=== PATIENT | male | born 1985 | race Caucasian/White ===

== ENCOUNTER 2024-05-11 19:03 | Emergency (ER) | payer SELFPAY ==
[2024-05-11] VITALS (9 sets, daily range): BP systolic 115–150; BP diastolic 63–84; PULSE 86; RESP 16; TEMP 36.9; O2SAT 95–100
--- NOTE | ~2024-05-11 | XR_ITS ---
XR hand LT min 3V Ordering provider: Tyree Kelly MD History: . 2nd finger laceration . Comparison: None. FINDINGS: BONES: No acute fracture. Possible dislocation the proximal interphalangeal joint of the second finge r is not excluded. Clinical correlation advised. JOINT SPACES: Possible narrowing of the proximal interphalangeal joint of the second finger.. SOFT TISSUES: Soft tissue swelling is seen in the area of the distal second finger. IMPRESSION: possible subluxation of the proximal interphalangeal joint of the second finger. Clinical evaluation advised. Reviewed, dictated and finalized at location A. REPAIRER STAMPING IMPRESSION: possible subluxation of the proximal interphalangeal joint of the second finger . Clinical evaluation advised.
--- NOTE | ~2024-05-11 | XR_ITS ---
XR chest 1V portable Ordering provider: Tyree Kelly MD History: 38 years Male with . Altered mental status . Comparison: None. FINDINGS: MEDIASTINUM: The cardiac silhouette is not enlarged. LUNGS: No infiltrates, effusions or pneumothorax. OTHER: No free air under the diaphragm. IMPRESSION: No acute cardiopulmonary pathology. Reviewed, dictated and finalized at location A. RINTENDENT STEVEDORING
--- NOTE | ~2024-05-11 | CT_ITS ---
CT brain wo con Ordering provider: Tyree Kelly MD History: 38 years Male with . Altered mental status . Comparison: None. Technique: CT of the head without contrast. Radiation reduction technique utilized.The dose-length pr oduct was 681 mGy-cm FINDINGS: BRAIN PARENCHYMA AND CSF SPACES: Postoperative changes in the right frontal lobe with metallic object s. Encephalomalacia is also seen in the area. No midline shift, mass effect or hemorrhage. The brain parenchyma and CSF spaces are otherwise normal. VISUALIZED PARANASAL SINUSES: Bilateral ethmoid sinus disease. Right maxillary sinus disease. MASTOIDS: Well aerated. BONES: The bones appear intact. SOFT TISSUES: Visualized nasopharynx is normal. Superficial soft tissues are normal. IMPRESSION: No acute intracranial findings. Metallic objects seen in the right frontal area with surrounding encephalomalacia most likely postope rative. Reviewed, dictated and finalized at location A. ANICAL ESTIMATOR IMPRESSION: No acute intracranial findings. Metallic objects seen in the right frontal area with surrounding encephalomalac ia most likely postoperative.
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
[2024-05-11 20:32] LABS: Basophils Absolute Auto 0.1 K/mm3 (0.0-0.1); Basophils Percent Auto 0.6 % (0.2-1.2); Eosinophils Absolute Auto 0.2 K/mm3 (0-0.3); Eosinophils Percent Auto 1.1 % (0-4.4); Hematocrit 34.7 % (42.0-52.0); Immature Granulocyte Absolute 0.04 K/mm3 (0.00-0.031); Immature Granulocyte Percent A 0.3 % (0-0.5); Lymphocytes Absolute Auto 2.98 K/mm3 (0.9-3.2); Lymphocytes Percent Auto 22.1 % (18.3-44.2); Mean Corpuscular HGB Conc 34.6 g/dl (32-36); Mean Corpuscular Hemoglobin 30.1 pg (26-34); Monocytes Absolute Auto 1.2 K/mm3 (0.1-0.6); Neutrophils Percent Auto 66.9 % (45.5-73.1); Platelet Count Result 337 k/mm3 (150-375); Red Blood Count 3.99 M/mm3 (4.6-6.20); Red Cell Distribution Width 11.8 % (11.5-14.5); White Blood Count 13.5 K/mm3 (4.5-10.0)
[2024-05-11 20:49] LABS: Acetaminophen < 10 ug/mL (10-30); Ethanol < 10 mg/dL (<10); Salicylate < 1.0 mg/dL (2-20)
[2024-05-11 21:01] LABS: Erythrocyte Sedimentation Rate 27 mm/hr (0-20)
[2024-05-11 21:15] LABS: Alanine Aminotransferase 41 U/L (6-50); Albumin Level 4.3 g/dL (3.5-5.1); Alkaline Phosphatase 70 U/L (38-126); Anion Gap 6 mmol/L (4-12); Aspartate Amino Transferase 49 U/L (17-59); Bilirubin,Total 0.7 mg/dL (0.2-1.3); Blood Urea Nitrogen 20 mg/dL (9-20); Calcium 9.6 mg/dL (8.4-10.2); Carbon Dioxide 24 mmol/L (22-30); Chloride 104 mmol/L (98-107); Estimated CRCL calculation 153 ml/min; Estimated Glomerular Filt Rate > 60; Glucose 99 mg/dL (65-110); Potassium 3.8 mmol/L (3.4-5.0); Sodium 134 mmol/L (137-145)
[2024-05-11] MEDS: cefTRIAXone 2 GM/NS 100 ML 2 GM/100 ML BAG IVPB (23:05)
== END 2024-05-12 00:50 | disposition short-term general hospital (02) ==
PROVIDERS: Emergency Provider Preventive Medicine Aerospace Medicine
DX: S61.211A Laceration without foreign body of left index finger without damage to nail, initial encounter (principal); W26.8XXA Contact with other sharp object(s), not elsewhere classified, initial encounter; M00.9 Pyogenic arthritis, unspecified
CPT/HCPCS: 36415; 70450; 71045; 73130; 80053; 80143; 80179; 82077; 85025; 85652; 86140; 87070; 87075; 87205; 96365; 99285; J0696

== ENCOUNTER 2024-05-24 13:10 | Emergency (ER) | payer MEDICAID, SELFPAY ==
--- NOTE | ~2024-05-24 | XR_ITS ---
EXAMINATION: XR hand LT min 3V DATE: 05/24/2024 14:46 INDICATION: Left hand infection. TECHNIQUE: 3 views of left hand were obtained. COMPARISON: Left hand radiographs 05/11/2024 FINDINGS: Clinodactyly is noted. There is amputation at second metacarpophalangeal joint. No fracture . Joint spaces are normal. IMPRESSION: 1. No evidence of osteomyelitis. Reviewed, dictated and finalized at location A. SSING CLERK
[2024-05-24 13:15] VITALS: BP 139/99; PULSE 80; RESP 20; TEMP 36.4; O2SAT 100
[2024-05-24 14:31] LABS: Basophils Absolute Auto 0.1 K/mm3 (0.0-0.1); Basophils Percent Auto 0.6 % (0.2-1.2); Eosinophils Absolute Auto 0.1 K/mm3 (0-0.3); Eosinophils Percent Auto 1.6 % (0-4.4); Immature Granulocyte Absolute 0.02 K/mm3 (0.00-0.031); Immature Granulocyte Percent A 0.3 % (0-0.5); Lymphocytes Absolute Auto 2.74 K/mm3 (0.9-3.2); Lymphocytes Percent Auto 35.5 % (18.3-44.2); Mean Corpuscular HGB Conc 34.3 g/dl (32-36); Mean Corpuscular Hemoglobin 30.5 pg (26-34); Mean Corpuscular Volume 88.8 fl (80-100); Mean Platelet Volume 9.5 fl (7.4-10.4); Monocytes Absolute Auto 0.8 K/mm3 (0.1-0.6); Monocytes Percent Auto 10.6 % (2.6-8.5); Neutrophils Percent Auto 51.4 % (45.5-73.1); Platelet Count Result 351 k/mm3 (150-375); Red Blood Count 3.94 M/mm3 (4.6-6.20); Red Cell Distribution Width 11.9 % (11.5-14.5); White Blood Count 7.7 K/mm3 (4.5-10.0)
[2024-05-24 14:42] LABS: Alanine Aminotransferase 82 U/L (6-50); Albumin Level 4.6 g/dL (3.5-5.1); Alkaline Phosphatase 67 U/L (38-126); Anion Gap 4 mmol/L (4-12); Aspartate Amino Transferase 101 U/L (17-59); Bilirubin,Total 0.6 mg/dL (0.2-1.3); Blood Urea Nitrogen 15 mg/dL (9-20); Calcium 9.6 mg/dL (8.4-10.2); Carbon Dioxide 26 mmol/L (22-30); Chloride 105 mmol/L (98-107); Estimated CRCL calculation 126 ml/min; Estimated Glomerular Filt Rate > 60; Glucose 95 mg/dL (65-110); Potassium 3.8 mmol/L (3.4-5.0); Sodium 135 mmol/L (137-145)
--- NOTE | 2024-05-24 15:06 | ED_ITS ---
HPI - Extremity Injury (Upper) General Chief Complaint: Extremity Injury, Upper Stated Complaint: follow up for my finger missing L. 2nd finger Time Seen by Provider: 05/24/24 14:02 History of Present Illness HPI narrative: 38-year-old male presents to the emergency department with concerns for left 2nd digit amputation complications. Patient was seen in our ED on 05/11/2024 and was found to have and infection of the left 2nd PIP. The patient was transferred to [facility] and had his left 2nd digit amputated on admission. he presents today for pain to the region . He is also reporting some purulent drainage from the incision site. he reports subjective fevers and nausea. He is a poor historian and states he has been in the hospital since the BC barnett was performed. States he was hospitalized at 1 point since the amputation for an infection where he had received IV antibiotics at [facility] [place]. He has also been seen at [facility] and [facility] in [place] but unfortunately patient has not filled any of his antibiotics. Related Data Allergies Allergy/AdvReac Type Severity Reaction Status Date / Time penicillin V Allergy Hives Verified 05/24/24 13:12 Review of Systems 2 Review of Systems: All systems reviewed & are unremarkable except as noted in HPI and below PMFSH Past Medical History Medical History No significant past medical history Surgical History Surgical History No significant past surgical history Exam 2 Narrative: GENERAL: Well-appearing, well-nourished, and in no acute distress. HEAD: Normocephalic, atraumatic. EYES: EOMI. ENT: Nares clear, no rhinorrhea or epistaxis. Mucous membranes moist. NECK: Supple. CHEST: Clear to auscultation. No respiratory distress. HEART: Regular rate and rhythm. No murmur heard. Normal peripheral pulses. ABDOMEN: Soft, nontender, nondistended, normal active bowel sounds. EXTREMITIES: Left second digit stump at the MCP with scab overlying the incision site, no wound dehiscence, no erythema, no fluctuation or induration, no purulent drainage, no warmth SKIN: Warm, dry, no rash. NEURO: No focal deficits. Alert and oriented x3 Course Vital Signs Vital signs: Vital Signs Temperature 97.6 F 05/24/24 13:15 Pulse Rate 80 05/24/24 13:15 Respiratory Rate 20 05/24/24 13:15 Blood Pressure 139/99 H 05/24/24 13:15 Pulse Oximetry 100 05/24/24 13:15 Oxygen Delivery Room Air 05/24/24 13:15 Temperature 97.6 F 05/24/24 13:15 Pulse Rate 80 05/24/24 13:15 Respiratory Rate 20 05/24/24 13:15 Blood Pressure 139/99 H 05/24/24 13:15 Pulse Oximetry 100 05/24/24 13:15 Oxygen Delivery Room Air 05/24/24 13:15 MDM - Extremity Injury (Upper) MDM Narrative Medical decision making narrative: 38-year-old male presents emergency department with concerns for complications to his left 2nd digit after an amputation was performed on 05/12/2024 at [facility]. See HPI for further history. Triage vitals without blood pressure 139/99, otherwise unremarkable. He is afebrile and nontoxic appearing. Exam is significant for left second digit stump at the MCP with scab overlying the incision site, no wound dehiscence, no erythema, no fluctuation or induration, no purulent drainage, no warmth. Overall no evidence of infection on exam. His lab work shows no leukocytosis. ESR is normal at 15. X-ray shows no evidence of osteomyelitis. Patient was updated on workup. Will provide ibuprofen for pain and start a course of keflex for possible early infection given reported increased pain, although exam again is reassuring. Advised close f/u with surgeon at [facility] discussed strict ED return precautions. He is agreeable with the plan verbalized understanding. Discharged in stable condition. Lab Data 05/24/24 14:23 05/24/24 14:23 Labs: Lab Results 05/24/24 Range/Units 14:23 WBC 7.7 (4.5-10.0) K/mm3 RBC 3.94 L (4.6-6.20) M/mm3 Hgb 12.0 L (14.0-18.0) g/dL Hct 35.0 L (42.0-52.0) % MCV 88.8 (80-100) fl MCH 30.5 (26-34) pg MCHC 34.3 (32-36) g/dl RDW 11.9 (11.5-14.5) % Plt Count 351 (150-375) k/mm3 MPV 9.5 (7.4-10.4) fl Immature Gran % (Auto) 0.3 (0-0.5) % Neut % (Auto) 51.4 (45.5-73.1) % Lymph % (Auto) 35.5 (18.3-44.2) % [place] % (Auto) 10.6 H (2.6-8.5) % Eos % (Auto) 1.6 (0-4.4) % Baso % (Auto) 0.6 (0.2-1.2) % Lymph # (Auto) 2.74 (0.9-3.2) K/mm3 [place] # (Auto) 0.8 H (0.1-0.6) K/mm3 Eos # (Auto) 0.1 (0-0.3) K/mm3 Baso # (Auto) 0.1 (0.0-0.1) K/mm3 Abs Immat Gran (auto) 0.02 (0.00-0.031) K/mm3 Absolute Neuts (auto) 4.0 (1.3-6.7) K/mm3 Absolute Nucleated RBC 0.000 (0.0-0.012) K/mm3 Nucleated RBC % 0.0 (0.0-0.2) % ESR 15 (0-20) mm/hr Sodium 135 L (137-145) mmol/L Potassium 3.8 (3.4-5.0) mmol/L Chloride 105 (98-107) mmol/L Carbon Dioxide 26 (22-30) mmol/L Anion Gap 4 (4-12) mmol/L BUN 15 D (9-20) mg/dL Creatinine 0.70 (0.7-1.3) mg/dL Estim Creat Clear Calc 126 ml/min Estimated GFR > 60 (59 - ) Glucose 95 (65-110) mg/dL Calcium 9.6 (8.4-10.2) mg/dL Total Bilirubin 0.6 (0.2-1.3) mg/dL AST 101 H (17-59) U/L ALT 82 H (6-50) U/L Alkaline Phosphatase 67 (38-126) U/L C-Reactive Protein Pending Total Protein 7.0 (6.3-8.2) g/dL Albumin 4.6 (3.5-5.1) g/dL Discharge Plan Discharge Clinical Impression: Amputation finger-complicated Qualifiers: Encounter type: initial encounter Qualified Code(s): S68.119A - Complete traumatic metacarpophalangeal amputation of unspecified finger, initial encounter Patient Disposition: Home, Self-Care Condition: Stable Instructions: Antibiotic Form, Finger Amputation (ED) Additional Instructions: Take the antibiotics as prescribed. Take ibuprofen as needed for pain. Follow up with your surgeon at [facility]. Return to the emergency department if you develop a fever, surrounding redness, drainage or other concerning symptoms Call Dr. Jimenez for follow up at [phone] Patient Language: [place] Prescriptions: New ibuprofen 800 mg tablet 800 mg PO TID PRN (Reason: pain) Qty: 20 0RF cephalexin 500 mg capsule 500 mg PO Q6H Qty: 28 0RF Follow-up/Referrals: UNKNOWN,DOCTOR [Primary Care Provider] -
[2024-05-24 15:10] LABS: Erythrocyte Sedimentation Rate 15 mm/hr (0-20)
[2024-05-24 15:40] VITALS: PULSE 83; RESP 20; TEMP 36.8; O2SAT 100
[2024-05-24 16:13] LABS: CRP < 0.5 mg/dL (<1.0)
== END 2024-05-24 15:41 | disposition home or self-care (01) ==
PROVIDERS: Emergency Provider Physician Assistant
DX: T87.89 Other complications of amputation stump (principal); G89.18 Other acute postprocedural pain; Y83.5 Amputation of limb(s) as the cause of abnormal reaction of the patient, or of later complication, without mention of misadventure at the time of the procedure
CPT/HCPCS: 36415; 73130; 80053; 85025; 85652; 86140; 99283

== ENCOUNTER 2024-07-04 16:45 | Emergency (ER) | payer OTHER, SELFPAY ==
--- NOTE | ~2024-07-04 | XR_ITS ---
EXAMINATION: XR hand LT min 3V DATE: 07/04/2024 21:55 INDICATION: Left hand pain and swelling. TECHNIQUE: 3 views of left hand were obtained. COMPARISON: Left hand radiographs 05/24/2024, 05/11/2024 FINDINGS: There is amputation at second metacarpophalangeal joint. No fracture. Joint spaces are norm al. IMPRESSION: 1. No evidence of osteomyelitis. Reviewed, dictated and finalized at location A. THESIA DIRECTOR
--- NOTE | ~2024-07-04 | CT_ITS ---
EXAMINATION: CT brain wo con DATE: 07/04/2024 21:48 INDICATION: Altered mental status. TECHNIQUE: Computed tomography (CT) of the head was performed without intravenous contrast. The mA wa s adjusted according to patient size. Iterative reconstruction technique was employed. The dose-lengt h product was 681.00 mGy-cm. COMPARISON: Head CT 05/11/2024 FINDINGS: There is hyperdense embolization material in right frontal lobe. There is chronic encephalo malacia in right frontal lobe. There is no acute ischemic infarct or intracranial hemorrhage. The frankie tricles are normal in size. There is mucosal thickening in the paranasal sinuses. The mastoid air kat ls are normal. There are skin gonzalo at the scalp on the left. IMPRESSION: 1. Hyperdense embolization material in right frontal lobe. 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 Reviewed, dictated and finalized at location A. E TRIMMER IMPRESSION: 1. Hyperdense embolization material in right frontal lobe. Chronic encephalomal acia in right frontal lobe.
--- OUTSIDE RECORDS SUMMARY | 2024-07-04 16:49 | XMS_ITS | Referral Summary ---
Author Organization [facility] becca Address [address] [place] [address] Care Team Providers Care Personal Property Appraiser Name Role Phone No, Physician Primary Care Provider [phone] Ashley Woodward MD Unavailable [phone] Ashley Woodward MD Unavailable [phone] Encounters Date Type Department Care Team Description 06/29/2024 3:03 AM DIRECTOR OF EMPLOYER SERVICES - 06/29/2024 4:24 AM [facility] Emergency [facility] Emergency Department [address] [place] [address] Baudilio Arellano MD Phantom pain (Primary Dx) Discharge Disposition: Discharge to home or self care 06/21/2024 3:33 AM DIRECTOR OF EMPLOYER SERVICES - 06/21/2024 11:59 PM DIRECTOR OF EMPLOYER SERVICES Hospital Encounter [facility] Emergency, Room R Discharge Disposition: Discharge to home or self care 06/20/2024 9:06 AM DIRECTOR OF EMPLOYER SERVICES - 06/21/2024 1:02 AM [facility] Emergency [facility] Emergency Department [address] [place] [address] Jyotsna Moralez MD Watson, Brendan Matthew, MD PhD Substance use (Primary Dx) Discharge Disposition: Discharge to home or self care 06/18/2024 6:32 PM DIRECTOR OF EMPLOYER SERVICES - 06/18/2024 11:59 PM DIRECTOR OF EMPLOYER SERVICES Hospital Encounter [facility] Emergency, Room R Discharge Disposition: Discharge to home or self care 06/10/2024 6:03 AM DIRECTOR OF EMPLOYER SERVICES - 06/10/2024 11:59 PM DIRECTOR OF EMPLOYER SERVICES Hospital Encounter [facility] Emergency, Room R Discharge Disposition: Discharge to home or self care 06/10/2024 10:23 PM DIRECTOR OF EMPLOYER SERVICES - 06/10/2024 11:28 PM DIRECTOR OF EMPLOYER SERVICES Emergency [facility] Emergency Department [address] [place] [address] Tamika Machado MD Amputated finger, subsequent encounter (Primary Dx); Finger pain, left Discharge Disposition: Discharge to home or self care 06/06/2024 1:29 AM DIRECTOR OF EMPLOYER SERVICES - 06/06/2024 11:59 PM DIRECTOR OF EMPLOYER SERVICES Hospital Encounter [facility] BILL[facility] Emergency, Room R Discharge Disposition: Discharge to home or self care 05/29/2024 2:53 AM DIRECTOR OF EMPLOYER SERVICES - 05/29/2024 5:16 AM [facility] Emergency [facility] Emergency Department [address] [place] [phone] Montrell Mir MD Neuropathic pain of finger, left (Primary Dx); Cold exposure, initial encounter Discharge Disposition: Discharge to home or self care 05/25/2024 4:48 PM DIRECTOR OF EMPLOYER SERVICES - 05/28/2024 2:45 PM DIRECTOR OF EMPLOYER SERVICES Hospital Encounter [address] [phone] Ethan Wolf MD Osborn, MD Esdras Castañeda, Ethan Yee MD Bizarre behavior (Primary Dx); Nonadherence to medication; Use of cannabis; Psychomotor restlessness; 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]; Seizure disorder (CMS/[facility]) ([facility]) [G40.909] Discharge Disposition: Discharge to home or self care 05/20/2024 2:30 AM DIRECTOR OF EMPLOYER SERVICES - 05/20/2024 4:00 AM [facility] Emergency [address] [address] Westley Melgar MD Cold exposure, initial encounter (Primary Dx); Left hand pain Discharge Disposition: Discharge to home or self care 05/12/2024 5:43 AM DIRECTOR OF EMPLOYER SERVICES - 05/19/2024 4:14 PM DIRECTOR OF EMPLOYER SERVICES Hospital Encounter [address] [phone] Monroe Martínez MD House, Cheryl Sorensen MD PhD Parveen, MD Mark Leroy Natalia, MD Farrag, Candi Ye MD Finger infection (Primary Dx) Discharge Disposition: Discharge to home or self care 05/04/2024 4:13 AM DIRECTOR OF EMPLOYER SERVICES - 05/04/2024 11:59 PM DIRECTOR OF EMPLOYER SERVICES Hospital Encounter [facility] Emergency, Room R Discharge Disposition: Discharge to home or self care 04/30/2024 2:31 PM DIRECTOR OF EMPLOYER SERVICES - 04/30/2024 3:15 PM DIRECTOR OF EMPLOYER SERVICES Emergency [facility] Emergency Department [address] [place] [address] Cellulitis, unspecified cellulitis site (Primary Dx) Discharge Disposition: Discharge to home or self care 04/18/2024 11:11 AM DIRECTOR OF EMPLOYER SERVICES - 04/18/2024 11:59 PM DIRECTOR OF EMPLOYER SERVICES Hospital Encounter [facility] AMBULANCE BILLING Emergency, Room R Discharge Disposition: Discharge to home or self care from Last 3 Months Allergies Active Allergy Reactions Criticality Noted Date Comments Penicillins Unknown 01/14/[address] (DEPAKOTE) 500 mg EC tabletIndicatio ns:epilepsy Take 2 tablets (1,000 mg total) by mouth 2 (two) times a day 120 tablet 4 Active OLANZapine (ZyPREXA) 10 mg tabletIndicatio ns:Bipolar Disorder Take 1 tablet (10 mg total) by mouth nightly 30 tablet 4 Active ibuprofen (ADVIL,MOTRIN) 400 mg tabletIndicatio ns:Pain Take 1 tablet (400 mg total) by mouth every 6 (six) hours as needed for pain for up to 12 doses 12 tablet 5 Active gabapentin (NEURONTIN) 300 mg capsuleIndicati ons:Neuropathic Pain Take 1 capsule (300 mg total) by mouth 3 (three) times a day for 5 days 15 capsule 5 Active gabapentin (NEURONTIN) 300 mg capsuleIndicati ons:Neuropathic Pain Take 1 capsule (300 mg total) by mouth 3 (three) times a day 90 capsule 4 06/29/19 25 Discontinu ed(Reorder ) Active Problems Problem Noted Date Diagnosed Date Substance induced mood disorder (CMS/HCC) 2023 Bizarre behavior 05/26/2024 Use of cannabis 05/26/2024 Unspecified mood (affective) disorder 05/26/2024 Assessment & Plan (05/28/2024 8:43 AM DIRECTOR OF EMPLOYER SERVICES): Patient with known history of adriana, during this admission has presented with bizarre behavior, disorganization of thought, impulsivity, irritability, FOI, pressurized speech, agitation. UDS positive for cannabis but negative for amphetamine and cocaine, although has been positive in the past. Current differential diagnosis includes substance induced affective disorder (secondary to PCP) versus bipolar disorder versus schizoaffective disorder bipolar type, more support for substance given rapid resolution. Will continue medications as is given concern that patient has not been taking outpatient medications. - Continue olanzapine 5 mg BID - AGITATION: Olanzapine 10mg PO/IM Finger infection 05/23/2024 Left index finger cellulitis concerning for septic arthritis 05/12/2024 Assessment & Plan (05/22/2024 6:42 PM DIRECTOR OF EMPLOYER SERVICES): Pt sustained stretch box tender laceration over LEFT IF PIPJ on 04/30 and was treated at OSH ED with PO abx. Recovery complicated by development of dorsal IF abscess requiring I/D on 05/04 and admission for IV Abx at OSH, however patient left AMA shortly thereafter and did not fill his prescribed PO abx. Presents here 05/12. XR showed soft tissue swelling about left index finger and new joint space loss and irregularity involving the subjacent proximal interphalangeal joint, suspicious for septic arthritis. 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 Repeat Bcx 05/14 NGTD - Surgical path cx pending. - Cefepime (05/11- 05/13) - Vanc (05/11-05/16) -Bactrim 05/16-05/19 due to hyperkalemia Plan -Pathology resulted on 05/19 neg margin for OM -ID antibiotics stewardship recommended to hold on Abx if clinically improving wound as s/p completing 7 days postop Abx with negative margins of the amputated L index - Plastics following and they will set up f/u appt at 2 weeks postop. - Dressing: Daily hand washing (no soaks) with bandaid under splint Schizophrenia 05/12/2024 Assessment & Plan (05/19/2024 4:18 PM DIRECTOR OF EMPLOYER SERVICES): Resumed Haldol, seroquel, doxepin Resume outpatient follow up Homeless 05/12/2024 Assessment & Plan (05/19/2024 4:16 PM DIRECTOR OF EMPLOYER SERVICES): SW provided a list of shelters for patient to call on discharge Counseled against drug use Abscess of index finger 05/05/2024 Partial symptomatic epilepsy with complex partial seizures, intractable, without status epilepticus 01/15/2019 Intracranial hemorrhage 04/25/2016 AVM (arteriovenous malformation) brain 6 Bipolar 1 disorder 11/05/2015 Assessment & Plan (05/19/2024 4:18 PM DIRECTOR OF EMPLOYER SERVICES): Resumed home Haldol, seroquel, doxepin Resume Outpatient follow up Seizure disorder ([facility]) 11/05/2015 Assessment & Plan (05/28/2024 8:44 AM DIRECTOR OF EMPLOYER SERVICES): Has not been taking outpatient seizure medications, which include Depakote 1000 mg BID, carbamazepine 400 mg BID, clonazepam 1 mg BID. Do not believe that patient was medication compliant, which led to prescription of additional medications despite lack of need. Allegedly, patient has not had a seizure for a while despite not taking medications as evidenced by subtherapeutic lab draw. Continue medications given that patient hasn't been having seizures. Has PRN klonopin. - Continue Depakote 1000mg BID. - Continue PRN Klonopin. Assessment & Plan (05/19/2024 4:19 PM DIRECTOR OF EMPLOYER SERVICES): Pt does not recall when his last seizure was but thinks it was not that long ago (at least less than a year). Has not been taking home Carbamazepine, depakote, keppra because the people [he] was with locked up [his] medications . - Klonopin hasn't been dispensed since 03/2024 so will hold. - Restarted carbamazepine, depakote and keppra Resume outpatient follow up Immunizations Name Administration Dates Next Due Tdap 04/30/2024 Social History Tobacco Use Types Packs/Day Years Used Date Smoking Tobacco: Unknown Tobacco Cessation:Counseling Given: Not Answered Comments:Pt said I don't know if I still smoke at all Passive Exposure Comments:pt said I don't know if I still smoke at all Humiliation, Afraid, Rape, a nd Kick questionnaire Answer Date Recorded Within the last year, have y ou been afraid of your partner or ex-partner? Patient unable to answer 05/26/2024 Within the last year, have y ou been humiliated or emotionally abused in other ways by your partner or ex-partner? Patient unable to answer 05/26/2024 Within the last year, have y ou been kicked, hit, slapped, or otherwise physically hurt by your partner or ex-partner? Patient unable to answer 05/26/2024 Within the last year, have y ou been raped or forced to have any kind of sexual activity by your partner or ex-partner? Patient unable to answer 05/26/2024 Social Connection and Isolation Panel [NHANES] A nswer Date Recorded In a typical week, how many times do you talk on the phone with family, friends, or neighbors? Patient unable to answer 05/26/2024 How often do you get togethe r with friends or relatives? Patient unable to answer 05/26/2024 How often do you attend chur or synagogue services? Patient unable to answer 05/26/2024 Do you belong to any clubs o r organizations such as nondenominational groups, unions, fraternal or athletic groups, or school groups? Patient unable to answer 05/26/2024 How often do you attend meet ings of the clubs or organizations you belong to? Patient unable to answer 05/26/2024 Are you , , di vorced, , never , or living with a partner? Patient unable to answer 05/26/2024 Overall Financial Resource Strain (CARDIA) Answe r Date Recorded How hard is it for you to pa y for the very basics like food, housing, medical care, and heating? Very hard 05/26/2024 [facility] - Occupational Stress Questionnaire Answer Date Recorded Do you feel stress - tense, restless, nervous, or anxious, or unable to sleep at night because your mind is troubled all the time - these days? Patient unable to answer 05/26/2024 Hunger Vital Sign Answer Date Recorded Within the past 12 months, y ou worried that your food would run out before you got the money to buy more. Patient unable to answer 05/26/2024 Within the past 12 months, t he food you bought just didn't last and you didn't have money to get more. Patient unable to answer 05/26/2024 PRAPARE - Transportation Answer Date Re corded In the past 12 months, has l ack of transportation kept you from medical appointments or from getting medications? Yes 05/08 In the past 12 months, has l ack of transportation kept you from meetings, work, or from getting things needed for daily living? Yes 05/26/2024 Housing Stability Vital Sign Answer Cristopher e Recorded In the last 12 months, was t here a time when you were not able to pay the mortgage or rent on time? Yes 05/26/2024 In the past 12 months, how m any times have you moved where you were living? 1 05/26/2024 At any time in the past 12 m onths, were you homeless or living in a halfway (including now)? Yes 05/26/2024 Personal Safety Answer Date Recorded Have you ever been in or are you currently in a harmful physical or emotional relationship or is someone making you feel afraid or unsafe? Denies 06/29/2024 Sex and Gender Information Value Date Recorded Sex Assigned at Not on file Legal Sex Male 2:11 PM DIRECTOR OF EMPLOYER SERVICES Gender Identity Not on file Sexual Orientation Not on file Last Filed Vital Signs Vital Sign Reading Time Taken Comments Blood Pressure 126/72 06/29/2024 3:00 AM DIRECTOR OF EMPLOYER SERVICES Pulse 89 06/29/2024 3:00 AM DIRECTOR OF EMPLOYER SERVICES Temperature 36.8 ??C (98.3 ??F) 06/29/2024 3:00 AM CS T Respiratory Rate 16 06/29/2024 3:00 AM DIRECTOR OF EMPLOYER SERVICES Oxygen Saturation 100% 06/29/2024 3:00 AM DIRECTOR OF EMPLOYER SERVICES Inhaled Oxygen Concentration - - Weight 77.1 kg (170 lb) 06/29/2024 3:00 AM DIRECTOR OF EMPLOYER SERVICES Height 177.8 cm (5' 10 ) 06/10/2024 9:40 PM DIRECTOR OF EMPLOYER SERVICES Body Mass Index 24.39 06/10/2024 9:40 PM DIRECTOR OF EMPLOYER SERVICES Functional Status * Are you deaf or do you have serious difficulty hearing? Answer Date of Assessment Author No 05/26/2024 12:43 PM DIRECTOR OF EMPLOYER SERVICES Francesca Rojo, COMMERCIAL COLLECTIONS DRIVER * Are you blind or do you have serious difficulty seeing, even when wearing glasses? Answer Date of Assessment Author No 05/26/2024 12:43 PM DIRECTOR OF EMPLOYER SERVICES Francesca Rojo, COMMERCIAL COLLECTIONS DRIVER * Do you have serious difficulty walking or climbing stairs? Answer Date of Assessment Author No 05/26/2024 12:43 PM DIRECTOR OF EMPLOYER SERVICES Francesca Rojo, COMMERCIAL COLLECTIONS DRIVER * Do you have serious difficulty dressing or bathing? Answer Date of Assessment Author No 05/26/2024 12:43 PM DIRECTOR OF EMPLOYER SERVICES Francesca Rojo, COMMERCIAL COLLECTIONS DRIVER * Because of a physical, mental, or emotional condition, do you have serious difficulty doing errandsalone such as visiting the doctor? Answer Date of Assessment Author No 05/26/2024 12:43 PM Francesca Olvera, COMMERCIAL COLLECTIONS DRIVER Mental Status * Because of a physical, mental, or emotional condition, do you have serious difficulty concentrating, remembering, or making decisions? (5 years old or older) Answer Entry Date Author No 05/26/2024 12:43 PM Francesca Olvera, COMMERCIAL COLLECTIONS DRIVER Plan of Treatment Not on file Procedures Procedure Name Priority Date/Time Associated Diagnosis Comments URINALYSIS AND REFLEX TO MICROSCOPIC STAT 06/20/2024 11:42 AM DIRECTOR OF EMPLOYER SERVICES DRUGS OF ABUSE SCREEN, URINE WITHOUT CONFIRMATION STAT 06/20/2024 11:42 AM DIRECTOR OF EMPLOYER SERVICES EGFR STAT 06/20/2024 9:16 AM DIRECTOR OF EMPLOYER SERVICES VALPROIC ACID LEVEL, TOTAL STAT 06/20/2024 9:16 AM DIRECTOR OF EMPLOYER SERVICES DIFFERENTIAL AUTO STAT 06/20/2024 9:1 6 AM DIRECTOR OF EMPLOYER SERVICES ETHANOL STAT 06/20/2024 9:16 AM DIRECTOR OF EMPLOYER SERVICES THYROID FUNCTION CASCADE STAT 06/20/2024 9:16 AM DIRECTOR OF EMPLOYER SERVICES COMPREHENSIVE METABOLIC PANEL STAT 06/20/2024 9:16 AM DIRECTOR OF EMPLOYER SERVICES CBC WITH AUTO DIFFERENTIAL STAT 06/20/2024 9:16 AM DIRECTOR OF EMPLOYER SERVICES POCT RAPID HIV ANTIBODY COMMUNITY SCREENING-CONOR ELIGIBLE Routine 05/29/2024 4:17 AM DIRECTOR OF EMPLOYER SERVICES XR HAND LEFT 3 OR MORE VIEWS ED 05/29/2024 3:38 AM DIRECTOR OF EMPLOYER SERVICES ED CRITICAL CARE Routine 05/26/2024 5:15 PM DIRECTOR OF EMPLOYER SERVICES URINALYSIS, MICROSCOPIC ONLY STAT 05/25/2024 10:06 PM DIRECTOR OF EMPLOYER SERVICES DRUGS OF ABUSE SCREEN, URINE WITHOUT CONFIRMATION STAT 05/25/2024 10:06 PM DIRECTOR OF EMPLOYER SERVICES URINALYSIS AND REFLEX TO MICROSCOPIC AND CULTURE STAT 05/25/2024 10:06 PM DIRECTOR OF EMPLOYER SERVICES EGFR STAT 05/25/2024 5:37 PM DIRECTOR OF EMPLOYER SERVICES DIFFERENTIAL AUTO STAT 05/25/2024 5:3 7 PM DIRECTOR OF EMPLOYER SERVICES ETHANOL STAT 05/25/2024 5:37 PM DIRECTOR OF EMPLOYER SERVICES THYROID FUNCTION CASCADE STAT 05/25/2024 5:37 PM DIRECTOR OF EMPLOYER SERVICES BASIC METABOLIC PANEL STAT 05/25/2024 5:37 PM DIRECTOR OF EMPLOYER SERVICES CBC WITH AUTO DIFFERENTIAL STAT 05/25/2024 5:37 PM DIRECTOR OF EMPLOYER SERVICES VALPROIC ACID LEVEL, TOTAL STAT 05/25/2024 5:37 PM DIRECTOR OF EMPLOYER SERVICES CARBAMAZEPINE LEVEL, TOTAL STAT 05/25/2024 5:37 PM DIRECTOR OF EMPLOYER SERVICES DRUGS OF ABUSE SCREEN, URINE WITH REFLEX CONFIRMATION Routine 05/19/2024 9:28 AM DIRECTOR OF EMPLOYER SERVICES EGFR Routine 05/19/2024 4:58 AM DIRECTOR OF EMPLOYER SERVICES DIFFERENTIAL AUTO Routine 05/19/2024 4:5 8 AM DIRECTOR OF EMPLOYER SERVICES COMPREHENSIVE METABOLIC PANEL Routine 05/19/2024 4:58 AM DIRECTOR OF EMPLOYER SERVICES CBC WITH AUTO DIFFERENTIAL Routine 05/19/2024 4:58 AM DIRECTOR OF EMPLOYER SERVICES EGFR Routine 05/18/2024 4:54 AM DIRECTOR OF EMPLOYER SERVICES DIFFERENTIAL AUTO Routine 05/18/2024 4:5 4 AM DIRECTOR OF EMPLOYER SERVICES COMPREHENSIVE METABOLIC PANEL Routine 05/18/2024 4:54 AM DIRECTOR OF EMPLOYER SERVICES CBC WITH AUTO DIFFERENTIAL Routine 05/18/2024 4:54 AM DIRECTOR OF EMPLOYER SERVICES EGFR Routine 05/17/2024 4:30 AM DIRECTOR OF EMPLOYER SERVICES DIFFERENTIAL AUTO Routine 05/17/2024 4:3 0 AM DIRECTOR OF EMPLOYER SERVICES COMPREHENSIVE METABOLIC PANEL Routine 05/17/2024 4:30 AM DIRECTOR OF EMPLOYER SERVICES CBC WITH AUTO DIFFERENTIAL Routine 05/17/2024 4:30 AM DIRECTOR OF EMPLOYER SERVICES EGFR Routine 05/16/2024 5:18 AM DIRECTOR OF EMPLOYER SERVICES DIFFERENTIAL AUTO Routine 05/16/2024 5:1 8 AM DIRECTOR OF EMPLOYER SERVICES VANCOMYCIN LEVEL TROUGH Timed 05/16/2024 5:18 AM DIRECTOR OF EMPLOYER SERVICES COMPREHENSIVE METABOLIC PANEL Routine 05/16/2024 5:18 AM DIRECTOR OF EMPLOYER SERVICES CBC WITH AUTO DIFFERENTIAL Routine 05/16/2024 5:18 AM DIRECTOR OF EMPLOYER SERVICES EGFR Routine 05/15/2024 4:41 AM DIRECTOR OF EMPLOYER SERVICES DIFFERENTIAL AUTO Routine 05/15/2024 4:4 1 AM DIRECTOR OF EMPLOYER SERVICES VANCOMYCIN LEVEL TROUGH Timed 05/15/2024 4:41 AM DIRECTOR OF EMPLOYER SERVICES COMPREHENSIVE METABOLIC PANEL Routine 05/15/2024 4:41 AM DIRECTOR OF EMPLOYER SERVICES CBC WITH AUTO DIFFERENTIAL Routine 05/15/2024 4:41 AM DIRECTOR OF EMPLOYER SERVICES BLOOD CULTURE Routine 05/14/2024 11:29 PM DIRECTOR OF EMPLOYER SERVICES BLOOD CULTURE Routine 05/14/2024 11:29 PM DIRECTOR OF EMPLOYER SERVICES EGFR Routine 05/14/2024 5:08 AM DIRECTOR OF EMPLOYER SERVICES DIFFERENTIAL AUTO Routine 05/14/2024 5:0 8 AM DIRECTOR OF EMPLOYER SERVICES COMPREHENSIVE METABOLIC PANEL Routine 05/14/2024 5:08 AM DIRECTOR OF EMPLOYER SERVICES CBC WITH AUTO DIFFERENTIAL Routine 05/14/2024 5:08 AM DIRECTOR OF EMPLOYER SERVICES VANCOMYCIN LEVEL TROUGH STAT 05/13/2024 4:15 PM DIRECTOR OF EMPLOYER SERVICES EGFR Routine 05/13/2024 6:14 AM DIRECTOR OF EMPLOYER SERVICES DIFFERENTIAL AUTO Routine 05/13/2024 6:1 4 AM DIRECTOR OF EMPLOYER SERVICES COMPREHENSIVE METABOLIC PANEL Routine 05/13/2024 6:14 AM DIRECTOR OF EMPLOYER SERVICES CBC WITH AUTO DIFFERENTIAL Routine 05/13/2024 6:14 AM DIRECTOR OF EMPLOYER SERVICES VALPROIC ACID LEVEL, TOTAL Routine 05/13/2024 6:14 AM DIRECTOR OF EMPLOYER SERVICES CARBAMAZEPINE LEVEL, TOTAL Routine 05/13/2024 6:14 AM DIRECTOR OF EMPLOYER SERVICES B CHECK SAMPLE STAT 05/12/2024 12:27 PM DIRECTOR OF EMPLOYER SERVICES AEROBIC AND ANAEROBIC CULTURE AND GRAM STAIN Routine 05/12/2024 12:27 PM DIRECTOR OF EMPLOYER SERVICES SURGICAL PATHOLOGY Routine 05/12/2024 12 :00 PM DIRECTOR OF EMPLOYER SERVICES TYPE AND SCREEN STAT 05/12/2024 9:30 AM DIRECTOR OF EMPLOYER SERVICES XR HAND LEFT 3 OR MORE VIEWS ED 05/12/2024 6:27 AM DIRECTOR OF EMPLOYER SERVICES EGFR STAT 05/12/2024 6:05 AM DIRECTOR OF EMPLOYER SERVICES DIFFERENTIAL AUTO STAT 05/12/2024 6:0 5 AM DIRECTOR OF EMPLOYER SERVICES CRP (ACUTE PHASE) STAT 05/12/2024 6:0 5 AM DIRECTOR OF EMPLOYER SERVICES ERYTHROCYTE SEDIMENTATION RATE STAT 05/12/2024 6:05 AM DIRECTOR OF EMPLOYER SERVICES COMPREHENSIVE METABOLIC PANEL STAT 05/12/2024 6:05 AM DIRECTOR OF EMPLOYER SERVICES CBC WITH AUTO DIFFERENTIAL STAT 05/12/2024 6:05 AM DIRECTOR OF EMPLOYER SERVICES BLOOD CULTURE STAT 05/12/2024 6:05 AM DIRECTOR OF EMPLOYER SERVICES BLOOD CULTURE STAT 05/12/2024 6:05 AM DIRECTOR OF EMPLOYER SERVICES XR FINGER 2ND INDEX LEFT ED 04/30/2024 2:29 PM DIRECTOR OF EMPLOYER SERVICES HEPATITIS PANEL, ACUTE Routine 0 1:01 PM CDT from Last 3 Months or Most Recently Relevant to Health Maintenance Results * Urinalysis reflex to microscopic (06/20/2024 11:42 AM DIRECTOR OF EMPLOYER SERVICES) Color, ur Straw Yellow Clarity, ur Clear Clear [facility] Specific gravity, ur 1.009 1.003 - 1.030 [facility] pH, urine 7.0 [facility] Comment: Interpretive Data ? Urine pH is affected by diet, medications, systemic acid-base disturbances, and renal tubular function. ??pH may affect urinary stone formation. ??For example, urine pH below 6.0 may help reduce the tendency for calcium phosphate stones and pH greater than 6.0 may reduce the tendency for uric acid stone formation. Source: [facility] Current Interpretive Data was last revised on 2017 Protein, ur ql Negative Negative [facility] Glucose, ur ql Negative Negative [facility] Ketones, ur Negative Negative [facility] Bilirubin, ur Negative Negative [facility] Blood, ur Negative Negative [facility] Urobilinogen, ur <2.0 <2.0 mg/dL [facility] Nitrite, ur Negative Negative [facility] Leukocyte esterase, ur Negative Negative [facility] UA reflex comment Reflex conditions for microscopic UA not met. [facility] Urine 06/20/2024 11:4 2 AM DIRECTOR OF EMPLOYER SERVICES 06/20/2024 12:46 PM DIRECTOR OF EMPLOYER SERVICES Jyotsna Moralez MD LAB URINE ORDERABLES Final Result [facility] Department [place] [address] * (ABNORMAL) Drugs of Abuse Screen, Urine without Confirmation (06/20/2024 11:42 AM DIRECTOR OF EMPLOYER SERVICES) Amphetamine, ur Not Detected [facility] 500ng/mL Comment: Interpretive Data - Amphetamines: ??Samples containing greater than 500 ng/mL d-methamphetamine ??or other cross-reacting amphetamine compounds are reported as positive. ??Amphetamine immunoassays are subject to significant false positive rates due to cross-reactivity of non-amphetamine drugs. Confirmatory testing required for definitive results. Current Interpretive Data was last reviewed 2023. Barbiturates, ur Not Detected CutOff 200ng/mL [facility] Comment: Interpretive Data - Barbiturates: ??Samples containing greater than 200 ng/mL secobarbital or other cross-reacting barbiturate compounds are reported as positive. ??False positive and false negative results are possible. Confirmatory testing required for definitive results. Current Interpretive Data was last reviewed 2023. Benzodiazepines, ur Not Detected CutOff 100ng/mL [facility] Comment: Interpretive Data - Benzodiazepines: ??Samples containing greater than 100 ng/mL nordiazepam or other cross-reacting compounds are reported as positive. False positive and false negative results are possible. Confirmatory testing required for definitive results. Current Interpretive Data was last reviewed 2023. Cannabinoids, ur Screen Positive, presumptive (A) CutOff 50 ng/mL [facility] Comment: Interpretive Data - Cannabinoids: ??Samples containing greater than 50 ng/mL delta-9 THC -COOH or other cross-reacting compounds are reported as positive. ??False positive and false negative results are possible. ??Confirmatory testing required for definitive results. Current Interpretive Data was last reviewed 2023. Cocaine, ur Not Detected CutOff 150ng/mL [facility] Comment: Interpretive Data - Cocaine: ??Samples containing greater than 150 ng/mL benzoylecgonine or other cross-reacting compounds are reported as positive. False positive and false negative results are possible. Confirmatory testing required for definitive results. Current Interpretive Data was last reviewed 2023. Fentanyl, Ur Not Detected CutOff 5 ng/mL [facility] Comment: Interpretive Data - Fentanyl: ?? Samples containing greater than 5 ng/mL norfentanyl, fentanyl, or other cross-reacting fentanyl compounds are reported as positive. False positive and false negative results are possible. Confirmatory testing required for definitive results. Current Interpretive Data was last reviewed 2023. Methadone, ur Not Detected CutOff 300ng/mL [facility] Comment: Interpretive Data - Methadone: ??Samples containing greater than 300 ng/mL d,l-methadone or other cross-reacting compounds are reported as positive. ??False positive and false negative results are possible. Confirmatory testing required for definitive results. Current Interpretive Data was last reviewed 2023. Opiates, ur Not Detected CutOff 300ng/mL [facility] Comment: Interpretive Data - Opiates: ??Samples containing greater than 300 ng/mL morphine or other cross-reacting compounds are reported as positive. ??False positive and false negative results are possible. Confirmatory testing required for definitive results. Current Interpretive Data was last reviewed 2023. Oxycodone, ur Not Detected CutOff 100ng/mL [facility] Comment: Interpretive Data - Oxycodone: ??Samples containing greater than 100 ng/mL oxycodone or other cross-reacting compounds are reported as ??positive. ??False positive and false negative results are possible. Confirmatory testing required for definitive results. Current Interpretive Data was last reviewed 2023. Phencyclidine, ur Not Detected CutOff 25 ng/mL [facility] Comment: Interpretive Data - Phencyclidine: ??Samples containing greater than 25 ng/mL phencyclidine or other cross-reacting compounds are reported as positive. ??False positive and false negative results are possible. Confirmatory testing required for definitive results. Current Interpretive Data was last reviewed 2023. Urine Creatinine 37 mg/dL [facility] Comment: Interpretive Data Urine Creatinine: < 10 mg/dL is extremely dilute = or > 10 but < 20 mg/dL is dilute = or > 20 mg/dL is normal Current Interpretive Data was last revised on 2017. Urine 06/20/2024 11:4 2 AM DIRECTOR OF EMPLOYER SERVICES 06/20/2024 12:46 PM DIRECTOR OF EMPLOYER SERVICES Narrative [facility] - 06/20/2024 1:25 PM DIRECTOR OF EMPLOYER SERVICES Drug of Abuse screening is performed by immunoassay for medical purposes only. ??This is not to be used for Pain Management purposes. us Jyotsna Moralez MD LAB URINE ORDERABLES Final Result [facility] Department [place] [address] * eGFR (06/20/2024 9:16 AM DIRECTOR OF EMPLOYER SERVICES) Pathologist [facility] eGFR >90 >=60 mL/min/1. 73 m2 Comment: Interpretive Data Reference Interval Normal ?>/= 90 mL/min/1.73m2 Mildly decreased* ? 60 - 89 mL/min/1.73m2 Mildly to moderately decreased ?45 - 59 mL/min/1.73m2 Moderately to severely decreased ??30 - 44 mL/min/1.73m2 Severely decreased ?15 - 29 mL/min/1.73m2 Kidney Failure ?< 15 ??mL/min/1.73m2 *Relative to young adult level Estimated glomerular filtration rate is determined by the 2020 CKD-EPI equation recommended by the National Kidney Foundation (A Unifying Approach to GFR Estimation: Recommendations of the NKF-ASK Task Force on Reassessing the Inclusion of Race in Diagnosing Kidney Disease, JASN 2020). The CKD-EPI equation should not be used for patients with unstable renal function and has not been validated in children and those over 70. Current interpretive data was last reviewed 2021. Blood 06/20/2024 9:16 AM DIRECTOR OF EMPLOYER SERVICES 06/20/2024 9:54 AM DIRECTOR OF EMPLOYER SERVICES us Jyotsna Moralez MD LAB BLOOD ORDERABLES Final Result [facility] Department [place] [address] * Differential, auto (06/20/2024 9:16 AM DIRECTOR OF EMPLOYER SERVICES) Pathologist [facility] Neutrophil abs 5.3 1.5 - 6.5 K/cumm Imm gran abs 0.0 0.0 - 0.1 K/cumm [facility] Lymphocyte abs 2.8 0.8 - 3.3 K/cumm [facility] Monocyte abs 0.6 0.2 - 0.8 K/cumm [facility] Eosinophil abs 0.2 0.0 - 0.5 K/cumm [facility] Basophil abs 0.1 0.0 - 0.1 K/cumm [facility] Neutrophil pct 58.8 % [facility] Comment: Interpretive Data Percent cell count reference ranges are not reported, since discordance with absolute values may lead to misinterpretation of CBC data. Current Interpretive Data was last revised on 2017. Imm gran pct 0.4 % [facility] Comment: Interpretive Data Percent cell count reference ranges are not reported, since discordance with absolute values may lead to misinterpretation of CBC data. Current Interpretive Data was last revised on 2017. Lymphocyte pct 31.7 % [facility] Comment: Interpretive Data Percent cell count reference ranges are not reported, since discordance with absolute values may lead to misinterpretation of CBC data. Current Interpretive Data was last revised on 2017. Monocyte pct 6.1 % [facility] Comment: Interpretive Data Percent cell count reference ranges are not reported, since discordance with absolute values may lead to misinterpretation of CBC data. Current Interpretive Data was last revised on 2017. Eosinophil pct 2.3 % [facility] Comment: Interpretive Data Percent cell count reference ranges are not reported, since discordance with absolute values may lead to misinterpretation of CBC data. Current Interpretive Data was last revised on 2017. Basophil pct 0.7 % [facility] Comment: Interpretive Data Percent cell count reference ranges are not reported, since discordance with absolute values may lead to misinterpretation of CBC data. Current Interpretive Data was last revised on 2017. Blood 06/20/2024 9:16 AM DIRECTOR OF EMPLOYER SERVICES 06/20/2024 9:46 AM DIRECTOR OF EMPLOYER SERVICES Jyotsna Moralez MD LAB BLOOD ORDERABLES Final Result Performing Organization Address [facility] Co de Phone Number [facility] Department [place] [address] * Thyroid Function Pratt (06/20/2024 9:16 AM DIRECTOR OF EMPLOYER SERVICES) TSH 0.91 0.30 - 4.20 mcIUnit/mL Blood 06/20/2024 9:16 AM DIRECTOR OF EMPLOYER SERVICES 06/20/2024 9:46 AM DIRECTOR OF EMPLOYER SERVICES Jyotsna Moralez MD LAB BLOOD ORDERABLES Final Result Performing Organization Address [facility]/ZIP Co de Phone Number [facility] Department [place] [address] * CBC with auto differential (06/20/2024 9:16 AM DIRECTOR OF EMPLOYER SERVICES) Pathologist [facility] WBC 9.0 3.8 - 9.9 K/cumm Hgb 13.3 13.0 - 17.5 g/dL [facility] Hct 39.6 38.9 - 50.3 % [facility] Plt 380 150 - 400 K/cumm [facility] MPV 9.6 9.1 - 12.3 fL [facility] RBC 4.39 4.30 - 5.80 M/cumm [facility] MCV 90.2 81.3 - 96.4 fL [facility] MCH 30.3 27.1 - 33.3 pg [facility] MCHC 33.6 32.3 - 35.7 g/dL [facility] RDW CV 12.1 11.1 - 14.9 % [facility] RDW SD 40.0 35.7 - 48.1 fL [facility] NRBC abs 0.00 0.00 - 0.01 K/cumm [facility] Blood (Blood, Venous) 06/20/2024 9:16 AM DIRECTOR OF EMPLOYER SERVICES 06/20/2024 9:46 AM DIRECTOR OF EMPLOYER SERVICES us Jyotsna Moralez MD LAB BLOOD ORDERABLES Final Result [facility] Department [place] [address] * Ethanol (06/20/2024 9:16 AM DIRECTOR OF EMPLOYER SERVICES) Pathologist [facility] Ethanol <10 <=10 mg/dL Comment: Interpretive Data Legal limit of intoxication > or = 80 mg/dL Levels > or = 400 mg/dL are potentially TOXIC. Current interpretive data was last revised on 2018. Blood 06/20/2024 9:16 AM DIRECTOR OF EMPLOYER SERVICES 06/20/2024 9:46 AM DIRECTOR OF EMPLOYER SERVICES us Jyotsna Moralez MD LAB BLOOD ORDERABLES Final Result [facility] Department [place] [address] * (ABNORMAL) Valproic acid level, total (06/20/2024 9:16 AM DIRECTOR OF EMPLOYER SERVICES) Valproic Acid <15.0(L) 50.0 - 100.0 mcg/mL Comment: Interpretive Data Therapeutic or toxic effects of anticonvulsant drugs may occur at different concentrations in different patients and the correlation between dose and clinical effect must be evaluated individually. Current interpretative data was last revised on 13. Blood 06/20/2024 9:16 AM DIRECTOR OF EMPLOYER SERVICES 06/20/2024 9:54 AM DIRECTOR OF EMPLOYER SERVICES us Jyotsna Moralez MD LAB BLOOD ORDERABLES Final Result [facility] Department [place] [address] * (ABNORMAL) Comprehensive metabolic panel (06/20/2024 9:16 AM DIRECTOR OF EMPLOYER SERVICES) Pathologist [facility] Sodium 139 135 - 145 mmol/L Potassium, pl 4.4 3.3 - 4.9 mmol/L [facility] Chloride 101 97 - 110 mmol/L [facility] CO2 29 22 - 32 mmol/L [facility] Anion gap 9 2 - 15 mmol/L [facility] BUN 10 6 - 25 mg/dL [facility] Creatinine 0.67(L) 0.80 - 1.30 mg/dL [facility] Glucose 88 70 - 199 mg/dL [facility] Comment: Interpretive Data Fasting glucose >/= 126 mg/dl is diagnostic for diabetes. ?? Fasting is defined as no caloric intake for at least 8 hours. Fasting glucose between 100 mg/dl to 125 mg/dl is diagnostic of prediabetes. In a patient with classic symptoms of hyperglycemia or hyperglycemic crisis, a random glucose >/= 200 mg/dl is diagnostic for diabetes. In the absence of unequivocal hyperglycemia, results should be confirmed by repeat testing. The classification and Diagnosis of Diabetes Diabetes Care 202; 46: S19-S40. Current interpretive data was last revised 2022. Calcium 10.2 8.5 - 10.3 mg/dL [facility] Bilirubin, total 0.5 0.1 - 1.2 mg/dL [facility] Protein, pl 7.6 6.5 - 8.5 g/dL [facility] Albumin 4.7 3.5 - 5.0 g/dL [facility] Alk phos 84 40 - 130 Units/L [facility] ALT 28 7 - 55 Units/L [facility] AST 38 10 - 50 Units/L [facility] Blood 06/20/2024 9:16 AM DIRECTOR OF EMPLOYER SERVICES 06/20/2024 9:46 AM DIRECTOR OF EMPLOYER SERVICES us Jyotsna Moralez MD LAB BLOOD ORDERABLES Final Result [facility] Department [place] [address] * POCT Rapid HIV Antibody Community Screening-[facility] Eligible (05/29/2024 4:17 AM DIRECTOR OF EMPLOYER SERVICES) [facility] Rapid HIV, POC Negative Negative QC Control Line Acceptable Blood 05/29/2024 4:17 AM DIRECTOR OF EMPLOYER SERVICES us Montrell Mir MD POINT OF CARE TEST ORDERAB LES Final Result * XR Hand Left 3+ views (05/29/2024 3:38 AM DIRECTOR OF EMPLOYER SERVICES) Anatomical Region Laterality Modality Upper Extremities, Hand Left Computed Radiography 05/29/2024 3:41 AM DIRECTOR OF EMPLOYER SERVICES Impressions 05/29/2024 7:26 AM DIRECTOR OF EMPLOYER SERVICES The current study is compared with the prior radiograph dated 05/12/2024. 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 ??There is mild soft tissue swelling of the stump site. ??No osseous erosions of the left hand. ??No acute fracture of the right hand. ??No retained radiodense foreign bodies. Joint spaces are preserved. ??Alignment is normal. Dictated by: Gibson Comer MD The radiology attending physician has personally reviewed this study, and had reviewed and/or edited this written report and agrees with it. Electronically signed by: Junior Caldwlel M.D. Narrative 05/29/2024 7:26 AM DIRECTOR OF EMPLOYER SERVICES EXAMINATION: XR HAND LEFT 3 OR MORE VIEWS HISTORY: ??Pain at amputation site Procedure Note Junior Caldwell MD - 05/29/2024 EXAMINATION: XR HAND LEFT 3 OR MORE VIEWS HISTORY: Pain at amputation site IMPRESSION: The current study is compared with the prior radiograph dated 05/12/2024. 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 There is mild soft tissue swelling of the stump site. No osseous erosions of the left hand. No acute fracture of the right hand. No retained radiodense foreign bodies. Joint spaces are preserved. Alignment is normal. Dictated by: Gibson Comer MD The radiology attending physician has personally reviewed this study, and had reviewed and/or edited this written report and agrees with it. Electronically signed by: Junior Caldwell M.D. us Henry Hooks MD IMG XR PROCEDURES Fin al Result * Critical Care (05/26/2024 5:15 PM DIRECTOR OF EMPLOYER SERVICES) Narrative Ethan Dewitt MD - 05/26/2024 5:15 PM DIRECTOR OF EMPLOYER SERVICES Ethan Dewitt MD ? 05/26/2024 ??5:17 PM Critical Care Performed by: Ethan Dewitt MD Authorized by: Ethan Dewitt MD ?? Critical care provider statement: As reflected in the history, physical exam, orders, notes, and/or MDM, I was personally present while the patient was critically ill and provided critical care services for 20 minutes, excluding time involved in separately billable procedures. ??Critical care was necessary to treat or prevent imminent or life-threatening deterioration of the following condition(s): ?? acute ingestion ?? acute psychotic episode ??Critical care was time spent by me providing the following: ? serial bedside patient exams ?? sedatives and psychotropic medications and psychological evaluation with medical clearance ?? I provided emergent necessary critical care medicine services to this patient. I ordered and reviewed test results and/or imaging studies. I spent time discussing the management of this critically ill patient with consultants and the medical staff. I spent time documenting in the medical record. I spent time discussing the management and therapeutic options for this critically ill patient with the patient themselves or with the appropriate designated surrogate decision-maker. us Ethan Dewitt MD IN CLINIC/BEDSIDE ORDERABL ES Final Result * (ABNORMAL) Urinalysis reflex to microscopic and culture Urine (05/25/2024 10:06 PM DIRECTOR OF EMPLOYER SERVICES) Color, ur Yellow Yellow Clarity, ur Clear Clear [facility] Specific gravity, ur 1.036(H) 1.003 - 1.030 [facility] pH, urine 6.5 [facility] Comment: Interpretive Data ? Urine pH is affected by diet, medications, systemic acid-base disturbances, and renal tubular function. ??pH may affect urinary stone formation. ??For example, urine pH below 6.0 may help reduce the tendency for calcium phosphate stones and pH greater than 6.0 may reduce the tendency for uric acid stone formation. Source: [facility] [employer] Current Interpretive Data was last revised on 2017 Protein, ur ql 1+(A) Negative [facility] Glucose, ur ql Negative Negative [facility] Ketones, ur Trace Negative [facility] Bilirubin, ur Negative Negative [facility] Blood, ur Negative Negative [facility] Urobilinogen, ur <2.0 <2.0 mg/dL [facility] Nitrite, ur Negative Negative [facility] Leukocyte esterase, ur Negative Negative [facility] UA reflex comment Reflex to microscopic UA will be performed. [facility] Urine 05/25/2024 10:0 6 PM DIRECTOR OF EMPLOYER SERVICES 05/25/2024 10:08 PM DIRECTOR OF EMPLOYER SERVICES us Maria Guadalupe Hein NP LAB MICROBIOLOGY - GENERAL ORDERABLES Final Result [facility] Department [place] [address] * (ABNORMAL) Drugs of Abuse Screen, Urine without Confirmation (05/25/2024 10:06 PM DIRECTOR OF EMPLOYER SERVICES) [facility] Amphetamine, ur Not Detected CutOff 500ng/mL Comment: Interpretive Data - Amphetamines: ??Samples containing greater than 500 ng/mL d-methamphetamine ??or other cross-reacting amphetamine compounds are reported as positive. ??Amphetamine immunoassays are subject to significant false positive rates due to cross-reactivity of non-amphetamine drugs. Confirmatory testing required for definitive results. Current Interpretive Data was last reviewed 2023. Barbiturates, ur Not Detected CutOff 200ng/mL [facility] Comment: Interpretive Data - Barbiturates: ??Samples containing greater than 200 ng/mL secobarbital or other cross-reacting barbiturate compounds are reported as positive. ??False positive and false negative results are possible. Confirmatory testing required for definitive results. Current Interpretive Data was last reviewed 2023. Benzodiazepines, ur Not Detected CutOff 100ng/mL [facility] Comment: Interpretive Data - Benzodiazepines: ??Samples containing greater than 100 ng/mL nordiazepam or other cross-reacting compounds are reported as positive. False positive and false negative results are possible. Confirmatory testing required for definitive results. Current Interpretive Data was last reviewed 2023. Cannabinoids, ur Screen Positive, presumptive (A) CutOff 50 ng/mL [facility] Comment: Interpretive Data - Cannabinoids: ??Samples containing greater than 50 ng/mL delta-9 THC -COOH or other cross-reacting compounds are reported as positive. ??False positive and false negative results are possible. ??Confirmatory testing required for definitive results. Current Interpretive Data was last reviewed 2023. Cocaine, ur Not Detected CutOff 150ng/mL [facility] Comment: Interpretive Data - Cocaine: ??Samples containing greater than 150 ng/mL benzoylecgonine or other cross-reacting compounds are reported as positive. False positive and false negative results are possible. Confirmatory testing required for definitive results. Current Interpretive Data was last reviewed 2023. Fentanyl, Ur Not Detected CutOff 5 ng/mL [facility] Comment: Interpretive Data - Fentanyl: ?? Samples containing greater than 5 ng/mL norfentanyl, fentanyl, or other cross-reacting fentanyl compounds are reported as positive. False positive and false negative results are possible. Confirmatory testing required for definitive results. Current Interpretive Data was last reviewed 2023. Methadone, ur Not Detected CutOff 300ng/mL [facility] Comment: Interpretive Data - Methadone: ??Samples containing greater than 300 ng/mL d,l-methadone or other cross-reacting compounds are reported as positive. ??False positive and false negative results are possible. Confirmatory testing required for definitive results. Current Interpretive Data was last reviewed 2023. Opiates, ur Not Detected CutOff 300ng/mL [facility] Comment: Interpretive Data - Opiates: ??Samples containing greater than 300 ng/mL morphine or other cross-reacting compounds are reported as positive. ??False positive and false negative results are possible. Confirmatory testing required for definitive results. Current Interpretive Data was last reviewed 2023. Oxycodone, ur Not Detected CutOff 100ng/mL [facility] Comment: Interpretive Data - Oxycodone: ??Samples containing greater than 100 ng/mL oxycodone or other cross-reacting compounds are reported as ??positive. ??False positive and false negative results are possible. Confirmatory testing required for definitive results. Current Interpretive Data was last reviewed 2023. Phencyclidine, ur Not Detected CutOff 25 ng/mL [facility] Comment: Interpretive Data - Phencyclidine: ??Samples containing greater than 25 ng/mL phencyclidine or other cross-reacting compounds are reported as positive. ??False positive and false negative results are possible. Confirmatory testing required for definitive results. Current Interpretive Data was last reviewed 2023. Urine Creatinine 296 mg/dL [facility] Comment: Interpretive Data Urine Creatinine: < 10 mg/dL is extremely dilute = or > 10 but < 20 mg/dL is dilute = or > 20 mg/dL is normal Current Interpretive Data was last revised on 2017. Urine 05/25/2024 10:0 6 PM DIRECTOR OF EMPLOYER SERVICES 05/25/2024 10:16 PM DIRECTOR OF EMPLOYER SERVICES Narrative [facility] - 05/25/2024 10:49 PM DIRECTOR OF EMPLOYER SERVICES Drug of Abuse screening is performed by immunoassay for medical purposes only. ??This is not to be used for Pain Management purposes. Maria Guadalupe Josefa Melvina REGULATORY SPECIALIST LAB URINE ORDERABLES Final Result Performing Organization Address [facility] de Phone Number [facility] [place] [address] * (ABNORMAL) Urinalysis, microscopic only (05/25/2024 10:06 PM DIRECTOR OF EMPLOYER SERVICES) WBC, ur 0-5 0 - 5 /HPF RBC, ur 0-2 0 - 2 /HPF [facility] Bacteria, ur Trace(A) [facility] Mucous, ur Present(A) [facility] Culture Reflex Comment Reflex conditions for urine culture (WBC >10) not met. [facility] Urine 05/25/2024 10:0 6 PM DIRECTOR OF EMPLOYER SERVICES 05/25/2024 10:08 PM DIRECTOR OF EMPLOYER SERVICES Maria Guadalupe Hein REGULATORY SPECIALIST LAB URINE ORDERABLES Final Result Performing Organization Address [facility] de Phone Number [facility] Department [place] [address] * eGFR (05/25/2024 5:37 PM DIRECTOR OF EMPLOYER SERVICES) eGFR >90 >=60 mL/min/1. 73 m2 Comment: Interpretive Data Reference Interval Normal ?>/= 90 mL/min/1.73m2 Mildly decreased* ? 60 - 89 mL/min/1.73m2 Mildly to moderately decreased ?45 - 59 mL/min/1.73m2 Moderately to severely decreased ??30 - 44 mL/min/1.73m2 Severely decreased ?15 - 29 mL/min/1.73m2 Kidney Failure ?< 15 ??mL/min/1.73m2 *Relative to young adult level Estimated glomerular filtration rate is determined by the 2020 CKD-EPI equation recommended by the National Kidney Foundation (A Unifying Approach to GFR Estimation: Recommendations of the NKF-ASK Task Force on Reassessing the Inclusion of Race in Diagnosing Kidney Disease, JASN 202). The CKD-EPI equation should not be used for patients with unstable renal function and has not been validated in children and those over 70. Current interpretive data was last reviewed 2021. Blood 05/25/2024 5:37 PM DIRECTOR OF EMPLOYER SERVICES 05/25/2024 6:06 PM DIRECTOR OF EMPLOYER SERVICES Maria Guadalupe Hein NP LAB BLOOD ORDERABLES Final Result [facility] Department [place] [address] * (ABNORMAL) Differential, auto (05/25/2024 5:37 PM DIRECTOR OF EMPLOYER SERVICES) Neutrophil abs 7.9(H) 1.5 - 6.5 K/cumm Imm gran abs 0.0 0.0 - 0.1 K/cumm [facility] Lymphocyte abs 3.6(H) 0.8 - 3.3 K/cumm [facility] Monocyte abs 1.4(H) 0.2 - 0.8 K/cumm [facility] Eosinophil abs 0.1 0.0 - 0.5 K/cumm [facility] Basophil abs 0.1 0.0 - 0.1 K/cumm [facility] Neutrophil pct 60.3 % [facility] Comment: Interpretive Data Percent cell count reference ranges are not reported, since discordance with absolute values may lead to misinterpretation of CBC data. Current Interpretive Data was last revised on 2017. Imm gran pct 0.3 % [facility] Comment: Interpretive Data Percent cell count reference ranges are not reported, since discordance with absolute values may lead to misinterpretation of CBC data. Current Interpretive Data was last revised on 2017. Lymphocyte pct 27.6 % [facility] Comment: Interpretive Data Percent cell count reference ranges are not reported, since discordance with absolute values may lead to misinterpretation of CBC data. Current Interpretive Data was last revised on 2017. Monocyte pct 10.6 % [facility] Comment: Interpretive Data Percent cell count reference ranges are not reported, since discordance with absolute values may lead to misinterpretation of CBC data. Current Interpretive Data was last revised on 2017. Eosinophil pct 0.5 % [facility] Comment: Interpretive Data Percent cell count reference ranges are not reported, since discordance with absolute values may lead to misinterpretation of CBC data. Current Interpretive Data was last revised on 2017. Basophil pct 0.7 % [facility] Comment: Interpretive Data Percent cell count reference ranges are not reported, since discordance with absolute values may lead to misinterpretation of CBC data. Current Interpretive Data was last revised on 2017. Blood 05/25/2024 5:37 PM DIRECTOR OF EMPLOYER SERVICES 05/25/2024 6:06 PM DIRECTOR OF EMPLOYER SERVICES Maria Guadalupe Hein REGULATORY SPECIALIST LAB BLOOD ORDERABLES Final Result Performing Organization Address [facility] de Phone Number [facility] Department [place] [address] * Thyroid Function Pratt (05/25/2024 5:37 PM DIRECTOR OF EMPLOYER SERVICES) [facility] TSH 0.67 0.30 - 4.20 mcIUnit/mL Blood 05/25/2024 5:37 PM DIRECTOR OF EMPLOYER SERVICES 05/25/2024 6:06 PM DIRECTOR OF EMPLOYER SERVICES Maria Guadalupe Hein REGULATORY SPECIALIST LAB BLOOD ORDERABLES Final Result Performing Organization Address [facility] de Phone Number [facility] Department [place] [address] * (ABNORMAL) CBC with auto differential (05/25/2024 5:37 PM DIRECTOR OF EMPLOYER SERVICES) Pathologist [facility] WBC 13.1(H) 3.8 - 9.9 K/cumm Hgb 12.2(L) 13.0 - 17.5 g/dL [facility] Hct 35.2(L) 38.9 - 50.3 % [facility] Plt 413(H) 150 - 400 K/cumm [facility] MPV 10.1 9.1 - 12.3 fL [facility] RBC 4.07(L) 4.30 - 5.80 M/cumm [facility] MCV 86.5 81.3 - 96.4 fL [facility] MCH 30.0 27.1 - 33.3 pg [facility] MCHC 34.7 32.3 - 35.7 g/dL [facility] RDW CV 12.2 11.1 - 14.9 % [facility] RDW SD 38.2 35.7 - 48.1 fL [facility] NRBC abs 0.00 0.00 - 0.01 K/cumm [facility] Blood 05/25/2024 5:37 PM DIRECTOR OF EMPLOYER SERVICES 05/25/2024 6:06 PM DIRECTOR OF EMPLOYER SERVICES Maria Guadalupe Hein REGULATORY SPECIALIST LAB BLOOD ORDERABLES Final Result Performing Organization Address [facility] de Phone Number [facility] Department [place] [address] * Ethanol (05/25/2024 5:37 PM DIRECTOR OF EMPLOYER SERVICES) Ethanol <10 <=10 mg/dL Comment: Interpretive Data Legal limit of intoxication > or = 80 mg/dL Levels > or = 400 mg/dL are potentially TOXIC. Current interpretive data was last revised on 2018. Blood 05/25/2024 5:37 PM DIRECTOR OF EMPLOYER SERVICES 05/25/2024 6:06 PM DIRECTOR OF EMPLOYER SERVICES Maria Guadalupe Hein REGULATORY SPECIALIST LAB BLOOD ORDERABLES Final Result Performing Organization Address [facility]/[employer] de Phone Number [facility] [place] [address] * (ABNORMAL) Valproic acid level, total (05/25/2024 5:37 PM DIRECTOR OF EMPLOYER SERVICES) Valproic Acid <15.0(L) 50.0 - 100.0 mcg/mL Comment: Interpretive Data Therapeutic or toxic effects of anticonvulsant drugs may occur at different concentrations in different patients and the correlation between dose and clinical effect must be evaluated individually. Current interpretative data was last revised on 13. Blood 05/25/2024 5:37 PM DIRECTOR OF EMPLOYER SERVICES 05/25/2024 6:06 PM DIRECTOR OF EMPLOYER SERVICES Maria Guadalupe Hein REGULATORY SPECIALIST LAB BLOOD ORDERABLES Final Result Performing Organization Address [facility] de Phone Number [facility] Department [place] [address] * (ABNORMAL) Carbamazepine level, total (05/25/2024 5:37 PM DIRECTOR OF EMPLOYER SERVICES) Pathologist [facility] Carbamazepine <3.0(L) 4.0 - 12.0 mcg/mL Comment: Interpretive Data Therapeutic or Toxic effect of anticonvulsant drugs may occur at different concentrations in different patients and the correlation between dose and clinical effect must be evaluated individually. Current interpretive data was last revised on 13. Blood 05/25/2024 5:37 PM DIRECTOR OF EMPLOYER SERVICES 05/25/2024 6:06 PM DIRECTOR OF EMPLOYER SERVICES Maria Guadalupe Hein REGULATORY SPECIALIST LAB BLOOD ORDERABLES Final Result Performing Organization Address [facility] Phone Number [facility] [place] [address] * Basic metabolic panel (05/25/2024 5:37 PM DIRECTOR OF EMPLOYER SERVICES) Sodium 136 135 - 145 mmol/L Potassium, pl 3.8 3.3 - 4.9 mmol/L [facility] Chloride 100 97 - 110 mmol/L [facility] CO2 25 22 - 32 mmol/L [facility] Anion gap 11 2 - 15 mmol/L [facility] BUN 20 6 - 25 mg/dL [facility] Creatinine 0.82 0.80 - 1.30 mg/dL [facility] Glucose 119 70 - 199 mg/dL [facility] Comment: Interpretive Data Fasting glucose >/= 126 mg/dl is diagnostic for diabetes. ?? Fasting is defined as no caloric intake for at least 8 hours. Fasting glucose between 100 mg/dl to 125 mg/dl is diagnostic of prediabetes. In a patient with classic symptoms of hyperglycemia or hyperglycemic crisis, a random glucose >/= 200 mg/dl is diagnostic for diabetes. In the absence of unequivocal hyperglycemia, results should be confirmed by repeat testing. The classification and Diagnosis of Diabetes Diabetes Care 2021; 46: S19-S40. Current interpretive data was last revised 2022. Calcium 9.8 8.5 - 10.3 mg/dL [facility] Blood 05/25/2024 5:37 PM DIRECTOR OF EMPLOYER SERVICES 05/25/2024 6:06 PM DIRECTOR OF EMPLOYER SERVICES us Maria Guadalupe Hein NP LAB BLOOD ORDERABLES Final Result [facility] Department [place] [address] * (ABNORMAL) Drugs of Abuse Screen, Urine with Reflex Confirmation (05/19/2024 9:28 AM DIRECTOR OF EMPLOYER SERVICES) Pathologist [facility] Amphetamine, ur Not Detected CutOff 500ng/mL Comment: Interpretive Data - Amphetamines: ??Samples containing greater than 500 ng/mL d-methamphetamine ??or other cross-reacting amphetamine compounds are reported as positive. ??Amphetamine immunoassays are subject to significant false positive rates due to cross-reactivity of non-amphetamine drugs. Confirmatory testing required for definitive results. Current Interpretive Data was last reviewed 2023. Barbiturates, ur Not Detected CutOff 200ng/mL [facility] Comment: Interpretive Data - Barbiturates: ??Samples containing greater than 200 ng/mL secobarbital or other cross-reacting barbiturate compounds are reported as positive. ??False positive and false negative results are possible. Confirmatory testing required for definitive results. Current Interpretive Data was last reviewed 2023. Benzodiazepines, ur Not Detected CutOff 100ng/mL [facility] Comment: Interpretive Data - Benzodiazepines: ??Samples containing greater than 100 ng/mL nordiazepam or other cross-reacting compounds are reported as positive. False positive and false negative results are possible. Confirmatory testing required for definitive results. Current Interpretive Data was last reviewed 2023. Cannabinoids, ur Screen Positive, presumptive (A) CutOff 50 ng/mL [facility] Comment: Interpretive Data - Cannabinoids: ??Samples containing greater than 50 ng/mL delta-9 THC -COOH or other cross-reacting compounds are reported as positive. ??False positive and false negative results are possible. ??Confirmatory testing required for definitive results. Current Interpretive Data was last reviewed 2023. Cocaine, ur Not Detected CutOff 150ng/mL [facility] Comment: Interpretive Data - Cocaine: ??Samples containing greater than 150 ng/mL benzoylecgonine or other cross-reacting compounds are reported as positive. False positive and false negative results are possible. Confirmatory testing required for definitive results. Current Interpretive Data was last reviewed 2023. Fentanyl, Ur Not Detected CutOff 5 ng/mL [facility] Comment: Interpretive Data - Fentanyl: ?? Samples containing greater than 5 ng/mL norfentanyl, fentanyl, or other cross-reacting fentanyl compounds are reported as positive. False positive and false negative results are possible. Confirmatory testing required for definitive results. Current Interpretive Data was last reviewed 2023. Methadone, ur Not Detected CutOff 300ng/mL [facility] Comment: Interpretive Data - Methadone: ??Samples containing greater than 300 ng/mL d,l-methadone or other cross-reacting compounds are reported as positive. ??False positive and false negative results are possible. Confirmatory testing required for definitive results. Current Interpretive Data was last reviewed 2023. Opiates, ur Not Detected CutOff 300ng/mL [facility] Comment: Interpretive Data - Opiates: ??Samples containing greater than 300 ng/mL morphine or other cross-reacting compounds are reported as positive. ??False positive and false negative results are possible. Confirmatory testing required for definitive results. Current Interpretive Data was last reviewed 2023. Oxycodone, ur Not Detected CutOff 100ng/mL [facility] Comment: Interpretive Data - Oxycodone: ??Samples containing greater than 100 ng/mL oxycodone or other cross-reacting compounds are reported as ??positive. ??False positive and false negative results are possible. Confirmatory testing required for definitive results. Current Interpretive Data was last reviewed 2023. Phencyclidine, ur Not Detected CutOff 25 ng/mL [facility] Comment: Interpretive Data - Phencyclidine: ??Samples containing greater than 25 ng/mL phencyclidine or other cross-reacting compounds are reported as positive. ??False positive and false negative results are possible. Confirmatory testing required for definitive results. Current Interpretive Data was last reviewed 2023. Urine Creatinine 75 mg/dL [facility] Comment: Interpretive Data Urine Creatinine: < 10 mg/dL is extremely dilute = or > 10 but < 20 mg/dL is dilute = or > 20 mg/dL is normal Current Interpretive Data was last revised on 2017. Urine 05/19/2024 9:28 AM DIRECTOR OF EMPLOYER SERVICES 05/19/2024 10:13 AM DIRECTOR OF EMPLOYER SERVICES Narrative [facility] - 05/19/2024 10:44 AM DIRECTOR OF EMPLOYER SERVICES Drug of Abuse screening is performed by immunoassay for medical purposes only. ??This is not to be used for Pain Management purposes. ??If Detected, confirmation testing will be performed for Amphetamines, Cocaine, Fentanyl, Methadone, Opiates, Oxycodone or Phencyclidine. us Radha Saleh MD LAB URINE ORDERABLES Final Resu lt [facility] Department [place] [address] * eGFR (05/19/2024 4:58 AM DIRECTOR OF EMPLOYER SERVICES) eGFR >90 >=60 mL/min/1. 73 m2 Comment: Interpretive Data Reference Interval Normal ?>/= 90 mL/min/1.73m2 Mildly decreased* ? 60 - 89 mL/min/1.73m2 Mildly to moderately decreased ?45 - 59 mL/min/1.73m2 Moderately to severely decreased ??30 - 44 mL/min/1.73m2 Severely decreased ?15 - 29 mL/min/1.73m2 Kidney Failure ?< 15 ??mL/min/1.73m2 *Relative to young adult level Estimated glomerular filtration rate is determined by the 2020 CKD-EPI equation recommended by the National Kidney Foundation (A Unifying Approach to GFR Estimation: Recommendations of the NKF-ASK Task Force on Reassessing the Inclusion of Race in Diagnosing Kidney Disease, JASN 2020). The CKD-EPI equation should not be used for patients with unstable renal function and has not been validated in children and those over 70. Current interpretive data was last reviewed 2021. Blood 05/19/2024 4:58 AM DIRECTOR OF EMPLOYER SERVICES 05/19/2024 6:25 AM DIRECTOR OF EMPLOYER SERVICES us Denise Gonzalez MD PhD LAB BLOOD ORDERABLES Final Result [facility] Department [place] [address] * Differential, auto (05/19/2024 4:58 AM DIRECTOR OF EMPLOYER SERVICES) Neutrophil abs 4.7 1.5 - 6.5 K/cumm Imm gran abs 0.0 0.0 - 0.1 K/cumm [facility] Lymphocyte abs 3.0 0.8 - 3.3 K/cumm [facility] Monocyte abs 0.7 0.2 - 0.8 K/cumm [facility] Eosinophil abs 0.3 0.0 - 0.5 K/cumm [facility] Basophil abs 0.1 0.0 - 0.1 K/cumm [facility] Neutrophil pct 53.4 % [facility] Comment: Interpretive Data Percent cell count reference ranges are not reported, since discordance with absolute values may lead to misinterpretation of CBC data. Current Interpretive Data was last revised on 2017. Imm gran pct 0.3 % [facility] Comment: Interpretive Data Percent cell count reference ranges are not reported, since discordance with absolute values may lead to misinterpretation of CBC data. Current Interpretive Data was last revised on 2017. Lymphocyte pct 33.7 % [facility] Comment: Interpretive Data Percent cell count reference ranges are not reported, since discordance with absolute values may lead to misinterpretation of CBC data. Current Interpretive Data was last revised on 2017. Monocyte pct 8.0 % [facility] Comment: Interpretive Data Percent cell count reference ranges are not reported, since discordance with absolute values may lead to misinterpretation of CBC data. Current Interpretive Data was last revised on 2017. Eosinophil pct 3.4 % [facility] Comment: Interpretive Data Percent cell count reference ranges are not reported, since discordance with absolute values may lead to misinterpretation of CBC data. Current Interpretive Data was last revised on 2017. Basophil pct 1.2 % [facility] Comment: Interpretive Data Percent cell count reference ranges are not reported, since discordance with absolute values may lead to misinterpretation of CBC data. Current Interpretive Data was last revised on 2017. Blood 05/19/2024 4:58 AM DIRECTOR OF EMPLOYER SERVICES 05/19/2024 6:25 AM DIRECTOR OF EMPLOYER SERVICES us Denise Gonzalez MD PhD LAB BLOOD ORDERABLES Final Result [facility] Department [place] [address] * (ABNORMAL) CBC with auto differential (05/19/2024 4:58 AM DIRECTOR OF EMPLOYER SERVICES) WBC 8.9 3.8 - 9.9 K/cumm Hgb 11.8(L) 13.0 - 17.5 g/dL [facility] Hct 35.3(L) 38.9 - 50.3 % [facility] Plt 348 150 - 400 K/cumm [facility] MPV 10.2 9.1 - 12.3 fL [facility] RBC 3.86(L) 4.30 - 5.80 M/cumm [facility] MCV 91.5 81.3 - 96.4 fL [facility] MCH 30.6 27.1 - 33.3 pg [facility] MCHC 33.4 32.3 - 35.7 g/dL [facility] RDW CV 12.2 11.1 - 14.9 % [facility] RDW SD 40.7 35.7 - 48.1 fL [facility] NRBC abs 0.00 0.00 - 0.01 K/cumm [facility] Blood 05/19/2024 4:58 AM DIRECTOR OF EMPLOYER SERVICES 05/19/2024 6:25 AM DIRECTOR OF EMPLOYER SERVICES us Denise Gonzalez MD PhD LAB BLOOD ORDERABLES Final Result [facility] Department [place] [address] * (ABNORMAL) Comprehensive metabolic panel (05/19/2024 4:58 AM DIRECTOR OF EMPLOYER SERVICES) Sodium 140 135 - 145 mmol/L Potassium, pl 5.6(H) 3.3 - 4.9 mmol/L [facility] Chloride 102 97 - 110 mmol/L [facility] CO2 27 22 - 32 mmol/L [facility] Anion gap 11 2 - 15 mmol/L [facility] BUN 25 6 - 25 mg/dL [facility] Creatinine 0.93 0.80 - 1.30 mg/dL [facility] Glucose 107 70 - 199 mg/dL [facility] Comment: Interpretive Data Fasting glucose >/= 126 mg/dl is diagnostic for diabetes. ?? Fasting is defined as no caloric intake for at least 8 hours. Fasting glucose between 100 mg/dl to 125 mg/dl is diagnostic of prediabetes. In a patient with classic symptoms of hyperglycemia or hyperglycemic crisis, a random glucose >/= 200 mg/dl is diagnostic for diabetes. In the absence of unequivocal hyperglycemia, results should be confirmed by repeat testing. The classification and Diagnosis of Diabetes Diabetes Care 202; 46: S19-S40. Current interpretive data was last revised 2022. Calcium 10.0 8.5 - 10.3 mg/dL [facility] Bilirubin, total <0.2 0.1 - 1.2 mg/dL [facility] Protein, pl 7.3 6.5 - 8.5 g/dL [facility] Albumin 4.4 3.5 - 5.0 g/dL [facility] Alk phos 63 40 - 130 Units/L [facility] ALT 71(H) 7 - 55 Units/L [facility] AST 54(H) 10 - 50 Units/L [facility] Blood 05/19/2024 4:58 AM DIRECTOR OF EMPLOYER SERVICES 05/19/2024 6:25 AM DIRECTOR OF EMPLOYER SERVICES us Denise Gonzalez MD PhD LAB BLOOD ORDERABLES Final Result [facility] Department [place] [address] * eGFR (05/18/2024 4:54 AM DIRECTOR OF EMPLOYER SERVICES) eGFR >90 >=60 mL/min/1. 73 m2 Comment: Interpretive Data Reference Interval Normal ?>/= 90 mL/min/1.73m2 Mildly decreased* ? 60 - 89 mL/min/1.73m2 Mildly to moderately decreased ?45 - 59 mL/min/1.73m2 Moderately to severely decreased ??30 - 44 mL/min/1.73m2 Severely decreased ?15 - 29 mL/min/1.73m2 Kidney Failure ?< 15 ??mL/min/1.73m2 *Relative to young adult level Estimated glomerular filtration rate is determined by the 2020 CKD-EPI equation recommended by the National Kidney Foundation (A Unifying Approach to GFR Estimation: Recommendations of the NKF-ASK Task Force on Reassessing the Inclusion of Race in Diagnosing Kidney Disease, JASN 2020). The CKD-EPI equation should not be used for patients with unstable renal function and has not been validated in children and those over 70. Current interpretive data was last reviewed 2021. Blood 05/18/2024 4:54 AM DIRECTOR OF EMPLOYER SERVICES 05/18/2024 5:45 AM DIRECTOR OF EMPLOYER SERVICES us Denise Gonzalez MD PhD LAB BLOOD ORDERABLES Final Result [facility] Department [place] [address] * (ABNORMAL) Differential, auto (05/18/2024 4:54 AM DIRECTOR OF EMPLOYER SERVICES) Neutrophil abs 2.5 1.5 - 6.5 K/cumm Imm gran abs 0.0 0.0 - 0.1 K/cumm [facility] Lymphocyte abs 3.6(H) 0.8 - 3.3 K/cumm [facility] Monocyte abs 0.5 0.2 - 0.8 K/cumm [facility] Eosinophil abs 0.3 0.0 - 0.5 K/cumm [facility] Basophil abs 0.1 0.0 - 0.1 K/cumm [facility] Neutrophil pct 36.3 % [facility] Comment: Interpretive Data Percent cell count reference ranges are not reported, since discordance with absolute values may lead to misinterpretation of CBC data. Current Interpretive Data was last revised on 2017. Imm gran pct 0.1 % [facility] Comment: Interpretive Data Percent cell count reference ranges are not reported, since discordance with absolute values may lead to misinterpretation of CBC data. Current Interpretive Data was last revised on 2017. Lymphocyte pct 51.6 % [facility] Comment: Interpretive Data Percent cell count reference ranges are not reported, since discordance with absolute values may lead to misinterpretation of CBC data. Current Interpretive Data was last revised on 2017. Monocyte pct 7.3 % [facility] Comment: Interpretive Data Percent cell count reference ranges are not reported, since discordance with absolute values may lead to misinterpretation of CBC data. Current Interpretive Data was last revised on 2017. Eosinophil pct 3.6 % [facility] Comment: Interpretive Data Percent cell count reference ranges are not reported, since discordance with absolute values may lead to misinterpretation of CBC data. Current Interpretive Data was last revised on 2017. Basophil pct 1.1 % [facility] Comment: Interpretive Data Percent cell count reference ranges are not reported, since discordance with absolute values may lead to misinterpretation of CBC data. Current Interpretive Data was last revised on 2017. Blood 05/18/2024 4:54 AM DIRECTOR OF EMPLOYER SERVICES 05/18/2024 5:49 AM DIRECTOR OF EMPLOYER SERVICES Denise Gonzalez MD PhD LAB BLOOD ORDERABLES Final Result Performing Organization Address City/[facility]/ZIP Co de Phone Number [facility] Department [place] [address] * CBC with auto differential (05/18/2024 4:54 AM DIRECTOR OF EMPLOYER SERVICES) Pathologist [facility] WBC 7.0 3.8 - 9.9 K/cumm Hgb 13.5 13.0 - 17.5 g/dL [facility] Hct 40.9 38.9 - 50.3 % [facility] Plt 341 150 - 400 K/cumm [facility] MPV 9.9 9.1 - 12.3 fL [facility] RBC 4.48 4.30 - 5.80 M/cumm [facility] MCV 91.3 81.3 - 96.4 fL [facility] MCH 30.1 27.1 - 33.3 pg [facility] MCHC 33.0 32.3 - 35.7 g/dL [facility] RDW CV 12.0 11.1 - 14.9 % [facility] RDW SD 40.5 35.7 - 48.1 fL [facility] NRBC abs 0.00 0.00 - 0.01 K/cumm [facility] Blood 05/18/2024 4:54 AM DIRECTOR OF EMPLOYER SERVICES 05/18/2024 5:49 AM DIRECTOR OF EMPLOYER SERVICES Denise Gonzalez MD PhD LAB BLOOD ORDERABLES Final Result Performing Organization Address City/[facility]/ZIP Co de Phone Number [facility] Department [place] [address] * (ABNORMAL) Comprehensive metabolic panel (05/18/2024 4:54 AM DIRECTOR OF EMPLOYER SERVICES) Sodium 144 135 - 145 mmol/L Potassium, pl 4.9 3.3 - 4.9 mmol/L [facility] Chloride 104 97 - 110 mmol/L [facility] CO2 29 22 - 32 mmol/L [facility] Anion gap 11 2 - 15 mmol/L [facility] BUN 12 6 - 25 mg/dL [facility] Creatinine 0.84 0.80 - 1.30 mg/dL [facility] Glucose 95 70 - 199 mg/dL [facility] Comment: Interpretive Data Fasting glucose >/= 126 mg/dl is diagnostic for diabetes. ?? Fasting is defined as no caloric intake for at least 8 hours. Fasting glucose between 100 mg/dl to 125 mg/dl is diagnostic of prediabetes. In a patient with classic symptoms of hyperglycemia or hyperglycemic crisis, a random glucose >/= 200 mg/dl is diagnostic for diabetes. In the absence of unequivocal hyperglycemia, results should be confirmed by repeat testing. The classification and Diagnosis of Diabetes Diabetes Care 2021; 46: S19-S40. Current interpretive data was last revised 2022. Calcium 9.9 8.5 - 10.3 mg/dL [facility] Bilirubin, total <0.2 0.1 - 1.2 mg/dL [facility] Protein, pl 7.2 6.5 - 8.5 g/dL [facility] Albumin 4.3 3.5 - 5.0 g/dL [facility] Alk phos 57 40 - 130 Units/L [facility] ALT 61(H) 7 - 55 Units/L [facility] AST 59(H) 10 - 50 Units/L [facility] Blood 05/18/2024 4:54 AM DIRECTOR OF EMPLOYER SERVICES 05/18/2024 5:45 AM DIRECTOR OF EMPLOYER SERVICES us Denise Gonzalez MD PhD LAB BLOOD ORDERABLES Final Result [facility] Department [place] [address] * eGFR (05/17/2024 4:30 AM DIRECTOR OF EMPLOYER SERVICES) eGFR >90 >=60 mL/min/1. 73 m2 Comment: Interpretive Data Reference Interval Normal ?>/= 90 mL/min/1.73m2 Mildly decreased* ? 60 - 89 mL/min/1.73m2 Mildly to moderately decreased ?45 - 59 mL/min/1.73m2 Moderately to severely decreased ??30 - 44 mL/min/1.73m2 Severely decreased ?15 - 29 mL/min/1.73m2 Kidney Failure ?< 15 ??mL/min/1.73m2 *Relative to young adult level Estimated glomerular filtration rate is determined by the 2020 CKD-EPI equation recommended by the National Kidney Foundation (A Unifying Approach to GFR Estimation: Recommendations of the NKF-ASK Task Force on Reassessing the Inclusion of Race in Diagnosing Kidney Disease, JASN 2020). The CKD-EPI equation should not be used for patients with unstable renal function and has not been validated in children and those over 70. Current interpretive data was last reviewed 2021. Blood 05/17/2024 4:30 AM DIRECTOR OF EMPLOYER SERVICES 05/17/2024 5:30 AM DIRECTOR OF EMPLOYER SERVICES us Denise Gonzalez MD PhD LAB BLOOD ORDERABLES Final Result [facility] Department of Laboratories [place], [place] [id number] * Differential, auto (05/17/2024 4:30 AM DIRECTOR OF EMPLOYER SERVICES) Pathologist [facility] Neutrophil abs 2.8 1.5 - 6.5 K/cumm Imm gran abs 0.0 0.0 - 0.1 K/cumm [facility] Lymphocyte abs 2.2 0.8 - 3.3 K/cumm [facility] Monocyte abs 0.4 0.2 - 0.8 K/cumm [facility] Eosinophil abs 0.3 0.0 - 0.5 K/cumm [facility] Basophil abs 0.1 0.0 - 0.1 K/cumm [facility] Neutrophil pct 49.1 % [facility] Comment: Interpretive Data Percent cell count reference ranges are not reported, since discordance with absolute values may lead to misinterpretation of CBC data. Current Interpretive Data was last revised on 2017. Imm gran pct 0.2 % [facility] Comment: Interpretive Data Percent cell count reference ranges are not reported, since discordance with absolute values may lead to misinterpretation of CBC data. Current Interpretive Data was last revised on 2017. Lymphocyte pct 38.9 % [facility] Comment: Interpretive Data Percent cell count reference ranges are not reported, since discordance with absolute values may lead to misinterpretation of CBC data. Current Interpretive Data was last revised on 2017. Monocyte pct 6.2 % [facility] Comment: Interpretive Data Percent cell count reference ranges are not reported, since discordance with absolute values may lead to misinterpretation of CBC data. Current Interpretive Data was last revised on 2017. Eosinophil pct 4.5 % [facility] Comment: Interpretive Data Percent cell count reference ranges are not reported, since discordance with absolute values may lead to misinterpretation of CBC data. Current Interpretive Data was last revised on 2017. Basophil pct 1.1 % [facility] Comment: Interpretive Data Percent cell count reference ranges are not reported, since discordance with absolute values may lead to misinterpretation of CBC data. Current Interpretive Data was last revised on 2017. Blood 05/17/2024 4:30 AM DIRECTOR OF EMPLOYER SERVICES 05/17/2024 5:33 AM DIRECTOR OF EMPLOYER SERVICES us Denise Gonzalez MD PhD LAB BLOOD ORDERABLES Final Result [facility] Department [place] [address] * (ABNORMAL) CBC with auto differential (05/17/2024 4:30 AM DIRECTOR OF EMPLOYER SERVICES) [facility] WBC 5.6 3.8 - 9.9 K/cumm Hgb 11.7(L) 13.0 - 17.5 g/dL [facility] Hct 34.4(L) 38.9 - 50.3 % [facility] Plt 309 150 - 400 K/cumm [facility] MPV 10.0 9.1 - 12.3 fL [facility] RBC 3.90(L) 4.30 - 5.80 M/cumm [facility] MCV 88.2 81.3 - 96.4 fL [facility] MCH 30.0 27.1 - 33.3 pg [facility] MCHC 34.0 32.3 - 35.7 g/dL [facility] RDW CV 12.0 11.1 - 14.9 % [facility] RDW SD 38.7 35.7 - 48.1 fL [facility] NRBC abs 0.00 0.00 - 0.01 K/cumm [facility] Blood 05/17/2024 4:30 AM DIRECTOR OF EMPLOYER SERVICES 05/17/2024 5:33 AM DIRECTOR OF EMPLOYER SERVICES us Denise Gonzalez MD PhD LAB BLOOD ORDERABLES Final Result [facility] Department [place] [address] * (ABNORMAL) Comprehensive metabolic panel (05/17/2024 4:30 AM DIRECTOR OF EMPLOYER SERVICES) [facility] Sodium 142 135 - 145 mmol/L Potassium, pl 4.6 3.3 - 4.9 mmol/L [facility] Chloride 105 97 - 110 mmol/L [facility] CO2 30 22 - 32 mmol/L [facility] Anion gap 7 2 - 15 mmol/L [facility] BUN 15 6 - 25 mg/dL [facility] Creatinine 0.72(L) 0.80 - 1.30 mg/dL [facility] Glucose 117 70 - 199 mg/dL [facility] Comment: Interpretive Data Fasting glucose >/= 126 mg/dl is diagnostic for diabetes. ?? Fasting is defined as no caloric intake for at least 8 hours. Fasting glucose between 100 mg/dl to 125 mg/dl is diagnostic of prediabetes. In a patient with classic symptoms of hyperglycemia or hyperglycemic crisis, a random glucose >/= 200 mg/dl is diagnostic for diabetes. In the absence of unequivocal hyperglycemia, results should be confirmed by repeat testing. The classification and Diagnosis of Diabetes Diabetes Care 202; 46: S19-S40. Current interpretive data was last revised 2022. Calcium 9.5 8.5 - 10.3 mg/dL [facility] Bilirubin, total <0.2 0.1 - 1.2 mg/dL [facility] Protein, pl 6.7 6.5 - 8.5 g/dL [facility] Albumin 3.9 3.5 - 5.0 g/dL [facility] Alk phos 55 40 - 130 Units/L [facility] ALT 33 7 - 55 Units/L [facility] AST 28 10 - 50 Units/L [facility] Blood 05/17/2024 4:30 AM DIRECTOR OF EMPLOYER SERVICES 05/17/2024 5:30 AM DIRECTOR OF EMPLOYER SERVICES us Denise Gonzalez MD PhD LAB BLOOD ORDERABLES Final Result [facility] Department [place] [address] * eGFR (05/16/2024 5:18 AM DIRECTOR OF EMPLOYER SERVICES) eGFR >90 >=60 mL/min/1. 73 m2 Comment: Interpretive Data Reference Interval Normal ?>/= 90 mL/min/1.73m2 Mildly decreased* ? 60 - 89 mL/min/1.73m2 Mildly to moderately decreased ?45 - 59 mL/min/1.73m2 Moderately to severely decreased ??30 - 44 mL/min/1.73m2 Severely decreased ?15 - 29 mL/min/1.73m2 Kidney Failure ?< 15 ??mL/min/1.73m2 *Relative to young adult level Estimated glomerular filtration rate is determined by the 2020 CKD-EPI equation recommended by the National Kidney Foundation (A Unifying Approach to GFR Estimation: Recommendations of the NKF-ASK Task Force on Reassessing the Inclusion of Race in Diagnosing Kidney Disease, JASN 202). The CKD-EPI equation should not be used for patients with unstable renal function and has not been validated in children and those over 70. Current interpretive data was last reviewed 2021. Blood 05/16/2024 5:18 AM DIRECTOR OF EMPLOYER SERVICES 05/16/2024 6:40 AM DIRECTOR OF EMPLOYER SERVICES us Denise Gonzalez MD PhD LAB BLOOD ORDERABLES Final Result [facility] Department [place] [address] * Differential, auto (05/16/2024 5:18 AM DIRECTOR OF EMPLOYER SERVICES) Neutrophil abs 2.7 1.5 - 6.5 K/cumm Imm gran abs 0.0 0.0 - 0.1 K/cumm [facility] Lymphocyte abs 2.6 0.8 - 3.3 K/cumm [facility] Monocyte abs 0.4 0.2 - 0.8 K/cumm [facility] Eosinophil abs 0.3 0.0 - 0.5 K/cumm [facility] Basophil abs 0.1 0.0 - 0.1 K/cumm [facility] Neutrophil pct 44.1 % [facility] Comment: Interpretive Data Percent cell count reference ranges are not reported, since discordance with absolute values may lead to misinterpretation of CBC data. Current Interpretive Data was last revised on 2017. Imm gran pct 0.3 % [facility] Comment: Interpretive Data Percent cell count reference ranges are not reported, since discordance with absolute values may lead to misinterpretation of CBC data. Current Interpretive Data was last revised on 2017. Lymphocyte pct 42.0 % [facility] Comment: Interpretive Data Percent cell count reference ranges are not reported, since discordance with absolute values may lead to misinterpretation of CBC data. Current Interpretive Data was last revised on 2017. Monocyte pct 7.2 % [facility] Comment: Interpretive Data Percent cell count reference ranges are not reported, since discordance with absolute values may lead to misinterpretation of CBC data. Current Interpretive Data was last revised on 2017. Eosinophil pct 5.4 % [facility] Comment: Interpretive Data Percent cell count reference ranges are not reported, since discordance with absolute values may lead to misinterpretation of CBC data. Current Interpretive Data was last revised on 2017. Basophil pct 1.0 % [facility] Comment: Interpretive Data Percent cell count reference ranges are not reported, since discordance with absolute values may lead to misinterpretation of CBC data. Current Interpretive Data was last revised on 2017. Blood 05/16/2024 5:18 AM DIRECTOR OF EMPLOYER SERVICES 05/16/2024 6:40 AM DIRECTOR OF EMPLOYER SERVICES us Denise Gonzalez MD PhD LAB BLOOD ORDERABLES Final Result [facility] Department [place] [address] * (ABNORMAL) CBC with auto differential (05/16/2024 5:18 AM DIRECTOR OF EMPLOYER SERVICES) WBC 6.2 3.8 - 9.9 K/cumm Hgb 11.1(L) 13.0 - 17.5 g/dL [facility] Hct 32.6(L) 38.9 - 50.3 % [facility] Plt 291 150 - 400 K/cumm [facility] MPV 10.0 9.1 - 12.3 fL [facility] RBC 3.66(L) 4.30 - 5.80 M/cumm [facility] MCV 89.1 81.3 - 96.4 fL [facility] MCH 30.3 27.1 - 33.3 pg [facility] MCHC 34.0 32.3 - 35.7 g/dL [facility] RDW CV 11.9 11.1 - 14.9 % [facility] RDW SD 38.4 35.7 - 48.1 fL [facility] NRBC abs 0.00 0.00 - 0.01 K/cumm [facility] Blood 05/16/2024 5:18 AM DIRECTOR OF EMPLOYER SERVICES 05/16/2024 6:40 AM DIRECTOR OF EMPLOYER SERVICES us Denise Gonzalez MD PhD LAB BLOOD ORDERABLES Final Result Performing Organization Address [facility] de Phone Number [facility] Department [place] [address] * Vancomycin level trough prior to 4th dose (05/16/2024 5:18 AM DIRECTOR OF EMPLOYER SERVICES) [facility] Vancomycin trough 15.0 10.0 - 20.0 mcg/mL Comment:Repeated and Verifie d Blood 05/16/2024 5:18 AM DIRECTOR OF EMPLOYER SERVICES 05/16/2024 6:40 AM DIRECTOR OF EMPLOYER SERVICES Narrative [facility] - 05/16/2024 7:32 AM DIRECTOR OF EMPLOYER SERVICES prior to 4th dose us Malcolm Deras MD LAB BLOOD ORDERABLES Fin al Result Performing Organization Address [facility] de Phone Number [facility] Department [place] [address] * (ABNORMAL) Comprehensive metabolic panel (05/16/2024 5:18 AM DIRECTOR OF EMPLOYER SERVICES) [facility] Sodium 140 135 - 145 mmol/L Potassium, pl 4.3 3.3 - 4.9 mmol/L [facility] Chloride 106 97 - 110 mmol/L [facility] CO2 28 22 - 32 mmol/L [facility] Anion gap 6 2 - 15 mmol/L [facility] BUN 12 6 - 25 mg/dL [facility] Creatinine 0.70(L) 0.80 - 1.30 mg/dL [facility] Glucose 91 70 - 199 mg/dL [facility] Comment: Interpretive Data Fasting glucose >/= 126 mg/dl is diagnostic for diabetes. ?? Fasting is defined as no caloric intake for at least 8 hours. Fasting glucose between 100 mg/dl to 125 mg/dl is diagnostic of prediabetes. In a patient with classic symptoms of hyperglycemia or hyperglycemic crisis, a random glucose >/= 200 mg/dl is diagnostic for diabetes. In the absence of unequivocal hyperglycemia, results should be confirmed by repeat testing. The classification and Diagnosis of Diabetes Diabetes Care 2021; 46: S19-S40. Current interpretive data was last revised 2022. Calcium 9.2 8.5 - 10.3 mg/dL [facility] Bilirubin, total <0.2 0.1 - 1.2 mg/dL [facility] Protein, pl 6.4(L) 6.5 - 8.5 g/dL [facility] Albumin 3.7 3.5 - 5.0 g/dL [facility] Alk phos 53 40 - 130 Units/L [facility] ALT 26 7 - 55 Units/L [facility] AST 21 10 - 50 Units/L [facility] Blood 05/16/2024 5:18 AM DIRECTOR OF EMPLOYER SERVICES 05/16/2024 6:40 AM DIRECTOR OF EMPLOYER SERVICES us Denise Gonzalez MD PhD LAB BLOOD ORDERABLES Final Result [facility] Department [place] [address] * eGFR (05/15/2024 4:41 AM DIRECTOR OF EMPLOYER SERVICES) Pathologist [facility] eGFR >90 >=60 mL/min/1. 73 m2 Comment: Interpretive Data Reference Interval Normal ?>/= 90 mL/min/1.73m2 Mildly decreased* ? 60 - 89 mL/min/1.73m2 Mildly to moderately decreased ?45 - 59 mL/min/1.73m2 Moderately to severely decreased ??30 - 44 mL/min/1.73m2 Severely decreased ?15 - 29 mL/min/1.73m2 Kidney Failure ?< 15 ??mL/min/1.73m2 *Relative to young adult level Estimated glomerular filtration rate is determined by the 2020 CKD-EPI equation recommended by the National Kidney Foundation (A Unifying Approach to GFR Estimation: Recommendations of the NKF-ASK Task Force on Reassessing the Inclusion of Race in Diagnosing Kidney Disease, JASN 2020). The CKD-EPI equation should not be used for patients with unstable renal function and has not been validated in children and those over 70. Current interpretive data was last reviewed 2021. Blood 05/15/2024 4:41 AM DIRECTOR OF EMPLOYER SERVICES 05/15/2024 5:48 AM DIRECTOR OF EMPLOYER SERVICES us Denise Gonzalez MD PhD LAB BLOOD ORDERABLES Final Result [facility] Department [place] [address] * Differential, auto (05/15/2024 4:41 AM DIRECTOR OF EMPLOYER SERVICES) Pathologist [facility] Neutrophil abs 2.7 1.5 - 6.5 K/cumm Imm gran abs 0.0 0.0 - 0.1 K/cumm [facility] Lymphocyte abs 2.7 0.8 - 3.3 K/cumm [facility] Monocyte abs 0.6 0.2 - 0.8 K/cumm [facility] Eosinophil abs 0.5 0.0 - 0.5 K/cumm [facility] Basophil abs 0.1 0.0 - 0.1 K/cumm [facility] Neutrophil pct 41.3 % [facility] Comment: Interpretive Data Percent cell count reference ranges are not reported, since discordance with absolute values may lead to misinterpretation of CBC data. Current Interpretive Data was last revised on 2017. Imm gran pct 0.3 % [facility] Comment: Interpretive Data Percent cell count reference ranges are not reported, since discordance with absolute values may lead to misinterpretation of CBC data. Current Interpretive Data was last revised on 2017. Lymphocyte pct 41.3 % [facility] Comment: Interpretive Data Percent cell count reference ranges are not reported, since discordance with absolute values may lead to misinterpretation of CBC data. Current Interpretive Data was last revised on 2017. Monocyte pct 9.0 % [facility] Comment: Interpretive Data Percent cell count reference ranges are not reported, since discordance with absolute values may lead to misinterpretation of CBC data. Current Interpretive Data was last revised on 2017. Eosinophil pct 7.0 % [facility] Comment: Interpretive Data Percent cell count reference ranges are not reported, since discordance with absolute values may lead to misinterpretation of CBC data. Current Interpretive Data was last revised on 2017. Basophil pct 1.1 % [facility] Comment: Interpretive Data Percent cell count reference ranges are not reported, since discordance with absolute values may lead to misinterpretation of CBC data. Current Interpretive Data was last revised on 2017. Blood 05/15/2024 4:41 AM DIRECTOR OF EMPLOYER SERVICES 05/15/2024 5:49 AM DIRECTOR OF EMPLOYER SERVICES us Denise Gonzalez MD PhD LAB BLOOD ORDERABLES Final Result [facility] Department [place] [address] * (ABNORMAL) CBC with auto differential (05/15/2024 4:41 AM DIRECTOR OF EMPLOYER SERVICES) WBC 6.5 3.8 - 9.9 K/cumm Hgb 10.9(L) 13.0 - 17.5 g/dL [facility] Hct 31.7(L) 38.9 - 50.3 % [facility] Plt 310 150 - 400 K/cumm [facility] MPV 10.0 9.1 - 12.3 fL [facility] RBC 3.60(L) 4.30 - 5.80 M/cumm [facility] MCV 88.1 81.3 - 96.4 fL [facility] MCH 30.3 27.1 - 33.3 pg [facility] MCHC 34.4 32.3 - 35.7 g/dL [facility] RDW CV 11.6 11.1 - 14.9 % [facility] RDW SD 37.6 35.7 - 48.1 fL [facility] NRBC abs 0.00 0.00 - 0.01 K/cumm [facility] Blood 05/15/2024 4:41 AM DIRECTOR OF EMPLOYER SERVICES 05/15/2024 5:49 AM DIRECTOR OF EMPLOYER SERVICES us Denise Gonzalez MD PhD LAB BLOOD ORDERABLES Final Result Performing Organization Address [facility]/[employer] de Phone Number [facility] Department [place] [address] * (ABNORMAL) Vancomycin level trough (05/15/2024 4:41 AM DIRECTOR OF EMPLOYER SERVICES) Pathologist [facility] Vancomycin trough 9.7(L) 10.0 - 20.0 mcg/mL Comment:Reviewed Blood 05/15/2024 4:41 AM DIRECTOR OF EMPLOYER SERVICES 05/15/2024 5:49 AM DIRECTOR OF EMPLOYER SERVICES Karine Ulloa MD LAB BLOOD ORDERABLES Fin al Result Performing Organization Address [facility] de Phone Number [facility] [place] [address] * (ABNORMAL) Comprehensive metabolic panel (05/15/2024 4:41 AM DIRECTOR OF EMPLOYER SERVICES) Pathologist [facility] Sodium 142 135 - 145 mmol/L Potassium, pl 4.3 3.3 - 4.9 mmol/L [facility] Chloride 107 97 - 110 mmol/L [facility] CO2 29 22 - 32 mmol/L [facility] Anion gap 6 2 - 15 mmol/L [facility] BUN 9 6 - 25 mg/dL [facility] Creatinine 0.68(L) 0.80 - 1.30 mg/dL [facility] Glucose 105 70 - 199 mg/dL [facility] Comment: Interpretive Data Fasting glucose >/= 126 mg/dl is diagnostic for diabetes. ?? Fasting is defined as no caloric intake for at least 8 hours. Fasting glucose between 100 mg/dl to 125 mg/dl is diagnostic of prediabetes. In a patient with classic symptoms of hyperglycemia or hyperglycemic crisis, a random glucose >/= 200 mg/dl is diagnostic for diabetes. In the absence of unequivocal hyperglycemia, results should be confirmed by repeat testing. The classification and Diagnosis of Diabetes Diabetes Care 2021; 46: S19-S40. Current interpretive data was last revised 2022. Calcium 9.0 8.5 - 10.3 mg/dL [facility] Bilirubin, total <0.2 0.1 - 1.2 mg/dL [facility] Protein, pl 6.0(L) 6.5 - 8.5 g/dL [facility] Albumin 3.4(L) 3.5 - 5.0 g/dL [facility] Alk phos 55 40 - 130 Units/L [facility] ALT 27 7 - 55 Units/L [facility] AST 23 10 - 50 Units/L [facility] Blood 05/15/2024 4:41 AM DIRECTOR OF EMPLOYER SERVICES 05/15/2024 5:48 AM DIRECTOR OF EMPLOYER SERVICES us Denise Gonzalez MD PhD LAB BLOOD ORDERABLES Final Result [facility] Department [place] [address] * Blood culture Blood (05/14/2024 11:29 PM DIRECTOR OF EMPLOYER SERVICES) Report Final Report: No growth Blood 05/14/2024 11:2 9 PM DIRECTOR OF EMPLOYER SERVICES 05/15/2024 12:50 AM DIRECTOR OF EMPLOYER SERVICES Narrative [facility] - 05/19/2024 7:00 AM DIRECTOR OF EMPLOYER SERVICES Collection->Peripheral 1. ?Blood cultures are incubated for 4 days on a continuously monitored blood culture system. The first report of a negative culture is issued within 24 hours of receipt of the specimen in the laboratory. 2. ?Positive culture results are reported as soon as they are detected. 3. ?The most important factor for detection of microbes in the setting of bloodstream infection is the volume of blood submitted for culture. Failure to collect an optimal blood volume can result in false negative blood cultures. 4. ? For pediatric patients, the recommended blood volume to collect follows a weight based strategy. See the electronic test catalog for collection instructions. 5. ?For positive blood cultures, a rapid molecular test may be performed for organism identification using the [employer] ePlex blood culture identification panel for gram positive (BCID-GP) and gram negative (BCID-GN) organisms. This nucleic acid amplification test detects microbial DNA in positive blood culture broth. This assay has been cleared by the [place] Food and Drug Administration and its performance characteristics have been verified by the [facility]biology Laboratory. For questions about this culture, contact the Microbiology Laboratory at [phone]. Interpretive data was last revised on 24. us Karine Ulloa MD LAB MICROBIOLOGY - GENER AL ORDERABLES Final Result [facility] Department [place] [address] * Blood culture Blood (05/14/2024 11:29 PM DIRECTOR OF EMPLOYER SERVICES) Report Final Report: No growth Blood 05/14/2024 11:2 9 PM DIRECTOR OF EMPLOYER SERVICES 05/15/2024 12:50 AM DIRECTOR OF EMPLOYER SERVICES Narrative [facility] - 05/19/2024 7:00 AM DIRECTOR OF EMPLOYER SERVICES Collection->Peripheral 1. ?Blood cultures are incubated for 4 days on a continuously monitored blood culture system. The first report of a negative culture is issued within 24 hours of receipt of the specimen in the laboratory. 2. ?Positive culture results are reported as soon as they are detected. 3. ?The most important factor for detection of microbes in the setting of bloodstream infection is the volume of blood submitted for culture. Failure to collect an optimal blood volume can result in false negative blood cultures. 4. ? For pediatric patients, the recommended blood volume to collect follows a weight based strategy. See the electronic test catalog for collection instructions. 5. ?For positive blood cultures, a rapid molecular test may be performed for organism identification using the [employer] ePlex blood culture identification panel for gram positive (BCID-GP) and gram negative (BCID-GN) organisms. This nucleic acid amplification test detects microbial DNA in positive blood culture broth. This assay has been cleared by the [place] Food and Drug Administration and its performance characteristics have been verified by the [facility]. For questions about this culture, contact the Microbiology Laboratory at [phone]. Interpretive data was last revised on 24. us Karine Ulloa MD LAB MICROBIOLOGY - GENER AL ORDERABLES Final Result [facility] Department [place] [address] * eGFR (05/14/2024 5:08 AM DIRECTOR OF EMPLOYER SERVICES) eGFR >90 >=60 mL/min/1. 73 m2 Comment: Interpretive Data Reference Interval Normal ?>/= 90 mL/min/1.73m2 Mildly decreased* ? 60 - 89 mL/min/1.73m2 Mildly to moderately decreased ?45 - 59 mL/min/1.73m2 Moderately to severely decreased ??30 - 44 mL/min/1.73m2 Severely decreased ?15 - 29 mL/min/1.73m2 Kidney Failure ?< 15 ??mL/min/1.73m2 *Relative to young adult level Estimated glomerular filtration rate is determined by the 2020 CKD-EPI equation recommended by the National Kidney Foundation (A Unifying Approach to GFR Estimation: Recommendations of the NKF-ASK Task Force on Reassessing the Inclusion of Race in Diagnosing Kidney Disease, JASN 2020). The CKD-EPI equation should not be used for patients with unstable renal function and has not been validated in children and those over 70. Current interpretive data was last reviewed 2021. Blood 05/14/2024 5:08 AM DIRECTOR OF EMPLOYER SERVICES 05/14/2024 6:48 AM DIRECTOR OF EMPLOYER SERVICES us Denise Gonzalez MD PhD LAB BLOOD ORDERABLES Final Result [facility] Department [place] [address] * Differential, auto (05/14/2024 5:08 AM DIRECTOR OF EMPLOYER SERVICES) Neutrophil abs 3.1 1.5 - 6.5 K/cumm Imm gran abs 0.0 0.0 - 0.1 K/cumm [facility] Lymphocyte abs 2.3 0.8 - 3.3 K/cumm [facility] Monocyte abs 0.7 0.2 - 0.8 K/cumm [facility] Eosinophil abs 0.4 0.0 - 0.5 K/cumm [facility] Basophil abs 0.1 0.0 - 0.1 K/cumm [facility] Neutrophil pct 47.2 % [facility] [facility] Comment: Interpretive Data Percent cell count reference ranges are not reported, since discordance with absolute values may lead to misinterpretation of CBC data. Current Interpretive Data was last revised on 2017. Imm gran pct 0.3 % [facility] Comment: Interpretive Data Percent cell count reference ranges are not reported, since discordance with absolute values may lead to misinterpretation of CBC data. Current Interpretive Data was last revised on 2017. Lymphocyte pct 34.6 % [facility] Comment: Interpretive Data Percent cell count reference ranges are not reported, since discordance with absolute values may lead to misinterpretation of CBC data. Current Interpretive Data was last revised on 2017. Monocyte pct 10.3 % [facility] Comment: Interpretive Data Percent cell count reference ranges are not reported, since discordance with absolute values may lead to misinterpretation of CBC data. Current Interpretive Data was last revised on 2017. Eosinophil pct 6.5 % [facility] Comment: Interpretive Data Percent cell count reference ranges are not reported, since discordance with absolute values may lead to misinterpretation of CBC data. Current Interpretive Data was last revised on 2017. Basophil pct 1.1 % [facility] Comment: Interpretive Data Percent cell count reference ranges are not reported, since discordance with absolute values may lead to misinterpretation of CBC data. Current Interpretive Data was last revised on 2017. Blood 05/14/2024 5:08 AM DIRECTOR OF EMPLOYER SERVICES 05/14/2024 6:47 AM DIRECTOR OF EMPLOYER SERVICES Denise Gonzalez MD PhD LAB BLOOD ORDERABLES Final Result Performing Organization Address City/[facility]/ZIP Co de Phone Number [facility] Department [place] [address] * (ABNORMAL) CBC with auto differential (05/14/2024 5:08 AM DIRECTOR OF EMPLOYER SERVICES) WBC 6.6 3.8 - 9.9 K/cumm Hgb 12.5(L) 13.0 - 17.5 g/dL [facility] Hct 36.3(L) 38.9 - 50.3 % [facility] Plt 340 150 - 400 K/cumm [facility] MPV 9.9 9.1 - 12.3 fL [facility] RBC 4.09(L) 4.30 - 5.80 M/cumm [facility] MCV 88.8 81.3 - 96.4 fL [facility] MCH 30.6 27.1 - 33.3 pg [facility] MCHC 34.4 32.3 - 35.7 g/dL [facility] RDW CV 11.9 11.1 - 14.9 % [facility] RDW SD 37.9 35.7 - 48.1 fL [facility] NRBC abs 0.00 0.00 - 0.01 K/cumm [facility] Blood 05/14/2024 5:08 AM DIRECTOR OF EMPLOYER SERVICES 05/14/2024 6:47 AM DIRECTOR OF EMPLOYER SERVICES Denise Gonzalez MD PhD LAB BLOOD ORDERABLES Final Result Performing Organization Address City/[facility]/ZIP Co de Phone Number [facility] Department [place] [address] * Comprehensive metabolic panel (05/14/2024 5:08 AM DIRECTOR OF EMPLOYER SERVICES) Sodium 142 135 - 145 mmol/L Potassium, pl 4.1 3.3 - 4.9 mmol/L [facility] Chloride 108 97 - 110 mmol/L [facility] CO2 27 22 - 32 mmol/L [facility] Anion gap 7 2 - 15 mmol/L [facility] BUN 12 6 - 25 mg/dL [facility] Creatinine 0.80 0.80 - 1.30 mg/dL [facility] Glucose 93 70 - 199 mg/dL [facility] Comment: Interpretive Data Fasting glucose >/= 126 mg/dl is diagnostic for diabetes. ?? Fasting is defined as no caloric intake for at least 8 hours. Fasting glucose between 100 mg/dl to 125 mg/dl is diagnostic of prediabetes. In a patient with classic symptoms of hyperglycemia or hyperglycemic crisis, a random glucose >/= 200 mg/dl is diagnostic for diabetes. In the absence of unequivocal hyperglycemia, results should be confirmed by repeat testing. The classification and Diagnosis of Diabetes Diabetes Care 2021; 46: S19-S40. Current interpretive data was last revised 2022. Calcium 9.5 8.5 - 10.3 mg/dL [facility] Bilirubin, total <0.2 0.1 - 1.2 mg/dL [facility] Comment:Reviewed Protein, pl 6.8 6.5 - 8.5 g/dL [facility] Albumin 4.0 3.5 - 5.0 g/dL [facility] Alk phos 64 40 - 130 Units/L [facility] ALT 34 7 - 55 Units/L [facility] AST 24 10 - 50 Units/L [facility] Blood 05/14/2024 5:08 AM DIRECTOR OF EMPLOYER SERVICES 05/14/2024 6:47 AM DIRECTOR OF EMPLOYER SERVICES us Denise Gonzalez MD PhD LAB BLOOD ORDERABLES Final Result [facility] Department [place] [address] * (ABNORMAL) Vancomycin level trough (05/13/2024 4:15 PM DIRECTOR OF EMPLOYER SERVICES) Vancomycin trough 8.3(L) 10.0 - 20.0 mcg/mL Blood 05/13/2024 4:15 PM DIRECTOR OF EMPLOYER SERVICES 05/13/2024 5:12 PM DIRECTOR OF EMPLOYER SERVICES Karine Ulloa MD LAB BLOOD ORDERABLES Fin al Result Performing Organization Address City/State/[place] Co ak Phone Number [facility] Department [place] [address] * eGFR (05/13/2024 6:14 AM DIRECTOR OF EMPLOYER SERVICES) eGFR >90 >=60 mL/min/1. 73 m2 Comment: Interpretive Data Reference Interval Normal ?>/= 90 mL/min/1.73m2 Mildly decreased* ? 60 - 89 mL/min/1.73m2 Mildly to moderately decreased ?45 - 59 mL/min/1.73m2 Moderately to severely decreased ??30 - 44 mL/min/1.73m2 Severely decreased ?15 - 29 mL/min/1.73m2 Kidney Failure ?< 15 ??mL/min/1.73m2 *Relative to young adult level Estimated glomerular filtration rate is determined by the 2020 CKD-EPI equation recommended by the National Kidney Foundation (A Unifying Approach to GFR Estimation: Recommendations of the NKF-ASK Task Force on Reassessing the Inclusion of Race in Diagnosing Kidney Disease, JASN 2020). The CKD-EPI equation should not be used for patients with unstable renal function and has not been validated in children and those over 70. Current interpretive data was last reviewed 2021. Blood 05/13/2024 6:14 AM DIRECTOR OF EMPLOYER SERVICES 05/13/2024 7:50 AM DIRECTOR OF EMPLOYER SERVICES us Denise Gonzalez MD PhD LAB BLOOD ORDERABLES Final Result [facility] Department [place] [address] * Differential, auto (05/13/2024 6:14 AM DIRECTOR OF EMPLOYER SERVICES) Neutrophil abs 5.3 1.5 - 6.5 K/cumm Imm gran abs 0.0 0.0 - 0.1 K/cumm [facility] Lymphocyte abs 1.5 0.8 - 3.3 K/cumm [facility] Monocyte abs 0.7 0.2 - 0.8 K/cumm [facility] Eosinophil abs 0.3 0.0 - 0.5 K/cumm [facility] Basophil abs 0.1 0.0 - 0.1 K/cumm [facility] Neutrophil pct 67.1 % [facility] Comment: Interpretive Data Percent cell count reference ranges are not reported, since discordance with absolute values may lead to misinterpretation of CBC data. Current Interpretive Data was last revised on 2017. Imm gran pct 0.4 % [facility] Comment: Interpretive Data Percent cell count reference ranges are not reported, since discordance with absolute values may lead to misinterpretation of CBC data. Current Interpretive Data was last revised on 2017. Lymphocyte pct 18.9 % [facility] Comment: Interpretive Data Percent cell count reference ranges are not reported, since discordance with absolute values may lead to misinterpretation of CBC data. Current Interpretive Data was last revised on 2017. Monocyte pct 8.5 % [facility] Comment: Interpretive Data Percent cell count reference ranges are not reported, since discordance with absolute values may lead to misinterpretation of CBC data. Current Interpretive Data was last revised on 2017. Eosinophil pct 4.2 % [facility] Comment: Interpretive Data Percent cell count reference ranges are not reported, since discordance with absolute values may lead to misinterpretation of CBC data. Current Interpretive Data was last revised on 2017. Basophil pct 0.9 % [facility] Comment: Interpretive Data Percent cell count reference ranges are not reported, since discordance with absolute values may lead to misinterpretation of CBC data. Current Interpretive Data was last revised on 2017. Blood 05/13/2024 6:14 AM DIRECTOR OF EMPLOYER SERVICES 05/13/2024 6:45 AM DIRECTOR OF EMPLOYER SERVICES Denise Gonzalez MD PhD LAB BLOOD ORDERABLES Final Result [facility] Department [place] [address] * (ABNORMAL) CBC with auto differential (05/13/2024 6:14 AM DIRECTOR OF EMPLOYER SERVICES) WBC 7.9 3.8 - 9.9 K/cumm Hgb 11.7(L) 13.0 - 17.5 g/dL [facility] Hct 34.4(L) 38.9 - 50.3 % [facility] Plt 292 150 - 400 K/cumm [facility] MPV 9.5 9.1 - 12.3 fL [facility] RBC 3.92(L) 4.30 - 5.80 M/cumm [facility] MCV 87.8 81.3 - 96.4 fL [facility] MCH 29.8 27.1 - 33.3 pg [facility] MCHC 34.0 32.3 - 35.7 g/dL [facility] RDW CV 11.7 11.1 - 14.9 % [facility] RDW SD 37.2 35.7 - 48.1 fL [facility] NRBC abs 0.00 0.00 - 0.01 K/cumm [facility] Blood 05/13/2024 6:14 AM DIRECTOR OF EMPLOYER SERVICES 05/13/2024 6:45 AM DIRECTOR OF EMPLOYER SERVICES Denise Gonzalez MD PhD LAB BLOOD ORDERABLES Final Result Performing Organization Address City/[facility]/ZIP Co de Phone Number [facility] Department [place] [address] * Valproic acid level, total (05/13/2024 6:14 AM DIRECTOR OF EMPLOYER SERVICES) [facility] Valproic Acid 55.0 50.0 - 100.0 mcg/mL Comment: Interpretive Data Therapeutic or toxic effects of anticonvulsant drugs may occur at different concentrations in different patients and the correlation between dose and clinical effect must be evaluated individually. Current interpretative data was last revised on 13. Blood 05/13/2024 6:14 AM DIRECTOR OF EMPLOYER SERVICES 05/13/2024 6:45 AM DIRECTOR OF EMPLOYER SERVICES [facility]LO[facility] ORDERABLES Final Result Performing Organization Address [facility] de Phone Number [facility] [place] [address] * (ABNORMAL) Carbamazepine level, total (05/13/2024 6:14 AM DIRECTOR OF EMPLOYER SERVICES) [facility] Carbamazepine <3.0(L) 4.0 - 12.0 mcg/mL Comment: Interpretive Data Therapeutic or Toxic effect of anticonvulsant drugs may occur at different concentrations in different patients and the correlation between dose and clinical effect must be evaluated individually. Current interpretive data was last revised on 13. Blood 05/13/2024 6:14 AM DIRECTOR OF EMPLOYER SERVICES 05/13/2024 6:45 AM DIRECTOR OF EMPLOYER SERVICES Yaritza Lopez [facility] LAB BLOOD ORDERABLES Final Result Performing Organization Address [facility] de Phone Number [facility] [place] [address] * (ABNORMAL) Comprehensive metabolic panel (05/13/2024 6:14 AM DIRECTOR OF EMPLOYER SERVICES) [facility] Sodium 141 135 - 145 mmol/L Potassium, pl 3.8 3.3 - 4.9 mmol/L [facility] Chloride 107 97 - 110 mmol/L [facility] CO2 26 22 - 32 mmol/L [facility] Anion gap 8 2 - 15 mmol/L [facility] BUN 12 6 - 25 mg/dL [facility] Creatinine 0.70(L) 0.80 - 1.30 mg/dL [facility] Glucose 103 70 - 199 mg/dL [facility] Comment: Interpretive Data Fasting glucose >/= 126 mg/dl is diagnostic for diabetes. ?? Fasting is defined as no caloric intake for at least 8 hours. Fasting glucose between 100 mg/dl to 125 mg/dl is diagnostic of prediabetes. In a patient with classic symptoms of hyperglycemia or hyperglycemic crisis, a random glucose >/= 200 mg/dl is diagnostic for diabetes. In the absence of unequivocal hyperglycemia, results should be confirmed by repeat testing. The classification and Diagnosis of Diabetes Diabetes Care 2021; 46: S19-S40. Current interpretive data was last revised 2022. Calcium 8.9 8.5 - 10.3 mg/dL [facility] Bilirubin, total 0.2 0.1 - 1.2 mg/dL [facility] Protein, pl 6.2(L) 6.5 - 8.5 g/dL [facility] Albumin 3.5 3.5 - 5.0 g/dL [facility] Alk phos 58 40 - 130 Units/L [facility] ALT 34 7 - 55 Units/L [facility] AST 28 10 - 50 Units/L [facility] Blood 05/13/2024 6:14 AM DIRECTOR OF EMPLOYER SERVICES 05/13/2024 6:51 AM DIRECTOR OF EMPLOYER SERVICES us Denise Gonzalez MD PhD LAB BLOOD ORDERABLES Final Result [facility] Department [place] [address] * Check Sample (05/12/2024 12:27 PM DIRECTOR OF EMPLOYER SERVICES) ABO Rh B Negative [facility] HCLL OTHER 05/12/2024 12:2 7 PM DIRECTOR OF EMPLOYER SERVICES 05/12/2024 12:50 PM DIRECTOR OF EMPLOYER SERVICES us Cheryl Saldana MD PhD LAB BLOOD ORDERABLES Fi nal Result [facility] Department [place] [address] [facility] * (ABNORMAL) Aerobic and anaerobic culture and gram stain Abscess Finger, index, left (05/12/2024 12:27 PM DIRECTOR OF EMPLOYER SERVICES) Direct Specimen Exam Stain: Rare polymorphonuclear leukocytes seen. Rare Gram Positive Cocci Report Final Report: Few Staphylococcus aureus Methicillin resistant (MRSA) by penicillin binding protein 2a (PBP2a) testing. Few Streptococcus pyogenes (Group A Streptococci) Streptococcus pyogenes is uniformly susceptible to beta-lactam antibiotics and vancomycin. ??Routine susceptibility testing is not performed. (.) [facility] Organism STAPHYLOCOCCUS AUREUS [facility] Organism STREPTOCOCCUS PYOGENES (GROUP A STREPTOCOCCI) [facility] Abscess (Finger, index, left) 05/12/2024 12:27 PM DIRECTOR OF EMPLOYER SERVICES 05/12/2024 12:44 PM DIRECTOR OF EMPLOYER SERVICES Narrative [facility] - 05/15/2024 1:25 PM DIRECTOR OF EMPLOYER SERVICES Specimen received on an ESwab. Testing performed by [facility] Microbiology Laboratory ([phone]) Specimens submitted from normally sterile body sites will have all bacterial morphotypes identified. Specimens that contain grossly mixed anand and/or are from body sites that are not normally sterile will be examined for Staphylococcus aureus, Pseudomonas aeruginosa, beta-hemolytic strep, vancomycin-resistant Enterococcus, Bacteroides, Parabacteroides, Clostridium perfringens and fungus. If any of these are isolated, the organism will be reported. Current interpretive data was last revised on 2019. Organism Antibiotic Method Susceptibility Staphylococcus aureus Vancomycin INTERPRETATION Susceptible Staphylococcus aureus Ceftaroline INTERPRETATION Susceptible Staphylococcus aureus Trimethoprim with Sulfamethoxazole INTERPRETATION Susceptible Staphylococcus aureus Linezolid INTERPRETATION Susceptible Staphylococcus aureus Doxycycline INTERPRETATION Susceptible Staphylococcus aureus Clindamycin INTERPRETATION Resistant Staphylococcus aureus Erythromycin INTERPRETATION Resistant Staphylococcus aureus Oxacillin INTERPRETATION Resistant Staphylococcus aureus Cefazolin INTERPRETATION Resistant Staphylococcus aureus Ceftriaxone INTERPRETATION Resistant us Cheryl Saldana MD PhD LAB MICROBIOLOGY - [facility] ORDERABLES Final Result [facility] Department [place] [address] * Surgical pathology (05/12/2024 12:00 PM DIRECTOR OF EMPLOYER SERVICES) Tissue (Amputation non-tramatic) 05/12/2024 12:00 PM DIRECTOR OF EMPLOYER SERVICES 05/12/2024 4:45 PM DIRECTOR OF EMPLOYER SERVICES Narrative PATHOLOGY [facility] - 05/19/2024 12:00 PM DIRECTOR OF EMPLOYER SERVICES EPIC results best viewed via link to PDF [facility] [place] [address] Note to Patients: This report may contain a detailed description of human tissue sent by a health care provider to the laboratory for pathologic evaluation. The content of this report is essential for diagnosis and may provide important critical findings. This information may be unfamiliar to patients to review without a medical professional present. It is advised that the patient review this report in the presence of a health care provider who can answer questions and explain the details. SURGICAL PATHOLOGY REPORT FINAL Patient Name: ?? MONROE RAY Gender: ??M : ??1985 (Age: 38) Address: ??[place], [place] ??[address] Hospital #: ??[id number] Taken:05/12/2024 Received:05/12/2024 Reported: 05/19/2024 Patient Type: [facility] Inpatient ?? Service: Medical Location: [facility] Physician(s): ??Chen Gar M.D. MD Cheryl Sue M.D. Ashley Woodward MD Diagnosis: Finger, left index, amputation ? - Cutaneous ulcer with underlying chronic inflammation and fibrosis ? - No evidence of acute osteomyelitis albe/05/19/2024 11:25 By this signature, I attest that the above diagnosis is based upon my personal examination of the slides(and/or other material indicated in the diagnosis). Ge Gardner M.D. Report Electronically Reviewed and Signed Out By ??Ge Gardner M.D. 05/19/2024 12:00:39 Darrel Hernandez M.D. History: The patient is a 38-year-old man presenting with left index finger laceration to dorsal proximal interphalangeal joint with associated pain, erythema, swelling and purulent drainage. Operative procedure: Left index finger amputation at level of metacarpophalangeal joint. Specimen(s) Received: A: Left index finger Gross Description: Received in formalin labeled with the patient's identifiers and left index finger per requisition is a 9.3 cm in length by 1.3-2.5 cm in diameter disarticulated finger with an attached unremarkable fingernail. ??A 2.8 cm in length by 1.4 cm in diameter segment of proximal phalanx with a smooth articular surface extends from the grossly viable skin and soft tissue margin (inked black). ??The turcios-white skin is remarkable for 1.6 x 0.6 cm open wound with exposed necrotic soft tissue along the dorsal surface of the proximal interphalangeal joint coming within 1.5 cm to the skin and soft tissue margin. ??Two lacerations/linear defects emanate proximally and distally from the open wound with the closest laceration coming within 0.4 cm to the skin and soft tissue margin. ??Sectioning reveals dusky soft tissue and unremarkable trabecular bone. ??See attached photographs. ??Labeled A1 - patient services representative open wound to black- inked skin and soft tissue margin; A2 - patient services representative bone underlying open wound, submitted following acid decalcification. ??Jar 3. ? dxb/05/15/2024 15:52 PA(s): SEAN Renae, YUSEF([facility])CM By this signature, I attest that the above diagnosis is based upon my personal examination of the slides(and/or other material). Addenda/Procedures The performance characteristics of some immunohistochemical stains, fluorescence in-situ hybridization tests and immunophenotyping by flow cytometry cited in this report (if any) were determined by the Surgical Pathology and Flow Cytometry Departments at [facility] as part of an ongoing personnel quality assurance auditor program and in compliance with federally mandated regulations drawn from the Clinical Laboratory Improvement Act of 1988 (CLIA '88). ??Some of these tests rely on the use of analyte specific reagents and are subject to specific labeling requirements by the US Food and Drug Administration. ??Such diagnostic tests may only be performed in a facility that is certified by the Department of Health and Human Services as a high complexity laboratory under CLIA '88. ??The FDA has determined that such clearance or approval is not necessary. ??This test is used for clinical purposes. ??It should not be regarded as investigational or for research. ??Nevertheless, federal rules concerning the medical use of analyte specific reagents require that the following disclaimer be attached to the report: This test was developed and its performance characteristics determined by the Surgical Pathology and Flow Cytometry Departments of [facility]. ??It has not been cleared or approved by the U. S. Food and Drug Administration. IMAGES AND SCANNED DOCUMENTS, IF INCLUDED, ONLY VIEWABLE IN PDF VERSION OF REPORT Cheryl Saldana MD PhD LAB PATHOLOGY ORDERABLE S Final Result PATHOLOGY [facility] 3rd Floor [place], [place] [phone] * Type and screen (05/12/2024 9:30 AM DIRECTOR OF EMPLOYER SERVICES) Song, indirect Negative ABO Rh B Negative [facility] Blood 05/12/2024 9:30 AM DIRECTOR OF EMPLOYER SERVICES 05/12/2024 10:07 AM DIRECTOR OF EMPLOYER SERVICES Narrative [facility] - 05/12/2024 11:00 AM DIRECTOR OF EMPLOYER SERVICES Has the patient had Daratumumab or Isatuximab in the past 6 months?->Unknown Miguel Krishnamurthy MD LAB BLOOD BANK TEST ORDERABLES Final Result Performing Organization Address [facility]/[place] Co de Phone Number [facility] Department [place] [address] * XR Hand Left 3 or More Views (05/12/2024 6:27 AM DIRECTOR OF EMPLOYER SERVICES) Anatomical Region Laterality Modality Upper Extremities, Hand Left Computed Radiography 05/12/2024 7:27 AM DIRECTOR OF EMPLOYER SERVICES Impressions 05/12/2024 7:54 AM DIRECTOR OF EMPLOYER SERVICES There is diffuse soft tissue swelling about the left index finger. There is a soft tissue defect at the dorsal aspect of the proximal interphalangeal point. There is new joint space loss and irregularity involving the subjacent proximal interphalangeal joint, suspicious for septic arthritis. No radiopaque foreign bodies identified. No acute fractures identified. Alignment of the remainder of the hand is normal. Dictated by: Eric Veras MD The radiology attending physician has personally reviewed this study, and had reviewed and/or edited this written report and agrees with it. Electronically signed by: Shar Olvera M.D., Ph.D Narrative 05/12/2024 7:54 AM DIRECTOR OF EMPLOYER SERVICES EXAMINATION: XR HAND LEFT 3 OR MORE VIEWS HISTORY: ??Left index finger swelling and redness COMPARISON: Left index finger radiographs 04/30/2024 Procedure Note Shar Olvera MD PhD - 05/12/2024 EXAMINATION: XR HAND LEFT 3 OR MORE VIEWS HISTORY: Left index finger swelling and redness COMPARISON: Left index finger radiographs 04/30/2024 IMPRESSION: There is diffuse soft tissue swelling about the left index finger. There is a soft tissue defect at the dorsal aspect of the proximal interphalangeal point. There is new joint space loss and irregularity involving the subjacent proximal interphalangeal joint, suspicious for septic arthritis. No radiopaque foreign bodies identified. No acute fractures identified. Alignment of the remainder of the hand is normal. Dictated by: Eric Veras MD The radiology attending physician has personally reviewed this study, and had reviewed and/or edited this written report and agrees with it. Electronically signed by: Shar Olvera M.D., Ph.D Monroe Martínez MD IM XR PROCEDURES Flaca l Result * eGFR (05/12/2024 6:05 AM DIRECTOR OF EMPLOYER SERVICES) Pathologist [facility] eGFR >90 >=60 mL/min/1. 73 m2 Comment: Interpretive Data Reference Interval Normal ?>/= 90 mL/min/1.73m2 Mildly decreased* ? 60 - 89 mL/min/1.73m2 Mildly to moderately decreased ?45 - 59 mL/min/1.73m2 Moderately to severely decreased ??30 - 44 mL/min/1.73m2 Severely decreased ?15 - 29 mL/min/1.73m2 Kidney Failure ?< 15 ??mL/min/1.73m2 *Relative to young adult level Estimated glomerular filtration rate is determined by the 2020 CKD-EPI equation recommended by the National Kidney Foundation (A Unifying Approach to GFR Estimation: Recommendations of the NKF-ASK Task Force on Reassessing the Inclusion of Race in Diagnosing Kidney Disease, JASN 2020). The CKD-EPI equation should not be used for patients with unstable renal function and has not been validated in children and those over 70. Current interpretive data was last reviewed 2021. Blood 05/12/2024 6:05 AM DIRECTOR OF EMPLOYER SERVICES 05/12/2024 6:16 AM DIRECTOR OF EMPLOYER SERVICES us Cole Epperson MD LAB BLOOD ORDERABLES F inal Result [facility] Department [place] [address] * (ABNORMAL) Differential, auto (05/12/2024 6:05 AM DIRECTOR OF EMPLOYER SERVICES) Neutrophil abs 6.5 1.5 - 6.5 K/cumm Imm gran abs 0.0 0.0 - 0.1 K/cumm [facility] Lymphocyte abs 1.5 0.8 - 3.3 K/cumm [facility] Monocyte abs 0.9(H) 0.2 - 0.8 K/cumm [facility] Eosinophil abs 0.2 0.0 - 0.5 K/cumm [facility] Basophil abs 0.1 0.0 - 0.1 K/cumm [facility] Neutrophil pct 71.5 % [facility] Comment: Interpretive Data Percent cell count reference ranges are not reported, since discordance with absolute values may lead to misinterpretation of CBC data. Current Interpretive Data was last revised on 2017. Imm gran pct 0.2 % [facility] Comment: Interpretive Data Percent cell count reference ranges are not reported, since discordance with absolute values may lead to misinterpretation of CBC data. Current Interpretive Data was last revised on 2017. Lymphocyte pct 16.0 % [facility] Comment: Interpretive Data Percent cell count reference ranges are not reported, since discordance with absolute values may lead to misinterpretation of CBC data. Current Interpretive Data was last revised on 2017. Monocyte pct 9.8 % [facility] Comment: Interpretive Data Percent cell count reference ranges are not reported, since discordance with absolute values may lead to misinterpretation of CBC data. Current Interpretive Data was last revised on 2017. Eosinophil pct 1.9 % [facility] Comment: Interpretive Data Percent cell count reference ranges are not reported, since discordance with absolute values may lead to misinterpretation of CBC data. Current Interpretive Data was last revised on 2017. Basophil pct 0.6 % [facility] Comment: Interpretive Data Percent cell count reference ranges are not reported, since discordance with absolute values may lead to misinterpretation of CBC data. Current Interpretive Data was last revised on 2017. Blood 05/12/2024 6:05 AM DIRECTOR OF EMPLOYER SERVICES 05/12/2024 6:16 AM DIRECTOR OF EMPLOYER SERVICES us Cole Epperson MD LAB BLOOD ORDERABLES F inal Result [facility] Department [place] [address] * (ABNORMAL) CBC with auto differential (05/12/2024 6:05 AM DIRECTOR OF EMPLOYER SERVICES) WBC 9.1 3.8 - 9.9 K/cumm Hgb 12.7(L) 13.0 - 17.5 g/dL [facility] Hct 36.9(L) 38.9 - 50.3 % [facility] Plt 310 150 - 400 K/cumm [facility] MPV 9.0(L) 9.1 - 12.3 fL [facility] RBC 4.26(L) 4.30 - 5.80 M/cumm [facility] MCV 86.6 81.3 - 96.4 fL [facility] MCH 29.8 27.1 - 33.3 pg [facility] MCHC 34.4 32.3 - 35.7 g/dL [facility] RDW CV 11.9 11.1 - 14.9 % [facility] RDW SD 38.2 35.7 - 48.1 fL [facility] NRBC abs 0.00 0.00 - 0.01 K/cumm [facility] Blood 05/12/2024 6:05 AM DIRECTOR OF EMPLOYER SERVICES 05/12/2024 6:16 AM DIRECTOR OF EMPLOYER SERVICES us Cole Epperson MD LAB BLOOD ORDERABLES F inal Result [facility] Department [place] [address] * (ABNORMAL) Blood culture Blood Peripheral (05/12/2024 6:05 AM DIRECTOR OF EMPLOYER SERVICES) Direct Specimen Exam Molecular Analysis: Staphylococcus species detected by the [facility] [employer] BCID-GP panel. Single positive culture may represent contamination. This is most suggestive of a coagulase-negative Staphylococcus species. Please refer to final culture-based result for confirmation. This test does not exclude the possibility of a mixed bacterial infection. Notification of: Staphylococcus species called to and read back by: Radha Saleh MD ([phone]) on 05/14/2024 01:38:13 by: Mikey Hernandez MLS Direct Specimen Exam Stain: Gram Positive Cocci in clusters Time to culture positivity (aerobic media): 40.7 hours Notification of: Gram Positive Cocci in clusters called to and read back by: Pablito Peralta MD PhD ([phone]) on 05/13/2024 23:55:17 by: Mikey Hernandez MLS [facility] Report Final Report: Staphylococcus pettenkoferi Single blood culture positive for this microorganism. ??Isolate is a possible contaminant. If a similar isolate is recovered from a second blood culture collected within 3 days of this culture, both will be evaluated and, if determined to be the same species, antimicrobial susceptibility testing will be performed. (.) [facility] Organism STAPHYLOCOCCUS [facility] Blood (Peripheral) 05/12/2024 6:05 AM DIRECTOR OF EMPLOYER SERVICES 05/12/2024 6:26 AM DIRECTOR OF EMPLOYER SERVICES Zach ACOSTA - 05/17/2024 7:30 AM DIRECTOR OF EMPLOYER SERVICES From a different site than #1. Draw Blood cultures before administration of Antibiotics Collection->Peripheral 1. ?Blood cultures are incubated for 4 days on a continuously monitored blood culture system. The first report of a negative culture is issued within 24 hours of receipt of the specimen in the laboratory. 2. ?Positive culture results are reported as soon as they are detected. 3. ?The most important factor for detection of microbes in the setting of bloodstream infection is the volume of blood submitted for culture. Failure to collect an optimal blood volume can result in false negative blood cultures. 4. ? For pediatric patients, the recommended blood volume to collect follows a weight based strategy. See the electronic test catalog for collection instructions. 5. ?For positive blood cultures, a rapid molecular test may be performed for organism identification using the [facility] e[employer]lex blood culture identification panel for gram positive (BCID-GP) and gram negative (BCID-GN) organisms. This nucleic acid amplification test detects microbial DNA in positive blood culture broth. This assay has been cleared by the [place] Food and Drug Administration and its performance characteristics have been verified by the [facility]biology Laboratory. For questions about this culture, contact the Microbiology Laboratory at [phone]. Interpretive data was last revised on 24. Cole Epperson MD LAB MICROBIOLOGY - GEN ERAL ORDERABLES Final Result [facility] Department [place] [address] * Blood culture Blood Peripheral (05/12/2024 6:05 AM DIRECTOR OF EMPLOYER SERVICES) Report Final Report: No growth Blood (Peripheral) 05/12/2024 6:05 AM DIRECTOR OF EMPLOYER SERVICES 05/12/2024 6:26 AM DIRECTOR OF EMPLOYER SERVICES Narrative KAMINI ACOSTA - 05/16/2024 7:00 AM DIRECTOR OF EMPLOYER SERVICES Draw Blood cultures before administration of Antibiotics Collection->Peripheral 1. ?Blood cultures are incubated for 4 days on a continuously monitored blood culture system. The first report of a negative culture is issued within 24 hours of receipt of the specimen in the laboratory. 2. ?Positive culture results are reported as soon as they are detected. 3. ?The most important factor for detection of microbes in the setting of bloodstream infection is the volume of blood submitted for culture. Failure to collect an optimal blood volume can result in false negative blood cultures. 4. ? For pediatric patients, the recommended blood volume to collect follows a weight based strategy. See the electronic test catalog for collection instructions. 5. ?For positive blood cultures, a rapid molecular test may be performed for organism identification using the [facility] ePlex blood culture identification panel for gram positive (BCID-GP) and gram negative (BCID-GN) organisms. This nucleic acid amplification test detects microbial DNA in positive blood culture broth. This assay has been cleared by the [place] Food and Drug Administration and its performance characteristics have been verified by the [facility]biology Laboratory. For questions about this culture, contact the Microbiology Laboratory at [phone]. Interpretive data was last revised on 24. Cole Epperson MD LAB MICROBIOLOGY - GEN ERAL ORDERABLES Final Result Performing Organization Address City/[facility]/ZIP Co de Phone Number [facility] Department [place] [address] * (ABNORMAL) Erythrocyte sedimentation rate (05/12/2024 6:05 AM DIRECTOR OF EMPLOYER SERVICES) Erythrocyte sedimentation rate 16(H) 1 - 15 mm/hr Blood 05/12/2024 6:05 AM DIRECTOR OF EMPLOYER SERVICES 05/12/2024 6:16 AM DIRECTOR OF EMPLOYER SERVICES Cole Epperson MD LAB BLOOD ORDERABLES F inal Result Performing Organization Address [facility]/[place] Co de Phone Number [facility] Department [place] [address] * CRP (acute phase) (05/12/2024 6:05 AM DIRECTOR OF EMPLOYER SERVICES) Pathologist [facility] CRP 9.9 <=10.0 mg/L Blood 05/12/2024 6:05 AM DIRECTOR OF EMPLOYER SERVICES 05/12/2024 6:16 AM DIRECTOR OF EMPLOYER SERVICES Cole Epperson MD LAB BLOOD ORDERABLES F inal Result [facility] Department [place] [address] * Comprehensive metabolic panel (05/12/2024 6:05 AM DIRECTOR OF EMPLOYER SERVICES) Pathologist [facility] Sodium 138 135 - 145 mmol/L Potassium, pl 3.8 3.3 - 4.9 mmol/L [facility] Chloride 101 97 - 110 mmol/L [facility] CO2 27 22 - 32 mmol/L [facility] Anion gap 10 2 - 15 mmol/L [facility] BUN 16 6 - 25 mg/dL [facility] Creatinine 0.90 0.80 - 1.30 mg/dL [facility] Glucose 93 70 - 199 mg/dL [facility] Comment: Interpretive Data Fasting glucose >/= 126 mg/dl is diagnostic for diabetes. ?? Fasting is defined as no caloric intake for at least 8 hours. Fasting glucose between 100 mg/dl to 125 mg/dl is diagnostic of prediabetes. In a patient with classic symptoms of hyperglycemia or hyperglycemic crisis, a random glucose >/= 200 mg/dl is diagnostic for diabetes. In the absence of unequivocal hyperglycemia, results should be confirmed by repeat testing. The classification and Diagnosis of Diabetes Diabetes Care 2021; 46: S19-S40. Current interpretive data was last revised 2022. Calcium 9.7 8.5 - 10.3 mg/dL [facility] Bilirubin, total 0.3 0.1 - 1.2 mg/dL [facility] Protein, pl 7.2 6.5 - 8.5 g/dL [facility] Albumin 4.3 3.5 - 5.0 g/dL [facility] Alk phos 67 40 - 130 Units/L [facility] ALT 40 7 - 55 Units/L [facility] AST 40 10 - 50 Units/L [facility] Blood 05/12/2024 6:05 AM DIRECTOR OF EMPLOYER SERVICES 05/12/2024 6:16 AM DIRECTOR OF EMPLOYER SERVICES Cole Epperson MD LAB BLOOD ORDERABLES F inal Result [facility] Department [place] [address] * XR Finger 2nd Index Left (04/30/2024 2:29 PM DIRECTOR OF EMPLOYER SERVICES) Anatomical Region Laterality Modality Upper Extremities, Hand, Fingers Left Computed Radiography 04/30/2024 3:04 PM DIRECTOR OF EMPLOYER SERVICES Narrative 04/30/2024 3:05 PM DIRECTOR OF EMPLOYER SERVICES EXAM DESCRIPTION: XR FINGER 2ND INDEX LEFT REASON FOR STUDY: wound ?? Patient ambulatory to triage with complaint of laceration to L index finger that is now swollen. States he accidentally cut is with a utility knife 1-2 days ago. States that he is not up to date on tetanus shot. ? TECHNIQUE: 3 ??radiographic view(s) of the ??left 2nd digit . COMPARISON: None FINDINGS: No fracture or dislocation is seen. ??There is soft tissue swelling about the 2nd digit. ??There is dorsal skin defect over the proximal interphalangeal joint. ??There is no radiopaque foreign body. IMPRESSION: No acute osseous abnormality. Soft tissue swelling with skin defect. No radiopaque foreign body. THIS IS AN ELECTRONICALLY VERIFIED FINAL REPORT 04/30/2024 3:05 PM - Electronically signed by ??Wilver Morales M.D. JR: D: ??04/30/2024 3:05 PM T: ??04/30/2024 3:05 PM Report ID: [id number] Reading Location: ??[id number] Procedure Note Wilver Morales MD - 04/30/2024 EXAM DESCRIPTION: XR FINGER 2ND INDEX LEFT REASON FOR STUDY: wound Patient ambulatory to triage with complaint of laceration to L indexfinger that is now swollen. States he accidentally cut is with a utility knife1-2 days ago. States that he is not up to date on tetanus shot. TECHNIQUE: 3 radiographic view(s) of the left 2nd digit . COMPARISON: None FINDINGS: No fracture or dislocation is seen. There is soft tissue swelling aboutthe 2nd digit. There is dorsal skin defect over the proximal interphalangeal joint. There is no radiopaque foreign body. IMPRESSION: No acute osseous abnormality. Soft tissue swelling with skin defect. No radiopaque foreign body. THIS IS AN ELECTRONICALLY VERIFIED FINAL REPORT 04/30/2024 3:05 PM - Electronically signed by Wilver Morales M.D. JR: Report ID: [id number] Reading Location: [place] [address] Peter Marshall MD IMG XR PROCEDURES Final Resu lt * Hepatitis panel, acute (09/27/2019 1:01 PM CDT) Hep A IgM Nonreactive Nonreactive [facility] Comment: Interpretive Data: If Hep A IgM Ab is reported as Equivocal, a new sample should be drawn in two weeks for testing. Current interpretive data was last revised on 19. Testing performed by: [facility], [address] [place] [address], [place] [address] Hep B core IgM Nonreactive Nonreactive [facility] ([place]) Comment: Interpretive Data If HepB Core IgM Ab is reported as Equivocal, a new sample should be drawn in two weeks for testing. Current interpretive data was last revised on 19. Testing performed by: [facility], [address] [place] [address], [place] [address] Hep C Ab Nonreactive Nonreactive [facility] ([place]) Comment: Interpretive Data Nonreactive: Antibodies to HCV not detected. Does NOT exclude the possibility of recent exposure to HCV. Equivocal: Equivocal for HCV antibodies. Supplemental molecular testing will be automatically performed to determine infection status in accordance with current CDC screening recommendations. ?? Reactive: Positive for HCV antibodies. ??This may represent current or past HCV infection. Supplemental molecular testing will be automatically performed to determine ??current infection status in accordance with current CDC screening recommendations. Interpretive data was last revised on 2019. Testing performed by: [facility], [address] [place] [address]., [id number] HepBsAg Nonreactive Nonreactive [facility]) Comment:Testing performed by : [facility], [address] [place] [address]., [id number] Blood specimen (specimen) 09/27/2019 1:01 PM CDT 09/27/2019 7:26 PM CDT Quinn Cota MD LAB MICROBIOLOGY - GENERAL TISHA WOODALL Final Result [facility] Department [place] [address] from Last 3 Months or Most Recently Relevant to Health Maintenance Additional Health Concerns Infection Onset Date Last Indicated MRSA Comment:Added from external infection. Source: [facility]. Last positive 05/05/24 Madeleine Kirby RN 05/04/2024 05/12/[address] [place] [address] Advance Directives For more information, please contact: [phone] * Full Code (Latest Code Status on File) Date Activated Date Inactivated Comments 05/26/2024 11:46 AM 05/28/2024 7:35 PM * Full Code Date Activated Date Inactivated Comments 05/12/2024 8:40 PM 05/19/2024 8:19 PM Care Teams Personal Property Appraiser Relationship Specialty Start Date End Date No, Physician PCP - General 06/07/24 Ashley Woodward MD Internal Medicine 06/07/24 Ashley Woodward MD 08/06/23
--- OUTSIDE RECORDS SUMMARY | 2024-07-04 16:49 | XMS_ITS | Clinical Summary ---
Author Organization [facility] Address [address] [place] [address]. [place] [address] [place] [address] Care Team Providers Care Customer Service Cashier Name Role Phone Unavailable Primary Care Provider Unavailabl e Allergies No known active allergies Encounters Date Type Department Care Team Description 06/23/2024 3:34 AM MEDICAL STAFFING COORDINATOR - 06/23/2024 3:35 AM MEDICAL STAFFING COORDINATOR Emergency [facility] [place] [address] Olamide Disla MD Medical Screening Discharge Disposition: Correctional Facility or Police Custody from Last 3 Months Social History Tobacco Use Types Packs/Day Years Used Date Smoking Tobacco: Every Day Cigarettes Smokeless Tobacco: Never Tobacco Cessation:Ready to Q uit: Not Asked; Counseling Given: Not Answered Alcohol Use Standard Drinks/Week Comments Yes 0 (1 standard drink = 0.6 oz pur e alcohol) everyday Sex and Gender Information Value Date Recorded Sex Assigned at Not on file Legal Sex Male 2:43 AM MEDICAL STAFFING COORDINATOR Gender Identity Not on file Sexual Orientation Not on file Last Filed Vital Signs Vital Sign Reading Time Taken Comments Blood Pressure 116/69 06/23/2024 3:06 AM MEDICAL STAFFING COORDINATOR Pulse 70 06/23/2024 3:06 AM MEDICAL STAFFING COORDINATOR Temperature 36.7 ??C (98.1 ??F) 06/23/2024 3:06 AM CS T Respiratory Rate 18 06/23/2024 3:06 AM MEDICAL STAFFING COORDINATOR Oxygen Saturation 99% 06/23/2024 3:06 AM MEDICAL STAFFING COORDINATOR Inhaled Oxygen Concentration - - Weight 77.1 kg (170 lb) 06/23/2024 3:06 AM MEDICAL STAFFING COORDINATOR Height 177.8 cm (5' 10 ) 06/23/2024 3:06 AM MEDICAL STAFFING COORDINATOR Body Mass Index 24.39 06/23/2024 3:06 AM MEDICAL STAFFING COORDINATOR Plan of Treatment Health Maintenance Due Date Last Done Comments Annual Physical 12/18/1987 Hepatitis C 2002 DTaP, Tdap and Td Vaccines ( 1 - Tdap) 12/18/2003 Hepatitis B Vaccines (1 of 3 - 19+ 3-dose series) 12/18/2003 COVID-19 Vaccine (2023-2 5 season) 2024 Influenza Adult (#1) 2024 HPV Vaccines Aged Out No longer eligi ble based on patient's age to complete this topic Meningococcal B Vaccine Aged Out No l onger eligible based on patient's age to complete this topic Meningococcal Vaccine Aged Out No antonio adry eligible based on patient's age to complete this topic Pneumococcal Vaccine: Pediat rics (0 to 5 Years) and At-Risk Patients (6 to 64 Years) Aged Out No longer eligible b ased on patient's age to complete this topic RSV Immunizations Under 20 Months Aged Out No longer eligible based on patient's age to complete this topic Insurance [place]
--- OUTSIDE RECORDS SUMMARY | 2024-07-04 16:49 | XMS_ITS | Clinical Summary ---
Author Organization [facility] Address [address] [place] [address] Phone Care Team Providers Care Survey Associate Name Role Phone Unavailable Primary Care Provider Unavailabl e Allergies Active Allergy Reactions Criticality Noted Date Comments Penicillins Unknown 05/23/2024 Medications divalproex (DEPAKOTE) 500 mg delayed release tablet Take 1,000 mg by mouth 2 times daily. 05/05/2024 Active levETIRAcetam (KEPPRA) 1,000 mg tablet Take 1,000 mg by mouth 2 times daily. 05/05/2024 Active sulfamethoxazol e-trimethoprim (BACTRIM DS) 800-160 mg tablet Take 1 Tablet by mouth 2 times daily. 06/15/2024 Encounters Date Type Department Care Team Description 06/22/2024 5:10 PM [facility] - 06/22/2024 5:50 PM [facility] Emergency Department [address] [place] [address] Eleazar Davila DO Hungry, initial encounter (Primary Dx) Discharge Disposition: Home or Self Care 06/22/2024 Travel 06/17/2024 7:38 AM [facility] - 06/17/2024 8:22 AM [facility] Emergency Department [address] [place] [address] Wilver Joel DO Homelessness (Primary Dx); Refused assessment of physical health Discharge Disposition: Home or Self Care 06/17/2024 Travel 06/17/2024 - 06/17/2024 5:51 AM [facility] Emergency Department [address] [place] [phone] Discharge Disposition: Left without being seen 06/16/2024 6:26 PM CUSTOMER CARE MANAGER - 06/16/2024 8:14 PM CUSTOMER CARE MANAGER Emergency [facility] Emergency Department [address] [place] [address] Vinny Munoz MD Housing insecurity (Primary Dx) Discharge Disposition: Home or Self Care 05/23/2024 2:19 PM CUSTOMER CARE MANAGER - 05/23/2024 6:42 PM CUSTOMER CARE MANAGER Emergency [facility] Emergency Department [address] [place] [phone] Lucas Rosa MD Homeless (Primary Dx); Other schizoaffective disorders (CMS/HCC) Discharge Disposition: Home or Self Care 05/23/2024 Travel from Last 3 Months Social History Tobacco Use Types Packs/Day Years Used Date Smoking Tobacco: Every Day Cigarettes Smokeless Tobacco: Never Tobacco Cessation:Ready to Q uit: Not Asked; Counseling Given: Not Answered Alcohol Use Standard Drinks/Week Comments Yes 0 (1 standard drink = 0.6 oz pur e alcohol) Feeling Safe Answer Date Recorded Are you in a relationship wi th someone who hurts you emotionally and/or physically? No 06/22/2024 Sex and Gender Information Value Date Recorded Sex Assigned at Not on file Legal Sex Male 9:40 PM CUSTOMER CARE MANAGER Gender Identity Not on file Sexual Orientation Not on file Last Filed Vital Signs Vital Sign Reading Time Taken Comments Blood Pressure 126/72 06/22/2024 5:12 PM CUSTOMER CARE MANAGER Pulse 83 06/22/2024 5:12 PM CUSTOMER CARE MANAGER Temperature 36.6 ??C (97.9 ??F) 06/22/2024 5:12 PM CS T Respiratory Rate 16 06/22/2024 5:12 PM CUSTOMER CARE MANAGER Oxygen Saturation 99% 06/22/2024 5:12 PM CUSTOMER CARE MANAGER Inhaled Oxygen Concentration - - Weight 77.1 kg (170 lb) 06/22/2024 5:12 PM CUSTOMER CARE MANAGER Height 177.8 cm (5' 10 ) 06/22/2024 5:12 PM CUSTOMER CARE MANAGER Body Mass Index 24.39 06/22/2024 5:12 PM CUSTOMER CARE MANAGER Plan of Treatment Health Maintenance Due Date Last Done Comments HEPATITIS B VACCINES (1 of 3 - 19+ 3-dose series) 12/18/2003 Preventative Visit-Managed Medicaid 12/18/2003 INFLUENZA VACCINE (#1) 2024 9, 04/21/2016 DTAP/TDAP/TD VACCINES (2 - T d or Tdap) 04/30/2034 04/30/2024 HPV VACCINES Aged Out No longer eligi ble based on patient's age to complete this topic Procedures Procedure Name Priority Date/Time Associated Diagnosis Comments ETHANOL LEVEL Stat 05/23/2024 2:57 PM CUSTOMER CARE MANAGER COMPREHENSIVE METABOLIC PANEL Stat 05/23/2024 2:57 PM CUSTOMER CARE MANAGER CBC WITH DIFFERENTIAL Stat 05/23/2024 2:57 PM CUSTOMER CARE MANAGER from Last 3 Months Results * (ABNORMAL) CBC WITH DIFFERENTIAL (05/23/2024 2:57 PM CUSTOMER CARE MANAGER) WBC 9.0 4.0 - 9.8 K/uL 05/23/2024 3:29 PM CUSTOMER CARE MANAGER [facility] RBC 4.14(L) 4.50 - 5.40 M/uL 05/23/2024 3:29 PM CUSTOMER CARE MANAGER [employer] [facility] HEMOGLOBIN 12.6(L) 13.6 - 16.5 g/dL 05/23/2024 3:29 PM CUSTOMER CARE MANAGER [facility] HEMATOCRIT 37.1(L) 40.0 - 48.0 % 05/23/2024 3:29 PM CUSTOMER CARE MANAGER [facility] MCV 89.6 82.0 - 99.0 fL 05/23/2024 3:29 PM CUSTOMER CARE MANAGER [facility] MCH 30.4 27.2 - 32.6 pg 05/23/2024 3:29 PM CUSTOMER CARE MANAGER [employer] [facility] MCHC 34.0 31.5 - 35.5 g/dL 05/23/2024 3:29 PM CUSTOMER CARE MANAGER [employer] [facility] RDW 12.0 11.5 - 14.5 % 05/23/2024 3:29 PM CUSTOMER CARE MANAGER [employer] [facility] RDW-STDEV 39.1 37.1 - 48.7 fL 05/23/2024 3:29 PM CUSTOMER CARE MANAGER [employer] [facility] PLATELETS 369(H) 140 - 350 K/uL 05/23/2024 3:29 PM [facility] [employer] [facility] MPV 9.7 9.3 - 12.4 fL 05/23/2024 3:29 PM [facility] [employer] [facility] NEUTROPHILS 64 % 05/23/2024 3:29 PM [facility] [facility] LYMPHOCYTES 24 % 05/23/2024 3:29 PM CUSTOMER CARE MANAGER [employer] [facility] MONOCYTES 9 % 05/23/2024 3:29 PM CUSTOMER CARE MANAGER [facility] EOSINOPHILS 3 % 05/23/2024 3:29 PM CUSTOMER CARE MANAGER [facility] BASOPHILS 1 % 05/23/2024 3:29 PM [facility] [employer] [facility] IMMATURE GRANULOCYTES 0 % 05/23/2024 3:29 PM [facility] NEUTROPHIL ABSOLUTE 5.71 1.90 - 7.00 K/uL 05/23/2024 3:29 PM [facility] [employer] [facility] LYMPHOCYTE ABSOLUTE 2.11 0.70 - 4.50 K/uL 05/23/2024 3:29 PM CUSTOMER CARE MANAGER [employer] [facility] MONOCYTE ABSOLUTE 0.77 0.10 - 1.30 K/uL 05/23/2024 3:29 PM [facility] [employer] [facility] EOSINOPHIL ABSOLUTE 0.27 0.00 - 0.70 K/uL 05/23/2024 3:29 PM [facility] [employer] [facility] BASOPHILS ABSOLUTE 0.06 0.00 - 0.20 K/uL 05/23/2024 3:29 PM CUSTOMER CARE MANAGER [employer] [facility] IMMATURE GRANULOCYTES ABSOLUTE 0.04(H) 0.00 - 0.03 K/uL 05/23/2024 3:29 PM [facility] [employer] [facility] Blood Venipuncture / Unknown 05/23/2024 2:57 PM CUSTOMER CARE MANAGER 05/23/2024 3:29 PM CUSTOMER CARE MANAGER Lucas Rosa MD HEMATOLOGY ORDERABLES Final Re sult [employer] [facility] [facility] [id number] [address] [place] [address] * ETHANOL LEVEL (05/23/2024 2:57 PM CUSTOMER CARE MANAGER) Pathologist [facility] Emergency Department ETHANOL <10.10 <10.10 mg/dL 05/23/2024 3:55 PM CUSTOMER CARE MANAGER [employer] ETHANOL % <0.01 %w/v 05/23/2024 3:55 PM [facility] [employer] [facility] Blood Venipuncture / Unknown 05/23/2024 2:57 PM CUSTOMER CARE MANAGER 05/23/2024 3:07 PM CUSTOMER CARE MANAGER Lucas Rosa MD CHEMISTRY ORDERABLES Final Res ult [facility] [id number] [address] [place] [address] * (ABNORMAL) COMPREHENSIVE METABOLIC PANEL (05/23/2024 2:57 PM CUSTOMER CARE MANAGER) Pathologist [facility] Emergency Department SODIUM 135(L) 136 - 145 mmol/L 05/23/2024 3:55 PM CUSTOMER CARE MANAGER [employer] [facility] POTASSIUM 3.9 3.5 - 5.0 mmol/L 05/23/2024 3:55 PM CUSTOMER CARE MANAGER [employer] [facility] CHLORIDE 100 98 - 107 mmol/L 05/23/2024 3:55 PM CUSTOMER CARE MANAGER [employer] [facility] - . [facility] CO2 26 22 - 29 mmol/L 05/23/2024 3:55 PM CUSTOMER CARE MANAGER [employer] [facility] - . [facility] CALCIUM 9.7 8.6 - 10.2 mg/dL 05/23/2024 3:55 PM CUSTOMER CARE MANAGER [employer] [facility] BUN 23(H) 6 - 20 mg/dL 05/23/2024 3:55 PM CUSTOMER CARE MANAGER [employer] [facility] - . [facility] CREATININE 0.76 0.67 - 1.17 mg/dL 05/23/2024 3:55 PM CUSTOMER CARE MANAGER [employer] [facility] GLUCOSE 84 74 - 99 mg/dL 05/23/2024 3:55 PM [facility] TOTAL PROTEIN 7.6 6.7 - 8.6 g/dL 05/23/2024 3:55 PM [facility] ALBUMIN 4.5 3.5 - 5.2 g/dL 05/23/2024 3:55 PM [facility] BILIRUBIN TOTAL 0.3 0.3 - 1.2 mg/dL 05/23/2024 3:55 PM [facility] ALKALINE PHOSPHATASE 68 40 - 129 U/L 05/23/2024 3:55 PM [facility] AST 84(H) <41 U/L 05/23/2024 3:55 PM [facility] - . [facility] ALT 63(H) <42 U/L 05/23/2024 3:55 PM [facility] GFR >60 >=60 mL/min/1.7 3 sq meter 05/23/2024 3:55 PM [facility] Comment:eGFR calculated with 2020 CKD-EPI equation. Vegetarian diet, extremely high or low muscle mass, and may affect results. Cystatin C with Glomerular Filtration Rate is a suitable alternative for these patients. ANION GAP 9 8 - 16 mmol/L 05/23/2024 3:55 PM [facility] Blood Venipuncture / Unknown 05/23/2024 2:57 PM CUSTOMER CARE MANAGER 05/23/2024 3:07 PM CUSTOMER CARE MANAGER Narrative [facility] - 05/23/2024 3:55 PM CUSTOMER CARE MANAGER Samples containing indocyanine green cause interferences on Total and/or Direct Bilirubin and must not be measured. us Lucas Rosa MD CHEMISTRY ORDERABLES Final Res ult [facility] [id number] [address] [address] from Last 3 Months Insurance [place]ICA[place]
--- OUTSIDE RECORDS SUMMARY | 2024-07-04 16:49 | XMS_ITS | Encounter Summary ---
Author Organization [facility] Address [address] [place] [address] Care Team Providers Care Notary Public Name Role Phone Ashley Woodward MD Primary Care Provider None, Physician Primary Care Provider Unavailabl e Encounter Details Date Type Department Care Team (Late Contact Info) Description 11/29/2021 Telephone [facility] [address] [place] [address] Anupam Genao MD [address] [place] [phone] Social History Tobacco Use Types Packs/Day Years Used Date Smoking Tobacco: Every Day Cigarettes Smokeless Tobacco: Former Snuff Alcohol Use Standard Drinks/Week Comments Yes 0 (1 standard drink = 0.6 oz pur e alcohol) Sex and Gender Information Value Date Recorded Sex Assigned at Not on file Gender Identity Not on file Sexual Orientation Not on file documented as of this encounter Patient Instructions * Patient Instructions* Krishna Ponce - 11/29/2021 9:36 AM CDT Pt had some seizures and needs his Klonipin refilled documented in this encounter Plan of Treatment Upcoming Encounters Date Type Department Care Team (Late Contact Info) Description 11/15/2024 3:00 PM CDT Office Visit [facility] - Neurology [address] [place] [address] [place] [phone] Anupam Genao MD [address] [place] [phone] documented as of this encounter Visit Diagnoses Not on filedocumented in this encounter Care Teams Notary Public Relationship Specialty Start Date End Date Ashley Woodward MD [address] [place] [phone] PCP - General 12/22/17 06/26/24 None, Physician PCP - General 06/27/24 documented as of this encounter
--- OUTSIDE RECORDS SUMMARY | 2024-07-04 16:49 | XMS_ITS | CONTINUITY OF CARE DOCUMENT ---
Author Name eduardo clark Address Unknown Organization [facility] [address] Address [address] [place] [address] Phone [phone] Care Team Providers Care Ross Carrier Driver Name Role Phone Jasper MORALES, Ivonne Unavailable [phone] LINDSAY CANTRELL MD Unavailable [phone] INSURANCE PROVIDERS Payer name Policy type / Coverage type [employer] [employer] [employer] Medicaid 1 [id number]
--- OUTSIDE RECORDS SUMMARY | 2024-07-04 16:49 | XMS_ITS | Clinical Summary ---
Author Organization [facility] Address [address] [place] [address] Care Team Providers Care Reliability Technologist Name Role Phone None, Physician Primary Care Provider Unavailabl e Source Comments [facility],non-owned Affiliates and Associated Physician Practices is amultiple site organization consisting of ambulatory clinics and hospital sitesin [place], [place], [place] and [place]. This disclosure is being madepursuant to the Care Everywhere program and may not contain all information available regarding this patient. Last updated 18.[facility] Allergies Active Allergy Reactions Criticality Noted Date Comments Penicillin G Unknown 07/21/2015 Medications * Be aware that medications may not be up to date on this document. Alwaysverify current medications with the patient. Medication Sig Dispensed Refills Start Date End Date Status busPIRone (BUSPAR) 5 MG tablet 03/14/2021 Active gabapentin (Neurontin) 300 MG capsule Take 1 (one) capsule by mouth 3 times daily 05/29/2024 Active ibuprofen (Motrin) 400 MG tablet Take 1 (one) tablet by mouth every 6 hours as needed 06/10/2024 Active levETIRAcetam (Keppra) 500 MG tablet Take 2 (two) tablets by mouth 2 times daily 30 tablet 06/27/[address] (Depakote) 500 MG tablet Take 1 (one) tablet by mouth 2 times daily 60 tablet 06/27/2024 Active carBAMazepine ER 12hr (Carbatrol) 200 MG capsule Take 1 (one) capsule by mouth every 12 hours 60 capsule 06/27/2024 Active doxepin (SINEQUAN) 100 MG capsule Take 2 (two) capsules by mouth 01/29/2016 06/13/2024 Discontinued (List Clean-Up) haloperidol (HALDOL) 5 MG tablet Take 1 (one) tablet by mouth 2 times daily 01/29/2016 06/13/2024 Discontinued (List Clean-Up) QUEtiapine (SEROQUEL) 400 MG tablet Take 2 (two) tablets by mouth 01/29/2016 06/13/2024 Discontinued (List Clean-Up) divalproex ER 24hr (Depakote ER) 500 MG tabletIndications :Partial symptomatic epilepsy with complex partial seizures, intractable, without status epilepticus (HCC) Take 1 tablet in the morning, and 2 tablets at night 180 tablet 3 03/25/2022 06/13/2024 Discontinued (List Clean-Up) carBAMazepine XR 12hr (TEGretol XR) 400 MG tabletIndications :Partial symptomatic epilepsy with complex partial seizures, intractable, without status epilepticus (HCC) Take 1 (one) tablet by mouth 2 times daily 180 tablet 3 06/30/2023 06/13/2024 Discontinued (List Clean-Up) levETIRAcetam (Keppra) 1000 MG tabletIndications :Partial symptomatic epilepsy with complex partial seizures, intractable, without status epilepticus (HCC) Take 2 (two) tablets by mouth 2 times daily 360 tablet 3 06/30/2023 06/13/2024 Discontinued (List Clean-Up) pyridoxine (Vitamin B-6) 100 MG tabletIndications :Partial symptomatic epilepsy with complex partial seizures, intractable, without status epilepticus (HCC),Pyridoxine deficiency Take 1 (one) tablet by mouth once daily 90 tablet 3 06/30/2023 06/13/2024 Discontinued (List Clean-Up) clonazePAM (KlonoPIN) 1 MG tabletIndications :Partial symptomatic epilepsy with complex partial seizures, intractable, without status epilepticus (HCC) Take 1 tablet by mouth twice daily 60 tablet 5 01/05/2024 06/13/2024 Discontinued (List Clean-Up) mupirocin (Bactroban) 2 % ointment Apply to affected area 3 times daily 22 g 05/22/2024 06/13/2024 Discontinued (List Clean-Up) OLANZapine (ZyPREXA) 10 MG tablet Take 1 (one) tablet by mouth at bedtime 05/28/2024 06/13/2024 Discontinued (List Clean-Up) sulfamethoxazole- trimethoprim (Bactrim DS; Septra DS) 800-160 MG tablet Take 1 (one) tablet by mouth 2 times daily for 7 days 14 tablet 06/15/2024 06/22/2024 Active Problems Problem Noted Date Diagnosed Date Homeless 06/11/2024 Partial symptomatic epilepsy with complex partial seizures, intractable, without status epilepticus 01/15/2019 Elevated blood pressure 04/25/2016 06/30/19 24 Intracranial hemorrhage 04/25/2016 06/30/19 24 AVM (arteriovenous malformation) brain 6 06/30/2023 AVM (arteriovenous malformation) 12/20/2015 06/30/2023 Bipolar 1 disorder 11/05/2015 06/30/2023 Seizure 11/05/2015 06/30/2023 Encounters Date Type Department Care Team Description 06/27/2024 3:23 AM [facility] - 06/27/2024 12:20 PM [facility] Emergency [facility] EMERGENCY DEPARTMENT [address] [place] [phone] Shama Hutchins MD Traumatic injury of head, initial encounter (Primary Dx); Laceration of scalp, initial encounter; Seizure disorder (HCC); S/P coil embolization of cerebral aneurysm Discharge Disposition: Home or Self Care 06/27/2024 Travel 06/21/2024 10:46 PM HOUSE COORDINATOR - 06/21/2024 11:30 PM [facility] Emergency ER at [address] [address] Discharge Disposition: Left Against Medical Advice/Discontinued Care 06/20/2024 2:16 AM HOUSE COORDINATOR - 06/20/2024 5:44 AM [facility] Emergency [facility] EMERGENCY DEPARTMENT [address] [place] [phone] Main Santos MD Left hand pain (Primary Dx) Discharge Disposition: Home or Self Care 06/20/2024 Travel 06/18/2024 12:50 AM [facility] - 06/18/2024 1:23 AM [facility] Emergency ER at [address] [address] Sarabjit León MD Discharge Disposition: ED Dismiss - Never Arrived 06/17/2024 9:35 AM HOUSE COORDINATOR - 06/17/2024 12:46 PM HOUSE COORDINATOR Emergency ER at [address] [address] James Ogden MD Acute alcoholic intoxication without complication (HCC) (Primary Dx) Discharge Disposition: Left Against Medical Advice/Discontinued Care 06/17/2024 - 06/18/2024 12:41 AM HOUSE COORDINATOR Emergency ER at [address] [address] 06/16/2024 12:34 PM HOUSE COORDINATOR - 06/16/2024 3:34 PM HOUSE COORDINATOR Emergency ER at [address] [address] Nelson Bruce DO Housing instability; Schizoaffective disorder, unspecified type (HCC) Discharge Disposition: Home or Self Care 06/16/2024 Travel 06/15/2024 8:17 AM HOUSE COORDINATOR - 06/15/2024 9:49 AM HOUSE COORDINATOR Emergency ER at [address] [address] Shravan Campoverde MD Housing instability Discharge Disposition: Home or Self Care 06/15/2024 12:11 AM HOUSE COORDINATOR - 06/15/2024 2:10 AM HOUSE COORDINATOR Emergency ER at [address] [address] Amber Macdonald MD Hodges, Harlan D, MD Left hand pain Discharge Disposition: Home or Self Care 06/14/2024 4:06 PM HOUSE COORDINATOR - 06/14/2024 5:12 PM HOUSE COORDINATOR Emergency ER at [address] [address] Nelson Bruce DO Malingering Discharge Disposition: Home or Self Care 06/14/2024 Travel 06/13/2024 12:12 PM HOUSE COORDINATOR - 06/13/2024 1:29 PM [facility] Emergency [facility] EMERGENCY DEPARTMENT [address] [place] [phone] Toribio Ayers MD Homelessness (Primary Dx); Open wound of left hand without foreign body, unspecified wound type, initial encounter Discharge Disposition: Home or Self Care 06/13/2024 3:30 AM HOUSE COORDINATOR - 06/13/2024 4:33 AM [facility] Emergency [facility] EMERGENCY DEPARTMENT [address] [place] [phone] Shahid Patterson MD Homelessness Discharge Disposition: Home or Self Care 06/13/2024 Travel 06/12/2024 10:33 AM HOUSE COORDINATOR - 06/12/2024 1:07 PM [facility] Emergency [facility] EMERGENCY DEPARTMENT [address] [place] [phone] Toribio Ayers MD Cold exposure, initial encounter; Hungry, initial encounter; Homeless Discharge Disposition: Home or Self Care 06/11/2024 10:34 AM HOUSE COORDINATOR - 06/11/2024 12:27 PM [facility] Emergency [facility] EMERGENCY DEPARTMENT [address] [place] [phone] Shivani Mccall MD Tired (Primary Dx); Homeless; Normocytic anemia Discharge Disposition: Home or Self Care 06/11/2024 Travel 05/22/2024 8:04 PM HOUSE COORDINATOR - 05/23/2024 9:29 AM [facility] Emergency ER at [address] [address] Talia Becker MD Majino, Angela R, MD Bipolar affective disorder, remission status unspecified (HCC) (Primary Dx); Agitation requiring sedation protocol; Polysubstance abuse (HCC); Noncompliance with treatment Discharge Disposition: Home or Self Care 05/22/2024 12:41 AM HOUSE COORDINATOR - 05/22/2024 3:07 AM [facility] Emergency ER at [address] [id number] Shravan Campoverde MD Encounter for medication refill; 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 (F LUZONE; FLULAVAL; FLUARIX; AFLURIA QUADRIVALENT; 6MO+), 0.5 ML (IIV4) 05/11/2019 Social History Tobacco Use Types Packs/Day Years Used Date Smoking Tobacco: Every Day Cigarettes Smokeless Tobacco: Former Snuff Alcohol Use Standard Drinks/Week Comments Yes 0 (1 standard drink = 0.6 oz pur e alcohol) AUDIT-C Answer Date Recorded Q1: How often do you have a drink containing alc ohol? Never 05/23/2024 Q2: How many drinks containi ng alcohol do you have on a typical day when you are drinking? Patient declined 05/23/2024 Q3: How often do you have si x or more drinks on one occasion? Patient declined 05/23/2024 PHQ-2 Answer Date Recorded Patient Health Questionnaire-2 Score 3 06/15/2024 Sex and Gender Information Value Date Recorded Sex Assigned at Not on file Gender Identity Not on file Sexual Orientation Not on file Last Filed Vital Signs Vital Sign Reading Time Taken Comments Blood Pressure 120/84 06/27/2024 12:19 PM HOUSE COORDINATOR Pulse 89 06/27/2024 12:19 PM HOUSE COORDINATOR Temperature 36.8 ??C (98.2 ??F) 06/27/2024 3:26 AM CS T Respiratory Rate 16 06/27/2024 12:19 PM HOUSE COORDINATOR Oxygen Saturation 97% 06/27/2024 12:19 PM HOUSE COORDINATOR Inhaled Oxygen Concentration - - Weight 81.6 kg (180 lb) 06/20/2024 1:22 AM HOUSE COORDINATOR Height 177.8 cm (5' 10 ) 06/20/2024 1:22 AM HOUSE COORDINATOR Body Mass Index 25.83 06/20/2024 1:22 AM HOUSE COORDINATOR Plan of Treatment Upcoming Encounters Date Type Department Care Team (Late st Contact Info) Description 11/15/2024 3:00 PM CDT Office Visit [facility] - Neurology [address] [place] [address], [place] [phone] Anupam Genao MD [address] [place] [address] [place] [phone] Health Maintenance Due Date Last Done Comments HIV SCREENING 12/18/1999 HEPATITIS C SCREENING 12/13/2002 DTAP/TDAP/TD VACCINES (1 - Tdap) 12/18/2003 HEPATITIS B VACCINE (1 of 3 - 19+ 3-dose series) 12/18/2003 PNEUMOCOCCAL VACCINE (1 of 2 - PCV) 12/18/2003 COVID-19 VACCINE (1 - 2023-2 5 season) 2024 INFLUENZA VACCINE (#1) 2024 9, 05/11/2019, 04/21/2016 ZOSTER VACCINE (1 of 2) 2034 HIB VACCINE Aged Out No longer eligi ble based on patient's age to complete this topic HPV VACCINE Aged Out No longer eligi ble based on patient's age to complete this topic MENINGOCOCCAL (Group B) VACCINE Aged Out No longer eligible b ased on patient's age to complete this topic MENINGOCOCCAL VACCINE Aged Out No antonio adry eligible based on patient's age to complete this topic Procedures Procedure Name Priority Date/Time Associated Diagnosis Comments LEVETIRACETAM LEVEL STAT 06/27/2024 4 :55 AM HOUSE COORDINATOR CARBAMAZEPINE LEVEL TOTAL STAT 06/27/2024 4:55 AM HOUSE COORDINATOR VALPROIC ACID LEVEL STAT 06/27/2024 4 :55 AM HOUSE COORDINATOR TEG 6S PLATELET MAPPING STAT 06/27/19 4:55 AM HOUSE COORDINATOR TEG 6 GLOBAL HEMOSTASIS W/ LYSIS STAT 06/27/2024 4:55 AM HOUSE COORDINATOR ALCOHOL ETHYL BLOOD STAT 06/27/2024 4 :55 AM HOUSE COORDINATOR PT-INR [facility] STAT 06/27/2024 4:55 AM HOUSE COORDINATOR MAGNESIUM BLOOD STAT 06/27/2024 4:55 AM HOUSE COORDINATOR COMPREHENSIVE METABOLIC PANEL STAT 06/27/2024 4:55 AM HOUSE COORDINATOR CBC W AUTO DIFFERENTIAL STAT 06/27/19 4:[address] HEAD WO CONTRAST STAT 06/27/2024 3 :53 AM HOUSE COORDINATOR Traumatic injury of head, initial encounter Laceration of scalp, initial encounter LACTIC ACID BLOOD REFLEX TO REPEAT STAT 06/17/2024 9:45 AM HOUSE COORDINATOR HYDROXYBUTYRATE BETA STAT 06/17/2024 9:45 AM HOUSE COORDINATOR ALCOHOL ETHYL BLOOD STAT 06/17/2024 9 :45 AM HOUSE COORDINATOR COMPREHENSIVE METABOLIC PANEL STAT 06/17/2024 9:45 AM HOUSE COORDINATOR CBC W AUTO DIFFERENTIAL STAT 06/17/19 9:45 AM HOUSE COORDINATOR ED INCISION AND DRAINAGE Routine 06/15/2024 1:50 AM HOUSE COORDINATOR XR HAND LEFT 3VW OR MORE STAT 06/13/2024 10:44 AM HOUSE COORDINATOR Open wound of left hand without foreign body, unspecified wound type, initial encounter CULTURE WOUND+GRAM STAIN STAT 06/13/2024 10:29 AM HOUSE COORDINATOR URINE DRUG SCREEN IMMUNOASSAY STAT 06/11/2024 11:34 AM HOUSE COORDINATOR VALPROIC ACID LEVEL STAT 06/11/2024 1 0:52 AM HOUSE COORDINATOR ALCOHOL ETHYL BLOOD STAT 06/11/2024 1 0:52 AM HOUSE COORDINATOR BASIC METABOLIC PANEL (CALCIUM TOTAL) STAT 06/11/2024 10:52 AM HOUSE COORDINATOR CBC W AUTO DIFFERENTIAL STAT 06/11/19 10:52 AM HOUSE COORDINATOR from Last 3 Months Results * TEG 6 GLOBAL HEMOSTASIS W/ LYSIS (06/27/2024 4:55 AM HOUSE COORDINATOR) Citrated Kaolin R (Reaction Time) 4.7 4.6 - 9.1 min 06/27/2024 6:09 AM [facility] Citrated Kaolin LY30 (Lysis) 0.5 0.0 - 2.6 % 06/27/2024 6:09 AM [facility] Citrated Functional Fibrinogen MA (Max Amplitude) 18.0 15.0 - 32.0 mm 06/27/2024 6:09 AM [facility] Citrated RapidTEG MA (Max Amplitude) 60.6 52.0 - 70.0 mm 06/27/2024 6:09 AM [facility] Blood BLOOD SPECIMEN / Unknown Venipuncture / Unknown 06/27/2024 4:55 AM [facility] 06/27/2024 5:10 AM [facility] Shama Hutchins MD LAB - HEMATOLOGY ORD ERABLES [address] [address] [phone] * (ABNORMAL) TEG 6S PLATELET MAPPING (06/27/2024 4:55 AM [facility]) TEGPLM (Max Amplitude) Koalin 60.0 53.0 - 68.0 mm 06/27/2024 6:09 AM [facility] TEGPLM (Max Amplitude) ACTF 7.3 2.0 - 19.0 mm 06/27/2024 6:09 AM [facility] TEGPLM (Max Amplitude) ADP 34.1(L) 45.0 - 69.0 mm 06/27/2024 6:09 AM [facility] Comment:ADP MA below normal range. Inhibition present. TEGPLM (Max Amplitude) AA 44.3(L) 51.0 - 71.0 mm 06/27/2024 6:09 AM [facility] Comment:AA MA below normal r cleo. Inhibition present. TEGPLM %Inhibition ADP 49.1(H) 0.0 - 17.0 % 06/27/2024 6:09 AM [facility] TEGPLM %Inhibition AA 29.8(H) 0.0 - 11.0 % 06/27/2024 6:09 AM [facility] TEGPLM %Aggregation ADP 50.9(L) 83.0 - 100.0 % 06/27/2024 6:09 AM [facility] TEGPLM % Aggregation AA 70.2(L) 89.0 - 100.0 % 06/27/2024 6:09 AM [facility] Blood BLOOD SPECIMEN / Unknown Venipuncture / Unknown 06/27/2024 4:55 AM HOUSE COORDINATOR 06/27/2024 5:10 AM [facility] Shama Hutchins MD LAB - HEMATOLOGY ORD ERABLES Performing Organization Address [facility]/ZIP Co de Phone Number [address] [address], [place] [phone] * PT-INR [facility] (06/27/2024 4:55 AM HOUSE COORDINATOR) PT 12.2 12.1 - 14.8 Seconds 06/27/2024 6:22 AM [facility] INR 0.9 See Comment 06/27/2024 6:22 AM [facility] Comment:The suggested therap eutic range for standard coumadin (warfarin) therapy is an INR of 2.0-3.0. For high-risk patients (Mechanical Mitral Valve Prosthesis, etc.), the suggested prophylactic therapeutic range is an INR of 2.5-3.5. Blood BLOOD SPECIMEN / Unknown Venipuncture / Unknown 06/27/2024 4:55 AM HOUSE COORDINATOR 06/27/2024 5:56 AM [facility] Shama Hutchins MD LAB - COAGULATION OR DERABLES Performing Organization Address [facility]/ZIP Co de Phone Number [address] [address], [place] [phone] * LEVETIRACETAM LEVEL (06/27/2024 4:55 AM HOUSE COORDINATOR) Levetiracetam 30 10 - 40 ug/mL 06/29/2024 6:20 AM [facility] ([facility]) Comment: INTERPRETIVE INFORMATION: Keppra (Levetiracetam) Therapeutic Range: ??10-40 ug/mL ?Toxic: ??Not well Established Pharmacokinetics of levetiracetam are affected by renal function. Adverse effects may include somnolence, weakness, headache and vomiting. This levetiracetam (Keppra) immunoassay uses the [employer] reagents, which has known cross-reactivity with the drug brivaracetam (Briviact) and may report inaccurate results. Patients transitioning from levetiracetam to brivaracetam or those who are using both medications should not monitor drug concentrations with the [employer] assay. These patients should be monitored using a validated chromatographic methodology that distinguishes between drugs to determine drug concentrations. Performed By: [facility] [address] [place] [address] Lot Porter: Miguel Pizano MD, PhD CLIA Number: [id number] Blood BLOOD SPECIMEN / Unknown Venipuncture / Unknown 06/27/2024 4:55 AM HOUSE COORDINATOR 06/27/2024 5:05 AM HOUSE COORDINATOR Shama Hutchins MD LAB - THERAPEUTIC DR MASTERSON MONITORING ORDERABLES [facility] ([facility]) [address] [place] [address], [place] * (ABNORMAL) CBC W AUTO DIFFERENTIAL (06/27/2024 4:55 AM HOUSE COORDINATOR) Only the most recent of3 resultswithin the time period is included. WBC 13.6(H) 4.0 - 10.7 x10E9/L 06/27/2024 5:20 AM [facility] RBC Count 4.25(L) 4.30 - 5.80 x10E12/L 06/27/2024 5:20 AM [facility] Hemoglobin 12.6(L) 13.3 - 17.5 g/dL 06/27/2024 5:20 AM [facility] Hematocrit 37.4(L) 38.7 - 51.1 % 06/27/2024 5:20 AM [facility] MCV 88.0 80.0 - 98.0 fL 06/27/2024 5:20 AM [facility] MCH 29.6 26.7 - 33.6 pg 06/27/2024 5:20 AM [facility] MCHC 33.7 31.7 - 36.3 g/dL 06/27/2024 5:20 AM [facility] RDW-CV 11.9 11.3 - 14.8 % 06/27/2024 5:20 AM [facility] Platelet Count 293 150 - 420 x10E9/L 06/27/2024 5:20 AM [facility] MPV 9.5 7.8 - 11.4 fL 06/27/2024 5:20 AM [facility] Neutrophil % 72.9 41.0 - 74.0 % 06/27/2024 5:20 AM [facility] Lymphocyte % 18.0 17.0 - 47.0 % 06/27/2024 5:20 AM [facility] Monocyte % 6.8 3.0 - 11.0 % 06/27/2024 5:20 AM [facility] Eosinophil % 1.6 0.0 - 7.0 % 06/27/2024 5:20 AM [facility] Basophil % 0.3 0.0 - 1.6 % 06/27/2024 5:20 AM [facility] Immature Granulocytes % 0.4 0.0 - 1.0 % 06/27/2024 5:20 AM [facility] Neutrophil Absolute 9.90(H) 1.60 - 7.50 x10E9/L 06/27/2024 5:20 AM [facility] Lymphocyte Absolute 2.45 1.00 - 4.40 x10E9/L 06/27/2024 5:20 AM [facility] Monocyte Absolute 0.93 0.15 - 1.00 x10E9/L 06/27/2024 5:20 AM [facility] Eosinophil Absolute 0.22 0.00 - 0.60 x10E9/L 06/27/2024 5:20 AM [facility] Basophil Absolute 0.04 0.00 - 0.13 x10E9/L 06/27/2024 5:20 AM [facility] Blood BLOOD SPECIMEN / Unknown Venipuncture / Unknown 06/27/2024 4:55 AM HOUSE COORDINATOR 06/27/2024 5:11 AM HOUSE COORDINATOR Shama Hutchins MD LAB - HEMATOLOGY ORD ERABLES [facility] [address] [place] [address], [place] [phone] * (ABNORMAL) COMPREHENSIVE METABOLIC PANEL (06/27/2024 4:55 AM HOUSE COORDINATOR) Only the most recent of2 resultswithin the time period is included. BUN 7 7 - 26 mg/dL 06/27/2024 5:40 AM [facility] Creatinine 0.62(L) 0.71 - 1.16 mg/dL 06/27/2024 5:40 AM [facility] Sodium 142 136 - 145 mmol/L 06/27/2024 5:40 AM [facility] Potassium 4.5 3.5 - 4.5 mmol/L 06/27/2024 5:40 AM [facility] Chloride 110(H) 98 - 107 mmol/L 06/27/2024 5:40 AM [facility] CO2 27 22 - 29 mmol/L 06/27/2024 5:40 AM [facility] Glucose 100(H) 70 - 99 mg/dL 06/27/2024 5:40 AM [facility] Calcium 9.1 8.4 - 10.2 mg/dL 06/27/2024 5:40 AM [facility] Protein Total 6.6 6.0 - 8.3 g/dL 06/27/2024 5:40 AM [facility] Albumin 4.0 3.4 - 5.0 g/dL 06/27/2024 5:40 AM [facility] Bilirubin Total 0.3 0.2 - 1.2 mg/dL 06/27/2024 5:40 AM [facility] Alkaline Phosphatase 66 40 - 150 U/L 06/27/2024 5:40 AM [facility] ALT 19 5 - 55 U/L 06/27/2024 5:40 AM [facility] AST 31 5 - 34 U/L 06/27/2024 5:40 AM [facility] Anion Gap 5(L) 6 - 16 06/27/2024 5:40 AM [facility] BUN/Creatinine Ratio 11 7 - 23 06/27/2024 5:40 AM [facility] Osmolality Calculated 292 275 - 295 mOsm/kg 06/27/2024 5:40 AM [facility] Albumin/Globulin Ratio 1.5 1.1 - 2.3 06/27/2024 5:40 AM [facility] eGFR by CKD-EPI >90 >=90 mL/min/1.7 3 m2 06/27/2024 5:40 AM [facility] Blood BLOOD SPECIMEN / Unknown Venipuncture / Unknown 06/27/2024 4:55 AM HOUSE COORDINATOR 06/27/2024 5:11 AM HOUSE COORDINATOR Shama Hutchins MD LAB - CHEMISTRY TISHA WOODALL Performing Organization Address City/[facility]/ZIP Co de Phone Number [address] [address], [place] [phone] * MAGNESIUM BLOOD (06/27/2024 4:55 AM HOUSE COORDINATOR) Magnesium 2.0 1.6 - 2.6 mg/dL 06/27/2024 5:40 AM [facility] Blood BLOOD SPECIMEN / Unknown Venipuncture / Unknown 06/27/2024 4:55 AM HOUSE COORDINATOR 06/27/2024 5:11 AM HOUSE COORDINATOR Shama Hutchins MD LAB - CHEMISTRY TISHA WOODALL [address] [address], [place] [phone] * ALCOHOL ETHYL BLOOD (06/27/2024 4:55 AM HOUSE COORDINATOR) Only the most recent of3 resultswithin the time period is included. Ethanol (mg/dL) <10 <10 mg/dL 5:40 AM [facility] Ethanol Calculated (g/dL) <0.010 <=0.010 g/dL 06/27/2024 5:40 AM HOUSE COORDINATOR [facility] Blood BLOOD SPECIMEN / Unknown Venipuncture / Unknown 06/27/2024 4:55 AM HOUSE COORDINATOR 06/27/2024 5:11 AM HOUSE COORDINATOR Narrative [facility] - 06/27/2024 5:40 AM HOUSE COORDINATOR Ethanol Interp <10: None Detected. Depression of APPLICATIONS INTERN: >100 mg/dl Potentially Critical: >250 mg/dl Potentially Fatal >400 mg/dl Ethanol in the patient's blood will contribute to the osmolar gap. Ethanol's contribution to the osmolar gap can be estimated by dividing the concentration of ethanol in mg/dL by 4.6. This test is for clinical use only and does not equal a ANÍBAL for legal purposes. Shama Hutchins MD LAB - CHEMISTRY TISHA WOODALL Performing Organization Address City/[facility]/ZIP Co de Phone Number [address] [address], [place] [phone] * (ABNORMAL) VALPROIC ACID LEVEL (06/27/2024 4:55 AM HOUSE COORDINATOR) Only the most recent of2 resultswithin the time period is included. Valproic Acid Total <13(L) 50 - 100 ug/mL 06/27/2024 5:44 AM HOUSE COORDINATOR [facility] Blood BLOOD SPECIMEN / Unknown Venipuncture / Unknown 06/27/2024 4:55 AM HOUSE COORDINATOR 06/27/2024 5:16 AM HOUSE COORDINATOR Shama Hutchins MD LAB - CHEMISTRY [facility]ISHA WOODALL [address] [address], [place] [phone] * (ABNORMAL) CARBAMAZEPINE LEVEL TOTAL (06/27/2024 4:55 AM HOUSE COORDINATOR) Carbamazepine, trough <1.9(L) 4.0 - 12.0 ug/mL 06/27/2024 5:44 AM HOUSE COORDINATOR [facility] Blood BLOOD SPECIMEN / Unknown Venipuncture / Unknown 06/27/2024 4:55 AM HOUSE COORDINATOR 06/27/2024 5:16 AM HOUSE COORDINATOR Shama Hutchins MD LAB - CHEMISTRY TISHA [place] Organization Address City/State/ZIP Co de Phone Number [facility] [facility] [place] [address], [place] [phone] * CT Head Wo Contrast (06/27/2024 3:53 AM HOUSE COORDINATOR) Anatomical Region Laterality Modality Head Computed Tomogra phy 06/27/2024 4:36 AM HOUSE COORDINATOR Impressions 06/27/2024 12:55 PM HOUSE COORDINATOR IMPRESSION: 1.Streak artifact from the embolization material in the right frontal lobe limits evaluation. Within the limitations of this exam, no large acute intracranial hemorrhage or mass effect is identified. 2.A left parietal scalp contusion/hematoma with overlying skin gonzalo. No acute calvarial fractures. > Dictated by Mark Orozco DO ([employer]), 06/27/2024 4:55 AM. I, Popeye Hughes MD have personally reviewed and interpreted this examination/study. > Interpreting Provider: Popeye Hughes MD on 06/27/2024 12:55 PM Narrative 06/27/2024 12:55 PM HOUSE COORDINATOR PROCEDURE: ??CT HEAD WO CONTRAST, DATE/TIME OF EXAM: ??06/27/2024 3:54 AM, LOCATION ??[facility] INDICATION: S09.90XA: Traumatic injury of head, initial encounter S01.01XA: Laceration of scalp, initial encounter EXAMINATION: Computed tomography (CT) of the head without contrast ADDITIONAL CLINICAL INFORMATION: Ordering Provider Reason For Exam: ??bleed vs mass effect ?? TECHNIQUE: CT of the head was performed without contrast according to standard protocol. CT dose reduction technique was used, including Automated Exposure Control. COMPARISON: CT head 04/29/2016 FINDINGS: Embolization material is noted in the right frontal lobe with streak artifact obscuring evaluation of the adjacent areas. Within the limitations of this exam, no large acute intracranial hemorrhage is identified. The ventricles are of normal size, shape, and morphology. The basilar cisterns are patent. Hari cisterna magna. No mass effect or midline shift is seen. Hypodense area surrounding the embolization material in the right frontal lobe (series 2 image 24) likely posttreatment changes. The barba-white matter differentiation is normal. No acute calvarial fracture is identified. The orbits appear normal. There is mild paranasal sinus disease. The mastoid air cells are clear. Left parietal scalp contusion/hematoma with overlying skin gonzalo. Procedure Note Popeye Hughes MD - 06/27/2024 PROCEDURE: CT HEAD WO CONTRAST, DATE/TIME OF EXAM: 06/27/2024 3:54 AM, LOCATION [facility] INDICATION: S09.90XA: Traumatic injury of head, initial encounter S01.01XA: Laceration of scalp, initial encounter EXAMINATION: Computed tomography (CT) of the head without contrast ADDITIONAL CLINICAL INFORMATION: Ordering Provider Reason For Exam: bleed vs mass effect TECHNIQUE: CT of the head was performed without contrast according to standard protocol. CT dose reduction technique was used, including Automated Exposure Control. COMPARISON: CT head 04/29/2016 FINDINGS: Embolization material is noted in the right frontal lobe with streak artifact obscuring evaluation of the adjacent areas. Within the limitations of this exam, no large acute intracranialhemorrhage is identified. The ventricles are of normal size, shape, and morphology. The basilar cisterns are patent. Hari cisterna magna. No mass effect or midline shift is seen. Hypodense area surrounding the embolizationmaterial in the right frontal lobe (series 2 image 24) likely posttreatmentchanges. The barba-white matter differentiation is normal. No acute calvarial fracture is identified. The orbits appear normal. There is mildparanasal sinus disease. The mastoid air cells are clear. Left parietal scalp contusion/hematoma with overlying skin gonzalo. IMPRESSION: 1.Streak artifact from the embolization material in the right frontallobe limits evaluation. Within the limitations of this exam, no large acute intracranial hemorrhage or mass effect is identified. 2.A left parietal scalp contusion/hematoma with overlying skin gonzalo.No acute calvarial fractures. > Dictated by Mark Orozco DO ([employer]), 06/27/2024 4:55AM. Popeye Pastrana MD have personally reviewed and interpreted this examination/study. > Interpreting Provider: Popeye Hughes MD on 06/27/2024 12:55 PM Shama A Liset MD CT ORDERABLES * (ABNORMAL) LACTIC ACID BLOOD REFLEX TO REPEAT (06/17/2024 9:45 AM HOUSE COORDINATOR) Lactic Acid 3.3(HH) <=2.0 mmol/L 06/17/2024 10:23 AM HOUSE COORDINATOR [facility] Blood BLOOD SPECIMEN / Unknown Venipuncture / Unknown 06/17/2024 9:45 AM HOUSE COORDINATOR 06/17/2024 9:51 AM HOUSE COORDINATOR James Ogden MD LAB - CHEMISTRY TISHA WOODALL Performing Organization Address [facility] Co de Phone Number [facility] [address] [place] [phone] * HYDROXYBUTYRATE BETA (06/17/2024 9:45 AM HOUSE COORDINATOR) Beta-Hydroxybu tyrate <0.50 <0.50 mmol/L 06/17/2024 10:23 AM HOUSE COORDINATOR [facility] Blood BLOOD SPECIMEN / Unknown Venipuncture / Unknown 06/17/2024 9:45 AM HOUSE COORDINATOR 06/17/2024 9:51 AM HOUSE COORDINATOR Narrative [facility] - 06/17/2024 10:23 AM HOUSE COORDINATOR Results >1.5 mmol/L may be indicative of diabetic ketoacidosis. Use in conjunction with Serum Glucose levels. James Ogden MD LAB - CHEMISTRY TISHA WOODALL Performing Organization Address [facility] Co de Phone Number [facility] [phone] [place] [phone] * Incision/Drainage (06/15/2024 1:50 AM HOUSE COORDINATOR) Narrative Zane Huynh MD - 06/15/2024 1:50 AM HOUSE COORDINATOR Zane Huynh MD ? 06/15/2024 ??2:07 AM Incision/Drainage Date/Time: 06/15/2024 1:50 AM Performed by: Vinay Sweet DPM Authorized by: Zane Huynh MD ?? Consent: ??Consent obtained: ??Verbal ??Consent given by: ??Patient ??Risks discussed: ??Bleeding and incomplete drainage Location: ??Type: ??Abscess ??Location: ??Upper extremity ??Upper extremity location: ??Hand ??Hand location: ??L hand Pre-procedure details: ??Skin preparation: ??Povidone-iodine Sedation: ??Sedation type: ??None Anesthesia: ??Anesthesia method: ??Local infiltration ??Local anesthetic: ??Lidocaine 1% w/o epi Procedure type: ??Complexity: ??Simple Procedure details: ??Ultrasound guidance: no ?Needle aspiration: no ?Incision types: ??Stab incision ??Incision depth: ??Dermal ??Drainage: ??Bloody (scant) ??Drainage amount: ??Scant Post-procedure details: ??Procedure completion: ??Tolerated well, no immediate complications Zane Huynh MD PROCEDURE/MINOR SURG ICAL ORDERABLES * XR Hand Left 3Vw or More (06/13/2024 10:44 AM HOUSE COORDINATOR) Anatomical Region Laterality Modality Wrist / Hand Digital Radiogra phy 06/13/2024 10:4 5 AM HOUSE COORDINATOR Impressions 06/13/2024 11:03 AM HOUSE COORDINATOR IMPRESSION: 1. Second digit amputation. 2. No acute osseous abnormality. Report was dictated by Levar Hutchinson MD, ([facility]ated [facility] resident). I, Cristiana Hernández MD have personally reviewed and interpreted this examination/study. > Interpreting Provider: Cristiana Hernández MD on 06/13/2024 11:03 AM Narrative 06/13/2024 11:03 AM HOUSE COORDINATOR PROCEDURE: ??XR HAND LEFT 3VW OR MORE, DATE/TIME OF EXAM: ??06/13/2024 10:45 AM, LOCATION ??[facility] INDICATION: S61.402A: Open wound of left hand without foreign body, unspecified wound type, initial encounter ADDITIONAL CLINICAL INFORMATION: Ordering Provider Reason For Exam: ??LEFT HAND WOUND COMPARISON: None. FINDINGS: There is amputation of the second digit. Soft tissue over the amputation site appears swollen and there is question of a superficial wound/ulcer. The remainder of the osseous structures are intact and well aligned without acute fracture or dislocation. The joint spaces are preserved. Bone density and texture are normal. There is no osseous erosion to suggest osteomyelitis. Procedure Note Cristiana Hernández MD - 06/13/2024 PROCEDURE: XR HAND LEFT 3VW OR MORE, DATE/TIME OF EXAM: 06/13/2024 10:45 AM, LOCATION [facility] INDICATION: S61.402A: Open wound of left hand without foreign body, unspecifiedwound type, initial encounter ADDITIONAL CLINICAL INFORMATION: Ordering Provider Reason For Exam: LEFT HAND WOUND COMPARISON: None. FINDINGS: There is amputation of the second digit. Soft tissue over the amputation site appears swollen and there is question of a superficial wound/ulcer. The remainder of the osseous structures are intact and well alignedwithout acute fracture or dislocation. The joint spaces are preserved. Bonedensity and texture are normal. There is no osseous erosion to suggest osteomyelitis. IMPRESSION: 1. Second digit amputation. 2. No acute osseous abnormality. Report was dictated by Levar Hutchinson MD, ([facility] resident). I, Cristiana Hernández MD have personally reviewed and interpreted this examination/study. > Interpreting Provider: Cristiana Hernández MD on 06/13/2024 11:03 AM Ara Saleem MD DIAGNOSTIC IMAGING O RDERAGREER * CULTURE WOUND+GRAM STAIN (06/13/2024 10:29 AM HOUSE COORDINATOR) [facility] Culture Rare normal skin anand BRIANA 06/16/2024 4:00 PM HOUSE COORDINATOR [facility] Gram Stain Rare Polymorphonuclear cells 06/16/2024 4:00 PM HOUSE COORDINATOR [facility] Gram Stain No organisms seen 025 4:00 PM HOUSE COORDINATOR [facility] Microbiology SPECIMEN FROM WOUND / Unknown Collection / Unknown 06/13/2024 10:29 AM HOUSE COORDINATOR 06/13/2024 10:34 AM HOUSE COORDINATOR Ara Saleem MD LAB - MICROBIOLOGY O RDERABLES [facility] [address] [place], [place] [address], [place] [phone] * (ABNORMAL) URINE DRUG SCREEN IMMUNOASSAY (06/11/2024 11:34 AM HOUSE COORDINATOR) Pathologist [facility] Amphetamines Screen Urine Positive(A) Negative : < 1000 ng/mL 06/11/2024 12:15 PM [facility] Comment: Positive urine amphetamine screening results should be confirmed by another generally accepted non-immunological method such as gas chromatography or mass spectrometry. ? Barbiturates Screen Urine Negative Negative : < 200 ng/mL 06/11/2024 12:15 PM [facility] Benzodiazepine Screen Urine Negative Negative : < 200 ng/mL 06/11/2024 12:15 PM [facility] Opiates Urine Negative Negative : < 300 ng/mL 06/11/2024 12:15 PM [facility] Cocaine Metabolites Urine Negative Negative : < 300 ng/mL 06/11/2024 12:15 PM [facility] Phencyclidine Screen Urine Negative Negative : < 25 ng/ml 06/11/2024 12:15 PM [facility] Cannabinoids Screen Urine Positive(A) Negative : <50 ng/mL 06/11/2024 12:15 PM [facility] Comment:Positive urine canna binoids (THC) screening results should be confirmed by another generally accepted non-immunological method such as gas chromatography or mass spectrometry. Methadone Screen Urine Negative Negative : < 300 ng/mL 06/11/2024 12:15 PM [facility] Fentanyl Screen Urine Negative Negative : <1.5 ng/mL 06/11/2024 12:15 PM [facility] Urine URINE / Unknown Collection / Unknown 06/11/2024 11:34 AM [facility] 06/11/2024 11:45 AM [facility] - 06/11/2024 12:15 PM [facility] The Urine Toxicology Screening Panel does not screen for Propoxyphene, Meprobamate, Carisoprodol, Trazodone, [id number] medications and/or volatiles (Acetone, Isopropanol, Methanol or Ethylene Glycol). Ethanol, Salicylate, Acetaminophen, Tricyclic Antidepressants and several therapeutic drugs may be individually assayed in serum or plasma specimen. Toxicology testing by the [facility] is an aid to medical diagnosis and treatment of patients. No documented chain of custody was maintained. Results are intended to be used for clinical purposes only. ? Shivani Mccall MD LAB - URINE CHEMISTR Y ORDERABLES [facility] [address] [place] [address], [place] [phone] * (ABNORMAL) BASIC METABOLIC PANEL (CALCIUM TOTAL) (06/11/2024 10:52 AM [facility]) BUN 17 7 - 26 mg/dL 06/11/2024 11:30 AM [facility] Creatinine 0.64(L) 0.71 - 1.16 mg/dL 06/11/2024 11:30 AM [facility] Sodium 138 136 - 145 mmol/L 06/11/2024 11:30 AM [facility] Potassium 3.9 3.5 - 4.5 mmol/L 06/11/2024 11:30 AM [facility] Chloride 106 98 - 107 mmol/L 06/11/2024 11:30 AM [facility] CO2 24 22 - 29 mmol/L 06/11/2024 11:30 AM [facility] Glucose 133(H) 70 - 99 mg/dL 06/11/2024 11:30 AM [facility] Calcium 8.9 8.4 - 10.2 mg/dL 06/11/2024 11:30 AM [facility] Anion Gap 8 6 - 16 06/11/2024 11:30 AM [facility] BUN/Creatinine Ratio 27(H) 7 - 23 06/11/2024 11:30 AM [facility] Osmolality Calculated 289 275 - 295 mOsm/kg 06/11/2024 11:30 AM [facility] eGFR by CKD-EPI >90 >=90 mL/min/1.7 3 m2 06/11/2024 11:30 AM [facility] Blood BLOOD SPECIMEN / Unknown Venipuncture / Unknown 06/11/2024 10:52 AM HOUSE COORDINATOR 06/11/2024 11:04 AM HOUSE COORDINATOR Shivani Mccall MD LAB - CHEMISTRY TISHA WOODALL [facility] [address] [place] [address], [place] [phone] from Last 3 Months Care Teams Reliability Technologist Relationship Specialty Start Date End Date None, Physician PCP - General 06/27/24
--- OUTSIDE RECORDS SUMMARY | 2024-07-04 16:50 | XMS_ITS | Clinical Summary ---
Author Organization [facility] Address [address] [place] [address] Phone Care Team Providers Care Collar Turner Operator Name Role Phone Ashley Woodward MD Primary Care Provider Allergies Active Allergy Reactions Criticality Noted Date Comments Penicillin G Unknown 07/21/2015 Medications haloperidol (HALDOL) 5 MG Tablet Take 5 mg by mouth 2 times daily as needed for Agitation. 6 Active doxepin (SINEQUAN) 100 MG Capsule Take 100 mg by mouth daily. 6 Active QUEtiapine Fumarate 400 MG Tablet Take 400 mg by mouth nightly. 6 Active clonazePAM (KlonoPIN) 1 MG Tablet Take 1 mg by mouth 2 times daily. Active carBAMazepine (CARBATROL) 200 MG CAPSULE SR 12 HR Take 1 Capsule by mouth 2 times daily. 180 Capsule 4 Active LevETIRAcetam (Keppra) 1000 MG Tablet Take 1 Tablet by mouth in the morning and at bedtime. 60 Tablet 4 Active divalproex (Depakote) 500 MG Tablet Delayed Response Take 2 Tablets by mouth in the morning and at bedtime for 60 days. 240 Tablet 4 07/04/19 25 Active metroNIDAZOLE (FLAGYL) 500 MG TabletIndicatio ns:Skin and Soft Tissue Infection Take 1 Tablet by mouth every 8 hours. Indications: Infection of the Skin and/or Soft Tissue 30 Tablet 4 Active Additional Information Patient not taking.Reported on 06/06/2024 diclofenac (VOLTAREN) 50 MG Tablet Delayed Response Take 1 Tablet by mouth 2 times daily. 20 Tablet 5 Active Active Problems Problem Noted Date Diagnosed Date Cellulitis of left hand 06/06/2024 Abscess of index finger 05/05/2024 Laceration of index finger 05/04/2024 AVM (arteriovenous malformation) 12/20/2015 Seizure 11/05/2015 Bipolar 1 disorder 11/05/2015 Encounters Date Type Department Care Team Description 06/29/2024 1:17 AM TURBINE ENGINE ASSEMBLER - 06/29/2024 2:15 AM [facility] [address] [place] [address] Scott Wynn MD Phantom limb pain (HCC) Discharge Disposition: Discharged to home or Selfcare 06/29/2024 Travel 06/18/2024 7:10 PM TURBINE ENGINE ASSEMBLER - 06/18/2024 8:40 PM [facility] [address] [place] [address] Kely Coburn, RUBY Cold exposure Discharge Disposition: Discharged to home or Selfcare 06/18/2024 Travel 06/10/2024 6:18 AM TURBINE ENGINE ASSEMBLER - 06/10/2024 8:33 AM [facility] [address] [place] [address] Shelly Barker MD Encounter for other general examination Discharge Disposition: Discharged to home or Selfcare 06/10/2024 Travel 06/06/2024 1:45 AM TURBINE ENGINE ASSEMBLER - 06/07/2024 5:40 AM [facility] [address] [place] [phone] Gigi Tesfaye MD Halliday, Sarah M, VP PATIENT, ASSISTANT STORE LEADER Hector Bellamy MD Cellulitis of left hand Discharge Disposition: Left Against Medical Advice 06/06/2024 Travel 05/04/2024 4:25 AM TURBINE ENGINE ASSEMBLER - 05/05/2024 11:40 AM [facility] [address] [place] [phone] Lonnie Mittal MD Krishna, Naveen Kumar, MD Dianati, Behfar, MD Abscess of index finger Discharge Disposition: Discharged to home or Selfcare 05/04/2024 Travel from Last 3 Months Family History Medical History Relation Name Comments No Known Problems Brother 1 No Known Problems Brother 2 No Known Problems Father No Known Problems Maternal Grandfather No Known Problems Maternal Grandmother No Known Problems Mother No Known Problems Paternal Grandfather Diabetes Paternal Grandmother Relation Name Status Comments Brother 1 Alive Brother 2 Alive Father Alive Maternal Grandfather Maternal Grandmother Alive Mother Alive Paternal Grandfather Alive Paternal Grandmother Social History Tobacco Use Types Packs/Day Years Used Date Smoking Tobacco: Every Day Cigarettes Smokeless Tobacco: Never Tobacco Cessation:Ready to Q uit: Yes; Counseling Given: No Alcohol Use Standard Drinks/Week Comments Yes 0 (1 standard drink = 0.6 oz pur e alcohol) social C Utilities Answer Date Recorded In the past 12 months has th e electric, gas, oil, or water company threatened to shut off services in your home? Patient declined 06/06/2024 Social Connection and Isolation Panel [NHANES] A nswer Date Recorded In a typical week, how many times do you talk on the phone with family, friends, or neighbors? Patient declined 06/06/2024 How often do you get togethe r with friends or relatives? Patient declined 06/06/2024 How often do you attend restoration or jewish serv ices? Patient declined 06/06/2024 Do you belong to any clubs o r organizations such as restoration groups, unions, fraternal or athletic groups, or school groups? Patient declined 06/06/2024 How often do you attend meet ings of the clubs or organizations you belong to? Patient declined 06/06/2024 Are you , , di vorced, , never , or living with a partner? Patient declined 06/06/2024 AUDIT-C Answer Date Recorded Q1: How often do you have a drink containing alc ohol? Patient declined 06/06/2024 Q2: How many drinks containi ng alcohol do you have on a typical day when you are drinking? Patient declined 06/06/2024 Q3: How often do you have si x or more drinks on one occasion? Patient declined 06/06/2024 Overall Financial Resource Strain (CARDIA) Answe r Date Recorded How hard is it for you to pa y for the very basics like food, housing, medical care, and heating? Patient declined 06/06/2024 [facility] [place] of Occupat ional [facility] - Occupational Stress Questionnaire Answer Date Recorded Do you feel stress - tense, restless, nervous, or anxious, or unable to sleep at night because your mind is troubled all the time - these days? Patient declined 06/06/2024 Exercise Vital Sign Answer Date Recorde d On average, how many days pe r week do you engage in moderate to strenuous exercise (like a brisk walk)? Patient declined On average, how many minutes do you engage in exercise at this level? Patient declined 06/06/2024 Hunger Vital Sign Answer Date Recorded Within the past 12 months, y ou worried that your food would run out before you got the money to buy more. Patient declined Within the past 12 months, t he food you bought just didn't last and you didn't have money to get more. Patient declined PRAPARE - Transportation Answer Date Re corded In the past 12 months, has l ack of transportation kept you from medical appointments or from getting medications? Patient declined 06/06/2024 In the past 12 months, has l ack of transportation kept you from meetings, work, or from getting things needed for daily living? Patient declined 06/06/2024 Housing Stability Vital Sign Answer Cristopher e Recorded In the last 12 months, was t here a time when you were not able to pay the mortgage or rent on time? Patient declined 06/06/20 24 In the past 12 months, how m any times have you moved where you were living? 1 06/06/2024 At any time in the past 12 m [facility], were you homeless or living in a longterm (including now)? Patient declined 06/06/2024 Sexually Active Control Partners Comments Yes Female Sex and Gender Information Value Date Recorded Sex Assigned at Male 05/04/2024 4:31 AM TURBINE ENGINE ASSEMBLER Legal Sex Male 9:58 PM CDT Gender Identity Male 05/04/2024 4:31 AM TURBINE ENGINE ASSEMBLER Sexual Orientation Not on file Last Filed Vital Signs Vital Sign Reading Time Taken Comments Blood Pressure 137/66 06/29/2024 2:13 AM TURBINE ENGINE ASSEMBLER Pulse 80 06/29/2024 2:13 AM TURBINE ENGINE ASSEMBLER Temperature 36.2 ??C (97.1 ??F) 06/29/2024 2:13 AM CS T Respiratory Rate 16 06/29/2024 2:13 AM TURBINE ENGINE ASSEMBLER Oxygen Saturation 99% 06/29/2024 2:13 AM TURBINE ENGINE ASSEMBLER Inhaled Oxygen Concentration - - Weight 77.1 kg (170 lb) 06/29/2024 1:17 AM TURBINE ENGINE ASSEMBLER Height 177.8 cm (5' 10 ) 06/29/2024 1:17 AM TURBINE ENGINE ASSEMBLER Body Mass Index 24.39 06/29/2024 1:17 AM TURBINE ENGINE ASSEMBLER Plan of Treatment Health Maintenance Due Date Last Done Comments Hepatitis C Virus (HCV) Screening 1984 Hepatitis B Immunization (1 of 3 - 19+ 3-dose series) 12/18/2003 Pneumococcal Immunization Combined (1 of 2 - PCV) 12/18/2003 Influenza Immunization (#1) 2024 12/0 10/2018, 04/21/2016 SARS-COV-2 Immunization ( - 2023- season) 2024 Respiratory Syncytial Virus (RSV) Immunization (Adult) (1 - 1-dose 75+ series) 12/18/2059 DTaP/Tdap/Td Immunization Discontinued 04/30/2024 TdaP Immunization Completed 04/30/2024 Meningococcal Immunization (ACWY) Aged Out No longer eligible based on patient's age to complete this topic Rotavirus Immunization Aged Out No lo nger eligible based on patient's age to complete this topic Procedures Procedure Name Priority Date/Time Associated Diagnosis Comments URINE DRUG SCREEN Routine 06/06/2024 7:4 9 PM TURBINE ENGINE ASSEMBLER CULTURE, AEROBIC Routine 06/06/2024 3:04 PM TURBINE ENGINE ASSEMBLER CULTURE, ANAEROBIC Routine 06/06/2024 3: 04 PM TURBINE ENGINE ASSEMBLER CULTURE, ANAEROBIC WITH CULTURE, AEROBIC Routine 06/06/2024 3:04 [address] CT LEFT HAND W CONTRAST Stat with Interpretation 06/06/2024 3:58 AM TURBINE ENGINE ASSEMBLER CULTURE, BLOOD STAT 06/06/2024 3:00 AM TURBINE ENGINE ASSEMBLER CBC WITH AUTO DIFFERENTIAL STAT 06/06/2024 2:35 AM TURBINE ENGINE ASSEMBLER LACTIC ACID (LACTATE) STAT 06/06/2024 2:35 AM TURBINE ENGINE ASSEMBLER C-REACTIVE PROTEIN (CRP) QUANT STAT 06/06/2024 2:35 AM TURBINE ENGINE ASSEMBLER ERYTHROCYTE SEDIMENTATION RATE (ESR) STAT 06/06/2024 2:35 AM TURBINE ENGINE ASSEMBLER CMP (COMPREHENSIVE METABOLIC PANEL) STAT 06/06/2024 2:35 AM TURBINE ENGINE ASSEMBLER COMPLETE BLOOD COUNT (CBC) WITH DIFF STAT 06/06/2024 2:35 AM TURBINE ENGINE ASSEMBLER CULTURE, BLOOD STAT 06/06/2024 2:35 AM TURBINE ENGINE ASSEMBLER CRITICAL CARE Routine 06/06/2024 2:17 AM TURBINE ENGINE ASSEMBLER CULTURE, AEROBIC Routine 05/05/2024 10:14 AM TURBINE ENGINE ASSEMBLER SMEAR, GRAM STAIN Routine 05/05/2024 10:13 AM TURBINE ENGINE ASSEMBLER CBC WITH AUTO DIFFERENTIAL Routine 05/05/2024 4:42 AM TURBINE ENGINE ASSEMBLER VANCOMYCIN Timed 05/05/2024 4:42 AM TURBINE ENGINE ASSEMBLER COMPLETE BLOOD COUNT (CBC) WITH DIFF Routine 05/05/2024 4:42 AM TURBINE ENGINE ASSEMBLER BASIC METABOLIC PANEL W/ CALCIUM TOTAL Routine 05/05/2024 4:42 AM TURBINE ENGINE ASSEMBLER MRSA NASAL PCR Routine 05/04/2024 6:01 PM TURBINE ENGINE ASSEMBLER MRSA NASAL BY PCR Routine 05/04/2024 6:0 1 PM TURBINE ENGINE ASSEMBLER LACTIC ACID (LACTATE) STAT 05/04/2024 6:24 AM TURBINE ENGINE ASSEMBLER XR FINGER(S) MIN 2 VIEWS LT STAT 05/04/2024 5:37 AM TURBINE ENGINE ASSEMBLER CBC WITH AUTO DIFFERENTIAL STAT 05/04/2024 5:30 AM TURBINE ENGINE ASSEMBLER HEMOGLOBIN A1C W/ ESTIMATED GLUCOSE Routine 05/04/2024 5:30 AM TURBINE ENGINE ASSEMBLER CMP (COMPREHENSIVE METABOLIC PANEL) STAT 05/04/2024 5:30 AM TURBINE ENGINE ASSEMBLER COMPLETE BLOOD COUNT (CBC) WITH DIFF STAT 05/04/2024 5:30 AM TURBINE ENGINE ASSEMBLER INCISION AND DRAINAGE Routine 05/04/2024 5:07 AM TURBINE ENGINE ASSEMBLER from Last 3 Months Results * (ABNORMAL) Urine Drug Screen (06/06/2024 7:49 PM TURBINE ENGINE ASSEMBLER) [facility] UR AMPHETAMINE DETECTED(A) NON DETECTED 06/06/2024 8:10 PM TURBINE ENGINE ASSEMBLER [facility] Comment: FOR MEDICAL USE ONLY. CUTOFF CONCENTRATION FOR DETECTED RESULT: AMPHETAMINE: ??500 NG/ML UR BENZODIAZEPINES NON DETECTED NON DETECTED 06/06/2024 8:10 PM TURBINE ENGINE ASSEMBLER [facility] Comment: FOR MEDICAL USE ONLY. CUTOFF CONCENTRATION FOR DETECTED RESULT: BENZODIAZAPINE: ??200 NG/ML UR COCAINE METABOLITE NON DETECTED NON DETECTED 06/06/2024 8:10 PM TURBINE ENGINE ASSEMBLER [facility] Comment: FOR MEDICAL USE ONLY. CUTOFF CONCENTRATION FOR DETECTED RESULT: COCAINE: ??150 NG/ML UR OPIATES NON DETECTED NON DETECTED 06/06/2024 8:10 PM TURBINE ENGINE ASSEMBLER [facility] Comment: FOR MEDICAL USE ONLY. CUTOFF CONCENTRATION FOR DETECTED RESULT: OPIATES: ? 300 NG/ML UR PHENCYCLIDINE NON DETECTED NON DETECTED 06/06/2024 8:10 PM TURBINE ENGINE ASSEMBLER [facility] Comment: FOR MEDICAL USE ONLY. CUTOFF CONCENTRATION FOR DETECTED RESULT: PCP: ? 25 NG/ML UR CANNABINOID DETECTED(A) NON DETECTED 06/06/2024 8:10 PM TURBINE ENGINE ASSEMBLER [facility] Comment: FOR MEDICAL USE ONLY. CUTOFF CONCENTRATION FOR DETECTED RESULT: THC (MARIJUANA): 50 NG/ML UR BARBITURATE NON DETECTED NON DETECTED 06/06/2024 8:10 PM TURBINE ENGINE ASSEMBLER [facility] Comment: FOR MEDICAL USE ONLY. CUTOFF CONCENTRATION FOR DETECTED RESULT: BARBITUATES: ? 200 NG/ML UR FENTANYL NON DETECTED NON DETECTED 06/06/2024 8:10 PM TURBINE ENGINE ASSEMBLER [facility] Comment: FOR MEDICAL USE ONLY. CUTOFF CONCENTRATION FOR DETECTED RESULT: FENTANYL: ??1.0 NG/ML Urine Non-Phlebotomy Collection / Unknown 06/06/2024 7:49 PM TURBINE ENGINE ASSEMBLER 06/06/2024 7:56 PM TURBINE ENGINE ASSEMBLER us Hector Bellamy MD URINE ORDERABLES Final R esult [facility] [address] [place] [address] * CULTURE, ANAEROBIC (06/06/2024 3:04 PM TURBINE ENGINE ASSEMBLER) CULTURE RESULTS NO ANAEROBES ISOLATED 06/09/2024 12:31 PM TURBINE ENGINE ASSEMBLER [facility] Culture SPECIMEN COLLECTION BY DRAINAGE / Unknown Non-Phlebotomy Collection / Unknown 06/06/2024 3:04 PM TURBINE ENGINE ASSEMBLER 06/06/2024 3:13 PM TURBINE ENGINE ASSEMBLER us Hector Bellamy MD MICROBIOLOGY - GENERAL O RDERABLES Final Result [facility] [address] [place] [address], * CULTURE, AEROBIC (06/06/2024 3:04 PM TURBINE ENGINE ASSEMBLER) Only the most recent of2 resultswithin the time period is included. CULTURE RESULTS STREPTOCOCCUS PYOGENES 06/07/2024 9:51 PM TURBINE ENGINE ASSEMBLER [facility] Comment:DRUG OF CHOICE IS AM PICILLIN OR PENICILLIN CULTURE RESULTS Moderate Mixed anand 06/07/2024 9:51 PM TURBINE ENGINE ASSEMBLER [facility] Culture SPECIMEN COLLECTION BY DRAINAGE / Unknown Non-Phlebotomy Collection / Unknown 06/06/2024 3:04 PM TURBINE ENGINE ASSEMBLER 06/06/2024 3:13 PM TURBINE ENGINE ASSEMBLER us Hector Bellamy MD MICROBIOLOGY - GENERAL O RDERABLES Final Result [facility] [address] [place] [address], [place] * CT LEFT HAND W CONTRAST (06/06/2024 3:58 AM TURBINE ENGINE ASSEMBLER) Anatomical Region Laterality Modality UPPER EXTREMITY Left Computed Tomogra phy 06/06/2024 4:25 AM TURBINE ENGINE ASSEMBLER Impressions 06/06/2024 4:28 AM TURBINE ENGINE ASSEMBLER IMPRESSION: Findings concerning for cellulitis near the distal head of the 2nd metacarpal. No clear evidence of a formed abscess is seen. ??MRI performed with and without intravenous contrast would likely provide better evaluation. Narrative 06/06/2024 4:28 AM TURBINE ENGINE ASSEMBLER EXAM DESCRIPTION: ?? CT LEFT HAND W CONTRAST REASON FOR STUDY: ?? redness, swelling and drainage from index finger today. Pt had an infected cut to index finger with cellulitis in April Index finger was amputated ??on 05/12. ?? TECHNIQUE: Multidetector CT scan of the ?? left hand ??was performed after intravenous contrast. ??Coronal and sagittal images were reconstructed. Dose modulation adjustment of the mA and/or kV has been performed per [facility] protocols according to patient size and indication CONTRAST TYPE/DOSE: ?? 100mL of IOPAMIDOL 76 % IV SOLN ??injected via ?? Intravenous COMPARISON: ?? Plain film study 05/04/2024 FINDINGS: The index finger has apparently been amputated. ??No fracture or dislocation is identified. ??No definite erosion of the bone is seen. ??There is strandy density seen near the distal head of the 2nd metacarpal concerning for cellulitis. ??No clear evidence of the a formed abscess is seen. ??Other portions of the hand appear to be better preserved. ?? THIS IS AN ELECTRONICALLY VERIFIED FINAL REPORT 06/06/2024 4:25 AM - Electronically signed by ??Richard LEE: ROSA D: ??06/06/2024 4:25 AM T: ??06/06/2024 4:25 AM Report ID: [id number] Reading Location: ??[id number] Procedure Note Richard Bowman MD - 06/06/2024 EXAM DESCRIPTION: CT LEFT HAND W CONTRAST REASON FOR STUDY: redness, swelling and drainage from index finger today. Pt had an infected cut to index finger with cellulitis in April Index finger was amputated on 05/12. TECHNIQUE: Multidetector CT scan of the left hand was performed after intravenous contrast. Coronal and sagittal images were reconstructed. Dose modulation adjustment of the mA and/or kV has been performed per [facility] protocols according to patient size and indication CONTRAST TYPE/DOSE: 100mL of IOPAMIDOL 76 % IV SOLN injected via Intravenous COMPARISON: Plain film study 05/04/2024 FINDINGS: The index finger has apparently been amputated. No fracture or dislocation is identified. No definite erosion of the bone is seen. There is strandy density seen near the distal head of the 2nd metacarpal concerning for cellulitis. No clear evidence of the a formed abscess is seen. Other portions of the hand appear to be better preserved. THIS IS AN ELECTRONICALLY VERIFIED FINAL REPORT 06/06/2024 4:25 AM - Electronically signed by Richard Bowman M.D. KH: ROSA Report ID: [id number] Reading Location: [id number] IMPRESSION: Findings concerning for cellulitis near the distal head of the 2nd metacarpal. No clear evidence of a formed abscess is seen. MRI performed with and without intravenous contrast would likely provide better evaluation. us Gigi Tesfaye MD IMG CT ORDERABLES Final R esult * Culture, Blood (06/06/2024 3:00 AM TURBINE ENGINE ASSEMBLER) Only the most recent of2 resultswithin the time period is included. CULTURE RESULTS NO GROWTH WITHIN 5 DAYS, FINAL RESULT 06/11/2024 4:01 AM TURBINE ENGINE ASSEMBLER [facility] Culture BLOOD SPECIMEN / Unknown Venipuncture / Unknown 06/06/2024 3:00 AM TURBINE ENGINE ASSEMBLER 06/06/2024 3:06 AM TURBINE ENGINE ASSEMBLER us Gigi Tesfaye MD MICROBIOLOGY - GENERAL OR DERABLES Final Result [facility] [address] [place] [address], * (ABNORMAL) CBC with Auto Differential (06/06/2024 2:35 AM TURBINE ENGINE ASSEMBLER) Only the most recent of3 resultswithin the time period is included. WBC 10.91 4.00 - 12.00 10(3)/mcL 06/06/2024 2:44 AM [facility] RBC 3.65(L) 4.40 - 5.80 10(6)/mcL 06/06/2024 2:44 AM [facility] HEMOGLOBIN (HGB) 11.2(L) 13.0 - 16.5 g/dL 06/06/2024 2:44 AM [facility] HEMATOCRIT (HCT) 33.3(L) 38.0 - 50.0 % 06/06/2024 2:44 AM [facility] MCV 91.2 82.0 - 96.0 fL 06/06/2024 2:44 AM [facility] MCH 30.7 26.0 - 32.0 pg 06/06/2024 2:44 AM [facility] MCHC 33.6 31.0 - 36.0 g/dL 06/06/2024 2:44 AM TURBINE ENGINE ASSEMBLER [facility] PLATELET COUNT 268 140 - 440 10(3)/mcL 06/06/2024 2:44 AM [facility] RDW 12.1 11.8 - 15.5 % 06/06/2024 2:44 AM [facility] MPV 9.7 8.0 - 12.6 fL 06/06/2024 2:44 AM [facility] NEUTROPHILS 62.5 40.0 - 68.0 % 06/06/2024 2:44 AM TURBINE ENGINE ASSEMBLER [facility] LYMPHOCYTES 23.0 19.0 - 49.0 % 06/06/2024 2:44 AM TURBINE ENGINE ASSEMBLER [facility] MONOCYTES 9.3 3.0 - 13.0 % 06/06/2024 2:44 AM TURBINE ENGINE ASSEMBLER [facility] EOSINOPHILS 4.4 0.0 - 8.0 % 06/06/2024 2:44 AM TURBINE ENGINE ASSEMBLER [facility] BASOPHILS 0.8 0.0 - 1.0 % 06/06/2024 2:44 AM TURBINE ENGINE ASSEMBLER [facility] ABSOLUTE NEUTROPHILS 6.81(H) 1.40 - 5.30 10(3)/[facility] 06/06/2024 2:44 AM [facility] ABSOLUTE LYMPHOCYTES 2.51 0.90 - 3.30 10(3)/[facility] 06/06/2024 2:44 AM [facility] ABSOLUTE MONOCYTES 1.02(H) 0.10 - 0.90 10(3)/[facility] 06/06/2024 2:44 AM TURBINE ENGINE ASSEMBLER [facility] ABSOLUTE EOSINOPHIL 0.48 0.00 - 0.50 10(3)/[facility] 06/06/2024 2:44 AM [facility] ABSOLUTE BASOPHILS 0.09 0.00 - 0.10 10(3)/[facility] 06/06/2024 2:44 AM [facility] NRBC PER 100 WBC 0 06/06/20 24 2:44 AM [facility] Blood Venipuncture / Unknown 06/06/2024 2:35 AM [facility] 06/06/2024 2:41 AM TURBINE ENGINE ASSEMBLER us Gigi Tesfaye MD HEMATOLOGY ORDERABLES Fin al Result [facility] [address] [place] [address] * Sed Rate (Esr) [id number] (06/06/2024 2:35 AM TURBINE ENGINE ASSEMBLER) ESR (SED RATE, ERYTHROCYTE SEDIMENTATION RATE) 5 <15 mm/h 06/06/2024 2:46 AM TURBINE ENGINE ASSEMBLER [facility] Comment: Patients presenting with increased level of fibrinogen, gamma globulins, or abnormally shaped RBCs could affect the results for the erythrocyte sedimentation rate (ESR). Results should be clinically correlated. Blood Venipuncture / Unknown 06/06/2024 2:35 AM TURBINE ENGINE ASSEMBLER 06/06/2024 2:41 AM TURBINE ENGINE ASSEMBLER Gigi Tesfaye MD HEMATOLOGY ORDERABLES Fin al Result Performing Organization Address [facility] Co de Phone Number [facility] [address] [place] [address] * Lactic Acid (Lactate) (06/06/2024 2:35 AM TURBINE ENGINE ASSEMBLER) Only the most recent of2 resultswithin the time period is included. LACTIC ACID 0.9 0.7 - 2.0 mmol/L 06/06/2024 3:05 AM TURBINE ENGINE ASSEMBLER [facility] Comment: Specimen is hemolyzed. In vitro hemolysis could affect results. Clinical correlation advised. Blood Venipuncture / Unknown 06/06/2024 2:35 AM TURBINE ENGINE ASSEMBLER 06/06/2024 2:41 AM TURBINE ENGINE ASSEMBLER Gigi Tesfaye MD CHEMISTRY ORDERABLES Flaca l Result Performing Organization Address [facility] Co de Phone Number [facility] [address] [place] [address] * (ABNORMAL) CMP (Comprehensive Metabolic Panel) (06/06/2024 2:35 AM TURBINE ENGINE ASSEMBLER) Only the most recent of2 resultswithin the time period is included. SODIUM 140 136 - 145 mmol/L 06/06/2024 3:10 AM TURBINE ENGINE ASSEMBLER [facility] POTASSIUM 3.8 3.5 - 5.1 mmol/L 06/06/2024 3:10 AM TURBINE ENGINE ASSEMBLER [facility] CHLORIDE 108(H) 98 - 107 mmol/L 06/06/2024 3:10 AM [facility] CO2, VENOUS 24 22 - 30 mmol/L 06/06/2024 3:10 AM [facility] ANION GAP 11.8 <18.0 mmol/L 06/06/2024 3:10 AM [facility] GLUCOSE 125(H) 70 - 99 mg/dL 06/06/2024 3:10 AM [facility] BUN 12 9 - 21 mg/dL 06/06/2024 3:10 AM [facility] CREATININE, BLOOD 0.73 0.70 - 1.30 mg/dL 06/06/2024 3:10 AM [facility] BUN/CREATININE RATIO 16 12 - 20 ratio 06/06/2024 3:10 AM [facility] TOTAL PROTEIN 6.2(L) 6.3 - 8.2 g/dL 06/06/2024 3:10 AM [facility] ALBUMIN 3.7 3.5 - 5.0 g/dL 06/06/2024 3:10 AM [facility] A/G RATIO 1.5 1.0 - 2.2 06/06/2024 3:10 AM [facility] CALCIUM 8.9 8.7 - 10.5 mg/dL 06/06/2024 3:10 AM [facility] T BILI 0.2 0.2 - 1.2 mg/dL 06/06/2024 3:10 AM [facility] SGOT (AST) 36(H) 5 - 34 U/L 06/06/2024 3:10 AM [facility] SGPT (ALT) 34 0 - 55 U/L 06/06/2024 3:10 AM [facility] ALKALINE PHOSPHATASE 65 40 - 150 U/L 06/06/2024 3:10 AM [facility] GFR, ESTIMATED >60 >=60 06/06/2024 3:10 AM [facility] Comment: Creatinine Clearance is the preferred criteria for selecting drug dose adjustments in renally impaired patients. ??The GFR is provided as additional pertinent clinical information. GFR is reported in mL/min/1.73 sq m. Calculation based on the Chronic Kidney Disease Epidemiology Collaboration (CKD- EPI) equation refit without adjustment for race. GFR, EST. >60 >=60 3:10 AM [employer] ENGINE [employer]SEMBLER [facility] GFR, EST. NONAFRICAN >60 >=60 06/06/2024 3:10 AM [employer] ENGINE [employer]SEM[employer] [facility] Blood Venipuncture / Unknown 06/06/2024 2:35 AM TURBINE ENGINE ASSEMBLER 06/06/2024 2:41 AM TURBINE ENGINE ASSEMBLER Result [facility] Gigi Tesfaye MD CHEMISTRY ORDERABLES Flaca l Result Performing Organization Address [facility] Co de Phone Number [facility] [address] [place] [address] * (ABNORMAL) C-Reactive Protein Qnt (Crp) (06/06/2024 2:35 AM TURBINE ENGINE ASSEMBLER) C-REACTIVE PROTEIN 6.72(H) <0.50 mg/dL 06/06/2024 3:10 AM [employer] ENGINE [employer]SEM[employer] Blood Venipuncture / Unknown 06/06/2024 2:35 AM T[employer]BINE ENGINE ASSEMBLER 06/06/2024 2:41 AM [employer] ENGINE ASSEMBLER Gigi Tesfaye MD CHEMISTRY ORDERABLES Flaca l Result Performing Organization Address City/[facility]/ZIP Co de Phone Number [facility] [address] [place] [address] * Critical Care (06/06/2024 2:17 AM TURBINE ENGINE ASSEMBLER) Narrative Gigi Tesfaye MD - 06/06/2024 2:17 AM TURBINE ENGINE ASSEMBLER Gigi Tesfaye MD ? 06/06/2024 ??5:22 AM Critical Care Performed by: Gigi Tesfaye MD Authorized by: Gigi Tesfaye MD ?? Critical care provider statement: ??Critical care time (minutes): ??35 ??Critical care time was exclusive of: ??Separately billable procedures and treating other patients ??Critical care was necessary to treat or prevent imminent or life-threatening deterioration of the following conditions: Cellulitis left hand. ??Critical care was time spent personally by me on the following activities: ??Development of treatment plan with patient or surrogate, evaluation of patient's response to treatment, examination of patient, obtaining history from patient or surrogate, ordering and review of laboratory studies, ordering and review of radiographic studies, pulse oximetry, re-evaluation of patient's condition, ordering and performing treatments and interventions and review of old charts ??I assumed direction of critical care for this patient from another provider in my specialty: no ?Care discussed with: admitting provider ?? Gigi Tesfaye MD PROCEDURE/MINOR SURGICAL ORDERABLES Final Result * SMEAR, GRAM STAIN (05/05/2024 10:13 AM TURBINE ENGINE ASSEMBLER) GRAM STAIN No epithelial cells 05/05/2024 5:39 PM TURBINE ENGINE ASSEMBLER [facility] GRAM STAIN No Segmented Neutrophils seen 05/05/2024 5:39 PM TURBINE ENGINE ASSEMBLER [facility] GRAM STAIN No Organisms seen 05/05/2024 5:39 PM [facility] [employer]INE [facility] Other SPECIMEN FROM WOUND / Unknown Non-Phlebotomy Collection / Unknown 05/05/2024 10:13 AM TURBINE ENGINE ASSEMBLER 05/05/2024 10:13 AM TURBINE ENGINE ASSEMBLER Evan Meyer MD MICROBIOLOGY - GENERAL ORDERAB LES Final Result Performing Organization Address City/State/[facility] Co de Phone Number [facility] [address] [place] [address], * (ABNORMAL) Vancomycin Level (05/05/2024 4:42 AM TURBINE ENGINE ASSEMBLER) VANCOMYCIN RESULT 13(L) 20 - 40 mcg/mL 05/05/2024 6:07 AM [employer] ENGINE ASSEM[employer] [facility] Blood Venipuncture / Unknown 05/05/2024 4:42 AM T[employer]BINE ENGINE ASSEMBLER 05/05/2024 5:40 AM TURBINE ENGINE ASSEMBLER Narrative [facility] - 05/05/2024 6:07 AM TURBINE ENGINE ASSEMBLER CALL PHARMACY FOR THERAPEUTIC RANGE. us Hector Bellamy MD CHEMISTRY ORDERABLES Fin al Result [facility] [address] [place] [address] * (ABNORMAL) BMP with Ca, Total (05/05/2024 4:42 AM TURBINE ENGINE ASSEMBLER) SODIUM 138 136 - 145 mmol/L 05/05/2024 6:07 AM [facility] POTASSIUM 3.9 3.5 - 5.1 mmol/L 05/05/2024 6:07 AM [facility] CHLORIDE 107 98 - 107 mmol/L 05/05/2024 6:07 AM [facility] CO2, VENOUS 22 22 - 30 mmol/L 05/05/2024 6:07 AM [facility] ANION GAP 12.9 <18.0 mmol/L 05/05/2024 6:07 AM [facility] GLUCOSE 100(H) 70 - 99 mg/dL 05/05/2024 6:07 AM [facility] BUN 11 9 - 21 mg/dL 05/05/2024 6:07 AM [facility] CREATININE, BLOOD 0.67(L) 0.70 - 1.30 mg/dL 05/05/2024 6:07 AM [facility] BUN/CREATININE RATIO 16 12 - 20 ratio 05/05/2024 6:07 AM [facility] CALCIUM 9.0 8.7 - 10.5 mg/dL 05/05/2024 6:07 AM [facility] GFR, ESTIMATED >60 >=60 05/05/2024 6:07 AM [facility] Comment: Creatinine Clearance is the preferred criteria for selecting drug dose adjustments in renally impaired patients. ??The GFR is provided as additional pertinent clinical information. GFR is reported in mL/min/1.73 sq m. Calculation based on the Chronic Kidney Disease Epidemiology Collaboration (CKD- EPI) equation refit without adjustment for race. GFR, EST. >60 >=60 024 6:07 AM [employer]INE [employer] [facility] GFR, EST. NONAFRICAN >60 >=60 05/05/2024 6:07 AM [employer] ENGINE AS[employer] [facility] Blood Venipuncture / Unknown 05/05/2024 4:42 AM T[employer]BINE ENGINE ASSEMBLER 05/05/2024 5:39 AM [employer] ENGINE ASSEMBLER Hector Bellamy MD CHEMISTRY ORDERABLES Fin al Result Performing Organization Address City/[facility]/ZIP Co de Phone Number [facility] [address] [place] [address] * (ABNORMAL) MRSA NASAL PCR (05/04/2024 6:01 PM TURBINE ENGINE ASSEMBLER) MRSA PCR RESULT Positive(A ) Negative, Invalid 05/04/2024 7:26 PM [employer] ENGINE ASSEM[employer] [facility] Other NASOPHARYNGEAL SWAB / Unknown Non-Phlebotomy Collection / Unknown 05/04/2024 6:01 PM TURBINE ENGINE ASSEMBLER 05/04/2024 6:23 PM TURBINE ENGINE ASSEMBLER Hector Bellamy MD MICROBIOLOGY - GENERAL O RDERABLES Final Result Performing Organization Address City/[facility]/ZIP Co de Phone Number [facility] [address] [place] [address] * XR FINGER(S) MIN 2 VIEWS LT (05/04/2024 5:37 AM TURBINE ENGINE ASSEMBLER) Anatomical Region Laterality Modality UPPER EXTREMITY, Fingers N/A Digital Radiography 05/04/2024 6:58 AM TURBINE ENGINE ASSEMBLER Impressions 05/04/2024 7:00 AM TURBINE ENGINE ASSEMBLER IMPRESSION: Diffuse soft tissue swelling of the 2nd digit with soft tissue laceration. ??The presence of bandaging material limits assessment for foreign body. ??No acute fracture Narrative 05/04/2024 7:00 AM TURBINE ENGINE ASSEMBLER EXAM DESCRIPTION: XR FINGER(S) MIN 2 VIEWS LT REASON FOR STUDY: Laceration to left index finger multiple days ago, with swelling and pain. Infection left index finger with drainage. Digit now bandaged after draining and cleaning ?? TECHNIQUE: PA view of the left hand and oblique and lateral views centered at the 2nd digit. COMPARISON: None FINDINGS: There is significant bandaging material overlying the 2nd digit, limiting fine osseous detail. ??There is no acute fracture or dislocation. ??No destructive osseous lesion. ??There is a soft tissue lucency along the dorsal aspect at the mid aspect of the digit which may represent the site of laceration. ??Correlate clinically. ??There is diffuse soft tissue swelling about the 2nd digit. ??Bandaging material limits assessment for foreign body. THIS IS AN ELECTRONICALLY VERIFIED FINAL REPORT 05/04/2024 6:58 AM - Electronically signed by ??Sarahy Gibbs M.D. TW: D: ??05/04/2024 6:58 AM T: ??05/04/2024 6:58 AM Report ID: [id number] Reading Location: ??[id number] Procedure Note Sarahy Gibbs MD - 05/04/2024 EXAM DESCRIPTION: XR FINGER(S) MIN 2 VIEWS LT REASON FOR STUDY: Laceration to left index finger multiple days ago, with swelling and pain. Infection left index finger with drainage. Digit now bandaged after draining and cleaning TECHNIQUE: PA view of the left hand and oblique and lateral views centered at the 2nd digit. COMPARISON: None FINDINGS: There is significant bandaging material overlying the 2nd digit, limiting fine osseous detail. There is no acute fracture or dislocation. No destructive osseous lesion. There is a soft tissue lucency along the dorsal aspect at the mid aspect of the digit which may represent the site of laceration. Correlate clinically. There is diffuse soft tissue swelling about the 2nd digit. Bandaging material limits assessment for foreign body. THIS IS AN ELECTRONICALLY VERIFIED FINAL REPORT 05/04/2024 6:58 AM - Electronically signed by Sarahy Gibbs M.D. TW: Report ID: [id number] Reading Location: [id number] IMPRESSION: Diffuse soft tissue swelling of the 2nd digit with soft tissue laceration. The presence of bandaging material limits assessment for foreign body. No acute fracture us Lonnie Mittal MD IMG DIAGNOSTIC ORDERABLES Final Result * Hemoglobin A1C w/ Estimated Glucose (05/04/2024 5:30 AM TURBINE ENGINE ASSEMBLER) HGB-A1C 5.3 4.0 - 6.0 % 05/04/2024 10:24 AM TURBINE ENGINE ASSEMBLER [facility] Est Average Glucose 105.4 mg/dL 05/04/2024 10:24 AM TURBINE ENGINE ASSEMBLER [facility] Blood Venipuncture / Unknown 05/04/2024 5:30 AM TURBINE ENGINE ASSEMBLER 05/04/2024 6:06 AM TURBINE ENGINE ASSEMBLER Narrative [facility] - 05/04/2024 10:24 AM TURBINE ENGINE ASSEMBLER HEMOGLOBIN A1C: DIABETIC PATIENTS: WELL-CONTROLLED: ?? 6.2 - 7.0 INTERMEDIATE WELL-CONTROLLED: ??7.0 - 9.0 POORLY-CONTROLLED: ??>9.0 us Hector Bellamy MD CHEMISTRY ORDERABLES Fin al Result [facility] [address] [place] [address] * Incision and Drainage (05/04/2024 5:07 AM TURBINE ENGINE ASSEMBLER) Narrative Sergio Busby MD - 05/04/2024 5:07 AM TURBINE ENGINE ASSEMBLER Sergio Busby MD ? 05/04/2024 ??6:44 AM Incision and Drainage Performed by: Lonnie Mittal MD Authorized by: Lonnie Mittal MD ?? Consent: ??Consent obtained: ??Verbal ??Consent given by: ??Patient ??Risks discussed: ??Bleeding, incomplete drainage, infection and pain ??Alternatives discussed: ??No treatment [place] protocol: ??Patient identity confirmed: ??Verbally with patient Location: ??Type: ??Abscess ??Size: ??1.5cm ??Location: ??Upper extremity ??Upper extremity location: ??Finger ??Finger location: ??L index finger Pre-procedure details: ??Skin preparation: ??Povidone-iodine Sedation: ??Sedation type: ??None Anesthesia: ??Anesthesia method: ??None Procedure type: ??Complexity: ??Simple Procedure details: ??Needle aspiration: no ?Wound management: ??Irrigated with saline and extensive cleaning ??Drainage: ??Purulent ??Drainage amount: ??Moderate ??Wound treatment: ??Wound left open ??Packing materials: ??None Post-procedure details: ??Procedure completion: ??Tolerated well, no immediate complications Comments: ?? Digital block was done using 4ml of 1% lidocaine without epinephrine using a 27 gauge needle. ??A ring block was done around the left index finger after which patient had good anesthesia of the finger. ??The pus was then expressed with circumferential pressure draining a moderate amount of yellow pus. ??The wound was then explored thoroughly and it appears that his extensor tendon has been completely lacerated. ??The infection appears to extend to fully into the joint space of the PIP of the left index finger. ??The wound was then extensively irrigated with 100 cc of sterile saline. ??Patient tolerated the procedure well without any complications. 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 PRE-ARREST: Use entire range of life support measures to stabilize the patient. * Full Code Date Activated Date Inactivated Comments 05/04/2024 9:14 AM 06/06/2024 10:59 AM CPR-Full Treatment: FULL ARREST: Attempt Resuscitation/CPR wit intubation and mechanical ventilation. PRE-ARREST: Use entire range of life support measures to stabilize the patient. Care Teams Collar Turner Operator Relationship Specialty Start Date End Date Ashley Woodward MD [address] [place] [address] [facility] [address] [place] [address] PCP - General Internal Medicine 05/04/24
--- OUTSIDE RECORDS SUMMARY | 2024-07-04 16:50 | XMS_ITS | Patient Health Summary ---
Author Organization [facility] [employer] Address [address] [place] [address] Care Team Providers Care Capsule Filler Name Role Phone None, Physician Primary Care Provider Unavailabl e Note from [facility],non-owned Affiliates and Associated Physician Practices is amultiple site organization consisting of ambulatory clinics and hospital sitesin [place], [place], [place] and [place]. This disclosure is being madepursuant to the Care Everywhere program and may not contain all information available regarding this patient. Last updated 18.[facility] [employer] Allergies * Penicillin G(Unknown) Medications * Be aware that medications may not be up to date on this document. Alwaysverify current medications with the patient. * busPIRone (BUSPAR) 5 MG tablet(Started 03/14/2021) * gabapentin (Neurontin) 300 MG capsule(Started 05/29/2024) Take 1 (one) capsule by mouth 3 times daily * ibuprofen (Motrin) 400 MG tablet(Started 06/10/2024) Take 1 (one) tablet by mouth every 6 hours as needed * levETIRAcetam (Keppra) 500 MG tablet(Started 06/27/2024) Take 2 (two) tablets by mouth 2 times daily * divalproex DR (Depakote) 500 MG tablet(Started 06/27/2024) Take 1 (one) tablet by mouth 2 times daily * carBAMazepine ER 12hr (Carbatrol) 200 MG capsule(Started 06/27/2024) Take 1 (one) capsule by mouth every 12 hours Ended Medications* doxepin (SINEQUAN) 100 MG capsule(Started 01/29/2016) (Discontinued) Take 2 (two) capsules by mouth * haloperidol (HALDOL) 5 MG tablet(Started 01/29/2016)(Discontinued) Take 1 (one) tablet by mouth 2 times daily * QUEtiapine (SEROQUEL) 400 MG tablet(Started 01/29/2016)(Discontinued) Take 2 (two) tablets by mouth * divalproex ER 24hr (Depakote ER) 500 MG tablet(Started 03/25/2022) (Discontinued) Take 1 tablet in the morning, and 2 tablets at night 3 refills by 03/25/2023 * carBAMazepine XR 12hr (TEGretol XR) 400 MG tablet(Started 06/30/2023) (Discontinued) Take 1 (one) tablet by mouth 2 times daily 3 refills by 06/29/2024 * levETIRAcetam (Keppra) 1000 MG tablet(Started 06/30/2023)(Discontinued) Take 2 (two) tablets by mouth 2 times daily 3 refills by 06/29/2024 * pyridoxine (Vitamin B-6) 100 MG tablet(Started 06/30/2023)(Discontinued) Take 1 (one) tablet by mouth once daily 3 refills by 06/29/2024 * clonazePAM (KlonoPIN) 1 MG tablet(Started 01/05/2024)(Discontinued) Take 1 tablet by mouth twice daily 5 refills by 07/03/2024 * mupirocin (Bactroban) 2 % ointment(Started 05/22/2024)(Discontinued) Apply to affected area 3 times daily * OLANZapine (ZyPREXA) 10 MG tablet(Started 05/28/2024)(Discontinued) Take 1 (one) tablet by mouth at bedtime * sulfamethoxazole-trimethoprim (Bactrim DS; Septra DS) 800-160 MG tablet (Started 06/15/2024)() Take 1 (one) tablet by mouth 2 times daily for 7 days Active Problems Problem Noted Date Diagnosed Date Homeless 06/11/2024 Partial symptomatic epilepsy with complex partial seizures, intractable, without status epilepticus 01/15/2019 Elevated blood pressure 04/25/2016 06/30/19 24 Intracranial hemorrhage 04/25/2016 06/30/19 24 AVM (arteriovenous malformation) brain 6 06/30/2023 AVM (arteriovenous malformation) 12/20/2015 06/30/2023 Bipolar 1 disorder 11/05/2015 06/30/2023 Seizure 11/05/2015 06/30/2023 Immunizations * FLU VACCINE TRI IIV3 SPLIT PF IM (FLUVIRIN)(Given 04/21/2016) * INFLUENZA VACCINE(Given 05/11/2019) * INFLUENZA VACCINE, QUADR. (FLUZONE; FLULAVAL; FLUARIX; AFLURIA QUADRIVALENT; 6MO+), 0.5 ML (IIV4)(Given 05/11/2019) Social History Tobacco Use Types Packs/Day Years [...] Comments Blood Pressure 120/84 06/27/2024 12:19 PM [employer] Pulse 89 06/27/2024 12:19 PM [employer] Temperature 36.8 ??C (98.2 ??F) 06/27/2024 3:26 AM CS T Respiratory Rate 16 06/27/2024 12:19 PM [employer] Oxygen Saturation 97% 06/27/2024 12:19 PM [employer] Inhaled Oxygen Concentration - - Weight 81.6 kg (180 lb) 06/20/2024 1:22 AM [employer] Height 177.8 cm (5' 10 ) 06/20/2024 1:22 AM [employer] Body Mass Index 25.83 06/20/2024 1:22 AM [employer] Procedures * LEVETIRACETAM LEVEL(Performed 06/27/2024) * CARBAMAZEPINE LEVEL TOTAL(Performed 06/27/2024) * VALPROIC ACID LEVEL(Performed 06/27/2024) * TEG 6S PLATELET MAPPING(Performed 06/27/2024) * TEG 6 GLOBAL HEMOSTASIS W/ LYSIS(Performed 06/27/2024) * ALCOHOL ETHYL BLOOD(Performed 06/27/2024) * PT-INR [facility](Performed 06/27/2024) * MAGNESIUM BLOOD(Performed 06/27/2024) * COMPREHENSIVE METABOLIC PANEL(Performed 06/27/2024) * CBC W AUTO DIFFERENTIAL(Performed 06/27/2024) * CT HEAD WO CONTRAST(Performed 06/27/2024) Performed for Traumatic injury of head, initial encounter, Laceration of scalp, initial encounter * LACTIC ACID BLOOD REFLEX TO REPEAT(Performed 06/17/2024) * HYDROXYBUTYRATE BETA(Performed 06/17/2024) * ALCOHOL ETHYL BLOOD(Performed 06/17/2024) * COMPREHENSIVE METABOLIC PANEL(Performed 06/17/2024) * CBC W AUTO DIFFERENTIAL(Performed 06/17/2024) * ED INCISION AND DRAINAGE(Performed 06/15/2024) * XR HAND LEFT 3VW OR MORE(Performed 06/13/2024) Performed for Open wound of left hand without foreign body, unspecified wound type, initial encounter * CULTURE WOUND+GRAM STAIN(Performed 06/13/2024) * URINE DRUG SCREEN IMMUNOASSAY(Performed 06/11/2024) * VALPROIC ACID LEVEL(Performed 06/11/2024) * ALCOHOL ETHYL BLOOD(Performed 06/11/2024) * BASIC METABOLIC PANEL (CALCIUM TOTAL)(Performed 06/11/2024) * CBC W AUTO DIFFERENTIAL(Performed 06/11/2024) * VALPROIC ACID LEVEL(Performed 06/24/2022) Performed for Partial symptomatic epilepsy with complex partial seizures, intractable, without status epilepticus (HCC) * LEVETIRACETAM LEVEL(Performed 06/24/2022) Performed for Partial symptomatic epilepsy with complex partial seizures, intractable, without status epilepticus (HCC) * CARBAMAZEPINE LEVEL TOTAL(Performed 06/24/2022) Performed for Partial symptomatic epilepsy with complex partial seizures, intractable, without status epilepticus (HCC) * COMPREHENSIVE METABOLIC PANEL(Performed 06/24/2022) Performed for Partial symptomatic epilepsy with complex partial seizures, intractable, without status epilepticus (HCC) * CBC W AUTO DIFFERENTIAL(Performed 06/24/2022) Performed for Partial symptomatic epilepsy with complex partial seizures, intractable, without status epilepticus (HCC) * VITAMIN D 25-HYDROXY(Performed 03/25/2022) Performed for Partial symptomatic epilepsy with complex partial seizures, intractable, without status epilepticus (HCC), Vitamin D deficiency * VALPROIC ACID LEVEL(Performed 03/25/2022) Performed for Partial symptomatic epilepsy with complex partial seizures, intractable, without status epilepticus (HCC) * CARBAMAZEPINE LEVEL TOTAL(Performed 03/25/2022) Performed for Partial symptomatic epilepsy with complex partial seizures, intractable, without status epilepticus (HCC) * LEVETIRACETAM LEVEL(Performed 03/25/2022) Performed for Partial symptomatic epilepsy with complex partial seizures, intractable, without status epilepticus (HCC) * COMPREHENSIVE METABOLIC PANEL(Performed 03/25/2022) Performed for Partial symptomatic epilepsy with complex partial seizures, intractable, without status epilepticus (HCC) * CBC W AUTO DIFFERENTIAL(Performed 03/25/2022) Performed for Partial symptomatic epilepsy with complex partial seizures, intractable, without status epilepticus (HCC) * LAB MISC TEST(Performed 01/11/2019) Performed for Partial symptomatic epilepsy with complex partial seizures, intractable, without status epilepticus (HCC) * CARBAMAZEPINE LEVEL TOTAL(Performed 01/11/2019) Performed for Partial symptomatic epilepsy with complex partial seizures, intractable, without status epilepticus (HCC) * LEVETIRACETAM LEVEL(Performed 01/11/2019) Performed for Partial symptomatic epilepsy with complex partial seizures, intractable, without status epilepticus (HCC) * COMPREHENSIVE METABOLIC PANEL(Performed 01/11/2019) Performed for Partial symptomatic epilepsy with complex partial seizures, intractable, without status epilepticus (HCC) * CBC W AUTO DIFFERENTIAL(Performed 01/11/2019) Performed for Partial symptomatic epilepsy with complex partial seizures, intractable, without status epilepticus (HCC) * LEVETIRACETAM LEVEL(Performed 02/01/2018) Performed for Partial symptomatic epilepsy with complex partial seizures, intractable, without status epilepticus (HCC) * VALPROIC ACID LEVEL(Performed 02/01/2018) Performed for Partial symptomatic epilepsy with complex partial seizures, intractable, without status epilepticus (HCC) * CARBAMAZEPINE LEVEL TOTAL(Performed 02/01/2018) Performed for Partial symptomatic epilepsy with complex partial seizures, intractable, without status epilepticus (HCC) * COMPREHENSIVE METABOLIC PANEL(Performed 02/01/2018) Performed for Partial symptomatic epilepsy with complex partial seizures, intractable, without status epilepticus (HCC) * CBC W AUTO DIFFERENTIAL(Performed 02/01/2018) Performed for Partial symptomatic epilepsy with complex partial seizures, intractable, without status epilepticus (HCC) * CK ISOENZYMES PANEL(Performed 05/04/2017) * VALPROIC ACID LEVEL(Performed 05/04/2017) * CARBAMAZEPINE LEVEL TOTAL(Performed 05/04/2017) * COMPREHENSIVE METABOLIC PANEL(Performed 05/04/2017) * CBC W AUTO DIFFERENTIAL(Performed 05/04/2017) * CBC W AUTO DIFFERENTIAL(Performed 05/04/2017) * IR CAROTID CEREBRAL ANGIOGRAM(Performed 08/31/2016) * IR CAROTID CEREBRAL ANGIOGRAM(Performed 08/31/2016) * IR US GUIDE VASCULAR ACCESS(Performed 08/31/2016) * IR CAROTID CEREBRAL ANGIOGRAM(Performed 08/31/2016) * IR CAROTID CEREBRAL ANGIOGRAM(Performed 08/31/2016) * CBC W AUTO DIFFERENTIAL(Performed 08/31/2016) * COMPREHENSIVE METABOLIC PANEL(Performed 08/31/2016) * PT-INR [facility](Performed 08/31/2016) * CBC W AUTO DIFFERENTIAL(Performed 08/31/2016) * MRI BRAIN WWO CONTRAST(Performed 06/22/2016) * CREATININE BLOOD - POCT (IP) [facility](Performed 06/22/2016) * PHOSPHORUS BLOOD(Performed 05/01/2016) * MAGNESIUM BLOOD(Performed 05/01/2016) * BASIC METABOLIC PANEL (CALCIUM TOTAL)(Performed 05/01/2016) * DIFFERENTIAL MANUAL(Performed 05/01/2016) * CBC W AUTO DIFFERENTIAL(Performed 05/01/2016) * CBC W AUTO DIFFERENTIAL(Performed 05/01/2016) * PHOSPHORUS BLOOD(Performed 04/30/2016) * MAGNESIUM BLOOD(Performed 04/30/2016) * BASIC METABOLIC PANEL (CALCIUM TOTAL)(Performed 04/30/2016) * CBC W AUTO DIFFERENTIAL(Performed 04/30/2016) * CBC W AUTO DIFFERENTIAL(Performed 04/30/2016) * CT HEAD WO CONTRAST(Performed 04/29/2016) * BASIC METABOLIC PANEL (CALCIUM TOTAL)(Performed 04/29/2016) * PHOSPHORUS BLOOD(Performed 04/29/2016) * MAGNESIUM BLOOD(Performed 04/29/2016) * CBC W AUTO DIFFERENTIAL(Performed 04/29/2016) * CBC W AUTO DIFFERENTIAL(Performed 04/29/2016) * CT HEAD WO CONTRAST(Performed 04/28/2016) * BASIC METABOLIC PANEL (CALCIUM TOTAL)(Performed 04/28/2016) * PHOSPHORUS BLOOD(Performed 04/28/2016) * MAGNESIUM BLOOD(Performed 04/28/2016) * CBC W AUTO DIFFERENTIAL(Performed 04/28/2016) * CBC W AUTO DIFFERENTIAL(Performed 04/28/2016) * IR EMBOLIZATION TRANSCATH THPY(Performed 04/27/2016) * IR CAROTID CEREBRAL ANGIOGRAM(Performed 04/27/2016) * IR EMBOLIZATION TRANSCATH THPY(Performed 04/27/2016) * IR 3D RENDERING(Performed 04/27/2016) * IR VASCULAR CLOSURE DEVICE(Performed 04/27/2016) * CT ANGIO BRAIN STEREOTACTIC(Performed 04/27/2016) * TYPE + SCREEN PANEL(Performed 04/27/2016) * BASIC METABOLIC PANEL (CALCIUM TOTAL)(Performed 04/27/2016) * PHOSPHORUS BLOOD(Performed 04/27/2016) * MAGNESIUM BLOOD(Performed 04/27/2016) * CBC W AUTO DIFFERENTIAL(Performed 04/27/2016) * CBC W AUTO DIFFERENTIAL(Performed 04/27/2016) * CBC W AUTO DIFFERENTIAL(Performed 04/26/2016) * BASIC METABOLIC PANEL (CALCIUM TOTAL)(Performed 04/26/2016) * PHOSPHORUS BLOOD(Performed 04/26/2016) * MAGNESIUM BLOOD(Performed 04/26/2016) * CBC W AUTO DIFFERENTIAL(Performed 04/26/2016) * BASIC METABOLIC PANEL (CALCIUM TOTAL)(Performed 04/25/2016) * PHOSPHORUS BLOOD(Performed 04/25/2016) * MAGNESIUM BLOOD(Performed 04/25/2016) * CBC W AUTO DIFFERENTIAL(Performed 04/25/2016) * CBC W AUTO DIFFERENTIAL(Performed 04/25/2016) * CT HEAD WO CONTRAST(Performed 04/24/2016) * PHOSPHORUS BLOOD(Performed 04/24/2016) * MAGNESIUM BLOOD(Performed 04/24/2016) * BASIC METABOLIC PANEL (CALCIUM TOTAL)(Performed 04/24/2016) * CBC W AUTO DIFFERENTIAL(Performed 04/24/2016) * CBC W AUTO DIFFERENTIAL(Performed 04/24/2016) * PTT [facility](Performed 04/23/2016) * PT-INR [facility](Performed 04/23/2016) * TYPE + SCREEN PANEL(Performed 04/23/2016) * PATHOLOGY REVIEW TEG(Performed 04/23/2016) * TEG PLATELET MAPPING(Performed 04/23/2016) * CT HEAD WO CONTRAST(Performed 04/23/2016) * BASIC METABOLIC PANEL (CALCIUM TOTAL)(Performed 04/23/2016) * CBC W AUTO DIFFERENTIAL(Performed 04/23/2016) * CBC W AUTO DIFFERENTIAL(Performed 04/23/2016) * BASIC METABOLIC PANEL (CALCIUM TOTAL)(Performed 04/22/2016) * CBC W AUTO DIFFERENTIAL(Performed 04/22/2016) * CBC W AUTO DIFFERENTIAL(Performed 04/22/2016) * VALPROIC ACID LEVEL(Performed 04/21/2016) * CARBAMAZEPINE LEVEL TOTAL(Performed 04/21/2016) * EKG 12-LEAD(Performed 04/21/2016) * CBC W AUTO DIFFERENTIAL(Performed 04/20/2016) * BASIC METABOLIC PANEL (CALCIUM TOTAL)(Performed 04/20/2016) * CBC W AUTO DIFFERENTIAL(Performed 04/20/2016) * CT HEAD WO CONTRAST(Performed 04/20/2016) * BASIC METABOLIC PANEL (CALCIUM TOTAL)(Performed 04/20/2016) * CBC W AUTO DIFFERENTIAL(Performed 04/20/2016) * CBC W AUTO DIFFERENTIAL(Performed 04/20/2016) * IR CAROTID CEREBRAL ANGIOGRAM(Performed 04/20/2016) * IR CAROTID CEREBRAL ANGIOGRAM(Performed 04/20/2016) * IR EMBOLIZATION TRANSCATH THPY(Performed 04/20/2016) * IR EMBOLIZATION TRANSCATH THPY(Performed 04/20/2016) * BLOOD GASES ART COMPLETE [facility] OR(Performed 04/20/2016) * BLOOD GASES ARTERIAL(Performed 04/20/2016) * TYPE + SCREEN PANEL(Performed 04/20/2016) * PT-INR [facility](Performed 04/20/2016) * BASIC METABOLIC PANEL (CALCIUM TOTAL)(Performed 04/20/2016) * DIFFERENTIAL MANUAL(Performed 04/20/2016) * CBC W AUTO DIFFERENTIAL(Performed 04/20/2016) * CBC W AUTO DIFFERENTIAL(Performed 04/20/2016) * IR CAROTID CEREBRAL ANGIOGRAM(Performed 03/27/2016) * IR 3D RENDERING(Performed 03/27/2016) * IR CAROTID CEREBRAL ANGIOGRAM(Performed 03/27/2016) * IR CAROTID CEREBRAL ANGIOGRAM(Performed 03/27/2016) * LAB HISTORICAL RESULTS-ONBASE(Performed 03/26/2016) * LAB HISTORICAL RESULTS-ONBASE(Performed 03/26/2016) * LAB HISTORICAL RESULTS-ONBASE(Performed 03/26/2016) Results * TEG 6 GLOBAL HEMOSTASIS W/ LYSIS (06/27/2024 4:55 AM [employer]) Pathologist [facility] Citrated Kaolin R (Reaction Time) 4.7 4.6 - 9.1 min 06/27/2024 6:09 AM [facility] Citrated Kaolin LY30 (Lysis) 0.5 0.0 - 2.6 % 06/27/2024 6:09 AM [facility] Citrated Functional Fibrinogen MA (Max Amplitude) 18.0 15.0 - 32.0 mm 06/27/2024 6:09 AM [facility] Citrated RapidTEG MA (Max Amplitude) 60.6 52.0 - 70.0 mm 06/27/2024 6:09 AM [facility] Blood BLOOD SPECIMEN / Unknown Venipuncture / Unknown 06/27/2024 4:55 AM [employer] 06/27/2024 5:10 AM [facility] Shama Hutchins MD LAB - HEMATOLOGY ORD ERABLES Performing Organization Address City/State/[facility] Co de Phone Number [address] [address] [phone] * (ABNORMAL) TEG 6S PLATELET MAPPING (06/27/2024 4:55 AM [employer]) [facility] TEGPLM (Max Amplitude) Koalin 60.0 53.0 - 68.0 mm 06/27/2024 6:09 AM [facility] TEGPLM (Max Amplitude) ACTF 7.3 2.0 - 19.0 mm 06/27/2024 6:09 AM [facility] TEGPLM (Max Amplitude) ADP 34.1(L) 45.0 - 69.0 mm 06/27/2024 6:09 AM [facility] Comment:ADP MA below normal range. Inhibition present. TEGPLM (Max Amplitude) AA 44.3(L) 51.0 - 71.0 mm 06/27/2024 6:09 AM [facility] Comment:AA MA below normal r cleo. Inhibition present. TEGPLM %Inhibition ADP 49.1(H) 0.0 - 17.0 % 06/27/2024 6:09 AM [employer] [facility] TEGPLM %Inhibition AA 29.8(H) 0.0 - 11.0 % 06/27/2024 6:09 AM [facility] TEGPLM %Aggregation ADP 50.9(L) 83.0 - 100.0 % 06/27/2024 6:09 AM [facility] TEGPLM % Aggregation AA 70.2(L) 89.0 - 100.0 % 06/27/2024 6:09 AM [facility] Blood BLOOD SPECIMEN / Unknown Venipuncture / Unknown 06/27/2024 4:55 AM [employer] 06/27/2024 5:10 AM [employer] Shama Hutchins MD LAB - HEMATOLOGY ORD ERABLES [facility] [address] [place] [address], [place] [phone] * PT-INR [facility] (06/27/2024 4:55 AM [employer]) Only the most recent of4 resultswithin the time period is included. PT 12.2 12.1 - 14.8 Seconds 06/27/2024 6:22 AM [facility] INR 0.9 See Comment 06/27/2024 6:22 AM [facility] Comment:The suggested therap eutic range for standard coumadin (warfarin) therapy is an INR of 2.0-3.0. For high-risk patients (Mechanical Mitral Valve Prosthesis, etc.), the suggested prophylactic therapeutic range is an INR of 2.5-3.5. Blood BLOOD SPECIMEN / Unknown Venipuncture / Unknown 06/27/2024 4:55 AM [employer] 06/27/2024 5:56 AM [employer] Shama Hutchins MD LAB - COAGULATION OR DERABLES [facility] [address] [place] [address], [place] [phone] * LEVETIRACETAM LEVEL (06/27/2024 4:55 AM [employer]) Only the most recent of5 resultswithin the time period is included. Pathologist [facility] Levetiracetam 30 10 - 40 ug/mL 06/29/2024 6:20 AM [employer] [facility] Comment: INTERPRETIVE INFORMATION: Keppra (Levetiracetam) Therapeutic Range: ??10-40 ug/mL ?Toxic: ??Not well Established Pharmacokinetics of levetiracetam are affected by renal function. Adverse effects may include somnolence, weakness, headache and vomiting. This levetiracetam (Keppra) immunoassay uses the [employer] reagents, which has known cross-reactivity with the drug brivaracetam (Briviact) and may report inaccurate results. Patients transitioning from levetiracetam to brivaracetam or those who are using both medications should not monitor drug concentrations with the [employer] assay. These patients should be monitored using a validated chromatographic methodology that distinguishes between drugs to determine drug concentrations. Performed By: [employer] [address] [place] [address] T[employer] And Tube Repairer: Miguel Pizano MD, PhD CLIA Number: [id number] Blood BLOOD SPECIMEN / Unknown Venipuncture / Unknown 06/27/2024 4:55 AM [employer] 06/27/2024 5:05 AM [employer] Shama Hutchins MD LAB - THERAPEUTIC DR MASTERSON MONITORING ORDERABLES [facility] [email or web address] [facility]) [address] [place] [address], [facility] * (ABNORMAL) CBC W AUTO DIFFERENTIAL (06/27/2024 4:55 AM [employer]) Only the most recent of37 resultswithin the time period is included. [facility] WBC 13.6(H) 4.0 - 10.7 x10E9/L 06/27/2024 5:20 AM [facility] RBC Count 4.25(L) 4.30 - 5.80 x10E12/L 06/27/2024 5:20 AM [facility] Hemoglobin 12.6(L) 13.3 - 17.5 g/dL 06/27/2024 5:20 AM [facility] Hematocrit 37.4(L) 38.7 - 51.1 % 06/27/2024 5:20 AM [facility] MCV 88.0 80.0 - 98.0 fL 06/27/2024 5:20 AM [facility] MCH 29.6 26.7 - 33.6 pg 06/27/2024 5:20 AM [facility] MCHC 33.7 31.7 - 36.3 g/dL 06/27/2024 5:20 AM [facility] RDW-CV 11.9 11.3 - 14.8 % 06/27/2024 5:20 AM [facility] Platelet Count 293 150 - 420 x10E9/L 06/27/2024 5:20 AM [facility] MPV 9.5 7.8 - 11.4 fL 06/27/2024 5:20 AM [facility] Neutrophil % 72.9 41.0 - 74.0 % 06/27/2024 5:20 AM [facility] Lymphocyte % 18.0 17.0 - 47.0 % 06/27/2024 5:20 AM [facility] Monocyte % 6.8 3.0 - 11.0 % 06/27/2024 5:20 AM [facility] Eosinophil % 1.6 0.0 - 7.0 % 06/27/2024 5:20 AM [facility] Basophil % 0.3 0.0 - 1.6 % 06/27/2024 5:20 AM [facility] Immature Granulocytes % 0.4 0.0 - 1.0 % 06/27/2024 5:20 AM [facility] Neutrophil Absolute 9.90(H) 1.60 - 7.50 x10E9/L 06/27/2024 5:20 AM [facility] Lymphocyte Absolute 2.45 1.00 - 4.40 x10E9/L 06/27/2024 5:20 AM [facility] Monocyte Absolute 0.93 0.15 - 1.00 x10E9/L 06/27/2024 5:20 AM [facility] Eosinophil Absolute 0.22 0.00 - 0.60 x10E9/L 06/27/2024 5:20 AM [facility] Basophil Absolute 0.04 0.00 - 0.13 x10E9/L 06/27/2024 5:20 AM [facility] Blood BLOOD SPECIMEN / Unknown Venipuncture / Unknown 06/27/2024 4:55 AM [employer] 06/27/2024 5:11 AM [employer] Shama Hutchins MD LAB - HEMATOLOGY ORD ERABLES [facility] [address] [place] [address], [facility] [phone] * (ABNORMAL) COMPREHENSIVE METABOLIC PANEL (06/27/2024 4:55 AM [facility]) Only the most recent of8 resultswithin the time period is included. BUN 7 7 - 26 mg/dL 06/27/2024 5:40 AM [facility] Creatinine 0.62(L) 0.71 - 1.16 mg/dL 06/27/2024 5:40 AM [facility] Sodium 142 136 - 145 mmol/L 06/27/2024 5:40 AM [facility] Potassium 4.5 3.5 - 4.5 mmol/L 06/27/2024 5:40 AM [facility] Chloride 110(H) 98 - 107 mmol/L 06/27/2024 5:40 AM [facility] CO2 27 22 - 29 mmol/L 06/27/2024 5:40 AM [facility] Glucose 100(H) 70 - 99 mg/dL 06/27/2024 5:40 AM [facility] Calcium 9.1 8.4 - 10.2 mg/dL 06/27/2024 5:40 AM [facility] Protein Total 6.6 6.0 - 8.3 g/dL 06/27/2024 5:40 AM [facility] Albumin 4.0 3.4 - 5.0 g/dL 06/27/2024 5:40 AM [facility] Bilirubin Total 0.3 0.2 - 1.2 mg/dL 06/27/2024 5:40 AM [facility] Alkaline Phosphatase 66 40 - 150 U/L 06/27/2024 5:40 AM [facility] ALT 19 5 - 55 U/L 06/27/2024 5:40 AM [facility] AST 31 5 - 34 U/L 06/27/2024 5:40 AM [facility] Anion Gap 5(L) 6 - 16 06/27/2024 5:40 AM [facility] BUN/Creatinine Ratio 11 7 - 23 06/27/2024 5:40 AM [facility] Osmolality Calculated 292 275 - 295 mOsm/kg 06/27/2024 5:40 AM [facility] Albumin/Globulin Ratio 1.5 1.1 - 2.3 06/27/2024 5:40 AM [facility] eGFR by CKD-EPI >90 >=90 mL/min/1.7 3 m2 06/27/2024 5:40 AM [facility] Blood BLOOD SPECIMEN / Unknown Venipuncture / Unknown 06/27/2024 4:55 AM [employer] 06/27/2024 5:11 AM [employer] Shama Hutchins MD LAB - CHEMISTRY [facility] [address] [address], [facility] [phone] * MAGNESIUM BLOOD (06/27/2024 4:55 AM [employer]) Only the most recent of9 resultswithin the time period is included. Magnesium 2.0 1.6 - 2.6 mg/dL 06/27/2024 5:40 AM [facility] Blood BLOOD SPECIMEN / Unknown Venipuncture / Unknown 06/27/2024 4:55 AM [employer] 06/27/2024 5:11 AM [employer] Shama Hutchins MD LAB - CHEMISTRY TISHA WOODALL [address] [address], [place] [phone] * ALCOHOL ETHYL BLOOD (06/27/2024 4:55 AM [employer]) Only the most recent of3 resultswithin the time period is included. Ethanol (mg/dL) <10 <10 mg/dL 5:40 AM [facility] Ethanol Calculated (g/dL) <0.010 <=0.010 g/dL 06/27/2024 5:40 AM [facility] Blood BLOOD SPECIMEN / Unknown Venipuncture / Unknown 06/27/2024 4:55 AM [employer] 06/27/2024 5:11 AM [employer] Narrative [facility] - 06/27/2024 5:40 AM [employer] Ethanol Interp <10: None Detected. Depression of ELECTRICAL SERVICE TECHNICIAN: >100 mg/dl Potentially Critical: >250 mg/dl Potentially [...] - CHEMISTRY TISHA WOODALL Performing Organization Address City/[facility]/ZIP Co de Phone Number [address] [address], [facility] [phone] * (ABNORMAL) VALPROIC ACID LEVEL (06/27/2024 4:55 AM MANAGER FINANCIAL PLANNING) Only the most recent of7 resultswithin the time period is included. Valproic Acid Total <13(L) 50 - 100 ug/mL 06/27/2024 5:44 AM [facility] Blood BLOOD SPECIMEN / Unknown Venipuncture / Unknown 06/27/2024 4:55 AM MANAGER [employer]CIAL [employer]ANNING 06/27/2024 5:16 AM MANAGER FINANCIAL PLANNING Shama Hutchins MD LAB - CHEMISTRY TISHA WOODALL [address] [address], [facility] [phone] * (ABNORMAL) CARBAMAZEPINE LEVEL TOTAL (06/27/2024 4:55 AM MANAGER [employer]CIAL [employer]ANNING) Only the most recent of7 resultswithin the time period is included. Carbamazepine, trough <1.9(L) 4.0 - 12.0 ug/mL 06/27/2024 5:44 AM MANAGER FINANCIAL PLANNING [facility] Blood BLOOD SPECIMEN / Unknown Venipuncture / Unknown 06/27/2024 4:55 AM MANAGER FINANCIAL PLANNING 06/27/2024 5:16 AM MANAGER FINANCIAL PLANNING Shama Hutchins MD LAB - CHEMISTRY TISHA WOODALL [facility] [address] [place] [id number], [facility] [phone] * CT Head Wo Contrast (06/27/2024 3:53 AM MANAGER [employer]CIAL [employer]ANNING) Only the most recent of6 resultswithin the time period is included. Anatomical Region Laterality Modality Head Computed Tomogra phy 06/27/2024 4:36 AM MANAGER [employer]CIAL PLANNING Impressions 06/27/2024 12:55 PM MANAGER [employer]CIAL PLANNING IMPRESSION: 1.Streak artifact from the embolization material in the right frontal lobe limits evaluation. Within the limitations of this exam, no large acute intracranial hemorrhage or mass effect is identified. 2.A left parietal scalp contusion/hematoma with overlying skin gonzalo. No acute calvarial fractures. > Dictated by Mark Orozco DO (Nut Tapper), 06/27/2024 4:55 AM. IPopeye MD have personally reviewed and interpreted this examination/study. > Interpreting Provider: Popeye Hughes MD on 06/27/2024 12:55 PM Narrative 06/27/2024 12:55 PM MANAGER FINANCIAL PLANNING PROCEDURE: ??CT HEAD WO CONTRAST, DATE/TIME OF EXAM: ??06/27/2024 3:54 AM, LOCATION ??[facility] INDICATION: S09.90XA: Traumatic injury of head, initial [...] DATE/TIME OF EXAM: 06/27/2024 3:54 AM, LOCATION [facility] INDICATION: S09.90XA: Traumatic injury of head, initial [...] fractures. > Dictated by Mark Orozco DO (Nut Tapper), 06/27/2024 4:55AM. I, Popeye Hughes MD have personally reviewed and interpreted this examination/study. > Interpreting Provider: Popeye Hughes MD on 06/27/2024 12:55 PM [address]ama Hutchins MD CT ORDERABLES * (ABNORMAL) LACTIC ACID BLOOD REFLEX TO REPEAT (06/17/2024 9:45 AM MANAGER FIN[employer]CIAL PLANNING) Lactic Acid 3.3(HH) <=2.0 mmol/L 06/17/2024 10:23 AM MANAGER FINANCIAL PLANNING [facility] Blood BLOOD SPECIMEN / Unknown Venipuncture / Unknown 06/17/2024 9:45 AM MANAGER FINANCIAL PLANNING 06/17/2024 9:51 AM MANAGER FINANCIAL PLANNING James Ogden MD LAB - CHEMISTRY TISHA WOODALL Performing Organization Address [facility] Co de Phone Number [facility] [address] [place] [address] * HYDROXYBUTYRATE BETA (06/17/2024 9:45 AM MANAGER FINANCIAL PLANNING) Beta-Hydroxybu tyrate <0.50 <0.50 mmol/L 06/17/2024 10:23 AM MANAGER FINANCIAL PLANNING [facility] Blood BLOOD SPECIMEN / Unknown Venipuncture / Unknown 06/17/2024 9:45 AM MANAGER FINANCIAL PLANNING 06/17/2024 9:51 AM MANAGER FINANCIAL PLANNING Narrative [facility] - 06/17/2024 10:23 AM MANAGER [employer]CIAL [employer]ANNING Results >1.5 mmol/L may be indicative of diabetic ketoacidosis. Use in conjunction with Serum Glucose levels. James Ogden MD LAB - CHEMISTRY TISHA WOODALL Performing Organization Address [facility] Co de Phone Number [facility] [address] [place] [address] * Incision/Drainage (06/15/2024 1:50 AM MANAGER FIN[employer]CIAL [employer]ANNING) Narrative Zane Huynh MD - 06/15/2024 1:50 AM MANAGER FINANCIAL PLANNING Zane Huynh MD ? 06/15/2024 ??2:07 AM [...] Left 3Vw or More (06/13/2024 10:44 AM MANAGER [employer]ANNING) Anatomical Region Laterality Modality Wrist / Hand Digital Radiogra phy 06/13/2024 10:4 5 AM MANAGER FINANCIAL PLANNING Impressions 06/13/2024 11:03 AM MANAGER FINANCIAL PLANNING IMPRESSION: 1. Second digit amputation. 2. No acute osseous abnormality. Report was dictated by Levar Hutchinson MD, ([facility] resident). I, Cristiana Hernández MD have personally reviewed and interpreted this examination/study. > Interpreting Provider: Cristiana Hernández MD on 06/13/2024 11:03 AM Narrative 06/13/2024 11:03 AM MANAGER [employer]CIAL PLANNING PROCEDURE: ??XR HAND LEFT 3VW OR MORE, DATE/TIME OF EXAM: ??06/13/2024 10:45 AM, LOCATION ??[facility] INDICATION: S61.402A: Open wound of left hand [...] DATE/TIME OF EXAM: 06/13/2024 10:45 AM, LOCATION [facility] INDICATION: S61.402A: Open wound of left hand [...] Report was dictated by Levar Hutchinson MD, ([facility] resident). I, Cristiana Hernández MD have personally reviewed and interpreted this examination/study. > Interpreting Provider: Cristiana Hernández MD on 06/13/2024 11:03 AM Ara Saleem MD DIAGNOSTIC IMAGING O RDERABLES * CULTURE WOUND+GRAM STAIN (06/13/2024 10:29 AM MANAGER FIN[employer]CIAL PLANNING) Culture Rare normal skin anand BRIANA 06/16/2024 4:00 PM [facility] MICROBIOLOGY Gram Stain Rare Polymorphonuclear cells 06/16/2024 4:00 PM [facility] MICROBIOLOGY Gram Stain No organisms seen 025 4:00 PM [facility] MICROBIOLOGY Microbiology SPECIMEN FROM WOUND / Unknown Collection / Unknown 06/13/2024 10:29 AM MANAGER [employer]CIAL PLANNING 06/13/2024 10:34 AM MANAGER FINANCIAL PLANNING Ara Saleem MD LAB - MICROBIOLOGY O RDERABLES [facility] [address] [place] [address], [facility] [phone] * (ABNORMAL) URINE DRUG SCREEN IMMUNOASSAY (06/11/2024 11:34 AM MANAGER FINANCIAL PLANNING) Amphetamines Screen Urine Positive(A) Negative : < 1000 ng/mL 06/11/2024 12:15 PM [facility] Comment: Positive urine amphetamine screening results should be confirmed by another generally accepted non-immunological method such as gas chromatography or mass spectrometry. ? Barbiturates Screen Urine Negative Negative : < 200 ng/mL 06/11/2024 12:15 PM [facility] Benzodiazepine Screen Urine Negative Negative : < 200 ng/mL 06/11/2024 12:15 PM [facility] Opiates Urine Negative Negative : < 300 ng/mL 06/11/2024 12:15 PM [facility] Cocaine Metabolites Urine Negative Negative : < 300 ng/mL 06/11/2024 12:15 PM [facility] Phencyclidine Screen Urine Negative Negative : < 25 ng/ml 06/11/2024 12:15 PM [facility] Cannabinoids Screen Urine Positive(A) Negative : <50 ng/mL 06/11/2024 12:15 PM [facility] Comment:Positive urine canna binoids (THC) screening results should be confirmed by another generally accepted non-immunological method such as gas chromatography or mass spectrometry. Methadone Screen Urine Negative Negative : < 300 ng/mL 06/11/2024 12:15 PM [facility] Fentanyl Screen Urine Negative Negative : <1.5 ng/mL 06/11/2024 12:15 PM [facility] Urine URINE / Unknown Collection / Unknown 06/11/2024 11:34 AM MANAGER FIN[employer]CIAL PLANNING 06/11/2024 11:45 AM [facility] Narrative [facility] - 06/11/2024 12:15 PM MANAGER FINANCIAL PLANNING The Urine Toxicology Screening Panel does not screen for Propoxyphene, Meprobamate, Carisoprodol, Trazodone, xfdo-sga-wpxettc medications and/or volatiles (Acetone, Isopropanol, Methanol or Ethylene Glycol). Ethanol, Salicylate, Acetaminophen, Tricyclic Antidepressants and several therapeutic drugs may be individually assayed in serum or plasma specimen. Toxicology testing by the [facility] is an aid to medical diagnosis and treatment of patients. No documented chain of custody was maintained. Results are intended to be used for clinical purposes only. ? Shivani Mccall MD LAB - URINE CHEMISTR Y ORDERABLES Performing Organization Address [facility]/State/[facility] Co de Phone Number [address] [address], [place] [phone] * (ABNORMAL) BASIC METABOLIC PANEL (CALCIUM TOTAL) (06/11/2024 10:52 AM [facility]) Only the most recent of14 resultswithin the time period is included. BUN 17 7 - 26 mg/dL 06/11/2024 11:30 AM [facility] Creatinine 0.64(L) 0.71 - 1.16 mg/dL 06/11/2024 11:30 AM [facility] Sodium 138 136 - 145 mmol/L 06/11/2024 11:30 AM [facility] Potassium 3.9 3.5 - 4.5 mmol/L 06/11/2024 11:30 AM [facility] Chloride 106 98 - 107 mmol/L 06/11/2024 11:30 AM [facility] CO2 24 22 - 29 mmol/L 06/11/2024 11:30 AM [facility] Glucose 133(H) 70 - 99 mg/dL 06/11/2024 11:30 AM [facility] Calcium 8.9 8.4 - 10.2 mg/dL 06/11/2024 11:30 AM [facility] Anion Gap 8 6 - 16 06/11/2024 11:30 AM [facility] BUN/Creatinine Ratio 27(H) 7 - 23 06/11/2024 11:30 AM [facility] Osmolality Calculated 289 275 - 295 mOsm/kg 06/11/2024 11:30 AM [facility] eGFR by CKD-EPI >90 >=90 mL/min/1.7 3 m2 06/11/2024 11:30 AM [facility] Blood BLOOD SPECIMEN / Unknown Venipuncture / Unknown 06/11/2024 10:52 AM [facility] 06/11/2024 11:04 AM [facility] Shivani Mccall MD LAB - CHEMISTRY TISHA WOODALL Performing Organization Address [facility]/State/ZIP Co de Phone Number [facility] [address] [place] [address], [facility] [phone] * VITAMIN D 25-HYDROXY (03/25/2022 9:39 AM CDT) Pathologist [facility] Vitamin D, 25 Hydroxy 59.0 30.0 - 80.0 ng/mL 03/25/2022 11:06 AM CDT [facility] Comment: The recommendations for 25-Hydroxy Vitamin D clinical decision points are as follows: ? Deficient: ? <20.0 ng/mL ? Insufficient: ? 20.0 - 29.9 ng/mL ? Sufficient: ? 30.0 - 100.0 ng/mL ? Potential Toxicity: ??>100 ng/mL Reference: The Endocrine Society Clinical Practice Guidelines. 2011 If the 25-Hydroxy Vitamin D results are inconsitent with clinical evidence, it is recommended that follow-up testing using a method such as LC/MS/MS be performed to confirm the result. ? Blood BLOOD SPECIMEN / Unknown Lab Venipuncture / Unknown 03/25/2022 9:39 AM CDT 03/25/2022 10:15 AM CDT Anupam Gneao MD LAB - CHEMISTRY ORDERABLES Performing Organization Address City/[facility]/ZIP Co de Phone Number [address] [address], [facility] [phone] * LAB MISC TEST (01/11/2019 4:20 PM CDT) Pathologist [facility] Test Name SEE SCANNED REPORT 01/14/2019 9:05 AM CDT [facility] Blood BLOOD SPECIMEN / Unknown Lab Venipuncture / Unknown 01/11/2019 4:20 PM CDT 01/11/2019 4:23 PM CDT Montrell Hook DO LAB SEND OUT Performing Organization Address City/[facility]/ZIP Co de Phone Number [facility] [address] [place] [address] * (ABNORMAL) CK ISOENZYMES PANEL (05/04/2017 4:22 PM MANAGER FINANCIAL PLANNING) CK Total 222(H) 24 - 204 U/L [facility] Macro Type 2 0 Not Observed % [facility] CK-MM 100 97 - 100 % [facility] Macro Type 1 0 Not Observed % [facility] ([facility]) CK-MB 0 0 - 3 % [facility] CK-BB 0 0 % [facility] Blood specimen (specimen) BLOOD SPECIMEN / Unknown 05/04/2017 4:22 PM MANAGER FINANCIAL PLANNING 05/04/2017 4:29 PM MANAGER FINANCIAL PLANNING Narrative [facility] ([facility]) - 05/07/2017 4:20 PM MANAGER FINANCIAL PLANNING Performed at: ??01 - [facility] [address] [place], [place] ??[id number] Mold Sheet Cleaner: Alexander Flores PhD, Phone: ??[phone] Anupam Genao MD LAB - CHEMISTRY ORDERABLES [facility] ([facility]) [address] [place] [address] * IR CAROTID CEREBRAL ANGIOGRAM (08/31/2016 12:19 PM CDT) Only the most recent of10 resultswithin the time period is included. 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 on 08/31/2016 12:29 PM . I, Dr. JESSENIA BROWN M.D. have personally reviewed and interpreted this examination/study. This report was electronically signed by JESSENIA BROWN M.D. ??on 09/06/2016 3:32 PM . Narrative 09/06/2016 3:32 PM CDT Procedure: Cerebral angiogram 08-31-16 Comparison study: Apr 2016 History: The patient a 30 years -year-old Male. Who presents with avm ??He is here for catheter angiography to look for recurrent AVM. Client Onboarding Analyst: Varghese Almeida Vessels: Right internal carotid artery angiogram: Cerebral Right external carotis artery angiogram: Cerebral Left internal carotid artery angiogram: Cerebral Left vertebral artery angiogram: Cerebral Right femoral artery angiogram Anesthesia: Local anesthesia with conscious sedation Procedural detail: The risks, benefits, and alternatives to procedure were discussed in detail with the patient and his family. These included but were not limited to the risk of blood loss, vessel injury, stroke, renal injury, and contrast allergy. The patient was brought to the biplane angiography suite where he underwent prep and drape procedures. Ultrasound was used to localize and cannulate right femoral artery. ??A 6 Palauan 30 cm Brite tip sheath was placed in the right femoral artery and a 5 Palauan angled glide wire was navigated into the aortic arch. The catheter was used to select the left subclavian artery followed by the left vertebral artery and a cerebral angiogram was obtained. The catheter was returned to the arch and used to select the left common carotid artery followed by the left internal carotid artery and a cerebral angiogram was obtained. The catheter was returned to the arch and used to select the brachiocephalic artery followed by the right common carotid artery and finally the right internal as well as external carotid artery and a cerebral angiogram was obtained. The right femoral artery angiogram was obtained through the sheath. All catheters and sheaths were removed from the arterial system. Hemostasis was achieved using a 6 Palauan Angio-Seal closure device. Hemostasis was immediate at the end of the closure procedure. The right dorsalis pedis pulse was palpable at the end of the closure procedure. The patient tolerated the procedure without immediate complications. He was returned to the recovery area and hemodynamically stable condition neurologically unchanged. The estimated blood loss was less than 10 mL. A total of ??5.7 ??minutes of fluoroscopic time and 75 ml of Omnipaque-300 contrast reutilized the study. Findings: There was good arterial, capillary, and venous opacification of all angiographic runs. The left vertebral artery angiogram reveals a V3, V4, and vertebrobasilar junction that are normal in course and caliber. The major vessels to the cerebellum are normal in course and caliber. The basilar artery and posterior cerebral arteries are also normal in course and caliber. The venous drainage is also normal. The left internal carotid artery angiogram reveals a normal course and caliber the intracranial internal carotid artery. The middle cerebral artery and anterior cerebral artery are also normal in course and caliber as is the venous drainage. The right internal carotid artery angiogram reveals a normal course and caliber the intracranial internal carotid artery. The middle cerebral artery and anterior cerebral artery are also normal in course and caliber as is the venous drainage. ??The right external carotid artery reveals a normal course and caliber. The right femoral artery angiogram reveals a puncture site above the femoral bifurcation. Procedure Note Jessenia Brown MD - 09/03/2017 Procedure: Cerebral angiogram 08-31-16 Comparison study: Apr 2016 History: The patient a 30 years -year-old Male. Who presents with avm Heis here for catheter angiography to look for recurrent AVM. Client Onboarding Analyst: Varghese Carroll Copisela Vessels: Right internal carotid artery angiogram: Cerebral Right external carotis artery angiogram: Cerebral Left internal carotid artery angiogram: Cerebral Left vertebral artery angiogram: Cerebral Right femoral artery angiogram Anesthesia: Local anesthesia with conscious sedation Procedural detail: The risks, benefits, and alternatives to procedure werediscussed in detail with the patient and his family. These included butwere not limited to the risk of blood loss, vessel injury, stroke, renalinjury, and contrast allergy. The patient was brought to the biplane angiography suite where he underwentprep and drape procedures. Ultrasound was used to localize and cannulateright femoral artery. A 6 Palauan 30 cm Brite tip sheath was placed in theright femoral artery and a 5 Palauan angled glide wire was navigated into the aortic arch. The catheterwas used to select the left subclavian artery followed by the leftvertebral artery and a cerebral angiogram was obtained. The catheter wasreturned to the arch and used to select the left common carotid artery followed by the left internal carotidartery and a cerebral angiogram was obtained. The catheter was returned tothe arch and used to select the brachiocephalic artery followed by theright common carotid artery and finally the right internal as well as external carotid artery and a cerebralangiogram was obtained. The right femoral artery angiogram was obtainedthrough the sheath. All catheters and sheaths were removed from the arterial system.Hemostasis was achieved using a 6 Palauan Angio-Seal closure device.Hemostasis was immediate at the end of the closure procedure. The rightdorsalis pedis pulse was palpable at the end of the closure procedure. The patient tolerated the procedure without immediate complications. Hewas returned to the recovery area and hemodynamically stable conditionneurologically unchanged. The estimated blood loss was less than 10 mL. A total of 5.7 minutes of fluoroscopic time and 75 ml of Omnipaque-300contrast reutilized the study. Findings: There was good arterial, capillary, and venous opacification of allangiographic runs. The left vertebral artery angiogram reveals a V3, V4, and vertebrobasilarjunction that are normal in course and caliber. The major vessels to thecerebellum are normal in course and caliber. The basilar artery andposterior cerebral arteries are also normal in course and caliber. The venous drainage is also normal. The left internal carotid artery angiogram reveals a normal course andcaliber the intracranial internal carotid artery. The middle cerebralartery and anterior cerebral artery are also normal in course and caliberas is the venous drainage. The right internal carotid artery angiogram reveals a normal course andcaliber the intracranial internal carotid artery. The middle cerebralartery and anterior cerebral artery are also normal in course and caliberas is the venous drainage. The right external carotid artery reveals a normal course and caliber. The right femoral artery angiogram reveals a puncture site above thefemoral bifurcation. 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 JESSENIA Pastrana M.D. have personally reviewed and interpreted thisexamination/study. This report was electronically signed by JESSENIA BROWN M.D. on 09/06/20163:32 PM . 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 on 08/31/2016 12:[address] JESSENIA Pastrana M.D. have personally reviewed and interpreted this examination/study. This report was electronically signed by JESSENIA BROWN M.D. ??on 09/06/2016 3:32 PM . Narrative 09/06/2016 3:32 PM CDT Procedure: Cerebral angiogram 08-31-16 Comparison study: Apr 2016 History: The patient a 30 years -year-old Male. Who presents with avm ??He is here for catheter angiography to look for recurrent AVM. Client Onboarding Analyst: Varghese Almeida Vessels: Right internal carotid artery angiogram: Cerebral Right external carotis artery angiogram: Cerebral Left internal carotid artery angiogram: Cerebral Left vertebral artery angiogram: Cerebral Right femoral artery angiogram Anesthesia: Local anesthesia with conscious sedation Procedural detail: The risks, benefits, and alternatives to procedure were discussed in detail with the patient and his family. These included but were not limited to the risk of blood loss, vessel injury, stroke, renal injury, and contrast allergy. The patient was brought to the biplane angiography suite where he underwent prep and drape procedures. Ultrasound was used to localize and cannulate right femoral artery. ??A 6 Palauan 30 cm Brite tip sheath was placed in the right femoral artery and a 5 Palauan angled glide wire was navigated into the aortic arch. The catheter was used to select the left subclavian artery followed by the left vertebral artery and a cerebral angiogram was obtained. The catheter was returned to the arch and used to select the left common carotid artery followed by the left internal carotid artery and a cerebral angiogram was obtained. The catheter was returned to the arch and used to select the brachiocephalic artery followed by the right common carotid artery and finally the right internal as well as external carotid artery and a cerebral angiogram was obtained. The right femoral artery angiogram was obtained through the sheath. All catheters and sheaths were removed from the arterial system. Hemostasis was achieved using a 6 Palauan Angio-Seal closure device. Hemostasis was immediate at the end of the closure procedure. The right dorsalis pedis pulse was palpable at the end of the closure procedure. The patient tolerated the procedure without immediate complications. He was returned to the recovery area and hemodynamically stable condition neurologically unchanged. The estimated blood loss was less than 10 mL. A total of ??5.7 ??minutes of fluoroscopic time and 75 ml of Omnipaque-300 contrast reutilized the study. Findings: There was good arterial, capillary, and venous opacification of all angiographic runs. The left vertebral artery angiogram reveals a V3, V4, and vertebrobasilar junction that are normal in course and caliber. The major vessels to the cerebellum are normal in course and caliber. The basilar artery and posterior cerebral arteries are also normal in course and caliber. The venous drainage is also normal. The left internal carotid artery angiogram reveals a normal course and caliber the intracranial internal carotid artery. The middle cerebral artery and anterior cerebral artery are also normal in course and caliber as is the venous drainage. The right internal carotid artery angiogram reveals a normal course and caliber the intracranial internal carotid artery. The middle cerebral artery and anterior cerebral artery are also normal in course and caliber as is the venous drainage. ??The right external carotid artery reveals a normal course and caliber. The right femoral artery angiogram reveals a puncture site above the femoral bifurcation. Procedure Note Jessenia Brown MD - 09/03/2017 Procedure: Cerebral angiogram 08-31-16 Comparison study: Apr 2016 History: The patient a 30 years -year-old Male. Who presents with avm Heis here for catheter angiography to look for recurrent AVM. Client Onboarding Analyst: Varghese Carroll Coppens Vessels: Right internal carotid artery angiogram: Cerebral Right external carotis artery angiogram: Cerebral Left internal carotid artery angiogram: Cerebral Left vertebral artery angiogram: Cerebral Right femoral artery angiogram Anesthesia: Local anesthesia with conscious sedation Procedural detail: The risks, benefits, and alternatives to procedure werediscussed in detail with the patient and his family. These included butwere not limited to the risk of blood loss, vessel injury, stroke, renalinjury, and contrast allergy. The patient was brought to the biplane angiography suite where he underwentprep and drape procedures. Ultrasound was used to localize and cannulateright femoral artery. A 6 Pal[place] 30 cm Brite tip sheath was placed in theright femoral artery and a 5 [place] angled glide wire was navigated into the aortic arch. The catheterwas used to select the left subclavian artery followed by the leftvertebral artery and a cerebral angiogram was obtained. The catheter wasreturned to the arch and used to select the left common carotid artery followed by the left internal carotidartery and a cerebral angiogram was obtained. The catheter was returned tothe arch and used to select the brachiocephalic artery followed by theright common carotid artery and finally the right internal as well as external carotid artery and a cerebralangiogram was obtained. The right femoral artery angiogram was obtainedthrough the sheath. All catheters and sheaths were removed from the arterial system.Hemostasis was achieved using a 6 [place] Angio-Seal closure device.Hemostasis was immediate at the end of the closure procedure. The rightdorsalis pedis pulse was palpable at the end of the closure procedure. The patient tolerated the procedure without immediate complications. Hewas returned to the recovery area and hemodynamically stable conditionneurologically unchanged. The estimated blood loss was less than 10 mL. A total of 5.7 minutes of fluoroscopic time and 75 ml of Omnipaque-300contrast reutilized the study. Findings: There was good arterial, capillary, and venous opacification of allangiographic runs. The left vertebral artery angiogram reveals a V3, V4, and vertebrobasilarjunction that are normal in course and caliber. The major vessels to thecerebellum are normal in course and caliber. The basilar artery andposterior cerebral arteries are also normal in course and caliber. The venous drainage is also normal. The left internal carotid artery angiogram reveals a normal course andcaliber the intracranial internal carotid artery. The middle cerebralartery and anterior cerebral artery are also normal in course and caliberas is the venous drainage. The right internal carotid artery angiogram reveals a normal course andcaliber the intracranial internal carotid artery. The middle cerebralartery and anterior cerebral artery are also normal in course and caliberas is the venous drainage. The right external carotid artery reveals a normal course and caliber. The right femoral artery angiogram reveals a puncture site above thefemoral bifurcation. 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 JESSENIA Pastrana M.D. have personally reviewed and interpreted thisexamination/study. This report was electronically signed by JESSENIA BROWN M.D. on 09/06/20163:32 PM . Jessenia Brown MD IR ORDERABLES * MRI BRAIN WWO CONTRAST (06/22/2016 4:48 PM MANAGER FINANCIAL PLANNING) Anatomical Region Laterality Modality Head Other Impressions 06/23/2016 8:30 AM MANAGER FINANCIAL PLANNING IMPRESSION: 1. 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 This report was approved ??by Ethan Pearson M.D. ?? on 06/23/2016 8:[address] LUKE Pastrana M.D. have personally reviewed and interpreted this examination/study. This report was electronically signed by LUKE SHARP M.D. ??on 06/23/2016 8:30 AM . Narrative 06/23/2016 8:30 AM MANAGER [employer]ANCIAL PLANNING EXAMINATION: Magnetic resonance imaging (MRI) of the brain without and with contrast HISTORY: Arteriovenous malformation status post embolization on 04/27/2016 TECHNIQUE: MRI of the brain was performed prior to and following the uneventful administration of 10 mL Gadavist intravenous gadolinium contrast according to a tumor protocol. FINDINGS: Comparison is made to CT performed 04/29/2016. Along the medial aspect of the right frontal coil embolization material is an evolving intraparenchymal hematoma measuring 6.5 cm AP x 4.7 cm TV x 4.7 cm CC (image 108, series 14 and image 15, series 5) with predominantly T1 and T2 hyperintense blood products. Accounting for differences in modality, the hematoma is decreased in size. There is mild residual surrounding vasogenic edema which is also decreased. This exerts regional mass effect without significant midline shift. No evidence of acute cerebral infarction is seen. The ventricles are nondilated. No other enhancing lesions are identified. The corpus callosum and sella appear normal. Other than hari cisterna magna, the posterior fossa, brainstem, and craniocervical junction appear normal. The visualized portions of the orbits, paranasal sinuses, and mastoids appear normal. Normal flow voids are demonstrated in the carotid arteries and basilar artery. The calvarium and visualized cervical spine appear normal. Procedure Note Luke Sharp MD - 09/03/2017 EXAMINATION: Magnetic resonance imaging (MRI) of the brain without andwith contrast HISTORY: Arteriovenous malformation status post embolization on04/27/2016 TECHNIQUE: MRI of the brain was performed prior to and following theuneventful administration of 10 mL Gadavist intravenous gadoliniumcontrast according to a tumor protocol. FINDINGS: Comparison is made to CT performed 04/29/2016. Along the medial aspect of the right frontal coil embolization material isan evolving intraparenchymal hematoma measuring 6.5 cm AP x 4.7 cm TV x4.7 cm CC (image 108, series 14 and image 15, series 5) with predominantlyT1 and T2 hyperintense blood products. Accounting for differences in modality, the hematoma isdecreased in size. There is mild residual surrounding vasogenic edemawhich is also decreased. This exerts regional mass effect withoutsignificant midline shift. No evidence of acute cerebral infarction is seen. The ventricles arenondilated. No other enhancing lesions are identified. The corpus callosumand sella appear normal. Other than hari cisterna magna, the posteriorfossa, brainstem, and craniocervical junction appear normal. The visualized portions of the orbits, paranasal sinuses, and mastoidsappear normal. Normal flow voids are demonstrated in the carotid arteriesand basilar artery. The calvarium and visualized cervical spine appearnormal. IMPRESSION IMPRESSION: 1. Evolving intraparenchymal hematoma along the medial margin of thetreated right frontal arteriovenous malformation with decreasedsurrounding edema/mass effect and near resolution of midline shift. This report was approved by Ethan Pearson M.D. on 06/23/2016 8:02 AM. I, Dr. LUKE SHARP M.D. have personally reviewed and interpreted thisexamination/study. This report was electronically signed by LUKE SHARP M.D. on 06/23/20168:30 AM . Charly Echevarria MD MR ORDERABLES * CREATININE BLOOD - POCT (IP) [facility] (06/22/2016) Creatinine POCT 1.03 0.3 - 1.3 mg/dL [facility] eGFR POCT 60 60 ml/min [facility] 06/22/2016 Mateo Overton MD LAB - POINT OF CARE ORDERABLES [facility] * PHOSPHORUS BLOOD (05/01/2016 4:40 AM MANAGER FINANCIAL PLANNING) Only the most recent of8 resultswithin the time period is included. Phosphorus 4.2 2.3 - 4.7 mg/dL [facility] Blood specimen (specimen) BLOOD SPECIMEN / Unknown 05/01/2016 4:40 AM MANAGER [employer]CIAL [employer]ANNING 05/01/2016 4:55 AM MANAGER FINANCIAL PLANNING Abdi Tracey MD LAB - CHEMISTRY [facility] [address] [phone] * (ABNORMAL) DIFFERENTIAL MANUAL (05/01/2016 4:40 AM MANAGER FINANCIAL PLANNING) Only the most recent of2 resultswithin the time period is included. WBC (corrected for NRBC) 10.5 10? 3 /uL [facility] Total Cell Count 100 [facility] Neutrophils Absolute Manual 4.41 1.60 - 7.00 10? 3 /uL [facility] Comment:(BANDS+SEGS) x WBC = NEUT # (ANC) Lymphocyte Absolute Manual 4.52(H) 0.80 - 2.90 10? 3 /uL [facility] Monocytes Absolute Manual 0.95(H) 0.14 - 0.66 10? 3 /uL [facility] Eosinophils Absolute Manual 0.42(H) 0.00 - 0.22 10? 3 /uL [facility] Basophil Absolute Manual 0.11(H) 0.00 - 0.06 10? 3 /uL [facility] Band % Manual 3 0 - 10 % [facility] Neutrophil % Manual 39 30 - 60 % [facility] Lymphocyte % Manual 43 20 - 45 % [facility] Monocytes % Manual 9 2 - 10 % [facility] Eosinophils % Manual 4 1 - 6 % [facility] Basophils % Manual 1 0 - 3 % [facility] Atypical Lymphocyte % Manual 1(H) 0 % [facility] Platelet Estimate Adequate Adequate [facility] RBC Morphology Normal [facility] Blood specimen (specimen) BLOOD SPECIMEN / Unknown 05/01/2016 4:40 AM MANAGER [employer]ANCIAL PLANNING 05/01/2016 4:55 AM MANAGER FINANCIAL PLANNING Abdi Tracey MD LAB - HEMATOLOGY ORD ERABLES [facility] [address] [place] [address], [facility] [phone] * IR VASCULAR CLOSURE DEVICE (04/27/2016 11:37 AM MANAGER FINANCIAL PLANNING) Anatomical Region Laterality Modality Other Impressions 05/01/2016 12:26 PM MANAGER FIN[employer]CIAL PLANNING Impression: 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 This report was electronically signed by JESSENIA BROWN M.D. ??on 05/01/2016 12:26 PM . Narrative 05/01/2016 12:26 PM MANAGER [employer]CIAL PLANNING Procedure: AVM Embolizatin 04/27/16 Comparison study: 04/20/16 History: The patient a 30 years -year-old Male. Who presents with R frontal AVM ??He is here for embolization using [place] 18 liquid embolic of residual AVM nidus. Client Onboarding Analyst: Varghese Brown Vessels: Right internal carotid artery angiogram: Cerebral Microcatheterization of intracranial right internal carotid and middle cerebral artery Microcatheter angiography right middle cerebral artery Embolization with [place] 18 liquid embolic x 1 MCA pedicle Right femoral artery angiogram Anesthesia: General anesthesia Procedural detail: The risks, benefits, and alternatives to procedure were discussed in detail with the patient and his family. These included but were not limited to the risk of , intracranial hemorrhage, blood loss, vessel injury, stroke, renal injury, and contrast allergy. The patient was brought to the biplane angiography suite where he underwent prep and drape procedures. A 6 [place] 30 cm Brite tip sheath was placed in the right femoral artery and a 6 [place] [employer] Envoy Guide Catheter was navigated into the aortic arch. The catheter was used to select the ??brachiocephalic artery followed by the right common carotid artery and finally the right internal carotid artery and a cerebral angiogram was obtained. An Jackson detachable tip microcatheter and Synchro 10 microwire were navigated intracranially and used to select a MCA nidal pedicle. A microcatheter angiogram was then performed through the Jackson. [place] 18 liquid embolic was used to completely occlude the nidus. Angiograms through the existing catheter were performed. The right femoral artery angiogram was obtained through the sheath. All catheters and sheaths were removed from the arterial system. Hemostasis was achieved using a 6 [place] Angio-Seal closure device. Hemostasis was immediate at the end of the closure procedure. The right dorsalis pedis pulse was palpable at the end of the closure procedure. The patient tolerated the procedure without immediate complications. He was returned to the recovery area and hemodynamically stable condition neurologically unchanged. The estimated blood loss was less than 10 mL. Findings: There was good arterial, capillary, and venous opacification of all angiographic runs. The right internal carotid artery angiogram reveals a normal course and caliber the intracranial internal carotid artery. There is a right frontal arteriovenous malformation sp partial embolization and residual nidus supplied by a frontal branch of the middle cerebral artery. Angiography through the existing catheter shows complete occlusion of the nidus. No evidence of branch artery occlusion. The right femoral artery angiogram reveals a puncture site above the femoral bifurcation. Procedure Note Jessenia Brown MD - 09/04/2017 Procedure: AVM Embolizatin 04/27/16 Comparison study: 04/20/16 History: The patient a 30 years -year-old Male. Who presents with Rfrontal AVM He is here for embolization using [place] 18 liquid embolic ofresidual AVM nidus. Client Onboarding Analyst: Varghese Brown Vessels: Right internal carotid artery angiogram: Cerebral Microcatheterization of intracranial right internal carotid and middlecerebral artery Microcatheter angiography right middle cerebral artery Embolization with [place] 18 liquid embolic x 1 MCA pedicle Right femoral artery angiogram Anesthesia: General anesthesia Procedural detail: The risks, benefits, and alternatives to procedure werediscussed in detail with the patient and his family. These included butwere not limited to the risk of , intracranial hemorrhage, bloodloss, vessel injury, stroke, renal injury, and contrast allergy. The patient was brought to the biplaneangiography suite where he underwent prep and drape procedures. A 6 [id number] cm Brite tip sheath was placed in the right femoral artery and a 6French [employer] Envoy Guide Catheter was navigated into the aortic arch. The catheter was used to select thebrachiocephalic artery followed by the right common carotid artery andfinally the right internal carotid artery and a cerebral angiogram wasobtained. An Jackson detachable tip microcatheter and Synchro 10 microwire were navigated intracranially andused to select a MCA nidal pedicle. A microcatheter angiogram was thenperformed through the Jackson. Bishop 18 liquid embolic was used tocompletely occlude the nidus. Angiograms through the existing catheter were performed. The right femoral arteryangiogram was obtained through the sheath. All catheters and sheaths were removed from the arterial system.Hemostasis was achieved using a 6 [place] Angio-Seal closure device.Hemostasis was immediate at the end of the closure procedure. The rightdorsalis pedis pulse was palpable at the end of the closure procedure. The patient tolerated the procedure without immediate complications. Hewas returned to the recovery area and hemodynamically stable conditionneurologically unchanged. The estimated blood loss was less than 10 mL. Findings: There was good arterial, capillary, and venous opacification of allangiographic runs. The right internal carotid artery angiogram reveals a normal course andcaliber the intracranial internal carotid artery. There is a right frontalarteriovenous malformation sp partial embolization and residual nidussupplied by a frontal branch of the middle cerebral artery. Angiography through the existing catheter shows complete occlusion of thenidus. No evidence of branch artery occlusion. The right femoral artery angiogram reveals a puncture site above thefemoral bifurcation. 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 This report was electronically signed by JESSENIA BROWN M.D. on05/01/2016 12:26 PM . Jessenia Brown MD IR ORDERABLES * IR 3D RENDERING (04/27/2016 11:37 AM MANAGER FINANCIAL PLANNING) Only the most recent of2 resultswithin the time period is included. 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 This report was electronically signed by JESSENIA BROWN M.D. ??on 05/01/2016 12:26 PM . Narrative 05/01/2016 12:26 PM MANAGER FINANCIAL PLANNING Procedure: AVM Embolizatin 04/27/16 Comparison study: 04/20/16 History: The patient a 30 years -year-old Male. Who presents with R frontal AVM ??He is here for embolization using [place] 18 liquid embolic of residual AVM nidus. Client Onboarding Analyst: Varghese Brown Vessels: Right internal carotid artery angiogram: Cerebral Microcatheterization of intracranial right internal carotid and middle cerebral artery Microcatheter angiography right middle cerebral artery Embolization with [place] 18 liquid embolic x 1 MCA pedicle Right femoral artery angiogram Anesthesia: General anesthesia Procedural detail: The risks, benefits, and alternatives to procedure were discussed in detail with the patient and his family. These included but were not limited to the risk of , intracranial hemorrhage, blood loss, vessel injury, stroke, renal injury, and contrast allergy. The patient was brought to the biplane angiography suite where he underwent prep and drape procedures. A 6 [place] 30 cm Brite tip sheath was placed in the right femoral artery and a 6 [place]au[place] [employer] Envoy Guide Catheter was navigated into the aortic arch. The catheter was used to select the ??brachiocephalic artery followed by the right common carotid artery and finally the right internal carotid artery and a cerebral angiogram was obtained. An Jackson detachable tip microcatheter and Synchro 10 microwire were navigated intracranially and used to select a MCA nidal pedicle. A microcatheter angiogram was then performed through the Jackson. [place] 18 liquid embolic was used to completely occlude the nidus. Angiograms through the existing catheter were performed. The right femoral artery angiogram was obtained through the sheath. All catheters and sheaths were removed from the arterial system. Hemostasis was achieved using a 6 [place] Angio-Seal closure device. Hemostasis was immediate at the end of the closure procedure. The right dorsalis pedis pulse was palpable at the end of the closure procedure. The patient tolerated the procedure without immediate complications. He was returned to the recovery area and hemodynamically stable condition neurologically unchanged. The estimated blood loss was less than 10 mL. Findings: There was good arterial, capillary, and venous opacification of all angiographic runs. The right internal carotid artery angiogram reveals a normal course and caliber the intracranial internal carotid artery. There is a right frontal arteriovenous malformation sp partial embolization and residual nidus supplied by a frontal branch of the middle cerebral artery. Angiography through the existing catheter shows complete occlusion of the nidus. No evidence of branch artery occlusion. The right femoral artery angiogram reveals a puncture site above the femoral bifurcation. Procedure Note Jessenia Brown MD - 09/04/2017 Procedure: AVM Embolizatin 04/27/16 Comparison study: 04/20/16 History: The patient a 30 years -year-old Male. Who presents with Rfrontal AVM He is here for embolization using [place] 18 liquid embolic ofresidual AVM nidus. Client Onboarding Analyst: Varghese Brown Vessels: Right internal carotid artery angiogram: Cerebral Microcatheterization of intracranial right internal carotid and middlecerebral artery Microcatheter angiography right middle cerebral artery Embolization with [place] 18 liquid embolic x 1 MCA pedicle Right femoral artery angiogram Anesthesia: General anesthesia Procedural detail: The risks, benefits, and alternatives to procedure werediscussed in detail with the patient and his family. These included butwere not limited to the risk of , intracranial hemorrhage, bloodloss, vessel injury, stroke, renal injury, and contrast allergy. The patient was brought to the biplaneangiography suite where he underwent prep and drape procedures. A 6 [id number] cm Brite tip sheath was placed in the right femoral artery and a 6French [employer] Envoy Guide Catheter was navigated into the aortic arch. The catheter was used to select thebrachiocephalic artery followed by the right common carotid artery andfinally the right internal carotid artery and a cerebral angiogram wasobtained. An Jackson detachable tip microcatheter and Synchro 10 microwire were navigated intracranially andused to select a MCA nidal pedicle. A microcatheter angiogram was thenperformed through the Jackson. [place] 18 liquid embolic was used tocompletely occlude the nidus. Angiograms through the existing catheter were performed. The right femoral arteryangiogram was obtained through the sheath. All catheters and sheaths were removed from the arterial system.Hemostasis was achieved using a 6 [place] Angio-Seal closure device.Hemostasis was immediate at the end of the closure procedure. The rightdorsalis pedis pulse was palpable at the end of the closure procedure. The patient tolerated the procedure without immediate complications. Hewas returned to the recovery area and hemodynamically stable conditionneurologically unchanged. The estimated blood loss was less than 10 mL. Findings: There was good arterial, capillary, and venous opacification of allangiographic runs. The right internal carotid artery angiogram reveals a normal course andcaliber the intracranial internal carotid artery. There is a right frontalarteriovenous malformation sp partial embolization and residual nidussupplied by a frontal branch of the middle cerebral artery. Angiography through the existing catheter shows complete occlusion of thenidus. No evidence of branch artery occlusion. The right femoral artery angiogram reveals a puncture site above thefemoral bifurcation. 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 This report was electronically signed by JESSENIA BROWN M.D. on05/01/2016 12:26 PM . Jessenia Brown MD IR ORDERABLES * IR EMBOLIZATION TRANSCATH THPY (04/27/2016 11:37 AM MANAGER FINANCIAL PLANNING) Only the most recent of4 resultswithin the time period is included. 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 This report was electronically signed by JESSENIA BROWN M.D. ??on 05/01/2016 12:26 PM . Narrative 05/01/2016 12:26 PM MANAGER FINANCIAL PLANNING Procedure: AVM Embolizatin 04/27/16 Comparison study: 04/20/16 History: The patient a 30 years -year-old Male. Who presents with R frontal AVM ??He is here for embolization using [place] 18 liquid embolic of residual AVM nidus. Client Onboarding Analyst: Varghese Brown Vessels: Right internal carotid artery angiogram: Cerebral Microcatheterization of intracranial right internal carotid and middle cerebral artery Microcatheter angiography right middle cerebral artery Embolization with [place] 18 liquid embolic x 1 MCA pedicle Right femoral artery angiogram Anesthesia: General anesthesia Procedural detail: The risks, benefits, and alternatives to procedure were discussed in detail with the patient and his family. These included but were not limited to the risk of , intracranial hemorrhage, blood loss, vessel injury, stroke, renal injury, and contrast allergy. The patient was brought to the biplane angiography suite where he underwent prep and drape procedures. A 6 [place] 30 cm Brite tip sheath was placed in the right femoral artery and a 6 [place] [employer] Guide Catheter was navigated into the aortic arch. The catheter was used to select the ??brachiocephalic artery followed by the right common carotid artery and finally the right internal carotid artery and a cerebral angiogram was obtained. An Jackson detachable tip microcatheter and Synchro 10 microwire were navigated intracranially and used to select a MCA nidal pedicle. A microcatheter angiogram was then performed through the Jackson. Bishop 18 liquid embolic was used to completely occlude the nidus. Angiograms through the existing catheter were performed. The right femoral artery angiogram was obtained through the sheath. All catheters and sheaths were removed from the arterial system. Hemostasis was achieved using a 6 Palau[place] Angio-Seal closure device. Hemostasis was immediate at the end of the closure procedure. The right dorsalis pedis pulse was palpable at the end of the closure procedure. The patient tolerated the procedure without immediate complications. He was returned to the recovery area and hemodynamically stable condition neurologically unchanged. The estimated blood loss was less than 10 mL. Findings: There was good arterial, capillary, and venous opacification of all angiographic runs. The right internal carotid artery angiogram reveals a normal course and caliber the intracranial internal carotid artery. There is a right frontal arteriovenous malformation sp partial embolization and residual nidus supplied by a frontal branch of the middle cerebral artery. Angiography through the existing catheter shows complete occlusion of the nidus. No evidence of branch artery occlusion. The right femoral artery angiogram reveals a puncture site above the femoral bifurcation. Procedure Note Jessenia Brown MD - 09/04/2017 Procedure: AVM Embolizatin 04/27/16 Comparison study: 04/20/16 History: The patient a 30 years -year-old Male. Who presents with Rfrontal AVM He is here for embolization using Bishop 18 liquid embolic ofresidual AVM nidus. Client Onboarding Analyst: Varghese Brown Vessels: Right internal carotid artery angiogram: Cerebral Microcatheterization of intracranial right internal carotid and middlecerebral artery Microcatheter angiography right middle cerebral artery Embolization with [place] 18 liquid embolic x 1 MCA pedicle Right femoral artery angiogram Anesthesia: General anesthesia Procedural detail: The risks, benefits, and alternatives to procedure werediscussed in detail with the patient and his family. These included butwere not limited to the risk of , intracranial hemorrhage, bloodloss, vessel injury, stroke, renal injury, and contrast allergy. The patient was brought to the biplaneangiography suite where he underwent prep and drape procedures. A 6 [id number] cm Brite tip sheath was placed in the right femoral artery and a 6[employer] Envoy Guide Catheter was navigated into the aortic arch. The catheter was used to select thebrachiocephalic artery followed by the right common carotid artery andfinally the right internal carotid artery and a cerebral angiogram wasobtained. An Jackson detachable tip microcatheter and Synchro 10 microwire were navigated intracranially andused to select a MCA nidal pedicle. A microcatheter angiogram was thenperformed through the Jackson. [place] 18 liquid embolic was used tocompletely occlude the nidus. Angiograms through the existing catheter were performed. The right femoral arteryangiogram was obtained through the sheath. All catheters and sheaths were removed from the arterial system.Hemostasis was achieved using a 6 Palauan Angio-Seal closure device.Hemostasis was immediate at the end of the closure procedure. The rightdorsalis pedis pulse was palpable at the end of the closure procedure. The patient tolerated the procedure without immediate complications. Hewas returned to the recovery area and hemodynamically stable conditionneurologically unchanged. The estimated blood loss was less than 10 mL. Findings: There was good arterial, capillary, and venous opacification of allangiographic runs. The right internal carotid artery angiogram reveals a normal course andcaliber the intracranial internal carotid artery. There is a right frontalarteriovenous malformation sp partial embolization and residual nidussupplied by a frontal branch of the middle cerebral artery. Angiography through the existing catheter shows complete occlusion of thenidus. No evidence of branch artery occlusion. The right femoral artery angiogram reveals a puncture site above thefemoral bifurcation. 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 This report was electronically signed by JESSENIA BROWN M.D. on05/01/2016 12:26 PM . Abdi Tracey MD IR ORDERABLES * CT ANGIO BRAIN STEREOTACTIC (04/27/2016 4:42 AM MANAGER FINANCIAL PLANNING) Anatomical Region Laterality Modality Head Other Impressions 04/27/2016 6:27 AM MANAGER FINANCIAL PLANNING IMPRESSION: 1. CT localization of the cerebral vasculature and a right frontal intraparenchymal hematoma for treatment planning. This report was electronically signed by MATEO OVERTON M.D. ??on 04/27/2016 6:27 AM . Narrative 04/27/2016 6:27 AM MANAGER FINANCIAL PLANNING EXAMINATION: Computed tomography (CT) of the head without and with contrast HISTORY: Intracranial hemorrhage, arteriovenous malformation TECHNIQUE: CT of the head was performed without contrast according to stereotactic protocol. Then CT angiography of the head was obtained after the uneventful administration of 75 mL Omnipaque 350 intravenous contrast. Three dimensional postprocessing was performed by the technologist and sent to the workstation for review. FINDINGS: Comparison is made with a study from 24 April 2016. Non-angiographic findings: A small portion of both cerebral hemispheres is obscured by streak artifact from embolization material in a right frontal arteriovenous malformation. An intraparenchymal hematoma surrounding the treated arteriovenous malformation is grossly unchanged in size with a thin rind of vasogenic edema. The ventricles are nondilated. The basilar cisterns are patent. There is local mass effect with 4 mm of leftward midline shift at the foramen of Monro. The barba-white matter differentiation in the visible brain otherwise appears normal. A mildly widened cisterna magna is again noted. Other than mild paranasal sinus disease, the visualized portions of the orbits, paranasal sinuses, and mastoids appear normal. No acute fracture is identified. Angiographic findings: The distal internal carotid arteries appear normal. The anterior and middle cerebral arteries appear normal. The distal vertebral arteries appear normal. The basilar artery and posterior cerebral arteries appear normal. The orbital frontal branch of the right anterior cerebral artery is enlarged and appears to be heading towards the treated right frontal arteriovenous malformation. There is mildly dilated peel vasculature in the sulci immediately superior to the right frontal and parenchymal hematoma. These findings are of uncertain significance. Procedure Note Mateo Overton MD - 09/04/2017 EXAMINATION: Computed tomography (CT) of the head without and withcontrast HISTORY: Intracranial hemorrhage, arteriovenous malformation TECHNIQUE: CT of the head was performed without contrast according tostereotactic protocol. Then CT angiography of the head was obtained afterthe uneventful administration of 75 mL Omnipaque 350 intravenous contrast.Three dimensional postprocessing was performed by the technologist and sent to the workstation forreview. FINDINGS: Comparison is made with a study from 24 April 2016. Non-angiographic findings: A small portion of both cerebral hemispheres is obscured by streakartifact from embolization material in a right frontal arteriovenousmalformation. An intraparenchymal hematoma surrounding the treatedarteriovenous malformation is grossly unchanged in size with a thin rind of vasogenic edema. The ventricles are nondilated.The basilar cisterns are patent. There is local mass effect with 4 mm ofleftward midline shift at the foramen of Monro. The barba-white matterdifferentiation in the visible brain otherwise appears normal. A mildly widened cisterna magna is again noted.Other than mild paranasal sinus disease, the visualized portions of theorbits, paranasal sinuses, and mastoids appear normal. No acute fractureis identified. Angiographic findings: The distal internal carotid arteries appear normal. The anterior andmiddle cerebral arteries appear normal. The distal vertebral arteriesappear normal. The basilar artery and posterior cerebral arteries appearnormal. The orbital frontal branch of the right anterior cerebral artery is enlarged and appears to be headingtowards the treated right frontal arteriovenous malformation. There ismildly dilated peel vasculature in the sulci immediately superior to theright frontal and parenchymal hematoma. These findings are of uncertain significance. IMPRESSION IMPRESSION: 1. CT localization of the cerebral vasculature and a right frontalintraparenchymal hematoma for treatment planning. This report was electronically signed by MATEO OVERTON M.D. on04/27/2016 6:27 AM . Abdi Tracey MD CT ORDERABLES * TYPE + SCREEN PANEL (04/27/2016 12:51 AM MANAGER FINANCIAL PLANNING) Only the most recent of3 resultswithin the time period is included. Typem B NEG [facility] Antibody Screen NEG [facility] Blood specimen (specimen) 04/27/2016 12:51 AM MANAGER FINANCIAL PLANNING 04/27/2016 1:19 AM MANAGER FINANCIAL PLANNING Abdi Tracey MD LAB - BLOOD BANK ORD ERABLES Performing Organization Address [facility] Co de Phone Number [facility] [address] [place] [address] * PTT SLU (04/23/2016 2:10 PM MANAGER FINANCIAL PLANNING) APTT 27.0 23.0 - 38.4 Seconds [facility] Comment:Suggested therapeuti c range for full dose I.V. heparin therapy for venous thromboembolism is 66.0-91.0 seconds. Blood specimen (specimen) BLOOD SPECIMEN / Unknown 04/23/2016 2:10 PM MANAGER FINANCIAL PLANNING 04/23/2016 2:20 PM MANAGER FINANCIAL PLANNING Narrative [facility] - 04/23/2016 2:37 PM MANAGER FINANCIAL PLANNING Is patient on Heparin, Argatroban or Dabigatran?->N Yaw Anderson MD LAB - COAGULATION OR DERABLES Performing Organization Address City/[facility]/ZIP Co de Phone Number [address] [phone] * PATHOLOGY REVIEW TEG (04/23/2016 2:10 PM MANAGER FINANCIAL PLANNING) Pathology Review TEG [facility] Comment: PATHOLOGIST INTERPRETATION: DATE: April 24, 2016 Summary Statement: PLATELET FUNCTION WITH ADP IN BORDERLINE RANGE* POSSIBLY ASSOCIATED WITH TRAUMA CANNOT EXCLUDE MILD CLOPIDOGREL-LIKE DRUG EFFECT CLINICAL CORRELATION ADVISED NO HYPERFIBRINOLYSIS *Please note that there is significant overlap of receptor inhibition results by ADP in healthy individuals and patients (Reference: Louann et al: Thrombosis Journal 2007; 5:3). Clinical correlation is advised. PLATELET AGONISTINTERPRETATION Kaolin (thrombin): Normal ADP: Borderline Arachidonic acid: Normal Hyperfibinolysis: Absent Platelet Count on Day of Study: ?? > 100,000/ul The thromboelastograms for platelet activation by the agonists are reviewed, and all results are evaluated in conjunction with the platelet count by CBC. Berta Hitchcock MD Transfusion Service Blood specimen (specimen) BLOOD SPECIMEN / Unknown 04/23/2016 2:10 PM MANAGER FINANCIAL PLANNING 04/23/2016 2:20 PM MANAGER FINANCIAL PLANNING Yaw Anderson MD LAB - PATHOLOGY/CYTO LOGY ORDERABLES [address] [phone] * TEG PLATELET MAPPING (04/23/2016 2:10 PM MANAGER FINANCIAL PLANNING) Pathologist [facility] G-Clot Strength 9.1 4.5 - 11.0 d/sc [facility] Pathology Review TEG Other [facility] Interpretation TEG See Comment [facility] React-Time 5.1 5.0 - 10.0 MIN [facility] K-Time 1.3 1.0 - 3.0 MIN [facility] Angle A-BB 70.8 53.0 - 72.0 Degrees [facility] MA (CK) BB 64.4 50.0 - 70.0 mm [facility] LY30 2.3 0.0 - 8.0 % [facility] CI-Coagulation Index 1.6 -3.0 - 3.0 [facility] MA-ADP 43.5 Reference Range: None mm [facility] MA AA-BB 55.1 Reference Range: None mm [facility] % ADP Inhibition 38.4 Reference Range:None % [facility] % AA Inhibition 17.1 Reference Range: None % [facility] Blood specimen (specimen) BLOOD SPECIMEN / Unknown 04/23/2016 2:10 PM MANAGER FINANCIAL PLANNING 04/23/2016 2:20 PM MANAGER FINANCIAL PLANNING Narrative [facility] - 04/23/2016 3:54 PM MANAGER FINANCIAL PLANNING SEE BELOW ?TEG Kaolin Sample Type Interpretation TEG Value ?Hemostasis State R < than 4 min: ?Enzymatic Hypercoagulability R 11-14 min: ? Low Clotting Factors R > than 14 min: ?? Very low clotting factors MA 46-54 mm: ? Low Platelet function MA 41-45 mm: ? Very low platelet function MA 40 mm or less: ??Extremely low platelet function MA > 73 mm: ?Platelet hypercoagulability R < 4 min and ?Enzymatic and platelet hypercoagulability MA > 73 mm: Angle < 45 deg: ?Low fibrinogen level LY30 at 7.5% or >, Primary Fibrinolysis CI < than 1.0: ?? LY30 at 7.5% or >, Secondary fibrinolysis CI > than 3.0: LY30 < 7.5%, ? Prothrombotic state CI > 3.0: Yaw Anderson MD LAB - BLOOD BANK ORD ERABLES Performing Organization Address [facility] Co de Phone Number [facility] [address] * EKG 12-LEAD (04/21/2016 12:00 AM MANAGER FINANCIAL PLANNING) EKG [facility] Comment: Exam Date/Time: ?? Apr 21 2016 23:33:16 Test Reason : qtc Blood Pressure : / mmHG Vent. Rate : 088 BPM ? Atrial Rate : 088 BPM ?? P-R Int : 164 ms ?QRS Dur : 084 ms ?QT Int : 342 ms ? P-R-T Axes : 065 039 035 degrees ?? QTc Int : 413 ms Normal sinus rhythm Normal ECG No previous ECGs available Confirmed by Barbi BLAIR, KASSANDRA ([id number]), assistant film editor Gene Sun ([id number]) on 04/25/2016 1:01:24 PM Referred By: REFERRING NO ? Confirmed By:KASSANDRA BLAIR M.D. 04/21/2016 Jessenia Brown MD ECG ORDERABLES Performing Organization Address [facility] Co de Phone Number [facility] * (ABNORMAL) BLOOD GASES ART COMPLETE [facility] OR (04/20/2016 10:10 AM MANAGER FINANCIAL PLANNING) pH Arterial 7.35 7.35 - 7.45 [facility] pCO2 Arterial 42 35 - 45 mmHg [facility] pO2 Arterial 98 82 - 106 mmHg [facility] HCO3 Arterial 22.5 22.0 - 26.0 mmol/L [facility] TCO2 Arterial 23.8(L) 25.0 - 29.0 mmol/L [facility] Base Excess Arterial -3.0(L) -2.0 - 2.0 mmol/L [facility] Hemoglobin Arterial 11.9(L) 13.5 - 17.5 g/dL [facility] Oxyhemoglobin Arterial 93.1(L) 95.0 - 100.0 % [facility] Carboxyhemoglobin 3.5(H) 0.0 - 3.0 % [facility] Methemoglobin 0.2 0.0 - 2.0 % [facility] FI O2 Arterial 70.0 % [facility] Ionized Calcium Whole Blood 1.13 mmol/L [facility] Adjusted Ionized Calcium 1.10(L) 1.19 - 1.34 mmol/L [facility] Sodium Whole Blood 138 135 - 145 mmol/L [facility] Potassium Whole Blood 4.3 3.5 - 5.5 mmol/L [facility] Chloride Whole Blood 107 101 - 111 mmol/L [facility] Glucose Whole Blood 88 70 - 110 mg/dL [facility] Lactic Acid Whole Blood 1.8 0.5 - 3.4 mmol/L [facility] Blood specimen (specimen) 04/20/2016 10:10 AM MANAGER FINANCIAL PLANNING 04/20/2016 10:17 AM MANAGER FINANCIAL PLANNING Jason Melara MD LAB - BLOOD GASES O RDERABLES Performing Organization Address City/State/[facility] Co de Phone Number [place] [id number] [address] [phone] * (ABNORMAL) BLOOD GASES ART (04/20/2016 9:25 AM MANAGER FINANCIAL PLANNING) pH Arterial 7.35 7.35 - 7.45 [facility] pCO2 Arterial 42 35 - 45 mmHg [facility] pO2 Arterial 98 82 - 106 mmHg [facility] HCO3 Arterial 22.5 22.0 - 26.0 mmol/L [facility] TCO2 Arterial 23.8(L) 25.0 - 29.0 mmol/L [facility] Base Excess Arterial -3.0(L) -2.0 - 2.0 mmol/L [facility] Hemoglobin Arterial 11.9(L) 13.5 - 17.5 g/dL [facility] Oxyhemoglobin Arterial 93.1(L) 95.0 - 100.0 % [facility] Carboxyhemoglobin 3.5(H) 0.0 - 3.0 % [facility] Methemoglobin 0.2 0.0 - 2.0 % [facility] FI O2 Arterial 70.0 % [facility] Blood specimen (specimen) BLOOD SPECIMEN / Unknown 04/20/2016 9:25 AM MANAGER FINANCIAL PLANNING 04/20/2016 9:35 AM MANAGER FINANCIAL PLANNING Jason Melara MD LAB - BLOOD GASES O SANDY Performing Organization Address City/[facility] Co de Phone Number [facility] [address] [phone] * LAB HISTORICAL RESULTS-ONBASE (03/26/2016) Only the most recent of3 resultswithin the time period is included. 03/26/2016 Historical Provider LAB - CHEMISTRY O SANDY [facility] [address] Care Teams Capsule Filler Relationship Specialty Start Date End Date None, Physician PCP - General 06/27/24
--- OUTSIDE RECORDS SUMMARY | 2024-07-04 16:50 | XMS_ITS | Referral Summary ---
Author Organization [facility] Address [address] [place] [address] Care Team Providers Care Metal[employer] Operation Name Role Phone None, Physician Primary Care Provider Unavailabl e Source Comments [facility],non-owned Affiliates and Associated Physician Practices is amultiple site organization consisting of ambulatory clinics and hospital sitesin [place], [place], [place] and [place]. This disclosure is being madepursuant to the Care Everywhere program and may not contain all information available regarding this patient. Last updated 18.[facility] Encounters Date Type Department Care Team Description 06/27/2024 Travel 06/27/2024 3:23 AM TOUR GUIDE - 06/27/2024 12:20 PM [facility] Emergency [facility] EMERGENCY DEPARTMENT [address] [place] [phone] Shama Hutchins MD Traumatic injury of head, initial encounter (Primary Dx); Laceration of scalp, initial encounter; Seizure disorder (HCC); S/P coil embolization of cerebral aneurysm Discharge Disposition: Home or Self Care 06/21/2024 10:46 PM TOUR GUIDE - 06/21/2024 11:30 PM [facility] Emergency ER at [address] [address] Discharge Disposition: Left Against Medical Advice/Discontinued Care 06/20/2024 Travel 06/20/2024 2:16 AM TOUR GUIDE - 06/20/2024 5:44 AM [facility] Emergency [facility] EMERGENCY DE[facility] [address] [place] [phone] Main Santos MD Left hand pain (Primary Dx) Discharge Disposition: Home or Self Care 06/18/2024 12:50 AM TOUR GUIDE - 06/18/2024 1:23 AM TOUR GUIDE Emergency ER at [address] [address] Sarabjit León MD Discharge Disposition: ED Dismiss - Never Arrived 06/17/2024 - 06/18/2024 12:41 AM TOUR GUIDE Emergency ER at [address] [address] 06/17/2024 9:35 AM TOUR GUIDE - 06/17/2024 12:46 PM TOUR GUIDE Emergency ER at [address] [address] James Ogden MD Acute alcoholic intoxication without complication (HCC) (Primary Dx) Discharge Disposition: Left Against Medical Advice/Discontinued Care 06/16/2024 Travel 06/16/2024 12:34 PM TOUR GUIDE - 06/16/2024 3:34 PM TOUR GUIDE Emergency ER at [address] [address] Nelson Bruce DO Housing instability; Schizoaffective disorder, unspecified type (HCC) Discharge Disposition: Home or Self Care 06/15/2024 8:17 AM TOUR GUIDE - 06/15/2024 9:49 AM TOUR GUIDE Emergency ER at [address] [address] Shravan Campoverde MD Housing instability Discharge Disposition: Home or Self Care 06/15/2024 12:11 AM TOUR GUIDE - 06/15/2024 2:10 AM TOUR GUIDE Emergency ER at [address] [address] Amber Macdonald MD Hodges, Harlan D, MD Left hand pain Discharge Disposition: Home or Self Care 06/14/2024 Travel 06/14/2024 4:06 PM TOUR GUIDE - 06/14/2024 5:12 PM TOUR GUIDE Emergency ER at [address] [address] Nelson Bruce DO Malingering Discharge Disposition: Home or Self Care 06/13/2024 Travel 06/13/2024 12:12 PM TOUR GUIDE - 06/13/2024 1:29 PM [facility] Emergency [facility] EMERGENCY DEPARTMENT [address] [place] [phone] Toribio Ayers MD Homelessness (Primary Dx); Open wound of left hand without foreign body, unspecified wound type, initial encounter Discharge Disposition: Home or Self Care 06/13/2024 3:30 AM TOUR GUIDE - 06/13/2024 4:33 AM [facility] Emergency [facility] EMERGENC[facility] DEPART[facility] [address] [place] [phone] Shahid Patterson MD Homelessness Discharge Disposition: Home or Self Care 06/12/2024 10:33 AM TOUR GUIDE - 06/12/2024 1:07 PM [facility] Emergency [facility] EMERGENCY DEPARTMENT [address] [place] [phone] Toribio Ayers MD Cold exposure, initial encounter; Hungry, initial encounter; Homeless Discharge Disposition: Home or Self Care 06/11/2024 Travel 06/11/2024 10:34 AM TOUR GUIDE - 06/11/2024 12:27 PM [facility] Emergency [facility] EMERGENC[facility] DEPARTMENT [address] [place] [phone] Shivani Mccall MD Tired (Primary Dx); Homeless; Normocytic anemia Discharge Disposition: Home or Self Care 05/22/2024 8:04 PM TOUR GUIDE - 05/23/2024 9:29 AM TOUR GUIDE Emergency ER at [address] [address] Talia Becker MD Majino, Angela R, MD Bipolar affective disorder, remission status unspecified (HCC) (Primary Dx); Agitation requiring sedation protocol; Polysubstance abuse (HCC); Noncompliance with treatment Discharge Disposition: Home or Self Care 05/22/2024 Travel 05/22/2024 12:41 AM TOUR GUIDE - 05/22/2024 3:07 AM [facility] Emergency ER at [address] [address] Shravan Campoverde MD Encounter for medication refill; 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, subsequent encounter Discharge Disposition: Home or Self Care 05/04/2024 Telephone [facility] [address] [place] [phone] German Higgins MD Question from Last 3 Months Allergies Active Allergy [...] disorder 11/05/2015 06/30/2023 Seizure 11/05/2015 06/30/2023 Immunizations Name Administration Dates Next Due FLU [...] Comments Blood Pressure 120/84 06/27/2024 12:19 PM TOUR GUIDE Pulse 89 06/27/2024 12:19 PM TOUR GUIDE Temperature 36.8 ??C (98.2 ??F) 06/27/2024 3:26 AM CS T Respiratory Rate 16 06/27/2024 12:19 PM TOUR GUIDE Oxygen Saturation 97% 06/27/2024 12:19 PM TOUR GUIDE Inhaled Oxygen Concentration - - Weight 81.6 kg (180 lb) 06/20/2024 1:22 AM TOUR GUIDE Height 177.8 cm (5' 10 ) 06/20/2024 1:22 AM TOUR GUIDE Body Mass Index 25.83 06/20/2024 1:22 AM TOUR GUIDE Plan of Treatment Upcoming Encounters Date Type Department Care Team (Late st Contact Info) Description 11/15/2024 3:00 PM CDT Office Visit [facility] - Neurology [address] [place] [address], [place] [phone] Anupam Genao MD [address] [place] [address] [place] [phone] (work) Procedures Procedure Name Priority Date/Time Associated Diagnosis Comments LEVETIRACETAM LEVEL STAT 06/27/2024 4 :55 AM TOUR GUIDE CARBAMAZEPINE LEVEL TOTAL STAT 06/27/2024 4:55 AM TOUR GUIDE VALPROIC ACID LEVEL STAT 06/27/2024 4 :55 AM TOUR GUIDE TEG 6S PLATELET MAPPING STAT 06/27/19 4:55 AM TOUR GUIDE TEG 6 GLOBAL HEMOSTASIS W/ LYSIS STAT 06/27/2024 4:55 AM TOUR GUIDE ALCOHOL ETHYL BLOOD STAT 06/27/2024 4 :55 AM TOUR GUIDE PT-INR [facility] STAT 06/27/2024 4:55 AM TOUR GUIDE MAGNESIUM BLOOD STAT 06/27/2024 4:55 AM TOUR GUIDE COMPREHENSIVE METABOLIC PANEL STAT 06/27/2024 4:55 AM TOUR GUIDE CBC W AUTO DIFFERENTIAL STAT 06/27/19 4:[address] HEAD WO CONTRAST STAT 06/27/2024 3 :53 AM TOUR GUIDE Traumatic injury of head, initial encounter Laceration of scalp, initial encounter LACTIC ACID BLOOD REFLEX TO REPEAT STAT 06/17/2024 9:45 AM TOUR GUIDE HYDROXYBUTYRATE BETA STAT 06/17/2024 9:45 AM TOUR GUIDE ALCOHOL ETHYL BLOOD STAT 06/17/2024 9 :45 AM TOUR GUIDE COMPREHENSIVE METABOLIC PANEL STAT 06/17/2024 9:45 AM TOUR GUIDE CBC W AUTO DIFFERENTIAL STAT 06/17/19 9:45 AM TOUR GUIDE ED INCISION AND DRAINAGE Routine 06/15/2024 1:50 AM TOUR GUIDE XR HAND LEFT 3VW OR MORE STAT 06/13/2024 10:44 AM TOUR GUIDE Open wound of left hand without foreign body, unspecified wound type, initial encounter CULTURE WOUND+GRAM STAIN STAT 06/13/2024 10:29 AM TOUR GUIDE URINE DRUG SCREEN IMMUNOASSAY STAT 06/11/2024 11:34 AM TOUR GUIDE VALPROIC ACID LEVEL STAT 06/11/2024 1 0:52 AM TOUR GUIDE ALCOHOL ETHYL BLOOD STAT 06/11/2024 1 0:52 AM TOUR GUIDE BASIC METABOLIC PANEL (CALCIUM TOTAL) STAT 06/11/2024 10:52 AM TOUR GUIDE CBC W AUTO DIFFERENTIAL STAT 06/11/19 10:52 AM TOUR GUIDE from Last 3 Months Results * TEG 6 GLOBAL HEMOSTASIS W/ LYSIS (06/27/2024 4:55 AM TOUR GUIDE) Citrated Kaolin R (Reaction Time) 4.7 4.6 - 9.1 min 06/27/2024 6:09 AM TOUR GUIDE [facility] Citrated Kaolin LY30 (Lysis) 0.5 0.0 - 2.6 % 06/27/2024 6:09 AM TOUR GUIDE [facility] Citrated Functional Fibrinogen MA (Max Amplitude) 18.0 15.0 - 32.0 mm 06/27/2024 6:09 AM TOUR GUIDE [facility] Citrated RapidTEG MA (Max Amplitude) 60.6 52.0 - 70.0 mm 06/27/2024 6:09 AM [facility] Blood BLOOD SPECIMEN / Unknown Venipuncture / Unknown 06/27/2024 4:55 AM TOUR GUIDE 06/27/2024 5:10 AM TOUR GUIDE Shama Hutchins MD LAB - HEMATOLOGY ORD ERABLES [facility] [address] [phone], [facility] [phone] * (ABNORMAL) TEG 6S PLATELET MAPPING (06/27/2024 4:55 AM TOUR GUIDE) Pathologist [facility] TEGPLM (Max Amplitude) Koalin 60.0 53.0 - 68.0 mm 06/27/2024 6:09 AM [facility] TEGPLM (Max Amplitude) ACTF 7.3 2.0 - 19.0 mm 06/27/2024 6:09 AM [facility] TEGPLM (Max Amplitude) ADP 34.1(L) 45.0 - 69.0 mm 06/27/2024 6:09 AM [facility] Comment:ADP MA below normal range. Inhibition present. TEGPLM (Max Amplitude) AA 44.3(L) 51.0 - 71.0 mm 06/27/2024 6:09 AM [facility] Comment:AA MA below normal r cleo. Inhibition present. TEGPLM %Inhibition ADP 49.1(H) 0.0 - 17.0 % 06/27/2024 6:09 AM [facility] TEGPLM %Inhibition AA 29.8(H) 0.0 - 11.0 % 06/27/2024 6:09 AM [facility] TEGPLM %Aggregation ADP 50.9(L) 83.0 - 100.0 % 06/27/2024 6:09 AM [facility] TEGPLM % Aggregation AA 70.2(L) 89.0 - 100.0 % 06/27/2024 6:09 AM [facility] Blood BLOOD SPECIMEN / Unknown Venipuncture / Unknown 06/27/2024 4:55 AM TOUR GUIDE 06/27/2024 5:10 AM [facility] Shama Hutchins MD LAB - HEMATOLOGY ORD ERABLES [facility] [address] [place] [address], [facility] [phone] * PT-INR [facility] (06/27/2024 4:55 AM [facility]) Pathologist [facility] PT 12.2 12.1 - 14.8 Seconds 06/27/2024 6:22 AM [facility] INR 0.9 See Comment 06/27/2024 6:22 AM [facility] Comment:The suggested therap eutic range for standard coumadin (warfarin) therapy is an INR of 2.0-3.0. For high-risk patients (Mechanical Mitral Valve Prosthesis, etc.), the suggested prophylactic therapeutic range is an INR of 2.5-3.5. Blood BLOOD SPECIMEN / Unknown Venipuncture / Unknown 06/27/2024 4:55 AM TOUR GUIDE 06/27/2024 5:56 AM TOUR GUIDE Shama Hutchins MD LAB - COAGULATION OR DERABLES Performing Organization Address City/State/[facility] Co de Phone Number [address] [phone], [facility] [phone] * LEVETIRACETAM LEVEL (06/27/2024 4:55 AM TOUR GUIDE) Levetiracetam 30 10 - 40 ug/mL 06/29/2024 6:20 AM TOUR GUIDE [employer] ([facility]) Comment: INTERPRETIVE INFORMATION: Keppra (Levetiracetam) Therapeutic Range: ??10-40 ug/mL ?Toxic: ??Not well Established Pharmacokinetics of levetiracetam are affected by renal function. Adverse effects may include somnolence, weakness, headache and vomiting. This levetiracetam (Keppra) immunoassay uses the [employer] reagents, which has known cross-reactivity with the drug brivaracetam (Briviact) and may report inaccurate results. Patients transitioning from levetiracetam to brivaracetam or those who are using both medications should not monitor drug concentrations with the [employer] assay. These patients should be monitored using a validated chromatographic methodology that distinguishes between drugs to determine drug concentrations. Performed By: [employer] [address] [place] [address] Hydrogeologist: Miguel Pizano MD, PhD CLIA Number: [id number] Blood BLOOD SPECIMEN / Unknown Venipuncture / Unknown 06/27/2024 4:55 AM TOUR GUIDE 06/27/2024 5:05 AM TOUR GUIDE Shama Hutchins MD LAB - THERAPEUTIC DR MASTERSON MONITORING ORDERABLES [facility] ([facility]) [address] [place] [address], [facility] * (ABNORMAL) CBC W AUTO DIFFERENTIAL (06/27/2024 4:55 AM [facility]) Only the most recent of3 resultswithin the time period is included. WBC 13.6(H) 4.0 - 10.7 x10E9/L 06/27/2024 5:20 AM [facility] RBC Count 4.25(L) 4.30 - 5.80 x10E12/L 06/27/2024 5:20 AM [facility] Hemoglobin 12.6(L) 13.3 - 17.5 g/dL 06/27/2024 5:20 AM [facility] Hematocrit 37.4(L) 38.7 - 51.1 % 06/27/2024 5:20 AM [facility] MCV 88.0 80.0 - 98.0 fL 06/27/2024 5:20 AM [facility] MCH 29.6 26.7 - 33.6 pg 06/27/2024 5:20 AM [facility] MCHC 33.7 31.7 - 36.3 g/dL 06/27/2024 5:20 AM [facility] RDW-CV 11.9 11.3 - 14.8 % 06/27/2024 5:20 AM [facility] Platelet Count 293 150 - 420 x10E9/L 06/27/2024 5:20 AM [facility] MPV 9.5 7.8 - 11.4 fL 06/27/2024 5:20 AM [facility] Neutrophil % 72.9 41.0 - 74.0 % 06/27/2024 5:20 AM [facility] Lymphocyte % 18.0 17.0 - 47.0 % 06/27/2024 5:20 AM [facility] Monocyte % 6.8 3.0 - 11.0 % 06/27/2024 5:20 AM [facility] Eosinophil % 1.6 0.0 - 7.0 % 06/27/2024 5:20 AM [facility] Basophil % 0.3 0.0 - 1.6 % 06/27/2024 5:20 AM [facility] Immature Granulocytes % 0.4 0.0 - 1.0 % 06/27/2024 5:20 AM [facility] Neutrophil Absolute 9.90(H) 1.60 - 7.50 x10E9/L 06/27/2024 5:20 AM [facility] Lymphocyte Absolute 2.45 1.00 - 4.40 x10E9/L 06/27/2024 5:20 AM [facility] Monocyte Absolute 0.93 0.15 - 1.00 x10E9/L 06/27/2024 5:20 AM [facility] Eosinophil Absolute 0.22 0.00 - 0.60 x10E9/L 06/27/2024 5:20 AM [facility] Basophil Absolute 0.04 0.00 - 0.13 x10E9/L 06/27/2024 5:20 AM [facility] Blood BLOOD SPECIMEN / Unknown Venipuncture / Unknown 06/27/2024 4:55 AM [facility] 06/27/2024 5:11 AM [facility] Shama Hutchins MD LAB - HEMATOLOGY ORD ERABLES [facility] [address] [place] [address], [facility] [phone] * (ABNORMAL) COMPREHENSIVE METABOLIC PANEL (06/27/2024 4:55 AM [facility]) Only the most recent of2 resultswithin the time period is included. BUN 7 7 - 26 mg/dL 06/27/2024 5:40 AM [facility] Creatinine 0.62(L) 0.71 - 1.16 mg/dL 06/27/2024 5:40 AM [facility] Sodium 142 136 - 145 mmol/L 06/27/2024 5:40 AM [facility] Potassium 4.5 3.5 - 4.5 mmol/L 06/27/2024 5:40 AM [facility] Chloride 110(H) 98 - 107 mmol/L 06/27/2024 5:40 AM [facility] CO2 27 22 - 29 mmol/L 06/27/2024 5:40 AM [facility] Glucose 100(H) 70 - 99 mg/dL 06/27/2024 5:40 AM [facility] Calcium 9.1 8.4 - 10.2 mg/dL 06/27/2024 5:40 AM [facility] Protein Total 6.6 6.0 - 8.3 g/dL 06/27/2024 5:40 AM [facility] Albumin 4.0 3.4 - 5.0 g/dL 06/27/2024 5:40 AM [facility] Bilirubin Total 0.3 0.2 - 1.2 mg/dL 06/27/2024 5:40 AM [facility] Alkaline Phosphatase 66 40 - 150 U/L 06/27/2024 5:40 AM [facility] ALT 19 5 - 55 U/L 06/27/2024 5:40 AM [facility] AST 31 5 - 34 U/L 06/27/2024 5:40 AM [facility] Anion Gap 5(L) 6 - 16 06/27/2024 5:40 AM [facility] BUN/Creatinine Ratio 11 7 - 23 06/27/2024 5:40 AM [facility] Osmolality Calculated 292 275 - 295 mOsm/kg 06/27/2024 5:40 AM [facility] Albumin/Globulin Ratio 1.5 1.1 - 2.3 06/27/2024 5:40 AM [facility] eGFR by CKD-EPI >90 >=90 mL/min/1.7 3 m2 06/27/2024 5:40 AM [facility] Blood BLOOD SPECIMEN / Unknown Venipuncture / Unknown 06/27/2024 4:55 AM TOUR GUIDE 06/27/2024 5:11 AM [facility] Shama Hutchins MD LAB - CHEMISTRY ORDE [facility] Organization Address City/State/ZIP Co de Phone Number [address] [address], [facility] [phone] * MAGNESIUM BLOOD (06/27/2024 4:55 AM TOUR GUIDE) Magnesium 2.0 1.6 - 2.6 mg/dL 06/27/2024 5:40 AM [facility] Blood BLOOD SPECIMEN / Unknown Venipuncture / Unknown 06/27/2024 4:55 AM TOUR GUIDE 06/27/2024 5:11 AM TOUR GUIDE Shama Hutchins MD LAB - CHEMISTRY [facility] Performing Organization Address [facility] Co de Phone Number [address] [address], [facility] [phone] * ALCOHOL ETHYL BLOOD (06/27/2024 4:55 AM TOUR GUIDE) Only the most recent of3 resultswithin the time period is included. Ethanol (mg/dL) <10 <10 mg/dL 5:40 AM [facility] Ethanol Calculated (g/dL) <0.010 <=0.010 g/dL 06/27/2024 5:40 AM [facility] Blood BLOOD SPECIMEN / Unknown Venipuncture / Unknown 06/27/2024 4:55 AM TOUR GUIDE 06/27/2024 5:11 AM TOUR GUIDE Narrative [facility] - 06/27/2024 5:40 AM TOUR GUIDE Ethanol Interp <10: None Detected. Depression of ENVELOPE STUFFER: >100 mg/dl Potentially Critical: >250 mg/dl Potentially [...] - CHEMISTRY [facility] Performing Organization Address City/[facility]/ZIP Co de Phone Number [address] [address], [facility] [phone] * (ABNORMAL) VALPROIC ACID LEVEL (06/27/2024 4:55 AM TOUR GUIDE) Only the most recent of2 resultswithin the time period is included. Valproic Acid Total <13(L) 50 - 100 ug/mL 06/27/2024 5:44 AM TOUR GUIDE [facility] Blood BLOOD SPECIMEN / Unknown Venipuncture / Unknown 06/27/2024 4:55 AM TOUR GUIDE 06/27/2024 5:16 AM TOUR GUIDE Shama Hutchins MD LAB - CHEMISTRY [facility] Performing Organization Address [facility]/ZIP Co de Phone Number [address] [address], [facility] [phone] * (ABNORMAL) CARBAMAZEPINE LEVEL TOTAL (06/27/2024 4:55 AM TOUR GUIDE) Carbamazepine, trough <1.9(L) 4.0 - 12.0 ug/mL 06/27/2024 5:44 AM TOUR GUIDE [facility] Blood BLOOD SPECIMEN / Unknown Venipuncture / Unknown 06/27/2024 4:55 AM TOUR GUIDE 06/27/2024 5:16 AM TOUR GUIDE Shama Hutchins MD LAB - CHEMISTRY [facility] Performing Organization Address [facility]/ZIP Co de Phone Number [address] [address], [facility] [phone] * CT Head Wo Contrast (06/27/2024 3:53 AM TOUR GUIDE) Anatomical Region Laterality Modality Head Computed Tomogra phy 06/27/2024 4:36 AM TOUR GUIDE Impressions 06/27/2024 12:55 PM TOUR GUIDE IMPRESSION: 1.Streak artifact from the embolization material in the right frontal lobe limits evaluation. Within the limitations of this exam, no large acute intracranial hemorrhage or mass effect is identified. 2.A left parietal scalp contusion/hematoma with overlying skin gonzalo. No acute calvarial fractures. > Dictated by Mark Orozco DO (Director Of Development), 06/27/2024 4:55 AM. IPopeye MD have personally reviewed and interpreted this examination/study. > Interpreting Provider: Popeye Hughes MD on 06/27/2024 12:55 PM Narrative 06/27/2024 12:55 PM TOUR GUIDE PROCEDURE: ??CT HEAD WO CONTRAST, DATE/TIME OF EXAM: ??06/27/2024 3:54 AM, LOCATION ??[facility] INDICATION: S09.90XA: Traumatic injury of head, initial [...] DATE/TIME OF EXAM: 06/27/2024 3:54 AM, LOCATION [facility] INDICATION: S09.90XA: Traumatic injury of head, initial [...] fractures. > Dictated by Mark Orozco DO (Director Of Development), 06/27/2024 4:55AM. I, Popeye Hughes MD have personally reviewed and interpreted this examination/study. > Interpreting Provider: Popeye Hughes MD on 06/27/2024 12:55 PM Shama Hutchins MD CT ORDERABLES * (ABNORMAL) LACTIC ACID BLOOD REFLEX TO REPEAT (06/17/2024 9:45 AM TOUR GUIDE) Pathologist [facility] Lactic Acid 3.3(HH) <=2.0 mmol/L 06/17/2024 10:23 AM TOUR GUIDE [facility] Blood BLOOD SPECIMEN / Unknown Venipuncture / Unknown 06/17/2024 9:45 AM TOUR GUIDE 06/17/2024 9:51 AM TOUR GUIDE James Ogden MD LAB - CHEMISTRY [facility] [address] [place] [address] * HYDROXYBUTYRATE BETA (06/17/2024 9:45 AM TOUR GUIDE) Beta-Hydroxybu tyrate <0.50 <0.50 mmol/L 06/17/2024 10:23 AM TOUR GUIDE [facility] Blood BLOOD SPECIMEN / Unknown Venipuncture / Unknown 06/17/2024 9:45 AM TOUR GUIDE 06/17/2024 9:51 AM TOUR GUIDE Narrative [facility] - 06/17/2024 10:23 AM TOUR GUIDE Results >1.5 mmol/L may be indicative of diabetic ketoacidosis. Use in conjunction with Serum Glucose levels. James Ogden MD LAB - CHEMISTRY [facility] [address] [place] [address] * Incision/Drainage (06/15/2024 1:50 AM TOUR GUIDE) Narrative Zane Huynh MD - 06/15/2024 1:50 AM TOUR GUIDE Zane Huynh MD ? 06/15/2024 ??2:07 AM [...] Left 3Vw or More (06/13/2024 10:44 AM TOUR GUIDE) Anatomical Region Laterality Modality Wrist / Hand Digital Radiogra phy 06/13/2024 10:4 5 AM TOUR GUIDE Impressions 06/13/2024 11:03 AM TOUR GUIDE IMPRESSION: 1. Second digit amputation. 2. No acute osseous abnormality. Report was dictated by Levar Hutchinson MD, ([facility] resident). Cristiana Pastrana MD have personally reviewed and interpreted this examination/study. > Interpreting Provider: Cristiana Hernández MD on 06/13/2024 11:03 AM Narrative 06/13/2024 11:03 AM TOUR GUIDE PROCEDURE: ??XR HAND LEFT 3VW OR MORE, DATE/TIME OF EXAM: ??06/13/2024 10:45 AM, LOCATION ??[facility] INDICATION: S61.402A: Open wound of left hand [...] DATE/TIME OF EXAM: 06/13/2024 10:45 AM, LOCATION [facility] INDICATION: S61.402A: Open wound of left hand [...] Report was dictated by Levar Hutchinson MD, ([facility] resident). I, Cristiana Hernández MD have personally reviewed and interpreted this examination/study. > Interpreting Provider: Cristiana Hernández MD on 06/13/2024 11:03 AM Ara Saleem MD DIAGNOSTIC IMAGING O [facility] * CULTURE WOUND+GRAM STAIN (06/13/2024 10:29 AM TOUR GUIDE) Culture Rare normal skin anand BRIANA 06/16/2024 4:[address] [facility] MICROBIOLOGY Gram Stain Rare Polymorphonuclear cells 06/16/2024 4:[address] [facility]CRO[facility] Gram Stain No organisms seen 025 4:00 PM [facility] MICROBIOLOGY Microbiology SPECIMEN FROM WOUND / Unknown Collection / Unknown 06/13/2024 10:29 AM TOUR GUIDE 06/13/2024 10:34 AM TOUR GUIDE Ara Saleem MD LAB - MICROBIOLOGY O [facility] MICROBIOLOGY [address] [place] [address] [phone] * (ABNORMAL) URINE DRUG SCREEN IMMUNOASSAY (06/11/2024 11:34 AM TOUR GUIDE) Amphetamines Screen Urine Positive(A) Negative : < 1000 ng/mL 06/11/2024 12:15 PM [facility] Comment: Positive urine amphetamine screening results should be confirmed by another generally accepted non-immunological method such as gas chromatography or mass spectrometry. ? Barbiturates Screen Urine Negative Negative : < 200 ng/mL 06/11/2024 12:15 PM [facility] Benzodiazepine Screen Urine Negative Negative : < 200 ng/mL 06/11/2024 12:15 PM [facility] Opiates Urine Negative Negative : < 300 ng/mL 06/11/2024 12:15 PM [facility] Cocaine Metabolites Urine Negative Negative : < 300 ng/mL 06/11/2024 12:15 PM [facility] Phencyclidine Screen Urine Negative Negative : < 25 ng/ml 06/11/2024 12:15 PM [facility] Cannabinoids Screen Urine Positive(A) Negative : <50 ng/mL 06/11/2024 12:15 PM [facility] Comment:Positive urine canna binoids (THC) screening results should be confirmed by another generally accepted non-immunological method such as gas chromatography or mass spectrometry. Methadone Screen Urine Negative Negative : < 300 ng/mL 06/11/2024 12:15 PM [facility] Fentanyl Screen Urine Negative Negative : <1.5 ng/mL 06/11/2024 12:15 PM [facility] Urine URINE / Unknown Collection / Unknown 06/11/2024 11:34 AM [facility] 06/11/2024 11:45 AM [facility] - 06/11/2024 12:15 PM [facility] The Urine Toxicology Screening Panel does not screen for Propoxyphene, Meprobamate, Carisoprodol, Trazodone, lxin-yok-mjraaek medications and/or volatiles (Acetone, Isopropanol, Methanol or Ethylene Glycol). Ethanol, Salicylate, Acetaminophen, Tricyclic Antidepressants and several therapeutic drugs may be individually assayed in serum or plasma specimen. Toxicology testing by the [facility] is an aid to medical diagnosis and treatment of patients. No documented chain of custody was maintained. Results are intended to be used for clinical purposes only. ? Shivani Mccall MD LAB - URINE CHEMISTR Y ORDERABLES Performing Organization Address City/State/[facility] Co de Phone Number [facility] [address] [place] [address], [place] [phone] * (ABNORMAL) BASIC METABOLIC PANEL (CALCIUM TOTAL) (06/11/2024 10:52 AM [facility]) BUN 17 7 - 26 mg/dL 06/11/2024 11:30 AM [facility] Creatinine 0.64(L) 0.71 - 1.16 mg/dL 06/11/2024 11:30 AM [facility] Sodium 138 136 - 145 mmol/L 06/11/2024 11:30 AM [facility] Potassium 3.9 3.5 - 4.5 mmol/L 06/11/2024 11:30 AM [facility] Chloride 106 98 - 107 mmol/L 06/11/2024 11:30 AM [facility] CO2 24 22 - 29 mmol/L 06/11/2024 11:30 AM [facility] Glucose 133(H) 70 - 99 mg/dL 06/11/2024 11:30 AM [facility] Calcium 8.9 8.4 - 10.2 mg/dL 06/11/2024 11:30 AM [facility] Anion Gap 8 6 - 16 06/11/2024 11:30 AM [facility] BUN/Creatinine Ratio 27(H) 7 - 23 06/11/2024 11:30 AM [facility] Osmolality Calculated 289 275 - 295 mOsm/kg 06/11/2024 11:30 AM [facility] eGFR by CKD-EPI >90 >=90 mL/min/1.7 3 m2 06/11/2024 11:30 AM [facility] Blood BLOOD SPECIMEN / Unknown Venipuncture / Unknown 06/11/2024 10:52 AM [facility] 06/11/2024 11:04 AM [facility] Shivani Mccall MD LAB - CHEMISTRY TISHA WOODALL [facility] [address] [place] [address], [facility] [phone] from Last 3 Months Care Teams [employer] Relationship Specialty Start Date End Date None, Physician PCP - General 06/27/24
--- OUTSIDE RECORDS SUMMARY | 2024-07-04 16:50 | XMS_ITS | Clinical Summary ---
Author Organization [facility] Address [address] [place] [address] Care Team Providers Care Forestry Hunter Name Role Phone No, Physician Primary Care Provider [phone] Ashley Woodward MD Unavailable [phone] Ashley Woodward MD Unavailable [phone] Allergies Active Allergy Reactions Criticality Noted Date [...] 05/26/2024 Assessment & Plan (05/28/2024 8:43 AM BIOLOGICAL TECHNICIAN): Patient with known history of adriana, during [...] 05/12/2024 Assessment & Plan (05/22/2024 6:42 PM BIOLOGICAL TECHNICIAN): Pt sustained air box tester laceration over LEFT IF PIPJ on 04/30 [...] 05/12/2024 Assessment & Plan (05/19/2024 4:18 PM BIOLOGICAL TECHNICIAN): Resumed Haldol, seroquel, doxepin Resume outpatient follow up Homeless 05/12/2024 Assessment & Plan (05/19/2024 4:16 PM BIOLOGICAL TECHNICIAN): SW provided a list of shelters for patient to call on discharge Counseled against drug use Abscess of index finger 05/05/2024 Partial symptomatic epilepsy with complex partial seizures, intractable, without status epilepticus 01/15/2019 Intracranial hemorrhage 04/25/2016 AVM (arteriovenous malformation) brain 6 Bipolar 1 disorder 11/05/2015 Assessment & Plan (05/19/2024 4:18 PM BIOLOGICAL TECHNICIAN): Resumed home Haldol, seroquel, doxepin Resume Outpatient follow up Seizure disorder ([facility]) 11/05/2015 Assessment & Plan (05/28/2024 8:44 AM BIOLOGICAL TECHNICIAN): Has not been taking outpatient seizure medications, [...] Klonopin. Assessment & Plan (05/19/2024 4:19 PM BIOLOGICAL TECHNICIAN): Pt does not recall when his last seizure was but thinks it was not that long ago (at least less than a year). Has not been taking home Carbamazepine, depakote, keppra because the people [he] was with locked up [his] medications . - Klonopin hasn't been dispensed since 03/2024 so will hold. - Restarted carbamazepine, depakote and keppra Resume outpatient follow up Encounters Date Type Department Care Team Description 06/29/2024 3:03 AM BIOLOGICAL TECHNICIAN - 06/29/2024 4:24 AM [facility] Emergency [facility] Emergency Department [address] [place] [address] Baudilio Arellano MD Phantom pain (Primary Dx) Discharge Disposition: Discharge to home or self care 06/21/2024 3:33 AM BIOLOGICAL TECHNICIAN - 06/21/2024 11:59 PM BIOLOGICAL TECHNICIAN Hospital Encounter [facility] Emergency, Room R Discharge Disposition: Discharge to home or self care 06/20/2024 9:06 AM BIOLOGICAL TECHNICIAN - 06/21/2024 1:02 AM [facility] Emergency [facility] Emergency Department [address] [place] [address] Jyotsna Moralez MD Watson, Vishal Wood MD PhD Substance use (Primary Dx) Discharge Disposition: Discharge to home or self care 06/18/2024 6:32 PM BIOLOGICAL TECHNICIAN - 06/18/2024 11:59 PM BIOLOGICAL TECHNICIAN Hospital Encounter [facility] AMBULANCE BILLING Emergency, Room R Discharge Disposition: Discharge to home or self care 06/10/2024 10:23 PM BIOLOGICAL TECHNICIAN - 06/10/2024 11:28 PM [facility] Emergency [facility] Emergency Department [address] [place] [address] Tamika Machado MD Amputated finger, subsequent encounter (Primary Dx); Finger pain, left Discharge Disposition: Discharge to home or self care 06/10/2024 6:03 AM BIOLOGICAL TECHNICIAN - 06/10/2024 11:59 PM BIOLOGICAL TECHNICIAN Hospital Encounter [facility] Emergency, Room R Discharge Disposition: Discharge to home or self care 06/06/2024 1:29 AM BIOLOGICAL TECHNICIAN - 06/06/2024 11:59 PM BIOLOGICAL TECHNICIAN Hospital Encounter [facility] Emergency, Room R Discharge Disposition: Discharge to home or self care 05/29/2024 2:53 AM BIOLOGICAL TECHNICIAN - 05/29/2024 5:16 AM BIOLOGICAL TECHNICIAN Emergency [facility] Emergency Department [address] [place] [id number] Montrell Mir MD Neuropathic pain of finger, left (Primary Dx); Cold exposure, initial encounter Discharge Disposition: Discharge to home or self care 05/25/2024 4:48 PM BIOLOGICAL TECHNICIAN - 05/28/2024 2:45 PM BIOLOGICAL TECHNICIAN Hospital Encounter [address] [address] Ethan Wolf MD Osborn, Tiffany M., MD Mullins, Michael E., MD Bizarre behavior (Primary Dx); Nonadherence to medication; Use of cannabis; Psychomotor restlessness; 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]; Seizure disorder (CMS/[facility]) ([facility]) [G40.909] Discharge Disposition: Discharge to home or self care 05/20/2024 2:30 AM BIOLOGICAL TECHNICIAN - 05/20/2024 4:[address] [address] Westley Melgar MD Cold exposure, initial encounter (Primary Dx); Left hand pain Discharge Disposition: Discharge to home or self care 05/12/2024 5:43 AM BIOLOGICAL TECHNICIAN - 05/19/2024 4:14 PM BIOLOGICAL TECHNICIAN Hospital Encounter [address] [phone] Monroe Martínez MD House, Stacey Lynn, MD PhD Zion Saini MD Brito Rivera, Natalia, MD Farrag, Safa Elsebai, MD Finger infection (Primary Dx) Discharge Disposition: Discharge to home or self care 05/04/2024 4:13 AM BIOLOGICAL TECHNICIAN - 05/04/2024 11:59 PM BIOLOGICAL TECHNICIAN Hospital Encounter [facility] AM[facility]ANCE BILLING Emergency, Room R Discharge Disposition: Discharge to home or self care 04/30/2024 2:31 PM BIOLOGICAL TECHNICIAN - 04/30/2024 3:15 PM [facility] Emergency [facility] Emergency Department [address] [place] [id number] Cellulitis, unspecified cellulitis site (Primary Dx) Discharge Disposition: Discharge to home or self care 04/18/2024 11:11 AM BIOLOGICAL TECHNICIAN - 04/18/2024 11:59 PM BIOLOGICAL TECHNICIAN Hospital Encounter [facility] Emergency, Room R Discharge Disposition: Discharge to home or self care from Last 3 Months Immunizations Name Administration Dates Next Due Tdap [...] How often do you attend chur or alevism services? Patient unable to answer 05/26/2024 Do you belong to any clubs o r organizations such as jain groups, unions, fraternal or athletic groups, or [...] medical care, and heating? Very hard 05/26/2024 [facility] of Occupat ional Health - Occupational Stress [...] or living in a longterm (including now)? Yes 05/26/2024 Personal Safety Answer Date Recorded Have you ever been in or are you currently in a harmful physical or emotional relationship or is someone making you feel afraid or unsafe? Denies 06/29/2024 Sex and Gender Information Value Date Recorded Sex Assigned at Not on file Legal Sex Male 2:11 PM BIOLOGICAL TECHNICIAN Gender Identity Not on file Sexual Orientation Not on file Obstetrics History Last Filed Vital Signs Vital Sign Reading Time Taken Comments Blood Pressure 126/72 06/29/2024 3:00 AM BIOLOGICAL TECHNICIAN Pulse 89 06/29/2024 3:00 AM BIOLOGICAL TECHNICIAN Temperature 36.8 ??C (98.3 ??F) 06/29/2024 3:00 AM CS T Respiratory Rate 16 06/29/2024 3:00 AM BIOLOGICAL TECHNICIAN Oxygen Saturation 100% 06/29/2024 3:00 AM BIOLOGICAL TECHNICIAN Inhaled Oxygen Concentration - - Weight 77.1 kg (170 lb) 06/29/2024 3:00 AM BIOLOGICAL TECHNICIAN Height 177.8 cm (5' 10 ) 06/10/2024 9:40 PM BIOLOGICAL TECHNICIAN Body Mass Index 24.39 06/10/2024 9:40 PM BIOLOGICAL TECHNICIAN Plan of Treatment Health Maintenance Due Date Last Done Comments Depression Screening 1984 Varicella Vaccines (1 of 2 - 13+ 2-dose series) 1997 Regular Well Visit/Exam 18-64 2002 Influenza Vaccine (#1) 2024 9, 02/23/2017, 04/21/2016, Additional history exists DTaP/Tdap/Td Vaccine (2 - Td or Tdap) 04/30/2034 04/30/2024 Hepatitis C Screening Completed 09/27/2019 HPV Vaccines Aged Out No longer eligi ble based on patient's age to complete this topic Pneumococcal vaccine <65 Aged Out No longer eligible based on patient's age to complete this topic Procedures Procedure Name Priority Date/Time Associated Diagnosis Comments URINALYSIS AND REFLEX TO MICROSCOPIC STAT 06/20/2024 11:42 AM BIOLOGICAL TECHNICIAN DRUGS OF ABUSE SCREEN, URINE WITHOUT CONFIRMATION STAT 06/20/2024 11:42 AM BIOLOGICAL TECHNICIAN EGFR STAT 06/20/2024 9:16 AM BIOLOGICAL TECHNICIAN VALPROIC ACID LEVEL, TOTAL STAT 06/20/2024 9:16 AM BIOLOGICAL TECHNICIAN DIFFERENTIAL AUTO STAT 06/20/2024 9:1 6 AM BIOLOGICAL TECHNICIAN ETHANOL STAT 06/20/2024 9:16 AM BIOLOGICAL TECHNICIAN THYROID FUNCTION CASCADE STAT 06/20/2024 9:16 AM BIOLOGICAL TECHNICIAN COMPREHENSIVE METABOLIC PANEL STAT 06/20/2024 9:16 AM BIOLOGICAL TECHNICIAN CBC WITH AUTO DIFFERENTIAL STAT 06/20/2024 9:16 AM BIOLOGICAL TECHNICIAN POCT RAPID HIV ANTIBODY COMMUNITY SCREENING-CONOR ELIGIBLE Routine 05/29/2024 4:17 AM BIOLOGICAL TECHNICIAN XR HAND LEFT 3 OR MORE VIEWS ED 05/29/2024 3:38 AM BIOLOGICAL TECHNICIAN ED CRITICAL CARE Routine 05/26/2024 5:15 PM BIOLOGICAL TECHNICIAN URINALYSIS, MICROSCOPIC ONLY STAT 05/25/2024 10:06 PM BIOLOGICAL TECHNICIAN DRUGS OF ABUSE SCREEN, URINE WITHOUT CONFIRMATION STAT 05/25/2024 10:06 PM BIOLOGICAL TECHNICIAN URINALYSIS AND REFLEX TO MICROSCOPIC AND CULTURE STAT 05/25/2024 10:06 PM BIOLOGICAL TECHNICIAN EGFR STAT 05/25/2024 5:37 PM BIOLOGICAL TECHNICIAN DIFFERENTIAL AUTO STAT 05/25/2024 5:3 7 PM BIOLOGICAL TECHNICIAN ETHANOL STAT 05/25/2024 5:37 PM BIOLOGICAL TECHNICIAN THYROID FUNCTION CASCADE STAT 05/25/2024 5:37 PM BIOLOGICAL TECHNICIAN BASIC METABOLIC PANEL STAT 05/25/2024 5:37 PM BIOLOGICAL TECHNICIAN CBC WITH AUTO DIFFERENTIAL STAT 05/25/2024 5:37 PM BIOLOGICAL TECHNICIAN VALPROIC ACID LEVEL, TOTAL STAT 05/25/2024 5:37 PM BIOLOGICAL TECHNICIAN CARBAMAZEPINE LEVEL, TOTAL STAT 05/25/2024 5:37 PM BIOLOGICAL TECHNICIAN DRUGS OF ABUSE SCREEN, URINE WITH REFLEX CONFIRMATION Routine 05/19/2024 9:28 AM BIOLOGICAL TECHNICIAN EGFR Routine 05/19/2024 4:58 AM BIOLOGICAL TECHNICIAN DIFFERENTIAL AUTO Routine 05/19/2024 4:5 8 AM BIOLOGICAL TECHNICIAN COMPREHENSIVE METABOLIC PANEL Routine 05/19/2024 4:58 AM BIOLOGICAL TECHNICIAN CBC WITH AUTO DIFFERENTIAL Routine 05/19/2024 4:58 AM BIOLOGICAL TECHNICIAN EGFR Routine 05/18/2024 4:54 AM BIOLOGICAL TECHNICIAN DIFFERENTIAL AUTO Routine 05/18/2024 4:5 4 AM BIOLOGICAL TECHNICIAN COMPREHENSIVE METABOLIC PANEL Routine 05/18/2024 4:54 AM BIOLOGICAL TECHNICIAN CBC WITH AUTO DIFFERENTIAL Routine 05/18/2024 4:54 AM BIOLOGICAL TECHNICIAN EGFR Routine 05/17/2024 4:30 AM BIOLOGICAL TECHNICIAN DIFFERENTIAL AUTO Routine 05/17/2024 4: 30 AM BIOLOGICAL TECHNICIAN COMPREHENSIVE METABOLIC PANEL Routine 05/17/2024 4:30 AM BIOLOGICAL TECHNICIAN CBC WITH AUTO DIFFERENTIAL Routine 05/17/2024 4:30 AM BIOLOGICAL TECHNICIAN EGFR Routine 05/16/2024 5:18 AM BIOLOGICAL TECHNICIAN DIFFERENTIAL AUTO Routine 05/16/2024 5:1 8 AM BIOLOGICAL TECHNICIAN VANCOMYCIN LEVEL TROUGH Timed 05/16/2024 5:18 AM BIOLOGICAL TECHNICIAN COMPREHENSIVE METABOLIC PANEL Routine 05/16/2024 5:18 AM BIOLOGICAL TECHNICIAN CBC WITH AUTO DIFFERENTIAL Routine 05/16/2024 5:18 AM BIOLOGICAL TECHNICIAN EGFR Routine 05/15/2024 4:41 AM BIOLOGICAL TECHNICIAN DIFFERENTIAL AUTO Routine 05/15/2024 4:4 1 AM BIOLOGICAL TECHNICIAN VANCOMYCIN LEVEL TROUGH Timed 05/15/2024 4:41 AM BIOLOGICAL TECHNICIAN COMPREHENSIVE METABOLIC PANEL Routine 05/15/2024 4:41 AM BIOLOGICAL TECHNICIAN CBC WITH AUTO DIFFERENTIAL Routine 05/15/2024 4:41 AM BIOLOGICAL TECHNICIAN BLOOD CULTURE Routine 05/14/2024 11:29 PM BIOLOGICAL TECHNICIAN BLOOD CULTURE Routine 05/14/2024 11:29 PM BIOLOGICAL TECHNICIAN EGFR Routine 05/14/2024 5:08 AM BIOLOGICAL TECHNICIAN DIFFERENTIAL AUTO Routine 05/14/2024 5:0 8 AM BIOLOGICAL TECHNICIAN COMPREHENSIVE METABOLIC PANEL Routine 05/14/2024 5:08 AM BIOLOGICAL TECHNICIAN CBC WITH AUTO DIFFERENTIAL Routine 05/14/2024 5:08 AM BIOLOGICAL TECHNICIAN VANCOMYCIN LEVEL TROUGH STAT 05/13/2024 4:15 PM BIOLOGICAL TECHNICIAN EGFR Routine 05/13/2024 6:14 AM BIOLOGICAL TECHNICIAN DIFFERENTIAL AUTO Routine 05/13/2024 6:1 4 AM BIOLOGICAL TECHNICIAN COMPREHENSIVE METABOLIC PANEL Routine 05/13/2024 6:14 AM BIOLOGICAL TECHNICIAN CBC WITH AUTO DIFFERENTIAL Routine 05/13/2024 6:14 AM BIOLOGICAL TECHNICIAN VALPROIC ACID LEVEL, TOTAL Routine 05/13/2024 6:14 AM BIOLOGICAL TECHNICIAN CARBAMAZEPINE LEVEL, TOTAL Routine 05/13/2024 6:14 AM BIOLOGICAL TECHNICIAN B CHECK SAMPLE STAT 05/12/2024 12:27 PM BIOLOGICAL TECHNICIAN AEROBIC AND ANAEROBIC CULTURE AND GRAM STAIN Routine 05/12/2024 12:27 PM BIOLOGICAL TECHNICIAN SURGICAL PATHOLOGY Routine 05/12/2024 12 :00 PM BIOLOGICAL TECHNICIAN TYPE AND SCREEN STAT 05/12/2024 9:30 AM BIOLOGICAL TECHNICIAN XR HAND LEFT 3 OR MORE VIEWS ED 05/12/2024 6:27 AM BIOLOGICAL TECHNICIAN EGFR STAT 05/12/2024 6:05 AM BIOLOGICAL TECHNICIAN DIFFERENTIAL AUTO STAT 05/12/2024 6:0 5 AM BIOLOGICAL TECHNICIAN CRP (ACUTE PHASE) STAT 05/12/2024 6:0 5 AM BIOLOGICAL TECHNICIAN ERYTHROCYTE SEDIMENTATION RATE STAT 05/12/2024 6:05 AM BIOLOGICAL TECHNICIAN COMPREHENSIVE METABOLIC PANEL STAT 05/12/2024 6:05 AM BIOLOGICAL TECHNICIAN CBC WITH AUTO DIFFERENTIAL STAT 05/12/2024 6:05 AM BIOLOGICAL TECHNICIAN BLOOD CULTURE STAT 05/12/2024 6:05 AM BIOLOGICAL TECHNICIAN BLOOD CULTURE STAT 05/12/2024 6:05 AM BIOLOGICAL TECHNICIAN XR FINGER 2ND INDEX LEFT ED 04/30/2024 2:29 PM BIOLOGICAL TECHNICIAN HEPATITIS PANEL, ACUTE Routine 0 1:01 PM CDT from Last 3 Months or Most Recently Relevant to Health Maintenance Results * Urinalysis reflex to microscopic (06/20/2024 11:42 AM BIOLOGICAL TECHNICIAN) Color, ur Straw Yellow Clarity, ur Clear Clear [facility] Specific gravity, ur 1.009 1.003 - 1.030 [facility] pH, urine 7.0 [facility] Comment: Interpretive Data ? Urine pH is affected by diet, medications, systemic acid-base disturbances, and renal tubular function. ??pH may affect urinary stone formation. ??For example, urine pH below 6.0 may help reduce the tendency for calcium phosphate stones and pH greater than 6.0 may reduce the tendency for uric acid stone formation. Source: [employer] Current Interpretive Data was last revised on 2017 Protein, ur ql Negative Negative [facility] Glucose, ur ql Negative Negative [facility] Ketones, ur Negative Negative [facility] Bilirubin, ur Negative Negative [facility] Blood, ur Negative Negative [facility] Urobilinogen, ur <2.0 <2.0 mg/dL [facility] Nitrite, ur Negative Negative [facility] Leukocyte esterase, ur Negative Negative [facility] UA reflex comment Reflex conditions for microscopic UA not met. [facility] Urine 06/20/2024 11:4 2 AM BIOLOGICAL TECHNICIAN 06/20/2024 12:46 PM BIOLOGICAL TECHNICIAN us Jyotsna Moralez MD LAB URINE ORDERABLES Final Result [facility] Department [place] [address] * (ABNORMAL) Drugs of Abuse Screen, Urine without Confirmation (06/20/2024 11:42 AM BIOLOGICAL TECHNICIAN) Amphetamine, ur Not Detected CutOff 500ng/mL Comment: Interpretive Data - Amphetamines: ??Samples containing greater than 500 ng/mL d-methamphetamine ??or other cross-reacting amphetamine compounds are reported as positive. ??Amphetamine immunoassays are subject to significant false positive rates due to cross-reactivity of non-amphetamine drugs. Confirmatory testing required for definitive results. Current Interpretive Data was last reviewed 2023. Barbiturates, ur Not Detected CutOff 200ng/mL [facility] Comment: Interpretive Data - Barbiturates: ??Samples containing greater than 200 ng/mL secobarbital or other cross-reacting barbiturate compounds are reported as positive. ??False positive and false negative results are possible. Confirmatory testing required for definitive results. Current Interpretive Data was last reviewed 2023. Benzodiazepines, ur Not Detected CutOff 100ng/mL [facility] Comment: Interpretive Data - Benzodiazepines: ??Samples containing greater than 100 ng/mL nordiazepam or other cross-reacting compounds are reported as positive. False positive and false negative results are possible. Confirmatory testing required for definitive results. Current Interpretive Data was last reviewed 2023. Cannabinoids, ur Screen Positive, presumptive (A) CutOff 50 ng/mL [facility] Comment: Interpretive Data - Cannabinoids: ??Samples containing greater than 50 ng/mL delta-9 THC -COOH or other cross-reacting compounds are reported as positive. ??False positive and false negative results are possible. ??Confirmatory testing required for definitive results. Current Interpretive Data was last reviewed 2023. Cocaine, ur Not Detected CutOff 150ng/mL [facility] Comment: Interpretive Data - Cocaine: ??Samples containing greater than 150 ng/mL benzoylecgonine or other cross-reacting compounds are reported as positive. False positive and false negative results are possible. Confirmatory testing required for definitive results. Current Interpretive Data was last reviewed 2023. Fentanyl, Ur Not Detected CutOff 5 ng/mL [facility] Comment: Interpretive Data - Fentanyl: ?? Samples containing greater than 5 ng/mL norfentanyl, fentanyl, or other cross-reacting fentanyl compounds are reported as positive. False positive and false negative results are possible. Confirmatory testing required for definitive results. Current Interpretive Data was last reviewed 2023. Methadone, ur Not Detected CutOff 300ng/mL [facility] Comment: Interpretive Data - Methadone: ??Samples containing greater than 300 ng/mL d,l-methadone or other cross-reacting compounds are reported as positive. ??False positive and false negative results are possible. Confirmatory testing required for definitive results. Current Interpretive Data was last reviewed 2023. Opiates, ur Not Detected CutOff 300ng/mL [facility] Comment: Interpretive Data - Opiates: ??Samples containing greater than 300 ng/mL morphine or other cross-reacting compounds are reported as positive. ??False positive and false negative results are possible. Confirmatory testing required for definitive results. Current Interpretive Data was last reviewed 2023. Oxycodone, ur Not Detected CutOff 100ng/mL [facility] Comment: Interpretive Data - Oxycodone: ??Samples containing greater than 100 ng/mL oxycodone or other cross-reacting compounds are reported as ??positive. ??False positive and false negative results are possible. Confirmatory testing required for definitive results. Current Interpretive Data was last reviewed 2023. Phencyclidine, ur Not Detected CutOff 25 ng/mL [facility] Comment: Interpretive Data - Phencyclidine: ??Samples containing greater than 25 ng/mL phencyclidine or other cross-reacting compounds are reported as positive. ??False positive and false negative results are possible. Confirmatory testing required for definitive results. Current Interpretive Data was last reviewed 2023. Urine Creatinine 37 mg/dL [facility] Comment: Interpretive Data Urine Creatinine: < 10 mg/dL is extremely dilute = or > 10 but < 20 mg/dL is dilute = or > 20 mg/dL is normal Current Interpretive Data was last revised on 2017. Urine 06/20/2024 11:4 2 AM BIOLOGICAL TECHNICIAN 06/20/2024 12:46 PM BIOLOGICAL TECHNICIAN Narrative [facility] - 06/20/2024 1:25 PM BIOLOGICAL TECHNICIAN Drug of Abuse screening is performed by immunoassay for medical purposes only. ??This is not to be used for Pain Management purposes. us Jyotsna Moralez MD LAB URINE ORDERABLES Final Result [facility] Department [place] [address] * eGFR (06/20/2024 9:16 AM BIOLOGICAL TECHNICIAN) eGFR >90 >=60 mL/min/1. 73 m2 Comment: [...] last reviewed 2021. Blood 06/20/2024 9:16 AM BIOLOGICAL TECHNICIAN 06/20/2024 9:54 AM BIOLOGICAL TECHNICIAN us Jyotsna Moralez MD LAB BLOOD ORDERABLES Final Result [facility] Department [place] [address] * Differential, auto (06/20/2024 9:16 AM BIOLOGICAL TECHNICIAN) Neutrophil abs 5.3 1.5 - 6.5 K/cumm Imm gran abs 0.0 0.0 - 0.1 K/cumm [facility] Lymphocyte abs 2.8 0.8 - 3.3 K/cumm [facility] Monocyte abs 0.6 0.2 - 0.8 K/cumm [facility] Eosinophil abs 0.2 0.0 - 0.5 K/cumm [facility] Basophil abs 0.1 0.0 - 0.1 K/cumm [facility] Neutrophil pct 58.8 % [facility] Comment: Interpretive Data Percent cell count reference ranges are not reported, since discordance with absolute values may lead to misinterpretation of CBC data. Current Interpretive Data was last revised on 2017. Imm gran pct 0.4 % [facility] Comment: Interpretive Data Percent cell count reference ranges are not reported, since discordance with absolute values may lead to misinterpretation of CBC data. Current Interpretive Data was last revised on 2017. Lymphocyte pct 31.7 % [facility] Comment: Interpretive Data Percent cell count reference ranges are not reported, since discordance with absolute values may lead to misinterpretation of CBC data. Current Interpretive Data was last revised on 2017. Monocyte pct 6.1 % [facility] Comment: Interpretive Data Percent cell count reference ranges are not reported, since discordance with absolute values may lead to misinterpretation of CBC data. Current Interpretive Data was last revised on 2017. Eosinophil pct 2.3 % [facility] Comment: Interpretive Data Percent cell count reference ranges are not reported, since discordance with absolute values may lead to misinterpretation of CBC data. Current Interpretive Data was last revised on 2017. Basophil pct 0.7 % [facility] Comment: Interpretive Data Percent cell count reference ranges are not reported, since discordance with absolute values may lead to misinterpretation of CBC data. Current Interpretive Data was last revised on 2017. Blood 06/20/2024 9:16 AM BIOLOGICAL TECHNICIAN 06/20/2024 9:46 AM BIOLOGICAL TECHNICIAN Jyotsna Moralez MD LAB BLOOD ORDERABLES Final Result Performing Organization Address [facility] Co de Phone Number [facility] Department [place] [address] * Thyroid Function [place] (06/20/2024 9:16 AM BIOLOGICAL TECHNICIAN) Pathologist [facility] TSH 0.91 0.30 - 4.20 mcIUnit/mL Blood 06/20/2024 9:16 AM BIOLOGICAL TECHNICIAN 06/20/2024 9:46 AM BIOLOGICAL TECHNICIAN us Jyotsna Moralez MD LAB BLOOD ORDERABLES Final Result Performing Organization Address [facility] Co de Phone Number [facility] [place] [address] * CBC with auto differential (06/20/2024 9:16 AM BIOLOGICAL TECHNICIAN) WBC 9.0 3.8 - 9.9 K/cumm Hgb 13.3 13.0 - 17.5 g/dL [facility] Hct 39.6 38.9 - 50.3 % [facility] Plt 380 150 - 400 K/cumm [facility] MPV 9.6 9.1 - 12.[address] [facility] RBC 4.39 4.30 - 5.80 M/cumm [facility] MCV 90.2 81.3 - 96.[address] [facility] MCH 30.3 27.1 - 33.[address] [facility] MCHC 33.6 32.3 - 35.7 g/dL [facility] RDW CV 12.1 11.1 - 14.9 % [facility] RDW SD 40.0 35.7 - 48.[address] [facility] NRBC abs 0.00 0.00 - 0.01 K/cumm [facility] Blood (Blood, Venous) 06/20/2024 9:16 AM BIOLOGICAL TECHNICIAN 06/20/2024 9:46 AM BIOLOGICAL TECHNICIAN Jyotsna Moralez MD LAB BLOOD ORDERABLES Final Result Performing Organization Address [facility] Co de Phone Number [facility] [place] [address] * Ethanol (06/20/2024 9:16 AM BIOLOGICAL TECHNICIAN) Ethanol <10 <=10 mg/dL Comment: Interpretive Data Legal limit of intoxication > or = 80 mg/dL Levels > or = 400 mg/dL are potentially TOXIC. Current interpretive data was last revised on 2018. Blood 06/20/2024 9:16 AM BIOLOGICAL TECHNICIAN 06/20/2024 9:46 AM BIOLOGICAL TECHNICIAN Jyotsna Moralez MD LAB BLOOD ORDERABLES Final Result Performing Organization Address [facility] Co de Phone Number [facility] [place] [address] * (ABNORMAL) Valproic acid level, total (06/20/2024 9:16 AM BIOLOGICAL TECHNICIAN) Valproic Acid <15.0(L) 50.0 - 100.0 mcg/mL Comment: Interpretive Data Therapeutic or toxic effects of anticonvulsant drugs may occur at different concentrations in different patients and the correlation between dose and clinical effect must be evaluated individually. Current interpretative data was last revised on 13. Blood 06/20/2024 9:16 AM BIOLOGICAL TECHNICIAN 06/20/2024 9:54 AM BIOLOGICAL TECHNICIAN us Jyotsna Moralez MD LAB BLOOD ORDERABLES Final Result [facility] Department [place] [address] * (ABNORMAL) Comprehensive metabolic panel (06/20/2024 9:16 AM BIOLOGICAL TECHNICIAN) Sodium 139 135 - 145 mmol/L Potassium, pl 4.4 3.3 - 4.9 mmol/L [facility] Chloride 101 97 - 110 mmol/L [facility] CO2 29 22 - 32 mmol/L [facility] Anion gap 9 2 - 15 mmol/L [facility] BUN 10 6 - 25 mg/dL [facility] Creatinine 0.67(L) 0.80 - 1.30 mg/dL [facility] Glucose 88 70 - 199 mg/dL [facility] Comment: Interpretive Data Fasting glucose >/= 126 [...] 2022. Calcium 10.2 8.5 - 10.3 mg/dL [facility] Bilirubin, total 0.5 0.1 - 1.2 mg/dL [facility] Protein, pl 7.6 6.5 - 8.5 g/dL [facility] Albumin 4.7 3.5 - 5.0 g/dL [facility] Alk phos 84 40 - 130 Units/L [facility] ALT 28 7 - 55 Units/L [facility] AST 38 10 - 50 Units/L [facility] Blood 06/20/2024 9:16 AM BIOLOGICAL TECHNICIAN 06/20/2024 9:46 AM BIOLOGICAL TECHNICIAN us Jyotsna Moralez MD LAB BLOOD ORDERABLES Final Result [facility] Department [place] [address] * POCT Rapid HIV Antibody Community Screening-Conor Eligible (05/29/2024 4:17 AM BIOLOGICAL TECHNICIAN) Rapid HIV, POC Negative Negative QC Control Line Acceptable Blood 05/29/2024 4:17 AM BIOLOGICAL TECHNICIAN us Montrell Mir MD POINT OF CARE TEST ORDERAB LES Final Result * XR Hand Left 3+ views (05/29/2024 3:38 AM BIOLOGICAL TECHNICIAN) Anatomical Region Laterality Modality Upper Extremities, Hand Left Computed Radiography 05/29/2024 3:41 AM BIOLOGICAL TECHNICIAN Impressions 05/29/2024 7:26 AM BIOLOGICAL TECHNICIAN The current study is compared with the [...] it. Electronically signed by: Junior Caldwell M.D. Narrative 05/29/2024 7:26 AM BIOLOGICAL TECHNICIAN EXAMINATION: XR HAND LEFT 3 OR MORE [...] Result * Critical Care (05/26/2024 5:15 PM BIOLOGICAL TECHNICIAN) Narrative Ethan Dewitt MD - 05/26/2024 5:15 PM BIOLOGICAL TECHNICIAN Ethan Dewitt MD ? 05/26/2024 ??5:17 PM [...] microscopic and culture Urine (05/25/2024 10:06 PM BIOLOGICAL TECHNICIAN) Color, ur Yellow Yellow Clarity, ur Clear Clear [facility] Specific gravity, ur 1.036(H) 1.003 - 1.[address] [facility] pH, urine 6.[address] [facility] Comment: Interpretive Data ? Urine pH is affected by diet, medications, systemic acid-base disturbances, and renal tubular function. ??pH may affect urinary stone formation. ??For example, urine pH below 6.0 may help reduce the tendency for calcium phosphate stones and pH greater than 6.0 may reduce the tendency for uric acid stone formation. Source: [facility] Current Interpretive Data was last revised on 2017 Protein, ur ql 1+(A) Negative [facility] Glucose, ur ql Negative Negative [facility] Ketones, ur Trace Negative [facility] Bilirubin, ur Negative Negative [facility] Blood, ur Negative Negative [facility] Urobilinogen, ur <2.0 <2.0 mg/dL [facility] Nitrite, ur Negative Negative [facility] Leukocyte esterase, ur Negative Negative [facility] UA reflex comment Reflex to microscopic UA will be performed. [facility] Urine 05/25/2024 10:0 6 PM BIOLOGICAL TECHNICIAN 05/25/2024 10:08 PM BIOLOGICAL TECHNICIAN Maria Guadalupe Hein NP LAB MICROBIOLOGY - GENERAL ORDERABLES Final Result Performing Organization Address City/State/[facility] Co de Phone Number [facility] Department [place] [address] * (ABNORMAL) Drugs of Abuse Screen, Urine without Confirmation (05/25/2024 10:06 PM BIOLOGICAL TECHNICIAN) Amphetamine, ur Not Detected CutOff 500ng/mL Comment: Interpretive Data - Amphetamines: ??Samples containing greater than 500 ng/mL d-methamphetamine ??or other cross-reacting amphetamine compounds are reported as positive. ??Amphetamine immunoassays are subject to significant false positive rates due to cross-reactivity of non-amphetamine drugs. Confirmatory testing required for definitive results. Current Interpretive Data was last reviewed 2023. Barbiturates, ur Not Detected CutOff 200ng/mL [facility] Comment: Interpretive Data - Barbiturates: ??Samples containing greater than 200 ng/mL secobarbital or other cross-reacting barbiturate compounds are reported as positive. ??False positive and false negative results are possible. Confirmatory testing required for definitive results. Current Interpretive Data was last reviewed 2023. Benzodiazepines, ur Not Detected CutOff 100ng/mL [facility] Comment: Interpretive Data - Benzodiazepines: ??Samples containing greater than 100 ng/mL nordiazepam or other cross-reacting compounds are reported as positive. False positive and false negative results are possible. Confirmatory testing required for definitive results. Current Interpretive Data was last reviewed 2023. Cannabinoids, ur Screen Positive, presumptive (A) CutOff 50 ng/mL [facility] Comment: Interpretive Data - Cannabinoids: ??Samples containing greater than 50 ng/mL delta-9 THC -COOH or other cross-reacting compounds are reported as positive. ??False positive and false negative results are possible. ??Confirmatory testing required for definitive results. Current Interpretive Data was last reviewed 2023. Cocaine, ur Not Detected CutOff 150ng/mL [facility] Comment: Interpretive Data - Cocaine: ??Samples containing greater than 150 ng/mL benzoylecgonine or other cross-reacting compounds are reported as positive. False positive and false negative results are possible. Confirmatory testing required for definitive results. Current Interpretive Data was last reviewed 2023. Fentanyl, Ur Not Detected CutOff 5 ng/mL [facility] Comment: Interpretive Data - Fentanyl: ?? Samples containing greater than 5 ng/mL norfentanyl, fentanyl, or other cross-reacting fentanyl compounds are reported as positive. False positive and false negative results are possible. Confirmatory testing required for definitive results. Current Interpretive Data was last reviewed 2023. Methadone, ur Not Detected CutOff 300ng/mL [facility] Comment: Interpretive Data - Methadone: ??Samples containing greater than 300 ng/mL d,l-methadone or other cross-reacting compounds are reported as positive. ??False positive and false negative results are possible. Confirmatory testing required for definitive results. Current Interpretive Data was last reviewed 2023. Opiates, ur Not Detected CutOff 300ng/mL [facility] Comment: Interpretive Data - Opiates: ??Samples containing greater than 300 ng/mL morphine or other cross-reacting compounds are reported as positive. ??False positive and false negative results are possible. Confirmatory testing required for definitive results. Current Interpretive Data was last reviewed 2023. Oxycodone, ur Not Detected CutOff 100ng/mL [facility] Comment: Interpretive Data - Oxycodone: ??Samples containing greater than 100 ng/mL oxycodone or other cross-reacting compounds are reported as ??positive. ??False positive and false negative results are possible. Confirmatory testing required for definitive results. Current Interpretive Data was last reviewed 2023. Phencyclidine, ur Not Detected CutOff 25 ng/mL [facility] Comment: Interpretive Data - Phencyclidine: ??Samples containing greater than 25 ng/mL phencyclidine or other cross-reacting compounds are reported as positive. ??False positive and false negative results are possible. Confirmatory testing required for definitive results. Current Interpretive Data was last reviewed 2023. Urine Creatinine 296 mg/dL [facility] Comment: Interpretive Data Urine Creatinine: < 10 mg/dL is extremely dilute = or > 10 but < 20 mg/dL is dilute = or > 20 mg/dL is normal Current Interpretive Data was last revised on 2017. Urine 05/25/2024 10:0 6 PM BIOLOGICAL TECHNICIAN 05/25/2024 10:16 PM BIOLOGICAL TECHNICIAN Narrative [facility] - 05/25/2024 10:49 PM BIOLOGICAL TECHNICIAN Drug of Abuse screening is performed by immunoassay for medical purposes only. ??This is not to be used for Pain Management purposes. Maria Guadalupe Hein NP LAB URINE ORDERABLES Final Result [facility] Department [place] [address] * (ABNORMAL) Urinalysis, microscopic only (05/25/2024 10:06 PM BIOLOGICAL TECHNICIAN) WBC, ur 0-5 0 - 5 /HPF RBC, ur 0-2 0 - 2 /HPF [facility] Bacteria, ur Trace(A) [facility] Mucous, ur Present(A) [facility] Culture Reflex Comment Reflex conditions for urine culture (WBC >10) not met. [facility] Urine 05/25/2024 10:0 6 PM BIOLOGICAL TECHNICIAN 05/25/2024 10:08 PM BIOLOGICAL TECHNICIAN Maria Guadalupe Hein SCREEN DOOR MAKER LAB URINE ORDERABLES Final Result [facility] Department [place] [address] * eGFR (05/25/2024 5:37 PM BIOLOGICAL TECHNICIAN) eGFR >90 >=60 mL/min/1. 73 m2 Comment: [...] last reviewed 2021. Blood 05/25/2024 5:37 PM BIOLOGICAL TECHNICIAN 05/25/2024 6:06 PM BIOLOGICAL TECHNICIAN us Maria Guadaulpe Hein SCREEN DOOR MAKER LAB BLOOD ORDERABLES Final Result [facility] Department [place] [address] * (ABNORMAL) Differential, auto (05/25/2024 5:37 PM BIOLOGICAL TECHNICIAN) Neutrophil abs 7.9(H) 1.5 - 6.5 K/cumm Imm gran abs 0.0 0.0 - 0.1 K/cumm [facility] Lymphocyte abs 3.6(H) 0.8 - 3.3 K/cumm [facility] Monocyte abs 1.4(H) 0.2 - 0.8 K/cumm [facility] Eosinophil abs 0.1 0.0 - 0.5 K/cumm [facility] Basophil abs 0.1 0.0 - 0.1 K/cumm [facility] Neutrophil pct 60.3 % [facility] Comment: Interpretive Data Percent cell count reference ranges are not reported, since discordance with absolute values may lead to misinterpretation of CBC data. Current Interpretive Data was last revised on 2017. Imm gran pct 0.3 % [facility] Comment: Interpretive Data Percent cell count reference ranges are not reported, since discordance with absolute values may lead to misinterpretation of CBC data. Current Interpretive Data was last revised on 2017. Lymphocyte pct 27.6 % [facility] Comment: Interpretive Data Percent cell count reference ranges are not reported, since discordance with absolute values may lead to misinterpretation of CBC data. Current Interpretive Data was last revised on 2017. Monocyte pct 10.6 % [facility] Comment: Interpretive Data Percent cell count reference ranges are not reported, since discordance with absolute values may lead to misinterpretation of CBC data. Current Interpretive Data was last revised on 2017. Eosinophil pct 0.5 % [facility] Comment: Interpretive Data Percent cell count reference ranges are not reported, since discordance with absolute values may lead to misinterpretation of CBC data. Current Interpretive Data was last revised on 2017. Basophil pct 0.7 % [facility] Comment: Interpretive Data Percent cell count reference ranges are not reported, since discordance with absolute values may lead to misinterpretation of CBC data. Current Interpretive Data was last revised on 2017. Blood 05/25/2024 5:37 PM BIOLOGICAL TECHNICIAN 05/25/2024 6:06 PM BIOLOGICAL TECHNICIAN Maria Guadalupe Hein SCREEN DOOR MAKER LAB BLOOD ORDERABLES Final Result Performing Organization Address City/[facility] Co de Phone Number [facility] [place] [address] * Thyroid Function [place] (05/25/2024 5:37 PM BIOLOGICAL TECHNICIAN) [facility] TSH 0.67 0.30 - 4.20 mcIUnit/mL Blood 05/25/2024 5:37 PM BIOLOGICAL TECHNICIAN 05/25/2024 6:06 PM BIOLOGICAL TECHNICIAN Maria Guadalupe Hein SCREEN DOOR MAKER LAB BLOOD ORDERABLES Final Result Performing Organization Address [facility] de Phone Number [facility] [place] [address] * (ABNORMAL) CBC with auto differential (05/25/2024 5:37 PM BIOLOGICAL TECHNICIAN) [facility] WBC 13.1(H) 3.8 - 9.9 K/cumm Hgb 12.2(L) 13.0 - 17.5 g/dL [facility] Hct 35.2(L) 38.9 - 50.3 % [facility] Plt 413(H) 150 - 400 K/cumm [facility] MPV 10.1 9.1 - 12.[address] [facility] RBC 4.07(L) 4.30 - 5.80 M/cumm [facility] MCV 86.5 81.3 - 96.[address] [facility] MCH 30.0 27.1 - 33.[address] [facility] MCHC 34.7 32.3 - 35.7 g/dL [facility] RDW CV 12.2 11.1 - 14.9 % [facility] RDW SD 38.2 35.7 - 48.[address] [facility] NRBC abs 0.00 0.00 - 0.01 K/cumm [facility] Blood 05/25/2024 5:37 PM BIOLOGICAL TECHNICIAN 05/25/2024 6:06 PM BIOLOGICAL TECHNICIAN Maria Guadalupe Hein SCREEN DOOR MAKER LAB BLOOD ORDERABLES Final Result Performing Organization Address [facility] de Phone Number [facility] [place] [address] * Ethanol (05/25/2024 5:37 PM BIOLOGICAL TECHNICIAN) Ethanol <10 <=10 mg/dL Comment: Interpretive Data Legal limit of intoxication > or = 80 mg/dL Levels > or = 400 mg/dL are potentially TOXIC. Current interpretive data was last revised on 2018. Blood 05/25/2024 5:37 PM BIOLOGICAL TECHNICIAN 05/25/2024 6:06 PM BIOLOGICAL TECHNICIAN Maria Guadalupe Hein SCREEN DOOR MAKER LAB BLOOD ORDERABLES Final Result Performing Organization Address [facility] de Phone Number [facility] Department [place] [address] * (ABNORMAL) Valproic acid level, total (05/25/2024 5:37 PM BIOLOGICAL TECHNICIAN) Valproic Acid <15.0(L) 50.0 - 100.0 mcg/mL Comment: Interpretive Data Therapeutic or toxic effects of anticonvulsant drugs may occur at different concentrations in different patients and the correlation between dose and clinical effect must be evaluated individually. Current interpretative data was last revised on 13. Blood 05/25/2024 5:37 PM BIOLOGICAL TECHNICIAN 05/25/2024 6:06 PM BIOLOGICAL TECHNICIAN Maria Guadalupe Hein SCREEN DOOR MAKER LAB BLOOD ORDERABLES Final Result Performing Organization Address [facility] de Phone Number [facility] Department [place] [address] * (ABNORMAL) Carbamazepine level, total (05/25/2024 5:37 PM BIOLOGICAL TECHNICIAN) Pathologist [facility] Carbamazepine <3.0(L) 4.0 - 12.0 mcg/mL Comment: Interpretive Data Therapeutic or Toxic effect of anticonvulsant drugs may occur at different concentrations in different patients and the correlation between dose and clinical effect must be evaluated individually. Current interpretive data was last revised on 13. Blood 05/25/2024 5:37 PM BIOLOGICAL TECHNICIAN 05/25/2024 6:06 PM BIOLOGICAL TECHNICIAN Maria Guadalupe Hein NP LAB BLOOD ORDERABLES Final Result [facility] [place] [address] * Basic metabolic panel (05/25/2024 5:37 PM BIOLOGICAL TECHNICIAN) [facility] Sodium 136 135 - 145 mmol/L Potassium, pl 3.8 3.3 - 4.9 mmol/L [facility] Chloride 100 97 - 110 mmol/L [facility] CO2 25 22 - 32 mmol/L [facility] Anion gap 11 2 - 15 mmol/L [facility] BUN 20 6 - 25 mg/dL [facility] Creatinine 0.82 0.80 - 1.30 mg/dL [facility] Glucose 119 70 - 199 mg/dL [facility] Comment: Interpretive Data Fasting glucose >/= 126 [...] 2022. Calcium 9.8 8.5 - 10.3 mg/dL [facility] Blood 05/25/2024 5:37 PM BIOLOGICAL TECHNICIAN 05/25/2024 6:06 PM BIOLOGICAL TECHNICIAN us Maria Guadalupe eHin SCREEN DOOR MAKER LAB BLOOD ORDERABLES Final Result [facility] Department [place] [address] * (ABNORMAL) Drugs of Abuse Screen, Urine with Reflex Confirmation (05/19/2024 9:28 AM BIOLOGICAL TECHNICIAN) Amphetamine, ur Not Detected CutOff 500ng/mL Comment: Interpretive Data - Amphetamines: ??Samples containing greater than 500 ng/mL d-methamphetamine ??or other cross-reacting amphetamine compounds are reported as positive. ??Amphetamine immunoassays are subject to significant false positive rates due to cross-reactivity of non-amphetamine drugs. Confirmatory testing required for definitive results. Current Interpretive Data was last reviewed 2023. Barbiturates, ur Not Detected CutOff 200ng/mL [facility] Comment: Interpretive Data - Barbiturates: ??Samples containing greater than 200 ng/mL secobarbital or other cross-reacting barbiturate compounds are reported as positive. ??False positive and false negative results are possible. Confirmatory testing required for definitive results. Current Interpretive Data was last reviewed 2023. Benzodiazepines, ur Not Detected CutOff 100ng/mL [facility] Comment: Interpretive Data - Benzodiazepines: ??Samples containing greater than 100 ng/mL nordiazepam or other cross-reacting compounds are reported as positive. False positive and false negative results are possible. Confirmatory testing required for definitive results. Current Interpretive Data was last reviewed 2023. Cannabinoids, ur Screen Positive, presumptive (A) CutOff 50 ng/mL [facility] Comment: Interpretive Data - Cannabinoids: ??Samples containing greater than 50 ng/mL delta-9 THC -COOH or other cross-reacting compounds are reported as positive. ??False positive and false negative results are possible. ??Confirmatory testing required for definitive results. Current Interpretive Data was last reviewed 2023. Cocaine, ur Not Detected CutOff 150ng/mL [facility] Comment: Interpretive Data - Cocaine: ??Samples containing greater than 150 ng/mL benzoylecgonine or other cross-reacting compounds are reported as positive. False positive and false negative results are possible. Confirmatory testing required for definitive results. Current Interpretive Data was last reviewed 2023. Fentanyl, Ur Not Detected CutOff 5 ng/mL [facility] Comment: Interpretive Data - Fentanyl: ?? Samples containing greater than 5 ng/mL norfentanyl, fentanyl, or other cross-reacting fentanyl compounds are reported as positive. False positive and false negative results are possible. Confirmatory testing required for definitive results. Current Interpretive Data was last reviewed 2023. Methadone, ur Not Detected CutOff 300ng/mL [facility] Comment: Interpretive Data - Methadone: ??Samples containing greater than 300 ng/mL d,l-methadone or other cross-reacting compounds are reported as positive. ??False positive and false negative results are possible. Confirmatory testing required for definitive results. Current Interpretive Data was last reviewed 2023. Opiates, ur Not Detected CutOff 300ng/mL [facility] Comment: Interpretive Data - Opiates: ??Samples containing greater than 300 ng/mL morphine or other cross-reacting compounds are reported as positive. ??False positive and false negative results are possible. Confirmatory testing required for definitive results. Current Interpretive Data was last reviewed 2023. Oxycodone, ur Not Detected CutOff 100ng/mL [facility] Comment: Interpretive Data - Oxycodone: ??Samples containing greater than 100 ng/mL oxycodone or other cross-reacting compounds are reported as ??positive. ??False positive and false negative results are possible. Confirmatory testing required for definitive results. Current Interpretive Data was last reviewed 2023. Phencyclidine, ur Not Detected CutOff 25 ng/mL [facility] Comment: Interpretive Data - Phencyclidine: ??Samples containing greater than 25 ng/mL phencyclidine or other cross-reacting compounds are reported as positive. ??False positive and false negative results are possible. Confirmatory testing required for definitive results. Current Interpretive Data was last reviewed 2023. Urine Creatinine 75 mg/dL [facility] Comment: Interpretive Data Urine Creatinine: < 10 mg/dL is extremely dilute = or > 10 but < 20 mg/dL is dilute = or > 20 mg/dL is normal Current Interpretive Data was last revised on 2017. Urine 05/19/2024 9:28 AM BIOLOGICAL TECHNICIAN 05/19/2024 10:13 AM BIOLOGICAL TECHNICIAN Narrative [facility] - 05/19/2024 10:44 AM BIOLOGICAL TECHNICIAN Drug of Abuse screening is performed by immunoassay for medical purposes only. ??This is not to be used for Pain Management purposes. ??If Detected, confirmation testing will be performed for Amphetamines, Cocaine, Fentanyl, Methadone, Opiates, Oxycodone or Phencyclidine. us Radha Saleh MD LAB URINE ORDERABLES Final Resu lt [facility] Department [place] [address] * eGFR (05/19/2024 4:58 AM BIOLOGICAL TECHNICIAN) eGFR >90 >=60 mL/min/1. 73 m2 Comment: [...] last reviewed 2021. Blood 05/19/2024 4:58 AM BIOLOGICAL TECHNICIAN 05/19/2024 6:25 AM BIOLOGICAL TECHNICIAN us Denise Gonzalez MD PhD LAB BLOOD ORDERABLES Final Result [facility] Department [place] [address] * Differential, auto (05/19/2024 4:58 AM BIOLOGICAL TECHNICIAN) Neutrophil abs 4.7 1.5 - 6.5 K/cumm Imm gran abs 0.0 0.0 - 0.1 K/cumm [facility] Lymphocyte abs 3.0 0.8 - 3.3 K/cumm [facility] Monocyte abs 0.7 0.2 - 0.8 K/cumm [facility] Eosinophil abs 0.3 0.0 - 0.5 K/cumm [facility] Basophil abs 0.1 0.0 - 0.1 K/cumm [facility] Neutrophil pct 53.4 % [facility] Comment: Interpretive Data Percent cell count reference ranges are not reported, since discordance with absolute values may lead to misinterpretation of CBC data. Current Interpretive Data was last revised on 2017. Imm gran pct 0.3 % [facility] Comment: Interpretive Data Percent cell count reference ranges are not reported, since discordance with absolute values may lead to misinterpretation of CBC data. Current Interpretive Data was last revised on 2017. Lymphocyte pct 33.7 % [facility] Comment: Interpretive Data Percent cell count reference ranges are not reported, since discordance with absolute values may lead to misinterpretation of CBC data. Current Interpretive Data was last revised on 2017. Monocyte pct 8.0 % [facility] Comment: Interpretive Data Percent cell count reference ranges are not reported, since discordance with absolute values may lead to misinterpretation of CBC data. Current Interpretive Data was last revised on 2017. Eosinophil pct 3.4 % [facility] Comment: Interpretive Data Percent cell count reference ranges are not reported, since discordance with absolute values may lead to misinterpretation of CBC data. Current Interpretive Data was last revised on 2017. Basophil pct 1.2 % [facility] Comment: Interpretive Data Percent cell count reference ranges are not reported, since discordance with absolute values may lead to misinterpretation of CBC data. Current Interpretive Data was last revised on 2017. Blood 05/19/2024 4:58 AM BIOLOGICAL TECHNICIAN 05/19/2024 6:25 AM BIOLOGICAL TECHNICIAN us Denise Gonzalez MD PhD LAB BLOOD ORDERABLES Final Result [facility] Department [place] [address] * (ABNORMAL) CBC with auto differential (05/19/2024 4:58 AM BIOLOGICAL TECHNICIAN) WBC 8.9 3.8 - 9.9 K/cumm Hgb 11.8(L) 13.0 - 17.5 g/dL [facility] Hct 35.3(L) 38.9 - 50.3 % [facility] Plt 348 150 - 400 K/cumm [facility] MPV 10.2 9.1 - 12.[address] [facility] RBC 3.86(L) 4.30 - 5.80 M/cumm [facility] MCV 91.5 81.3 - 96.[address] [facility] MCH 30.6 27.1 - 33.[address] [facility] MCHC 33.4 32.3 - 35.7 g/dL [facility] RDW CV 12.2 11.1 - 14.9 % [facility] RDW SD 40.7 35.7 - 48.[address] [facility] NRBC abs 0.00 0.00 - 0.01 K/cumm [facility] Blood 05/19/2024 4:58 AM BIOLOGICAL TECHNICIAN 05/19/2024 6:25 AM BIOLOGICAL TECHNICIAN Denise Gonzalez MD PhD LAB BLOOD ORDERABLES Final Result [facility] Department [place] [address] * (ABNORMAL) Comprehensive metabolic panel (05/19/2024 4:58 AM BIOLOGICAL TECHNICIAN) Sodium 140 135 - 145 mmol/L Potassium, pl 5.6(H) 3.3 - 4.9 mmol/L [facility] Chloride 102 97 - 110 mmol/L [facility] CO2 27 22 - 32 mmol/L [facility] Anion gap 11 2 - 15 mmol/L [facility] BUN 25 6 - 25 mg/dL [facility] Creatinine 0.93 0.80 - 1.30 mg/dL [facility] Glucose 107 70 - 199 mg/dL [facility] Comment: Interpretive Data Fasting glucose >/= 126 [...] 2022. Calcium 10.0 8.5 - 10.3 mg/dL [facility] Bilirubin, total <0.2 0.1 - 1.2 mg/dL [facility] Protein, pl 7.3 6.5 - 8.5 g/dL [facility] Albumin 4.4 3.5 - 5.0 g/dL [facility] Alk phos 63 40 - 130 Units/L [facility] ALT 71(H) 7 - 55 Units/L [facility] AST 54(H) 10 - 50 Units/L [facility] Blood 05/19/2024 4:58 AM BIOLOGICAL TECHNICIAN 05/19/2024 6:25 AM BIOLOGICAL TECHNICIAN Denise Gonzalez MD PhD LAB BLOOD ORDERABLES Final Result Performing Organization Address City/[facility]/ZIP Co de Phone Number KAMINI ACOSTA [facility] Department [place] [address] * eGFR (05/18/2024 4:54 AM BIOLOGICAL TECHNICIAN) [facility] eGFR >90 >=60 mL/min/1. 73 m2 Comment: [...] last reviewed 2021. Blood 05/18/2024 4:54 AM BIOLOGICAL TECHNICIAN 05/18/2024 5:45 AM BIOLOGICAL TECHNICIAN us Denise Gonzalez MD PhD LAB BLOOD ORDERABLES Final Result Performing Organization Address [facility]/ZIP Co de Phone Number KAMINI ACOSTA [facility] Department [place] [address] * (ABNORMAL) Differential, auto (05/18/2024 4:54 AM BIOLOGICAL TECHNICIAN) Neutrophil abs 2.5 1.5 - 6.5 K/cumm Imm gran abs 0.0 0.0 - 0.1 K/cumm [facility] Lymphocyte abs 3.6(H) 0.8 - 3.3 K/cumm [facility] Monocyte abs 0.5 0.2 - 0.8 K/cumm [facility] Eosinophil abs 0.3 0.0 - 0.5 K/cumm [facility] Basophil abs 0.1 0.0 - 0.1 K/cumm [facility] Neutrophil pct 36.3 % [facility] Comment: Interpretive Data Percent cell count reference ranges are not reported, since discordance with absolute values may lead to misinterpretation of CBC data. Current Interpretive Data was last revised on 2017. Imm gran pct 0.1 % [facility] Comment: Interpretive Data Percent cell count reference ranges are not reported, since discordance with absolute values may lead to misinterpretation of CBC data. Current Interpretive Data was last revised on 2017. Lymphocyte pct 51.6 % [facility] Comment: Interpretive Data Percent cell count reference ranges are not reported, since discordance with absolute values may lead to misinterpretation of CBC data. Current Interpretive Data was last revised on 2017. Monocyte pct 7.3 % [facility] Comment: Interpretive Data Percent cell count reference ranges are not reported, since discordance with absolute values may lead to misinterpretation of CBC data. Current Interpretive Data was last revised on 2017. Eosinophil pct 3.6 % [facility] Comment: Interpretive Data Percent cell count reference ranges are not reported, since discordance with absolute values may lead to misinterpretation of CBC data. Current Interpretive Data was last revised on 2017. Basophil pct 1.1 % [facility] Comment: Interpretive Data Percent cell count reference ranges are not reported, since discordance with absolute values may lead to misinterpretation of CBC data. Current Interpretive Data was last revised on 2017. Blood 05/18/2024 4:54 AM BIOLOGICAL TECHNICIAN 05/18/2024 5:49 AM BIOLOGICAL TECHNICIAN us Denise Gonzalez MD PhD LAB BLOOD ORDERABLES Final Result [facility] Department [place] [address] * CBC with auto differential (05/18/2024 4:54 AM BIOLOGICAL TECHNICIAN) [facility] WBC 7.0 3.8 - 9.9 K/cumm Hgb 13.5 13.0 - 17.5 g/dL [facility] Hct 40.9 38.9 - 50.3 % [facility] Plt 341 150 - 400 K/cumm [facility] MPV 9.9 9.1 - 12.[address] [facility] RBC 4.48 4.30 - 5.80 M/cumm [facility] MCV 91.3 81.3 - 96.[address] [facility] MCH 30.1 27.1 - 33.[address] [facility] MCHC 33.0 32.3 - 35.7 g/dL [facility] RDW CV 12.0 11.1 - 14.9 % [facility] RDW SD 40.5 35.7 - 48.[address] [facility] NRBC abs 0.00 0.00 - 0.01 K/cumm [facility] Blood 05/18/2024 4:54 AM BIOLOGICAL TECHNICIAN 05/18/2024 5:49 AM BIOLOGICAL TECHNICIAN Denise Gonzalez MD PhD LAB BLOOD ORDERABLES Final Result Performing Organization Address City/[facility]/ZIP Co de Phone Number [facility] Department [place] [address] * (ABNORMAL) Comprehensive metabolic panel (05/18/2024 4:54 AM BIOLOGICAL TECHNICIAN) [facility] Sodium 144 135 - 145 mmol/L Potassium, pl 4.9 3.3 - 4.9 mmol/L [facility] Chloride 104 97 - 110 mmol/L [facility] CO2 29 22 - 32 mmol/L [facility] Anion gap 11 2 - 15 mmol/L [facility] BUN 12 6 - 25 mg/dL [facility] Creatinine 0.84 0.80 - 1.30 mg/dL [facility] Glucose 95 70 - 199 mg/dL [facility] Comment: Interpretive Data Fasting glucose >/= 126 [...] 2022. Calcium 9.9 8.5 - 10.3 mg/dL [facility] Bilirubin, total <0.2 0.1 - 1.2 mg/dL [facility] Protein, pl 7.2 6.5 - 8.5 g/dL [facility] Albumin 4.3 3.5 - 5.0 g/dL [facility] Alk phos 57 40 - 130 Units/L [facility] ALT 61(H) 7 - 55 Units/L [facility] AST 59(H) 10 - 50 Units/L [facility] Blood 05/18/2024 4:54 AM BIOLOGICAL TECHNICIAN 05/18/2024 5:45 AM BIOLOGICAL TECHNICIAN us Denise Gonzalez MD PhD LAB BLOOD ORDERABLES Final Result [facility] Department [place] [address] * eGFR (05/17/2024 4:30 AM BIOLOGICAL TECHNICIAN) eGFR >90 >=60 mL/min/1. 73 m2 Comment: [...] last reviewed 2021. Blood 05/17/2024 4:30 AM BIOLOGICAL TECHNICIAN 05/17/2024 5:30 AM BIOLOGICAL TECHNICIAN us Denise Gonzalez MD PhD LAB BLOOD ORDERABLES Final Result [facility] Department [place] [address] * Differential, auto (05/17/2024 4:30 AM BIOLOGICAL TECHNICIAN) Pathologist [facility] Neutrophil abs 2.8 1.5 - 6.5 K/cumm Imm gran abs 0.0 0.0 - 0.1 K/cumm [facility] Lymphocyte abs 2.2 0.8 - 3.3 K/cumm [facility] Monocyte abs 0.4 0.2 - 0.8 K/cumm [facility] Eosinophil abs 0.3 0.0 - 0.5 K/cumm [facility] Basophil abs 0.1 0.0 - 0.1 K/cumm [facility] Neutrophil pct 49.1 % [facility] Comment: Interpretive Data Percent cell count reference ranges are not reported, since discordance with absolute values may lead to misinterpretation of CBC data. Current Interpretive Data was last revised on 2017. Imm gran pct 0.2 % [facility] Comment: Interpretive Data Percent cell count reference ranges are not reported, since discordance with absolute values may lead to misinterpretation of CBC data. Current Interpretive Data was last revised on 2017. Lymphocyte pct 38.9 % [facility] Comment: Interpretive Data Percent cell count reference ranges are not reported, since discordance with absolute values may lead to misinterpretation of CBC data. Current Interpretive Data was last revised on 2017. Monocyte pct 6.2 % [facility] Comment: Interpretive Data Percent cell count reference ranges are not reported, since discordance with absolute values may lead to misinterpretation of CBC data. Current Interpretive Data was last revised on 2017. Eosinophil pct 4.5 % [facility] Comment: Interpretive Data Percent cell count reference ranges are not reported, since discordance with absolute values may lead to misinterpretation of CBC data. Current Interpretive Data was last revised on 2017. Basophil pct 1.1 % [facility] Comment: Interpretive Data Percent cell count reference ranges are not reported, since discordance with absolute values may lead to misinterpretation of CBC data. Current Interpretive Data was last revised on 2017. Blood 05/17/2024 4:30 AM BIOLOGICAL TECHNICIAN 05/17/2024 5:33 AM BIOLOGICAL TECHNICIAN us Denise Gonzalez MD PhD LAB BLOOD ORDERABLES Final Result [facility] Department [place] [address] * (ABNORMAL) CBC with auto differential (05/17/2024 4:30 AM BIOLOGICAL TECHNICIAN) WBC 5.6 3.8 - 9.9 K/cumm Hgb 11.7(L) 13.0 - 17.5 g/dL [facility] Hct 34.4(L) 38.9 - 50.3 % [facility] Plt 309 150 - 400 K/cumm [facility] MPV 10.0 9.1 - 12.[address] [facility] RBC 3.90(L) 4.30 - 5.80 M/cumm [facility] MCV 88.2 81.3 - 96.[address] [facility] MCH 30.0 27.1 - 33.[address] [facility] MCHC 34.0 32.3 - 35.7 g/dL [facility] RDW CV 12.0 11.1 - 14.9 % [facility] RDW SD 38.7 35.7 - 48.[address] [facility] NRBC abs 0.00 0.00 - 0.01 K/cumm [facility] Blood 05/17/2024 4:30 AM BIOLOGICAL TECHNICIAN 05/17/2024 5:33 AM BIOLOGICAL TECHNICIAN us Denise Gonzalez MD PhD LAB BLOOD ORDERABLES Final Result [facility] Department [place] [address] * (ABNORMAL) Comprehensive metabolic panel (05/17/2024 4:30 AM BIOLOGICAL TECHNICIAN) Pathologist [facility] Sodium 142 135 - 145 mmol/L Potassium, pl 4.6 3.3 - 4.9 mmol/L [facility] Chloride 105 97 - 110 mmol/L [facility] CO2 30 22 - 32 mmol/L [facility] Anion gap 7 2 - 15 mmol/L [facility] BUN 15 6 - 25 mg/dL [facility] Creatinine 0.72(L) 0.80 - 1.30 mg/dL [facility] Glucose 117 70 - 199 mg/dL [facility] Comment: Interpretive Data Fasting glucose >/= 126 [...] 2022. Calcium 9.5 8.5 - 10.3 mg/dL [facility] Bilirubin, total <0.2 0.1 - 1.2 mg/dL [facility] Protein, pl 6.7 6.5 - 8.5 g/dL [facility] Albumin 3.9 3.5 - 5.0 g/dL [facility] Alk phos 55 40 - 130 Units/L [facility] ALT 33 7 - 55 Units/L [facility] AST 28 10 - 50 Units/L [facility] Blood 05/17/2024 4:30 AM BIOLOGICAL TECHNICIAN 05/17/2024 5:30 AM BIOLOGICAL TECHNICIAN us Denise Gonzalez MD PhD LAB BLOOD ORDERABLES Final Result [facility] Department [place] [address] * eGFR (05/16/2024 5:18 AM BIOLOGICAL TECHNICIAN) eGFR >90 >=60 mL/min/1. 73 m2 Comment: [...] last reviewed 2021. Blood 05/16/2024 5:18 AM BIOLOGICAL TECHNICIAN 05/16/2024 6:40 AM BIOLOGICAL TECHNICIAN us Denise Gonzalez MD PhD LAB BLOOD ORDERABLES Final Result [facility] Department [place] [address] * Differential, auto (05/16/2024 5:18 AM BIOLOGICAL TECHNICIAN) Neutrophil abs 2.7 1.5 - 6.5 K/cumm Imm gran abs 0.0 0.0 - 0.1 K/cumm [facility] Lymphocyte abs 2.6 0.8 - 3.3 K/cumm [facility] Monocyte abs 0.4 0.2 - 0.8 K/cumm [facility] Eosinophil abs 0.3 0.0 - 0.5 K/cumm [facility] Basophil abs 0.1 0.0 - 0.1 K/cumm [facility] Neutrophil pct 44.1 % [facility] Comment: Interpretive Data Percent cell count reference ranges are not reported, since discordance with absolute values may lead to misinterpretation of CBC data. Current Interpretive Data was last revised on 2017. Imm gran pct 0.3 % [facility] Comment: Interpretive Data Percent cell count reference ranges are not reported, since discordance with absolute values may lead to misinterpretation of CBC data. Current Interpretive Data was last revised on 2017. Lymphocyte pct 42.0 % [facility] Comment: Interpretive Data Percent cell count reference ranges are not reported, since discordance with absolute values may lead to misinterpretation of CBC data. Current Interpretive Data was last revised on 2017. Monocyte pct 7.2 % [facility] Comment: Interpretive Data Percent cell count reference ranges are not reported, since discordance with absolute values may lead to misinterpretation of CBC data. Current Interpretive Data was last revised on 2017. Eosinophil pct 5.4 % [facility] Comment: Interpretive Data Percent cell count reference ranges are not reported, since discordance with absolute values may lead to misinterpretation of CBC data. Current Interpretive Data was last revised on 2017. Basophil pct 1.0 % [facility] Comment: Interpretive Data Percent cell count reference ranges are not reported, since discordance with absolute values may lead to misinterpretation of CBC data. Current Interpretive Data was last revised on 2017. Blood 05/16/2024 5:18 AM BIOLOGICAL TECHNICIAN 05/16/2024 6:40 AM BIOLOGICAL TECHNICIAN us Denise Gonzalez MD PhD LAB BLOOD ORDERABLES Final Result [facility] Department [place] [address] * (ABNORMAL) CBC with auto differential (05/16/2024 5:18 AM BIOLOGICAL TECHNICIAN) WBC 6.2 3.8 - 9.9 K/cumm Hgb 11.1(L) 13.0 - 17.5 g/dL [facility] Hct 32.6(L) 38.9 - 50.3 % [facility] Plt 291 150 - 400 K/cumm [facility] MPV 10.0 9.1 - 12.[address] [facility] RBC 3.66(L) 4.30 - 5.80 M/cumm [facility] MCV 89.1 81.3 - 96.[address] [facility] MCH 30.3 27.1 - 33.[address] [facility] MCHC 34.0 32.3 - 35.7 g/dL [facility] RDW CV 11.9 11.1 - 14.9 % [facility] RDW SD 38.4 35.7 - 48.[address] [facility] NRBC abs 0.00 0.00 - 0.01 K/cumm [facility] Blood 05/16/2024 5:18 AM BIOLOGICAL TECHNICIAN 05/16/2024 6:40 AM BIOLOGICAL TECHNICIAN us Denise Gonzalez MD PhD LAB BLOOD ORDERABLES Final Result Performing Organization Address [facility] Co de Phone Number [facility] Department [place] [address] * Vancomycin level trough prior to 4th dose (05/16/2024 5:18 AM BIOLOGICAL TECHNICIAN) [facility] Vancomycin trough 15.0 10.0 - 20.0 mcg/mL Comment:Repeated and Verifie d Blood 05/16/2024 5:18 AM BIOLOGICAL TECHNICIAN 05/16/2024 6:40 AM BIOLOGICAL TECHNICIAN Narrative [facility] - 05/16/2024 7:32 AM BIOLOGICAL TECHNICIAN prior to 4th dose Malcolm Deras MD LAB BLOOD ORDERABLES Fin al Result Performing Organization Address [facility] de Phone Number [facility] Department [place] [address] * (ABNORMAL) Comprehensive metabolic panel (05/16/2024 5:18 AM BIOLOGICAL TECHNICIAN) [facility] Sodium 140 135 - 145 mmol/L Potassium, pl 4.3 3.3 - 4.9 mmol/L [facility] Chloride 106 97 - 110 mmol/L [facility] CO2 28 22 - 32 mmol/L [facility] Anion gap 6 2 - 15 mmol/L [facility] BUN 12 6 - 25 mg/dL [facility] Creatinine 0.70(L) 0.80 - 1.30 mg/dL [facility] Glucose 91 70 - 199 mg/dL [facility] Comment: Interpretive Data Fasting glucose >/= 126 [...] 2022. Calcium 9.2 8.5 - 10.3 mg/dL [facility] Bilirubin, total <0.2 0.1 - 1.2 mg/dL [facility] Protein, pl 6.4(L) 6.5 - 8.5 g/dL [facility] Albumin 3.7 3.5 - 5.0 g/dL [facility] Alk phos 53 40 - 130 Units/L [facility] ALT 26 7 - 55 Units/L [facility] AST 21 10 - 50 Units/L [facility] Blood 05/16/2024 5:18 AM BIOLOGICAL TECHNICIAN 05/16/2024 6:40 AM BIOLOGICAL TECHNICIAN us Denise Gonzalez MD PhD LAB BLOOD ORDERABLES Final Result [facility] Department [place] [address] * eGFR (05/15/2024 4:41 AM BIOLOGICAL TECHNICIAN) eGFR >90 >=60 mL/min/1. 73 m2 Comment: [...] last reviewed 2021. Blood 05/15/2024 4:41 AM BIOLOGICAL TECHNICIAN 05/15/2024 5:48 AM BIOLOGICAL TECHNICIAN Denise Gonzalez MD PhD LAB BLOOD ORDERABLES Final Result [facility] Department [place] [address] * Differential, auto (05/15/2024 4:41 AM BIOLOGICAL TECHNICIAN) Neutrophil abs 2.7 1.5 - 6.5 K/cumm Imm gran abs 0.0 0.0 - 0.1 K/cumm [facility] Lymphocyte abs 2.7 0.8 - 3.3 K/cumm [facility] Monocyte abs 0.6 0.2 - 0.8 K/cumm [facility] Eosinophil abs 0.5 0.0 - 0.5 K/cumm [facility] Basophil abs 0.1 0.0 - 0.1 K/cumm [facility] Neutrophil pct 41.3 % [facility] Comment: Interpretive Data Percent cell count reference ranges are not reported, since discordance with absolute values may lead to misinterpretation of CBC data. Current Interpretive Data was last revised on 2017. Imm gran pct 0.3 % [facility] Comment: Interpretive Data Percent cell count reference ranges are not reported, since discordance with absolute values may lead to misinterpretation of CBC data. Current Interpretive Data was last revised on 2017. Lymphocyte pct 41.3 % [facility] Comment: Interpretive Data Percent cell count reference ranges are not reported, since discordance with absolute values may lead to misinterpretation of CBC data. Current Interpretive Data was last revised on 2017. Monocyte pct 9.0 % [facility] Comment: Interpretive Data Percent cell count reference ranges are not reported, since discordance with absolute values may lead to misinterpretation of CBC data. Current Interpretive Data was last revised on 2017. Eosinophil pct 7.0 % [facility] Comment: Interpretive Data Percent cell count reference ranges are not reported, since discordance with absolute values may lead to misinterpretation of CBC data. Current Interpretive Data was last revised on 2017. Basophil pct 1.1 % [facility] Comment: Interpretive Data Percent cell count reference ranges are not reported, since discordance with absolute values may lead to misinterpretation of CBC data. Current Interpretive Data was last revised on 2017. Blood 05/15/2024 4:41 AM BIOLOGICAL TECHNICIAN 05/15/2024 5:49 AM BIOLOGICAL TECHNICIAN us Denise Gonzalez MD PhD LAB BLOOD ORDERABLES Final Result [facility] Department [place] [address] * (ABNORMAL) CBC with auto differential (05/15/2024 4:41 AM BIOLOGICAL TECHNICIAN) WBC 6.5 3.8 - 9.9 K/cumm Hgb 10.9(L) 13.0 - 17.5 g/dL [facility] Hct 31.7(L) 38.9 - 50.3 % [facility] Plt 310 150 - 400 K/cumm [facility] MPV 10.0 9.1 - 12.[address] [facility] RBC 3.60(L) 4.30 - 5.80 M/cumm [facility] MCV 88.1 81.3 - 96.[address] [facility] MCH 30.3 27.1 - 33.[address] [facility] [facility] MCHC 34.4 32.3 - 35.7 g/dL [facility] RDW CV 11.6 11.1 - 14.9 % [facility] RDW SD 37.6 35.7 - 48.[address] [facility] NRBC abs 0.00 0.00 - 0.01 K/cumm [facility] Blood 05/15/2024 4:41 AM BIOLOGICAL TECHNICIAN 05/15/2024 5:49 AM BIOLOGICAL TECHNICIAN us Denise Gonzalez MD PhD LAB BLOOD ORDERABLES Final Result [facility] Department [place] [address] * (ABNORMAL) Vancomycin level trough (05/15/2024 4:41 AM BIOLOGICAL TECHNICIAN) [facility] Vancomycin trough 9.7(L) 10.0 - 20.0 mcg/mL Comment:Reviewed Blood 05/15/2024 4:41 AM BIOLOGICAL TECHNICIAN 05/15/2024 5:49 AM BIOLOGICAL TECHNICIAN Karine Ulloa MD LAB BLOOD ORDERABLES Fin al Result Performing Organization Address [facility] Co de Phone Number [facility] Department [place] [address] * (ABNORMAL) Comprehensive metabolic panel (05/15/2024 4:41 AM BIOLOGICAL TECHNICIAN) [facility] Sodium 142 135 - 145 mmol/L Potassium, pl 4.3 3.3 - 4.9 mmol/L [facility] Chloride 107 97 - 110 mmol/L [facility] CO2 29 22 - 32 mmol/L [facility] Anion gap 6 2 - 15 mmol/L [facility] BUN 9 6 - 25 mg/dL [facility] Creatinine 0.68(L) 0.80 - 1.30 mg/dL [facility] Glucose 105 70 - 199 mg/dL [facility] Comment: Interpretive Data Fasting glucose >/= 126 [...] 2022. Calcium 9.0 8.5 - 10.3 mg/dL [facility] Bilirubin, total <0.2 0.1 - 1.2 mg/dL [facility] Protein, pl 6.0(L) 6.5 - 8.5 g/dL [facility] Albumin 3.4(L) 3.5 - 5.0 g/dL [facility] Alk phos 55 40 - 130 Units/L [facility] ALT 27 7 - 55 Units/L [facility] AST 23 10 - 50 Units/L [facility] Blood 05/15/2024 4:41 AM BIOLOGICAL TECHNICIAN 05/15/2024 5:48 AM BIOLOGICAL TECHNICIAN us Denise Gonzalez MD PhD LAB BLOOD ORDERABLES Final Result [facility] Department [place] [address] * Blood culture Blood (05/14/2024 11:29 PM BIOLOGICAL TECHNICIAN) Report Final Report: No growth Blood 05/14/2024 11:2 9 PM BIOLOGICAL TECHNICIAN 05/15/2024 12:50 AM BIOLOGICAL TECHNICIAN Narrative [facility] - 05/19/2024 7:00 AM BIOLOGICAL TECHNICIAN Collection->Peripheral 1. ?Blood cultures are incubated for [...] performance characteristics have been verified by the [facility] Microbiology Laboratory. For questions about this culture, contact the Microbiology Laboratory at [phone]. Interpretive data was last revised on 24. Karine Ulloa MD LAB MICROBIOLOGY - GENER AL ORDERABLES Final Result [facility] Department [place] [address] * Blood culture Blood (05/14/2024 11:29 PM BIOLOGICAL TECHNICIAN) Report Final Report: No growth Blood 05/14/2024 11:2 9 PM BIOLOGICAL TECHNICIAN 05/15/2024 12:50 AM BIOLOGICAL TECHNICIAN Narrative [facility] - 05/19/2024 7:00 AM BIOLOGICAL TECHNICIAN Collection->Peripheral 1. ?Blood cultures are incubated for [...] performance characteristics have been verified by the [facility]biology Laboratory. For questions about this culture, contact the Microbiology Laboratory at [phone]. Interpretive data was last revised on 24. Karine Ulloa MD LAB MICROBIOLOGY - GENER AL ORDERABLES Final Result Performing Organization Address [facility] Co de Phone Number [facility] Department [place] [address] * eGFR (05/14/2024 5:08 AM BIOLOGICAL TECHNICIAN) Pathologist [facility] eGFR >90 >=60 mL/min/1. 73 m2 Comment: [...] last reviewed 2021. Blood 05/14/2024 5:08 AM BIOLOGICAL TECHNICIAN 05/14/2024 6:48 AM BIOLOGICAL TECHNICIAN us Denise Gonzalez MD PhD LAB BLOOD ORDERABLES Final Result Performing Organization Address [facility] Co de Phone Number [facility] Department [place] [address] * Differential, auto (05/14/2024 5:08 AM BIOLOGICAL TECHNICIAN) Neutrophil abs 3.1 1.5 - 6.5 K/cumm Imm gran abs 0.0 0.0 - 0.1 K/cumm [facility] Lymphocyte abs 2.3 0.8 - 3.3 K/cumm [facility] Monocyte abs 0.7 0.2 - 0.8 K/cumm [facility] Eosinophil abs 0.4 0.0 - 0.5 K/cumm [facility] Basophil abs 0.1 0.0 - 0.1 K/cumm [facility] Neutrophil pct 47.2 % [facility] Comment: Interpretive Data Percent cell count reference ranges are not reported, since discordance with absolute values may lead to misinterpretation of CBC data. Current Interpretive Data was last revised on 2017. Imm gran pct 0.3 % [facility] Comment: Interpretive Data Percent cell count reference ranges are not reported, since discordance with absolute values may lead to misinterpretation of CBC data. Current Interpretive Data was last revised on 2017. Lymphocyte pct 34.6 % [facility] Comment: Interpretive Data Percent cell count reference ranges are not reported, since discordance with absolute values may lead to misinterpretation of CBC data. Current Interpretive Data was last revised on 2017. Monocyte pct 10.3 % [facility] Comment: Interpretive Data Percent cell count reference ranges are not reported, since discordance with absolute values may lead to misinterpretation of CBC data. Current Interpretive Data was last revised on 2017. Eosinophil pct 6.5 % [facility] Comment: Interpretive Data Percent cell count reference ranges are not reported, since discordance with absolute values may lead to misinterpretation of CBC data. Current Interpretive Data was last revised on 2017. Basophil pct 1.1 % [facility] Comment: Interpretive Data Percent cell count reference ranges are not reported, since discordance with absolute values may lead to misinterpretation of CBC data. Current Interpretive Data was last revised on 2017. Blood 05/14/2024 5:08 AM BIOLOGICAL TECHNICIAN 05/14/2024 6:47 AM BIOLOGICAL TECHNICIAN us Denise Gonzalez MD PhD LAB BLOOD ORDERABLES Final Result Performing Organization Address City/State/[facility] Co de Phone Number [facility] Department [place] [address] * (ABNORMAL) CBC with auto differential (05/14/2024 5:08 AM BIOLOGICAL TECHNICIAN) [facility] WBC 6.6 3.8 - 9.9 K/cumm Hgb 12.5(L) 13.0 - 17.5 g/dL [facility] Hct 36.3(L) 38.9 - 50.3 % [facility] Plt 340 150 - 400 K/cumm [facility] MPV 9.9 9.1 - 12.[address] [facility] RBC 4.09(L) 4.30 - 5.80 M/cumm [facility] MCV 88.8 81.3 - 96.[address] [facility] MCH 30.6 27.1 - 33.[address] [facility] MCHC 34.4 32.3 - 35.7 g/dL [facility] RDW CV 11.9 11.1 - 14.9 % [facility] RDW SD 37.9 35.7 - 48.[address] [facility] NRBC abs 0.00 0.00 - 0.01 K/cumm [facility] Blood 05/14/2024 5:08 AM BIOLOGICAL TECHNICIAN 05/14/2024 6:47 AM BIOLOGICAL TECHNICIAN us Denise Gonzalez MD PhD LAB BLOOD ORDERABLES Final Result Performing Organization Address [facility] Co de Phone Number [facility] Department [place] [address] * Comprehensive metabolic panel (05/14/2024 5:08 AM BIOLOGICAL TECHNICIAN) [facility] Sodium 142 135 - 145 mmol/L Potassium, pl 4.1 3.3 - 4.9 mmol/L [facility] Chloride 108 97 - 110 mmol/L [facility] CO2 27 22 - 32 mmol/L [facility] Anion gap 7 2 - 15 mmol/L [facility] BUN 12 6 - 25 mg/dL [facility] Creatinine 0.80 0.80 - 1.30 mg/dL [facility] Glucose 93 70 - 199 mg/dL [facility] Comment: Interpretive Data Fasting glucose >/= 126 [...] 2022. Calcium 9.5 8.5 - 10.3 mg/dL [facility] Bilirubin, total <0.2 0.1 - 1.2 mg/dL [facility] Comment:Reviewed Protein, pl 6.8 6.5 - 8.5 g/dL [facility] Albumin 4.0 3.5 - 5.0 g/dL [facility] Alk phos 64 40 - 130 Units/L [facility] ALT 34 7 - 55 Units/L [facility] AST 24 10 - 50 Units/L [facility] Blood 05/14/2024 5:08 AM BIOLOGICAL TECHNICIAN 05/14/2024 6:47 AM BIOLOGICAL TECHNICIAN us Denise Gonzalez MD PhD LAB BLOOD ORDERABLES Final Result [facility] Department [place] [address] * (ABNORMAL) Vancomycin level trough (05/13/2024 4:15 PM BIOLOGICAL TECHNICIAN) Pathologist [facility] Vancomycin trough 8.3(L) 10.0 - 20.0 mcg/mL Blood 05/13/2024 4:15 PM BIOLOGICAL TECHNICIAN 05/13/2024 5:12 PM BIOLOGICAL TECHNICIAN us Karine Ulloa MD LAB BLOOD ORDERABLES Fin al Result [facility] Department [place] [address] * eGFR (05/13/2024 6:14 AM BIOLOGICAL TECHNICIAN) [facility] eGFR >90 >=60 mL/min/1. 73 m2 Comment: [...] last reviewed 2021. Blood 05/13/2024 6:14 AM BIOLOGICAL TECHNICIAN 05/13/2024 7:50 AM BIOLOGICAL TECHNICIAN us Denise Gonzalez MD PhD LAB BLOOD ORDERABLES Final Result [facility] Department [place] [address] * Differential, auto (05/13/2024 6:14 AM BIOLOGICAL TECHNICIAN) [facility] Neutrophil abs 5.3 1.5 - 6.5 K/cumm Imm gran abs 0.0 0.0 - 0.1 K/cumm [facility] Lymphocyte abs 1.5 0.8 - 3.3 K/cumm [facility] Monocyte abs 0.7 0.2 - 0.8 K/cumm [facility] Eosinophil abs 0.3 0.0 - 0.5 K/cumm [facility] Basophil abs 0.1 0.0 - 0.1 K/cumm [facility] Neutrophil pct 67.1 % [facility] Comment: Interpretive Data Percent cell count reference ranges are not reported, since discordance with absolute values may lead to misinterpretation of CBC data. Current Interpretive Data was last revised on 2017. Imm gran pct 0.4 % [facility] Comment: Interpretive Data Percent cell count reference ranges are not reported, since discordance with absolute values may lead to misinterpretation of CBC data. Current Interpretive Data was last revised on 2017. Lymphocyte pct 18.9 % [facility] Comment: Interpretive Data Percent cell count reference ranges are not reported, since discordance with absolute values may lead to misinterpretation of CBC data. Current Interpretive Data was last revised on 2017. Monocyte pct 8.5 % [facility] Comment: Interpretive Data Percent cell count reference ranges are not reported, since discordance with absolute values may lead to misinterpretation of CBC data. Current Interpretive Data was last revised on 2017. Eosinophil pct 4.2 % [facility] Comment: Interpretive Data Percent cell count reference ranges are not reported, since discordance with absolute values may lead to misinterpretation of CBC data. Current Interpretive Data was last revised on 2017. Basophil pct 0.9 % [facility] Comment: Interpretive Data Percent cell count reference ranges are not reported, since discordance with absolute values may lead to misinterpretation of CBC data. Current Interpretive Data was last revised on 2017. Blood 05/13/2024 6:14 AM BIOLOGICAL TECHNICIAN 05/13/2024 6:45 AM BIOLOGICAL TECHNICIAN us Denise Gonzalez MD PhD LAB BLOOD ORDERABLES Final Result [facility] Department [place] [address] * (ABNORMAL) CBC with auto differential (05/13/2024 6:14 AM BIOLOGICAL TECHNICIAN) [facility] WBC 7.9 3.8 - 9.9 K/cumm Hgb 11.7(L) 13.0 - 17.5 g/dL [facility] Hct 34.4(L) 38.9 - 50.3 % [facility] Plt 292 150 - 400 K/cumm [facility] MPV 9.5 9.1 - 12.[address] [facility] RBC 3.92(L) 4.30 - 5.80 M/cumm [facility] MCV 87.8 81.3 - 96.[address] [facility] MCH 29.8 27.1 - 33.[address] [facility] MCHC 34.0 32.3 - 35.7 g/dL [facility] RDW CV 11.7 11.1 - 14.9 % [facility] RDW SD 37.2 35.7 - 48.[address] [facility] NRBC abs 0.00 0.00 - 0.01 K/cumm [facility] Blood 05/13/2024 6:14 AM BIOLOGICAL TECHNICIAN 05/13/2024 6:45 AM BIOLOGICAL TECHNICIAN us Denise Gonzalez MD PhD LAB BLOOD ORDERABLES Final Result [facility] Department [place] [address] * Valproic acid level, total (05/13/2024 6:14 AM BIOLOGICAL TECHNICIAN) [facility] Valproic Acid 55.0 50.0 - 100.0 mcg/mL Comment: Interpretive Data Therapeutic or toxic effects of anticonvulsant drugs may occur at different concentrations in different patients and the correlation between dose and clinical effect must be evaluated individually. Current interpretative data was last revised on 13. Blood 05/13/2024 6:14 AM BIOLOGICAL TECHNICIAN 05/13/2024 6:45 AM BIOLOGICAL TECHNICIAN Yaritza Hall LAB BLOOD ORDERABLES Final Result Performing Organization Address City/[facility] Co de Phone Number [facility] [place] [address] * (ABNORMAL) Carbamazepine level, total (05/13/2024 6:14 AM BIOLOGICAL TECHNICIAN) Carbamazepine <3.0(L) 4.0 - 12.0 mcg/mL Comment: Interpretive Data Therapeutic or Toxic effect of anticonvulsant drugs may occur at different concentrations in different patients and the correlation between dose and clinical effect must be evaluated individually. Current interpretive data was last revised on 13. Blood 05/13/2024 6:14 AM BIOLOGICAL TECHNICIAN 05/13/2024 6:45 AM BIOLOGICAL TECHNICIAN Yaritza Hlal LAB BLOOD ORDERABLES Final Result Performing Organization Address [facility] Co de Phone Number [facility] Department [place] [address] * (ABNORMAL) Comprehensive metabolic panel (05/13/2024 6:14 AM BIOLOGICAL TECHNICIAN) Pathologist [facility] Sodium 141 135 - 145 mmol/L Potassium, pl 3.8 3.3 - 4.9 mmol/L [facility] Chloride 107 97 - 110 mmol/L [facility] CO2 26 22 - 32 mmol/L [facility] Anion gap 8 2 - 15 mmol/L [facility] BUN 12 6 - 25 mg/dL [facility] Creatinine 0.70(L) 0.80 - 1.30 mg/dL [facility] Glucose 103 70 - 199 mg/dL [facility] Comment: Interpretive Data Fasting glucose >/= 126 [...] 2022. Calcium 8.9 8.5 - 10.3 mg/dL [facility] Bilirubin, total 0.2 0.1 - 1.2 mg/dL [facility] Protein, pl 6.2(L) 6.5 - 8.5 g/dL [facility] Albumin 3.5 3.5 - 5.0 g/dL [facility] Alk phos 58 40 - 130 Units/L [facility] ALT 34 7 - 55 Units/L [facility] AST 28 10 - 50 Units/L [facility] Blood 05/13/2024 6:14 AM BIOLOGICAL TECHNICIAN 05/13/2024 6:51 AM BIOLOGICAL TECHNICIAN Denise Gonzalez MD PhD LAB BLOOD ORDERABLES Final Result Performing Organization Address City/[facility]/ZIP Co de Phone Number [facility] Department [place] [address] * Check Sample (05/12/2024 12:27 PM BIOLOGICAL TECHNICIAN) ABO Rh B Negative [facility] OTHER 05/12/2024 12:2 7 PM BIOLOGICAL TECHNICIAN 05/12/2024 12:50 PM BIOLOGICAL TECHNICIAN Cheryl Saldana MD PhD LAB BLOOD ORDERABLES Fi nal Result Performing Organization Address [facility] Co de Phone Number [facility] Department [place] [address] [facility] * (ABNORMAL) Aerobic and anaerobic culture and gram stain Abscess Finger, index, left (05/12/2024 12:27 PM BIOLOGICAL TECHNICIAN) Direct Specimen Exam Stain: Rare polymorphonuclear leukocytes seen. Rare Gram Positive Cocci Report Final Report: Few Staphylococcus aureus Methicillin resistant (MRSA) by penicillin binding protein 2a (PBP2a) testing. Few Streptococcus pyogenes (Group A Streptococci) Streptococcus pyogenes is uniformly susceptible to beta-lactam antibiotics and vancomycin. ??Routine susceptibility testing is not performed. (.) [facility] Organism STAPHYLOCOCCUS AUREUS [facility] Organism STREPTOCOCCUS PYOGENES (GROUP A STREPTOCOCCI) [facility] Abscess (Finger, index, left) 05/12/2024 12:27 PM BIOLOGICAL TECHNICIAN 05/12/2024 12:44 PM BIOLOGICAL TECHNICIAN Narrative [facility] - 05/15/2024 1:25 PM BIOLOGICAL TECHNICIAN Specimen received on an ESwab. Testing performed by [facility] Microbiology Laboratory ([phone]) Specimens submitted from normally sterile body sites [...] INTERPRETATION Resistant Staphylococcus aureus Ceftriaxone INTERPRETATION Resistant Cheryl Saldana MD PhD LAB MICROBIOLOGY - [facility] ORDERABLES Final Result [facility] [place] [address] * Surgical pathology (05/12/2024 12:00 PM BIOLOGICAL TECHNICIAN) Tissue (Amputation non-tramatic) 05/12/2024 12:00 PM BIOLOGICAL TECHNICIAN 05/12/2024 4:45 PM BIOLOGICAL TECHNICIAN Narrative PATHOLOGY [facility] - 05/19/2024 12:00 PM BIOLOGICAL TECHNICIAN EPIC results best viewed via link to PDF [facility] Merlene [facility] Laboratory [place] [address] Note to Patients: This report may contain [...] Gender: ??M : ??1985 (Age: 38) Address: ??[facility], [place], [place] ??[address] Hospital #: ??[id number] Taken:05/12/2024 Received:05/12/2024 Reported: 05/19/2024 Patient Type: [facility] Inpatient ?? Service: Medical Location: [place] [address] Physician(s): ??Chen Gar M.D. MD Cheryl Sue [...] bone. ??See attached photographs. ??Labeled A1 - inbound customer service representative open wound to black- inked skin and soft tissue margin; A2 - inbound customer service representative bone underlying open wound, submitted following acid decalcification. ??Jar 3. ? dxb/05/15/2024 15:52 PA(s): Montrell Sanchez Aruna, YUSEF([facility])CM By this signature, I attest that the above diagnosis is based upon my personal examination of the slides(and/or other material). Addenda/Procedures The performance characteristics of some immunohistochemical stains, fluorescence in-situ hybridization tests and immunophenotyping by flow cytometry cited in this report (if any) were determined by the Surgical Pathology and Flow Cytometry Departments at [facility] as part of an ongoing construction quality control manager program and in compliance with federally mandated [...] Surgical Pathology and Flow Cytometry Departments of [facility]. ??It has not been cleared or approved by the U. S. Food and Drug Administration. IMAGES AND SCANNED DOCUMENTS, IF INCLUDED, ONLY VIEWABLE IN PDF VERSION OF REPORT us Cheryl Saldana MD PhD LAB PATHOLOGY ORDERABLE S Final Result Performing Organization Address [facility]/ZIP Co de Phone Number PATHOLOGY [facility] 3rd Floor [place], [place] [phone] * Type and screen (05/12/2024 9:30 AM BIOLOGICAL TECHNICIAN) Song, indirect Negative ABO Rh B Negative [facility] Blood 05/12/2024 9:30 AM BIOLOGICAL TECHNICIAN 05/12/2024 10:07 AM BIOLOGICAL TECHNICIAN Narrative [facility] - 05/12/2024 11:00 AM BIOLOGICAL TECHNICIAN Has the patient had Daratumumab or Isatuximab in the past 6 months?->Unknown Miguel Krishnamurthy MD LAB BLOOD BANK TEST ORDERABLES Final Result Performing Organization Address [facility] de Phone Number [facility] Department [place] [address] * XR Hand Left 3 or More Views (05/12/2024 6:27 AM BIOLOGICAL TECHNICIAN) Anatomical Region Laterality Modality Upper Extremities, Hand Left Computed Radiography 05/12/2024 7:27 AM BIOLOGICAL TECHNICIAN Impressions 05/12/2024 7:54 AM BIOLOGICAL TECHNICIAN There is diffuse soft tissue swelling about [...] Olvera M.D., Ph.D Narrative 05/12/2024 7:54 AM BIOLOGICAL TECHNICIAN EXAMINATION: XR HAND LEFT 3 OR MORE [...] Shar Olvera M.D., Ph.D Monroe Martínez MD IMG XR PROCEDURES Flaca l Result * eGFR (05/12/2024 6:05 AM BIOLOGICAL TECHNICIAN) eGFR >90 >=60 mL/min/1. 73 m2 Comment: [...] data was last reviewed 2021. Blood 05/12/2024 6:0 5 AM BIOLOGICAL TECHNICIAN 05/12/2024 6:16 AM BIOLOGICAL TECHNICIAN us Cole Epperson MD LAB BLOOD ORDERABLES F inal Result [facility] Department [place] [address] * (ABNORMAL) Differential, auto (05/12/2024 6:05 AM BIOLOGICAL TECHNICIAN) Neutrophil abs 6.5 1.5 - 6.5 K/cumm Imm gran abs 0.0 0.0 - 0.1 K/cumm [facility] Lymphocyte abs 1.5 0.8 - 3.3 K/cumm [facility] Monocyte abs 0.9(H) 0.2 - 0.8 K/cumm [facility] Eosinophil abs 0.2 0.0 - 0.5 K/cumm [facility] Basophil abs 0.1 0.0 - 0.1 K/cumm [facility] Neutrophil pct 71.5 % [facility] Comment: Interpretive Data Percent cell count reference ranges are not reported, since discordance with absolute values may lead to misinterpretation of CBC data. Current Interpretive Data was last revised on 2017. Imm gran pct 0.2 % [facility] Comment: Interpretive Data Percent cell count reference ranges are not reported, since discordance with absolute values may lead to misinterpretation of CBC data. Current Interpretive Data was last revised on 2017. Lymphocyte pct 16.0 % [facility] Comment: Interpretive Data Percent cell count reference ranges are not reported, since discordance with absolute values may lead to misinterpretation of CBC data. Current Interpretive Data was last revised on 2017. Monocyte pct 9.8 % [facility] Comment: Interpretive Data Percent cell count reference ranges are not reported, since discordance with absolute values may lead to misinterpretation of CBC data. Current Interpretive Data was last revised on 2017. Eosinophil pct 1.9 % [facility] Comment: Interpretive Data Percent cell count reference ranges are not reported, since discordance with absolute values may lead to misinterpretation of CBC data. Current Interpretive Data was last revised on 2017. Basophil pct 0.6 % [facility] Comment: Interpretive Data Percent cell count reference ranges are not reported, since discordance with absolute values may lead to misinterpretation of CBC data. Current Interpretive Data was last revised on 2017. Blood 05/12/2024 6:05 AM BIOLOGICAL TECHNICIAN 05/12/2024 6:16 AM BIOLOGICAL TECHNICIAN us Cole Epperson MD LAB BLOOD ORDERABLES F inal Result [facility] Department [place] [address] * (ABNORMAL) CBC with auto differential (05/12/2024 6:05 AM BIOLOGICAL TECHNICIAN) WBC 9.1 3.8 - 9.9 K/cumm Hgb 12.7(L) 13.0 - 17.5 g/dL [facility] Hct 36.9(L) 38.9 - 50.3 % [facility] Plt 310 150 - 400 K/cumm [facility] MPV 9.0(L) 9.1 - 12.[address] [facility] RBC 4.26(L) 4.30 - 5.80 M/cumm [facility] MCV 86.6 81.3 - 96.[address] [facility] MCH 29.8 27.1 - 33.[address] [facility] MCHC 34.4 32.3 - 35.7 g/dL [facility] RDW CV 11.9 11.1 - 14.9 % [facility] RDW SD 38.2 35.7 - 48.[address] [facility] NRBC abs 0.00 0.00 - 0.01 K/cumm [facility] Blood 05/12/2024 6:05 AM BIOLOGICAL TECHNICIAN 05/12/2024 6:16 AM BIOLOGICAL TECHNICIAN us Cole Epperson MD LAB BLOOD ORDERABLES F inal Result [facility] Department [place] [address] * (ABNORMAL) Blood culture Blood Peripheral (05/12/2024 6:05 AM BIOLOGICAL TECHNICIAN) Pathologist [facility] Direct Specimen Exam Molecular Analysis: Staphylococcus species detected by the [facility] BCID-GP panel. Single positive culture may represent contamination. This is most suggestive of a coagulase-negative Staphylococcus species. Please refer to final culture-based result for confirmation. This test does not exclude the possibility of a mixed bacterial infection. Notification of: Staphylococcus species called to and read back by: Radha Saleh MD ([phone]) on 05/14/2024 01:38:13 by: Mikey Hernandez MLS Direct Specimen Exam Stain: Gram Positive Cocci in clusters Time to culture positivity (aerobic media): 40.7 hours Notification of: Gram Positive Cocci in clusters called to and read back by: Pablito Peralta MD PhD ([phone]) on 05/13/2024 23:55:17 by: Mikey Hernandez MLS [facility] Report Final Report: Staphylococcus pettenkoferi Single blood culture positive for this microorganism. ??Isolate is a possible contaminant. If a similar isolate is recovered from a second blood culture collected within 3 days of this culture, both will be evaluated and, if determined to be the same species, antimicrobial susceptibility testing will be performed. (.) [facility] Organism STAPHYLOCOCCUS PETTENKOFERI [facility] Blood (Peripheral) 05/12/2024 6:05 AM BIOLOGICAL TECHNICIAN 05/12/2024 6:26 AM BIOLOGICAL TECHNICIAN Narrative [facility] - 05/17/2024 7:30 AM BIOLOGICAL TECHNICIAN From a different site than #1. Draw [...] performance characteristics have been verified by the [facility] Microbiology Laboratory. For questions about this culture, contact the Microbiology Laboratory at [phone]. Interpretive data was last revised on 24. us Cole Epperson MD LAB MICROBIOLOGY - GEN ERAL ORDERABLES Final Result [facility] Department [place] [address] * Blood culture Blood Peripheral (05/12/2024 6:05 AM BIOLOGICAL TECHNICIAN) Report Final Report: No growth Blood (Peripheral) 05/12/2024 6:05 AM BIOLOGICAL TECHNICIAN 05/12/2024 6:26 AM BIOLOGICAL TECHNICIAN Narrative [facility] - 05/16/2024 7:00 AM BIOLOGICAL TECHNICIAN Draw Blood cultures before administration of Antibiotics [...] performance characteristics have been verified by the [facility]biology [facility]. For questions about this culture, contact the Microbiology Laboratory at [phone]. Interpretive data was last revised on 24. Cole Epperson MD LAB MICROBIOLOGY - GEN ERAL ORDERABLES Final Result Performing Organization Address City/[facility]/ZIP Co de Phone Number [facility] Department [place] [address] * (ABNORMAL) Erythrocyte sedimentation rate (05/12/2024 6:05 AM BIOLOGICAL TECHNICIAN) Erythrocyte sedimentation rate 16(H) 1 - 15 mm/hr Blood 05/12/2024 6:05 AM BIOLOGICAL TECHNICIAN 05/12/2024 6:16 AM BIOLOGICAL TECHNICIAN Result [facility] Cole Epperson MD LAB BLOOD ORDERABLES F inal Result [facility] Department [place] [address] * CRP (acute phase) (05/12/2024 6:05 AM BIOLOGICAL TECHNICIAN) CRP 9.9 <=10.0 mg/L Blood 05/12/2024 6:05 AM BIOLOGICAL TECHNICIAN 05/12/2024 6:16 AM BIOLOGICAL TECHNICIAN Cole Epperson MD LAB BLOOD ORDERABLES F inal Result Performing Organization Address City/[facility]/ZIP Co de Phone Number [facility] Department [place] [address] * Comprehensive metabolic panel (05/12/2024 6:05 AM BIOLOGICAL TECHNICIAN) Sodium 138 135 - 145 mmol/L Potassium, pl 3.8 3.3 - 4.9 mmol/L [facility] Chloride 101 97 - 110 mmol/L [facility] CO2 27 22 - 32 mmol/L [facility] Anion gap 10 2 - 15 mmol/L [facility] BUN 16 6 - 25 mg/dL [facility] Creatinine 0.90 0.80 - 1.30 mg/dL [facility] Glucose 93 70 - 199 mg/dL [facility] Comment: Interpretive Data Fasting glucose >/= 126 [...] 2022. Calcium 9.7 8.5 - 10.3 mg/dL [facility] Bilirubin, total 0.3 0.1 - 1.2 mg/dL [facility] Protein, pl 7.2 6.5 - 8.5 g/dL [facility] Albumin 4.3 3.5 - 5.0 g/dL [facility] Alk phos 67 40 - 130 Units/L [facility] ALT 40 7 - 55 Units/L [facility] AST 40 10 - 50 Units/L [facility] Blood 05/12/2024 6:05 AM BIOLOGICAL TECHNICIAN 05/12/2024 6:16 AM BIOLOGICAL TECHNICIAN us Cole Epperson MD LAB BLOOD ORDERABLES F inal Result Performing Organization Address [facility]/ZIP Co de Phone Number [facility] Department [place] [address] * XR Finger 2nd Index Left (04/30/2024 2:29 PM BIOLOGICAL TECHNICIAN) Anatomical Region Laterality Modality Upper Extremities, Hand, Fingers Left Computed Radiography 04/30/2024 3:04 PM BIOLOGICAL TECHNICIAN Narrative 04/30/2024 3:05 PM BIOLOGICAL TECHNICIAN EXAM DESCRIPTION: XR FINGER 2ND INDEX LEFT [...] PM T: ??04/30/2024 3:05 PM Report ID: [id number] Reading Location: ??[id number] Procedure Note Wilver Morales MD - 04/30/2024 [...] by Wilver Morales M.D. JR: Report ID: [id number] Reading Location: [place] [address] Peter Marshall MD IMG XR PROCEDURES Final Resu lt * Hepatitis panel, acute (09/27/2019 1:01 PM CDT) Hep A IgM Nonreactive Nonreactive [facility] Comment: Interpretive Data: If Hep A IgM Ab is reported as Equivocal, a new sample should be drawn in two weeks for testing. Current interpretive data was last revised on 19. Testing performed by: [address] [address] Hep B core IgM Nonreactive Nonreactive [facility] Comment: Interpretive Data If HepB Core IgM Ab is reported as Equivocal, a new sample should be drawn in two weeks for testing. Current interpretive data was last revised on 19. Testing performed by: [facility], [address] [place] [address]., [address] Hep C Ab Nonreactive Nonreactive [facility] ([place] Comment: Interpretive Data Nonreactive: Antibodies to [...] last revised on 2019. 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 Source: [facility]. Last positive 05/05/24 Madeleine Kirby RN 05/04/2024 05/12/2024 Insurance [facility] Advance Directives For more information, please contact: [phone] * Full Code (Latest Code Status on File) Date Activated Date Inactivated Comments 05/26/2024 11:46 AM 05/28/2024 7:35 PM * Full Code Date Activated Date Inactivated Comments 05/12/2024 8:40 PM 05/19/2024 8:19 PM Care Teams [employer] Relationship Specialty Start Date End Date No, Physician PCP - General 06/07/24 Ashley Woodward MD Internal Medicine 06/07/24 Ashley Woodward MD 08/06/23
[2024-07-04 17:09] VITALS: BP 124/70; PULSE 74; RESP 20; TEMP 36.4; O2SAT 99
--- NOTE | 2024-07-04 20:40 | PC.NURSE ---
pt refusing to get up and go to room. security called.
[2024-07-04 21:12] VITALS: BP 116/72; PULSE 60; RESP 15; O2SAT 99
--- NOTE | 2024-07-04 21:23 | ECG_ITS ---
Test Date: 2024-07-04 23:41:25 Measurements Intervals Maynard Rate: 57 P: 75 MO: 153 QRS: 79 QRSD: 92 T: 70 QT: 410 QTc: 402 Interpretive Statements SINUS BRADYCARDIA ST ELEVATION, PROBABLY EARLY REPOLARIZATION [ST ELEVATION WITH NORMALLY INFLECTED T WAVE] No previous ECG available for comparison Electronically Signed On 07-05-2024 15:55:42 [facility] by Khushbu Tyler M.D.
--- OUTSIDE RECORDS SUMMARY | 2024-07-04 21:23 | XMS_ITS | Clinical Summary ---
Author Organization [facility] Address [address] [place] [address] Care Team Providers Care Claims Processor Name Role Phone None, Physician Primary Care Provider Unavailabl e Source Comments [facility],non-owned Affiliates and Associated Physician Practices is amultiple site organization consisting of ambulatory clinics and hospital sitesin [place], [place], [place] and [place]. This disclosure is being madepursuant to the Care Everywhere program and may not contain all information available regarding this patient. Last updated 18.[facility] Allergies Active Allergy Reactions Criticality Noted Date [...] Department Care Team Description 06/27/2024 3:23 AM [facility] - 06/27/2024 12:20 PM [facility] Emergency [facility] [address] [place] [phone] Shama Hutchins MD Traumatic injury of head, initial encounter (Primary Dx); Laceration of scalp, initial encounter; Seizure disorder (HCC); S/P coil embolization of cerebral aneurysm Discharge Disposition: Home or Self Care 06/27/2024 Travel 06/21/2024 10:46 PM COMPUTER TESTER - 06/21/2024 11:30 PM [facility] Emergency ER at [address] [address] Discharge Disposition: Left Against Medical Advice/Discontinued Care 06/20/2024 2:16 AM COMPUTER TESTER - 06/20/2024 5:44 AM [facility] Emergency [facility] [address] [place] [phone] Main Santos MD Left hand pain (Primary Dx) Discharge Disposition: Home or Self Care 06/20/2024 Travel 06/18/2024 12:50 AM [facility] - 06/18/2024 1:23 AM [facility] Emergency ER at [address] [address] Sarabjit León MD Discharge Disposition: ED Dismiss - Never Arrived 06/17/2024 9:35 AM COMPUTER TESTER - 06/17/2024 12:46 PM COMPUTER TESTER Emergency ER at [address] [address] James Ogden MD Acute alcoholic intoxication without complication (HCC) (Primary Dx) Discharge Disposition: Left Against Medical Advice/Discontinued Care 06/17/2024 - 06/18/2024 12:41 AM COMPUTER TESTER Emergency ER at [address] [address] 06/16/2024 12:34 PM COMPUTER TESTER - 06/16/2024 3:34 PM COMPUTER TESTER Emergency ER at [address] [address] Nelson Bruce DO Housing instability; Schizoaffective disorder, unspecified type (HCC) Discharge Disposition: Home or Self Care 06/16/2024 Travel 06/15/2024 8:17 AM COMPUTER TESTER - 06/15/2024 9:49 AM COMPUTER TESTER Emergency ER at [address] [address] Shravan Campoverde MD Housing instability Discharge Disposition: Home or Self Care 06/15/2024 12:11 AM COMPUTER TESTER - 06/15/2024 2:10 AM COMPUTER TESTER Emergency ER at [address] [address] Amber Macdonald MD Hodges, Harlan D, MD Left hand pain Discharge Disposition: Home or Self Care 06/14/2024 4:06 PM COMPUTER TESTER - 06/14/2024 5:12 PM COMPUTER TESTER Emergency ER at [address] [address] Nelson Bruce DO [place] Discharge Disposition: Home or Self Care 06/14/2024 Travel 06/13/2024 12:12 PM COMPUTER TESTER - 06/13/2024 1:29 PM [facility] Emergency [facility] [address] [place] [phone] Toribio Ayers MD Homelessness (Primary Dx); Open wound of left hand without foreign body, unspecified wound type, initial encounter Discharge Disposition: Home or Self Care 06/13/2024 3:30 AM COMPUTER TESTER - 06/13/2024 4:33 AM [facility] Emergency [facility] [address] [place] [phone] Shahid Patterson MD Homelessness Discharge Disposition: Home or Self Care 06/13/2024 Travel 06/12/2024 10:33 AM COMPUTER TESTER - 06/12/2024 1:07 PM [facility] Emergency [facility] [address] [place] [phone] Toribio Ayers MD Cold exposure, initial encounter; Hungry, initial encounter; Homeless Discharge Disposition: Home or Self Care 06/11/2024 10:34 AM COMPUTER TESTER - 06/11/2024 12:27 PM [facility] Emergency [facility] [address] [place] [phone] Shivani Mccall MD Tired (Primary Dx); Homeless; Normocytic anemia Discharge Disposition: Home or Self Care 06/11/2024 Travel 05/22/2024 8:04 PM COMPUTER TESTER - 05/23/2024 9:29 AM [facility] Emergency ER at [address] [address] Talia Becker MD Majino, Angela R, MD Bipolar affective disorder, remission status unspecified (HCC) (Primary Dx); Agitation requiring sedation protocol; Polysubstance abuse (HCC); Noncompliance with treatment Discharge Disposition: Home or Self Care 05/22/2024 12:41 AM COMPUTER TESTER - 05/22/2024 3:07 AM [facility] Emergency ER at [address] [phone] Shravan Campoverde MD Encounter for medication refill; 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, subsequent encounter Discharge Disposition: Home or Self Care 05/22/2024 Travel 05/04/2024 [facility] PHYS SURGERY [address] [place] [phone] German Higgins MD Question from Last 3 [...] Comments Blood Pressure 120/84 06/27/2024 12:19 PM COMPUTER TESTER Pulse 89 06/27/2024 12:19 PM COMPUTER TESTER Temperature 36.8 ??C (98.2 ??F) 06/27/2024 3:26 AM CS T Respiratory Rate 16 06/27/2024 12:19 PM COMPUTER TESTER Oxygen Saturation 97% 06/27/2024 12:19 PM COMPUTER TESTER Inhaled Oxygen Concentration - - Weight 81.6 kg (180 lb) 06/20/2024 1:22 AM COMPUTER TESTER Height 177.8 cm (5' 10 ) 06/20/2024 1:22 AM COMPUTER TESTER Body Mass Index 25.83 06/20/2024 1:22 AM COMPUTER TESTER Plan of Treatment Upcoming Encounters Date Type Department Care Team (Late st Contact Info) Description 11/15/2024 3:00 PM CDT Office Visit [facility] - Neurology [address] [place] [address], [place] [phone] Anupam Genao MD [address] [place] [address] [place] [phone] Health Maintenance Due Date Last Done Comments [...] LEVETIRACETAM LEVEL STAT 06/27/2024 4 :55 AM COMPUTER TESTER CARBAMAZEPINE LEVEL TOTAL STAT 06/27/2024 4:55 AM COMPUTER TESTER VALPROIC ACID LEVEL STAT 06/27/2024 4 :55 AM COMPUTER TESTER TEG 6S PLATELET MAPPING STAT 06/27/19 4:55 AM COMPUTER TESTER TEG 6 GLOBAL HEMOSTASIS W/ LYSIS STAT 06/27/2024 4:55 AM COMPUTER TESTER ALCOHOL ETHYL BLOOD STAT 06/27/2024 4 :55 AM COMPUTER TESTER PT-INR [facility] STAT 06/27/2024 4:55 AM COMPUTER TESTER MAGNESIUM BLOOD STAT 06/27/2024 4:55 AM COMPUTER TESTER COMPREHENSIVE METABOLIC PANEL STAT 06/27/2024 4:55 AM COMPUTER TESTER CBC W AUTO DIFFERENTIAL STAT 06/27/19 4:[address] HEAD WO CONTRAST STAT 06/27/2024 3 :53 AM COMPUTER TESTER Traumatic injury of head, initial encounter Laceration of scalp, initial encounter LACTIC ACID BLOOD REFLEX TO REPEAT STAT 06/17/2024 9:45 AM COMPUTER TESTER HYDROXYBUTYRATE BETA STAT 06/17/2024 9:45 AM COMPUTER TESTER ALCOHOL ETHYL BLOOD STAT 06/17/2024 9 :45 AM COMPUTER TESTER COMPREHENSIVE METABOLIC PANEL STAT 06/17/2024 9:45 AM COMPUTER TESTER CBC W AUTO DIFFERENTIAL STAT 06/17/19 9:45 AM COMPUTER TESTER ED INCISION AND DRAINAGE Routine 06/15/2024 1:50 AM COMPUTER TESTER XR HAND LEFT 3VW OR MORE STAT 06/13/2024 10:44 AM COMPUTER TESTER Open wound of left hand without foreign body, unspecified wound type, initial encounter CULTURE WOUND+GRAM STAIN STAT 06/13/2024 10:29 AM COMPUTER TESTER URINE DRUG SCREEN IMMUNOASSAY STAT 06/11/2024 11:34 AM COMPUTER TESTER VALPROIC ACID LEVEL STAT 06/11/2024 1 0:52 AM COMPUTER TESTER ALCOHOL ETHYL BLOOD STAT 06/11/2024 1 0:52 AM COMPUTER TESTER BASIC METABOLIC PANEL (CALCIUM TOTAL) STAT 06/11/2024 10:52 AM COMPUTER TESTER CBC W AUTO DIFFERENTIAL STAT 06/11/19 10:52 AM COMPUTER TESTER from Last 3 Months Results * TEG 6 GLOBAL HEMOSTASIS W/ LYSIS (06/27/2024 4:55 AM COMPUTER TESTER) Citrated Kaolin R (Reaction Time) 4.7 4.6 - 9.1 min 06/27/2024 6:09 AM [facility] Citrated Kaolin LY30 (Lysis) 0.5 0.0 - 2.6 % 06/27/2024 6:09 AM [facility] Citrated Functional Fibrinogen MA (Max Amplitude) 18.0 15.0 - 32.0 mm 06/27/2024 6:09 AM [facility] Citrated RapidTEG MA (Max Amplitude) 60.6 52.0 - 70.0 mm 06/27/2024 6:09 AM [facility] Blood BLOOD SPECIMEN / Unknown Venipuncture / Unknown 06/27/2024 4:55 AM [facility] 06/27/2024 5:10 AM [facility] Shama Hutchins MD LAB - HEMATOLOGY ORD ERABLES [address] [phone] [phone] * (ABNORMAL) TEG 6S PLATELET MAPPING (06/27/2024 4:55 AM [facility]) TEGPLM (Max Amplitude) Koalin 60.0 53.0 - 68.0 mm 06/27/2024 6:09 AM [facility] TEGPLM (Max Amplitude) ACTF 7.3 2.0 - 19.0 mm 06/27/2024 6:09 AM [facility] TEGPLM (Max Amplitude) ADP 34.1(L) 45.0 - 69.0 mm 06/27/2024 6:09 AM [facility] Comment:ADP MA below normal range. Inhibition present. TEGPLM (Max Amplitude) AA 44.3(L) 51.0 - 71.0 mm 06/27/2024 6:09 AM [facility] Comment:AA MA below normal r cleo. Inhibition present. TEGPLM %Inhibition ADP 49.1(H) 0.0 - 17.0 % 06/27/2024 6:09 AM [facility] TEGPLM %Inhibition AA 29.8(H) 0.0 - 11.0 % 06/27/2024 6:09 AM [facility] TEGPLM %Aggregation ADP 50.9(L) 83.0 - 100.0 % 06/27/2024 6:09 AM [facility] TEGPLM % Aggregation AA 70.2(L) 89.0 - 100.0 % 06/27/2024 6:09 AM [facility] Blood BLOOD SPECIMEN / Unknown Venipuncture / Unknown 06/27/2024 4:55 AM COMPUTER TESTER 06/27/2024 5:10 AM [facility] Shama Hutchins MD LAB - HEMATOLOGY ORD ERABLES Performing Organization Address [facility]/ZIP Co de Phone Number [address] [phone], [facility] [phone] * PT-INR [facility] (06/27/2024 4:55 AM COMPUTER TESTER) PT 12.2 12.1 - 14.8 Seconds 06/27/2024 6:22 AM [facility] INR 0.9 See Comment 06/27/2024 6:22 AM [facility] Comment:The suggested therap eutic range for standard coumadin (warfarin) therapy is an INR of 2.0-3.0. For high-risk patients (Mechanical Mitral Valve Prosthesis, etc.), the suggested prophylactic therapeutic range is an INR of 2.5-3.5. Blood BLOOD SPECIMEN / Unknown Venipuncture / Unknown 06/27/2024 4:55 AM COMPUTER TESTER 06/27/2024 5:56 AM [facility] Shama Hutchins MD LAB - COAGULATION OR DERABLES Performing Organization Address [facility]/ZIP Co de Phone Number [address] [address], [place] [phone] * LEVETIRACETAM LEVEL (06/27/2024 4:55 AM COMPUTER TESTER) Levetiracetam 30 10 - 40 ug/mL 06/29/2024 6:20 AM [facility] Comment: INTERPRETIVE INFORMATION: Keppra (Levetiracetam) Therapeutic Range: ??10-40 ug/mL ?Toxic: ??Not well Established Pharmacokinetics of levetiracetam are affected by renal function. Adverse effects may include somnolence, weakness, headache and vomiting. This levetiracetam (Keppra) immunoassay uses the [employer] reagents, which has known cross-reactivity with the drug brivaracetam (Briviact) and may report inaccurate results. Patients transitioning from levetiracetam to brivaracetam or those who are using both medications should not monitor drug concentrations with the [employer] assay. These patients should be monitored using a validated chromatographic methodology that distinguishes between drugs to determine drug concentrations. Performed By: [facility] [address] [place] [address] [employer] Machine Offbearer: Miguel Pizano MD, PhD CLIA Number: [id number] Blood BLOOD SPECIMEN / Unknown Venipuncture / Unknown 06/27/2024 4:55 AM COMPUTER TESTER 06/27/2024 5:05 AM COMPUTER TESTER Shama Hutchins MD LAB - THERAPEUTIC DR MASTERSON MONITORING ORDERABLES [facility] ([facility]) [address] [place] [address], [facility] * (ABNORMAL) CBC W AUTO DIFFERENTIAL (06/27/2024 4:55 AM COMPUTER TESTER) Only the most recent of3 resultswithin the time period is included. WBC 13.6(H) 4.0 - 10.7 x10E9/L 06/27/2024 5:20 AM [facility] RBC Count 4.25(L) 4.30 - 5.80 x10E12/L 06/27/2024 5:20 AM [facility] Hemoglobin 12.6(L) 13.3 - 17.5 g/dL 06/27/2024 5:20 AM [facility] Hematocrit 37.4(L) 38.7 - 51.1 % 06/27/2024 5:20 AM [facility] MCV 88.0 80.0 - 98.0 fL 06/27/2024 5:20 AM [facility] MCH 29.6 26.7 - 33.6 pg 06/27/2024 5:20 AM [facility] MCHC 33.7 31.7 - 36.3 g/dL 06/27/2024 5:20 AM [facility] RDW-CV 11.9 11.3 - 14.8 % 06/27/2024 5:20 AM [facility] Platelet Count 293 150 - 420 x10E9/L 06/27/2024 5:20 AM [facility] MPV 9.5 7.8 - 11.4 fL 06/27/2024 5:20 AM [facility] Neutrophil % 72.9 41.0 - 74.0 % 06/27/2024 5:20 AM [facility] Lymphocyte % 18.0 17.0 - 47.0 % 06/27/2024 5:20 AM [facility] Monocyte % 6.8 3.0 - 11.0 % 06/27/2024 5:20 AM [facility] Eosinophil % 1.6 0.0 - 7.0 % 06/27/2024 5:20 AM [facility] Basophil % 0.3 0.0 - 1.6 % 06/27/2024 5:20 AM [facility] Immature Granulocytes % 0.4 0.0 - 1.0 % 06/27/2024 5:20 AM [facility] Neutrophil Absolute 9.90(H) 1.60 - 7.50 x10E9/L 06/27/2024 5:20 AM [facility] Lymphocyte Absolute 2.45 1.00 - 4.40 x10E9/L 06/27/2024 5:20 AM [facility] Monocyte Absolute 0.93 0.15 - 1.00 x10E9/L 06/27/2024 5:20 AM [facility] Eosinophil Absolute 0.22 0.00 - 0.60 x10E9/L 06/27/2024 5:20 AM [facility] Basophil Absolute 0.04 0.00 - 0.13 x10E9/L 06/27/2024 5:20 AM [facility] Blood BLOOD SPECIMEN / Unknown Venipuncture / Unknown 06/27/2024 4:55 AM COMPUTER TESTER 06/27/2024 5:11 AM COMPUTER TESTER Shama Hutchins MD LAB - HEMATOLOGY ORD ERABLES [facility] [address] [place] [address], [facility] [phone] * (ABNORMAL) COMPREHENSIVE METABOLIC PANEL (06/27/2024 4:55 AM COMPUTER TESTER) Only the most recent of2 resultswithin the time period is included. BUN 7 7 - 26 mg/dL 06/27/2024 5:40 AM [facility] Creatinine 0.62(L) 0.71 - 1.16 mg/dL 06/27/2024 5:40 AM [facility] Sodium 142 136 - 145 mmol/L 06/27/2024 5:40 AM [facility] Potassium 4.5 3.5 - 4.5 mmol/L 06/27/2024 5:40 AM [facility] Chloride 110(H) 98 - 107 mmol/L 06/27/2024 5:40 AM [facility] CO2 27 22 - 29 mmol/L 06/27/2024 5:40 AM [facility] Glucose 100(H) 70 - 99 mg/dL 06/27/2024 5:40 AM [facility] Calcium 9.1 8.4 - 10.2 mg/dL 06/27/2024 5:40 AM [facility] Protein Total 6.6 6.0 - 8.3 g/dL 06/27/2024 5:40 AM [facility] Albumin 4.0 3.4 - 5.0 g/dL 06/27/2024 5:40 AM [facility] Bilirubin Total 0.3 0.2 - 1.2 mg/dL 06/27/2024 5:40 AM [facility] Alkaline Phosphatase 66 40 - 150 U/L 06/27/2024 5:40 AM [facility] ALT 19 5 - 55 U/L 06/27/2024 5:40 AM [facility] AST 31 5 - 34 U/L 06/27/2024 5:40 AM [facility] Anion Gap 5(L) 6 - 16 06/27/2024 5:40 AM [facility] BUN/Creatinine Ratio 11 7 - 23 06/27/2024 5:40 AM [facility] Osmolality Calculated 292 275 - 295 mOsm/kg 06/27/2024 5:40 AM [facility] Albumin/Globulin Ratio 1.5 1.1 - 2.3 06/27/2024 5:40 AM [facility] eGFR by CKD-EPI >90 >=90 mL/min/1.7 3 m2 06/27/2024 5:40 AM [facility] Blood BLOOD SPECIMEN / Unknown Venipuncture / Unknown 06/27/2024 4:55 AM COMPUTER TESTER 06/27/2024 5:11 AM COMPUTER TESTER Shama Hutchins MD LAB - CHEMISTRY TISHA WOODALL Performing Organization Address City/[facility]/ZIP Co de Phone Number [address] [address], [facility] [phone] * MAGNESIUM BLOOD (06/27/2024 4:55 AM COMPUTER TESTER) Magnesium 2.0 1.6 - 2.6 mg/dL 06/27/2024 5:40 AM [facility] Blood BLOOD SPECIMEN / Unknown Venipuncture / Unknown 06/27/2024 4:55 AM COMPUTER TESTER 06/27/2024 5:11 AM COMPUTER TESTER Shama Hutchins MD LAB - CHEMISTRY TISHA WOODALL [address] [address], [facility] [phone] * ALCOHOL ETHYL BLOOD (06/27/2024 4:55 AM COMPUTER TESTER) Only the most recent of3 resultswithin the time period is included. Ethanol (mg/dL) <10 <10 mg/dL 5:40 AM [facility] Ethanol Calculated (g/dL) <0.010 <=0.010 g/dL 06/27/2024 5:40 AM COMPUTER TESTER [facility] Blood BLOOD SPECIMEN / Unknown Venipuncture / Unknown 06/27/2024 4:55 AM COMPUTER TESTER 06/27/2024 5:11 AM COMPUTER TESTER Narrative [facility] - 06/27/2024 5:40 AM COMPUTER TESTER Ethanol Interp <10: None Detected. Depression of VIDEO TECHNICIAN: >100 mg/dl Potentially Critical: >250 mg/dl [...] - CHEMISTRY TISHA WOODALL Performing Organization Address City/[facility]/ZIP Co de Phone Number [address] [address], [facility] [phone] * (ABNORMAL) VALPROIC ACID LEVEL (06/27/2024 4:55 AM COMPUTER TESTER) Only the most recent of2 resultswithin the time period is included. Valproic Acid Total <13(L) 50 - 100 ug/mL 06/27/2024 5:44 AM COMPUTER TESTER [facility] Blood BLOOD SPECIMEN / Unknown Venipuncture / Unknown 06/27/2024 4:55 AM COMPUTER TESTER 06/27/2024 5:16 AM COMPUTER TESTER Shama Hutchins MD LAB - CHEMISTRY TISHA WOODALL [address] [address], [place] [phone] * (ABNORMAL) CARBAMAZEPINE LEVEL TOTAL (06/27/2024 4:55 AM COMPUTER TESTER) Carbamazepine, trough <1.9(L) 4.0 - 12.0 ug/mL 06/27/2024 5:44 AM COMPUTER TESTER [facility] Blood BLOOD SPECIMEN / Unknown Venipuncture / Unknown 06/27/2024 4:55 AM COMPUTER TESTER 06/27/2024 5:16 AM COMPUTER TESTER Shama Hutchins MD LAB - CHEMISTRY TISHA Crow Organization Address City/State/ZIP Co de Phone Number [facility] [place] [address], [facility] [phone] * CT Head Wo Contrast (06/27/2024 3:53 AM COMPUTER TESTER) Anatomical Region Laterality Modality Head Computed Tomogra phy 06/27/2024 4:36 AM COMPUTER TESTER Impressions 06/27/2024 12:55 PM COMPUTER TESTER IMPRESSION: 1.Streak artifact from the embolization material in the right frontal lobe limits evaluation. Within the limitations of this exam, no large acute intracranial hemorrhage or mass effect is identified. 2.A left parietal scalp contusion/hematoma with overlying skin gonzalo. No acute calvarial fractures. > Dictated by Mark Orozco DO (Relay Tester Helper), 06/27/2024 4:55 AM. I, Popeye Hughes MD have personally reviewed and interpreted this examination/study. > Interpreting Provider: Popeye Hughes MD on 06/27/2024 12:55 PM Narrative 06/27/2024 12:55 PM COMPUTER TESTER PROCEDURE: ??CT HEAD WO CONTRAST, DATE/TIME OF EXAM: ??06/27/2024 3:54 AM, LOCATION ??[facility] INDICATION: S09.90XA: Traumatic injury of head, initial [...] OF EXAM: 06/27/2024 3:54 AM, LOCATION [facility] INDICATION: S09.90XA: Traumatic injury of head, initial [...] fractures. > Dictated by Mark Orozco DO (Relay Tester Helper), 06/27/2024 4:55AM. Popeye Pastrana MD have personally reviewed and interpreted this examination/study. > Interpreting Provider: Popeye Hughes MD on 06/27/2024 12:55 PM Shama A Liset MD CT ORDERABLES * (ABNORMAL) LACTIC ACID BLOOD REFLEX TO REPEAT (06/17/2024 9:45 AM COMPUTER TESTER) Lactic Acid 3.3(HH) <=2.0 mmol/L 06/17/2024 10:23 AM COMPUTER TESTER [facility] Blood BLOOD SPECIMEN / Unknown Venipuncture / Unknown 06/17/2024 9:45 AM COMPUTER TESTER 06/17/2024 9:51 AM COMPUTER TESTER James Ogden MD LAB - CHEMISTRY TISHA WOODALL Performing Organization Address [facility] Co de Phone Number [facility] [address] [place] [address] [phone] * HYDROXYBUTYRATE BETA (06/17/2024 9:45 AM COMPUTER TESTER) Beta-Hydroxybu tyrate <0.50 <0.50 mmol/L 06/17/2024 10:23 AM COMPUTER TESTER [facility] Blood BLOOD SPECIMEN / Unknown Venipuncture / Unknown 06/17/2024 9:45 AM COMPUTER TESTER 06/17/2024 9:51 AM COMPUTER TESTER Narrative [facility] - 06/17/2024 10:23 AM COMPUTER TESTER Results >1.5 mmol/L may be indicative of diabetic ketoacidosis. Use in conjunction with Serum Glucose levels. James Ogden MD LAB - CHEMISTRY TISHA WOODALL Performing Organization Address [facility] Co de Phone Number [facility] [phone] [place] [phone] * Incision/Drainage (06/15/2024 1:50 AM COMPUTER TESTER) Narrative Zane Huynh MD - 06/15/2024 1:50 AM COMPUTER TESTER Zane Huynh MD ? 06/15/2024 ??2:07 AM [...] Left 3Vw or More (06/13/2024 10:44 AM COMPUTER TESTER) Anatomical Region Laterality Modality Wrist / Hand Digital Radiogra phy 06/13/2024 10:4 5 AM COMPUTER TESTER Impressions 06/13/2024 11:03 AM COMPUTER TESTER IMPRESSION: 1. Second digit amputation. 2. No acute osseous abnormality. Report was dictated by Levar Hutchinson MD, (Integrated [facility] resident). I, Cristiana Hernández MD have personally reviewed and interpreted this examination/study. > Interpreting Provider: Cristiana Hernández MD on 06/13/2024 11:03 AM Narrative 06/13/2024 11:03 AM COMPUTER TESTER PROCEDURE: ??XR HAND LEFT 3VW OR MORE, DATE/TIME OF EXAM: ??06/13/2024 10:45 AM, LOCATION ??[facility] INDICATION: S61.402A: Open wound of left hand [...] OF EXAM: 06/13/2024 10:45 AM, LOCATION [facility] INDICATION: S61.402A: Open wound of left hand [...] Report was dictated by Levar Hutchinson MD, ([facility] resident). I, Cristiana Hernández MD have personally reviewed and interpreted this examination/study. > Interpreting Provider: Cristiana Hernández MD on 06/13/2024 11:03 AM Ara Saleem MD DIAGNOSTIC IMAGING O RDERAGREER * CULTURE WOUND+GRAM STAIN (06/13/2024 10:29 AM COMPUTER TESTER) [facility] Culture Rare normal skin anand BRIANA 06/16/2024 4:00 PM COMPUTER TESTER [facility] Gram Stain Rare Polymorphonuclear cells 06/16/2024 4:00 PM COMPUTER TESTER [facility] Gram Stain No organisms seen 025 4:00 PM COMPUTER TESTER [facility] Microbiology SPECIMEN FROM WOUND / Unknown Collection / Unknown 06/13/2024 10:29 AM COMPUTER TESTER 06/13/2024 10:34 AM COMPUTER TESTER Ara Saleem MD LAB - MICROBIOLOGY O RDERABLES [facility]CRO[facility] [address] [place], [place] [address], [facility] [phone] * (ABNORMAL) URINE DRUG SCREEN IMMUNOASSAY (06/11/2024 11:34 AM COMPUTER TESTER) Pathologist [facility] Amphetamines Screen Urine Positive(A) Negative : < 1000 ng/mL 06/11/2024 12:15 PM [facility] Comment: Positive urine amphetamine screening results should be confirmed by another generally accepted non-immunological method such as gas chromatography or mass spectrometry. ? Barbiturates Screen Urine Negative Negative : < 200 ng/mL 06/11/2024 12:15 PM [facility] Benzodiazepine Screen Urine Negative Negative : < 200 ng/mL 06/11/2024 12:15 PM [facility] Opiates Urine Negative Negative : < 300 ng/mL 06/11/2024 12:15 PM [facility] Cocaine Metabolites Urine Negative Negative : < 300 ng/mL 06/11/2024 12:15 PM [facility] Phencyclidine Screen Urine Negative Negative : < 25 ng/ml 06/11/2024 12:15 PM [facility] Cannabinoids Screen Urine Positive(A) Negative : <50 ng/mL 06/11/2024 12:15 PM [facility] Comment:Positive urine canna binoids (THC) screening results should be confirmed by another generally accepted non-immunological method such as gas chromatography or mass spectrometry. Methadone Screen Urine Negative Negative : < 300 ng/mL 06/11/2024 12:15 PM [facility] Fentanyl Screen Urine Negative Negative : <1.5 ng/mL 06/11/2024 12:15 PM [facility] Urine URINE / Unknown Collection / Unknown 06/11/2024 11:34 AM [facility] 06/11/2024 11:45 AM [facility] - 06/11/2024 12:15 PM [facility] The Urine Toxicology Screening Panel does not screen for Propoxyphene, Meprobamate, Carisoprodol, Trazodone, vpjz-[id number]-fuvdycb medications and/or volatiles (Acetone, Isopropanol, Methanol or Ethylene Glycol). Ethanol, Salicylate, Acetaminophen, Tricyclic Antidepressants and several therapeutic drugs may be individually assayed in serum or plasma specimen. Toxicology testing by the [facility] is an aid to medical diagnosis and treatment of patients. No documented chain of custody was maintained. Results are intended to be used for clinical purposes only. ? Shivani Mccall MD LAB - URINE CHEMISTR Y ORDERABLES [facility] [address] [place] [address], [place] [phone] * (ABNORMAL) BASIC METABOLIC PANEL (CALCIUM TOTAL) (06/11/2024 10:52 AM [facility]) BUN 17 7 - 26 mg/dL 06/11/2024 11:30 AM [facility] Creatinine 0.64(L) 0.71 - 1.16 mg/dL 06/11/2024 11:30 AM [facility] Sodium 138 136 - 145 mmol/L 06/11/2024 11:30 AM [facility] Potassium 3.9 3.5 - 4.5 mmol/L 06/11/2024 11:30 AM [facility] Chloride 106 98 - 107 mmol/L 06/11/2024 11:30 AM [facility] CO2 24 22 - 29 mmol/L 06/11/2024 11:30 AM [facility] Glucose 133(H) 70 - 99 mg/dL 06/11/2024 11:30 AM [facility] Calcium 8.9 8.4 - 10.2 mg/dL 06/11/2024 11:30 AM [facility] Anion Gap 8 6 - 16 06/11/2024 11:30 AM [facility] BUN/Creatinine Ratio 27(H) 7 - 23 06/11/2024 11:30 AM [facility] Osmolality Calculated 289 275 - 295 mOsm/kg 06/11/2024 11:30 AM [facility] eGFR by CKD-EPI >90 >=90 mL/min/1.7 3 m2 06/11/2024 11:30 AM [facility] Blood BLOOD SPECIMEN / Unknown Venipuncture / Unknown 06/11/2024 10:52 AM [facility] 06/11/2024 11:04 AM [facility] Shivani Mccall MD LAB - CHEMISTRY TISHA WOODALL [facility] [address] [place] [address], [facility] [phone] from Last 3 Months Care Teams Claims Processor Relationship Specialty Start Date End Date None, Physician PCP - General 06/27/24
--- OUTSIDE RECORDS SUMMARY | 2024-07-04 21:23 | XMS_ITS | Encounter Summary ---
Author Organization [facility] Address [address] [place] [address] Care Team Providers Care Fur Puller Name Role Phone Ashley Woodward MD Primary Care Provider None, Physician Primary Care Provider Unavailabl e Encounter Details Date Type Department Care Team (Late Contact Info) Description 11/29/2021 Telephone [facility] [address] [place] [address] Anupam Genao MD [address] [place] [phone] Social History Tobacco Use Types Packs/Day [...] Office Visit [facility] - Neurology [address] [place] [address] [place] [address] Anupam Genao MD [address] [place] [phone] documented as of this encounter Visit Diagnoses Not on filedocumented in this encounter Care Teams Fur Puller Relationship Specialty Start Date End Date Ashley Woodward MD [address] [place] [phone] PCP - General 12/22/17 06/26/24 None, Physician PCP - General 06/27/24 documented as of this encounter
--- OUTSIDE RECORDS SUMMARY | 2024-07-04 21:23 | XMS_ITS | Clinical Summary ---
Author Organization [facility] Address [address] [place] [address] Phone Care Team Providers Care Certified Lactation Educator Name Role Phone Ashley Woodward MD Primary [...] Department Care Team Description 06/29/2024 1:17 AM REAL PROPERTY EVALUATOR - 06/29/2024 2:15 AM [facility] Emergency [facility] Emergency [address] [place] [address] Scott Wynn MD Phantom limb pain (HCC) Discharge Disposition: Discharged to home or Selfcare 06/29/2024 Travel 06/18/2024 7:10 PM REAL PROPERTY EVALUATOR - 06/18/2024 8:40 PM [facility] Emergency [facility] Emergency [address] [place] [address] Kely Coburn, RUBY Cold exposure Discharge Disposition: Discharged to home or Selfcare 06/18/2024 Travel 06/10/2024 6:18 AM REAL PROPERTY EVALUATOR - 06/10/2024 8:33 AM [facility] Emergency [facility] Emergency [address] [place] [address] Shelly Barker MD Encounter for other general examination Discharge Disposition: Discharged to home or Selfcare 06/10/2024 Travel 06/06/2024 1:45 AM REAL PROPERTY EVALUATOR - 06/07/2024 5:40 AM [facility] Emergency [facility] Medical [address] [place] [phone] Gigi Tesfaye MD Halliday, Sarah M, MANAGER ROUTE, EMERGENCY MANAGEMENT CONSULTANT Hector Bellamy MD Cellulitis of left hand Discharge Disposition: Left Against Medical Advice 06/06/2024 Travel 05/04/2024 4:25 AM REAL PROPERTY EVALUATOR - 05/05/2024 11:40 AM [facility] Emergency [facility] Med Surg [address] [place] [phone] Lonnie Mittal MD Krishna, Naveen Kumar, MD [...] declined 06/06/2024 How often do you attend synagogue or mandaeism serv ices? Patient declined 06/06/2024 Do you belong to any clubs o r organizations such as synagogue groups, unions, fraternal or athletic groups, or [...] medical care, and heating? Patient declined 06/06/2024 [facility] Whick of Occupat ional [facility] - Occupational Stress Questionnaire Answer Date [...] in the past 12 m [facility], were you homeless or living in a [place] health care facility (including now)? Patient declined 06/06/2024 Sexually Active Control Partners Comments Yes Female Sex and Gender Information Value Date Recorded Sex Assigned at Male 05/04/2024 4:31 AM REAL PROPERTY EVALUATOR Legal Sex Male 9:58 PM CDT Gender Identity Male 05/04/2024 4:31 AM REAL PROPERTY EVALUATOR Sexual Orientation Not on file Last Filed Vital Signs Vital Sign Reading Time Taken Comments Blood Pressure 137/66 06/29/2024 2:13 AM REAL PROPERTY EVALUATOR Pulse 80 06/29/2024 2:13 AM REAL PROPERTY EVALUATOR Temperature 36.2 ??C (97.1 ??F) 06/29/2024 2:13 AM CS T Respiratory Rate 16 06/29/2024 2:13 AM REAL PROPERTY EVALUATOR Oxygen Saturation 99% 06/29/2024 2:13 AM REAL PROPERTY EVALUATOR Inhaled Oxygen Concentration - - Weight 77.1 kg (170 lb) 06/29/2024 1:17 AM REAL PROPERTY EVALUATOR Height 177.8 cm (5' 10 ) 06/29/2024 1:17 AM REAL PROPERTY EVALUATOR Body Mass Index 24.39 06/29/2024 1:17 AM REAL PROPERTY EVALUATOR Plan of Treatment Health Maintenance Due Date [...] DRUG SCREEN Routine 06/06/2024 7:4 9 PM REAL PROPERTY EVALUATOR CULTURE, AEROBIC Routine 06/06/2024 3:04 PM REAL PROPERTY EVALUATOR CULTURE, ANAEROBIC Routine 06/06/2024 3: 04 PM REAL PROPERTY EVALUATOR CULTURE, ANAEROBIC WITH CULTURE, AEROBIC Routine 06/06/2024 3:[address] LEFT HAND W CONTRAST Stat with Interpretation 06/06/2024 3:58 AM REAL PROPERTY EVALUATOR CULTURE, BLOOD STAT 06/06/2024 3:00 AM REAL PROPERTY EVALUATOR CBC WITH AUTO DIFFERENTIAL STAT 06/06/2024 2:35 AM REAL PROPERTY EVALUATOR LACTIC ACID (LACTATE) STAT 06/06/2024 2:35 AM REAL PROPERTY EVALUATOR C-REACTIVE PROTEIN (CRP) QUANT STAT 06/06/2024 2:35 AM REAL PROPERTY EVALUATOR ERYTHROCYTE SEDIMENTATION RATE (ESR) STAT 06/06/2024 2:35 AM REAL PROPERTY EVALUATOR CMP (COMPREHENSIVE METABOLIC PANEL) STAT 06/06/2024 2:35 AM REAL PROPERTY EVALUATOR COMPLETE BLOOD COUNT (CBC) WITH DIFF STAT 06/06/2024 2:35 AM REAL PROPERTY EVALUATOR CULTURE, BLOOD STAT 06/06/2024 2:35 AM REAL PROPERTY EVALUATOR CRITICAL CARE Routine 06/06/2024 2:17 AM REAL PROPERTY EVALUATOR CULTURE, AEROBIC Routine 05/05/2024 10:14 AM REAL PROPERTY EVALUATOR SMEAR, GRAM STAIN Routine 05/05/2024 10:13 AM REAL PROPERTY EVALUATOR CBC WITH AUTO DIFFERENTIAL Routine 05/05/2024 4:42 AM REAL PROPERTY EVALUATOR VANCOMYCIN Timed 05/05/2024 4:42 AM REAL PROPERTY EVALUATOR COMPLETE BLOOD COUNT (CBC) WITH DIFF Routine 05/05/2024 4:42 AM REAL PROPERTY EVALUATOR BASIC METABOLIC PANEL W/ CALCIUM TOTAL Routine 05/05/2024 4:42 AM REAL PROPERTY EVALUATOR MRSA NASAL PCR Routine 05/04/2024 6:01 PM REAL PROPERTY EVALUATOR MRSA NASAL BY PCR Routine 05/04/2024 6:0 1 PM REAL PROPERTY EVALUATOR LACTIC ACID (LACTATE) STAT 05/04/2024 6:24 AM REAL PROPERTY EVALUATOR XR FINGER(S) MIN 2 VIEWS LT STAT 05/04/2024 5:37 AM REAL PROPERTY EVALUATOR CBC WITH AUTO DIFFERENTIAL STAT 05/04/2024 5:30 AM REAL PROPERTY EVALUATOR HEMOGLOBIN A1C W/ ESTIMATED GLUCOSE Routine 05/04/2024 5:30 AM REAL PROPERTY EVALUATOR CMP (COMPREHENSIVE METABOLIC PANEL) STAT 05/04/2024 5:30 AM REAL PROPERTY EVALUATOR COMPLETE BLOOD COUNT (CBC) WITH DIFF STAT 05/04/2024 5:30 AM REAL PROPERTY EVALUATOR INCISION AND DRAINAGE Routine 05/04/2024 5:07 AM REAL PROPERTY EVALUATOR from Last 3 Months Results * (ABNORMAL) Urine Drug Screen (06/06/2024 7:49 PM REAL PROPERTY EVALUATOR) [facility] UR AMPHETAMINE DETECTED(A) NON DETECTED 06/06/2024 8:10 PM REAL PROPERTY EVALUATOR [facility] Comment: FOR MEDICAL USE ONLY. CUTOFF CONCENTRATION FOR DETECTED RESULT: AMPHETAMINE: ??500 NG/ML UR BENZODIAZEPINES NON DETECTED NON DETECTED 06/06/2024 8:10 PM REAL PROPERTY EVALUATOR [facility] Comment: FOR MEDICAL USE ONLY. CUTOFF CONCENTRATION FOR DETECTED RESULT: BENZODIAZAPINE: ??200 NG/ML UR COCAINE METABOLITE NON DETECTED NON DETECTED 06/06/2024 8:10 PM REAL PROPERTY EVALUATOR [facility] Comment: FOR MEDICAL USE ONLY. CUTOFF CONCENTRATION FOR DETECTED RESULT: COCAINE: ??150 NG/ML UR OPIATES NON DETECTED NON DETECTED 06/06/2024 8:10 PM REAL PROPERTY EVALUATOR [facility] Comment: FOR MEDICAL USE ONLY. CUTOFF CONCENTRATION FOR DETECTED RESULT: OPIATES: ? 300 NG/ML UR PHENCYCLIDINE NON DETECTED NON DETECTED 06/06/2024 8:10 PM REAL PROPERTY EVALUATOR [facility] Comment: FOR MEDICAL USE ONLY. CUTOFF CONCENTRATION FOR DETECTED RESULT: PCP: ? 25 NG/ML UR CANNABINOID DETECTED(A) NON DETECTED 06/06/2024 8:10 PM REAL PROPERTY EVALUATOR [facility] Comment: FOR MEDICAL USE ONLY. CUTOFF CONCENTRATION FOR DETECTED RESULT: THC (MARIJUANA): 50 NG/ML UR BARBITURATE NON DETECTED NON DETECTED 06/06/2024 8:10 PM REAL PROPERTY EVALUATOR [facility] Comment: FOR MEDICAL USE ONLY. CUTOFF CONCENTRATION FOR DETECTED RESULT: BARBITUATES: ? 200 NG/ML UR FENTANYL NON DETECTED NON DETECTED 06/06/2024 8:10 PM REAL PROPERTY EVALUATOR [facility] Comment: FOR MEDICAL USE ONLY. CUTOFF CONCENTRATION FOR DETECTED RESULT: FENTANYL: ??1.0 NG/ML Urine Non-Phlebotomy Collection / Unknown 06/06/2024 7:49 PM REAL PROPERTY EVALUATOR 06/06/2024 7:56 PM REAL PROPERTY EVALUATOR us Hector Bellamy MD URINE ORDERABLES Final R esult [facility] [address] [place] [address] * CULTURE, ANAEROBIC (06/06/2024 3:04 PM REAL PROPERTY EVALUATOR) CULTURE RESULTS NO ANAEROBES ISOLATED 06/09/2024 12:31 PM REAL PROPERTY EVALUATOR [facility] Culture SPECIMEN COLLECTION BY DRAINAGE / Unknown Non-Phlebotomy Collection / Unknown 06/06/2024 3:04 PM REAL PROPERTY EVALUATOR 06/06/2024 3:13 PM REAL PROPERTY EVALUATOR us Hector Bellamy MD MICROBIOLOGY - GENERAL O RDERABLES Final Result [facility] [address] [place] [address], * CULTURE, AEROBIC (06/06/2024 3:04 PM REAL PROPERTY EVALUATOR) Only the most recent of2 resultswithin the time period is included. CULTURE RESULTS STREPTOCOCCUS PYOGENES 06/07/2024 9:51 PM REAL PROPERTY EVALUATOR [facility] Comment:DRUG OF CHOICE IS AM PICILLIN OR PENICILLIN CULTURE RESULTS Moderate Mixed anand 06/07/2024 9:51 PM REAL PROPERTY EVALUATOR [facility] Culture SPECIMEN COLLECTION BY DRAINAGE / Unknown Non-Phlebotomy Collection / Unknown 06/06/2024 3:04 PM REAL PROPERTY EVALUATOR 06/06/2024 3:13 PM REAL PROPERTY EVALUATOR us Hector Bellamy MD MICROBIOLOGY - GENERAL O RDERABLES Final Result [facility] [address] [place] [address], [place] * CT LEFT HAND W CONTRAST (06/06/2024 3:58 AM REAL PROPERTY EVALUATOR) Anatomical Region Laterality Modality UPPER EXTREMITY Left Computed Tomogra phy 06/06/2024 4:25 AM REAL PROPERTY EVALUATOR Impressions 06/06/2024 4:28 AM REAL PROPERTY EVALUATOR IMPRESSION: Findings concerning for cellulitis near the distal head of the 2nd metacarpal. No clear evidence of a formed abscess is seen. ??MRI performed with and without intravenous contrast would likely provide better evaluation. Narrative 06/06/2024 4:28 AM REAL PROPERTY EVALUATOR EXAM DESCRIPTION: ?? CT LEFT HAND W [...] AM T: ??06/06/2024 4:25 AM Report ID: [id number] Reading Location: ??[id number] Procedure Note Richard Bowman MD - 06/06/2024 [...] Richard Bowman M.D. KH: ROSA Report ID: [id number] Reading Location: [id number] IMPRESSION: Findings concerning for cellulitis near the distal head of the 2nd metacarpal. No clear evidence of a formed abscess is seen. MRI performed with and without intravenous contrast would likely provide better evaluation. us Gigi Tesfaye MD IMG CT ORDERABLES Final R esult * Culture, Blood (06/06/2024 3:00 AM REAL PROPERTY EVALUATOR) Only the most recent of2 resultswithin the time period is included. CULTURE RESULTS NO GROWTH WITHIN 5 DAYS, FINAL RESULT 06/11/2024 4:01 AM REAL PROPERTY EVALUATOR [facility] Culture BLOOD SPECIMEN / Unknown Venipuncture / Unknown 06/06/2024 3:00 AM REAL PROPERTY EVALUATOR 06/06/2024 3:06 AM REAL PROPERTY EVALUATOR us Gigi Tesfaye MD MICROBIOLOGY - GENERAL OR DERABLES Final Result [facility] [address] [place] [address], * (ABNORMAL) CBC with Auto Differential (06/06/2024 2:35 AM REAL PROPERTY EVALUATOR) Only the most recent of3 resultswithin the time period is included. WBC 10.91 4.00 - 12.00 10(3)/mcL 06/06/2024 2:44 AM [facility] RBC 3.65(L) 4.40 - 5.80 10(6)/mcL 06/06/2024 2:44 AM [facility] HEMOGLOBIN (HGB) 11.2(L) 13.0 - 16.5 g/dL 06/06/2024 2:44 AM [facility] HEMATOCRIT (HCT) 33.3(L) 38.0 - 50.0 % 06/06/2024 2:44 AM [facility] MCV 91.2 82.0 - 96.0 fL 06/06/2024 2:44 AM [facility] MCH 30.7 26.0 - 32.0 pg 06/06/2024 2:44 AM [facility] MCHC 33.6 31.0 - 36.0 g/dL 06/06/2024 2:44 AM REAL PROPERTY EVALUATOR [facility] PLATELET COUNT 268 140 - 440 10(3)/mcL 06/06/2024 2:44 AM [facility] RDW 12.1 11.8 - 15.5 % 06/06/2024 2:44 AM [facility] MPV 9.7 8.0 - 12.6 fL 06/06/2024 2:44 AM [facility] NEUTROPHILS 62.5 40.0 - 68.0 % 06/06/2024 2:44 [address] [facility] LYMPHOCYTES 23.0 19.0 - 49.0 % 06/06/2024 2:44 [address] [facility] MONOCYTES 9.3 3.0 - 13.0 % 06/06/2024 2:44 [address] [facility] EOSINOPHILS 4.4 0.0 - 8.0 % 06/06/2024 2:44 AM [address] [facility] BASOPHILS 0.8 0.0 - 1.0 % 06/06/2024 2:44 AM [address] [facility] ABSOLUTE NEUTROPHILS 6.81(H) 1.40 - 5.30 10(3)/[facility] 06/06/2024 2:44 AM [facility] ABSOLUTE LYMPHOCYTES 2.51 0.90 - 3.30 10(3)/[facility] 06/06/2024 2:44 AM [facility] ABSOLUTE MONOCYTES 1.02(H) 0.10 - 0.90 10(3)/[facility] 06/06/2024 2:44 AM [address] PROP[address] EV[address] [facility] ABSOLUTE EOSINOPHIL 0.48 0.00 - 0.50 10(3)/[facility] 06/06/2024 2:44 AM [facility] ABSOLUTE BASOPHILS 0.09 0.00 - 0.10 10(3)/[facility] 06/06/2024 2:44 AM [facility] NRBC PER 100 WBC 0 06/06/20 24 2:44 AM [facility] Blood Venipuncture / Unknown 06/06/2024 2:35 AM [facility] 06/06/2024 2:41 AM REAL PROPERTY EVALUATOR us Gigi Tesfaye MD HEMATOLOGY ORDERABLES Fin al Result [facility] [address] [place] [address] * Sed Rate (Esr) [id number] (06/06/2024 2:35 AM REAL PROPERTY EVALUATOR) ESR (SED RATE, ERYTHROCYTE SEDIMENTATION RATE) 5 <15 mm/h 06/06/2024 2:46 AM REAL PROPERTY EVALUATOR [facility] Comment: Patients presenting with increased level of fibrinogen, gamma globulins, or abnormally shaped RBCs could affect the results for the erythrocyte sedimentation rate (ESR). Results should be clinically correlated. Blood Venipuncture / Unknown 06/06/2024 2:35 AM REAL PROPERTY EVALUATOR 06/06/2024 2:41 AM REAL PROPERTY EVALUATOR Gigi Tesfaye MD HEMATOLOGY ORDERABLES Fin al Result Performing Organization Address [facility] Co de Phone Number [facility] [address] [place] [address] * Lactic Acid (Lactate) (06/06/2024 2:35 AM REAL PROPERTY EVALUATOR) Only the most recent of2 resultswithin the time period is included. LACTIC ACID 0.9 0.7 - 2.0 mmol/L 06/06/2024 3:05 AM REAL PROPERTY EVALUATOR [facility] Comment: Specimen is hemolyzed. In vitro hemolysis could affect results. Clinical correlation advised. Blood Venipuncture / Unknown 06/06/2024 2:35 AM REAL PROPERTY EVALUATOR 06/06/2024 2:41 AM REAL PROPERTY EVALUATOR Gigi Tesfaye MD CHEMISTRY ORDERABLES Flaca l Result Performing Organization Address [facility] Co de Phone Number [facility] [address] [place] [address] * (ABNORMAL) CMP (Comprehensive Metabolic Panel) (06/06/2024 2:35 AM REAL PROPERTY EVALUATOR) Only the most recent of2 resultswithin the time period is included. SODIUM 140 136 - 145 mmol/L 06/06/2024 3:10 AM REAL PROPERTY EVALUATOR [facility] POTASSIUM 3.8 3.5 - 5.1 mmol/L 06/06/2024 3:10 AM REAL PROPERTY EVALUATOR [facility] CHLORIDE 108(H) 98 - 107 mmol/L 06/06/2024 3:10 AM [facility] CO2, VENOUS 24 22 - 30 mmol/L 06/06/2024 3:10 AM [facility] ANION GAP 11.8 <18.0 mmol/L 06/06/2024 3:10 AM [facility] GLUCOSE 125(H) 70 - 99 mg/dL 06/06/2024 3:10 AM [facility] BUN 12 9 - 21 mg/dL 06/06/2024 3:10 AM [facility] CREATININE, BLOOD 0.73 0.70 - 1.30 mg/dL 06/06/2024 3:10 AM [facility] BUN/CREATININE RATIO 16 12 - 20 ratio 06/06/2024 3:10 AM [facility] TOTAL PROTEIN 6.2(L) 6.3 - 8.2 g/dL 06/06/2024 3:10 AM [facility] ALBUMIN 3.7 3.5 - 5.0 g/dL 06/06/2024 3:10 AM [facility] A/G RATIO 1.5 1.0 - 2.2 06/06/2024 3:10 AM [facility] CALCIUM 8.9 8.7 - 10.5 mg/dL 06/06/2024 3:10 AM [facility] T BILI 0.2 0.2 - 1.2 mg/dL 06/06/2024 3:10 AM [facility] SGOT (AST) 36(H) 5 - 34 U/L 06/06/2024 3:10 AM [facility] SGPT (ALT) 34 0 - 55 U/L 06/06/2024 3:10 AM [facility] ALKALINE PHOSPHATASE 65 40 - 150 U/L 06/06/2024 3:10 AM [facility] GFR, ESTIMATED >60 >=60 06/06/2024 3:10 AM [facility] Comment: Creatinine Clearance is the preferred criteria for selecting drug dose adjustments in renally impaired patients. ??The GFR is provided as additional pertinent clinical information. GFR is reported in mL/min/1.73 sq m. Calculation based on the Chronic Kidney Disease Epidemiology Collaboration (CKD- EPI) equation refit without adjustment for race. GFR, EST. >60 >=60 3:10 AM REAL PROPERTY EVALUATOR [facility] GFR, EST. NONAFRICAN >60 >=60 06/06/2024 3:10 AM REAL PROPERTY EVALUATOR [facility] Blood Venipuncture / Unknown 06/06/2024 2:35 AM REAL PROPERTY EVALUATOR 06/06/2024 2:41 AM REAL PROPERTY EVALUATOR Result [facility] Gigi Tesfaye MD CHEMISTRY ORDERABLES Flaca l Result Performing Organization Address [facility] Co de Phone Number [facility] [address] [place] [address] * (ABNORMAL) C-Reactive Protein Qnt (Crp) (06/06/2024 2:35 AM REAL PROPERTY EVALUATOR) C-REACTIVE PROTEIN 6.72(H) <0.50 mg/dL 06/06/2024 3:10 AM REAL PROPERTY EVALUATOR [facility] Blood Venipuncture / Unknown 06/06/2024 2:35 AM REAL PROPERTY EVALUATOR 06/06/2024 2:41 AM REAL PROPERTY EVALUATOR Gigi Tesfaye MD CHEMISTRY ORDERABLES Flaca l Result Performing Organization Address City/[facility]/ZIP Co de Phone Number [facility] [address] [place] [address] * Critical Care (06/06/2024 2:17 AM REAL PROPERTY EVALUATOR) Narrative Gigi Tesfaye MD - 06/06/2024 2:17 AM REAL PROPERTY EVALUATOR Gigi Tesfaye MD ? 06/06/2024 ??5:22 AM [...] * SMEAR, GRAM STAIN (05/05/2024 10:13 AM REAL PROPERTY EVALUATOR) GRAM STAIN No epithelial cells 05/05/2024 5:39 PM REAL PROPERTY EVALUATOR [facility] GRAM STAIN No Segmented Neutrophils seen 05/05/2024 5:39 PM REAL PROPERTY EVALUATOR [facility] GRAM STAIN No Organisms seen 05/05/2024 5:39 PM REAL PROPERTY EVALUATOR [facility] Other SPECIMEN FROM WOUND / Unknown Non-Phlebotomy Collection / Unknown 05/05/2024 10:13 AM REAL PROPERTY EVALUATOR 05/05/2024 10:13 AM REAL PROPERTY EVALUATOR Evan Meyer MD MICROBIOLOGY - GENERAL ORDERAB LES Final Result Performing Organization Address City/State/[facility] Co de Phone Number [facility] [address] [place] [address], * (ABNORMAL) Vancomycin Level (05/05/2024 4:42 AM REAL PROPERTY EVALUATOR) VANCOMYCIN RESULT 13(L) 20 - 40 mcg/mL 05/05/2024 6:07 AM REAL PROPERTY EVALUATOR [facility] Blood Venipuncture / Unknown 05/05/2024 4:42 AM REAL PROPERTY EVALUATOR 05/05/2024 5:40 AM REAL PROPERTY EVALUATOR Narrative [facility] - 05/05/2024 6:07 AM REAL PROPERTY EVALUATOR CALL PHARMACY FOR THERAPEUTIC RANGE. us Hector Bellamy MD CHEMISTRY ORDERABLES Fin al Result [facility] [address] [place] [address] * (ABNORMAL) BMP with Ca, Total (05/05/2024 4:42 AM REAL PROPERTY EVALUATOR) SODIUM 138 136 - 145 mmol/L 05/05/2024 6:07 AM [facility] POTASSIUM 3.9 3.5 - 5.1 mmol/L 05/05/2024 6:07 AM [facility] CHLORIDE 107 98 - 107 mmol/L 05/05/2024 6:07 AM [facility] CO2, VENOUS 22 22 - 30 mmol/L 05/05/2024 6:07 AM [facility] ANION GAP 12.9 <18.0 mmol/L 05/05/2024 6:07 AM [facility] GLUCOSE 100(H) 70 - 99 mg/dL 05/05/2024 6:07 AM [facility] BUN 11 9 - 21 mg/dL 05/05/2024 6:07 AM [facility] CREATININE, BLOOD 0.67(L) 0.70 - 1.30 mg/dL 05/05/2024 6:07 AM [facility] BUN/CREATININE RATIO 16 12 - 20 ratio 05/05/2024 6:07 AM [facility] CALCIUM 9.0 8.7 - 10.5 mg/dL 05/05/2024 6:07 AM [facility] GFR, ESTIMATED >60 >=60 05/05/2024 6:07 AM [facility] Comment: Creatinine Clearance is the preferred criteria for selecting drug dose adjustments in renally impaired patients. ??The GFR is provided as additional pertinent clinical information. GFR is reported in mL/min/1.73 sq m. Calculation based on the Chronic Kidney Disease Epidemiology Collaboration (CKD- EPI) equation refit without adjustment for race. GFR, EST. >60 >=60 024 6:07 AM REAL PROPERTY EVALUATOR [facility] GFR, EST. NONAFRICAN >60 >=60 05/05/2024 6:07 AM REAL PROPERTY EVALUATOR [facility] Blood Venipuncture / Unknown 05/05/2024 4:42 AM REAL PROPERTY EVALUATOR 05/05/2024 5:39 AM REAL PROPERTY EVALUATOR Hector Bellamy MD CHEMISTRY ORDERABLES Fin al Result Performing Organization Address City/[facility]/ZIP Co de Phone Number [facility] [address] [place] [address] * (ABNORMAL) MRSA NASAL PCR (05/04/2024 6:01 PM REAL PROPERTY EVALUATOR) MRSA PCR RESULT Positive(A ) Negative, Invalid 05/04/2024 7:26 PM REAL PROPERTY EVALUATOR [facility] Other NASOPHARYNGEAL SWAB / Unknown Non-Phlebotomy Collection / Unknown 05/04/2024 6:01 PM REAL PROPERTY EVALUATOR 05/04/2024 6:23 PM REAL PROPERTY EVALUATOR Hector Bellamy MD MICROBIOLOGY - GENERAL O RDERABLES Final Result Performing Organization Address City/[facility]/ZIP Co de Phone Number [facility] [address] [place] [address] * XR FINGER(S) MIN 2 VIEWS LT (05/04/2024 5:37 AM REAL PROPERTY EVALUATOR) Anatomical Region Laterality Modality UPPER EXTREMITY, Fingers N/A Digital Radiography 05/04/2024 6:58 AM REAL PROPERTY EVALUATOR Impressions 05/04/2024 7:00 AM REAL PROPERTY EVALUATOR IMPRESSION: Diffuse soft tissue swelling of the 2nd digit with soft tissue laceration. ??The presence of bandaging material limits assessment for foreign body. ??No acute fracture Narrative 05/04/2024 7:00 AM REAL PROPERTY EVALUATOR EXAM DESCRIPTION: XR FINGER(S) MIN 2 VIEWS [...] AM T: ??05/04/2024 6:58 AM Report ID: [id number] Reading Location: ??[id number] Procedure Note Sarahy Gibbs MD - 05/04/2024 [...] by Sarahy Gibbs M.D. TW: Report ID: [id number] Reading Location: [id number] IMPRESSION: Diffuse soft tissue swelling of the 2nd digit with soft tissue laceration. The presence of bandaging material limits assessment for foreign body. No acute fracture us Lonnie Mittal MD IMG DIAGNOSTIC ORDERABLES Final Result * Hemoglobin A1C w/ Estimated Glucose (05/04/2024 5:30 AM REAL PROPERTY EVALUATOR) HGB-A1C 5.3 4.0 - 6.0 % 05/04/2024 10:24 AM REAL PROPERTY EVALUATOR [facility] Est Average Glucose 105.4 mg/dL 05/04/2024 10:24 AM REAL PROPERTY EVALUATOR [facility] Blood Venipuncture / Unknown 05/04/2024 5:30 AM REAL PROPERTY EVALUATOR 05/04/2024 6:06 AM REAL PROPERTY EVALUATOR Narrative [facility] - 05/04/2024 10:24 AM REAL PROPERTY EVALUATOR HEMOGLOBIN A1C: DIABETIC PATIENTS: WELL-CONTROLLED: ?? 6.2 - 7.0 INTERMEDIATE WELL-CONTROLLED: ??7.0 - 9.0 POORLY-CONTROLLED: ??>9.0 us Hector Bellamy MD CHEMISTRY ORDERABLES Fin al Result [facility] [address] [place] [address] * Incision and Drainage (05/04/2024 5:07 AM REAL PROPERTY EVALUATOR) Narrative Sergio Busby MD - 05/04/2024 5:07 AM REAL PROPERTY EVALUATOR Sergio Busby MD ? 05/04/2024 ??6:44 AM Incision and Drainage Performed by: Lonnie Mittal MD Authorized by: Lonnie Mittal MD ?? Consent: ??Consent obtained: ??Verbal ??Consent given by: ??Patient ??Risks discussed: ??Bleeding, incomplete drainage, infection and pain ??Alternatives discussed: ??No treatment [place] protocol: ??Patient identity confirmed: ??Verbally with patient [...] measures to stabilize the patient. Care Teams Certified Lactation Educator Relationship Specialty Start Date End Date Ashley Woodward MD [address] [place] [address] [facility] [address] [place] [address] PCP - General Internal Medicine 05/04/24
--- OUTSIDE RECORDS SUMMARY | 2024-07-04 21:23 | XMS_ITS | Clinical Summary ---
Author Organization [facility] Address [address] [place] [address] Phone Care Team Providers Care Hogshead Weigher Name Role Phone Unavailable Primary Care Provider [...] Encounters Date Type Department Care Team Description 07/04/2024 External Device Data ST[facility] ABSTRACTION Provider, Abstract 07/04/2024 External Device Data [facility] ABSTRACTION Provider, Abstract 07/04/2024 External Device Data ST[facility] ABSTRACTION Provider, Abstract 06/22/2024 5:10 PM TENTERING MACHINE OFF BEARER - 06/22/2024 5:50 PM [facility] Emergency [facility] Emergency Department [address] [place] [phone] Eleazar Davila DO Hungry, initial encounter (Primary Dx) Discharge Disposition: Home or Self Care 06/22/2024 Travel 06/17/2024 7:38 AM [facility] - 06/17/2024 8:22 AM [facility] Emergency Department [address] [place] [id number] Wilver Joel DO Homelessness (Primary Dx); Refused assessment of physical health Discharge Disposition: Home or Self Care 06/17/2024 Travel 06/17/2024 - 06/17/2024 5:51 AM TENTERING MACHINE OFF BEARER Emergency [facility] Emergency Department [address] [place] [address] Discharge Disposition: Left without being seen 06/16/2024 6:26 PM TENTERING MACHINE OFF BEARER - 06/16/2024 8:14 PM TENTERING MACHINE OFF BEARER Emergency [facility] Emergency Department [address] [place] [address] Vinny Munoz MD Housing insecurity (Primary Dx) Discharge Disposition: Home or Self Care 05/23/2024 2:19 PM TENTERING MACHINE OFF BEARER - 05/23/2024 6:42 PM TENTERING MACHINE OFF BEARER Emergency [facility] Emergency Department [address] [place] [address] Lucas Rosa MD Homeless (Primary Dx); Other [...] on file Legal Sex Male 9:40 PM TENTERING MACHINE OFF BEARER Gender Identity Not on file Sexual Orientation Not on file Last Filed Vital Signs Vital Sign Reading Time Taken Comments Blood Pressure 126/72 06/22/2024 5:12 PM TENTERING MACHINE OFF BEARER Pulse 83 06/22/2024 5:12 PM TENTERING MACHINE OFF BEARER Temperature 36.6 ??C (97.9 ??F) 06/22/2024 5:12 PM CS T Respiratory Rate 16 06/22/2024 5:12 PM TENTERING MACHINE OFF BEARER Oxygen Saturation 99% 06/22/2024 5:12 PM TENTERING MACHINE OFF BEARER Inhaled Oxygen Concentration - - Weight 77.1 kg (170 lb) 06/22/2024 5:12 PM TENTERING MACHINE OFF BEARER Height 177.8 cm (5' 10 ) 06/22/2024 5:12 PM TENTERING MACHINE OFF BEARER Body Mass Index 24.39 06/22/2024 5:12 PM TENTERING MACHINE OFF BEARER Plan of Treatment Health Maintenance Due Date [...] Comments ETHANOL LEVEL Stat 05/23/2024 2:57 PM TENTERING MACHINE OFF BEARER COMPREHENSIVE METABOLIC PANEL Stat 05/23/2024 2:57 PM TENTERING MACHINE OFF BEARER CBC WITH DIFFERENTIAL Stat 05/23/2024 2:57 PM TENTERING MACHINE OFF BEARER from Last 3 Months Results * (ABNORMAL) CBC WITH DIFFERENTIAL (05/23/2024 2:57 PM TENTERING MACHINE OFF BEARER) [facility] WBC 9.0 4.0 - 9.8 K/uL 05/23/2024 3:29 PM TENTERING MACHINE OFF BEARER [facility] RBC 4.14(L) 4.50 - 5.40 M/uL 05/23/2024 3:29 PM TENTERING MACHINE OFF BEARER [facility] HEMOGLOBIN 12.6(L) 13.6 - 16.5 g/dL 05/23/2024 3:29 PM TENTERING MACHINE OFF BEARER [facility] HEMATOCRIT 37.1(L) 40.0 - 48.0 % 05/23/2024 3:29 PM TENTERING MACHINE OFF BEARER [facility] MCV 89.6 82.0 - 99.0 fL 05/23/2024 3:29 PM TENTERING MACHINE OFF BEAR[employer] [facility] MCH 30.4 27.2 - 32.6 pg 05/23/2024 3:29 PM TENTERING MACHINE OFF BEARER [facility] MCHC 34.0 31.5 - 35.5 g/dL 05/23/2024 3:29 PM TENTERING MACHINE OFF BEAR[employer] [facility] RDW 12.0 11.5 - 14.5 % 05/23/2024 3:29 PM TENTERING MACHINE OFF BEAR[employer] [facility] RDW-STDEV 39.1 37.1 - 48.7 fL 05/23/2024 3:29 PM TENTERING MACHINE OFF BEAR[employer] [facility] - . [facility] PLATELETS 369(H) 140 - 350 K/uL 05/23/2024 3:29 PM [facility] - . [facility] MPV 9.7 9.3 - 12.4 fL 05/23/2024 3:29 PM TENTERING MACHINE OFF BEAR[employer] [facility] NEUTROPHILS 64 % 05/23/2024 3:29 PM TENTERING MACH[employer] OFF [employer] [facility] LYMPHOCYTES 24 % 05/23/2024 3:29 PM TENTERING MACH[employer] OFF [employer] [facility] MONOCYTES 9 % 05/23/2024 3:29 PM TENTERING MACH[employer] OFF [employer] [facility] EOSINOPHILS 3 % 05/23/2024 3:29 PM TENTERING MACH[employer] OFF [employer] [facility] - [facility] BASOPHILS 1 % 05/23/2024 3:29 PM TENTERING MACHINE OFF BEARER [facility] - . [facility] IMMATURE GRANULOCYTES 0 % 05/23/2024 3:29 PM TENTERING MACHINE OFF BEARER [facility] - . [facility] NEUTROPHIL ABSOLUTE 5.71 1.90 - 7.00 K/uL 05/23/2024 3:29 PM TENTERING MACHINE OFF BEAR[employer] [facility] LYMPHOCYTE ABSOLUTE 2.11 0.70 - 4.50 K/uL 05/23/2024 3:29 PM TENTERING MACHINE OFF BEAR[employer] [facility] MONOCYTE ABSOLUTE 0.77 0.10 - 1.30 K/uL 05/23/2024 3:29 PM TENTERING MACHINE OFF BEAR[employer] [facility] - . [facility] EOSINOPHIL ABSOLUTE 0.27 0.00 - 0.70 K/uL 05/23/2024 3:29 PM TENTERING MACHINE OFF BEARER [facility] - [facility] BASOPHILS ABSOLUTE 0.06 0.00 - 0.20 K/uL 05/23/2024 3:29 PM TENTERING MACHINE OFF BEARER [facility] - . [facility] IMMATURE GRANULOCYTES ABSOLUTE 0.04(H) 0.00 - 0.03 K/uL 05/23/2024 3:29 PM [facility] - . [facility] Blood Venipuncture / Unknown 05/23/2024 2:57 PM [employer] MACH[employer] OFF BEARER 05/23/2024 3:29 PM [employer]ENTER[employer] MACH[employer] OFF BEAR[employer] Lucas Rosa MD HEMATOLOGY ORDERABLES Final Re sult [facility] [employer] [facility] CLIA# [id number] [address] [place] [address] * ETHANOL LEVEL (05/23/2024 2:57 PM TENTERING MACHINE OFF BEARER) Pathologist [facility] ETHANOL <10.10 <10.10 mg/dL 05/23/2024 3:55 PM TENTERING MACHINE OFF BEAR[employer] [facility] ETHANOL % <0.01 %w/v 05/23/2024 3:55 PM TENTERING MACHINE OFF BEARER [employer] [facility] Blood Venipuncture / Unknown 05/23/2024 2:57 PM TENTERING MACHINE OFF BEARER 05/23/2024 3:07 PM TENTERING MACHINE OFF BEARER Lucas Rosa MD CHEMISTRY ORDERABLES Final Res ult Performing Organization Address [facility]/ZIP Co de Phone Number [facility] [employer] [facility] CLIZAIAH# [id number] [address] [place] [address] * (ABNORMAL) COMPREHENSIVE METABOLIC PANEL (05/23/2024 2:57 PM TENTERING MACHINE OFF BEARER) Pathologist [facility] SODIUM 135(L) 136 - 145 mmol/L 05/23/2024 3:55 PM TENTERING MACHINE OFF BEARER [facility] POTASSIUM 3.9 3.5 - 5.0 mmol/L 05/23/2024 3:55 PM TENTERING MACHINE OFF BEARER [facility] CHLORIDE 100 98 - 107 mmol/L 05/23/2024 3:55 PM TENTERING MACHINE OFF BEARER [facility] CO2 26 22 - 29 mmol/L 05/23/2024 3:55 PM TENTERING MACHINE OFF BEARER [facility] CALCIUM 9.7 8.6 - 10.2 mg/dL 05/23/2024 3:55 PM TENTERING MACHINE OFF BEARER [facility] BUN 23(H) 6 - 20 mg/dL 05/23/2024 3:55 PM TENTERING MACHINE OFF BEARER [facility] CREATININE 0.76 0.67 - 1.17 mg/dL 05/23/2024 3:55 PM [facility] LABORATORY [facility] - . [facility] GLUCOSE 84 74 - 99 mg/dL 05/23/2024 3:55 PM [facility] - . [facility] TOTAL PROTEIN 7.6 6.7 - 8.6 g/dL 05/23/2024 3:55 PM [facility] - . [facility] ALBUMIN 4.5 3.5 - 5.2 g/dL 05/23/2024 3:55 PM [facility] - . [facility] BILIRUBIN TOTAL 0.3 0.3 - 1.2 mg/dL 05/23/2024 3:55 PM [facility] - . [facility] ALKALINE PHOSPHATASE 68 40 - 129 U/L 05/23/2024 3:[address] [facility]. [facility] AST 84(H) <41 U/L 05/23/2024 3:[address] [facility]. [facility] ALT 63(H) <42 U/L 05/23/2024 3:55 PM [facility] GFR >60 >=60 mL/min/1.7 3 sq meter 05/23/2024 3:55 PM [facility] [employer] [facility] Comment:eGFR calculated with 2020 CKD-EPI equation. Vegetarian diet, extremely high or low muscle mass, and may affect results. Cystatin C with Glomerular Filtration Rate is a suitable alternative for these patients. ANION GAP 9 8 - 16 mmol/L 05/23/2024 3:55 PM [facility] [employer] [facility] Blood Venipuncture / Unknown 05/23/2024 2:57 PM TENTERING MACHINE OFF BEARER 05/23/2024 3:07 PM TENTERING MACHINE OFF BEARER [facility] - 05/23/2024 3:55 PM TENTERING MACHINE OFF BEARER Samples containing indocyanine green cause interferences on Total and/or Direct Bilirubin and must not be measured. Lucas Rosa MD CHEMISTRY ORDERABLES Final Res ult [facility] [employer] [facility] CLIA# [id number] [address] [place] [address] from Last 3 Months Insurance MEDICAID [place]
--- OUTSIDE RECORDS SUMMARY | 2024-07-04 21:23 | XMS_ITS | Clinical Summary ---
Author Organization [facility] Address [address] [place] [address]. [place] [address] [place] [address] Care Team Providers Care Product Owner Name Role Phone Unavailable Primary Care Provider Unavailabl e Allergies No known active allergies Encounters Date Type Department Care Team Description 06/23/2024 3:34 AM HEATER OPERATOR - 06/23/2024 3:35 AM HEATER OPERATOR Emergency [facility] [place] [address] Olamide Disla MD Medical Screening Discharge Disposition: [...] on file Legal Sex Male 2:43 AM HEATER OPERATOR Gender Identity Not on file Sexual Orientation Not on file Last Filed Vital Signs Vital Sign Reading Time Taken Comments Blood Pressure 116/69 06/23/2024 3:06 AM HEATER OPERATOR Pulse 70 06/23/2024 3:06 AM HEATER OPERATOR Temperature 36.7 ??C (98.1 ??F) 06/23/2024 3:06 AM CS T Respiratory Rate 18 06/23/2024 3:06 AM HEATER OPERATOR Oxygen Saturation 99% 06/23/2024 3:06 AM HEATER OPERATOR Inhaled Oxygen Concentration - - Weight 77.1 kg (170 lb) 06/23/2024 3:06 AM HEATER OPERATOR Height 177.8 cm (5' 10 ) 06/23/2024 3:06 AM HEATER OPERATOR Body Mass Index 24.39 06/23/2024 3:06 AM HEATER OPERATOR Plan of Treatment Health Maintenance Due Date [...] patient's age to complete this topic Insurance [employer]
--- OUTSIDE RECORDS SUMMARY | 2024-07-04 21:23 | XMS_ITS | Referral Summary ---
Author Organization [facility] becca Address [address] [place] [address] Care Team Providers Care Courtesy Driver Name Role Phone No, Physician Primary Care Provider [phone] Ashley Woodward MD Unavailable [phone] Ashley Woodward MD Unavailable [phone] Encounters Date Type Department Care Team Description 06/29/2024 3:03 AM DEPUTY PROSECUTING ATTORNEY - 06/29/2024 4:24 AM [facility] Emergency [facility] Emergency Department [address] [place] [address] Baudilio Arellano MD Phantom pain (Primary Dx) Discharge Disposition: Discharge to home or self care 06/21/2024 3:33 AM DEPUTY PROSECUTING ATTORNEY - 06/21/2024 11:59 PM DEPUTY PROSECUTING ATTORNEY Hospital Encounter [facility] Emergency, Room R Discharge Disposition: Discharge to home or self care 06/20/2024 9:06 AM DEPUTY PROSECUTING ATTORNEY - 06/21/2024 1:02 AM [facility] Emergency [facility] Emergency Department [address] [place] [address] Jyotsna Moralez MD Watson, Brendan Matthew, MD PhD Substance use (Primary Dx) Discharge Disposition: Discharge to home or self care 06/18/2024 6:32 PM DEPUTY PROSECUTING ATTORNEY - 06/18/2024 11:59 PM DEPUTY PROSECUTING ATTORNEY Hospital Encounter [facility] Emergency, Room R Discharge Disposition: Discharge to home or self care 06/10/2024 6:03 AM DEPUTY PROSECUTING ATTORNEY - 06/10/2024 11:59 PM DEPUTY PROSECUTING ATTORNEY Hospital Encounter [facility] Emergency, Room R Discharge Disposition: Discharge to home or self care 06/10/2024 10:23 PM DEPUTY PROSECUTING ATTORNEY - 06/10/2024 11:28 PM DEPUTY PROSECUTING ATTORNEY Emergency [facility] Emergency Department [address] [place] [address] Tamika Machado MD Amputated finger, subsequent encounter (Primary Dx); Finger pain, left Discharge Disposition: Discharge to home or self care 06/06/2024 1:29 AM DEPUTY PROSECUTING ATTORNEY - 06/06/2024 11:59 PM DEPUTY PROSECUTING ATTORNEY Hospital Encounter [facility]UL[facility] BILL[facility] Emergency, Room R Discharge Disposition: Discharge to home or self care 05/29/2024 2:53 AM DEPUTY PROSECUTING ATTORNEY - 05/29/2024 5:16 AM [facility] Emergency 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]; Seizure disorder (CMS/[facility]) ([facility]) [G40.909] Discharge Disposition: Discharge to home or self care 05/20/2024 2:30 AM DEPUTY PROSECUTING ATTORNEY - 05/20/2024 4:00 AM [facility] Emergency [address] [address] Westley Melgar MD Cold exposure, initial encounter (Primary Dx); Left hand pain Discharge Disposition: Discharge to home or self care 05/12/2024 5:43 AM DEPUTY PROSECUTING ATTORNEY - 05/19/2024 4:14 PM DEPUTY PROSECUTING ATTORNEY Hospital Encounter [address] [phone] Monroe Martínez MD House, Cheryl Sorensen MD PhD Parveen, MD Mark Leroy Natalia, MD Farrag, Candi Ye MD Finger infection (Primary Dx) Discharge Disposition: Discharge to home or self care 05/04/2024 4:13 AM DEPUTY PROSECUTING ATTORNEY - 05/04/2024 11:59 PM DEPUTY PROSECUTING ATTORNEY Hospital Encounter [facility] Emergency, Room R Discharge Disposition: Discharge to home or self care 04/30/2024 2:31 PM DEPUTY PROSECUTING ATTORNEY - 04/30/2024 3:15 PM DEPUTY PROSECUTING ATTORNEY Emergency [facility] Emergency Department [address] [place] [address] Cellulitis, unspecified cellulitis site (Primary Dx) Discharge Disposition: Discharge to home or self care 04/18/2024 11:11 AM DEPUTY PROSECUTING ATTORNEY - 04/18/2024 11:59 PM DEPUTY PROSECUTING ATTORNEY Hospital Encounter [facility] AMBULANCE BILLING Emergency, Room R Discharge Disposition: [...] 05/26/2024 Assessment & Plan (05/28/2024 8:43 AM DEPUTY PROSECUTING ATTORNEY): Patient with known history of adriana, during [...] 05/12/2024 Assessment & Plan (05/22/2024 6:42 PM DEPUTY PROSECUTING ATTORNEY): Pt sustained cook box filler laceration over LEFT IF PIPJ on 04/30 [...] 05/12/2024 Assessment & Plan (05/19/2024 4:18 PM DEPUTY PROSECUTING ATTORNEY): Resumed Haldol, seroquel, doxepin Resume outpatient follow up Homeless 05/12/2024 Assessment & Plan (05/19/2024 4:16 PM DEPUTY PROSECUTING ATTORNEY): SW provided a list of shelters for patient to call on discharge Counseled against drug use Abscess of index finger 05/05/2024 Partial symptomatic epilepsy with complex partial seizures, intractable, without status epilepticus 01/15/2019 Intracranial hemorrhage 04/25/2016 AVM (arteriovenous malformation) brain 6 Bipolar 1 disorder 11/05/2015 Assessment & Plan (05/19/2024 4:18 PM DEPUTY PROSECUTING ATTORNEY): Resumed home Haldol, seroquel, doxepin Resume Outpatient follow up Seizure disorder ([facility]) 11/05/2015 Assessment & Plan (05/28/2024 8:44 AM DEPUTY PROSECUTING ATTORNEY): Has not been taking outpatient seizure medications, [...] Klonopin. Assessment & Plan (05/19/2024 4:19 PM DEPUTY PROSECUTING ATTORNEY): Pt does not recall when his last [...] How often do you attend chur or restoration services? Patient unable to answer 05/26/2024 Do you belong to any clubs o r organizations such as latter-day groups, unions, fraternal or athletic groups, or [...] medical care, and heating? Very hard 05/26/2024 [facility] [employer] ional Health - Occupational Stress [...] were you homeless or living in a chcf (including now)? Yes 05/26/2024 Personal Safety Answer Date Recorded Have you ever been in or are you currently in a harmful physical or emotional relationship or is someone making you feel afraid or unsafe? Denies 06/29/2024 Sex and Gender Information Value Date Recorded Sex Assigned at Not on file Legal Sex Male 2:11 PM DEPUTY PROSECUTING ATTORNEY Gender Identity Not on file Sexual Orientation Not on file Last Filed Vital Signs Vital Sign Reading Time Taken Comments Blood Pressure 126/72 06/29/2024 3:00 AM DEPUTY PROSECUTING ATTORNEY Pulse 89 06/29/2024 3:00 AM DEPUTY PROSECUTING ATTORNEY Temperature 36.8 ??C (98.3 ??F) 06/29/2024 3:00 AM CS T Respiratory Rate 16 06/29/2024 3:00 AM DEPUTY PROSECUTING ATTORNEY Oxygen Saturation 100% 06/29/2024 3:00 AM DEPUTY PROSECUTING ATTORNEY Inhaled Oxygen Concentration - - Weight 77.1 kg (170 lb) 06/29/2024 3:00 AM DEPUTY PROSECUTING ATTORNEY Height 177.8 cm (5' 10 ) 06/10/2024 9:40 PM DEPUTY PROSECUTING ATTORNEY Body Mass Index 24.39 06/10/2024 9:40 PM DEPUTY PROSECUTING ATTORNEY Functional Status * Are you deaf or do you have serious difficulty hearing? Answer Date of Assessment Author No 05/26/2024 12:43 PM DEPUTY PROSECUTING ATTORNEY Francesca Rojo, STUDIO MUSICIAN * Are you blind or do you have serious difficulty seeing, even when wearing glasses? Answer Date of Assessment Author No 05/26/2024 12:43 PM DEPUTY PROSECUTING ATTORNEY Francesca Rojo, STUDIO MUSICIAN * Do you have serious difficulty walking or climbing stairs? Answer Date of Assessment Author No 05/26/2024 12:43 PM DEPUTY PROSECUTING ATTORNEY Francesca Rojo, STUDIO MUSICIAN * Do you have serious difficulty dressing or bathing? Answer Date of Assessment Author No 05/26/2024 12:43 PM DEPUTY PROSECUTING ATTORNEY Francesca Rojo, STUDIO MUSICIAN * Because of a physical, mental, or emotional condition, do you have serious difficulty doing errandsalone such as visiting the doctor? Answer Date of Assessment Author No 05/26/2024 12:43 PM Francesca Olvera, STUDIO MUSICIAN Mental Status * Because of a physical, mental, or emotional condition, do you have serious difficulty concentrating, remembering, or making decisions? (5 years old or older) Answer Entry Date Author No 05/26/2024 12:43 PM Francesca Olvera, STUDIO MUSICIAN Plan of Treatment Not on file Procedures Procedure Name Priority Date/Time Associated Diagnosis Comments URINALYSIS AND REFLEX TO MICROSCOPIC STAT 06/20/2024 11:42 AM DEPUTY PROSECUTING ATTORNEY DRUGS OF ABUSE SCREEN, URINE WITHOUT CONFIRMATION STAT 06/20/2024 11:42 AM DEPUTY PROSECUTING ATTORNEY EGFR STAT 06/20/2024 9:16 AM DEPUTY PROSECUTING ATTORNEY VALPROIC ACID LEVEL, TOTAL STAT 06/20/2024 9:16 AM DEPUTY PROSECUTING ATTORNEY DIFFERENTIAL AUTO STAT 06/20/2024 9:1 6 AM DEPUTY PROSECUTING ATTORNEY ETHANOL STAT 06/20/2024 9:16 AM DEPUTY PROSECUTING ATTORNEY THYROID FUNCTION CASCADE STAT 06/20/2024 9:16 AM DEPUTY PROSECUTING ATTORNEY COMPREHENSIVE METABOLIC PANEL STAT 06/20/2024 9:16 AM DEPUTY PROSECUTING ATTORNEY CBC WITH AUTO DIFFERENTIAL STAT 06/20/2024 9:16 AM DEPUTY PROSECUTING ATTORNEY POCT RAPID HIV ANTIBODY COMMUNITY SCREENING-CONOR ELIGIBLE Routine 05/29/2024 4:17 AM DEPUTY PROSECUTING ATTORNEY XR HAND LEFT 3 OR MORE VIEWS ED 05/29/2024 3:38 AM DEPUTY PROSECUTING ATTORNEY ED CRITICAL CARE Routine 05/26/2024 5:15 PM DEPUTY PROSECUTING ATTORNEY URINALYSIS, MICROSCOPIC ONLY STAT 05/25/2024 10:06 PM DEPUTY PROSECUTING ATTORNEY DRUGS OF ABUSE SCREEN, URINE WITHOUT CONFIRMATION STAT 05/25/2024 10:06 PM DEPUTY PROSECUTING ATTORNEY URINALYSIS AND REFLEX TO MICROSCOPIC AND CULTURE STAT 05/25/2024 10:06 PM DEPUTY PROSECUTING ATTORNEY EGFR STAT 05/25/2024 5:37 PM DEPUTY PROSECUTING ATTORNEY DIFFERENTIAL AUTO STAT 05/25/2024 5:3 7 PM DEPUTY PROSECUTING ATTORNEY ETHANOL STAT 05/25/2024 5:37 PM DEPUTY PROSECUTING ATTORNEY THYROID FUNCTION CASCADE STAT 05/25/2024 5:37 PM DEPUTY PROSECUTING ATTORNEY BASIC METABOLIC PANEL STAT 05/25/2024 5:37 PM DEPUTY PROSECUTING ATTORNEY CBC WITH AUTO DIFFERENTIAL STAT 05/25/2024 5:37 PM DEPUTY PROSECUTING ATTORNEY VALPROIC ACID LEVEL, TOTAL STAT 05/25/2024 5:37 PM DEPUTY PROSECUTING ATTORNEY CARBAMAZEPINE LEVEL, TOTAL STAT 05/25/2024 5:37 PM DEPUTY PROSECUTING ATTORNEY DRUGS OF ABUSE SCREEN, URINE WITH REFLEX CONFIRMATION Routine 05/19/2024 9:28 AM DEPUTY PROSECUTING ATTORNEY EGFR Routine 05/19/2024 4:58 AM DEPUTY PROSECUTING ATTORNEY DIFFERENTIAL AUTO Routine 05/19/2024 4:5 8 AM DEPUTY PROSECUTING ATTORNEY COMPREHENSIVE METABOLIC PANEL Routine 05/19/2024 4:58 AM DEPUTY PROSECUTING ATTORNEY CBC WITH AUTO DIFFERENTIAL Routine 05/19/2024 4:58 AM DEPUTY PROSECUTING ATTORNEY EGFR Routine 05/18/2024 4:54 AM DEPUTY PROSECUTING ATTORNEY DIFFERENTIAL AUTO Routine 05/18/2024 4:5 4 AM DEPUTY PROSECUTING ATTORNEY COMPREHENSIVE METABOLIC PANEL Routine 05/18/2024 4:54 AM DEPUTY PROSECUTING ATTORNEY CBC WITH AUTO DIFFERENTIAL Routine 05/18/2024 4:54 AM DEPUTY PROSECUTING ATTORNEY EGFR Routine 05/17/2024 4:30 AM DEPUTY PROSECUTING ATTORNEY DIFFERENTIAL AUTO Routine 05/17/2024 4:3 0 AM DEPUTY PROSECUTING ATTORNEY COMPREHENSIVE METABOLIC PANEL Routine 05/17/2024 4:30 AM DEPUTY PROSECUTING ATTORNEY CBC WITH AUTO DIFFERENTIAL Routine 05/17/2024 4:30 AM DEPUTY PROSECUTING ATTORNEY EGFR Routine 05/16/2024 5:18 AM DEPUTY PROSECUTING ATTORNEY DIFFERENTIAL AUTO Routine 05/16/2024 5:1 8 AM DEPUTY PROSECUTING ATTORNEY VANCOMYCIN LEVEL TROUGH Timed 05/16/2024 5:18 AM DEPUTY PROSECUTING ATTORNEY COMPREHENSIVE METABOLIC PANEL Routine 05/16/2024 5:18 AM DEPUTY PROSECUTING ATTORNEY CBC WITH AUTO DIFFERENTIAL Routine 05/16/2024 5:18 AM DEPUTY PROSECUTING ATTORNEY EGFR Routine 05/15/2024 4:41 AM DEPUTY PROSECUTING ATTORNEY DIFFERENTIAL AUTO Routine 05/15/2024 4:4 1 AM DEPUTY PROSECUTING ATTORNEY VANCOMYCIN LEVEL TROUGH Timed 05/15/2024 4:41 AM DEPUTY PROSECUTING ATTORNEY COMPREHENSIVE METABOLIC PANEL Routine 05/15/2024 4:41 AM DEPUTY PROSECUTING ATTORNEY CBC WITH AUTO DIFFERENTIAL Routine 05/15/2024 4:41 AM DEPUTY PROSECUTING ATTORNEY BLOOD CULTURE Routine 05/14/2024 11:29 PM DEPUTY PROSECUTING ATTORNEY BLOOD CULTURE Routine 05/14/2024 11:29 PM DEPUTY PROSECUTING ATTORNEY EGFR Routine 05/14/2024 5:08 AM DEPUTY PROSECUTING ATTORNEY DIFFERENTIAL AUTO Routine 05/14/2024 5:0 8 AM DEPUTY PROSECUTING ATTORNEY COMPREHENSIVE METABOLIC PANEL Routine 05/14/2024 5:08 AM DEPUTY PROSECUTING ATTORNEY CBC WITH AUTO DIFFERENTIAL Routine 05/14/2024 5:08 AM DEPUTY PROSECUTING ATTORNEY VANCOMYCIN LEVEL TROUGH STAT 05/13/2024 4:15 PM DEPUTY PROSECUTING ATTORNEY EGFR Routine 05/13/2024 6:14 AM DEPUTY PROSECUTING ATTORNEY DIFFERENTIAL AUTO Routine 05/13/2024 6:1 4 AM DEPUTY PROSECUTING ATTORNEY COMPREHENSIVE METABOLIC PANEL Routine 05/13/2024 6:14 AM DEPUTY PROSECUTING ATTORNEY CBC WITH AUTO DIFFERENTIAL Routine 05/13/2024 6:14 AM DEPUTY PROSECUTING ATTORNEY VALPROIC ACID LEVEL, TOTAL Routine 05/13/2024 6:14 AM DEPUTY PROSECUTING ATTORNEY CARBAMAZEPINE LEVEL, TOTAL Routine 05/13/2024 6:14 AM DEPUTY PROSECUTING ATTORNEY B CHECK SAMPLE STAT 05/12/2024 12:27 PM DEPUTY PROSECUTING ATTORNEY AEROBIC AND ANAEROBIC CULTURE AND GRAM STAIN Routine 05/12/2024 12:27 PM DEPUTY PROSECUTING ATTORNEY SURGICAL PATHOLOGY Routine 05/12/2024 12 :00 PM DEPUTY PROSECUTING ATTORNEY TYPE AND SCREEN STAT 05/12/2024 9:30 AM DEPUTY PROSECUTING ATTORNEY XR HAND LEFT 3 OR MORE VIEWS ED 05/12/2024 6:27 AM DEPUTY PROSECUTING ATTORNEY EGFR STAT 05/12/2024 6:05 AM DEPUTY PROSECUTING ATTORNEY DIFFERENTIAL AUTO STAT 05/12/2024 6:0 5 AM DEPUTY PROSECUTING ATTORNEY CRP (ACUTE PHASE) STAT 05/12/2024 6:0 5 AM DEPUTY PROSECUTING ATTORNEY ERYTHROCYTE SEDIMENTATION RATE STAT 05/12/2024 6:05 AM DEPUTY PROSECUTING ATTORNEY COMPREHENSIVE METABOLIC PANEL STAT 05/12/2024 6:05 AM DEPUTY PROSECUTING ATTORNEY CBC WITH AUTO DIFFERENTIAL STAT 05/12/2024 6:05 AM DEPUTY PROSECUTING ATTORNEY BLOOD CULTURE STAT 05/12/2024 6:05 AM DEPUTY PROSECUTING ATTORNEY BLOOD CULTURE STAT 05/12/2024 6:05 AM DEPUTY PROSECUTING ATTORNEY XR FINGER 2ND INDEX LEFT ED 04/30/2024 2:29 PM DEPUTY PROSECUTING ATTORNEY HEPATITIS PANEL, ACUTE Routine 0 1:01 PM CDT from Last 3 Months or Most Recently Relevant to Health Maintenance Results * Urinalysis reflex to microscopic (06/20/2024 11:42 AM DEPUTY PROSECUTING ATTORNEY) Color, ur Straw Yellow Clarity, ur Clear Clear [facility] Specific gravity, ur 1.009 1.003 - 1.030 [facility] pH, urine 7.0 [facility] Comment: Interpretive Data ? Urine pH is affected by diet, medications, systemic acid-base disturbances, and renal tubular function. ??pH may affect urinary stone formation. ??For example, urine pH below 6.0 may help reduce the tendency for calcium phosphate stones and pH greater than 6.0 may reduce the tendency for uric acid stone formation. Source: [facility] Current Interpretive Data was last revised on 2017 Protein, ur ql Negative Negative [facility] Glucose, ur ql Negative Negative [facility] Ketones, ur Negative Negative [facility] Bilirubin, ur Negative Negative [facility] Blood, ur Negative Negative [facility] Urobilinogen, ur <2.0 <2.0 mg/dL [facility] Nitrite, ur Negative Negative [facility] Leukocyte esterase, ur Negative Negative [facility] UA reflex comment Reflex conditions for microscopic UA not met. [facility] Urine 06/20/2024 11:4 2 AM DEPUTY PROSECUTING ATTORNEY 06/20/2024 12:46 PM DEPUTY PROSECUTING ATTORNEY Jyotsna Moralez MD LAB URINE ORDERABLES Final Result [facility] Department [place] [address] * (ABNORMAL) Drugs of Abuse Screen, Urine without Confirmation (06/20/2024 11:42 AM DEPUTY PROSECUTING ATTORNEY) Amphetamine, ur Not Detected CutOff 500ng/mL Comment: Interpretive Data - Amphetamines: ??Samples containing greater than 500 ng/mL d-methamphetamine ??or other cross-reacting amphetamine compounds are reported as positive. ??Amphetamine immunoassays are subject to significant false positive rates due to cross-reactivity of non-amphetamine drugs. Confirmatory testing required for definitive results. Current Interpretive Data was last reviewed 2023. Barbiturates, ur Not Detected CutOff 200ng/mL [facility] Comment: Interpretive Data - Barbiturates: ??Samples containing greater than 200 ng/mL secobarbital or other cross-reacting barbiturate compounds are reported as positive. ??False positive and false negative results are possible. Confirmatory testing required for definitive results. Current Interpretive Data was last reviewed 2023. Benzodiazepines, ur Not Detected CutOff 100ng/mL [facility] Comment: Interpretive Data - Benzodiazepines: ??Samples containing greater than 100 ng/mL nordiazepam or other cross-reacting compounds are reported as positive. False positive and false negative results are possible. Confirmatory testing required for definitive results. Current Interpretive Data was last reviewed 2023. Cannabinoids, ur Screen Positive, presumptive (A) CutOff 50 ng/mL [facility] Comment: Interpretive Data - Cannabinoids: ??Samples containing greater than 50 ng/mL delta-9 THC -COOH or other cross-reacting compounds are reported as positive. ??False positive and false negative results are possible. ??Confirmatory testing required for definitive results. Current Interpretive Data was last reviewed 2023. Cocaine, ur Not Detected CutOff 150ng/mL [facility] Comment: Interpretive Data - Cocaine: ??Samples containing greater than 150 ng/mL benzoylecgonine or other cross-reacting compounds are reported as positive. False positive and false negative results are possible. Confirmatory testing required for definitive results. Current Interpretive Data was last reviewed 2023. Fentanyl, Ur Not Detected CutOff 5 ng/mL [facility] Comment: Interpretive Data - Fentanyl: ?? Samples containing greater than 5 ng/mL norfentanyl, fentanyl, or other cross-reacting fentanyl compounds are reported as positive. False positive and false negative results are possible. Confirmatory testing required for definitive results. Current Interpretive Data was last reviewed 2023. Methadone, ur Not Detected CutOff 300ng/mL [facility] Comment: Interpretive Data - Methadone: ??Samples containing greater than 300 ng/mL d,l-methadone or other cross-reacting compounds are reported as positive. ??False positive and false negative results are possible. Confirmatory testing required for definitive results. Current Interpretive Data was last reviewed 2023. Opiates, ur Not Detected CutOff 300ng/mL [facility] Comment: Interpretive Data - Opiates: ??Samples containing greater than 300 ng/mL morphine or other cross-reacting compounds are reported as positive. ??False positive and false negative results are possible. Confirmatory testing required for definitive results. Current Interpretive Data was last reviewed 2023. Oxycodone, ur Not Detected CutOff 100ng/mL [facility] Comment: Interpretive Data - Oxycodone: ??Samples containing greater than 100 ng/mL oxycodone or other cross-reacting compounds are reported as ??positive. ??False positive and false negative results are possible. Confirmatory testing required for definitive results. Current Interpretive Data was last reviewed 2023. Phencyclidine, ur Not Detected CutOff 25 ng/mL [facility] Comment: Interpretive Data - Phencyclidine: ??Samples containing greater than 25 ng/mL phencyclidine or other cross-reacting compounds are reported as positive. ??False positive and false negative results are possible. Confirmatory testing required for definitive results. Current Interpretive Data was last reviewed 2023. Urine Creatinine 37 mg/dL [facility] Comment: Interpretive Data Urine Creatinine: < 10 mg/dL is extremely dilute = or > 10 but < 20 mg/dL is dilute = or > 20 mg/dL is normal Current Interpretive Data was last revised on 2017. Urine 06/20/2024 11:4 2 AM DEPUTY PROSECUTING ATTORNEY 06/20/2024 12:46 PM DEPUTY PROSECUTING ATTORNEY Narrative [facility] - 06/20/2024 1:25 PM DEPUTY PROSECUTING ATTORNEY Drug of Abuse screening is performed by immunoassay for medical purposes only. ??This is not to be used for Pain Management purposes. us Jyotsna Moralez MD LAB URINE ORDERABLES Final Result [facility] [place] [address] * eGFR (06/20/2024 9:16 AM DEPUTY PROSECUTING ATTORNEY) Pathologist [facility] eGFR >90 >=60 mL/min/1. 73 m2 Comment: [...] last reviewed 2021. Blood 06/20/2024 9:16 AM DEPUTY PROSECUTING ATTORNEY 06/20/2024 9:54 AM DEPUTY PROSECUTING ATTORNEY us Jyotsna Moralez MD LAB BLOOD ORDERABLES Final Result [facility] [place] [address] * Differential, auto (06/20/2024 9:16 AM DEPUTY PROSECUTING ATTORNEY) Pathologist [facility] Neutrophil abs 5.3 1.5 - 6.5 K/cumm Imm gran abs 0.0 0.0 - 0.1 K/cumm [facility] Lymphocyte abs 2.8 0.8 - 3.3 K/cumm [facility] Monocyte abs 0.6 0.2 - 0.8 K/cumm [facility] Eosinophil abs 0.2 0.0 - 0.5 K/cumm [facility] Basophil abs 0.1 0.0 - 0.1 K/cumm [facility] Neutrophil pct 58.8 % [facility] Comment: Interpretive Data Percent cell count reference ranges are not reported, since discordance with absolute values may lead to misinterpretation of CBC data. Current Interpretive Data was last revised on 2017. Imm gran pct 0.4 % [facility] Comment: Interpretive Data Percent cell count reference ranges are not reported, since discordance with absolute values may lead to misinterpretation of CBC data. Current Interpretive Data was last revised on 2017. Lymphocyte pct 31.7 % [facility] Comment: Interpretive Data Percent cell count reference ranges are not reported, since discordance with absolute values may lead to misinterpretation of CBC data. Current Interpretive Data was last revised on 2017. Monocyte pct 6.1 % [facility] Comment: Interpretive Data Percent cell count reference ranges are not reported, since discordance with absolute values may lead to misinterpretation of CBC data. Current Interpretive Data was last revised on 2017. Eosinophil pct 2.3 % [facility] Comment: Interpretive Data Percent cell count reference ranges are not reported, since discordance with absolute values may lead to misinterpretation of CBC data. Current Interpretive Data was last revised on 2017. Basophil pct 0.7 % [facility] Comment: Interpretive Data Percent cell count reference ranges are not reported, since discordance with absolute values may lead to misinterpretation of CBC data. Current Interpretive Data was last revised on 2017. Blood 06/20/2024 9:16 AM DEPUTY PROSECUTING ATTORNEY 06/20/2024 9:46 AM DEPUTY PROSECUTING ATTORNEY Jyotsna Moralez MD LAB BLOOD ORDERABLES Final Result Performing Organization Address [facility] Co de Phone Number [facility] [place] [address] * Thyroid Function [place] (06/20/2024 9:16 AM DEPUTY PROSECUTING ATTORNEY) TSH 0.91 0.30 - 4.20 mcIUnit/mL Blood 06/20/2024 9:16 AM DEPUTY PROSECUTING ATTORNEY 06/20/2024 9:46 AM DEPUTY PROSECUTING ATTORNEY Jyotsna Moralez MD LAB BLOOD ORDERABLES Final Result Performing Organization Address [facility]/ZIP Co de Phone Number [facility] Department of Laboratories [place], [place] [id number] * CBC with auto differential (06/20/2024 9:16 AM DEPUTY PROSECUTING ATTORNEY) Pathologist [facility] WBC 9.0 3.8 - 9.9 K/cumm Hgb 13.3 13.0 - 17.5 g/dL [facility] Hct 39.6 38.9 - 50.3 % [facility] Plt 380 150 - 400 K/cumm [facility] MPV 9.6 9.1 - 12.3 fL [facility] RBC 4.39 4.30 - 5.80 M/cumm [facility] MCV 90.2 81.3 - 96.4 fL [facility] MCH 30.3 27.1 - 33.3 pg [facility] MCHC 33.6 32.3 - 35.7 g/dL [facility] RDW CV 12.1 11.1 - 14.9 % [facility] RDW SD 40.0 35.7 - 48.1 fL [facility] NRBC abs 0.00 0.00 - 0.01 K/cumm [facility] Blood (Blood, Venous) 06/20/2024 9:16 AM DEPUTY PROSECUTING ATTORNEY 06/20/2024 9:46 AM DEPUTY PROSECUTING ATTORNEY us Jyotsna Moralez MD LAB BLOOD ORDERABLES Final Result [facility] [place] [address] * Ethanol (06/20/2024 9:16 AM DEPUTY PROSECUTING ATTORNEY) Pathologist [facility] Ethanol <10 <=10 mg/dL Comment: Interpretive Data Legal limit of intoxication > or = 80 mg/dL Levels > or = 400 mg/dL are potentially TOXIC. Current interpretive data was last revised on 2018. Blood 06/20/2024 9:16 AM DEPUTY PROSECUTING ATTORNEY 06/20/2024 9:46 AM DEPUTY PROSECUTING ATTORNEY us Jyotsna Moralez MD LAB BLOOD ORDERABLES Final Result [facility] [place] [address] * (ABNORMAL) Valproic acid level, total (06/20/2024 9:16 AM DEPUTY PROSECUTING ATTORNEY) Valproic Acid <15.0(L) 50.0 - 100.0 mcg/mL Comment: Interpretive Data Therapeutic or toxic effects of anticonvulsant drugs may occur at different concentrations in different patients and the correlation between dose and clinical effect must be evaluated individually. Current interpretative data was last revised on 13. Blood 06/20/2024 9:16 AM DEPUTY PROSECUTING ATTORNEY 06/20/2024 9:54 AM DEPUTY PROSECUTING ATTORNEY us Jyotsna Moralez MD LAB BLOOD ORDERABLES Final Result [facility] [place] [address] * (ABNORMAL) Comprehensive metabolic panel (06/20/2024 9:16 AM DEPUTY PROSECUTING ATTORNEY) Pathologist [facility] Sodium 139 135 - 145 mmol/L Potassium, pl 4.4 3.3 - 4.9 mmol/L [facility] Chloride 101 97 - 110 mmol/L [facility] CO2 29 22 - 32 mmol/L [facility] Anion gap 9 2 - 15 mmol/L [facility] BUN 10 6 - 25 mg/dL [facility] Creatinine 0.67(L) 0.80 - 1.30 mg/dL [facility] Glucose 88 70 - 199 mg/dL [facility] Comment: Interpretive Data Fasting glucose >/= 126 [...] 2022. Calcium 10.2 8.5 - 10.3 mg/dL [facility] Bilirubin, total 0.5 0.1 - 1.2 mg/dL [facility] Protein, pl 7.6 6.5 - 8.5 g/dL [facility] Albumin 4.7 3.5 - 5.0 g/dL [facility] Alk phos 84 40 - 130 Units/L [facility] ALT 28 7 - 55 Units/L [facility] AST 38 10 - 50 Units/L [facility] Blood 06/20/2024 9:16 AM DEPUTY PROSECUTING ATTORNEY 06/20/2024 9:46 AM DEPUTY PROSECUTING ATTORNEY us Jyotsna Moralez MD LAB BLOOD ORDERABLES Final Result [facility] [place] [address] * POCT Rapid HIV Antibody Community Screening-Conor Eligible (05/29/2024 4:17 AM DEPUTY PROSECUTING ATTORNEY) [facility] Rapid HIV, POC Negative Negative QC Control Line Acceptable Blood 05/29/2024 4:17 AM DEPUTY PROSECUTING ATTORNEY us Montrell Mir MD POINT OF CARE TEST ORDERAB LES Final Result * XR Hand Left 3+ views (05/29/2024 3:38 AM DEPUTY PROSECUTING ATTORNEY) Anatomical Region Laterality Modality Upper Extremities, Hand Left Computed Radiography 05/29/2024 3:41 AM DEPUTY PROSECUTING ATTORNEY Impressions 05/29/2024 7:26 AM DEPUTY PROSECUTING ATTORNEY The current study is compared with the [...] Junior Caldwell M.D. Narrative 05/29/2024 7:26 AM DEPUTY PROSECUTING ATTORNEY EXAMINATION: XR HAND LEFT 3 OR MORE [...] Result * Critical Care (05/26/2024 5:15 PM DEPUTY PROSECUTING ATTORNEY) Narrative Ethan Dewitt MD - 05/26/2024 5:15 PM DEPUTY PROSECUTING ATTORNEY Ethan Dewitt MD ? 05/26/2024 ??5:17 PM [...] microscopic and culture Urine (05/25/2024 10:06 PM DEPUTY PROSECUTING ATTORNEY) Color, ur Yellow Yellow Clarity, ur Clear Clear [facility] Specific gravity, ur 1.036(H) 1.003 - 1.030 [facility] pH, urine 6.5 [facility] Comment: Interpretive Data ? Urine pH is affected by diet, medications, systemic acid-base disturbances, and renal tubular function. ??pH may affect urinary stone formation. ??For example, urine pH below 6.0 may help reduce the tendency for calcium phosphate stones and pH greater than 6.0 may reduce the tendency for uric acid stone formation. Source: [facility] [employer] Current Interpretive Data was last revised on 2017 Protein, ur ql 1+(A) Negative [facility] Glucose, ur ql Negative Negative [facility] Ketones, ur Trace Negative [facility] Bilirubin, ur Negative Negative [facility] Blood, ur Negative Negative [facility] Urobilinogen, ur <2.0 <2.0 mg/dL [facility] Nitrite, ur Negative Negative [facility] Leukocyte esterase, ur Negative Negative [facility] UA reflex comment Reflex to microscopic UA will be performed. [facility] Urine 05/25/2024 10:0 6 PM DEPUTY PROSECUTING ATTORNEY 05/25/2024 10:08 PM DEPUTY PROSECUTING ATTORNEY us Maria Guadalupe Hein NP LAB MICROBIOLOGY - GENERAL ORDERABLES Final Result [facility] [place] [address] * (ABNORMAL) Drugs of Abuse Screen, Urine without Confirmation (05/25/2024 10:06 PM DEPUTY PROSECUTING ATTORNEY) [facility] Amphetamine, ur Not Detected CutOff 500ng/mL Comment: Interpretive Data - Amphetamines: ??Samples containing greater than 500 ng/mL d-methamphetamine ??or other cross-reacting amphetamine compounds are reported as positive. ??Amphetamine immunoassays are subject to significant false positive rates due to cross-reactivity of non-amphetamine drugs. Confirmatory testing required for definitive results. Current Interpretive Data was last reviewed 2023. Barbiturates, ur Not Detected CutOff 200ng/mL [facility] Comment: Interpretive Data - Barbiturates: ??Samples containing greater than 200 ng/mL secobarbital or other cross-reacting barbiturate compounds are reported as positive. ??False positive and false negative results are possible. Confirmatory testing required for definitive results. Current Interpretive Data was last reviewed 2023. Benzodiazepines, ur Not Detected CutOff 100ng/mL [facility] Comment: Interpretive Data - Benzodiazepines: ??Samples containing greater than 100 ng/mL nordiazepam or other cross-reacting compounds are reported as positive. False positive and false negative results are possible. Confirmatory testing required for definitive results. Current Interpretive Data was last reviewed 2023. Cannabinoids, ur Screen Positive, presumptive (A) CutOff 50 ng/mL [facility] Comment: Interpretive Data - Cannabinoids: ??Samples containing greater than 50 ng/mL delta-9 THC -COOH or other cross-reacting compounds are reported as positive. ??False positive and false negative results are possible. ??Confirmatory testing required for definitive results. Current Interpretive Data was last reviewed 2023. Cocaine, ur Not Detected CutOff 150ng/mL [facility] Comment: Interpretive Data - Cocaine: ??Samples containing greater than 150 ng/mL benzoylecgonine or other cross-reacting compounds are reported as positive. False positive and false negative results are possible. Confirmatory testing required for definitive results. Current Interpretive Data was last reviewed 2023. Fentanyl, Ur Not Detected CutOff 5 ng/mL [facility] Comment: Interpretive Data - Fentanyl: ?? Samples containing greater than 5 ng/mL norfentanyl, fentanyl, or other cross-reacting fentanyl compounds are reported as positive. False positive and false negative results are possible. Confirmatory testing required for definitive results. Current Interpretive Data was last reviewed 2023. Methadone, ur Not Detected CutOff 300ng/mL [facility] Comment: Interpretive Data - Methadone: ??Samples containing greater than 300 ng/mL d,l-methadone or other cross-reacting compounds are reported as positive. ??False positive and false negative results are possible. Confirmatory testing required for definitive results. Current Interpretive Data was last reviewed 2023. Opiates, ur Not Detected CutOff 300ng/mL [facility] Comment: Interpretive Data - Opiates: ??Samples containing greater than 300 ng/mL morphine or other cross-reacting compounds are reported as positive. ??False positive and false negative results are possible. Confirmatory testing required for definitive results. Current Interpretive Data was last reviewed 2023. Oxycodone, ur Not Detected CutOff 100ng/mL [facility] Comment: Interpretive Data - Oxycodone: ??Samples containing greater than 100 ng/mL oxycodone or other cross-reacting compounds are reported as ??positive. ??False positive and false negative results are possible. Confirmatory testing required for definitive results. Current Interpretive Data was last reviewed 2023. Phencyclidine, ur Not Detected CutOff 25 ng/mL [facility] Comment: Interpretive Data - Phencyclidine: ??Samples containing greater than 25 ng/mL phencyclidine or other cross-reacting compounds are reported as positive. ??False positive and false negative results are possible. Confirmatory testing required for definitive results. Current Interpretive Data was last reviewed 2023. Urine Creatinine 296 mg/dL [facility] Comment: Interpretive Data Urine Creatinine: < 10 mg/dL is extremely dilute = or > 10 but < 20 mg/dL is dilute = or > 20 mg/dL is normal Current Interpretive Data was last revised on 2017. Urine 05/25/2024 10:0 6 PM DEPUTY PROSECUTING ATTORNEY 05/25/2024 10:16 PM DEPUTY PROSECUTING ATTORNEY Narrative [facility] - 05/25/2024 10:49 PM DEPUTY PROSECUTING ATTORNEY Drug of Abuse screening is performed by immunoassay for medical purposes only. ??This is not to be used for Pain Management purposes. Maria Guadalupe Josefa Melvina TRIM LINE WORKER LAB URINE ORDERABLES Final Result Performing Organization Address [facility] de Phone Number [facility] [place] [address] * (ABNORMAL) Urinalysis, microscopic only (05/25/2024 10:06 PM DEPUTY PROSECUTING ATTORNEY) WBC, ur 0-5 0 - 5 /HPF RBC, ur 0-2 0 - 2 /HPF [facility] Bacteria, ur Trace(A) [facility] Mucous, ur Present(A) [facility] Culture Reflex Comment Reflex conditions for urine culture (WBC >10) not met. [facility] Urine 05/25/2024 10:0 6 PM DEPUTY PROSECUTING ATTORNEY 05/25/2024 10:08 PM DEPUTY PROSECUTING ATTORNEY Maria Guadalupe Hein TRIM LINE WORKER LAB URINE ORDERABLES Final Result Performing Organization Address [facility] de Phone Number [facility] [place] [address] * eGFR (05/25/2024 5:37 PM DEPUTY PROSECUTING ATTORNEY) eGFR >90 >=60 mL/min/1. 73 m2 Comment: [...] last reviewed 2021. Blood 05/25/2024 5:37 PM DEPUTY PROSECUTING ATTORNEY 05/25/2024 6:06 PM DEPUTY PROSECUTING ATTORNEY Maria Guadalupe Hein NP LAB BLOOD ORDERABLES Final Result [facility] [place] [address] * (ABNORMAL) Differential, auto (05/25/2024 5:37 PM DEPUTY PROSECUTING ATTORNEY) Neutrophil abs 7.9(H) 1.5 - 6.5 K/cumm Imm gran abs 0.0 0.0 - 0.1 K/cumm [facility] Lymphocyte abs 3.6(H) 0.8 - 3.3 K/cumm [facility] Monocyte abs 1.4(H) 0.2 - 0.8 K/cumm [facility] Eosinophil abs 0.1 0.0 - 0.5 K/cumm [facility] Basophil abs 0.1 0.0 - 0.1 K/cumm [facility] Neutrophil pct 60.3 % [facility] Comment: Interpretive Data Percent cell count reference ranges are not reported, since discordance with absolute values may lead to misinterpretation of CBC data. Current Interpretive Data was last revised on 2017. Imm gran pct 0.3 % [facility] Comment: Interpretive Data Percent cell count reference ranges are not reported, since discordance with absolute values may lead to misinterpretation of CBC data. Current Interpretive Data was last revised on 2017. Lymphocyte pct 27.6 % [facility] Comment: Interpretive Data Percent cell count reference ranges are not reported, since discordance with absolute values may lead to misinterpretation of CBC data. Current Interpretive Data was last revised on 2017. Monocyte pct 10.6 % [facility] Comment: Interpretive Data Percent cell count reference ranges are not reported, since discordance with absolute values may lead to misinterpretation of CBC data. Current Interpretive Data was last revised on 2017. Eosinophil pct 0.5 % [facility] Comment: Interpretive Data Percent cell count reference ranges are not reported, since discordance with absolute values may lead to misinterpretation of CBC data. Current Interpretive Data was last revised on 2017. Basophil pct 0.7 % [facility] Comment: Interpretive Data Percent cell count reference ranges are not reported, since discordance with absolute values may lead to misinterpretation of CBC data. Current Interpretive Data was last revised on 2017. Blood 05/25/2024 5:37 PM DEPUTY PROSECUTING ATTORNEY 05/25/2024 6:06 PM DEPUTY PROSECUTING ATTORNEY Maria Guadalupe Hein TRIM LINE WORKER LAB BLOOD ORDERABLES Final Result Performing Organization Address [facility] de Phone Number [facility] [place] [address] * Thyroid Function [place] (05/25/2024 5:37 PM DEPUTY PROSECUTING ATTORNEY) [facility] TSH 0.67 0.30 - 4.20 mcIUnit/mL Blood 05/25/2024 5:37 PM DEPUTY PROSECUTING ATTORNEY 05/25/2024 6:06 PM DEPUTY PROSECUTING ATTORNEY Maria Guadalupe Hein TRIM LINE WORKER LAB BLOOD ORDERABLES Final Result Performing Organization Address [facility] de Phone Number [facility] Department [place] [address] * (ABNORMAL) CBC with auto differential (05/25/2024 5:37 PM DEPUTY PROSECUTING ATTORNEY) Pathologist [facility] WBC 13.1(H) 3.8 - 9.9 K/cumm Hgb 12.2(L) 13.0 - 17.5 g/dL [facility] Hct 35.2(L) 38.9 - 50.3 % [facility] Plt 413(H) 150 - 400 K/cumm [facility] MPV 10.1 9.1 - 12.3 fL [facility] RBC 4.07(L) 4.30 - 5.80 M/cumm [facility] MCV 86.5 81.3 - 96.4 fL [facility] MCH 30.0 27.1 - 33.3 pg [facility] MCHC 34.7 32.3 - 35.7 g/dL [facility] RDW CV 12.2 11.1 - 14.9 % [facility] RDW SD 38.2 35.7 - 48.1 fL [facility] NRBC abs 0.00 0.00 - 0.01 K/cumm [facility] Blood 05/25/2024 5:37 PM DEPUTY PROSECUTING ATTORNEY 05/25/2024 6:06 PM DEPUTY PROSECUTING ATTORNEY Maria Guadalupe Hein TRIM LINE WORKER LAB BLOOD ORDERABLES Final Result Performing Organization Address [facility] de Phone Number [facility] [place] [address] * Ethanol (05/25/2024 5:37 PM DEPUTY PROSECUTING ATTORNEY) Ethanol <10 <=10 mg/dL Comment: Interpretive Data Legal limit of intoxication > or = 80 mg/dL Levels > or = 400 mg/dL are potentially TOXIC. Current interpretive data was last revised on 2018. Blood 05/25/2024 5:37 PM DEPUTY PROSECUTING ATTORNEY 05/25/2024 6:06 PM DEPUTY PROSECUTING ATTORNEY Maria Guadalupe Hein TRIM LINE WORKER LAB BLOOD ORDERABLES Final Result Performing Organization Address [facility] de Phone Number [facility] [place] [address] * (ABNORMAL) Valproic acid level, total (05/25/2024 5:37 PM DEPUTY PROSECUTING ATTORNEY) Valproic Acid <15.0(L) 50.0 - 100.0 mcg/mL Comment: Interpretive Data Therapeutic or toxic effects of anticonvulsant drugs may occur at different concentrations in different patients and the correlation between dose and clinical effect must be evaluated individually. Current interpretative data was last revised on 13. Blood 05/25/2024 5:37 PM DEPUTY PROSECUTING ATTORNEY 05/25/2024 6:06 PM DEPUTY PROSECUTING ATTORNEY Maria Guadalupe Hein TRIM LINE WORKER LAB BLOOD ORDERABLES Final Result Performing Organization Address [facility] de Phone Number [facility] [place] [address] * (ABNORMAL) Carbamazepine level, total (05/25/2024 5:37 PM DEPUTY PROSECUTING ATTORNEY) Pathologist [facility] Carbamazepine <3.0(L) 4.0 - 12.0 mcg/mL Comment: Interpretive Data Therapeutic or Toxic effect of anticonvulsant drugs may occur at different concentrations in different patients and the correlation between dose and clinical effect must be evaluated individually. Current interpretive data was last revised on 13. Blood 05/25/2024 5:37 PM DEPUTY PROSECUTING ATTORNEY 05/25/2024 6:06 PM DEPUTY PROSECUTING ATTORNEY Maria Guadalupe Hein TRIM LINE WORKER LAB BLOOD ORDERABLES Final Result Performing Organization Address [facility] Phone Number [facility] [place] [address] * Basic metabolic panel (05/25/2024 5:37 PM DEPUTY PROSECUTING ATTORNEY) Sodium 136 135 - 145 mmol/L Potassium, pl 3.8 3.3 - 4.9 mmol/L [facility] Chloride 100 97 - 110 mmol/L [facility] CO2 25 22 - 32 mmol/L [facility] Anion gap 11 2 - 15 mmol/L [facility] BUN 20 6 - 25 mg/dL [facility] Creatinine 0.82 0.80 - 1.30 mg/dL [facility] Glucose 119 70 - 199 mg/dL [facility] Comment: Interpretive Data Fasting glucose >/= 126 [...] 2022. Calcium 9.8 8.5 - 10.3 mg/dL [facility] Blood 05/25/2024 5:37 PM DEPUTY PROSECUTING ATTORNEY 05/25/2024 6:06 PM DEPUTY PROSECUTING ATTORNEY us Maria Guadalupe Hein NP LAB BLOOD ORDERABLES Final Result [facility] [place] [address] * (ABNORMAL) Drugs of Abuse Screen, Urine with Reflex Confirmation (05/19/2024 9:28 AM DEPUTY PROSECUTING ATTORNEY) Pathologist [facility] Amphetamine, ur Not Detected CutOff 500ng/mL Comment: Interpretive Data - Amphetamines: ??Samples containing greater than 500 ng/mL d-methamphetamine ??or other cross-reacting amphetamine compounds are reported as positive. ??Amphetamine immunoassays are subject to significant false positive rates due to cross-reactivity of non-amphetamine drugs. Confirmatory testing required for definitive results. Current Interpretive Data was last reviewed 2023. Barbiturates, ur Not Detected CutOff 200ng/mL [facility] Comment: Interpretive Data - Barbiturates: ??Samples containing greater than 200 ng/mL secobarbital or other cross-reacting barbiturate compounds are reported as positive. ??False positive and false negative results are possible. Confirmatory testing required for definitive results. Current Interpretive Data was last reviewed 2023. Benzodiazepines, ur Not Detected CutOff 100ng/mL [facility] Comment: Interpretive Data - Benzodiazepines: ??Samples containing greater than 100 ng/mL nordiazepam or other cross-reacting compounds are reported as positive. False positive and false negative results are possible. Confirmatory testing required for definitive results. Current Interpretive Data was last reviewed 2023. Cannabinoids, ur Screen Positive, presumptive (A) CutOff 50 ng/mL [facility] Comment: Interpretive Data - Cannabinoids: ??Samples containing greater than 50 ng/mL delta-9 THC -COOH or other cross-reacting compounds are reported as positive. ??False positive and false negative results are possible. ??Confirmatory testing required for definitive results. Current Interpretive Data was last reviewed 2023. Cocaine, ur Not Detected CutOff 150ng/mL [facility] Comment: Interpretive Data - Cocaine: ??Samples containing greater than 150 ng/mL benzoylecgonine or other cross-reacting compounds are reported as positive. False positive and false negative results are possible. Confirmatory testing required for definitive results. Current Interpretive Data was last reviewed 2023. Fentanyl, Ur Not Detected CutOff 5 ng/mL [facility] Comment: Interpretive Data - Fentanyl: ?? Samples containing greater than 5 ng/mL norfentanyl, fentanyl, or other cross-reacting fentanyl compounds are reported as positive. False positive and false negative results are possible. Confirmatory testing required for definitive results. Current Interpretive Data was last reviewed 2023. Methadone, ur Not Detected CutOff 300ng/mL [facility] Comment: Interpretive Data - Methadone: ??Samples containing greater than 300 ng/mL d,l-methadone or other cross-reacting compounds are reported as positive. ??False positive and false negative results are possible. Confirmatory testing required for definitive results. Current Interpretive Data was last reviewed 2023. Opiates, ur Not Detected CutOff 300ng/mL [facility] Comment: Interpretive Data - Opiates: ??Samples containing greater than 300 ng/mL morphine or other cross-reacting compounds are reported as positive. ??False positive and false negative results are possible. Confirmatory testing required for definitive results. Current Interpretive Data was last reviewed 2023. Oxycodone, ur Not Detected CutOff 100ng/mL [facility] Comment: Interpretive Data - Oxycodone: ??Samples containing greater than 100 ng/mL oxycodone or other cross-reacting compounds are reported as ??positive. ??False positive and false negative results are possible. Confirmatory testing required for definitive results. Current Interpretive Data was last reviewed 2023. Phencyclidine, ur Not Detected CutOff 25 ng/mL [facility] Comment: Interpretive Data - Phencyclidine: ??Samples [...] revised on 2017. Urine 05/19/2024 9:28 AM DEPUTY PROSECUTING ATTORNEY 05/19/2024 10:13 AM DEPUTY PROSECUTING ATTORNEY Narrative [facility] - 05/19/2024 10:44 AM DEPUTY PROSECUTING ATTORNEY Drug of Abuse screening is performed by immunoassay for medical purposes only. ??This is not to be used for Pain Management purposes. ??If Detected, confirmation testing will be performed for Amphetamines, Cocaine, Fentanyl, Methadone, Opiates, Oxycodone or Phencyclidine. us Radha Saleh MD LAB URINE ORDERABLES Final Resu lt [facility] [place] [address] * eGFR (05/19/2024 4:58 AM DEPUTY PROSECUTING ATTORNEY) eGFR >90 >=60 mL/min/1. 73 m2 Comment: [...] last reviewed 2021. Blood 05/19/2024 4:58 AM DEPUTY PROSECUTING ATTORNEY 05/19/2024 6:25 AM DEPUTY PROSECUTING ATTORNEY us Denise Gonzalez MD PhD LAB BLOOD ORDERABLES Final Result [facility] [place] [address] * Differential, auto (05/19/2024 4:58 AM DEPUTY PROSECUTING ATTORNEY) Neutrophil abs 4.7 1.5 - 6.5 K/cumm Imm gran abs 0.0 0.0 - 0.1 K/cumm [facility] Lymphocyte abs 3.0 0.8 - 3.3 K/cumm [facility] Monocyte abs 0.7 0.2 - 0.8 K/cumm [facility] Eosinophil abs 0.3 0.0 - 0.5 K/cumm [facility] Basophil abs 0.1 0.0 - 0.1 K/cumm [facility] Neutrophil pct 53.4 % [facility] Comment: Interpretive Data Percent cell count reference ranges are not reported, since discordance with absolute values may lead to misinterpretation of CBC data. Current Interpretive Data was last revised on 2017. Imm gran pct 0.3 % [facility] Comment: Interpretive Data Percent cell count reference ranges are not reported, since discordance with absolute values may lead to misinterpretation of CBC data. Current Interpretive Data was last revised on 2017. Lymphocyte pct 33.7 % [facility] Comment: Interpretive Data Percent cell count reference ranges are not reported, since discordance with absolute values may lead to misinterpretation of CBC data. Current Interpretive Data was last revised on 2017. Monocyte pct 8.0 % [facility] Comment: Interpretive Data Percent cell count reference ranges are not reported, since discordance with absolute values may lead to misinterpretation of CBC data. Current Interpretive Data was last revised on 2017. Eosinophil pct 3.4 % [facility] Comment: Interpretive Data Percent cell count reference ranges are not reported, since discordance with absolute values may lead to misinterpretation of CBC data. Current Interpretive Data was last revised on 2017. Basophil pct 1.2 % [facility] Comment: Interpretive Data Percent cell count reference ranges are not reported, since discordance with absolute values may lead to misinterpretation of CBC data. Current Interpretive Data was last revised on 2017. Blood 05/19/2024 4:58 AM DEPUTY PROSECUTING ATTORNEY 05/19/2024 6:25 AM DEPUTY PROSECUTING ATTORNEY us Denise Gonzalez MD PhD LAB BLOOD ORDERABLES Final Result [facility] [place] [address] * (ABNORMAL) CBC with auto differential (05/19/2024 4:58 AM DEPUTY PROSECUTING ATTORNEY) WBC 8.9 3.8 - 9.9 K/cumm Hgb 11.8(L) 13.0 - 17.5 g/dL [facility] Hct 35.3(L) 38.9 - 50.3 % [facility] Plt 348 150 - 400 K/cumm [facility] MPV 10.2 9.1 - 12.3 fL [facility] RBC 3.86(L) 4.30 - 5.80 M/cumm [facility] MCV 91.5 81.3 - 96.4 fL [facility] MCH 30.6 27.1 - 33.3 pg [facility] MCHC 33.4 32.3 - 35.7 g/dL [facility] RDW CV 12.2 11.1 - 14.9 % [facility] RDW SD 40.7 35.7 - 48.1 fL [facility] NRBC abs 0.00 0.00 - 0.01 K/cumm [facility] Blood 05/19/2024 4:58 AM DEPUTY PROSECUTING ATTORNEY 05/19/2024 6:25 AM DEPUTY PROSECUTING ATTORNEY us Denise Gonzalez MD PhD LAB BLOOD ORDERABLES Final Result [facility] [place] [address] * (ABNORMAL) Comprehensive metabolic panel (05/19/2024 4:58 AM DEPUTY PROSECUTING ATTORNEY) Sodium 140 135 - 145 mmol/L Potassium, pl 5.6(H) 3.3 - 4.9 mmol/L [facility] Chloride 102 97 - 110 mmol/L [facility] CO2 27 22 - 32 mmol/L [facility] Anion gap 11 2 - 15 mmol/L [facility] BUN 25 6 - 25 mg/dL [facility] Creatinine 0.93 0.80 - 1.30 mg/dL [facility] Glucose 107 70 - 199 mg/dL [facility] Comment: Interpretive Data Fasting glucose >/= 126 [...] 2022. Calcium 10.0 8.5 - 10.3 mg/dL [facility] Bilirubin, total <0.2 0.1 - 1.2 mg/dL [facility] Protein, pl 7.3 6.5 - 8.5 g/dL [facility] Albumin 4.4 3.5 - 5.0 g/dL [facility] Alk phos 63 40 - 130 Units/L [facility] ALT 71(H) 7 - 55 Units/L [facility] AST 54(H) 10 - 50 Units/L [facility] Blood 05/19/2024 4:58 AM DEPUTY PROSECUTING ATTORNEY 05/19/2024 6:25 AM DEPUTY PROSECUTING ATTORNEY us Denise Gonzalez MD PhD LAB BLOOD ORDERABLES Final Result [facility] [place] [address] * eGFR (05/18/2024 4:54 AM DEPUTY PROSECUTING ATTORNEY) eGFR >90 >=60 mL/min/1. 73 m2 Comment: [...] last reviewed 2021. Blood 05/18/2024 4:54 AM DEPUTY PROSECUTING ATTORNEY 05/18/2024 5:45 AM DEPUTY PROSECUTING ATTORNEY us Denise Gonzalez MD PhD LAB BLOOD ORDERABLES Final Result [facility] [place] [address] * (ABNORMAL) Differential, auto (05/18/2024 4:54 AM DEPUTY PROSECUTING ATTORNEY) Neutrophil abs 2.5 1.5 - 6.5 K/cumm Imm gran abs 0.0 0.0 - 0.1 K/cumm [facility] Lymphocyte abs 3.6(H) 0.8 - 3.3 K/cumm [facility] Monocyte abs 0.5 0.2 - 0.8 K/cumm [facility] Eosinophil abs 0.3 0.0 - 0.5 K/cumm [facility] Basophil abs 0.1 0.0 - 0.1 K/cumm [facility] Neutrophil pct 36.3 % [facility] Comment: Interpretive Data Percent cell count reference ranges are not reported, since discordance with absolute values may lead to misinterpretation of CBC data. Current Interpretive Data was last revised on 2017. Imm gran pct 0.1 % [facility] Comment: Interpretive Data Percent cell count reference ranges are not reported, since discordance with absolute values may lead to misinterpretation of CBC data. Current Interpretive Data was last revised on 2017. Lymphocyte pct 51.6 % [facility] Comment: Interpretive Data Percent cell count reference ranges are not reported, since discordance with absolute values may lead to misinterpretation of CBC data. Current Interpretive Data was last revised on 2017. Monocyte pct 7.3 % [facility] Comment: Interpretive Data Percent cell count reference ranges are not reported, since discordance with absolute values may lead to misinterpretation of CBC data. Current Interpretive Data was last revised on 2017. Eosinophil pct 3.6 % [facility] Comment: Interpretive Data Percent cell count reference ranges are not reported, since discordance with absolute values may lead to misinterpretation of CBC data. Current Interpretive Data was last revised on 2017. Basophil pct 1.1 % [facility] Comment: Interpretive Data Percent cell count reference ranges are not reported, since discordance with absolute values may lead to misinterpretation of CBC data. Current Interpretive Data was last revised on 2017. Blood 05/18/2024 4:54 AM DEPUTY PROSECUTING ATTORNEY 05/18/2024 5:49 AM DEPUTY PROSECUTING ATTORNEY Denise Gonzalez MD PhD LAB BLOOD ORDERABLES Final Result Performing Organization Address [facility]/ZIP Co de Phone Number [facility] [place] [address] * CBC with auto differential (05/18/2024 4:54 AM DEPUTY PROSECUTING ATTORNEY) Pathologist [facility] WBC 7.0 3.8 - 9.9 K/cumm Hgb 13.5 13.0 - 17.5 g/dL [facility] Hct 40.9 38.9 - 50.3 % [facility] Plt 341 150 - 400 K/cumm [facility] MPV 9.9 9.1 - 12.3 fL [facility] RBC 4.48 4.30 - 5.80 M/cumm [facility] MCV 91.3 81.3 - 96.4 fL [facility] MCH 30.1 27.1 - 33.3 pg [facility] MCHC 33.0 32.3 - 35.7 g/dL [facility] RDW CV 12.0 11.1 - 14.9 % [facility] RDW SD 40.5 35.7 - 48.1 fL [facility] NRBC abs 0.00 0.00 - 0.01 K/cumm [facility] Blood 05/18/2024 4:54 AM DEPUTY PROSECUTING ATTORNEY 05/18/2024 5:49 AM DEPUTY PROSECUTING ATTORNEY Denise Gonzalez MD PhD LAB BLOOD ORDERABLES Final Result Performing Organization Address [facility]/ZIP Co de Phone Number [facility] [place] [address] * (ABNORMAL) Comprehensive metabolic panel (05/18/2024 4:54 AM DEPUTY PROSECUTING ATTORNEY) Sodium 144 135 - 145 mmol/L Potassium, pl 4.9 3.3 - 4.9 mmol/L [facility] Chloride 104 97 - 110 mmol/L [facility] CO2 29 22 - 32 mmol/L [facility] Anion gap 11 2 - 15 mmol/L [facility] BUN 12 6 - 25 mg/dL [facility] Creatinine 0.84 0.80 - 1.30 mg/dL [facility] Glucose 95 70 - 199 mg/dL [facility] Comment: Interpretive Data Fasting glucose >/= 126 [...] 2022. Calcium 9.9 8.5 - 10.3 mg/dL [facility] Bilirubin, total <0.2 0.1 - 1.2 mg/dL [facility] Protein, pl 7.2 6.5 - 8.5 g/dL [facility] Albumin 4.3 3.5 - 5.0 g/dL [facility] Alk phos 57 40 - 130 Units/L [facility] ALT 61(H) 7 - 55 Units/L [facility] AST 59(H) 10 - 50 Units/L [facility] Blood 05/18/2024 4:54 AM DEPUTY PROSECUTING ATTORNEY 05/18/2024 5:45 AM DEPUTY PROSECUTING ATTORNEY us Denise Gonzalez MD PhD LAB BLOOD ORDERABLES Final Result [facility] [place] [address] * eGFR (05/17/2024 4:30 AM DEPUTY PROSECUTING ATTORNEY) eGFR >90 >=60 mL/min/1. 73 m2 Comment: [...] last reviewed 2021. Blood 05/17/2024 4:30 AM DEPUTY PROSECUTING ATTORNEY 05/17/2024 5:30 AM DEPUTY PROSECUTING ATTORNEY us Denise Gonzalez MD PhD LAB BLOOD ORDERABLES Final Result [facility] Department of Laboratories [place], [place] [id number] * Differential, auto (05/17/2024 4:30 AM DEPUTY PROSECUTING ATTORNEY) Pathologist [facility] Neutrophil abs 2.8 1.5 - 6.5 K/cumm Imm gran abs 0.0 0.0 - 0.1 K/cumm [facility] Lymphocyte abs 2.2 0.8 - 3.3 K/cumm [facility] Monocyte abs 0.4 0.2 - 0.8 K/cumm [facility] Eosinophil abs 0.3 0.0 - 0.5 K/cumm [facility] Basophil abs 0.1 0.0 - 0.1 K/cumm [facility] Neutrophil pct 49.1 % [facility] Comment: Interpretive Data Percent cell count reference ranges are not reported, since discordance with absolute values may lead to misinterpretation of CBC data. Current Interpretive Data was last revised on 2017. Imm gran pct 0.2 % [facility] Comment: Interpretive Data Percent cell count reference ranges are not reported, since discordance with absolute values may lead to misinterpretation of CBC data. Current Interpretive Data was last revised on 2017. Lymphocyte pct 38.9 % [facility] Comment: Interpretive Data Percent cell count reference ranges are not reported, since discordance with absolute values may lead to misinterpretation of CBC data. Current Interpretive Data was last revised on 2017. Monocyte pct 6.2 % [facility] Comment: Interpretive Data Percent cell count reference ranges are not reported, since discordance with absolute values may lead to misinterpretation of CBC data. Current Interpretive Data was last revised on 2017. Eosinophil pct 4.5 % [facility] Comment: Interpretive Data Percent cell count reference ranges are not reported, since discordance with absolute values may lead to misinterpretation of CBC data. Current Interpretive Data was last revised on 2017. Basophil pct 1.1 % [facility] Comment: Interpretive Data Percent cell count reference ranges are not reported, since discordance with absolute values may lead to misinterpretation of CBC data. Current Interpretive Data was last revised on 2017. Blood 05/17/2024 4:30 AM DEPUTY PROSECUTING ATTORNEY 05/17/2024 5:33 AM DEPUTY PROSECUTING ATTORNEY us Denise Gonzalez MD PhD LAB BLOOD ORDERABLES Final Result [facility] [place] [address] * (ABNORMAL) CBC with auto differential (05/17/2024 4:30 AM DEPUTY PROSECUTING ATTORNEY) [facility] WBC 5.6 3.8 - 9.9 K/cumm Hgb 11.7(L) 13.0 - 17.5 g/dL [facility] Hct 34.4(L) 38.9 - 50.3 % [facility] Plt 309 150 - 400 K/cumm [facility] MPV 10.0 9.1 - 12.3 fL [facility] RBC 3.90(L) 4.30 - 5.80 M/cumm [facility] MCV 88.2 81.3 - 96.4 fL [facility] MCH 30.0 27.1 - 33.3 pg [facility] MCHC 34.0 32.3 - 35.7 g/dL [facility] RDW CV 12.0 11.1 - 14.9 % [facility] RDW SD 38.7 35.7 - 48.1 fL [facility] NRBC abs 0.00 0.00 - 0.01 K/cumm [facility] Blood 05/17/2024 4:30 AM DEPUTY PROSECUTING ATTORNEY 05/17/2024 5:33 AM DEPUTY PROSECUTING ATTORNEY us Denise Gonzalez MD PhD LAB BLOOD ORDERABLES Final Result [facility] [place] [address] * (ABNORMAL) Comprehensive metabolic panel (05/17/2024 4:30 AM DEPUTY PROSECUTING ATTORNEY) [facility] Sodium 142 135 - 145 mmol/L Potassium, pl 4.6 3.3 - 4.9 mmol/L [facility] Chloride 105 97 - 110 mmol/L [facility] CO2 30 22 - 32 mmol/L [facility] Anion gap 7 2 - 15 mmol/L [facility] BUN 15 6 - 25 mg/dL [facility] Creatinine 0.72(L) 0.80 - 1.30 mg/dL [facility] Glucose 117 70 - 199 mg/dL [facility] Comment: Interpretive Data Fasting glucose >/= 126 [...] Calcium 9.5 8.5 - 10.3 mg/dL [facility] Bilirubin, total <0.2 0.1 - 1.2 mg/dL [facility] Protein, pl 6.7 6.5 - 8.5 g/dL [facility] Albumin 3.9 3.5 - 5.0 g/dL [facility] Alk phos 55 40 - 130 Units/L [facility] ALT 33 7 - 55 Units/L [facility] AST 28 10 - 50 Units/L [facility] Blood 05/17/2024 4:30 AM DEPUTY PROSECUTING ATTORNEY 05/17/2024 5:30 AM DEPUTY PROSECUTING ATTORNEY us Denise Gonzalez MD PhD LAB BLOOD ORDERABLES Final Result [facility] [place] [address] * eGFR (05/16/2024 5:18 AM DEPUTY PROSECUTING ATTORNEY) eGFR >90 >=60 mL/min/1. 73 m2 Comment: [...] last reviewed 2021. Blood 05/16/2024 5:18 AM DEPUTY PROSECUTING ATTORNEY 05/16/2024 6:40 AM DEPUTY PROSECUTING ATTORNEY us Denise Gonzalez MD PhD LAB BLOOD ORDERABLES Final Result [facility] [place] [address] * Differential, auto (05/16/2024 5:18 AM DEPUTY PROSECUTING ATTORNEY) Neutrophil abs 2.7 1.5 - 6.5 K/cumm Imm gran abs 0.0 0.0 - 0.1 K/cumm [facility] Lymphocyte abs 2.6 0.8 - 3.3 K/cumm [facility] Monocyte abs 0.4 0.2 - 0.8 K/cumm [facility] Eosinophil abs 0.3 0.0 - 0.5 K/cumm [facility] Basophil abs 0.1 0.0 - 0.1 K/cumm [facility] Neutrophil pct 44.1 % [facility] Comment: Interpretive Data Percent cell count reference ranges are not reported, since discordance with absolute values may lead to misinterpretation of CBC data. Current Interpretive Data was last revised on 2017. Imm gran pct 0.3 % [facility] Comment: Interpretive Data Percent cell count reference ranges are not reported, since discordance with absolute values may lead to misinterpretation of CBC data. Current Interpretive Data was last revised on 2017. Lymphocyte pct 42.0 % [facility] Comment: Interpretive Data Percent cell count reference ranges are not reported, since discordance with absolute values may lead to misinterpretation of CBC data. Current Interpretive Data was last revised on 2017. Monocyte pct 7.2 % [facility] Comment: Interpretive Data Percent cell count reference ranges are not reported, since discordance with absolute values may lead to misinterpretation of CBC data. Current Interpretive Data was last revised on 2017. Eosinophil pct 5.4 % [facility] Comment: Interpretive Data Percent cell count reference ranges are not reported, since discordance with absolute values may lead to misinterpretation of CBC data. Current Interpretive Data was last revised on 2017. Basophil pct 1.0 % [facility] Comment: Interpretive Data Percent cell count reference ranges are not reported, since discordance with absolute values may lead to misinterpretation of CBC data. Current Interpretive Data was last revised on 2017. Blood 05/16/2024 5:18 AM DEPUTY PROSECUTING ATTORNEY 05/16/2024 6:40 AM DEPUTY PROSECUTING ATTORNEY us Denise Gonzalez MD PhD LAB BLOOD ORDERABLES Final Result [facility] [place] [address] * (ABNORMAL) CBC with auto differential (05/16/2024 5:18 AM DEPUTY PROSECUTING ATTORNEY) WBC 6.2 3.8 - 9.9 K/cumm Hgb 11.1(L) 13.0 - 17.5 g/dL [facility] Hct 32.6(L) 38.9 - 50.3 % [facility] Plt 291 150 - 400 K/cumm [facility] MPV 10.0 9.1 - 12.3 fL [facility] RBC 3.66(L) 4.30 - 5.80 M/cumm [facility] MCV 89.1 81.3 - 96.4 fL [facility] MCH 30.3 27.1 - 33.3 pg [facility] MCHC 34.0 32.3 - 35.7 g/dL [facility] RDW CV 11.9 11.1 - 14.9 % [facility] RDW SD 38.4 35.7 - 48.1 fL [facility] NRBC abs 0.00 0.00 - 0.01 K/cumm [facility] Blood 05/16/2024 5:18 AM DEPUTY PROSECUTING ATTORNEY 05/16/2024 6:40 AM DEPUTY PROSECUTING ATTORNEY us Denise Gonzalez MD PhD LAB BLOOD ORDERABLES Final Result Performing Organization Address [facility] de Phone Number [facility] [place] [address] * Vancomycin level trough prior to 4th dose (05/16/2024 5:18 AM DEPUTY PROSECUTING ATTORNEY) [facility] Vancomycin trough 15.0 10.0 - 20.0 mcg/mL Comment:Repeated and Verifie d Blood 05/16/2024 5:18 AM DEPUTY PROSECUTING ATTORNEY 05/16/2024 6:40 AM DEPUTY PROSECUTING ATTORNEY Narrative [facility] - 05/16/2024 7:32 AM DEPUTY PROSECUTING ATTORNEY prior to 4th dose us Malcolm Deras MD LAB BLOOD ORDERABLES Fin al Result Performing Organization Address [facility] de Phone Number [facility] [place] [address] * (ABNORMAL) Comprehensive metabolic panel (05/16/2024 5:18 AM DEPUTY PROSECUTING ATTORNEY) [facility] Sodium 140 135 - 145 mmol/L Potassium, pl 4.3 3.3 - 4.9 mmol/L [facility] Chloride 106 97 - 110 mmol/L [facility] CO2 28 22 - 32 mmol/L [facility] Anion gap 6 2 - 15 mmol/L [facility] BUN 12 6 - 25 mg/dL [facility] Creatinine 0.70(L) 0.80 - 1.30 mg/dL [facility] Glucose 91 70 - 199 mg/dL [facility] Comment: Interpretive Data Fasting glucose >/= 126 [...] 2022. Calcium 9.2 8.5 - 10.3 mg/dL [facility] Bilirubin, total <0.2 0.1 - 1.2 mg/dL [facility] Protein, pl 6.4(L) 6.5 - 8.5 g/dL [facility] Albumin 3.7 3.5 - 5.0 g/dL [facility] Alk phos 53 40 - 130 Units/L [facility] ALT 26 7 - 55 Units/L [facility] AST 21 10 - 50 Units/L [facility] Blood 05/16/2024 5:18 AM DEPUTY PROSECUTING ATTORNEY 05/16/2024 6:40 AM DEPUTY PROSECUTING ATTORNEY us Denise Gonzalez MD PhD LAB BLOOD ORDERABLES Final Result [facility] [place] [address] * eGFR (05/15/2024 4:41 AM DEPUTY PROSECUTING ATTORNEY) Pathologist [facility] eGFR >90 >=60 mL/min/1. 73 m2 Comment: [...] last reviewed 2021. Blood 05/15/2024 4:41 AM DEPUTY PROSECUTING ATTORNEY 05/15/2024 5:48 AM DEPUTY PROSECUTING ATTORNEY us Denise Gonzalez MD PhD LAB BLOOD ORDERABLES Final Result [facility] [place] [address] * Differential, auto (05/15/2024 4:41 AM DEPUTY PROSECUTING ATTORNEY) Pathologist [facility] Neutrophil abs 2.7 1.5 - 6.5 K/cumm Imm gran abs 0.0 0.0 - 0.1 K/cumm [facility] Lymphocyte abs 2.7 0.8 - 3.3 K/cumm [facility] Monocyte abs 0.6 0.2 - 0.8 K/cumm [facility] Eosinophil abs 0.5 0.0 - 0.5 K/cumm [facility] Basophil abs 0.1 0.0 - 0.1 K/cumm [facility] Neutrophil pct 41.3 % [facility] Comment: Interpretive Data Percent cell count reference ranges are not reported, since discordance with absolute values may lead to misinterpretation of CBC data. Current Interpretive Data was last revised on 2017. Imm gran pct 0.3 % [facility] Comment: Interpretive Data Percent cell count reference ranges are not reported, since discordance with absolute values may lead to misinterpretation of CBC data. Current Interpretive Data was last revised on 2017. Lymphocyte pct 41.3 % [facility] Comment: Interpretive Data Percent cell count reference ranges are not reported, since discordance with absolute values may lead to misinterpretation of CBC data. Current Interpretive Data was last revised on 2017. Monocyte pct 9.0 % [facility] Comment: Interpretive Data Percent cell count reference ranges are not reported, since discordance with absolute values may lead to misinterpretation of CBC data. Current Interpretive Data was last revised on 2017. Eosinophil pct 7.0 % [facility] Comment: Interpretive Data Percent cell count reference ranges are not reported, since discordance with absolute values may lead to misinterpretation of CBC data. Current Interpretive Data was last revised on 2017. Basophil pct 1.1 % [facility] Comment: Interpretive Data Percent cell count reference ranges are not reported, since discordance with absolute values may lead to misinterpretation of CBC data. Current Interpretive Data was last revised on 2017. Blood 05/15/2024 4:41 AM DEPUTY PROSECUTING ATTORNEY 05/15/2024 5:49 AM DEPUTY PROSECUTING ATTORNEY us Denise Gonzalez MD PhD LAB BLOOD ORDERABLES Final Result [facility] Department of [place] [address] * (ABNORMAL) CBC with auto differential (05/15/2024 4:41 AM DEPUTY PROSECUTING ATTORNEY) WBC 6.5 3.8 - 9.9 K/cumm Hgb 10.9(L) 13.0 - 17.5 g/dL [facility] Hct 31.7(L) 38.9 - 50.3 % [facility] Plt 310 150 - 400 K/cumm [facility] MPV 10.0 9.1 - 12.3 fL [facility] RBC 3.60(L) 4.30 - 5.80 M/cumm [facility] MCV 88.1 81.3 - 96.4 fL [facility] MCH 30.3 27.1 - 33.3 pg [facility] MCHC 34.4 32.3 - 35.7 g/dL [facility] RDW CV 11.6 11.1 - 14.9 % [facility] RDW SD 37.6 35.7 - 48.1 fL [facility] NRBC abs 0.00 0.00 - 0.01 K/cumm [facility] Blood 05/15/2024 4:41 AM DEPUTY PROSECUTING ATTORNEY 05/15/2024 5:49 AM DEPUTY PROSECUTING ATTORNEY us Denise Gonzalez MD PhD LAB BLOOD ORDERABLES Final Result Performing Organization Address City/[facility] Co de Phone Number [facility] [place] [address] * (ABNORMAL) Vancomycin level trough (05/15/2024 4:41 AM DEPUTY PROSECUTING ATTORNEY) Pathologist [facility] Vancomycin trough 9.7(L) 10.0 - 20.0 mcg/mL Comment:Reviewed Blood 05/15/2024 4:41 AM DEPUTY PROSECUTING ATTORNEY 05/15/2024 5:49 AM DEPUTY PROSECUTING ATTORNEY Karine Ulloa MD LAB BLOOD ORDERABLES Fin al Result Performing Organization Address [facility] de Phone Number [facility] [place] [address] * (ABNORMAL) Comprehensive metabolic panel (05/15/2024 4:41 AM DEPUTY PROSECUTING ATTORNEY) Pathologist [facility] Sodium 142 135 - 145 mmol/L Potassium, pl 4.3 3.3 - 4.9 mmol/L [facility] Chloride 107 97 - 110 mmol/L [facility] CO2 29 22 - 32 mmol/L [facility] Anion gap 6 2 - 15 mmol/L [facility] BUN 9 6 - 25 mg/dL [facility] Creatinine 0.68(L) 0.80 - 1.30 mg/dL [facility] Glucose 105 70 - 199 mg/dL [facility] Comment: Interpretive Data Fasting glucose >/= 126 [...] 2022. Calcium 9.0 8.5 - 10.3 mg/dL [facility] Bilirubin, total <0.2 0.1 - 1.2 mg/dL [facility] Protein, pl 6.0(L) 6.5 - 8.5 g/dL [facility] Albumin 3.4(L) 3.5 - 5.0 g/dL [facility] Alk phos 55 40 - 130 Units/L [facility] ALT 27 7 - 55 Units/L [facility] AST 23 10 - 50 Units/L [facility] Blood 05/15/2024 4:41 AM DEPUTY PROSECUTING ATTORNEY 05/15/2024 5:48 AM DEPUTY PROSECUTING ATTORNEY us Denise Gonzalez MD PhD LAB BLOOD ORDERABLES Final Result [facility] [place] [address] * Blood culture Blood (05/14/2024 11:29 PM DEPUTY PROSECUTING ATTORNEY) Report Final Report: No growth Blood 05/14/2024 11:2 9 PM DEPUTY PROSECUTING ATTORNEY 05/15/2024 12:50 AM DEPUTY PROSECUTING ATTORNEY Narrative [facility] - 05/19/2024 7:00 AM DEPUTY PROSECUTING ATTORNEY Collection->Peripheral 1. ?Blood cultures are incubated for [...] performance characteristics have been verified by the [facility]biology [facility]. For questions about this culture, contact the Microbiology Laboratory at [phone]. Interpretive data was last revised on 24. us Karine Ulloa MD LAB MICROBIOLOGY - GENER AL ORDERABLES Final Result [facility] [place] [address] * Blood culture Blood (05/14/2024 11:29 PM DEPUTY PROSECUTING ATTORNEY) Report Final Report: No growth Blood 05/14/2024 11:2 9 PM DEPUTY PROSECUTING ATTORNEY 05/15/2024 12:50 AM DEPUTY PROSECUTING ATTORNEY Narrative [facility] - 05/19/2024 7:00 AM DEPUTY PROSECUTING ATTORNEY Collection->Peripheral 1. ?Blood cultures are incubated for [...] performance characteristics have been verified by the [facility]biology [facility]. For questions about this culture, contact the Microbiology Laboratory at [phone]. Interpretive data was last revised on 24. us Karine Ulloa MD LAB MICROBIOLOGY - GENER AL ORDERABLES Final Result [facility] [place] [address] * eGFR (05/14/2024 5:08 AM DEPUTY PROSECUTING ATTORNEY) eGFR >90 >=60 mL/min/1. 73 m2 Comment: [...] last reviewed 2021. Blood 05/14/2024 5:08 AM DEPUTY PROSECUTING ATTORNEY 05/14/2024 6:48 AM DEPUTY PROSECUTING ATTORNEY us Denise Gonzalez MD PhD LAB BLOOD ORDERABLES Final Result [facility] [place] [address] * Differential, auto (05/14/2024 5:08 AM DEPUTY PROSECUTING ATTORNEY) Neutrophil abs 3.1 1.5 - 6.5 K/cumm Imm gran abs 0.0 0.0 - 0.1 K/cumm [facility] Lymphocyte abs 2.3 0.8 - 3.3 K/cumm [facility] Monocyte abs 0.7 0.2 - 0.8 K/cumm [facility] Eosinophil abs 0.4 0.0 - 0.5 K/cumm [facility] Basophil abs 0.1 0.0 - 0.1 K/cumm [facility] Neutrophil pct 47.2 % [facility] Comment: Interpretive Data Percent cell count reference ranges are not reported, since discordance with absolute values may lead to misinterpretation of CBC data. Current Interpretive Data was last revised on 2017. Imm gran pct 0.3 % [facility] Comment: Interpretive Data Percent cell count reference ranges are not reported, since discordance with absolute values may lead to misinterpretation of CBC data. Current Interpretive Data was last revised on 2017. Lymphocyte pct 34.6 % [facility] Comment: Interpretive Data Percent cell count reference ranges are not reported, since discordance with absolute values may lead to misinterpretation of CBC data. Current Interpretive Data was last revised on 2017. Monocyte pct 10.3 % [facility] Comment: Interpretive Data Percent cell count reference ranges are not reported, since discordance with absolute values may lead to misinterpretation of CBC data. Current Interpretive Data was last revised on 2017. Eosinophil pct 6.5 % [facility] Comment: Interpretive Data Percent cell [...] revised on 2017. Blood 05/14/2024 5:08 AM DEPUTY PROSECUTING ATTORNEY 05/14/2024 6:47 AM DEPUTY PROSECUTING ATTORNEY Denise Gonzalez MD PhD LAB BLOOD ORDERABLES Final Result Performing Organization Address City/[facility]/ZIP Co de Phone Number [facility] [place] [address] * (ABNORMAL) CBC with auto differential (05/14/2024 5:08 AM DEPUTY PROSECUTING ATTORNEY) WBC 6.6 3.8 - 9.9 K/cumm Hgb 12.5(L) 13.0 - 17.5 g/dL [facility] Hct 36.3(L) 38.9 - 50.3 % [facility] Plt 340 150 - 400 K/cumm [facility] MPV 9.9 9.1 - 12.3 fL [facility] RBC 4.09(L) 4.30 - 5.80 M/cumm [facility] MCV 88.8 81.3 - 96.4 fL [facility] MCH 30.6 27.1 - 33.3 pg [facility] MCHC 34.4 32.3 - 35.7 g/dL [facility] RDW CV 11.9 11.1 - 14.9 % [facility] RDW SD 37.9 35.7 - 48.1 fL [facility] NRBC abs 0.00 0.00 - 0.01 K/cumm [facility] Blood 05/14/2024 5:08 AM DEPUTY PROSECUTING ATTORNEY 05/14/2024 6:47 AM DEPUTY PROSECUTING ATTORNEY Denise Gonzalez MD PhD LAB BLOOD ORDERABLES Final Result Performing Organization Address City/[facility]/ZIP Co de Phone Number [facility] [place] [address] * Comprehensive metabolic panel (05/14/2024 5:08 AM DEPUTY PROSECUTING ATTORNEY) Sodium 142 135 - 145 mmol/L Potassium, pl 4.1 3.3 - 4.9 mmol/L [facility] Chloride 108 97 - 110 mmol/L [facility] CO2 27 22 - 32 mmol/L [facility] Anion gap 7 2 - 15 mmol/L [facility] BUN 12 6 - 25 mg/dL [facility] Creatinine 0.80 0.80 - 1.30 mg/dL [facility] Glucose 93 70 - 199 mg/dL [facility] Comment: Interpretive Data Fasting glucose >/= 126 [...] 2022. Calcium 9.5 8.5 - 10.3 mg/dL [facility] Bilirubin, total <0.2 0.1 - 1.2 mg/dL [facility] Comment:Reviewed Protein, pl 6.8 6.5 - 8.5 g/dL [facility] Albumin 4.0 3.5 - 5.0 g/dL [facility] Alk phos 64 40 - 130 Units/L [facility] ALT 34 7 - 55 Units/L [facility] AST 24 10 - 50 Units/L [facility] Blood 05/14/2024 5:08 AM DEPUTY PROSECUTING ATTORNEY 05/14/2024 6:47 AM DEPUTY PROSECUTING ATTORNEY us Denise Gonzalez MD PhD LAB BLOOD ORDERABLES Final Result [facility] Department [place] [address] * (ABNORMAL) Vancomycin level trough (05/13/2024 4:15 PM DEPUTY PROSECUTING ATTORNEY) Vancomycin trough 8.3(L) 10.0 - 20.0 mcg/mL Blood 05/13/2024 4:15 PM DEPUTY PROSECUTING ATTORNEY 05/13/2024 5:12 PM DEPUTY PROSECUTING ATTORNEY Karine Ulloa MD LAB BLOOD ORDERABLES Fin al Result Performing Organization Address City/State/[facility] Co wy Phone Number [facility] [place] [address] * eGFR (05/13/2024 6:14 AM DEPUTY PROSECUTING ATTORNEY) eGFR >90 >=60 mL/min/1. 73 m2 Comment: [...] last reviewed 2021. Blood 05/13/2024 6:14 AM DEPUTY PROSECUTING ATTORNEY 05/13/2024 7:50 AM DEPUTY PROSECUTING ATTORNEY us Denise Gonzalez MD PhD LAB BLOOD ORDERABLES Final Result [facility] [place] [address] * Differential, auto (05/13/2024 6:14 AM DEPUTY PROSECUTING ATTORNEY) Neutrophil abs 5.3 1.5 - 6.5 K/cumm Imm gran abs 0.0 0.0 - 0.1 K/cumm [facility] Lymphocyte abs 1.5 0.8 - 3.3 K/cumm [facility] Monocyte abs 0.7 0.2 - 0.8 K/cumm [facility] Eosinophil abs 0.3 0.0 - 0.5 K/cumm [facility] Basophil abs 0.1 0.0 - 0.1 K/cumm [facility] Neutrophil pct 67.1 % [facility] Comment: Interpretive Data Percent cell count reference ranges are not reported, since discordance with absolute values may lead to misinterpretation of CBC data. Current Interpretive Data was last revised on 2017. Imm gran pct 0.4 % [facility] Comment: Interpretive Data Percent cell count reference ranges are not reported, since discordance with absolute values may lead to misinterpretation of CBC data. Current Interpretive Data was last revised on 2017. Lymphocyte pct 18.9 % [facility] Comment: Interpretive Data Percent cell count reference ranges are not reported, since discordance with absolute values may lead to misinterpretation of CBC data. Current Interpretive Data was last revised on 2017. Monocyte pct 8.5 % [facility] Comment: Interpretive Data Percent cell count reference ranges are not reported, since discordance with absolute values may lead to misinterpretation of CBC data. Current Interpretive Data was last revised on 2017. Eosinophil pct 4.2 % [facility] Comment: Interpretive Data Percent cell count reference ranges are not reported, since discordance with absolute values may lead to misinterpretation of CBC data. Current Interpretive Data was last revised on 2017. Basophil pct 0.9 % [facility] Comment: Interpretive Data Percent cell count reference ranges are not reported, since discordance with absolute values may lead to misinterpretation of CBC data. Current Interpretive Data was last revised on 2017. Blood 05/13/2024 6:14 AM DEPUTY PROSECUTING ATTORNEY 05/13/2024 6:45 AM DEPUTY PROSECUTING ATTORNEY Denise Gonzalez MD PhD LAB BLOOD ORDERABLES Final Result [facility] [place] [address] * (ABNORMAL) CBC with auto differential (05/13/2024 6:14 AM DEPUTY PROSECUTING ATTORNEY) WBC 7.9 3.8 - 9.9 K/cumm Hgb 11.7(L) 13.0 - 17.5 g/dL [facility] Hct 34.4(L) 38.9 - 50.3 % [facility] Plt 292 150 - 400 K/cumm [facility] MPV 9.5 9.1 - 12.3 fL [facility] RBC 3.92(L) 4.30 - 5.80 M/cumm [facility] MCV 87.8 81.3 - 96.4 fL [facility] MCH 29.8 27.1 - 33.3 pg [facility] MCHC 34.0 32.3 - 35.7 g/dL [facility] RDW CV 11.7 11.1 - 14.9 % [facility] RDW SD 37.2 35.7 - 48.1 fL [facility] NRBC abs 0.00 0.00 - 0.01 K/cumm [facility] Blood 05/13/2024 6:14 AM DEPUTY PROSECUTING ATTORNEY 05/13/2024 6:45 AM DEPUTY PROSECUTING ATTORNEY Denise Gonzalez MD PhD LAB BLOOD ORDERABLES Final Result Performing Organization Address City/[facility]/ZIP Co de Phone Number [facility] [place] [address] * Valproic acid level, total (05/13/2024 6:14 AM DEPUTY PROSECUTING ATTORNEY) [facility] Valproic Acid 55.0 50.0 - 100.0 mcg/mL Comment: Interpretive Data Therapeutic or toxic effects of anticonvulsant drugs may occur at different concentrations in different patients and the correlation between dose and clinical effect must be evaluated individually. Current interpretative data was last revised on 13. Blood 05/13/2024 6:14 AM DEPUTY PROSECUTING ATTORNEY 05/13/2024 6:45 AM DEPUTY PROSECUTING ATTORNEY [facility] Final Result Performing Organization Address [facility] de Phone Number [facility] [address] * (ABNORMAL) Carbamazepine level, total (05/13/2024 6:14 AM DEPUTY PROSECUTING ATTORNEY) [facility] Carbamazepine <3.0(L) 4.0 - 12.0 mcg/mL Comment: Interpretive Data Therapeutic or Toxic effect of anticonvulsant drugs may occur at different concentrations in different patients and the correlation between dose and clinical effect must be evaluated individually. Current interpretive data was last revised on 13. Blood 05/13/2024 6:14 AM DEPUTY PROSECUTING ATTORNEY 05/13/2024 6:45 AM DEPUTY PROSECUTING ATTORNEY Yaritza Lopez [facility] LAB BLOOD ORDERABLES Final Result Performing Organization Address [facility] de Phone Number [facility] [place] [address] * (ABNORMAL) Comprehensive metabolic panel (05/13/2024 6:14 AM DEPUTY PROSECUTING ATTORNEY) [facility] Sodium 141 135 - 145 mmol/L Potassium, pl 3.8 3.3 - 4.9 mmol/L [facility] Chloride 107 97 - 110 mmol/L [facility] CO2 26 22 - 32 mmol/L [facility] Anion gap 8 2 - 15 mmol/L [facility] BUN 12 6 - 25 mg/dL [facility] Creatinine 0.70(L) 0.80 - 1.30 mg/dL [facility] Glucose 103 70 - 199 mg/dL [facility] Comment: Interpretive Data Fasting glucose >/= 126 [...] 2022. Calcium 8.9 8.5 - 10.3 mg/dL [facility] Bilirubin, total 0.2 0.1 - 1.2 mg/dL [facility] Protein, pl 6.2(L) 6.5 - 8.5 g/dL [facility] Albumin 3.5 3.5 - 5.0 g/dL [facility] Alk phos 58 40 - 130 Units/L [facility] ALT 34 7 - 55 Units/L [facility] AST 28 10 - 50 Units/L [facility] Blood 05/13/2024 6:14 AM DEPUTY PROSECUTING ATTORNEY 05/13/2024 6:51 AM DEPUTY PROSECUTING ATTORNEY us Denise Gonzalez MD PhD LAB BLOOD ORDERABLES Final Result [facility] [place] [address] * Check Sample (05/12/2024 12:27 PM DEPUTY PROSECUTING ATTORNEY) ABO Rh B Negative [facility] HCLL OTHER 05/12/2024 12:2 7 PM DEPUTY PROSECUTING ATTORNEY 05/12/2024 12:50 PM DEPUTY PROSECUTING ATTORNEY us Cheryl Saldana MD PhD LAB BLOOD ORDERABLES Fi nal Result [facility] [place] [address] [facility] * (ABNORMAL) Aerobic and anaerobic culture and gram stain Abscess Finger, index, left (05/12/2024 12:27 PM DEPUTY PROSECUTING ATTORNEY) Direct Specimen Exam Stain: Rare polymorphonuclear leukocytes seen. Rare Gram Positive Cocci Report Final Report: Few Staphylococcus aureus Methicillin resistant (MRSA) by penicillin binding protein 2a (PBP2a) testing. Few Streptococcus pyogenes (Group A Streptococci) Streptococcus pyogenes is uniformly susceptible to beta-lactam antibiotics and vancomycin. ??Routine susceptibility testing is not performed. (.) [facility] Organism STAPHYLOCOCCUS AUREUS [facility] Organism STREPTOCOCCUS PYOGENES (GROUP A STREPTOCOCCI) [facility] Abscess (Finger, index, left) 05/12/2024 12:27 PM DEPUTY PROSECUTING ATTORNEY 05/12/2024 12:44 PM DEPUTY PROSECUTING ATTORNEY Narrative [facility] - 05/15/2024 1:25 PM DEPUTY PROSECUTING ATTORNEY Specimen received on an ESwab. Testing performed by [facility] ([phone]) Specimens submitted from normally sterile body sites [...] Cheryl Saldana MD PhD LAB MICROBIOLOGY - [facility] ORDERABLES Final Result [facility] [place] [address] * Surgical pathology (05/12/2024 12:00 PM DEPUTY PROSECUTING ATTORNEY) Tissue (Amputation non-tramatic) 05/12/2024 12:00 PM DEPUTY PROSECUTING ATTORNEY 05/12/2024 4:45 PM DEPUTY PROSECUTING ATTORNEY Narrative PATHOLOGY [facility] - 05/19/2024 12:00 PM DEPUTY PROSECUTING ATTORNEY EPIC results best viewed via link to PDF [facility] [place] [address] Note to Patients: This report may contain [...] Gender: ??M : ??1985 (Age: 38) Address: ??[place], [place] ??[address] Hospital #: ??[id number] Taken:05/12/2024 Received:05/12/2024 Reported: 05/19/2024 Patient Type: [facility] Inpatient ?? Service: Medical Location: [facility] Physician(s): ??Chen Gar M.D. MD Cheryl Sue [...] bone. ??See attached photographs. ??Labeled A1 - account retention representative open wound to black- inked skin and soft tissue margin; A2 - account retention representative bone underlying open wound, submitted following acid decalcification. ??Jar 3. ? dxb/05/15/2024 15:52 PA(s): SEAN Renae, YUSEF([facility])CM By this signature, I attest that the above diagnosis is based upon my personal examination of the slides(and/or other material). Addenda/Procedures The performance characteristics of some immunohistochemical stains, fluorescence in-situ hybridization tests and immunophenotyping by flow cytometry cited in this report (if any) were determined by the Surgical Pathology and Flow Cytometry Departments at [facility] as part of an ongoing director of quality improvement program and in compliance with federally mandated [...] Surgical Pathology and Flow Cytometry Departments of [facility]. ??It has not been cleared or approved by the U. S. Food and Drug Administration. IMAGES AND SCANNED DOCUMENTS, IF INCLUDED, ONLY VIEWABLE IN PDF VERSION OF REPORT Cheryl Saldana MD PhD LAB PATHOLOGY ORDERABLE S Final Result PATHOLOGY [facility] [address] Floor [place], [place] [phone] * Type and screen (05/12/2024 9:30 AM DEPUTY PROSECUTING ATTORNEY) Song, indirect Negative ABO Rh B Negative [facility] Blood 05/12/2024 9:30 AM DEPUTY PROSECUTING ATTORNEY 05/12/2024 10:07 AM DEPUTY PROSECUTING ATTORNEY Narrative [facility] - 05/12/2024 11:00 AM DEPUTY PROSECUTING ATTORNEY Has the patient had Daratumumab or Isatuximab in the past 6 months?->Unknown Miguel Krishnamurthy MD LAB BLOOD BANK TEST ORDERABLES Final Result Performing Organization Address [facility] Co de Phone Number [facility] [place] [address] * XR Hand Left 3 or More Views (05/12/2024 6:27 AM DEPUTY PROSECUTING ATTORNEY) Anatomical Region Laterality Modality Upper Extremities, Hand Left Computed Radiography 05/12/2024 7:27 AM DEPUTY PROSECUTING ATTORNEY Impressions 05/12/2024 7:54 AM DEPUTY PROSECUTING ATTORNEY There is diffuse soft tissue swelling about [...] Olvera M.D., Ph.D Narrative 05/12/2024 7:54 AM DEPUTY PROSECUTING ATTORNEY EXAMINATION: XR HAND LEFT 3 OR MORE [...] l Result * eGFR (05/12/2024 6:05 AM DEPUTY PROSECUTING ATTORNEY) Pathologist [facility] eGFR >90 >=60 mL/min/1. 73 m2 Comment: [...] last reviewed 2021. Blood 05/12/2024 6:05 AM DEPUTY PROSECUTING ATTORNEY 05/12/2024 6:16 AM DEPUTY PROSECUTING ATTORNEY us Cole Epperson MD LAB BLOOD ORDERABLES F inal Result [facility] [place] [address] * (ABNORMAL) Differential, auto (05/12/2024 6:05 AM DEPUTY PROSECUTING ATTORNEY) Neutrophil abs 6.5 1.5 - 6.5 K/cumm Imm gran abs 0.0 0.0 - 0.1 K/cumm [facility] Lymphocyte abs 1.5 0.8 - 3.3 K/cumm [facility] Monocyte abs 0.9(H) 0.2 - 0.8 K/cumm [facility] Eosinophil abs 0.2 0.0 - 0.5 K/cumm [facility] Basophil abs 0.1 0.0 - 0.1 K/cumm [facility] Neutrophil pct 71.5 % [facility] Comment: Interpretive Data Percent cell count reference ranges are not reported, since discordance with absolute values may lead to misinterpretation of CBC data. Current Interpretive Data was last revised on 2017. Imm gran pct 0.2 % [facility] Comment: Interpretive Data Percent cell count reference ranges are not reported, since discordance with absolute values may lead to misinterpretation of CBC data. Current Interpretive Data was last revised on 2017. Lymphocyte pct 16.0 % [facility] Comment: Interpretive Data Percent cell count reference ranges are not reported, since discordance with absolute values may lead to misinterpretation of CBC data. Current Interpretive Data was last revised on 2017. Monocyte pct 9.8 % [facility] Comment: Interpretive Data Percent cell count reference ranges are not reported, since discordance with absolute values may lead to misinterpretation of CBC data. Current Interpretive Data was last revised on 2017. Eosinophil pct 1.9 % [facility] Comment: Interpretive Data Percent cell count reference ranges are not reported, since discordance with absolute values may lead to misinterpretation of CBC data. Current Interpretive Data was last revised on 2017. Basophil pct 0.6 % [facility] Comment: Interpretive Data Percent cell count reference ranges are not reported, since discordance with absolute values may lead to misinterpretation of CBC data. Current Interpretive Data was last revised on 2017. Blood 05/12/2024 6:05 AM DEPUTY PROSECUTING ATTORNEY 05/12/2024 6:16 AM DEPUTY PROSECUTING ATTORNEY us Cole Epperson MD LAB BLOOD ORDERABLES F inal Result [facility] [place] [address] * (ABNORMAL) CBC with auto differential (05/12/2024 6:05 AM DEPUTY PROSECUTING ATTORNEY) WBC 9.1 3.8 - 9.9 K/cumm Hgb 12.7(L) 13.0 - 17.5 g/dL [facility] Hct 36.9(L) 38.9 - 50.3 % [facility] Plt 310 150 - 400 K/cumm [facility] MPV 9.0(L) 9.1 - 12.3 fL [facility] RBC 4.26(L) 4.30 - 5.80 M/cumm [facility] MCV 86.6 81.3 - 96.4 fL [facility] MCH 29.8 27.1 - 33.3 pg [facility] MCHC 34.4 32.3 - 35.7 g/dL [facility] RDW CV 11.9 11.1 - 14.9 % [facility] RDW SD 38.2 35.7 - 48.1 fL [facility] NRBC abs 0.00 0.00 - 0.01 K/cumm [facility] Blood 05/12/2024 6:05 AM DEPUTY PROSECUTING ATTORNEY 05/12/2024 6:16 AM DEPUTY PROSECUTING ATTORNEY us Cole Epperson MD LAB BLOOD ORDERABLES F inal Result [facility] [place] [address] * (ABNORMAL) Blood culture Blood Peripheral (05/12/2024 6:05 AM DEPUTY PROSECUTING ATTORNEY) Direct Specimen Exam Molecular Analysis: Staphylococcus species detected by the [facility] BCID-GP panel. Single positive culture may represent contamination. This is most suggestive of a coagulase-negative Staphylococcus species. Please refer to final culture-based result for confirmation. This test does not exclude the possibility of a mixed bacterial infection. Notification of: Staphylococcus species called to and read back by: Radha Saleh MD ([phone]) on 05/14/2024 01:38:13 by: Mikey Hernandez MLS Direct Specimen Exam Stain: Gram Positive Cocci in clusters Time to culture positivity (aerobic media): 40.7 hours Notification of: Gram Positive Cocci in clusters called to and read back by: Pablito Peralta MD PhD ([phone]) on 05/13/2024 23:55:17 by: Mikey Hernandez MLS [facility] Report Final Report: Staphylococcus pettenkoferi Single blood culture positive for this microorganism. ??Isolate is a possible contaminant. If a similar isolate is recovered from a second blood culture collected within 3 days of this culture, both will be evaluated and, if determined to be the same species, antimicrobial susceptibility testing will be performed. (.) [facility] Organism STAPHYLOCOCCUS PET[facility]I [facility] Blood (Peripheral) 05/12/2024 6:05 AM DEPUTY PROSECUTING ATTORNEY 05/12/2024 6:26 AM DEPUTY PROSECUTING ATTORNEY Zach ACOSTA - 05/17/2024 7:30 AM DEPUTY PROSECUTING ATTORNEY From a different site than #1. Draw [...] performance characteristics have been verified by the [facility]. For questions about this culture, contact the Microbiology Laboratory at [phone]. Interpretive data was last revised on 24. Cole Epperson MD LAB MICROBIOLOGY - GEN ERAL ORDERABLES Final Result [facility] Department [place] [address] * Blood culture Blood Peripheral (05/12/2024 6:05 AM DEPUTY PROSECUTING ATTORNEY) Report Final Report: No growth Blood (Peripheral) 05/12/2024 6:05 AM DEPUTY PROSECUTING ATTORNEY 05/12/2024 6:26 AM DEPUTY PROSECUTING ATTORNEY Narrative KAMINI ACOSTA - 05/16/2024 7:00 AM DEPUTY PROSECUTING ATTORNEY Draw Blood cultures before administration of Antibiotics [...] performance characteristics have been verified by the [facility]. For questions about this culture, contact the Microbiology Laboratory at [phone]. Interpretive data was last revised on 24. Cole Epperson MD LAB MICROBIOLOGY - GEN ERAL ORDERABLES Final Result Performing Organization Address City/[facility]/ZIP Co de Phone Number [facility] [place] [address] * (ABNORMAL) Erythrocyte sedimentation rate (05/12/2024 6:05 AM DEPUTY PROSECUTING ATTORNEY) Erythrocyte sedimentation rate 16(H) 1 - 15 mm/hr Blood 05/12/2024 6:05 AM DEPUTY PROSECUTING ATTORNEY 05/12/2024 6:16 AM DEPUTY PROSECUTING ATTORNEY Cole Epperson MD LAB BLOOD ORDERABLES F inal Result Performing Organization Address [facility] Co de Phone Number [facility] [place] [address] * CRP (acute phase) (05/12/2024 6:05 AM DEPUTY PROSECUTING ATTORNEY) Pathologist [facility] CRP 9.9 <=10.0 mg/L Blood 05/12/2024 6:05 AM DEPUTY PROSECUTING ATTORNEY 05/12/2024 6:16 AM DEPUTY PROSECUTING ATTORNEY Cole Epperson MD LAB BLOOD ORDERABLES F inal Result [facility] [place] [address] * Comprehensive metabolic panel (05/12/2024 6:05 AM DEPUTY PROSECUTING ATTORNEY) Pathologist [facility] Sodium 138 135 - 145 mmol/L Potassium, pl 3.8 3.3 - 4.9 mmol/L [facility] Chloride 101 97 - 110 mmol/L [facility] CO2 27 22 - 32 mmol/L [facility] Anion gap 10 2 - 15 mmol/L [facility] BUN 16 6 - 25 mg/dL [facility] Creatinine 0.90 0.80 - 1.30 mg/dL [facility] Glucose 93 70 - 199 mg/dL [facility] Comment: Interpretive Data Fasting glucose >/= 126 [...] 2022. Calcium 9.7 8.5 - 10.3 mg/dL [facility] Bilirubin, total 0.3 0.1 - 1.2 mg/dL [facility] Protein, pl 7.2 6.5 - 8.5 g/dL [facility] Albumin 4.3 3.5 - 5.0 g/dL [facility] Alk phos 67 40 - 130 Units/L [facility] ALT 40 7 - 55 Units/L [facility] AST 40 10 - 50 Units/L [facility] Blood 05/12/2024 6:05 AM DEPUTY PROSECUTING ATTORNEY 05/12/2024 6:16 AM DEPUTY PROSECUTING ATTORNEY Cole Epperson MD LAB BLOOD ORDERABLES F inal Result [facility] [place] [address] * XR Finger 2nd Index Left (04/30/2024 2:29 PM DEPUTY PROSECUTING ATTORNEY) Anatomical Region Laterality Modality Upper Extremities, Hand, Fingers Left Computed Radiography 04/30/2024 3:04 PM DEPUTY PROSECUTING ATTORNEY Narrative 04/30/2024 3:05 PM DEPUTY PROSECUTING ATTORNEY EXAM DESCRIPTION: XR FINGER 2ND INDEX LEFT [...] PM T: ??04/30/2024 3:05 PM Report ID: [id number] Reading Location: ??[id number] Procedure Note Wilver Morales MD - 04/30/2024 [...] by Wilver Morales M.D. JR: Report ID: [id number] Reading Location: [place] [address] Peter Marshall MD IMG XR PROCEDURES Final Resu lt * Hepatitis panel, acute (09/27/2019 1:01 PM CDT) Hep A IgM Nonreactive Nonreactive [facility] Comment: Interpretive Data: If Hep A IgM Ab is reported as Equivocal, a new sample should be drawn in two weeks for testing. Current interpretive data was last revised on 19. Testing performed by: [facility], [address] [place] [address], [place]., [id number] Hep B core IgM Nonreactive Nonreactive Gloria [facility] ([place]) Comment: Interpretive Data If HepB Core IgM Ab is reported as Equivocal, a new sample should be drawn in two weeks for testing. Current interpretive data was last revised on 19. Testing performed by: [facility], [address] [place] [address], [place]., [address] Hep C Ab Nonreactive Nonreactive [facility] MULLER [...] on 2019. Testing performed by: [facility], [address] [place] [address]., [address] HepBsAg Nonreactive Nonreactive [facility] ([place]) Comment:Testing performed by : [facility], [address] [place] [address]., [id number] Blood specimen (specimen) 09/27/2019 1:01 PM CDT 09/27/2019 7:26 PM CDT Quinn Cota MD LAB MICROBIOLOGY - GENERAL TISHA WOODALL Final Result [facility] [address] 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 Source: [facility]. Last positive 05/05/24 Madeleine Kirby RN 05/04/2024 05/12/[address] [place] [address] Advance Directives For more information, please contact: [phone] * Full Code (Latest Code Status on File) Date Activated Date Inactivated Comments 05/26/2024 11:46 AM 05/28/2024 7:35 PM * Full Code Date Activated Date Inactivated Comments 05/12/2024 8:40 PM 05/19/2024 8:19 PM Care Teams Courtesy Driver Relationship Specialty Start Date End Date No, Physician PCP - General 06/07/24 Ashley Woodward MD Internal Medicine 06/07/24 Ashley Woodward MD 08/06/23
--- OUTSIDE RECORDS SUMMARY | 2024-07-04 21:23 | XMS_ITS | Patient Health Summary ---
Author Organization [facility] Home Delivery Service (HDS) Address [address] [place] [address] Care Team Providers Care Stained Glass Artist Name Role Phone None, Physician Primary Care Provider Unavailabl e Note from [facility],non-owned Affiliates and Associated Physician Practices is amultiple site organization consisting of ambulatory clinics and hospital sitesin [place], [place], [place] and [place]. This disclosure is being madepursuant to the Care Everywhere program and may not contain all information available regarding this patient. Last updated 18.[facility] Home Delivery Service (HDS) Allergies * Penicillin G(Unknown) Medications * Be [...] Comments Blood Pressure 120/84 06/27/2024 12:19 PM LICENSED OPTICAL DISPENSER Pulse 89 06/27/2024 12:19 PM LICENSED OPTICAL DISPENSER Temperature 36.8 ??C (98.2 ??F) 06/27/2024 3:26 AM CS T Respiratory Rate 16 06/27/2024 12:19 PM LICENSED OPTICAL DISPENSER Oxygen Saturation 97% 06/27/2024 12:19 PM LICENSED OPTICAL DISPENSER Inhaled Oxygen Concentration - - Weight 81.6 kg (180 lb) 06/20/2024 1:22 AM LICENSED OPTICAL DISPENSER Height 177.8 cm (5' 10 ) 06/20/2024 1:22 AM LICENSED OPTICAL DISPENSER Body Mass Index 25.83 06/20/2024 1:22 AM LICENSED OPTICAL DISPENSER Procedures * LEVETIRACETAM LEVEL(Performed 06/27/2024) * CARBAMAZEPINE [...] GLOBAL HEMOSTASIS W/ LYSIS (06/27/2024 4:55 AM LICENSED OPTICAL DISPENSER) Pathologist [facility] Citrated Kaolin R (Reaction Time) 4.7 4.6 - 9.1 min 06/27/2024 6:09 AM [facility] Citrated Kaolin LY30 (Lysis) 0.5 0.0 - 2.6 % 06/27/2024 6:09 AM [facility] Citrated Functional Fibrinogen MA (Max Amplitude) 18.0 15.0 - 32.0 mm 06/27/2024 6:09 AM [facility] Citrated RapidTEG MA (Max Amplitude) 60.6 52.0 - 70.0 mm 06/27/2024 6:09 AM [facility] Blood BLOOD SPECIMEN / Unknown Venipuncture / Unknown 06/27/2024 4:55 AM LICENSED OPTICAL DISPENSER 06/27/2024 5:10 AM [facility] Shama Hutchins MD LAB - HEMATOLOGY ORD ERABLES Performing Organization Address City/State/[facility] Co de Phone Number [address] [address] [phone] * (ABNORMAL) TEG 6S PLATELET MAPPING (06/27/2024 4:55 AM LICENSED OPTICAL DISPENSER) [facility] TEGPLM (Max Amplitude) Koalin 60.0 53.0 - 68.0 mm 06/27/2024 6:09 AM [facility] TEGPLM (Max Amplitude) ACTF 7.3 2.0 - 19.0 mm 06/27/2024 6:09 AM [facility] TEGPLM (Max Amplitude) ADP 34.1(L) 45.0 - 69.0 mm 06/27/2024 6:09 AM [facility] Comment:ADP MA below normal range. Inhibition present. TEGPLM (Max Amplitude) AA 44.3(L) 51.0 - 71.0 mm 06/27/2024 6:09 AM [facility] Comment:AA MA below normal r cleo. Inhibition present. TEGPLM %Inhibition ADP 49.1(H) 0.0 - 17.0 % 06/27/2024 6:09 AM LICENSED OPTICAL DISPENSER [facility] TEGPLM %Inhibition AA 29.8(H) 0.0 - 11.0 % 06/27/2024 6:09 AM [facility] TEGPLM %Aggregation ADP 50.9(L) 83.0 - 100.0 % 06/27/2024 6:09 AM [facility] TEGPLM % Aggregation AA 70.2(L) 89.0 - 100.0 % 06/27/2024 6:09 AM [facility] Blood BLOOD SPECIMEN / Unknown Venipuncture / Unknown 06/27/2024 4:55 AM LICENSED OPTICAL DISPENSER 06/27/2024 5:10 AM LICENSED OPTICAL DISPENSER Shama Hutchins MD LAB - HEMATOLOGY ORD ERABLES [facility] [address] [place] [address], [place] [phone] * PT-INR [facility] (06/27/2024 4:55 AM LICENSED OPTICAL DISPENSER) Only the most recent of4 resultswithin the time period is included. PT 12.2 12.1 - 14.8 Seconds 06/27/2024 6:22 AM [facility] INR 0.9 See Comment 06/27/2024 6:22 AM [facility] Comment:The suggested therap eutic range for standard coumadin (warfarin) therapy is an INR of 2.0-3.0. For high-risk patients (Mechanical Mitral Valve Prosthesis, etc.), the suggested prophylactic therapeutic range is an INR of 2.5-3.5. Blood BLOOD SPECIMEN / Unknown Venipuncture / Unknown 06/27/2024 4:55 AM LICENSED OPTICAL DISPENSER 06/27/2024 5:56 AM LICENSED OPTICAL DISPENSER Shama Hutchins MD LAB - COAGULATION OR DERABLES [facility] [address] [place] [address], [place] [phone] * LEVETIRACETAM LEVEL (06/27/2024 4:55 AM LICENSED OPTICAL DISPENSER) Only the most recent of5 resultswithin the time period is included. Pathologist [facility] Levetiracetam 30 10 - 40 ug/mL 06/29/2024 6:20 AM LICENSED OPTICAL DISPENSER [facility] ([facility]) Comment: INTERPRETIVE INFORMATION: Keppra (Levetiracetam) Therapeutic Range: ??10-40 ug/mL ?Toxic: ??Not well Established Pharmacokinetics of levetiracetam are affected by renal function. Adverse effects may include somnolence, weakness, headache and vomiting. This levetiracetam (Keppra) immunoassay uses the [employer] reagents, which has known cross-reactivity with the drug brivaracetam (Briviact) and may report inaccurate results. Patients transitioning from levetiracetam to brivaracetam or those who are using both medications should not monitor drug concentrations with the [employer] assay. These patients should be monitored using a validated chromatographic methodology that distinguishes between drugs to determine drug concentrations. Performed By: [employer]) [address] [place] [address] Information Strategist: Miguel Pizano MD, PhD CLIA Number: [id number] Blood BLOOD SPECIMEN / Unknown Venipuncture / Unknown 06/27/2024 4:55 AM LICENSED OPTICAL DISPENSER 06/27/2024 5:05 AM LICENSED OPTICAL DISPENSER Shama Hutchins MD LAB - THERAPEUTIC DR MASTERSON MONITORING ORDERABLES [facility] [employer] [facility]) [address] [place] [address], [facility] * (ABNORMAL) CBC W AUTO DIFFERENTIAL (06/27/2024 4:55 AM LICENSED OPTICAL DISPENSER) Only the most recent of37 resultswithin the time period is included. [facility] WBC 13.6(H) 4.0 - 10.7 x10E9/L 06/27/2024 5:20 AM [facility] RBC Count 4.25(L) 4.30 - 5.80 x10E12/L 06/27/2024 5:20 AM [facility] Hemoglobin 12.6(L) 13.3 - 17.5 g/dL 06/27/2024 5:20 AM [facility] Hematocrit 37.4(L) 38.7 - 51.1 % 06/27/2024 5:20 AM [facility] MCV 88.0 80.0 - 98.0 fL 06/27/2024 5:20 AM [facility] MCH 29.6 26.7 - 33.6 pg 06/27/2024 5:20 AM [facility] MCHC 33.7 31.7 - 36.3 g/dL 06/27/2024 5:20 AM [facility] RDW-CV 11.9 11.3 - 14.8 % 06/27/2024 5:20 AM [facility] Platelet Count 293 150 - 420 x10E9/L 06/27/2024 5:20 AM [facility] MPV 9.5 7.8 - 11.4 fL 06/27/2024 5:20 AM [facility] Neutrophil % 72.9 41.0 - 74.0 % 06/27/2024 5:20 AM [facility] Lymphocyte % 18.0 17.0 - 47.0 % 06/27/2024 5:20 AM [facility] Monocyte % 6.8 3.0 - 11.0 % 06/27/2024 5:20 AM [facility] Eosinophil % 1.6 0.0 - 7.0 % 06/27/2024 5:20 AM [facility] Basophil % 0.3 0.0 - 1.6 % 06/27/2024 5:20 AM [facility] Immature Granulocytes % 0.4 0.0 - 1.0 % 06/27/2024 5:20 AM [facility] Neutrophil Absolute 9.90(H) 1.60 - 7.50 x10E9/L 06/27/2024 5:20 AM [facility] Lymphocyte Absolute 2.45 1.00 - 4.40 x10E9/L 06/27/2024 5:20 AM [facility] Monocyte Absolute 0.93 0.15 - 1.00 x10E9/L 06/27/2024 5:20 AM [facility] Eosinophil Absolute 0.22 0.00 - 0.60 x10E9/L 06/27/2024 5:20 AM [facility] Basophil Absolute 0.04 0.00 - 0.13 x10E9/L 06/27/2024 5:20 AM [facility] Blood BLOOD SPECIMEN / Unknown Venipuncture / Unknown 06/27/2024 4:55 AM LICENSED OPTICAL DISPENSER 06/27/2024 5:11 AM LICENSED OPTICAL DISPENSER Shama Hutchins MD LAB - HEMATOLOGY ORD ERABLES [facility] [address] [place] [address], [facility] [phone] * (ABNORMAL) COMPREHENSIVE METABOLIC PANEL (06/27/2024 4:55 AM [facility]) Only the most recent of8 resultswithin the time period is included. BUN 7 7 - 26 mg/dL 06/27/2024 5:40 AM [facility] Creatinine 0.62(L) 0.71 - 1.16 mg/dL 06/27/2024 5:40 AM [facility] Sodium 142 136 - 145 mmol/L 06/27/2024 5:40 AM [facility] Potassium 4.5 3.5 - 4.5 mmol/L 06/27/2024 5:40 AM [facility] Chloride 110(H) 98 - 107 mmol/L 06/27/2024 5:40 AM [facility] CO2 27 22 - 29 mmol/L 06/27/2024 5:40 AM [facility] Glucose 100(H) 70 - 99 mg/dL 06/27/2024 5:40 AM [facility] Calcium 9.1 8.4 - 10.2 mg/dL 06/27/2024 5:40 AM [facility] Protein Total 6.6 6.0 - 8.3 g/dL 06/27/2024 5:40 AM [facility] Albumin 4.0 3.4 - 5.0 g/dL 06/27/2024 5:40 AM [facility] Bilirubin Total 0.3 0.2 - 1.2 mg/dL 06/27/2024 5:40 AM [facility] Alkaline Phosphatase 66 40 - 150 U/L 06/27/2024 5:40 AM [facility] ALT 19 5 - 55 U/L 06/27/2024 5:40 AM [facility] AST 31 5 - 34 U/L 06/27/2024 5:40 AM [facility] Anion Gap 5(L) 6 - 16 06/27/2024 5:40 AM [facility] BUN/Creatinine Ratio 11 7 - 23 06/27/2024 5:40 AM [facility] Osmolality Calculated 292 275 - 295 mOsm/kg 06/27/2024 5:40 AM [facility] Albumin/Globulin Ratio 1.5 1.1 - 2.3 06/27/2024 5:40 AM [facility] eGFR by CKD-EPI >90 >=90 mL/min/1.7 3 m2 06/27/2024 5:40 AM [facility] Blood BLOOD SPECIMEN / Unknown Venipuncture / Unknown 06/27/2024 4:55 AM LICENSED OPTICAL DISPENSER 06/27/2024 5:11 AM LICENSED OPTICAL DISPENSER Shama Hutchins MD LAB - CHEMISTRY TISHA WOODALL [address] [address], [facility] [phone] * MAGNESIUM BLOOD (06/27/2024 4:55 AM LICENSED OPTICAL DISPENSER) Only the most recent of9 resultswithin the time period is included. Magnesium 2.0 1.6 - 2.6 mg/dL 06/27/2024 5:40 AM [facility] Blood BLOOD SPECIMEN / Unknown Venipuncture / Unknown 06/27/2024 4:55 AM LICENSED OPTICAL DISPENSER 06/27/2024 5:11 AM LICENSED OPTICAL DISPENSER Shama Hutchins MD LAB - CHEMISTRY TISHA WOODALL [address] [address], [place] [phone] * ALCOHOL ETHYL BLOOD (06/27/2024 4:55 AM LICENSED OPTICAL DISPENSER) Only the most recent of3 resultswithin the time period is included. Ethanol (mg/dL) <10 <10 mg/dL 5:40 AM [facility] Ethanol Calculated (g/dL) <0.010 <=0.010 g/dL 06/27/2024 5:40 AM [facility] Blood BLOOD SPECIMEN / Unknown Venipuncture / Unknown 06/27/2024 4:55 AM LICENSED OPTICAL DISPENSER 06/27/2024 5:11 AM LICENSED OPTICAL DISPENSER Narrative [facility] - 06/27/2024 5:40 AM LICENSED OPTICAL DISPENSER Ethanol Interp <10: None Detected. Depression of POWER ENGINEER: >100 mg/dl Potentially Critical: >250 mg/dl Potentially [...] - CHEMISTRY TISHA WOODALL Performing Organization Address City/[facility]/ZIP Co de Phone Number [address] [address], [facility] [phone] * (ABNORMAL) VALPROIC ACID LEVEL (06/27/2024 4:55 AM LICENSED OPTICAL DISPENSER) Only the most recent of7 resultswithin the time period is included. Valproic Acid Total <13(L) 50 - 100 ug/mL 06/27/2024 5:44 AM [facility] Blood BLOOD SPECIMEN / Unknown Venipuncture / Unknown 06/27/2024 4:55 AM LICENSED OPTICAL DISPENSER 06/27/2024 5:16 AM LICENSED OPTICAL DISPENSER Shama Hutchins MD LAB - CHEMISTRY TISHA WOODALL [address] [address], [facility] [phone] * (ABNORMAL) CARBAMAZEPINE LEVEL TOTAL (06/27/2024 4:55 AM LICENSED OPTICAL DISPENSER) Only the most recent of7 resultswithin the time period is included. Carbamazepine, trough <1.9(L) 4.0 - 12.0 ug/mL 06/27/2024 5:44 AM LICENSED OPTICAL DISPENSER [facility] Blood BLOOD SPECIMEN / Unknown Venipuncture / Unknown 06/27/2024 4:55 AM LICENSED OPTICAL DISPENSER 06/27/2024 5:16 AM LICENSED OPTICAL DISPENSER Shama Hutchins MD LAB - CHEMISTRY TISHA WOODALL [facility] [address] [place] [address], [facility] [phone] * CT Head Wo Contrast (06/27/2024 3:53 AM LICENSED OPTICAL DISPENSER) Only the most recent of6 resultswithin the time period is included. Anatomical Region Laterality Modality Head Computed Tomogra phy 06/27/2024 4:36 AM LICENSED OPTICAL DISPENSER Impressions 06/27/2024 12:55 PM LICENSED OPTICAL DISPENSER IMPRESSION: 1.Streak artifact from the embolization material in the right frontal lobe limits evaluation. Within the limitations of this exam, no large acute intracranial hemorrhage or mass effect is identified. 2.A left parietal scalp contusion/hematoma with overlying skin gonzalo. No acute calvarial fractures. > Dictated by Mark Orozco DO (Outside Contractor Sales), 06/27/2024 4:55 AM. IPopeye MD have personally reviewed and interpreted this examination/study. > Interpreting Provider: Popeye Hughes MD on 06/27/2024 12:55 PM Narrative 06/27/2024 12:55 PM LICENSED OPTICAL DISPENSER PROCEDURE: ??CT HEAD WO CONTRAST, DATE/TIME OF EXAM: ??06/27/2024 3:54 AM, LOCATION ??[facility] INDICATION: S09.90XA: Traumatic injury of head, [...] DATE/TIME OF EXAM: 06/27/2024 3:54 AM, LOCATION [facility] INDICATION: S09.90XA: Traumatic injury of head, [...] fractures. > Dictated by Mark Orozco DO (Outside Contractor Sales), 06/27/2024 4:55AM. I, Popeye Hughes MD have personally reviewed and interpreted this examination/study. > Interpreting Provider: Popeye Hughes MD on 06/27/2024 12:[address] MD [address] ORDERABLES * (ABNORMAL) LACTIC ACID BLOOD REFLEX TO REPEAT (06/17/2024 9:45 AM LICENSED OPTICAL DISPENSER) Lactic Acid 3.3(HH) <=2.0 mmol/L 06/17/2024 10:23 AM LICENSED OPTICAL DISPENSER [facility] Blood BLOOD SPECIMEN / Unknown Venipuncture / Unknown 06/17/2024 9:45 AM LICENSED OPTICAL DISPENSER 06/17/2024 9:51 AM LICENSED OPTICAL DISPENSER James Ogden MD LAB - CHEMISTRY TISHA WOODALL Performing Organization Address [facility] Co de Phone Number [facility] [address] [place] [address] * HYDROXYBUTYRATE BETA (06/17/2024 9:45 AM LICENSED OPTICAL DISPENSER) Beta-Hydroxybu tyrate <0.50 <0.50 mmol/L 06/17/2024 10:23 AM LICENSED OPTICAL DISPENSER [facility] Blood BLOOD SPECIMEN / Unknown Venipuncture / Unknown 06/17/2024 9:45 AM LICENSED OPTICAL DISPENSER 06/17/2024 9:51 AM LICENSED OPTICAL DISPENSER Narrative [facility] - 06/17/2024 10:23 AM LICENSED OPTICAL DISPENSER Results >1.5 mmol/L may be indicative of diabetic ketoacidosis. Use in conjunction with Serum Glucose levels. James Ogden MD LAB - CHEMISTRY TISHA WOODALL Performing Organization Address [facility] Co de Phone Number [facility] [address] [place] [address] * Incision/Drainage (06/15/2024 1:50 AM LICENSED OPTICAL DISPENSER) Narrative Zane Huynh MD - 06/15/2024 1:50 AM LICENSED OPTICAL DISPENSER Zane Huynh MD ? 06/15/2024 ??2:07 AM Incision/Drainage Date/Time: 06/15/2024 1:50 AM Performed by: Vinay Swete DPM Authorized by: Zane Huynh MD ?? [...] Left 3Vw or More (06/13/2024 10:44 AM LICENSED OPTICAL DISPENSER) Anatomical Region Laterality Modality Wrist / Hand Digital Radiogra phy 06/13/2024 10:4 5 AM LICENSED OPTICAL DISPENSER Impressions 06/13/2024 11:03 AM LICENSED OPTICAL DISPENSER IMPRESSION: 1. Second digit amputation. 2. No acute osseous abnormality. Report was dictated by Levar Hutchinson MD, ([facility] resident). I, Cristiana Hernández MD have personally reviewed and interpreted this examination/study. > Interpreting Provider: Cristiana Hernández MD on 06/13/2024 11:03 AM Narrative 06/13/2024 11:03 AM LICENSED OPTICAL DISPENSER PROCEDURE: ??XR HAND LEFT 3VW OR MORE, DATE/TIME OF EXAM: ??06/13/2024 10:45 AM, LOCATION ??[facility] INDICATION: S61.402A: Open wound of left [...] DATE/TIME OF EXAM: 06/13/2024 10:45 AM, LOCATION [facility] INDICATION: S61.402A: Open wound of left [...] Report was dictated by Levar Hutchinson MD, ([facility] resident). I, Cristiana Hernández MD have personally reviewed and interpreted this examination/study. > Interpreting Provider: Cristiana Hernández MD on 06/13/2024 11:03 AM Ara Saleem MD DIAGNOSTIC IMAGING O RDERABLES * CULTURE WOUND+GRAM STAIN (06/13/2024 10:29 AM LICENSED OPTICAL DISPENSER) Culture Rare normal skin anand BRIANA 06/16/2024 4:00 PM [facility] Gram Stain Rare Polymorphonuclear cells 06/16/2024 4:00 PM [facility] Gram Stain No organisms seen 025 4:00 PM [facility] Microbiology SPECIMEN FROM WOUND / Unknown Collection / Unknown 06/13/2024 10:29 AM LICENSED OPTICAL DISPENSER 06/13/2024 10:34 AM LICENSED OPTICAL DISPENSER Ara Saleem MD LAB - MICROBIOLOGY O RDERABLES [facility] [address] [place] [address], [facility] [phone] * (ABNORMAL) URINE DRUG SCREEN IMMUNOASSAY (06/11/2024 11:34 AM LICENSED OPTICAL DISPENSER) Amphetamines Screen Urine Positive(A) Negative : < 1000 ng/mL 06/11/2024 12:15 PM [facility] Comment: Positive urine amphetamine screening results should be confirmed by another generally accepted non-immunological method such as gas chromatography or mass spectrometry. ? Barbiturates Screen Urine Negative Negative : < 200 ng/mL 06/11/2024 12:15 PM [facility] Benzodiazepine Screen Urine Negative Negative : < 200 ng/mL 06/11/2024 12:15 PM [facility] Opiates Urine Negative Negative : < 300 ng/mL 06/11/2024 12:15 PM [facility] Cocaine Metabolites Urine Negative Negative : < 300 ng/mL 06/11/2024 12:15 PM [facility] Phencyclidine Screen Urine Negative Negative : < 25 ng/ml 06/11/2024 12:15 PM [facility] Cannabinoids Screen Urine Positive(A) Negative : <50 ng/mL 06/11/2024 12:15 PM [facility] Comment:Positive urine canna binoids (THC) screening results should be confirmed by another generally accepted non-immunological method such as gas chromatography or mass spectrometry. Methadone Screen Urine Negative Negative : < 300 ng/mL 06/11/2024 12:15 PM [facility] Fentanyl Screen Urine Negative Negative : <1.5 ng/mL 06/11/2024 12:15 PM [facility] Urine URINE / Unknown Collection / Unknown 06/11/2024 11:34 AM LICENSED OPTICAL DISPENSER 06/11/2024 11:45 AM [facility] Narrative [facility] - 06/11/2024 12:15 PM LICENSED OPTICAL DISPENSER The Urine Toxicology Screening Panel does not screen for Propoxyphene, Meprobamate, Carisoprodol, Trazodone, semn-bgi-lzqjknl medications and/or volatiles (Acetone, Isopropanol, Methanol or Ethylene Glycol). Ethanol, Salicylate, Acetaminophen, Tricyclic Antidepressants and several therapeutic drugs may be individually assayed in serum or plasma specimen. Toxicology testing by the [facility] is an aid to medical diagnosis and treatment of patients. No documented chain of custody was maintained. Results are intended to be used for clinical purposes only. ? Shivani Mccall MD LAB - URINE CHEMISTR Y ORDERABLES Performing Organization Address [facility]/State/[facility] Co de Phone Number [address] [address], [place] [phone] * (ABNORMAL) BASIC METABOLIC PANEL (CALCIUM TOTAL) (06/11/2024 10:52 AM [facility]) Only the most recent of14 resultswithin the time period is included. BUN 17 7 - 26 mg/dL 06/11/2024 11:30 AM [facility] Creatinine 0.64(L) 0.71 - 1.16 mg/dL 06/11/2024 11:30 AM [facility] Sodium 138 136 - 145 mmol/L 06/11/2024 11:30 AM [facility] Potassium 3.9 3.5 - 4.5 mmol/L 06/11/2024 11:30 AM [facility] Chloride 106 98 - 107 mmol/L 06/11/2024 11:30 AM [facility] CO2 24 22 - 29 mmol/L 06/11/2024 11:30 AM [facility] Glucose 133(H) 70 - 99 mg/dL 06/11/2024 11:30 AM [facility] Calcium 8.9 8.4 - 10.2 mg/dL 06/11/2024 11:30 AM [facility] Anion Gap 8 6 - 16 06/11/2024 11:30 AM [facility] BUN/Creatinine Ratio 27(H) 7 - 23 06/11/2024 11:30 AM [facility] Osmolality Calculated 289 275 - 295 mOsm/kg 06/11/2024 11:30 AM [facility] eGFR by CKD-EPI >90 >=90 mL/min/1.7 3 m2 06/11/2024 11:30 AM [facility] Blood BLOOD SPECIMEN / Unknown Venipuncture / Unknown 06/11/2024 10:52 AM [facility] 06/11/2024 11:04 AM [facility] Shivani Mccall MD LAB - CHEMISTRY TISHA WOODALL Performing Organization Address [facility]/State/ZIP Co de Phone Number [facility] [address] [place] [address], [facility] [phone] * VITAMIN D 25-HYDROXY (03/25/2022 9:39 AM CDT) Pathologist [facility] Vitamin D, 25 Hydroxy 59.0 30.0 - 80.0 ng/mL 03/25/2022 11:06 AM CDT [facility] Comment: The recommendations for 25-Hydroxy Vitamin D [...] AM CDT 03/25/2022 10:15 AM CDT Anupam Genao MD LAB - CHEMISTRY ORDERABLES Performing Organization Address City/[facility]/ZIP Co de Phone Number [address] [address], [facility] [phone] * LAB MISC TEST (01/11/2019 4:20 PM CDT) Pathologist [facility] Test Name SEE SCANNED REPORT 01/14/2019 9:05 AM CDT [facility] Blood BLOOD SPECIMEN / Unknown Lab Venipuncture / Unknown 01/11/2019 4:20 PM CDT 01/11/2019 4:23 PM CDT Montrell Hook DO LAB SEND OUT Performing Organization Address City/[facility]/ZIP Co de Phone Number [facility] [address] [place] [address] * (ABNORMAL) CK ISOENZYMES PANEL (05/04/2017 4:22 PM LICENSED OPTICAL DISPENSER) CK Total 222(H) 24 - 204 U/L [facility] Macro Type 2 0 Not Observed % [facility] CK-MM 100 97 - 100 % [facility] Macro Type 1 0 Not Observed % [facility] (H) CK-MB 0 0 - 3 % [facility] CK-BB 0 0 % [facility] Blood specimen (specimen) BLOOD SPECIMEN / Unknown 05/04/2017 4:22 PM LICENSED OPTICAL DISPENSER 05/04/2017 4:29 PM LICENSED OPTICAL DISPENSER Narrative [facility] ([facility]) - 05/07/2017 4:20 PM LICENSED OPTICAL DISPENSER Performed at: ??01 - [facility] [address] [place], [place] ??[id number] Route Salesman And Driver: Alexander Flores PhD, Phone: ??[phone] Anupam Genao MD LAB - CHEMISTRY ORDERABLES [facility] ([facility]) [address] [place] [address] * IR CAROTID CEREBRAL ANGIOGRAM (08/31/2016 12:19 [...] catheter angiography to look for recurrent AVM. Supervisor Smoke Control: Varghese Almeida Vessels: Right internal carotid artery [...] and cannulate right femoral artery. ??A 6 Brazilian 30 cm Brite tip sheath was placed in the right femoral artery and a 5 Brazilian angled glide wire was navigated into the [...] system. Hemostasis was achieved using a 6 Brazilian Angio-Seal closure device. Hemostasis was immediate at [...] catheter angiography to look for recurrent AVM. Supervisor Smoke Control: Varghese Carroll Copisela Vessels: Right internal carotid [...] localize and cannulateright femoral artery. A 6 Brazilian 30 cm Brite tip sheath was placed in theright femoral artery and a 5 Brazilian angled glide wire was navigated into the [...] arterial system.Hemostasis was achieved using a 6 Brazilian Angio-Seal closure device.Hemostasis was immediate at the [...] Jessenia Brown MD IR ORDERABLES * IR US GUIDE [...] catheter angiography to look for recurrent AVM. Supervisor Smoke Control: Varghese Almeida Vessels: Right internal carotid artery [...] and cannulate right femoral artery. ??A 6 Brazilian 30 cm Brite tip sheath was placed in the right femoral artery and a 5 Brazilian angled glide wire was navigated into the [...] system. Hemostasis was achieved using a 6 Brazilian Angio-Seal closure device. Hemostasis was immediate at [...] catheter angiography to look for recurrent AVM. Supervisor Smoke Control: Varghese Carroll Coppens Vessels: Right internal carotid [...] localize and cannulateright femoral artery. A 6 Brazilian 30 cm Brite tip sheath was placed in theright femoral artery and a 5 Brazilian angled glide wire was navigated into the [...] arterial system.Hemostasis was achieved using a 6 Brazilian Angio-Seal closure device.Hemostasis was immediate at the [...] MRI BRAIN WWO CONTRAST (06/22/2016 4:48 PM LICENSED OPTICAL DISPENSER) Anatomical Region Laterality Modality Head Other Impressions 06/23/2016 8:30 AM LICENSED OPTICAL DISPENSER IMPRESSION: 1. Evolving intraparenchymal hematoma along the [...] 8:30 AM . Narrative 06/23/2016 8:30 AM LICENSED OPTICAL DISPENSER EXAMINATION: Magnetic resonance imaging (MRI) of the [...] ORDERABLES * CREATININE BLOOD - POCT (IP) [facility] (06/22/2016) Creatinine POCT 1.03 0.3 - 1.3 mg/dL [facility] eGFR POCT 60 60 ml/min [facility] 06/22/2016 Mateo Overton MD LAB - POINT OF CARE ORDERABLES [facility] * PHOSPHORUS BLOOD (05/01/2016 4:40 AM LICENSED OPTICAL DISPENSER) Only the most recent of8 resultswithin the time period is included. Phosphorus 4.2 2.3 - 4.7 mg/dL [facility] Blood specimen (specimen) BLOOD SPECIMEN / Unknown 05/01/2016 4:40 AM LICENSED OPTICAL DISPENSER 05/01/2016 4:55 AM LICENSED OPTICAL DISPENSER Abdi Tracey MD LAB - CHEMISTRY [facility] [address] [phone] * (ABNORMAL) DIFFERENTIAL MANUAL (05/01/2016 4:40 AM LICENSED OPTICAL DISPENSER) Only the most recent of2 resultswithin the time period is included. WBC (corrected for NRBC) 10.5 10? 3 /uL [facility] Total Cell Count 100 [facility] Neutrophils Absolute Manual 4.41 1.60 - 7.00 10? 3 /uL [facility] Comment:(BANDS+SEGS) x WBC = NEUT # (ANC) Lymphocyte Absolute Manual 4.52(H) 0.80 - 2.90 10? 3 /uL [facility] Monocytes Absolute Manual 0.95(H) 0.14 - 0.66 10? 3 /uL [facility] Eosinophils Absolute Manual 0.42(H) 0.00 - 0.22 10? 3 /uL [facility] Basophil Absolute Manual 0.11(H) 0.00 - 0.06 10? 3 /uL [facility] Band % Manual 3 0 - 10 % [facility] Neutrophil % Manual 39 30 - 60 % [facility] Lymphocyte % Manual 43 20 - 45 % [facility] Monocytes % Manual 9 2 - 10 % [facility] Eosinophils % Manual 4 1 - 6 % [facility] Basophils % Manual 1 0 - 3 % [facility] Atypical Lymphocyte % Manual 1(H) 0 % [facility] Platelet Estimate Adequate Adequate [facility] RBC Morphology Normal [facility] Blood specimen (specimen) BLOOD SPECIMEN / Unknown 05/01/2016 4:40 AM LICENSED OPTICAL DISPENSER 05/01/2016 4:55 AM LICENSED OPTICAL DISPENSER Abdi Tracey MD LAB - HEMATOLOGY ORD ERABLES [facility] [address] [place] [address], [facility] [phone] * IR VASCULAR CLOSURE DEVICE (04/27/2016 11:37 AM LICENSED OPTICAL DISPENSER) Anatomical Region Laterality Modality Other Impressions 05/01/2016 12:26 PM LICENSED OPTICAL DISPENSER Impression: 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 This report was electronically signed by JESSENIA BROWN M.D. ??on 05/01/2016 12:26 PM . Narrative 05/01/2016 12:26 PM LICENSED OPTICAL DISPENSER Procedure: AVM Embolizatin 04/27/16 Comparison study: 04/20/16 History: The patient a 30 years -year-old Male. Who presents with R frontal AVM ??He is here for embolization using Bishop 18 liquid embolic of residual AVM nidus. Supervisor Smoke Control: Varghese Brown Vessels: Right internal carotid artery angiogram: Cerebral Microcatheterization of intracranial right internal carotid and middle cerebral artery Microcatheter angiography right middle cerebral artery Embolization with Avalon 18 liquid embolic x 1 MCA pedicle [...] underwent prep and drape procedures. A 6 Brazilian 30 cm Brite tip sheath was placed in the right femoral artery and a 6 Brazilian [employer] Envoy Guide Catheter was navigated into the aortic arch. The catheter was used to select the ??brachiocephalic artery followed by the right common carotid artery and finally the right internal carotid artery and a cerebral angiogram was obtained. An [place] detachable tip microcatheter and Synchro 10 microwire were navigated intracranially and used to select a MCA nidal pedicle. A microcatheter angiogram was then performed through the [place]. Bishop 18 liquid embolic was used to completely occlude the nidus. Angiograms through the existing catheter were performed. The right femoral artery angiogram was obtained through the sheath. All catheters and sheaths were removed from the arterial system. Hemostasis was achieved using a 6 Brazilian Angio-Seal closure device. Hemostasis was immediate at [...] AVM He is here for embolization using Avalon 18 liquid embolic ofresidual AVM nidus. Supervisor Smoke Control: Varghese Brown Vessels: Right internal carotid artery [...] underwent prep and drape procedures. A 6 Pkjija75 cm Brite tip sheath was placed in the right femoral artery and a 6French [employer] Envoy Guide Catheter was navigated into the aortic arch. The catheter was used to select thebrachiocephalic artery followed by the right common carotid artery andfinally the right internal carotid artery and a cerebral angiogram wasobtained. An [place] detachable tip microcatheter and Synchro 10 microwire were navigated intracranially andused to select a MCA nidal pedicle. A microcatheter angiogram was thenperformed through the [place]. Bishop 18 liquid embolic was used tocompletely occlude the nidus. Angiograms through the existing catheter were performed. The right femoral arteryangiogram was obtained through the sheath. All catheters and sheaths were removed from the arterial system.Hemostasis was achieved using a 6 Brazilian Angio-Seal closure device.Hemostasis was immediate at the [...] * IR 3D RENDERING (04/27/2016 11:37 AM LICENSED OPTICAL DISPENSER) Only the most recent of2 resultswithin the time period is included. 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 This report was electronically signed by JESSENIA BROWN M.D. ??on 05/01/2016 12:26 PM . Narrative 05/01/2016 12:26 PM LICENSED OPTICAL DISPENSER Procedure: AVM Embolizatin 04/27/16 Comparison study: 04/20/16 History: The patient a 30 years -year-old Male. Who presents with R frontal AVM ??He is here for embolization using Avalon 18 liquid embolic of residual AVM nidus. Supervisor Smoke Control: Varghese Brown Vessels: Right internal carotid artery angiogram: Cerebral Microcatheterization of intracranial right internal carotid and middle cerebral artery Microcatheter angiography right middle cerebral artery Embolization with Avalon 18 liquid embolic x 1 MCA pedicle [...] underwent prep and drape procedures. A 6 Brazilian 30 cm Brite tip sheath was placed in the right femoral artery and a 6 Brazilian [employer] Envoy Guide Catheter was navigated into the aortic arch. The catheter was used to select the ??brachiocephalic artery followed by the right common carotid artery and finally the right internal carotid artery and a cerebral angiogram was obtained. An [place] detachable tip microcatheter and Synchro 10 microwire were navigated intracranially and used to select a MCA nidal pedicle. A microcatheter angiogram was then performed through the [place]. Bishop 18 liquid embolic was used to completely occlude the nidus. Angiograms through the existing catheter were performed. The right femoral artery angiogram was obtained through the sheath. All catheters and sheaths were removed from the arterial system. Hemostasis was achieved using a 6 Brazilian Angio-Seal closure device. Hemostasis was immediate at [...] Bishop 18 liquid embolic ofresidual AVM nidus. Supervisor Smoke Control: Varghese Brown Vessels: Right internal carotid artery angiogram: Cerebral Microcatheterization of intracranial right internal carotid and middlecerebral artery Microcatheter angiography right middle cerebral artery Embolization with Avalon 18 liquid embolic x 1 MCA pedicle [...] underwent prep and drape procedures. A 6 Nzvnpa95 cm Brite tip sheath was placed in the right femoral artery and a 6French [employer] Envoy Guide Catheter was navigated into the aortic arch. The catheter was used to select thebrachiocephalic artery followed by the right common carotid artery andfinally the right internal carotid artery and a cerebral angiogram wasobtained. An [place] detachable tip microcatheter and Synchro 10 microwire were navigated intracranially andused to select a MCA nidal pedicle. A microcatheter angiogram was thenperformed through the [place]. Avalon 18 liquid embolic was used tocompletely occlude the nidus. Angiograms through the existing catheter were performed. The right femoral arteryangiogram was obtained through the sheath. All catheters and sheaths were removed from the arterial system.Hemostasis was achieved using a 6 Brazilian Angio-Seal closure device.Hemostasis was immediate at the [...] IR EMBOLIZATION TRANSCATH THPY (04/27/2016 11:37 AM LICENSED OPTICAL DISPENSER) Only the most recent of4 resultswithin the time period is included. 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 This report was electronically signed by JESSENIA BROWN M.D. ??on 05/01/2016 12:26 PM . Narrative 05/01/2016 12:26 PM LICENSED OPTICAL DISPENSER Procedure: AVM Embolizatin 04/27/16 Comparison study: 04/20/16 History: The patient a 30 years -year-old Male. Who presents with R frontal AVM ??He is here for embolization using Avalon 18 liquid embolic of residual AVM nidus. Supervisor Smoke Control: Varghese Brown Vessels: Right internal carotid artery angiogram: Cerebral Microcatheterization of intracranial right internal carotid and middle cerebral artery Microcatheter angiography right middle cerebral artery Embolization with Avalon 18 liquid embolic x 1 MCA pedicle [...] underwent prep and drape procedures. A 6 Brazilian 30 cm Brite tip sheath was placed in the right femoral artery and a 6 Brazilian [employer] Guide Catheter was navigated into the aortic arch. The catheter was used to select the ??brachiocephalic artery followed by the right common carotid artery and finally the right internal carotid artery and a cerebral angiogram was obtained. An [place] detachable tip microcatheter and Synchro 10 microwire were navigated intracranially and used to select a MCA nidal pedicle. A microcatheter angiogram was then performed through the [place]. Bishop 18 liquid embolic was used to completely occlude the nidus. Angiograms through the existing catheter were performed. The right femoral artery angiogram was obtained through the sheath. All catheters and sheaths were removed from the arterial system. Hemostasis was achieved using a 6 Brazilian Angio-Seal closure device. Hemostasis was immediate at [...] Bishop 18 liquid embolic ofresidual AVM nidus. Supervisor Smoke Control: Varghese Brown Vessels: Right internal carotid artery angiogram: Cerebral Microcatheterization of intracranial right internal carotid and middlecerebral artery Microcatheter angiography right middle cerebral artery Embolization with Avalon 18 liquid embolic x 1 MCA pedicle [...] underwent prep and drape procedures. A 6 Puvatr09 cm Brite tip sheath was placed in the right femoral artery and a 6French [employer] Envoy Guide Catheter was navigated into the aortic arch. The catheter was used to select thebrachiocephalic artery followed by the right common carotid artery andfinally the right internal carotid artery and a cerebral angiogram wasobtained. An [place] detachable tip microcatheter and Synchro 10 microwire were navigated intracranially andused to select a MCA nidal pedicle. A microcatheter angiogram was thenperformed through the [place]. Avalon 18 liquid embolic was used tocompletely occlude the nidus. Angiograms through the existing catheter were performed. The right femoral arteryangiogram was obtained through the sheath. All catheters and sheaths were removed from the arterial system.Hemostasis was achieved using a 6 Brazilian Angio-Seal closure device.Hemostasis was immediate at the [...] CT ANGIO BRAIN STEREOTACTIC (04/27/2016 4:42 AM LICENSED OPTICAL DISPENSER) Anatomical Region Laterality Modality Head Other Impressions 04/27/2016 6:27 AM LICENSED OPTICAL DISPENSER IMPRESSION: 1. CT localization of the cerebral vasculature and a right frontal intraparenchymal hematoma for treatment planning. This report was electronically signed by MATEO OVERTON M.D. ??on 04/27/2016 6:27 AM . Narrative 04/27/2016 6:27 AM LICENSED OPTICAL DISPENSER EXAMINATION: Computed tomography (CT) of the head [...] TYPE + SCREEN PANEL (04/27/2016 12:51 AM LICENSED OPTICAL DISPENSER) Only the most recent of3 resultswithin the time period is included. Typem B NEG [facility] Antibody Screen NEG [facility] Blood specimen (specimen) 04/27/2016 12:51 AM LICENSED OPTICAL DISPENSER 04/27/2016 1:19 AM LICENSED OPTICAL DISPENSER Abdi Tracey MD LAB - BLOOD BANK ORD ERABLES Performing Organization Address [facility] Co de Phone Number [facility] [address] [place] [address] * PTT SLU (04/23/2016 2:10 PM LICENSED OPTICAL DISPENSER) APTT 27.0 23.0 - 38.4 Seconds [facility] Comment:Suggested therapeuti c range for full dose I.V. heparin therapy for venous thromboembolism is 66.0-91.0 seconds. Blood specimen (specimen) BLOOD SPECIMEN / Unknown 04/23/2016 2:10 PM LICENSED OPTICAL DISPENSER 04/23/2016 2:20 PM LICENSED OPTICAL DISPENSER Narrative [facility] - 04/23/2016 2:37 PM LICENSED OPTICAL DISPENSER Is patient on Heparin, Argatroban or Dabigatran?->N Yaw Anderson MD LAB - COAGULATION OR DERABLES Performing Organization Address City/[facility]/ZIP Co de Phone Number [address] [phone] * PATHOLOGY REVIEW TEG (04/23/2016 2:10 PM LICENSED OPTICAL DISPENSER) Pathology Review TEG [facility] Comment: PATHOLOGIST INTERPRETATION: DATE: April 24, 2016 [...] BLOOD SPECIMEN / Unknown 04/23/2016 2:10 PM LICENSED OPTICAL DISPENSER 04/23/2016 2:20 PM LICENSED OPTICAL DISPENSER Yaw Anderson MD LAB - PATHOLOGY/CYTO LOGY ORDERABLES [address] [phone] * TEG PLATELET MAPPING (04/23/2016 2:10 PM LICENSED OPTICAL DISPENSER) Pathologist [facility] G-Clot Strength 9.1 4.5 - 11.0 d/sc [facility] Pathology Review TEG Other [facility] Interpretation TEG See Comment [facility] React-Time 5.1 5.0 - 10.0 MIN [facility] K-Time 1.3 1.0 - 3.0 MIN [facility] Angle A-BB 70.8 53.0 - 72.0 Degrees [facility] MA (CK) BB 64.4 50.0 - 70.0 mm [facility] LY30 2.3 0.0 - 8.0 % [facility] BLOO D BANK LAB CI-Coagulation Index 1.6 -3.0 - 3.0 [facility] MA-ADP 43.5 Reference Range: None mm [facility] MA AA-BB 55.1 Reference Range: None mm [facility] % ADP Inhibition 38.4 Reference Range:None % [facility] % AA Inhibition 17.1 Reference Range: None % [facility] Blood specimen (specimen) BLOOD SPECIMEN / Unknown 04/23/2016 2:10 PM LICENSED OPTICAL DISPENSER 04/23/2016 2:20 PM LICENSED OPTICAL DISPENSER Narrative [facility] - 04/23/2016 3:54 PM LICENSED OPTICAL DISPENSER SEE BELOW ?TEG Kaolin Sample Type Interpretation [...] BLOOD BANK ORD ERABLES Performing Organization Address [facility] Co de Phone Number [facility] [address] * EKG 12-LEAD (04/21/2016 12:00 AM LICENSED OPTICAL DISPENSER) EKG [facility] Comment: Exam Date/Time: ?? Apr [...] available Confirmed by Barbi BLAIR, KASSANDRA ([id number]), technical writer and editor Gene Sun ([id number]) on 04/25/2016 1:01:24 PM Referred By: REFERRING NO ? Confirmed By:KASSANDRA BLAIR M.D. 04/21/2016 Jessenia Brown MD ECG ORDERABLES Performing Organization Address [facility] Co de Phone Number [facility] * (ABNORMAL) BLOOD GASES ART COMPLETE [facility] OR (04/20/2016 10:10 AM LICENSED OPTICAL DISPENSER) pH Arterial 7.35 7.35 - 7.45 [facility] pCO2 Arterial 42 35 - 45 mmHg [facility] pO2 Arterial 98 82 - 106 mmHg [facility] HCO3 Arterial 22.5 22.0 - 26.0 mmol/L [facility] TCO2 Arterial 23.8(L) 25.0 - 29.0 mmol/L [facility] Base Excess Arterial -3.0(L) -2.0 - 2.0 mmol/L [facility] Hemoglobin Arterial 11.9(L) 13.5 - 17.5 g/dL [facility] Oxyhemoglobin Arterial 93.1(L) 95.0 - 100.0 % [facility] Carboxyhemoglobin 3.5(H) 0.0 - 3.0 % [facility] Methemoglobin 0.2 0.0 - 2.0 % [facility] FI O2 Arterial 70.0 % [facility] Ionized Calcium Whole Blood 1.13 mmol/L [facility] Adjusted Ionized Calcium 1.10(L) 1.19 - 1.34 mmol/L [facility] Sodium Whole Blood 138 135 - 145 mmol/L [facility] Potassium Whole Blood 4.3 3.5 - 5.5 mmol/L [facility] Chloride Whole Blood 107 101 - 111 mmol/L [facility] Glucose Whole Blood 88 70 - 110 mg/dL [facility] Lactic Acid Whole Blood 1.8 0.5 - 3.4 mmol/L [facility] Blood specimen (specimen) 04/20/2016 10:10 AM LICENSED OPTICAL DISPENSER 04/20/2016 10:17 AM LICENSED OPTICAL DISPENSER Jason Melara MD LAB - BLOOD GASES O RDERABLES Performing Organization Address City/State/[facility] Co de Phone Number [place] [address] [address] [phone] * (ABNORMAL) BLOOD GASES ART (04/20/2016 9:25 AM LICENSED OPTICAL DISPENSER) pH Arterial 7.35 7.35 - 7.45 [facility] pCO2 Arterial 42 35 - 45 mmHg [facility] pO2 Arterial 98 82 - 106 mmHg [facility] HCO3 Arterial 22.5 22.0 - 26.0 mmol/L [facility] TCO2 Arterial 23.8(L) 25.0 - 29.0 mmol/L [facility] Base Excess Arterial -3.0(L) -2.0 - 2.0 mmol/L [facility] Hemoglobin Arterial 11.9(L) 13.5 - 17.5 g/dL [facility] Oxyhemoglobin Arterial 93.1(L) 95.0 - 100.0 % [facility] Carboxyhemoglobin 3.5(H) 0.0 - 3.0 % [facility] Methemoglobin 0.2 0.0 - 2.0 % [facility] FI O2 Arterial 70.0 % [facility] Blood specimen (specimen) BLOOD SPECIMEN / Unknown 04/20/2016 9:25 AM LICENSED OPTICAL DISPENSER 04/20/2016 9:35 AM LICENSED OPTICAL DISPENSER Jason Melara MD LAB - BLOOD GASES O SANDY Performing Organization Address City/[facility] Co de Phone Number [facility] [address] [phone] * LAB HISTORICAL RESULTS-ONBASE (03/26/2016) Only the most recent of3 resultswithin the time period is included. 03/26/2016 Historical Provider LAB - CHEMISTRY O SANDY [facility] [address] Care Teams Stained Glass Artist Relationship Specialty Start Date End Date None, Physician PCP - General 06/27/24
--- OUTSIDE RECORDS SUMMARY | 2024-07-04 21:23 | XMS_ITS | Referral Summary ---
Author Organization [facility] Address [address] [place] [address] Care Team Providers Care Maintenance Services Dispatcher Name Role Phone None, Physician Primary Care Provider Unavailabl e Source Comments [facility],non-owned Affiliates and Associated Physician Practices is amultiple site organization consisting of ambulatory clinics and hospital sitesin [place], [place], [place] and [place]. This disclosure is being madepursuant to the Care Everywhere program and may not contain all information available regarding this patient. Last updated 18.[facility] Encounters Date Type Department Care Team Description 06/27/2024 Travel 06/27/2024 3:23 AM BRASSWIND INSTRUMENT REPAIRER - 06/27/2024 12:20 PM [facility] Emergency [facility] EMERGENCY DEPARTMENT [address] [place] [phone] Shama Hutchins MD Traumatic injury of head, initial encounter (Primary Dx); Laceration of scalp, initial encounter; Seizure disorder (HCC); S/P coil embolization of cerebral aneurysm Discharge Disposition: Home or Self Care 06/21/2024 10:46 PM [facility]ASSWIND INSTRUMENT REPAIRER - 06/21/2024 11:30 PM [facility] Emergency ER at [address] [address] Discharge Disposition: Left Against Medical Advice/Discontinued Care 06/20/2024 Travel 06/20/2024 2:16 AM [facility]ASS[employer] INSTRUMENT REPAIRER - 06/20/2024 5:44 AM [facility] Emergency [facility] EMERGENCY DEPARTMENT [address] [place] [phone] Main Santos MD Left hand pain (Primary Dx) Discharge Disposition: Home or Self Care 06/18/2024 12:50 AM [facility]ASSWIND INSTRUMENT REPAIRER - 06/18/2024 1:23 AM [facility]ASS[facility] INSTRUMENT REPAIRER Emergency ER at [address] [address] Sarabjit León MD Discharge Disposition: ED Dismiss - Never Arrived 06/17/2024 - 06/18/2024 12:41 AM [facility]ASSWIND INSTRUMENT REPAIRER Emergency ER at [address] [address] 06/17/2024 9:35 AM [employer]ASSWIND INSTRUMENT REPAIRER - 06/17/2024 12:46 PM [facility]ASS[facility] INSTRUMENT REPAIRER Emergency ER at [address] [address] James Ogden MD Acute alcoholic intoxication without complication (HCC) (Primary Dx) Discharge Disposition: Left Against Medical Advice/Discontinued Care 06/16/2024 Travel 06/16/2024 12:34 PM [facility]ASSWIND INSTRUMENT REPAIRER - 06/16/2024 3:34 PM [facility]ASS[facility] INSTRUMENT REPAIRER Emergency ER at [address] [address] Nelson Bruce DO Housing instability; Schizoaffective disorder, unspecified type (HCC) Discharge Disposition: Home or Self Care 06/15/2024 8:17 AM [employer]ASSWIND INSTRUMENT REPAIRER - 06/15/2024 9:49 AM [facility]ASS[facility] INSTRUMENT REPAIRER Emergency ER at [address] [address] Shravan Campoverde MD Housing instability Discharge Disposition: Home or Self Care 06/15/2024 12:11 AM [employer]ASSWIND INSTRUMENT REPAIRER - 06/15/2024 2:10 AM [facility]ASS[facility] INSTRUMENT REPAIRER Emergency ER at [address] [address] Amber Macdonald MD Hodges, Harlan D, MD Left hand pain Discharge Disposition: Home or Self Care 06/14/2024 Travel 06/14/2024 4:06 PM [employer] INSTRUMENT REPAIRER - 06/14/2024 5:12 PM [facility] INSTRUMENT REPAIRER Emergency ER at [address] [address] Nelson Bruce DO Malingering Discharge Disposition: Home or Self Care 06/13/2024 Travel 06/13/2024 12:12 PM BRASSWIND INSTRUMENT REPAIRER - 06/13/2024 1:29 PM [facility] Emergency [facility] EMERGENCY DEPARTMENT [address] [place] [phone] Toribio Ayers MD Homelessness (Primary Dx); Open wound of left hand without foreign body, unspecified wound type, initial encounter Discharge Disposition: Home or Self Care 06/13/2024 3:30 AM [employer] INSTRUMENT REPAIRER - 06/13/2024 4:33 AM [facility] Emergency [facility] EMERGENCY DEPARTMENT [address] [place] [phone] Shahid Patterson MD Homelessness Discharge Disposition: Home or Self Care 06/12/2024 10:33 AM [employer]ASSWIND INSTRUMENT REPAIRER - 06/12/2024 1:07 PM [facility] Emergency [facility] EMERGENCY DEPARTMENT [address] [place] [phone] Toribio Ayers MD Cold exposure, initial encounter; Hungry, initial encounter; Homeless Discharge Disposition: Home or Self Care 06/11/2024 Travel 06/11/2024 10:34 AM BRASSWIND INSTRUMENT REPAIRER - 06/11/2024 12:27 PM [facility] Emergency [facility] EMERGENCY DEPARTMENT [address] [place] [phone] Shivani Mccall MD Tired (Primary Dx); Homeless; Normocytic anemia Discharge Disposition: Home or Self Care 05/22/2024 8:04 PM [facility] INSTRUMENT REPAIRER - 05/23/2024 9:29 AM [facility]ASSWIND INSTRUMENT REPAIRER Emergency ER at [address] [address] Talia Becker MD Majino, Angela R, MD Bipolar affective disorder, remission status unspecified (HCC) (Primary Dx); Agitation requiring sedation protocol; Polysubstance abuse (HCC); Noncompliance with treatment Discharge Disposition: Home or Self Care 05/22/2024 Travel 05/22/2024 12:41 AM BRASSWIND INSTRUMENT REPAIRER - 05/22/2024 3:07 AM [facility] Emergency ER at [address] [address] Shravan Campoverde MD Encounter for medication refill; 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, subsequent encounter Discharge Disposition: Home or Self Care 05/04/2024 Telephone [facility] SURGERY [address] [place] [phone] German Higgins MD Question from [...] Comments Blood Pressure 120/84 06/27/2024 12:19 PM BRASSWIND INSTRUMENT REPAIRER Pulse 89 06/27/2024 12:19 PM BRASSWIND INSTRUMENT REPAIRER Temperature 36.8 ??C (98.2 ??F) 06/27/2024 3:26 AM CS T Respiratory Rate 16 06/27/2024 12:19 PM BRASSWIND INSTRUMENT REPAIRER Oxygen Saturation 97% 06/27/2024 12:19 PM BRASSWIND INSTRUMENT REPAIRER Inhaled Oxygen Concentration - - Weight 81.6 kg (180 lb) 06/20/2024 1:22 AM BRASSWIND INSTRUMENT REPAIRER Height 177.8 cm (5' 10 ) 06/20/2024 1:22 AM BRASSWIND INSTRUMENT REPAIRER Body Mass Index 25.83 06/20/2024 1:22 AM BRASSWIND INSTRUMENT REPAIRER Plan of Treatment Upcoming Encounters Date Type Department Care Team (Late st Contact Info) Description 11/15/2024 3:00 PM CDT Office Visit [facility] - Neurology [address] [place] [address], [place] [phone] Anupam Genao MD [address] [place] [address] [place] [phone] (work) Procedures Procedure Name Priority Date/Time Associated Diagnosis Comments LEVETIRACETAM LEVEL STAT 06/27/2024 4 :55 AM BRASSWIND INSTRUMENT REPAIRER CARBAMAZEPINE LEVEL TOTAL STAT 06/27/2024 4:55 AM BRASSWIND INSTRUMENT REPAIRER VALPROIC ACID LEVEL STAT 06/27/2024 4 :55 AM BRASSWIND INSTRUMENT REPAIRER TEG 6S PLATELET MAPPING STAT 06/27/19 4:55 AM BRASSWIND INSTRUMENT REPAIRER TEG 6 GLOBAL HEMOSTASIS W/ LYSIS STAT 06/27/2024 4:55 AM BRASSWIND INSTRUMENT REPAIRER ALCOHOL ETHYL BLOOD STAT 06/27/2024 4 :55 AM BRASSWIND INSTRUMENT REPAIRER PT-INR [facility] STAT 06/27/2024 4:55 AM BRASSWIND INSTRUMENT REPAIRER MAGNESIUM BLOOD STAT 06/27/2024 4:55 AM BRASSWIND INSTRUMENT REPAIRER COMPREHENSIVE METABOLIC PANEL STAT 06/27/2024 4:55 AM BRASSWIND INSTRUMENT REPAIRER CBC W AUTO DIFFERENTIAL STAT 06/27/19 4:55 AM [facility] INSTRUMENT REPA[employer]ER CT HEAD WO CONTRAST STAT 06/27/2024 3 :53 AM BRASSWIND INSTRUMENT REPAIRER Traumatic injury of head, initial encounter Laceration of scalp, initial encounter LACTIC ACID BLOOD REFLEX TO REPEAT STAT 06/17/2024 9:45 AM BRASSWIND INSTRUMENT REPAIRER HYDROXYBUTYRATE BETA STAT 06/17/2024 9:45 AM BRASSWIND INSTRUMENT REPAIRER ALCOHOL ETHYL BLOOD STAT 06/17/2024 9 :45 AM BRASSWIND INSTRUMENT REPAIRER COMPREHENSIVE METABOLIC PANEL STAT 06/17/2024 9:45 AM BRASSWIND INSTRUMENT REPAIRER CBC W AUTO DIFFERENTIAL STAT 06/17/19 9:45 AM BRASSWIND INSTRUMENT REPAIRER ED INCISION AND DRAINAGE Routine 06/15/2024 1:50 AM BRASSWIND INSTRUMENT REPAIRER XR HAND LEFT 3VW OR MORE STAT 06/13/2024 10:44 AM BRASSWIND INSTRUMENT REPAIRER Open wound of left hand without foreign body, unspecified wound type, initial encounter CULTURE WOUND+GRAM STAIN STAT 06/13/2024 10:29 AM BRASSWIND INSTRUMENT REPAIRER URINE DRUG SCREEN IMMUNOASSAY STAT 06/11/2024 11:34 AM BRASSWIND INSTRUMENT REPAIRER VALPROIC ACID LEVEL STAT 06/11/2024 1 0:52 AM BRASSWIND INSTRUMENT REPAIRER ALCOHOL ETHYL BLOOD STAT 06/11/2024 1 0:52 AM BRASSWIND INSTRUMENT REPAIRER BASIC METABOLIC PANEL (CALCIUM TOTAL) STAT 06/11/2024 10:52 AM BRASSWIND INSTRUMENT REPAIRER CBC W AUTO DIFFERENTIAL STAT 06/11/19 10:52 AM BRASSWIND INSTRUMENT REPAIRER from Last 3 Months Results * TEG 6 GLOBAL HEMOSTASIS W/ LYSIS (06/27/2024 4:55 AM BRASSWIND INSTRUMENT REPAIRER) Citrated Kaolin R (Reaction Time) 4.7 4.6 - 9.1 min 06/27/2024 6:09 AM BRASSWIND INSTRUMENT REPAIRER [facility] Citrated Kaolin LY30 (Lysis) 0.5 0.0 - 2.6 % 06/27/2024 6:09 AM BRASSWIND INSTRUMENT REPAIRER [facility] Citrated Functional Fibrinogen MA (Max Amplitude) 18.0 15.0 - 32.0 mm 06/27/2024 6:09 AM BRASSWIND INSTRUMENT REPAIRER [facility] Citrated RapidTEG MA (Max Amplitude) 60.6 52.0 - 70.0 mm 06/27/2024 6:[address] [facility] Blood BLOOD SPECIMEN / Unknown Venipuncture / Unknown 06/27/2024 4:55 AM BRASSWIND INSTRUMENT REPAIRER 06/27/2024 5:10 AM BRASSWIND INSTRUMENT REPAIRER Shama Hutchins MD LAB - HEMATOLOGY ORD ERABLES [facility] [address] [phone], [facility] [phone] * (ABNORMAL) TEG 6S PLATELET MAPPING (06/27/2024 4:55 AM BRASSWIND INSTRUMENT REPAIRER) Pathologist [facility] TEGPLM (Max Amplitude) Koalin 60.0 53.0 - 68.0 mm 06/27/2024 6:[address] [facility] TEGPLM (Max Amplitude) ACTF 7.3 2.0 - 19.0 mm 06/27/2024 6:[address] [facility] TEGPLM (Max Amplitude) ADP 34.1(L) 45.0 - 69.0 mm 06/27/2024 6:[address] [facility] Comment:ADP MA below normal range. Inhibition present. TEGPLM (Max Amplitude) AA 44.3(L) 51.0 - 71.0 mm 06/27/2024 6:[address] [facility] Comment:AA MA below normal r cleo. Inhibition present. TEGPLM %Inhibition ADP 49.1(H) 0.0 - 17.0 % 06/27/2024 6:[address] [facility] TEGPLM %Inhibition AA 29.8(H) 0.0 - 11.0 % 06/27/2024 6:[address] [facility] TEGPLM %Aggregation ADP 50.9(L) 83.0 - 100.0 % 06/27/2024 6:[address] [facility] TEGPLM % Aggregation AA 70.2(L) 89.0 - 100.0 % 06/27/2024 6:[address] [facility] Blood BLOOD SPECIMEN / Unknown Venipuncture / Unknown 06/27/2024 4:55 AM BRASSWIND INSTRUMENT REPAIRER 06/27/2024 5:10 AM [facility] Shama Hutchins MD LAB - HEMATOLOGY ORD ERABLES [facility] [address] [place] [address], [facility] [phone] * PT-INR [facility] (06/27/2024 4:55 AM [facility]) Pathologist [facility] PT 12.2 12.1 - 14.8 Seconds 06/27/2024 6:[address] [facility] INR 0.9 See Comment 06/27/2024 6:[address] [facility] Comment:The suggested therap eutic range for standard coumadin (warfarin) therapy is an INR of 2.0-3.0. For high-risk patients (Mechanical Mitral Valve Prosthesis, etc.), the suggested prophylactic therapeutic range is an INR of 2.5-3.5. Blood BLOOD SPECIMEN / Unknown Venipuncture / Unknown 06/27/2024 4:55 AM BRASSWIND INSTRUMENT REPAIRER 06/27/2024 5:56 AM BRASSWIND INSTRUMENT REPAIRER Shama Hutchins MD LAB - COAGULATION OR DERABLES Performing Organization Address City/State/[facility] Co de Phone Number [address] [phone], [facility] [phone] * LEVETIRACETAM LEVEL (06/27/2024 4:55 AM BRASSWIND INSTRUMENT REPAIRER) Levetiracetam 30 10 - 40 ug/mL 06/29/2024 6:20 AM BRASSWIND INSTRUMENT REPAIRER [employer] ([facility]) Comment: INTERPRETIVE INFORMATION: Keppra (Levetiracetam) Therapeutic Range: ??10-40 ug/mL ?Toxic: ??Not well Established Pharmacokinetics of levetiracetam are affected by renal function. Adverse effects may include somnolence, weakness, headache and vomiting. This levetiracetam (Keppra) immunoassay uses the [employer] reagents, which has known cross-reactivity with the drug brivaracetam (Briviact) and may report inaccurate results. Patients transitioning from levetiracetam to brivaracetam or those who are using both medications should not monitor drug concentrations with the [employer] assay. These patients should be monitored using a validated chromatographic methodology that distinguishes between drugs to determine drug concentrations. Performed By: [facility] [address] [place] [id number] Sr. Pricing Analyst: Miguel Pizano MD, PhD CLIA Number: [id number] Blood BLOOD SPECIMEN / Unknown Venipuncture / Unknown 06/27/2024 4:55 AM [employer]ASSWIND INSTRUMENT REPAIRER 06/27/2024 5:05 AM [employer]ASS[employer] INSTRUMENT REPAIRER Shama Hutchins MD LAB - THERAPEUTIC DR [place] MONITORING ORDERABLES [facility] ([facility]) [address] [place] [address], [facility] * (ABNORMAL) CBC W AUTO DIFFERENTIAL (06/27/2024 4:55 AM [facility]) Only the most recent of3 resultswithin the time period is included. WBC 13.6(H) 4.0 - 10.7 x10E9/L 06/27/2024 5:[address] [facility] RBC Count 4.25(L) 4.30 - 5.80 x10E12/L 06/27/2024 5:[address] [facility] Hemoglobin 12.6(L) 13.3 - 17.5 g/dL 06/27/2024 5:[address] [facility] Hematocrit 37.4(L) 38.7 - 51.1 % 06/27/2024 5:[address] [facility] MCV 88.0 80.0 - 98.0 fL 06/27/2024 5:[address] [facility] MCH 29.6 26.7 - 33.6 pg 06/27/2024 5:[address] [facility] MCHC 33.7 31.7 - 36.3 g/dL 06/27/2024 5:[address] [facility] RDW-CV 11.9 11.3 - 14.8 % 06/27/2024 5:[address] [facility] Platelet Count 293 150 - 420 x10E9/L 06/27/2024 5:[address] [facility] MPV 9.5 7.8 - 11.4 fL 06/27/2024 5:[address] [facility] Neutrophil % 72.9 41.0 - 74.0 % 06/27/2024 5:[address] [facility] Lymphocyte % 18.0 17.0 - 47.0 % 06/27/2024 5:[address] [facility] Monocyte % 6.8 3.0 - 11.0 % 06/27/2024 5:[address] [facility] Eosinophil % 1.6 0.0 - 7.0 % 06/27/2024 5:[address] [facility] Basophil % 0.3 0.0 - 1.6 % 06/27/2024 5:[address] [facility] Immature Granulocytes % 0.4 0.0 - 1.0 % 06/27/2024 5:[address] [facility] Neutrophil Absolute 9.90(H) 1.60 - 7.50 x10E9/L 06/27/2024 5:[address] [facility] Lymphocyte Absolute 2.45 1.00 - 4.40 x10E9/L 06/27/2024 5:[address] [facility] Monocyte Absolute 0.93 0.15 - 1.00 x10E9/L 06/27/2024 5:[address] [facility] Eosinophil Absolute 0.22 0.00 - 0.60 x10E9/L 06/27/2024 5:[address] [facility] Basophil Absolute 0.04 0.00 - 0.13 x10E9/L 06/27/2024 5:[address] [facility] Blood BLOOD SPECIMEN / Unknown Venipuncture / Unknown 06/27/2024 4:55 AM [facility] 06/27/2024 5:11 AM [facility] Shama Hutchins MD LAB - HEMATOLOGY ORD ERABLES [facility] [address] [place] [address], [facility] [phone] * (ABNORMAL) COMPREHENSIVE METABOLIC PANEL (06/27/2024 4:55 AM [facility]) Only the most recent of2 resultswithin the time period is included. BUN 7 7 - 26 mg/dL 06/27/2024 5:[address] [facility] Creatinine 0.62(L) 0.71 - 1.16 mg/dL 06/27/2024 5:[address] [facility] Sodium 142 136 - 145 mmol/L 06/27/2024 5:[address] [facility] Potassium 4.5 3.5 - 4.5 mmol/L 06/27/2024 5:[address] [facility] Chloride 110(H) 98 - 107 mmol/L 06/27/2024 5:[address] [facility] CO2 27 22 - 29 mmol/L 06/27/2024 5:[address] [facility] Glucose 100(H) 70 - 99 mg/dL 06/27/2024 5:[address] [facility] Calcium 9.1 8.4 - 10.2 mg/dL 06/27/2024 5:[address] [facility] Protein Total 6.6 6.0 - 8.3 g/dL 06/27/2024 5:[address] [facility] Albumin 4.0 3.4 - 5.0 g/dL 06/27/2024 5:[address] [facility] Bilirubin Total 0.3 0.2 - 1.2 mg/dL 06/27/2024 5:[address] [facility] Alkaline Phosphatase 66 40 - 150 U/L 06/27/2024 5:[address] [facility] ALT 19 5 - 55 U/L 06/27/2024 5:[address] [facility] AST 31 5 - 34 U/L 06/27/2024 5:[address] [facility] Anion Gap 5(L) 6 - 16 06/27/2024 5:[address] [facility] BUN/Creatinine Ratio 11 7 - 23 06/27/2024 5:[address] [facility] Osmolality Calculated 292 275 - 295 mOsm/kg 06/27/2024 5:[address] [facility] Albumin/Globulin Ratio 1.5 1.1 - 2.3 06/27/2024 5:[address] [facility] eGFR by CKD-EPI >90 >=90 mL/min/1.7 3 m2 06/27/2024 5:[address] [facility] Blood BLOOD SPECIMEN / Unknown Venipuncture / Unknown 06/27/2024 4:55 AM BRASSWIND INSTRUMENT REPAIRER 06/27/2024 5:11 AM [facility] Shama Hutchins MD LAB - CHEMISTRY ORDE JOSE [facility] Organization Address City/State/ZIP Co de Phone Number [address] [address], [facility] [phone] * MAGNESIUM BLOOD (06/27/2024 4:55 AM BRASSWIND INSTRUMENT REPAIRER) Magnesium 2.0 1.6 - 2.6 mg/dL 06/27/2024 5:[address] [facility] Blood BLOOD SPECIMEN / Unknown Venipuncture / Unknown 06/27/2024 4:55 AM BRASSWIND INSTRUMENT REPAIRER 06/27/2024 5:11 AM [employer]ASSWIND INSTRUMENT REPAIRER Shama Hutchins MD LAB - CHEMISTRY TISHA WOODALL Performing Organization Address [facility] Co de Phone Number [address] [address], [facility] [phone] * ALCOHOL ETHYL BLOOD (06/27/2024 4:55 AM BRASSWIND INSTRUMENT REPAIRER) Only the most recent of3 resultswithin the time period is included. Ethanol (mg/dL) <10 <10 mg/dL 5:[address] [facility] Ethanol Calculated (g/dL) <0.010 <=0.010 g/dL 06/27/2024 5:[address] [facility] Blood BLOOD SPECIMEN / Unknown Venipuncture / Unknown 06/27/2024 4:55 AM BRASSWIND INSTRUMENT REPAIRER 06/27/2024 5:11 AM BRASSWIND INSTRUMENT REPAIRER Narrative [facility] - 06/27/2024 5:40 AM BRASSWIND INSTRUMENT REPAIRER Ethanol Interp <10: None Detected. Depression of MUMPS DEVELOPER: >100 mg/dl Potentially Critical: >250 mg/dl Potentially [...] - CHEMISTRY TISHA WOODALL Performing Organization Address City/[facility]/ZIP Co de Phone Number [address] [address], [facility] [phone] * (ABNORMAL) VALPROIC ACID LEVEL (06/27/2024 4:55 AM BRASSWIND INSTRUMENT REPAIRER) Only the most recent of2 resultswithin the time period is included. Valproic Acid Total <13(L) 50 - 100 ug/mL 06/27/2024 5:44 AM BRASSWIND INSTRUMENT REPAIRER [facility] Blood BLOOD SPECIMEN / Unknown Venipuncture / Unknown 06/27/2024 4:55 AM BRASSWIND INSTRUMENT REPAIRER 06/27/2024 5:16 AM BRASSWIND INSTRUMENT REPAIRER Shama Hutchins MD LAB - CHEMISTRY TISHA WOODALL Performing Organization Address [facility]/ZIP Co de Phone Number [address] [address], [facility] [phone] * (ABNORMAL) CARBAMAZEPINE LEVEL TOTAL (06/27/2024 4:55 AM BRASSWIND INSTRUMENT REPAIRER) Carbamazepine, trough <1.9(L) 4.0 - 12.0 ug/mL 06/27/2024 5:44 AM BRASSWIND INSTRUMENT REPAIRER [facility] Blood BLOOD SPECIMEN / Unknown Venipuncture / Unknown 06/27/2024 4:55 AM BRASSWIND INSTRUMENT REPAIRER 06/27/2024 5:16 AM BRASSWIND INSTRUMENT REPAIRER Shama Hutchins MD LAB - CHEMISTRY TISHA WOODALL Performing Organization Address [facility]/ZIP Co de Phone Number [address] [address], [facility] [phone] * CT Head Wo Contrast (06/27/2024 3:53 AM BRASSWIND INSTRUMENT REPAIRER) Anatomical Region Laterality Modality Head Computed Tomogra phy 06/27/2024 4:36 AM BRASSWIND INSTRUMENT REPAIRER Impressions 06/27/2024 12:55 PM BRASSWIND INSTRUMENT REPAIRER IMPRESSION: 1.Streak artifact from the embolization material in the right frontal lobe limits evaluation. Within the limitations of this exam, no large acute intracranial hemorrhage or mass effect is identified. 2.A left parietal scalp contusion/hematoma with overlying skin gonzalo. No acute calvarial fractures. > Dictated by Mark Orozco DO (Film Cutter), 06/27/2024 4:55 AM. IPopeye MD have personally reviewed and interpreted this examination/study. > Interpreting Provider: Popeye Hughes MD on 06/27/2024 12:55 PM Narrative 06/27/2024 12:55 PM BRASSWIND INSTRUMENT REPAIRER PROCEDURE: ??CT HEAD WO CONTRAST, DATE/TIME OF EXAM: ??06/27/2024 3:54 AM, LOCATION ??[facility] INDICATION: S09.90XA: Traumatic injury of [...] DATE/TIME OF EXAM: 06/27/2024 3:54 AM, LOCATION [facility] INDICATION: S09.90XA: Traumatic injury of [...] fractures. > Dictated by Mark Orozco DO (Film Cutter), 06/27/2024 4:55AM. I, Popeye Hughes MD have personally reviewed and interpreted this examination/study. > Interpreting Provider: Popeye Hughes MD on 06/27/2024 12:55 PM Shama Hutchins MD CT ORDERABLES * (ABNORMAL) LACTIC ACID BLOOD REFLEX TO REPEAT (06/17/2024 9:45 AM BRASSWIND INSTRUMENT REPAIRER) Pathologist [facility] Lactic Acid 3.3(HH) <=2.0 mmol/L 06/17/2024 10:23 AM BRASSWIND INSTRUMENT REPAIRER [facility] Blood BLOOD SPECIMEN / Unknown Venipuncture / Unknown 06/17/2024 9:45 AM BRASSWIND INSTRUMENT REPAIRER 06/17/2024 9:51 AM BRASSWIND INSTRUMENT REPAIRER James Ogden MD LAB - CHEMISTRY TISHA WOODALL [facility] [address] [place] [address] * HYDROXYBUTYRATE BETA (06/17/2024 9:45 AM BRASSWIND INSTRUMENT REPAIRER) Beta-Hydroxybu tyrate <0.50 <0.50 mmol/L 06/17/2024 10:23 AM BRASSWIND INSTRUMENT REPAIRER [facility] Blood BLOOD SPECIMEN / Unknown Venipuncture / Unknown 06/17/2024 9:45 AM BRASSWIND INSTRUMENT REPAIRER 06/17/2024 9:51 AM BRASSWIND INSTRUMENT REPAIRER Narrative [facility] - 06/17/2024 10:23 AM BRASSWIND INSTRUMENT REPAIRER Results >1.5 mmol/L may be indicative of diabetic ketoacidosis. Use in conjunction with Serum Glucose levels. James Ogden MD LAB - CHEMISTRY TISHA WOODALL [facility] [address] [place] [address] * Incision/Drainage (06/15/2024 1:50 AM BRASSWIND INSTRUMENT REPAIRER) Narrative Zane Huynh MD - 06/15/2024 1:50 AM BRASSWIND INSTRUMENT REPAIRER Zane Huynh MD ? 06/15/2024 ??2:07 AM [...] Left 3Vw or More (06/13/2024 10:44 AM BRASSWIND INSTRUMENT REPAIRER) Anatomical Region Laterality Modality Wrist / Hand Digital Radiogra phy 06/13/2024 10:4 5 AM BRASSWIND INSTRUMENT REPAIRER Impressions 06/13/2024 11:03 AM BRASSWIND INSTRUMENT REPAIRER IMPRESSION: 1. Second digit amputation. 2. No acute osseous abnormality. Report was dictated by Levar Hutchinson MD, ([facility] resident). Cristiana Pastrana MD have personally reviewed and interpreted this examination/study. > Interpreting Provider: Cristiana Hernández MD on 06/13/2024 11:03 AM Narrative 06/13/2024 11:03 AM [employer] INSTRUMENT REPAIRER PROCEDURE: ??XR HAND LEFT 3VW OR MORE, DATE/TIME OF EXAM: ??06/13/2024 10:45 AM, LOCATION ??[facility] INDICATION: S61.402A: Open wound of [...] DATE/TIME OF EXAM: 06/13/2024 10:45 AM, LOCATION [facility] INDICATION: S61.402A: Open wound of [...] Report was dictated by Levar Hutchinson MD, ([facility] resident). I, Cristiana Hernández MD have personally reviewed and interpreted this examination/study. > Interpreting Provider: Cristiana Hernández MD on 06/13/2024 11:03 AM Ara Saleem MD DIAGNOSTIC IMAGING O RDPAGE * CULTURE WOUND+GRAM STAIN (06/13/2024 10:29 AM [employer]PA[employer]) Culture Rare normal skin anand BRIANA 06/16/2024 4:00 PM [employer] MICROBIOLOGY Gram Stain Rare Polymorphonuclear cells 06/16/2024 4:00 PM [employer] MICROBIOLOGY Gram Stain No organisms seen 025 4:00 PM [facility] MICROBIOLOGY Microbiology SPECIMEN FROM WOUND / Unknown Collection / Unknown 06/13/2024 10:29 AM [facility] [employer] 06/13/2024 10:34 AM [employer] Ara Saleem MD LAB - MICROBIOLOGY O SANDY [facility] MICROBIOLOGY [address] [place], [place] [address] [phone] * (ABNORMAL) URINE DRUG SCREEN IMMUNOASSAY (06/11/2024 11:34 AM [facility]PA[employer]) Amphetamines Screen Urine Positive(A) Negative : < 1000 ng/mL 06/11/2024 12:[address] [facility] Comment: Positive urine amphetamine screening results should be confirmed by another generally accepted non-immunological method such as gas chromatography or mass spectrometry. ? Barbiturates Screen Urine Negative Negative : < 200 ng/mL 06/11/2024 12:[address] [facility] Benzodiazepine Screen Urine Negative Negative : < 200 ng/mL 06/11/2024 12:[address] [facility] Opiates Urine Negative Negative : < 300 ng/mL 06/11/2024 12:[address] [facility] Cocaine Metabolites Urine Negative Negative : < 300 ng/mL 06/11/2024 12:[address] [facility] Phencyclidine Screen Urine Negative Negative : < 25 ng/ml 06/11/2024 12:[address] [facility] Cannabinoids Screen Urine Positive(A) Negative : <50 ng/mL 06/11/2024 12:[address] [facility] Comment:Positive urine canna binoids (THC) screening results should be confirmed by another generally accepted non-immunological method such as gas chromatography or mass spectrometry. Methadone Screen Urine Negative Negative : < 300 ng/mL 06/11/2024 12:[address] [facility] Fentanyl Screen Urine Negative Negative : <1.5 ng/mL 06/11/2024 12:[address] [facility] Urine URINE / Unknown Collection / Unknown 06/11/2024 11:34 AM [facility] 06/11/2024 11:45 AM [facility] - 06/11/2024 12:15 PM [facility] The Urine Toxicology Screening Panel does not screen for Propoxyphene, Meprobamate, Carisoprodol, Trazodone, [id number]-kvvdgtp medications and/or volatiles (Acetone, Isopropanol, Methanol or Ethylene Glycol). Ethanol, Salicylate, Acetaminophen, Tricyclic Antidepressants and several therapeutic drugs may be individually assayed in serum or plasma specimen. Toxicology testing by the [facility] is an aid to medical diagnosis and treatment of patients. No documented chain of custody was maintained. Results are intended to be used for clinical purposes only. ? Shivani Mccall MD LAB - URINE CHEMISTR Y ORDERABLES Performing Organization Address City/State/[facility] Co de Phone Number [facility] [address] [place] [address], [place] [phone] * (ABNORMAL) BASIC METABOLIC PANEL (CALCIUM TOTAL) (06/11/2024 10:52 AM [facility]) BUN 17 7 - 26 mg/dL 06/11/2024 11:[address] [facility] Creatinine 0.64(L) 0.71 - 1.16 mg/dL 06/11/2024 11:[address] [facility] Sodium 138 136 - 145 mmol/L 06/11/2024 11:[address] [facility] Potassium 3.9 3.5 - 4.5 mmol/L 06/11/2024 11:[address] [facility] Chloride 106 98 - 107 mmol/L 06/11/2024 11:[address] [facility] CO2 24 22 - 29 mmol/L 06/11/2024 11:[address] [facility] Glucose 133(H) 70 - 99 mg/dL 06/11/2024 11:[address] [facility] Calcium 8.9 8.4 - 10.2 mg/dL 06/11/2024 11:[address] [facility] Anion Gap 8 6 - 16 06/11/2024 11:[address] [facility] BUN/Creatinine Ratio 27(H) 7 - 23 06/11/2024 11:[address] [facility] Osmolality Calculated 289 275 - 295 mOsm/kg 06/11/2024 11:[address] [facility] eGFR by CKD-EPI >90 >=90 mL/min/1.7 3 m2 06/11/2024 11:[address] [facility] Blood BLOOD SPECIMEN / Unknown Venipuncture / Unknown 06/11/2024 10:52 AM [employer] 06/11/2024 11:04 AM [facility] Shivani Mccall MD LAB - CHEMISTRY TISHA WOODALL [facility] [address] [place] [address], [facility] [phone] from Last 3 Months Care Teams Maintenance Services Dispatcher Relationship Specialty Start Date End Date None, Physician PCP - General 06/27/24
--- OUTSIDE RECORDS SUMMARY | 2024-07-04 21:23 | XMS_ITS | CONTINUITY OF CARE DOCUMENT ---
Author Name eduardo clark Address Unknown Organization [facility] Address [address] [address] [place] [address] Phone [phone] Care Team Providers Care Per Diem Name Role Phone Jasper MORALES, Ivonne Unavailable LINDSAY CANTRELL MD Unavailable INSURANCE PROVIDERS Payer name Policy type / Coverage type [place] red republic[employer] Medicaid 1 [id number]
--- OUTSIDE RECORDS SUMMARY | 2024-07-04 21:24 | XMS_ITS | Clinical Summary ---
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 on 04/30 [...] 05/12/2024 Assessment & Plan (05/19/2024 4:18 PM HIGHBALLER): Resumed Haldol, seroquel, doxepin Resume outpatient follow up Homeless 05/12/2024 Assessment & Plan (05/19/2024 4:16 PM HIGHBALLER): SW provided a list of shelters for patient to call on discharge Counseled against drug use Abscess of index finger 05/05/2024 Partial symptomatic epilepsy with complex partial seizures, intractable, without status epilepticus 01/15/2019 Intracranial hemorrhage 04/25/2016 AVM (arteriovenous malformation) brain 6 Bipolar 1 disorder 11/05/2015 Assessment & Plan (05/19/2024 4:18 PM HIGHBALLER): Resumed home Haldol, seroquel, doxepin Resume Outpatient follow up Seizure disorder ([facility]) 11/05/2015 Assessment & Plan (05/28/2024 8:44 AM HIGHBALLER): Has not been taking outpatient seizure medications, [...] Klonopin. Assessment & Plan (05/19/2024 4:19 PM HIGHBALLER): Pt does not recall when his last [...] Department Care Team Description 06/29/2024 3:03 AM HIGHBALLER - 06/29/2024 4:24 AM [facility] Emergency [facility] Emergency Department [address] [place] [address] Baudilio Arellano MD Phantom pain (Primary Dx) Discharge Disposition: Discharge to home or self care 06/21/2024 3:33 AM HIGHBALLER - 06/21/2024 11:59 PM HIGHBALLER Hospital Encounter [facility] Emergency, Room R Discharge Disposition: Discharge to home or self care 06/20/2024 9:06 AM HIGHBALLER - 06/21/2024 1:02 AM [facility] Emergency [facility] Emergency Department [address] [place] [address] Jyotsna Moralez MD Watson, Vishal Wood MD PhD Substance use (Primary Dx) Discharge Disposition: Discharge to home or self care 06/18/2024 6:32 PM HIGHBALLER - 06/18/2024 11:59 PM HIGHBALLER Hospital Encounter [facility] AM[facility]ULANCE BILLING Emergency, Room R Discharge Disposition: Discharge to home or self care 06/10/2024 10:23 PM HIGHBALLER - 06/10/2024 11:28 PM [facility] Emergency [facility] Emergency Department [address] [place] [address] Tamika Machado MD Amputated finger, subsequent encounter (Primary Dx); Finger pain, left Discharge Disposition: Discharge to home or self care 06/10/2024 6:03 AM HIGHBALLER - 06/10/2024 11:59 PM HIGHBALLER Hospital Encounter [facility] Emergency, Room R Discharge Disposition: Discharge to home or self care 06/06/2024 1:29 AM HIGHBALLER - 06/06/2024 11:59 PM HIGHBALLER Hospital Encounter [facility] Emergency, Room R Discharge Disposition: Discharge to home or self care 05/29/2024 2:53 AM HIGHBALLER - 05/29/2024 5:16 AM HIGHBALLER Emergency [facility] Emergency Department [address] [place] [phone] Montrell Mir MD Neuropathic pain of finger, left (Primary Dx); Cold exposure, initial encounter Discharge Disposition: Discharge to home or self care 05/25/2024 4:48 PM HIGHBALLER - 05/28/2024 2:45 PM HIGHBALLER Hospital Encounter [address] [phone] Ethan Wolf MD Osborn, Tiffany M., MD Mullins, Michael E., MD Bizarre behavior (Primary Dx); Nonadherence to medication; Use of cannabis; Psychomotor restlessness; 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]; Seizure disorder (CMS/[facility]) ([facility]) [G40.909] Discharge Disposition: Discharge to home or self care 05/20/2024 2:30 AM HIGHBALLER - 05/20/2024 4:[address] [address] Westley Melgar MD Cold exposure, initial encounter (Primary Dx); Left hand pain Discharge Disposition: Discharge to home or self care 05/12/2024 5:43 AM HIGHBALLER - 05/19/2024 4:14 PM HIGHBALLER Hospital Encounter [address] [phone] Monroe Martínez MD House, Stacey Lynn, MD PhD Zion Saini MD Brito Rivera, Natalia, MD Farrag, Safa Elsebai, MD Finger infection (Primary Dx) Discharge Disposition: Discharge to home or self care 05/04/2024 4:13 AM HIGHBALLER - 05/04/2024 11:59 PM HIGHBALLER Hospital Encounter [facility] AMBULANCE BILLING Emergency, Room R Discharge Disposition: Discharge to home or self care 04/30/2024 2:31 PM HIGHBALLER - 04/30/2024 3:15 PM [facility] Emergency [facility] Emergency Department [address] [place] [id number] Cellulitis, unspecified cellulitis site (Primary Dx) Discharge Disposition: Discharge to home or self care 04/18/2024 11:11 AM HIGHBALLER - 04/18/2024 11:59 PM HIGHBALLER Hospital Encounter [facility] Emergency, Room [...] How often do you attend chur or episcopalian services? Patient unable to answer 05/26/2024 Do you belong to any clubs o r organizations such as religion groups, unions, fraternal or athletic groups, or [...] medical care, and heating? Very hard 05/26/2024 [facility] [place] of Occupat ional Health - Occupational Stress [...] were you homeless or living in a jail (including now)? Yes 05/26/2024 Personal Safety Answer Date Recorded Have you ever been in or are you currently in a harmful physical or emotional relationship or is someone making you feel afraid or unsafe? Denies 06/29/2024 Sex and Gender Information Value Date Recorded Sex Assigned at Not on file Legal Sex Male 2:11 PM HIGHBALLER Gender Identity Not on file Sexual Orientation Not on file Obstetrics History Last Filed Vital Signs Vital Sign Reading Time Taken Comments Blood Pressure 126/72 06/29/2024 3:00 AM HIGHBALLER Pulse 89 06/29/2024 3:00 AM HIGHBALLER Temperature 36.8 ??C (98.3 ??F) 06/29/2024 3:00 AM CS T Respiratory Rate 16 06/29/2024 3:00 AM HIGHBALLER Oxygen Saturation 100% 06/29/2024 3:00 AM HIGHBALLER Inhaled Oxygen Concentration - - Weight 77.1 kg (170 lb) 06/29/2024 3:00 AM HIGHBALLER Height 177.8 cm (5' 10 ) 06/10/2024 9:40 PM HIGHBALLER Body Mass Index 24.39 06/10/2024 9:40 PM HIGHBALLER Plan of Treatment Health Maintenance Due Date [...] REFLEX TO MICROSCOPIC STAT 06/20/2024 11:42 AM HIGHBALLER DRUGS OF ABUSE SCREEN, URINE WITHOUT CONFIRMATION STAT 06/20/2024 11:42 AM HIGHBALLER EGFR STAT 06/20/2024 9:16 AM HIGHBALLER VALPROIC ACID LEVEL, TOTAL STAT 06/20/2024 9:16 AM HIGHBALLER DIFFERENTIAL AUTO STAT 06/20/2024 9:1 6 AM HIGHBALLER ETHANOL STAT 06/20/2024 9:16 AM HIGHBALLER THYROID FUNCTION CASCADE STAT 06/20/2024 9:16 AM HIGHBALLER COMPREHENSIVE METABOLIC PANEL STAT 06/20/2024 9:16 AM HIGHBALLER CBC WITH AUTO DIFFERENTIAL STAT 06/20/2024 9:16 AM HIGHBALLER POCT RAPID HIV ANTIBODY COMMUNITY SCREENING-CONOR ELIGIBLE Routine 05/29/2024 4:17 AM HIGHBALLER XR HAND LEFT 3 OR MORE VIEWS ED 05/29/2024 3:38 AM HIGHBALLER ED CRITICAL CARE Routine 05/26/2024 5:15 PM HIGHBALLER URINALYSIS, MICROSCOPIC ONLY STAT 05/25/2024 10:06 PM HIGHBALLER DRUGS OF ABUSE SCREEN, URINE WITHOUT CONFIRMATION STAT 05/25/2024 10:06 PM HIGHBALLER URINALYSIS AND REFLEX TO MICROSCOPIC AND CULTURE STAT 05/25/2024 10:06 PM HIGHBALLER EGFR STAT 05/25/2024 5:37 PM HIGHBALLER DIFFERENTIAL AUTO STAT 05/25/2024 5:3 7 PM HIGHBALLER ETHANOL STAT 05/25/2024 5:37 PM HIGHBALLER THYROID FUNCTION CASCADE STAT 05/25/2024 5:37 PM HIGHBALLER BASIC METABOLIC PANEL STAT 05/25/2024 5:37 PM HIGHBALLER CBC WITH AUTO DIFFERENTIAL STAT 05/25/2024 5:37 PM HIGHBALLER VALPROIC ACID LEVEL, TOTAL STAT 05/25/2024 5:37 PM HIGHBALLER CARBAMAZEPINE LEVEL, TOTAL STAT 05/25/2024 5:37 PM HIGHBALLER DRUGS OF ABUSE SCREEN, URINE WITH REFLEX CONFIRMATION Routine 05/19/2024 9:28 AM HIGHBALLER EGFR Routine 05/19/2024 4:58 AM HIGHBALLER DIFFERENTIAL AUTO Routine 05/19/2024 4:5 8 AM HIGHBALLER COMPREHENSIVE METABOLIC PANEL Routine 05/19/2024 4:58 AM HIGHBALLER CBC WITH AUTO DIFFERENTIAL Routine 05/19/2024 4:58 AM HIGHBALLER EGFR Routine 05/18/2024 4:54 AM HIGHBALLER DIFFERENTIAL AUTO Routine 05/18/2024 4:5 4 AM HIGHBALLER COMPREHENSIVE METABOLIC PANEL Routine 05/18/2024 4:54 AM HIGHBALLER CBC WITH AUTO DIFFERENTIAL Routine 05/18/2024 4:54 AM HIGHBALLER EGFR Routine 05/17/2024 4:30 AM HIGHBALLER DIFFERENTIAL AUTO Routine 05/17/2024 4: 30 AM HIGHBALLER COMPREHENSIVE METABOLIC PANEL Routine 05/17/2024 4:30 AM HIGHBALLER CBC WITH AUTO DIFFERENTIAL Routine 05/17/2024 4:30 AM HIGHBALLER EGFR Routine 05/16/2024 5:18 AM HIGHBALLER DIFFERENTIAL AUTO Routine 05/16/2024 5:1 8 AM HIGHBALLER VANCOMYCIN LEVEL TROUGH Timed 05/16/2024 5:18 AM HIGHBALLER COMPREHENSIVE METABOLIC PANEL Routine 05/16/2024 5:18 AM HIGHBALLER CBC WITH AUTO DIFFERENTIAL Routine 05/16/2024 5:18 AM HIGHBALLER EGFR Routine 05/15/2024 4:41 AM HIGHBALLER DIFFERENTIAL AUTO Routine 05/15/2024 4:4 1 AM HIGHBALLER VANCOMYCIN LEVEL TROUGH Timed 05/15/2024 4:41 AM HIGHBALLER COMPREHENSIVE METABOLIC PANEL Routine 05/15/2024 4:41 AM HIGHBALLER CBC WITH AUTO DIFFERENTIAL Routine 05/15/2024 4:41 AM HIGHBALLER BLOOD CULTURE Routine 05/14/2024 11:29 PM HIGHBALLER BLOOD CULTURE Routine 05/14/2024 11:29 PM HIGHBALLER EGFR Routine 05/14/2024 5:08 AM HIGHBALLER DIFFERENTIAL AUTO Routine 05/14/2024 5:0 8 AM HIGHBALLER COMPREHENSIVE METABOLIC PANEL Routine 05/14/2024 5:08 AM HIGHBALLER CBC WITH AUTO DIFFERENTIAL Routine 05/14/2024 5:08 AM HIGHBALLER VANCOMYCIN LEVEL TROUGH STAT 05/13/2024 4:15 PM HIGHBALLER EGFR Routine 05/13/2024 6:14 AM HIGHBALLER DIFFERENTIAL AUTO Routine 05/13/2024 6:1 4 AM HIGHBALLER COMPREHENSIVE METABOLIC PANEL Routine 05/13/2024 6:14 AM HIGHBALLER CBC WITH AUTO DIFFERENTIAL Routine 05/13/2024 6:14 AM HIGHBALLER VALPROIC ACID LEVEL, TOTAL Routine 05/13/2024 6:14 AM HIGHBALLER CARBAMAZEPINE LEVEL, TOTAL Routine 05/13/2024 6:14 AM HIGHBALLER B CHECK SAMPLE STAT 05/12/2024 12:27 PM HIGHBALLER AEROBIC AND ANAEROBIC CULTURE AND GRAM STAIN Routine 05/12/2024 12:27 PM HIGHBALLER SURGICAL PATHOLOGY Routine 05/12/2024 12 :00 PM HIGHBALLER TYPE AND SCREEN STAT 05/12/2024 9:30 AM HIGHBALLER XR HAND LEFT 3 OR MORE VIEWS ED 05/12/2024 6:27 AM HIGHBALLER EGFR STAT 05/12/2024 6:05 AM HIGHBALLER DIFFERENTIAL AUTO STAT 05/12/2024 6:0 5 AM HIGHBALLER CRP (ACUTE PHASE) STAT 05/12/2024 6:0 5 AM HIGHBALLER ERYTHROCYTE SEDIMENTATION RATE STAT 05/12/2024 6:05 AM HIGHBALLER COMPREHENSIVE METABOLIC PANEL STAT 05/12/2024 6:05 AM HIGHBALLER CBC WITH AUTO DIFFERENTIAL STAT 05/12/2024 6:05 AM HIGHBALLER BLOOD CULTURE STAT 05/12/2024 6:05 AM HIGHBALLER BLOOD CULTURE STAT 05/12/2024 6:05 AM HIGHBALLER XR FINGER 2ND INDEX LEFT ED 04/30/2024 2:29 PM HIGHBALLER HEPATITIS PANEL, ACUTE Routine 0 1:01 PM CDT from Last 3 Months or Most Recently Relevant to Health Maintenance Results * Urinalysis reflex to microscopic (06/20/2024 11:42 AM HIGHBALLER) Color, ur Straw Yellow Clarity, ur Clear Clear [facility] Specific gravity, ur 1.009 1.003 - 1.030 [facility] pH, urine 7.0 [facility] Comment: Interpretive Data ? Urine pH is affected by diet, medications, systemic acid-base disturbances, and renal tubular function. ??pH may affect urinary stone formation. ??For example, urine pH below 6.0 may help reduce the tendency for calcium phosphate stones and pH greater than 6.0 may reduce the tendency for uric acid stone formation. Source: [employer] Current Interpretive Data was last revised on 2017 Protein, ur ql Negative Negative [facility] Glucose, ur ql Negative Negative [facility] Ketones, ur Negative Negative [facility] Bilirubin, ur Negative Negative [facility] Blood, ur Negative Negative [facility] Urobilinogen, ur <2.0 <2.0 mg/dL [facility] Nitrite, ur Negative Negative [facility] Leukocyte esterase, ur Negative Negative [facility] UA reflex comment Reflex conditions for microscopic UA not met. [facility] Urine 06/20/2024 11:4 2 AM HIGHBALLER 06/20/2024 12:46 PM HIGHBALLER us Jyotsna Moralez MD LAB URINE ORDERABLES Final Result [facility] Department [place] [address] * (ABNORMAL) Drugs of Abuse Screen, Urine without Confirmation (06/20/2024 11:42 AM HIGHBALLER) Amphetamine, ur Not Detected CutOff 500ng/mL Comment: Interpretive Data - Amphetamines: ??Samples containing greater than 500 ng/mL d-methamphetamine ??or other cross-reacting amphetamine compounds are reported as positive. ??Amphetamine immunoassays are subject to significant false positive rates due to cross-reactivity of non-amphetamine drugs. Confirmatory testing required for definitive results. Current Interpretive Data was last reviewed 2023. Barbiturates, ur Not Detected CutOff 200ng/mL [facility] Comment: Interpretive Data - Barbiturates: ??Samples containing greater than 200 ng/mL secobarbital or other cross-reacting barbiturate compounds are reported as positive. ??False positive and false negative results are possible. Confirmatory testing required for definitive results. Current Interpretive Data was last reviewed 2023. Benzodiazepines, ur Not Detected CutOff 100ng/mL [facility] Comment: Interpretive Data - Benzodiazepines: ??Samples containing greater than 100 ng/mL nordiazepam or other cross-reacting compounds are reported as positive. False positive and false negative results are possible. Confirmatory testing required for definitive results. Current Interpretive Data was last reviewed 2023. Cannabinoids, ur Screen Positive, presumptive (A) CutOff 50 ng/mL [facility] Comment: Interpretive Data - Cannabinoids: ??Samples containing greater than 50 ng/mL delta-9 THC -COOH or other cross-reacting compounds are reported as positive. ??False positive and false negative results are possible. ??Confirmatory testing required for definitive results. Current Interpretive Data was last reviewed 2023. Cocaine, ur Not Detected CutOff 150ng/mL [facility] Comment: Interpretive Data - Cocaine: ??Samples containing [...] Methadone, ur Not Detected CutOff 300ng/mL [facility] Comment: Interpretive Data - Methadone: ??Samples containing greater than 300 ng/mL d,l-methadone or other cross-reacting compounds are reported as positive. ??False positive and false negative results are possible. Confirmatory testing required for definitive results. Current Interpretive Data was last reviewed 2023. Opiates, ur Not Detected CutOff 300ng/mL [facility] Comment: Interpretive Data - Opiates: ??Samples containing [...] on 2017. Urine 06/20/2024 11:4 2 AM HIGHBALLER 06/20/2024 12:46 PM HIGHBALLER Narrative [facility] - 06/20/2024 1:25 PM HIGHBALLER Drug of Abuse screening is performed by immunoassay for medical purposes only. ??This is not to be used for Pain Management purposes. us Jyotsna Moralez MD LAB URINE ORDERABLES Final Result [facility] Department [place] [address] * eGFR (06/20/2024 9:16 AM HIGHBALLER) eGFR >90 >=60 mL/min/1. 73 m2 Comment: [...] last reviewed 2021. Blood 06/20/2024 9:16 AM HIGHBALLER 06/20/2024 9:54 AM HIGHBALLER us Jyotsna Moralez MD LAB BLOOD ORDERABLES Final Result [facility] [place] [address] * Differential, auto (06/20/2024 9:16 AM HIGHBALLER) Neutrophil abs 5.3 1.5 - 6.5 K/cumm Imm gran abs 0.0 0.0 - 0.1 K/cumm [facility] Lymphocyte abs 2.8 0.8 - 3.3 K/cumm [facility] Monocyte abs 0.6 0.2 - 0.8 K/cumm [facility] Eosinophil abs 0.2 0.0 - 0.5 K/cumm [facility] Basophil abs 0.1 0.0 - 0.1 K/cumm [facility] Neutrophil pct 58.8 % [facility] Comment: Interpretive Data Percent cell count reference ranges are not reported, since discordance with absolute values may lead to misinterpretation of CBC data. Current Interpretive Data was last revised on 2017. Imm gran pct 0.4 % [facility] Comment: Interpretive Data Percent cell count reference ranges are not reported, since discordance with absolute values may lead to misinterpretation of CBC data. Current Interpretive Data was last revised on 2017. Lymphocyte pct 31.7 % [facility] Comment: Interpretive Data Percent cell count reference ranges are not reported, since discordance with absolute values may lead to misinterpretation of CBC data. Current Interpretive Data was last revised on 2017. Monocyte pct 6.1 % [facility] Comment: Interpretive Data Percent cell count reference ranges are not reported, since discordance with absolute values may lead to misinterpretation of CBC data. Current Interpretive Data was last revised on 2017. Eosinophil pct 2.3 % [facility] Comment: Interpretive Data Percent cell count reference ranges are not reported, since discordance with absolute values may lead to misinterpretation of CBC data. Current Interpretive Data was last revised on 2017. Basophil pct 0.7 % [facility] Comment: Interpretive Data Percent cell count reference ranges are not reported, since discordance with absolute values may lead to misinterpretation of CBC data. Current Interpretive Data was last revised on 2017. Blood 06/20/2024 9:16 AM HIGHBALLER 06/20/2024 9:46 AM HIGHBALLER Jyotsna Moralez MD LAB BLOOD ORDERABLES Final Result Performing Organization Address [facility] Co de Phone Number [facility] Department [place] [address] * Thyroid Function [place] (06/20/2024 9:16 AM HIGHBALLER) Pathologist [facility] TSH 0.91 0.30 - 4.20 mcIUnit/mL Blood 06/20/2024 9:16 AM HIGHBALLER 06/20/2024 9:46 AM HIGHBALLER us Jyotsna Moralez MD LAB BLOOD ORDERABLES Final Result Performing Organization Address [facility] Co de Phone Number [facility] [place] [address] * CBC with auto differential (06/20/2024 9:16 AM HIGHBALLER) WBC 9.0 3.8 - 9.9 K/cumm Hgb 13.3 13.0 - 17.5 g/dL [facility] Hct 39.6 38.9 - 50.3 % [facility] Plt 380 150 - 400 K/cumm [facility] MPV 9.6 9.1 - 12.3 fL [facility] RBC 4.39 4.30 - 5.80 M/cumm [facility] MCV 90.2 81.3 - 96.4 fL [facility] MCH 30.3 27.1 - 33.3 pg [facility] MCHC 33.6 32.3 - 35.7 g/dL [facility] RDW CV 12.1 11.1 - 14.9 % [facility] RDW SD 40.0 35.7 - 48.1 fL [facility] NRBC abs 0.00 0.00 - 0.01 K/cumm [facility] Blood (Blood, Venous) 06/20/2024 9:16 AM HIGHBALLER 06/20/2024 9:46 AM HIGHBALLER Jyotsna Moralez MD LAB BLOOD ORDERABLES Final Result Performing Organization Address [facility] Co de Phone Number [facility] [place] [address] * Ethanol (06/20/2024 9:16 AM HIGHBALLER) Ethanol <10 <=10 mg/dL Comment: Interpretive Data Legal limit of intoxication > or = 80 mg/dL Levels > or = 400 mg/dL are potentially TOXIC. Current interpretive data was last revised on 2018. Blood 06/20/2024 9:16 AM HIGHBALLER 06/20/2024 9:46 AM HIGHBALLER Jyotsna Moralez MD LAB BLOOD ORDERABLES Final Result Performing Organization Address [facility] Co de Phone Number [facility] [place] [address] * (ABNORMAL) Valproic acid level, total (06/20/2024 9:16 AM HIGHBALLER) Valproic Acid <15.0(L) 50.0 - 100.0 mcg/mL Comment: Interpretive Data Therapeutic or toxic effects of anticonvulsant drugs may occur at different concentrations in different patients and the correlation between dose and clinical effect must be evaluated individually. Current interpretative data was last revised on 13. Blood 06/20/2024 9:16 AM HIGHBALLER 06/20/2024 9:54 AM HIGHBALLER us Jyotsna Moralez MD LAB BLOOD ORDERABLES Final Result [facility] Department [place] [address] * (ABNORMAL) Comprehensive metabolic panel (06/20/2024 9:16 AM HIGHBALLER) Sodium 139 135 - 145 mmol/L Potassium, pl 4.4 3.3 - 4.9 mmol/L [facility] Chloride 101 97 - 110 mmol/L [facility] CO2 29 22 - 32 mmol/L [facility] Anion gap 9 2 - 15 mmol/L [facility] BUN 10 6 - 25 mg/dL [facility] Creatinine 0.67(L) 0.80 - 1.30 mg/dL [facility] Glucose 88 70 - 199 mg/dL [facility] Comment: Interpretive Data Fasting glucose >/= [...] Calcium 10.2 8.5 - 10.3 mg/dL [facility] Bilirubin, total 0.5 0.1 - 1.2 mg/dL [facility] Protein, pl 7.6 6.5 - 8.5 g/dL [facility] Albumin 4.7 3.5 - 5.0 g/dL [facility] Alk phos 84 40 - 130 Units/L [facility] ALT 28 7 - 55 Units/L [facility] AST 38 10 - 50 Units/L [facility] Blood 06/20/2024 9:16 AM HIGHBALLER 06/20/2024 9:46 AM HIGHBALLER us Jyotsna Moralez MD LAB BLOOD ORDERABLES Final Result [facility] [place] [address] * POCT Rapid HIV Antibody Community Screening-[facility]or Eligible (05/29/2024 4:17 AM HIGHBALLER) Rapid HIV, POC Negative Negative QC Control Line Acceptable Blood 05/29/2024 4:17 AM HIGHBALLER us Montrell Mir MD POINT OF CARE TEST ORDERAB LES Final Result * XR Hand Left 3+ views (05/29/2024 3:38 AM HIGHBALLER) Anatomical Region Laterality Modality Upper Extremities, Hand Left Computed Radiography 05/29/2024 3:41 AM HIGHBALLER Impressions 05/29/2024 7:26 AM HIGHBALLER The current study is compared with the [...] Junior Caldwell M.D. Narrative 05/29/2024 7:26 AM HIGHBALLER EXAMINATION: XR HAND LEFT 3 OR MORE [...] Result * Critical Care (05/26/2024 5:15 PM HIGHBALLER) Narrative Ethan Dewitt MD - 05/26/2024 5:15 PM HIGHBALLER Ethan Dewitt MD ? 05/26/2024 ??5:17 PM [...] microscopic and culture Urine (05/25/2024 10:06 PM HIGHBALLER) Color, ur Yellow Yellow Clarity, ur Clear Clear [facility] Specific gravity, ur 1.036(H) 1.003 - 1.030 [facility] pH, urine 6.5 [facility] Comment: Interpretive Data ? Urine pH is affected by diet, medications, systemic acid-base disturbances, and renal tubular function. ??pH may affect urinary stone formation. ??For example, urine pH below 6.0 may help reduce the tendency for calcium phosphate stones and pH greater than 6.0 may reduce the tendency for uric acid stone formation. Source: [facility] Current Interpretive Data was last revised on 2017 Protein, ur ql 1+(A) Negative [facility] Glucose, ur ql Negative Negative [facility] Ketones, ur Trace Negative [facility] Bilirubin, ur Negative Negative [facility] [facility] Blood, [facility] Negative Negative [facility] Urobilinogen, ur <2.0 <2.0 mg/dL [facility] Nitrite, ur Negative Negative [facility] Leukocyte esterase, ur Negative Negative [facility] UA reflex comment Reflex to microscopic UA will be performed. [facility] Urine 05/25/2024 10:0 6 PM HIGHBALLER 05/25/2024 10:08 PM HIGHBALLER Maria Guadalupe Hein NP LAB MICROBIOLOGY - GENERAL ORDERABLES Final Result Performing Organization Address City/State/[facility] Co de Phone Number [facility] [place] [address] * (ABNORMAL) Drugs of Abuse Screen, Urine without Confirmation (05/25/2024 10:06 PM HIGHBALLER) Amphetamine, ur Not Detected CutOff 500ng/mL Comment: Interpretive Data - Amphetamines: ??Samples containing greater than 500 ng/mL d-methamphetamine ??or other cross-reacting amphetamine compounds are reported as positive. ??Amphetamine immunoassays are subject to significant false positive rates due to cross-reactivity of non-amphetamine drugs. Confirmatory testing required for definitive results. Current Interpretive Data was last reviewed 2023. Barbiturates, ur Not Detected CutOff 200ng/mL [facility] Comment: Interpretive Data - Barbiturates: ??Samples containing greater than 200 ng/mL secobarbital or other cross-reacting barbiturate compounds are reported as positive. ??False positive and false negative results are possible. Confirmatory testing required for definitive results. Current Interpretive Data was last reviewed 2023. Benzodiazepines, ur Not Detected CutOff 100ng/mL [facility] Comment: Interpretive Data - Benzodiazepines: ??Samples containing greater than 100 ng/mL nordiazepam or other cross-reacting compounds are reported as positive. False positive and false negative results are possible. Confirmatory testing required for definitive results. Current Interpretive Data was last reviewed 2023. Cannabinoids, ur Screen Positive, presumptive (A) CutOff 50 ng/mL [facility] Comment: Interpretive Data - Cannabinoids: ??Samples containing greater than 50 ng/mL delta-9 THC -COOH or other cross-reacting compounds are reported as positive. ??False positive and false negative results are possible. ??Confirmatory testing required for definitive results. Current Interpretive Data was last reviewed 2023. Cocaine, ur Not Detected CutOff 150ng/mL [facility] Comment: Interpretive Data - Cocaine: ??Samples containing greater than 150 ng/mL benzoylecgonine or other cross-reacting compounds are reported as positive. False positive and false negative results are possible. Confirmatory testing required for definitive results. Current Interpretive Data was last reviewed 2023. Fentanyl, Ur Not Detected CutOff 5 ng/mL [facility] Comment: Interpretive Data - Fentanyl: ?? Samples containing greater than 5 ng/mL norfentanyl, fentanyl, or other cross-reacting fentanyl compounds are reported as positive. False positive and false negative results are possible. Confirmatory testing required for definitive results. Current Interpretive Data was last reviewed 2023. Methadone, ur Not Detected CutOff 300ng/mL [facility] Comment: Interpretive Data - Methadone: ??Samples containing greater than 300 ng/mL d,l-methadone or other cross-reacting compounds are reported as positive. ??False positive and false negative results are possible. Confirmatory testing required for definitive results. Current Interpretive Data was last reviewed 2023. Opiates, ur Not Detected CutOff 300ng/mL [facility] Comment: Interpretive Data - Opiates: ??Samples containing greater than 300 ng/mL morphine or other cross-reacting compounds are reported as positive. ??False positive and false negative results are possible. Confirmatory testing required for definitive results. Current Interpretive Data was last reviewed 2023. Oxycodone, ur Not Detected CutOff 100ng/mL [facility] Comment: Interpretive Data - Oxycodone: ??Samples containing greater than 100 ng/mL oxycodone or other cross-reacting compounds are reported as ??positive. ??False positive and false negative results are possible. Confirmatory testing required for definitive results. Current Interpretive Data was last reviewed 2023. Phencyclidine, ur Not Detected CutOff 25 ng/mL [facility] Comment: Interpretive Data - Phencyclidine: ??Samples containing greater than 25 ng/mL phencyclidine or other cross-reacting compounds are reported as positive. ??False positive and false negative results are possible. Confirmatory testing required for definitive results. Current Interpretive Data was last reviewed 2023. Urine Creatinine 296 mg/dL [facility] Comment: Interpretive Data Urine Creatinine: < 10 mg/dL is extremely dilute = or > 10 but < 20 mg/dL is dilute = or > 20 mg/dL is normal Current Interpretive Data was last revised on 2017. Urine 05/25/2024 10:0 6 PM HIGHBALLER 05/25/2024 10:16 PM HIGHBALLER Narrative [facility] - 05/25/2024 10:49 PM HIGHBALLER Drug of Abuse screening is performed by immunoassay for medical purposes only. ??This is not to be used for Pain Management purposes. Maria Guadalupe Hein NP LAB URINE ORDERABLES Final Result [facility] Department [place] [address] * (ABNORMAL) Urinalysis, microscopic only (05/25/2024 10:06 PM HIGHBALLER) WBC, ur 0-5 0 - 5 /HPF RBC, ur 0-2 0 - 2 /HPF [facility] Bacteria, ur Trace(A) [facility] Mucous, ur Present(A) [facility] Culture Reflex Comment Reflex conditions for urine culture (WBC >10) not met. [facility] Urine 05/25/2024 10:0 6 PM HIGHBALLER 05/25/2024 10:08 PM HIGHBALLER Maria Guadalupe Hein OPTOELECTRONIC TECHNICIAN LAB URINE ORDERABLES Final Result [facility] Department [place] [address] * eGFR (05/25/2024 5:37 PM HIGHBALLER) eGFR >90 >=60 mL/min/1. 73 m2 Comment: [...] last reviewed 2021. Blood 05/25/2024 5:37 PM HIGHBALLER 05/25/2024 6:06 PM HIGHBALLER us Maria Guadalupe Hein OPTOELECTRONIC TECHNICIAN LAB BLOOD ORDERABLES Final Result [facility] Department [place] [address] * (ABNORMAL) Differential, auto (05/25/2024 5:37 PM HIGHBALLER) Neutrophil abs 7.9(H) 1.5 - 6.5 K/cumm Imm gran abs 0.0 0.0 - 0.1 K/cumm [facility] Lymphocyte abs 3.6(H) 0.8 - 3.3 K/cumm [facility] Monocyte abs 1.4(H) 0.2 - 0.8 K/cumm [facility] Eosinophil abs 0.1 0.0 - 0.5 K/cumm [facility] Basophil abs 0.1 0.0 - 0.1 K/cumm [facility] Neutrophil pct 60.3 % [facility] Comment: Interpretive Data Percent cell count reference ranges are not reported, since discordance with absolute values may lead to misinterpretation of CBC data. Current Interpretive Data was last revised on 2017. Imm gran pct 0.3 % [facility] Comment: Interpretive Data Percent cell count reference ranges are not reported, since discordance with absolute values may lead to misinterpretation of CBC data. Current Interpretive Data was last revised on 2017. Lymphocyte pct 27.6 % [facility] Comment: Interpretive Data Percent cell count reference ranges are not reported, since discordance with absolute values may lead to misinterpretation of CBC data. Current Interpretive Data was last revised on 2017. Monocyte pct 10.6 % [facility] Comment: Interpretive Data Percent cell count reference ranges are not reported, since discordance with absolute values may lead to misinterpretation of CBC data. Current Interpretive Data was last revised on 2017. Eosinophil pct 0.5 % [facility] Comment: Interpretive Data Percent cell count reference ranges are not reported, since discordance with absolute values may lead to misinterpretation of CBC data. Current Interpretive Data was last revised on 2017. Basophil pct 0.7 % [facility] Comment: Interpretive Data Percent cell count reference ranges are not reported, since discordance with absolute values may lead to misinterpretation of CBC data. Current Interpretive Data was last revised on 2017. Blood 05/25/2024 5:37 PM HIGHBALLER 05/25/2024 6:06 PM HIGHBALLER Maria Guadalupe Hein OPTOELECTRONIC TECHNICIAN LAB BLOOD ORDERABLES Final Result Performing Organization Address City/[facility] Co de Phone Number [facility] [place] [address] * Thyroid Function [place] (05/25/2024 5:37 PM HIGHBALLER) [facility] TSH 0.67 0.30 - 4.20 mcIUnit/mL Blood 05/25/2024 5:37 PM HIGHBALLER 05/25/2024 6:06 PM HIGHBALLER Maria Guadalupe Hein OPTOELECTRONIC TECHNICIAN LAB BLOOD ORDERABLES Final Result Performing Organization Address [facility] de Phone Number [facility] [place] [address] * (ABNORMAL) CBC with auto differential (05/25/2024 5:37 PM HIGHBALLER) [facility] WBC 13.1(H) 3.8 - 9.9 K/cumm Hgb 12.2(L) 13.0 - 17.5 g/dL [facility] Hct 35.2(L) 38.9 - 50.3 % [facility] Plt 413(H) 150 - 400 K/cumm [facility] MPV 10.1 9.1 - 12.3 fL [facility] RBC 4.07(L) 4.30 - 5.80 M/cumm [facility] MCV 86.5 81.3 - 96.4 fL [facility] MCH 30.0 27.1 - 33.3 pg [facility] MCHC 34.7 32.3 - 35.7 g/dL [facility] RDW CV 12.2 11.1 - 14.9 % [facility] RDW SD 38.2 35.7 - 48.1 fL [facility] NRBC abs 0.00 0.00 - 0.01 K/cumm [facility] Blood 05/25/2024 5:37 PM HIGHBALLER 05/25/2024 6:06 PM HIGHBALLER Maria Guadalupe Hein OPTOELECTRONIC TECHNICIAN LAB BLOOD ORDERABLES Final Result Performing Organization Address [facility] de Phone Number [facility] [place] [address] * Ethanol (05/25/2024 5:37 PM HIGHBALLER) Ethanol <10 <=10 mg/dL Comment: Interpretive Data Legal limit of intoxication > or = 80 mg/dL Levels > or = 400 mg/dL are potentially TOXIC. Current interpretive data was last revised on 2018. Blood 05/25/2024 5:37 PM HIGHBALLER 05/25/2024 6:06 PM HIGHBALLER Maria Guadalupe Hein OPTOELECTRONIC TECHNICIAN LAB BLOOD ORDERABLES Final Result Performing Organization Address [facility] de Phone Number [facility] Department [place] [address] * (ABNORMAL) Valproic acid level, total (05/25/2024 5:37 PM HIGHBALLER) Valproic Acid <15.0(L) 50.0 - 100.0 mcg/mL Comment: Interpretive Data Therapeutic or toxic effects of anticonvulsant drugs may occur at different concentrations in different patients and the correlation between dose and clinical effect must be evaluated individually. Current interpretative data was last revised on 13. Blood 05/25/2024 5:37 PM HIGHBALLER 05/25/2024 6:06 PM HIGHBALLER Maria Guadalupe Hein OPTOELECTRONIC TECHNICIAN LAB BLOOD ORDERABLES Final Result Performing Organization Address [facility] de Phone Number [facility] Department [place] [address] * (ABNORMAL) Carbamazepine level, total (05/25/2024 5:37 PM HIGHBALLER) Pathologist [facility] Carbamazepine <3.0(L) 4.0 - 12.0 mcg/mL Comment: Interpretive Data Therapeutic or Toxic effect of anticonvulsant drugs may occur at different concentrations in different patients and the correlation between dose and clinical effect must be evaluated individually. Current interpretive data was last revised on 13. Blood 05/25/2024 5:37 PM HIGHBALLER 05/25/2024 6:06 PM HIGHBALLER Maria Guadalupe Hein NP LAB BLOOD ORDERABLES Final Result [facility] [place] [address] * Basic metabolic panel (05/25/2024 5:37 PM HIGHBALLER) [facility] Sodium 136 135 - 145 mmol/L Potassium, pl 3.8 3.3 - 4.9 mmol/L [facility] Chloride 100 97 - 110 mmol/L [facility] CO2 25 22 - 32 mmol/L [facility] Anion gap 11 2 - 15 mmol/L [facility] BUN 20 6 - 25 mg/dL [facility] Creatinine 0.82 0.80 - 1.30 mg/dL [facility] Glucose 119 70 - 199 mg/dL [facility] Comment: Interpretive Data Fasting glucose >/= [...] 2022. Calcium 9.8 8.5 - 10.3 mg/dL [facility] Blood 05/25/2024 5:37 PM HIGHBALLER 05/25/2024 6:06 PM HIGHBALLER us Maria Guadalupe Hein OPTOELECTRONIC TECHNICIAN LAB BLOOD ORDERABLES Final Result [facility] Department [place] [address] * (ABNORMAL) Drugs of Abuse Screen, Urine with Reflex Confirmation (05/19/2024 9:28 AM HIGHBALLER) Amphetamine, ur Not Detected CutOff 500ng/mL Comment: Interpretive Data - Amphetamines: ??Samples containing greater than 500 ng/mL d-methamphetamine ??or other cross-reacting amphetamine compounds are reported as positive. ??Amphetamine immunoassays are subject to significant false positive rates due to cross-reactivity of non-amphetamine drugs. Confirmatory testing required for definitive results. Current Interpretive Data was last reviewed 2023. Barbiturates, ur Not Detected CutOff 200ng/mL [facility] Comment: Interpretive Data - Barbiturates: ??Samples containing greater than 200 ng/mL secobarbital or other cross-reacting barbiturate compounds are reported as positive. ??False positive and false negative results are possible. Confirmatory testing required for definitive results. Current Interpretive Data was last reviewed 2023. Benzodiazepines, ur Not Detected CutOff 100ng/mL [facility] Comment: Interpretive Data - Benzodiazepines: ??Samples containing greater than 100 ng/mL nordiazepam or other cross-reacting compounds are reported as positive. False positive and false negative results are possible. Confirmatory testing required for definitive results. Current Interpretive Data was last reviewed 2023. Cannabinoids, ur Screen Positive, presumptive (A) CutOff 50 ng/mL [facility] Comment: Interpretive Data - Cannabinoids: ??Samples containing greater than 50 ng/mL delta-9 THC -COOH or other cross-reacting compounds are reported as positive. ??False positive and false negative results are possible. ??Confirmatory testing required for definitive results. Current Interpretive Data was last reviewed 2023. Cocaine, ur Not Detected CutOff 150ng/mL [facility] Comment: Interpretive Data - Cocaine: ??Samples containing greater than 150 ng/mL benzoylecgonine or other cross-reacting compounds are reported as positive. False positive and false negative results are possible. Confirmatory testing required for definitive results. Current Interpretive Data was last reviewed 2023. Fentanyl, Ur Not Detected CutOff 5 ng/mL [facility] Comment: Interpretive Data - Fentanyl: ?? Samples containing greater than 5 ng/mL norfentanyl, fentanyl, or other cross-reacting fentanyl compounds are reported as positive. False positive and false negative results are possible. Confirmatory testing required for definitive results. Current Interpretive Data was last reviewed 2023. Methadone, ur Not Detected CutOff 300ng/mL [facility] Comment: Interpretive Data - Methadone: ??Samples containing greater than 300 ng/mL d,l-methadone or other cross-reacting compounds are reported as positive. ??False positive and false negative results are possible. Confirmatory testing required for definitive results. Current Interpretive Data was last reviewed 2023. Opiates, ur Not Detected CutOff 300ng/mL [facility] Comment: Interpretive Data - Opiates: ??Samples containing greater than 300 ng/mL morphine or other cross-reacting compounds are reported as positive. ??False positive and false negative results are possible. Confirmatory testing required for definitive results. Current Interpretive Data was last reviewed 2023. Oxycodone, ur Not Detected CutOff 100ng/mL [facility] Comment: Interpretive Data - Oxycodone: ??Samples containing greater than 100 ng/mL oxycodone or other cross-reacting compounds are reported as ??positive. ??False positive and false negative results are possible. Confirmatory testing required for definitive results. Current Interpretive Data was last reviewed 2023. Phencyclidine, ur Not Detected CutOff 25 ng/mL [facility] Comment: Interpretive Data - Phencyclidine: ??Samples containing greater than 25 ng/mL phencyclidine or other cross-reacting compounds are reported as positive. ??False positive and false negative results are possible. Confirmatory testing required for definitive results. Current Interpretive Data was last reviewed 2023. Urine Creatinine 75 mg/dL [facility] Comment: Interpretive Data Urine Creatinine: < 10 mg/dL is extremely dilute = or > 10 but < 20 mg/dL is dilute = or > 20 mg/dL is normal Current Interpretive Data was last revised on 2017. Urine 05/19/2024 9:28 AM HIGHBALLER 05/19/2024 10:13 AM HIGHBALLER Narrative [facility] - 05/19/2024 10:44 AM HIGHBALLER Drug of Abuse screening is performed by immunoassay for medical purposes only. ??This is not to be used for Pain Management purposes. ??If Detected, confirmation testing will be performed for Amphetamines, Cocaine, Fentanyl, Methadone, Opiates, Oxycodone or Phencyclidine. us Radha Saleh MD LAB URINE ORDERABLES Final Resu lt [facility] Department [place] [address] * eGFR (05/19/2024 4:58 AM HIGHBALLER) eGFR >90 >=60 mL/min/1. 73 m2 Comment: [...] last reviewed 2021. Blood 05/19/2024 4:58 AM HIGHBALLER 05/19/2024 6:25 AM HIGHBALLER us Denise Gonzalez MD PhD LAB BLOOD ORDERABLES Final Result [facility] Department [place] [address] * Differential, auto (05/19/2024 4:58 AM HIGHBALLER) Neutrophil abs 4.7 1.5 - 6.5 K/cumm Imm gran abs 0.0 0.0 - 0.1 K/cumm [facility] Lymphocyte abs 3.0 0.8 - 3.3 K/cumm [facility] Monocyte abs 0.7 0.2 - 0.8 K/cumm [facility] Eosinophil abs 0.3 0.0 - 0.5 K/cumm [facility] Basophil abs 0.1 0.0 - 0.1 K/cumm [facility] Neutrophil pct 53.4 % [facility] Comment: Interpretive Data Percent cell count reference ranges are not reported, since discordance with absolute values may lead to misinterpretation of CBC data. Current Interpretive Data was last revised on 2017. Imm gran pct 0.3 % [facility] Comment: Interpretive Data Percent cell count reference ranges are not reported, since discordance with absolute values may lead to misinterpretation of CBC data. Current Interpretive Data was last revised on 2017. Lymphocyte pct 33.7 % [facility] Comment: Interpretive Data Percent cell count reference ranges are not reported, since discordance with absolute values may lead to misinterpretation of CBC data. Current Interpretive Data was last revised on 2017. Monocyte pct 8.0 % [facility] Comment: Interpretive Data Percent cell count reference ranges are not reported, since discordance with absolute values may lead to misinterpretation of CBC data. Current Interpretive Data was last revised on 2017. Eosinophil pct 3.4 % [facility] Comment: Interpretive Data Percent cell count reference ranges are not reported, since discordance with absolute values may lead to misinterpretation of CBC data. Current Interpretive Data was last revised on 2017. Basophil pct 1.2 % [facility] Comment: Interpretive Data Percent cell count reference ranges are not reported, since discordance with absolute values may lead to misinterpretation of CBC data. Current Interpretive Data was last revised on 2017. Blood 05/19/2024 4:58 AM HIGHBALLER 05/19/2024 6:25 AM HIGHBALLER us Denise Gonzalez MD PhD LAB BLOOD ORDERABLES Final Result [facility] Department [place] [address] * (ABNORMAL) CBC with auto differential (05/19/2024 4:58 AM HIGHBALLER) WBC 8.9 3.8 - 9.9 K/cumm Hgb 11.8(L) 13.0 - 17.5 g/dL [facility] Hct 35.3(L) 38.9 - 50.3 % [facility] Plt 348 150 - 400 K/cumm [facility] MPV 10.2 9.1 - 12.3 fL [facility] RBC 3.86(L) 4.30 - 5.80 M/cumm [facility] MCV 91.5 81.3 - 96.4 fL [facility] MCH 30.6 27.1 - 33.3 pg [facility] MCHC 33.4 32.3 - 35.7 g/dL [facility] RDW CV 12.2 11.1 - 14.9 % [facility] RDW SD 40.7 35.7 - 48.1 fL [facility] NRBC abs 0.00 0.00 - 0.01 K/cumm [facility] Blood 05/19/2024 4:58 AM HIGHBALLER 05/19/2024 6:25 AM HIGHBALLER Denise Gonzalez MD PhD LAB BLOOD ORDERABLES Final Result [facility] [place] [address] * (ABNORMAL) Comprehensive metabolic panel (05/19/2024 4:58 AM HIGHBALLER) Sodium 140 135 - 145 mmol/L Potassium, pl 5.6(H) 3.3 - 4.9 mmol/L [facility] Chloride 102 97 - 110 mmol/L [facility] CO2 27 22 - 32 mmol/L [facility] Anion gap 11 2 - 15 mmol/L [facility] BUN 25 6 - 25 mg/dL [facility] Creatinine 0.93 0.80 - 1.30 mg/dL [facility] Glucose 107 70 - 199 mg/dL [facility] Comment: Interpretive Data Fasting glucose >/= [...] 2022. Calcium 10.0 8.5 - 10.3 mg/dL [facility] Bilirubin, total <0.2 0.1 - 1.2 mg/dL [facility] Protein, pl 7.3 6.5 - 8.5 g/dL [facility] Albumin 4.4 3.5 - 5.0 g/dL [facility] Alk phos 63 40 - 130 Units/L [facility] ALT 71(H) 7 - 55 Units/L [facility] AST 54(H) 10 - 50 Units/L [facility] Blood 05/19/2024 4:58 AM HIGHBALLER 05/19/2024 6:25 AM HIGHBALLER Denise Gonzalez MD PhD LAB BLOOD ORDERABLES Final Result Performing Organization Address City/[facility]/ZIP Co de Phone Number [facility] Department [place] [address] * eGFR (05/18/2024 4:54 AM HIGHBALLER) [facility] eGFR >90 >=60 mL/min/1. 73 m2 Comment: [...] last reviewed 2021. Blood 05/18/2024 4:54 AM HIGHBALLER 05/18/2024 5:45 AM HIGHBALLER us Denise Gonzalez MD PhD LAB BLOOD ORDERABLES Final Result Performing Organization Address [facility]/ZIP Co de Phone Number [facility] Department [place] [address] * (ABNORMAL) Differential, auto (05/18/2024 4:54 AM HIGHBALLER) Neutrophil abs 2.5 1.5 - 6.5 K/cumm Imm gran abs 0.0 0.0 - 0.1 K/cumm [facility] Lymphocyte abs 3.6(H) 0.8 - 3.3 K/cumm [facility] Monocyte abs 0.5 0.2 - 0.8 K/cumm [facility] Eosinophil abs 0.3 0.0 - 0.5 K/cumm [facility] Basophil abs 0.1 0.0 - 0.1 K/cumm [facility] Neutrophil pct 36.3 % [facility] Comment: Interpretive Data Percent cell count reference ranges are not reported, since discordance with absolute values may lead to misinterpretation of CBC data. Current Interpretive Data was last revised on 2017. Imm gran pct 0.1 % [facility] Comment: Interpretive Data Percent cell count reference ranges are not reported, since discordance with absolute values may lead to misinterpretation of CBC data. Current Interpretive Data was last revised on 2017. Lymphocyte pct 51.6 % [facility] Comment: Interpretive Data Percent cell count reference ranges are not reported, since discordance with absolute values may lead to misinterpretation of CBC data. Current Interpretive Data was last revised on 2017. Monocyte pct 7.3 % [facility] Comment: Interpretive Data Percent cell count reference ranges are not reported, since discordance with absolute values may lead to misinterpretation of CBC data. Current Interpretive Data was last revised on 2017. Eosinophil pct 3.6 % [facility] Comment: Interpretive Data Percent cell count reference ranges are not reported, since discordance with absolute values may lead to misinterpretation of CBC data. Current Interpretive Data was last revised on 2017. Basophil pct 1.1 % [facility] Comment: Interpretive Data Percent cell count reference ranges are not reported, since discordance with absolute values may lead to misinterpretation of CBC data. Current Interpretive Data was last revised on 2017. Blood 05/18/2024 4:54 AM HIGHBALLER 05/18/2024 5:49 AM HIGHBALLER us Denise Gonzalez MD PhD LAB BLOOD ORDERABLES Final Result [facility] [place] [address] * CBC with auto differential (05/18/2024 4:54 AM HIGHBALLER) [facility] WBC 7.0 3.8 - 9.9 K/cumm Hgb 13.5 13.0 - 17.5 g/dL [facility] Hct 40.9 38.9 - 50.3 % [facility] Plt 341 150 - 400 K/cumm [facility] MPV 9.9 9.1 - 12.3 fL [facility] RBC 4.48 4.30 - 5.80 M/cumm [facility] MCV 91.3 81.3 - 96.4 fL [facility] MCH 30.1 27.1 - 33.3 pg [facility] MCHC 33.0 32.3 - 35.7 g/dL [facility] RDW CV 12.0 11.1 - 14.9 % [facility] RDW SD 40.5 35.7 - 48.1 fL [facility] NRBC abs 0.00 0.00 - 0.01 K/cumm [facility] Blood 05/18/2024 4:54 AM HIGHBALLER 05/18/2024 5:49 AM HIGHBALLER Denise Gonzalez MD PhD LAB BLOOD ORDERABLES Final Result Performing Organization Address City/[facility]/ZIP Co de Phone Number [facility] Department [place] [address] * (ABNORMAL) Comprehensive metabolic panel (05/18/2024 4:54 AM HIGHBALLER) [facility] Sodium 144 135 - 145 mmol/L Potassium, pl 4.9 3.3 - 4.9 mmol/L [facility] Chloride 104 97 - 110 mmol/L [facility] CO2 29 22 - 32 mmol/L [facility] Anion gap 11 2 - 15 mmol/L [facility] BUN 12 6 - 25 mg/dL [facility] Creatinine 0.84 0.80 - 1.30 mg/dL [facility] Glucose 95 70 - 199 mg/dL [facility] Comment: Interpretive Data Fasting glucose >/= [...] 2022. Calcium 9.9 8.5 - 10.3 mg/dL [facility] Bilirubin, total <0.2 0.1 - 1.2 mg/dL [facility] Protein, pl 7.2 6.5 - 8.5 g/dL [facility] Albumin 4.3 3.5 - 5.0 g/dL [facility] Alk phos 57 40 - 130 Units/L [facility] ALT 61(H) 7 - 55 Units/L [facility] AST 59(H) 10 - 50 Units/L [facility] Blood 05/18/2024 4:54 AM HIGHBALLER 05/18/2024 5:45 AM HIGHBALLER us Denise Gonzalez MD PhD LAB BLOOD ORDERABLES Final Result [facility] [place] [address] * eGFR (05/17/2024 4:30 AM HIGHBALLER) eGFR >90 >=60 mL/min/1. 73 m2 Comment: [...] last reviewed 2021. Blood 05/17/2024 4:30 AM HIGHBALLER 05/17/2024 5:30 AM HIGHBALLER us Denise Gonzalez MD PhD LAB BLOOD ORDERABLES Final Result [facility] [place] [address] * Differential, auto (05/17/2024 4:30 AM HIGHBALLER) Pathologist [facility] Neutrophil abs 2.8 1.5 - 6.5 K/cumm Imm gran abs 0.0 0.0 - 0.1 K/cumm [facility] Lymphocyte abs 2.2 0.8 - 3.3 K/cumm [facility] Monocyte abs 0.4 0.2 - 0.8 K/cumm [facility] Eosinophil abs 0.3 0.0 - 0.5 K/cumm [facility] Basophil abs 0.1 0.0 - 0.1 K/cumm [facility] Neutrophil pct 49.1 % [facility] Comment: Interpretive Data Percent cell count [...] revised on 2017. Lymphocyte pct 38.9 % [facility] Comment: Interpretive Data Percent cell count reference ranges are not reported, since discordance with absolute values may lead to misinterpretation of CBC data. Current Interpretive Data was last revised on 2017. Monocyte pct 6.2 % [facility] Comment: Interpretive Data Percent cell count reference ranges are not reported, since discordance with absolute values may lead to misinterpretation of CBC data. Current Interpretive Data was last revised on 2017. Eosinophil pct 4.5 % [facility] Comment: Interpretive Data Percent cell count reference ranges are not reported, since discordance with absolute values may lead to misinterpretation of CBC data. Current Interpretive Data was last revised on 2017. Basophil pct 1.1 % [facility] Comment: Interpretive Data Percent cell count reference ranges are not reported, since discordance with absolute values may lead to misinterpretation of CBC data. Current Interpretive Data was last revised on 2017. Blood 05/17/2024 4:30 AM HIGHBALLER 05/17/2024 5:33 AM HIGHBALLER us Denise Gonzalez MD PhD LAB BLOOD ORDERABLES Final Result [facility] Department [place] [address] * (ABNORMAL) CBC with auto differential (05/17/2024 4:30 AM HIGHBALLER) WBC 5.6 3.8 - 9.9 K/cumm Hgb 11.7(L) 13.0 - 17.5 g/dL [facility] Hct 34.4(L) 38.9 - 50.3 % [facility] Plt 309 150 - 400 K/cumm [facility] MPV 10.0 9.1 - 12.3 fL [facility] RBC 3.90(L) 4.30 - 5.80 M/cumm [facility] MCV 88.2 81.3 - 96.4 fL [facility] MCH 30.0 27.1 - 33.3 pg [facility] MCHC 34.0 32.3 - 35.7 g/dL [facility] RDW CV 12.0 11.1 - 14.9 % [facility] RDW SD 38.7 35.7 - 48.1 fL [facility] NRBC abs 0.00 0.00 - 0.01 K/cumm [facility] Blood 05/17/2024 4:30 AM HIGHBALLER 05/17/2024 5:33 AM HIGHBALLER us Denise Gonzalez MD PhD LAB BLOOD ORDERABLES Final Result [facility] Department [place] [address] * (ABNORMAL) Comprehensive metabolic panel (05/17/2024 4:30 AM HIGHBALLER) Pathologist [facility] Sodium 142 135 - 145 mmol/L Potassium, pl 4.6 3.3 - 4.9 mmol/L [facility] Chloride 105 97 - 110 mmol/L [facility] CO2 30 22 - 32 mmol/L [facility] Anion gap 7 2 - 15 mmol/L [facility] BUN 15 6 - 25 mg/dL [facility] Creatinine 0.72(L) 0.80 - 1.30 mg/dL [facility] Glucose 117 70 - 199 mg/dL [facility] Comment: Interpretive Data Fasting glucose >/= [...] 2022. Calcium 9.5 8.5 - 10.3 mg/dL [facility] Bilirubin, total <0.2 0.1 - 1.2 mg/dL [facility] Protein, pl 6.7 6.5 - 8.5 g/dL [facility] Albumin 3.9 3.5 - 5.0 g/dL [facility] Alk phos 55 40 - 130 Units/L [facility] ALT 33 7 - 55 Units/L [facility] AST 28 10 - 50 Units/L [facility] Blood 05/17/2024 4:30 AM HIGHBALLER 05/17/2024 5:30 AM HIGHBALLER us Denise Gonzalez MD PhD LAB BLOOD ORDERABLES Final Result [facility] Department [place] [address] * eGFR (05/16/2024 5:18 AM HIGHBALLER) eGFR >90 >=60 mL/min/1. 73 m2 Comment: [...] last reviewed 2021. Blood 05/16/2024 5:18 AM HIGHBALLER 05/16/2024 6:40 AM HIGHBALLER us Denise Gonzalez MD PhD LAB BLOOD ORDERABLES Final Result [facility] [place] [address] * Differential, auto (05/16/2024 5:18 AM HIGHBALLER) Neutrophil abs 2.7 1.5 - 6.5 K/cumm Imm gran abs 0.0 0.0 - 0.1 K/cumm [facility] Lymphocyte abs 2.6 0.8 - 3.3 K/cumm [facility] Monocyte abs 0.4 0.2 - 0.8 K/cumm [facility] Eosinophil abs 0.3 0.0 - 0.5 K/cumm [facility] Basophil abs 0.1 0.0 - 0.1 K/cumm [facility] Neutrophil pct 44.1 % [facility] Comment: Interpretive Data Percent cell count reference ranges are not reported, since discordance with absolute values may lead to misinterpretation of CBC data. Current Interpretive Data was last revised on 2017. Imm gran pct 0.3 % [facility] Comment: Interpretive Data Percent cell count reference ranges are not reported, since discordance with absolute values may lead to misinterpretation of CBC data. Current Interpretive Data was last revised on 2017. Lymphocyte pct 42.0 % [facility] Comment: Interpretive Data Percent cell count reference ranges are not reported, since discordance with absolute values may lead to misinterpretation of CBC data. Current Interpretive Data was last revised on 2017. Monocyte pct 7.2 % [facility] Comment: Interpretive Data Percent cell count reference ranges are not reported, since discordance with absolute values may lead to misinterpretation of CBC data. Current Interpretive Data was last revised on 2017. Eosinophil pct 5.4 % [facility] Comment: Interpretive Data Percent cell count reference ranges are not reported, since discordance with absolute values may lead to misinterpretation of CBC data. Current Interpretive Data was last revised on 2017. Basophil pct 1.0 % [facility] Comment: Interpretive Data Percent cell count reference ranges are not reported, since discordance with absolute values may lead to misinterpretation of CBC data. Current Interpretive Data was last revised on 2017. Blood 05/16/2024 5:18 AM HIGHBALLER 05/16/2024 6:40 AM HIGHBALLER us Denise Gonzalez MD PhD LAB BLOOD ORDERABLES Final Result [facility] Department [place] [address] * (ABNORMAL) CBC with auto differential (05/16/2024 5:18 AM HIGHBALLER) WBC 6.2 3.8 - 9.9 K/cumm Hgb 11.1(L) 13.0 - 17.5 g/dL [facility] Hct 32.6(L) 38.9 - 50.3 % [facility] Plt 291 150 - 400 K/cumm [facility] MPV 10.0 9.1 - 12.3 fL [facility] RBC 3.66(L) 4.30 - 5.80 M/cumm [facility] MCV 89.1 81.3 - 96.4 fL [facility] MCH 30.3 27.1 - 33.3 pg [facility] MCHC 34.0 32.3 - 35.7 g/dL [facility] RDW CV 11.9 11.1 - 14.9 % [facility] RDW SD 38.4 35.7 - 48.1 fL [facility] NRBC abs 0.00 0.00 - 0.01 K/cumm [facility] Blood 05/16/2024 5:18 AM HIGHBALLER 05/16/2024 6:40 AM HIGHBALLER us Denise Gonzalez MD PhD LAB BLOOD ORDERABLES Final Result Performing Organization Address [facility] Co de Phone Number [facility] Department [place] [address] * Vancomycin level trough prior to 4th dose (05/16/2024 5:18 AM HIGHBALLER) [facility] Vancomycin trough 15.0 10.0 - 20.0 mcg/mL Comment:Repeated and Verifie d Blood 05/16/2024 5:18 AM HIGHBALLER 05/16/2024 6:40 AM HIGHBALLER Narrative [facility] - 05/16/2024 7:32 AM HIGHBALLER prior to 4th dose Malcolm Deras MD LAB BLOOD ORDERABLES Fin al Result Performing Organization Address [facility] de Phone Number [facility] Department [place] [address] * (ABNORMAL) Comprehensive metabolic panel (05/16/2024 5:18 AM HIGHBALLER) [facility] Sodium 140 135 - 145 mmol/L Potassium, pl 4.3 3.3 - 4.9 mmol/L [facility] Chloride 106 97 - 110 mmol/L [facility] CO2 28 22 - 32 mmol/L [facility] Anion gap 6 2 - 15 mmol/L [facility] BUN 12 6 - 25 mg/dL [facility] Creatinine 0.70(L) 0.80 - 1.30 mg/dL [facility] Glucose 91 70 - 199 mg/dL [facility] Comment: Interpretive Data Fasting glucose >/= [...] 2022. Calcium 9.2 8.5 - 10.3 mg/dL [facility] Bilirubin, total <0.2 0.1 - 1.2 mg/dL [facility] Protein, pl 6.4(L) 6.5 - 8.5 g/dL [facility] Albumin 3.7 3.5 - 5.0 g/dL [facility] Alk phos 53 40 - 130 Units/L [facility] ALT 26 7 - 55 Units/L [facility] AST 21 10 - 50 Units/L [facility] Blood 05/16/2024 5:18 AM HIGHBALLER 05/16/2024 6:40 AM HIGHBALLER us Denise Gonzalez MD PhD LAB BLOOD ORDERABLES Final Result [facility] Department [place] [address] * eGFR (05/15/2024 4:41 AM HIGHBALLER) eGFR >90 >=60 mL/min/1. 73 m2 Comment: [...] last reviewed 2021. Blood 05/15/2024 4:41 AM HIGHBALLER 05/15/2024 5:48 AM HIGHBALLER Denise Gonzalez MD PhD LAB BLOOD ORDERABLES Final Result [facility] [place] [address] * Differential, auto (05/15/2024 4:41 AM HIGHBALLER) Neutrophil abs 2.7 1.5 - 6.5 K/cumm Imm gran abs 0.0 0.0 - 0.1 K/cumm [facility] Lymphocyte abs 2.7 0.8 - 3.3 K/cumm [facility] Monocyte abs 0.6 0.2 - 0.8 K/cumm [facility] Eosinophil abs 0.5 0.0 - 0.5 K/cumm [facility] Basophil abs 0.1 0.0 - 0.1 K/cumm [facility] Neutrophil pct 41.3 % [facility] Comment: Interpretive Data Percent cell count reference ranges are not reported, since discordance with absolute values may lead to misinterpretation of CBC data. Current Interpretive Data was last revised on 2017. Imm gran pct 0.3 % [facility] Comment: Interpretive Data Percent cell count reference ranges are not reported, since discordance with absolute values may lead to misinterpretation of CBC data. Current Interpretive Data was last revised on 2017. Lymphocyte pct 41.3 % [facility] Comment: Interpretive Data Percent cell count reference ranges are not reported, since discordance with absolute values may lead to misinterpretation of CBC data. Current Interpretive Data was last revised on 2017. Monocyte pct 9.0 % [facility] Comment: Interpretive Data Percent cell count reference ranges are not reported, since discordance with absolute values may lead to misinterpretation of CBC data. Current Interpretive Data was last revised on 2017. Eosinophil pct 7.0 % [facility] Comment: Interpretive Data Percent cell count reference ranges are not reported, since discordance with absolute values may lead to misinterpretation of CBC data. Current Interpretive Data was last revised on 2017. Basophil pct 1.1 % [facility] Comment: Interpretive Data Percent cell count reference ranges are not reported, since discordance with absolute values may lead to misinterpretation of CBC data. Current Interpretive Data was last revised on 2017. Blood 05/15/2024 4:41 AM HIGHBALLER 05/15/2024 5:49 AM HIGHBALLER us Denise Gonzalez MD PhD LAB BLOOD ORDERABLES Final Result [facility] [place] [address] * (ABNORMAL) CBC with auto differential (05/15/2024 4:41 AM HIGHBALLER) WBC 6.5 3.8 - 9.9 K/cumm Hgb 10.9(L) 13.0 - 17.5 g/dL [facility] Hct 31.7(L) 38.9 - 50.3 % [facility] Plt 310 150 - 400 K/cumm [facility] MPV 10.0 9.1 - 12.3 fL [facility] RBC 3.60(L) 4.30 - 5.80 M/cumm [facility] MCV 88.1 81.3 - 96.4 fL [facility] MCH 30.3 27.1 - 33.3 pg [facility] MCHC 34.4 32.3 - 35.7 g/dL [facility] RDW CV 11.6 11.1 - 14.9 % [facility] RDW SD 37.6 35.7 - 48.1 fL [facility] NRBC abs 0.00 0.00 - 0.01 K/cumm [facility] Blood 05/15/2024 4:41 AM HIGHBALLER 05/15/2024 5:49 AM HIGHBALLER us Denise Gonzalez MD PhD LAB BLOOD ORDERABLES Final Result [facility] [place] [address] * (ABNORMAL) Vancomycin level trough (05/15/2024 4:41 AM HIGHBALLER) [facility] Vancomycin trough 9.7(L) 10.0 - 20.0 mcg/mL Comment:Reviewed Blood 05/15/2024 4:41 AM HIGHBALLER 05/15/2024 5:49 AM HIGHBALLER Karine Ulloa MD LAB BLOOD ORDERABLES Fin al Result Performing Organization Address [facility] Co de Phone Number [facility] Department [place] [address] * (ABNORMAL) Comprehensive metabolic panel (05/15/2024 4:41 AM HIGHBALLER) [facility] Sodium 142 135 - 145 mmol/L Potassium, pl 4.3 3.3 - 4.9 mmol/L [facility] Chloride 107 97 - 110 mmol/L [facility] CO2 29 22 - 32 mmol/L [facility] Anion gap 6 2 - 15 mmol/L [facility] BUN 9 6 - 25 mg/dL [facility] Creatinine 0.68(L) 0.80 - 1.30 mg/dL [facility] Glucose 105 70 - 199 mg/dL [facility] Comment: Interpretive Data Fasting glucose >/= [...] 2022. Calcium 9.0 8.5 - 10.3 mg/dL [facility] Bilirubin, total <0.2 0.1 - 1.2 mg/dL [facility] Protein, pl 6.0(L) 6.5 - 8.5 g/dL [facility] Albumin 3.4(L) 3.5 - 5.0 g/dL [facility] Alk phos 55 40 - 130 Units/L [facility] ALT 27 7 - 55 Units/L [facility] AST 23 10 - 50 Units/L [facility] Blood 05/15/2024 4:41 AM HIGHBALLER 05/15/2024 5:48 AM HIGHBALLER us Denise Gonzalez MD PhD LAB BLOOD ORDERABLES Final Result [facility] [place] [address] * Blood culture Blood (05/14/2024 11:29 PM HIGHBALLER) Report Final Report: No growth Blood 05/14/2024 11:2 9 PM HIGHBALLER 05/15/2024 12:50 AM HIGHBALLER Narrative [facility] - 05/19/2024 7:00 AM HIGHBALLER Collection->Peripheral 1. ?Blood cultures are incubated for [...] performance characteristics have been verified by the [facility] Microbiology Laboratory. For questions about this culture, contact the Microbiology Laboratory at [phone]. Interpretive data was last revised on 24. Karine Ulloa MD LAB MICROBIOLOGY - GENER AL ORDERABLES Final Result [facility] [place] [address] * Blood culture Blood (05/14/2024 11:29 PM HIGHBALLER) Report Final Report: No growth Blood 05/14/2024 11:2 9 PM HIGHBALLER 05/15/2024 12:50 AM HIGHBALLER Narrative [facility] - 05/19/2024 7:00 AM HIGHBALLER Collection->Peripheral 1. ?Blood cultures are incubated for [...] performance characteristics have been verified by the [facility] Microbiology Laboratory. For questions about this culture, contact the Microbiology Laboratory at [phone]. Interpretive data was last revised on 24. Karine Ulloa MD LAB MICROBIOLOGY - GENER AL ORDERABLES Final Result Performing Organization Address [facility] Co de Phone Number [facility] Department [place] [address] * eGFR (05/14/2024 5:08 AM HIGHBALLER) Pathologist [facility] eGFR >90 >=60 mL/min/1. 73 [...] last reviewed 2021. Blood 05/14/2024 5:08 AM HIGHBALLER 05/14/2024 6:48 AM HIGHBALLER us Denise Gonzalez MD PhD LAB BLOOD ORDERABLES Final Result Performing Organization Address [facility] Co de Phone Number [facility] Department [place] [address] * Differential, auto (05/14/2024 5:08 AM HIGHBALLER) Neutrophil abs 3.1 1.5 - 6.5 K/cumm Imm gran abs 0.0 0.0 - 0.1 K/cumm [facility] Lymphocyte abs 2.3 0.8 - 3.3 K/cumm [facility] Monocyte abs 0.7 0.2 - 0.8 K/cumm [facility] Eosinophil abs 0.4 0.0 - 0.5 K/cumm [facility] Basophil abs 0.1 0.0 - 0.1 K/cumm [facility] Neutrophil pct 47.2 % [facility] Comment: Interpretive Data Percent cell count reference ranges are not reported, since discordance with absolute values may lead to misinterpretation of CBC data. Current Interpretive Data was last revised on 2017. Imm gran pct 0.3 % [facility] Comment: Interpretive Data Percent cell count reference ranges are not reported, since discordance with absolute values may lead to misinterpretation of CBC data. Current Interpretive Data was last revised on 2017. Lymphocyte pct 34.6 % [facility] Comment: Interpretive Data Percent cell count reference ranges are not reported, since discordance with absolute values may lead to misinterpretation of CBC data. Current Interpretive Data was last revised on 2017. Monocyte pct 10.3 % [facility] Comment: Interpretive Data Percent cell count reference ranges are not reported, since discordance with absolute values may lead to misinterpretation of CBC data. Current Interpretive Data was last revised on 2017. Eosinophil pct 6.5 % [facility] Comment: Interpretive Data Percent cell count reference ranges are not reported, since discordance with absolute values may lead to misinterpretation of CBC data. Current Interpretive Data was last revised on 2017. Basophil pct 1.1 % [facility] Comment: Interpretive Data Percent cell count reference ranges are not reported, since discordance with absolute values may lead to misinterpretation of CBC data. Current Interpretive Data was last revised on 2017. Blood 05/14/2024 5:08 AM HIGHBALLER 05/14/2024 6:47 AM HIGHBALLER us Denise Gonzalez MD PhD LAB BLOOD ORDERABLES Final Result Performing Organization Address City/State/[facility] Co de Phone Number [facility] [place] [address] * (ABNORMAL) CBC with auto differential (05/14/2024 5:08 AM HIGHBALLER) [facility] WBC 6.6 3.8 - 9.9 K/cumm Hgb 12.5(L) 13.0 - 17.5 g/dL [facility] Hct 36.3(L) 38.9 - 50.3 % [facility] Plt 340 150 - 400 K/cumm [facility] MPV 9.9 9.1 - 12.3 fL [facility] RBC 4.09(L) 4.30 - 5.80 M/cumm [facility] MCV 88.8 81.3 - 96.4 fL [facility] MCH 30.6 27.1 - 33.3 pg [facility] MCHC 34.4 32.3 - 35.7 g/dL [facility] RDW CV 11.9 11.1 - 14.9 % [facility] RDW SD 37.9 35.7 - 48.1 fL [facility] NRBC abs 0.00 0.00 - 0.01 K/cumm [facility] Blood 05/14/2024 5:08 AM HIGHBALLER 05/14/2024 6:47 AM HIGHBALLER us Denise Gonzalez MD PhD LAB BLOOD ORDERABLES Final Result Performing Organization Address [facility] Co de Phone Number [facility] [place] [address] * Comprehensive metabolic panel (05/14/2024 5:08 AM HIGHBALLER) [facility] Sodium 142 135 - 145 mmol/L Potassium, pl 4.1 3.3 - 4.9 mmol/L [facility] Chloride 108 97 - 110 mmol/L [facility] CO2 27 22 - 32 mmol/L [facility] Anion gap 7 2 - 15 mmol/L [facility] BUN 12 6 - 25 mg/dL [facility] Creatinine 0.80 0.80 - 1.30 mg/dL [facility] Glucose 93 70 - 199 mg/dL [facility] Comment: Interpretive Data Fasting glucose >/= [...] 2022. Calcium 9.5 8.5 - 10.3 mg/dL [facility] Bilirubin, total <0.2 0.1 - 1.2 mg/dL [facility] Comment:Reviewed Protein, pl 6.8 6.5 - 8.5 g/dL [facility] Albumin 4.0 3.5 - 5.0 g/dL [facility] Alk phos 64 40 - 130 Units/L [facility] ALT 34 7 - 55 Units/L [facility] AST 24 10 - 50 Units/L [facility] Blood 05/14/2024 5:08 AM HIGHBALLER 05/14/2024 6:47 AM HIGHBALLER us Denise Gonzalez MD PhD LAB BLOOD ORDERABLES Final Result [facility] [place] [address] * (ABNORMAL) Vancomycin level trough (05/13/2024 4:15 PM HIGHBALLER) Pathologist [facility] Vancomycin trough 8.3(L) 10.0 - 20.0 mcg/mL Blood 05/13/2024 4:15 PM HIGHBALLER 05/13/2024 5:12 PM HIGHBALLER us Karine Ulloa MD LAB BLOOD ORDERABLES Fin al Result [facility] [place] [address] * eGFR (05/13/2024 6:14 AM HIGHBALLER) [facility] eGFR >90 >=60 mL/min/1. 73 m2 Comment: [...] last reviewed 2021. Blood 05/13/2024 6:14 AM HIGHBALLER 05/13/2024 7:50 AM HIGHBALLER us Denise Gonzalez MD PhD LAB BLOOD ORDERABLES Final Result [facility] Department [place] [address] * Differential, auto (05/13/2024 6:14 AM HIGHBALLER) [facility] Neutrophil abs 5.3 1.5 - 6.5 K/cumm Imm gran abs 0.0 0.0 - 0.1 K/cumm [facility] Lymphocyte abs 1.5 0.8 - 3.3 K/cumm [facility] Monocyte abs 0.7 0.2 - 0.8 K/cumm [facility] Eosinophil abs 0.3 0.0 - 0.5 K/cumm [facility] Basophil abs 0.1 0.0 - 0.1 K/cumm [facility] Neutrophil pct 67.1 % [facility] Comment: Interpretive Data Percent cell count reference ranges are not reported, since discordance with absolute values may lead to misinterpretation of CBC data. Current Interpretive Data was last revised on 2017. Imm gran pct 0.4 % [facility] Comment: Interpretive Data Percent cell count reference ranges are not reported, since discordance with absolute values may lead to misinterpretation of CBC data. Current Interpretive Data was last revised on 2017. Lymphocyte pct 18.9 % [facility] Comment: Interpretive Data Percent cell count reference ranges are not reported, since discordance with absolute values may lead to misinterpretation of CBC data. Current Interpretive Data was last revised on 2017. Monocyte pct 8.5 % [facility] Comment: Interpretive Data Percent cell count reference ranges are not reported, since discordance with absolute values may lead to misinterpretation of CBC data. Current Interpretive Data was last revised on 2017. Eosinophil pct 4.2 % [facility] Comment: Interpretive Data Percent cell count reference ranges are not reported, since discordance with absolute values may lead to misinterpretation of CBC data. Current Interpretive Data was last revised on 2017. Basophil pct 0.9 % [facility] Comment: Interpretive Data Percent cell count reference ranges are not reported, since discordance with absolute values may lead to misinterpretation of CBC data. Current Interpretive Data was last revised on 2017. Blood 05/13/2024 6:14 AM HIGHBALLER 05/13/2024 6:45 AM HIGHBALLER us Denise Gonzalez MD PhD LAB BLOOD ORDERABLES Final Result [facility] [place] [address] * (ABNORMAL) CBC with auto differential (05/13/2024 6:14 AM HIGHBALLER) [facility] WBC 7.9 3.8 - 9.9 K/cumm Hgb 11.7(L) 13.0 - 17.5 g/dL [facility] Hct 34.4(L) 38.9 - 50.3 % [facility] Plt 292 150 - 400 K/cumm [facility] MPV 9.5 9.1 - 12.3 fL [facility] RBC 3.92(L) 4.30 - 5.80 M/cumm [facility] MCV 87.8 81.3 - 96.4 fL [facility] MCH 29.8 27.1 - 33.3 pg [facility] MCHC 34.0 32.3 - 35.7 g/dL [facility] RDW CV 11.7 11.1 - 14.9 % [facility] RDW SD 37.2 35.7 - 48.1 fL [facility] NRBC abs 0.00 0.00 - 0.01 K/cumm [facility] Blood 05/13/2024 6:14 AM HIGHBALLER 05/13/2024 6:45 AM HIGHBALLER us Denise Gonzalez MD PhD LAB BLOOD ORDERABLES Final Result [facility] [place] [address] * Valproic acid level, total (05/13/2024 6:14 AM HIGHBALLER) [facility] Valproic Acid 55.0 50.0 - 100.0 mcg/mL Comment: Interpretive Data Therapeutic or toxic effects of anticonvulsant drugs may occur at different concentrations in different patients and the correlation between dose and clinical effect must be evaluated individually. Current interpretative data was last revised on 13. Blood 05/13/2024 6:14 AM HIGHBALLER 05/13/2024 6:45 AM HIGHBALLER Yaritza Hall LAB BLOOD ORDERABLES Final Result Performing Organization Address City/[facility] Co de Phone Number [facility] [place] [address] * (ABNORMAL) Carbamazepine level, total (05/13/2024 6:14 AM HIGHBALLER) Carbamazepine <3.0(L) 4.0 - 12.0 mcg/mL Comment: Interpretive Data Therapeutic or Toxic effect of anticonvulsant drugs may occur at different concentrations in different patients and the correlation between dose and clinical effect must be evaluated individually. Current interpretive data was last revised on 13. Blood 05/13/2024 6:14 AM HIGHBALLER 05/13/2024 6:45 AM HIGHBALLER Yaritza Hall LAB BLOOD ORDERABLES Final Result Performing Organization Address [facility] Co de Phone Number [facility] Department [place] [address] * (ABNORMAL) Comprehensive metabolic panel (05/13/2024 6:14 AM HIGHBALLER) Pathologist [facility] Sodium 141 135 - 145 mmol/L Potassium, pl 3.8 3.3 - 4.9 mmol/L [facility] Chloride 107 97 - 110 mmol/L [facility] CO2 26 22 - 32 mmol/L [facility] Anion gap 8 2 - 15 mmol/L [facility] BUN 12 6 - 25 mg/dL [facility] Creatinine 0.70(L) 0.80 - 1.30 mg/dL [facility] Glucose 103 70 - 199 mg/dL [facility] Comment: Interpretive Data Fasting glucose >/= [...] 2022. Calcium 8.9 8.5 - 10.3 mg/dL [facility] Bilirubin, total 0.2 0.1 - 1.2 mg/dL [facility] Protein, pl 6.2(L) 6.5 - 8.5 g/dL [facility] Albumin 3.5 3.5 - 5.0 g/dL [facility] Alk phos 58 40 - 130 Units/L [facility] ALT 34 7 - 55 Units/L [facility] AST 28 10 - 50 Units/L [facility] Blood 05/13/2024 6:14 AM HIGHBALLER 05/13/2024 6:51 AM HIGHBALLER Denise Gonzalez MD PhD LAB BLOOD ORDERABLES Final Result Performing Organization Address City/[facility]/ZIP Co de Phone Number [facility] [place] [address] * Check Sample (05/12/2024 12:27 PM HIGHBALLER) ABO Rh B Negative [facility] HCLL OTHER 05/12/2024 12:2 7 PM HIGHBALLER 05/12/2024 12:50 PM HIGHBALLER Cheryl Saldana MD PhD LAB BLOOD ORDERABLES Fi nal Result Performing Organization Address [facility] Co de Phone Number [facility] [place] [address] [facility] * (ABNORMAL) Aerobic and anaerobic culture and gram stain Abscess Finger, index, left (05/12/2024 12:27 PM HIGHBALLER) Direct Specimen Exam Stain: Rare polymorphonuclear leukocytes seen. Rare Gram Positive Cocci Report Final Report: Few Staphylococcus aureus Methicillin resistant (MRSA) by penicillin binding protein 2a (PBP2a) testing. Few Streptococcus pyogenes (Group A Streptococci) Streptococcus pyogenes is uniformly susceptible to beta-lactam antibiotics and vancomycin. ??Routine susceptibility testing is not performed. (.) [facility] Organism STAPHYLOCOCCUS AUREUS [facility] Organism STREPTOCOCCUS PYOGENES (GROUP A STREPTOCOCCI) [facility] Abscess (Finger, index, left) 05/12/2024 12:27 PM HIGHBALLER 05/12/2024 12:44 PM HIGHBALLER Narrative [facility] - 05/15/2024 1:25 PM HIGHBALLER Specimen received on an ESwab. Testing performed by [facility] Microbiology Laboratory ([phone]) Specimens submitted from normally sterile body sites [...] Cheryl Saldana MD PhD LAB MICROBIOLOGY - [facility] ORDERABLES Final Result [facility] [place] [address] * Surgical pathology (05/12/2024 12:00 PM HIGHBALLER) Tissue (Amputation non-tramatic) 05/12/2024 12:00 PM HIGHBALLER 05/12/2024 4:45 PM HIGHBALLER Narrative PATHOLOGY [facility] - 05/19/2024 12:00 PM HIGHBALLER EPIC results best viewed via link to PDF [facility] Merlene Hernandez [facility] [place] [address] Note to Patients: This report may contain [...] Gender: ??M : ??1985 (Age: 38) Address: ??[facility], [place], [place] ??[address] Hospital #: ??[id number] Taken:05/12/2024 Received:05/12/2024 Reported: 05/19/2024 Patient Type: [facility] Inpatient ?? Service: Medical Location: [place] [address] Physician(s): ??Chen Gar M.D. MD Cheryl Sue [...] bone. ??See attached photographs. ??Labeled A1 - marketing sales representative open wound to black- inked skin and soft tissue margin; A2 - marketing sales representative bone underlying open wound, submitted following acid decalcification. ??Jar 3. ? dxb/05/15/2024 15:52 PA(s): Montrell Sanchez Aruna, YUESF([facility])CM By this signature, I attest that the above diagnosis is based upon my personal examination of the slides(and/or other material). Addenda/Procedures The performance characteristics of some immunohistochemical stains, fluorescence in-situ hybridization tests and immunophenotyping by flow cytometry cited in this report (if any) were determined by the Surgical Pathology and Flow Cytometry Departments at [facility] as part of an ongoing software quality assurance specialist program and in compliance with federally mandated [...] Surgical Pathology and Flow Cytometry Departments of [facility]. ??It has not been cleared or approved by the U. S. Food and Drug Administration. IMAGES AND SCANNED DOCUMENTS, IF INCLUDED, ONLY VIEWABLE IN PDF VERSION OF REPORT us Cheryl Saldana MD PhD LAB PATHOLOGY ORDERABLE S Final Result Performing Organization Address [facility]/ZIP Co de Phone Number PATHOLOGY [facility] 3rd Floor [place], [place] [phone] * Type and screen (05/12/2024 9:30 AM HIGHBALLER) Song, indirect Negative ABO Rh B Negative [facility] Blood 05/12/2024 9:30 AM HIGHBALLER 05/12/2024 10:07 AM HIGHBALLER Narrative [facility] - 05/12/2024 11:00 AM HIGHBALLER Has the patient had Daratumumab or Isatuximab in the past 6 months?->Unknown Miguel Krishnamurthy MD LAB BLOOD BANK TEST ORDERABLES Final Result Performing Organization Address [facility] de Phone Number [facility] Department [place] [address] * XR Hand Left 3 or More Views (05/12/2024 6:27 AM HIGHBALLER) Anatomical Region Laterality Modality Upper Extremities, Hand Left Computed Radiography 05/12/2024 7:27 AM HIGHBALLER Impressions 05/12/2024 7:54 AM HIGHBALLER There is diffuse soft tissue swelling about [...] Olvera M.D., Ph.D Narrative 05/12/2024 7:54 AM HIGHBALLER EXAMINATION: XR HAND LEFT 3 OR MORE [...] l Result * eGFR (05/12/2024 6:05 AM HIGHBALLER) eGFR >90 >=60 mL/min/1. 73 m2 Comment: [...] reviewed 2021. Blood 05/12/2024 6:0 5 AM HIGHBALLER 05/12/2024 6:16 AM HIGHBALLER us Cole Epperson MD LAB BLOOD ORDERABLES F inal Result [facility] Department [place] [address] * (ABNORMAL) Differential, auto (05/12/2024 6:05 AM HIGHBALLER) Neutrophil abs 6.5 1.5 - 6.5 K/cumm Imm gran abs 0.0 0.0 - 0.1 K/cumm [facility] Lymphocyte abs 1.5 0.8 - 3.3 K/cumm [facility] Monocyte abs 0.9(H) 0.2 - 0.8 K/cumm [facility] Eosinophil abs 0.2 0.0 - 0.5 K/cumm [facility] Basophil abs 0.1 0.0 - 0.1 K/cumm [facility] Neutrophil pct 71.5 % [facility] Comment: Interpretive Data Percent cell count reference ranges are not reported, since discordance with absolute values may lead to misinterpretation of CBC data. Current Interpretive Data was last revised on 2017. Imm gran pct 0.2 % [facility] Comment: Interpretive Data Percent cell count reference ranges are not reported, since discordance with absolute values may lead to misinterpretation of CBC data. Current Interpretive Data was last revised on 2017. Lymphocyte pct 16.0 % [facility] Comment: Interpretive Data Percent cell count reference ranges are not reported, since discordance with absolute values may lead to misinterpretation of CBC data. Current Interpretive Data was last revised on 2017. Monocyte pct 9.8 % [facility] Comment: Interpretive Data Percent cell count reference ranges are not reported, since discordance with absolute values may lead to misinterpretation of CBC data. Current Interpretive Data was last revised on 2017. Eosinophil pct 1.9 % [facility] Comment: Interpretive Data Percent cell count reference ranges are not reported, since discordance with absolute values may lead to misinterpretation of CBC data. Current Interpretive Data was last revised on 2017. Basophil pct 0.6 % [facility] Comment: Interpretive Data Percent cell count reference ranges are not reported, since discordance with absolute values may lead to misinterpretation of CBC data. Current Interpretive Data was last revised on 2017. Blood 05/12/2024 6:05 AM HIGHBALLER 05/12/2024 6:16 AM HIGHBALLER us Cole Epperson MD LAB BLOOD ORDERABLES F inal Result [facility] Department [place] [address] * (ABNORMAL) CBC with auto differential (05/12/2024 6:05 AM HIGHBALLER) WBC 9.1 3.8 - 9.9 K/cumm Hgb 12.7(L) 13.0 - 17.5 g/dL [facility] Hct 36.9(L) 38.9 - 50.3 % [facility] Plt 310 150 - 400 K/cumm [facility] MPV 9.0(L) 9.1 - 12.3 fL [facility] RBC 4.26(L) 4.30 - 5.80 M/cumm [facility] MCV 86.6 81.3 - 96.4 fL [facility] MCH 29.8 27.1 - 33.3 pg [facility] MCHC 34.4 32.3 - 35.7 g/dL [facility] RDW CV 11.9 11.1 - 14.9 % [facility] RDW SD 38.2 35.7 - 48.1 fL [facility] NRBC abs 0.00 0.00 - 0.01 K/cumm [facility] Blood 05/12/2024 6:05 AM HIGHBALLER 05/12/2024 6:16 AM HIGHBALLER us Cole Epperson MD LAB BLOOD ORDERABLES F inal Result [facility] [place] [address] * (ABNORMAL) Blood culture Blood Peripheral (05/12/2024 6:05 AM HIGHBALLER) Pathologist [facility] Direct Specimen Exam Molecular Analysis: Staphylococcus species detected by the [facility] BCID-GP panel. Single positive culture may represent contamination. This is most suggestive of a coagulase-negative Staphylococcus species. Please refer to final culture-based result for confirmation. This test does not exclude the possibility of a mixed bacterial infection. Notification of: Staphylococcus species called to and read back by: Radha Saleh MD ([phone]) on 05/14/2024 01:38:13 by: Mikey Hernandez MLS Direct Specimen Exam Stain: Gram Positive Cocci in clusters Time to culture positivity (aerobic media): 40.7 hours Notification of: Gram Positive Cocci in clusters called to and read back by: Pablito Peralta MD PhD ([phone]) on 05/13/2024 23:55:17 by: Mikey Hernandez MLS [facility] Report Final Report: Staphylococcus pettenkoferi Single blood culture positive for this microorganism. ??Isolate is a possible contaminant. If a similar isolate is recovered from a second blood culture collected within 3 days of this culture, both will be evaluated and, if determined to be the same species, antimicrobial susceptibility testing will be performed. (.) [facility]IN[facility] Organism STAPHYLOCOCCUS PETTENKOFERI [facility] Blood (Peripheral) 05/12/2024 6:05 AM HIGHBALLER 05/12/2024 6:26 AM HIGHBALLER Narrative [facility]INI [facility] - 05/17/2024 7:30 AM HIGHBALLER From a different site than #1. Draw [...] performance characteristics have been verified by the [facility] Microbiology Laboratory. For questions about this culture, contact the Microbiology Laboratory at [phone]. Interpretive data was last revised on 24. us Cole Epperson MD LAB MICROBIOLOGY - GEN ERAL ORDERABLES Final Result [facility] [place] [address] * Blood culture Blood Peripheral (05/12/2024 6:05 AM HIGHBALLER) Report Final Report: No growth Blood (Peripheral) 05/12/2024 6:05 AM HIGHBALLER 05/12/2024 6:26 AM HIGHBALLER Narrative [facility]INI [facility] - 05/16/2024 7:00 AM HIGHBALLER Draw Blood cultures before administration of Antibiotics [...] performance characteristics have been verified by the [facility] Microbiology Laboratory. For questions about this culture, contact the Microbiology Laboratory at [phone]. Interpretive data was last revised on 24. Cole Epperson MD LAB MICROBIOLOGY - GEN ERAL ORDERABLES Final Result Performing Organization Address City/[facility]/ZIP Co de Phone Number [facility] Department [place] [address] * (ABNORMAL) Erythrocyte sedimentation rate (05/12/2024 6:05 AM HIGHBALLER) Erythrocyte sedimentation rate 16(H) 1 - 15 mm/hr Blood 05/12/2024 6:05 AM HIGHBALLER 05/12/2024 6:16 AM HIGHBALLER Result [facility] Cole Epperson MD LAB BLOOD ORDERABLES F inal Result [facility] [place] [address] * CRP (acute phase) (05/12/2024 6:05 AM HIGHBALLER) CRP 9.9 <=10.0 mg/L Blood 05/12/2024 6:05 AM HIGHBALLER 05/12/2024 6:16 AM HIGHBALLER Cole Epperson MD LAB BLOOD ORDERABLES F inal Result Performing Organization Address City/[facility]/ZIP Co de Phone Number [facility] [place] [address] * Comprehensive metabolic panel (05/12/2024 6:05 AM HIGHBALLER) Sodium 138 135 - 145 mmol/L Potassium, pl 3.8 3.3 - 4.9 mmol/L [facility] Chloride 101 97 - 110 mmol/L [facility] CO2 27 22 - 32 mmol/L [facility] Anion gap 10 2 - 15 mmol/L [facility] BUN 16 6 - 25 mg/dL [facility] Creatinine 0.90 0.80 - 1.30 mg/dL [facility] Glucose 93 70 - 199 mg/dL [facility] Comment: Interpretive Data Fasting glucose >/= [...] 2022. Calcium 9.7 8.5 - 10.3 mg/dL [facility] Bilirubin, total 0.3 0.1 - 1.2 mg/dL [facility] Protein, pl 7.2 6.5 - 8.5 g/dL [facility] Albumin 4.3 3.5 - 5.0 g/dL [facility] Alk phos 67 40 - 130 Units/L [facility] ALT 40 7 - 55 Units/L [facility] AST 40 10 - 50 Units/L [facility] Blood 05/12/2024 6:05 AM HIGHBALLER 05/12/2024 6:16 AM HIGHBALLER us Cole Epperson MD LAB BLOOD ORDERABLES F inal Result Performing Organization Address [facility]/ZIP Co de Phone Number [facility] [place] [address] * XR Finger 2nd Index Left (04/30/2024 2:29 PM HIGHBALLER) Anatomical Region Laterality Modality Upper Extremities, Hand, Fingers Left Computed Radiography 04/30/2024 3:04 PM HIGHBALLER Narrative 04/30/2024 3:05 PM HIGHBALLER EXAM DESCRIPTION: XR FINGER 2ND INDEX LEFT [...] PM T: ??04/30/2024 3:05 PM Report ID: [id number] Reading Location: ??[id number] Procedure Note Wilver Morales MD - 04/30/2024 [...] by Wilver Morales M.D. JR: Report ID: [id number] Reading Location: [place] [address] Peter Marshall MD IMG XR PROCEDURES Final Resu lt * Hepatitis panel, acute (09/27/2019 1:01 PM CDT) Hep A IgM Nonreactive Nonreactive [facility] Comment: Interpretive Data: If Hep A IgM Ab is reported as Equivocal, a new sample should be drawn in two weeks for testing. Current interpretive data was last revised on 19. Testing performed by: [address] [address] Hep B core IgM Nonreactive Nonreactive [facility] Comment: Interpretive Data If HepB Core IgM Ab is reported as Equivocal, a new sample should be drawn in two weeks for testing. Current interpretive data was last revised on 19. Testing performed by: [facility], [address] [place] [address]., [address] Hep C Ab Nonreactive Nonreactive [facility] [...] last revised on 2019. 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 Source: [facility]. Last positive 05/05/24 Madeleine Kirby RN 05/04/2024 05/12/2024 Insurance [facility] Advance Directives For more information, please contact: [phone] * Full Code (Latest Code Status on File) Date Activated Date Inactivated Comments 05/26/2024 11:46 AM 05/28/2024 7:35 PM * Full Code Date Activated Date Inactivated Comments 05/12/2024 8:40 PM 05/19/2024 8:19 PM Care Teams Elevator Repair Mechanic Relationship Specialty Start Date End Date No, Physician PCP - General 06/07/24 Ashley Woodward MD Internal Medicine 06/07/24 Ashley Woodward MD 08/06/23
--- OUTSIDE RECORDS SUMMARY | 2024-07-04 21:24 | XMS_ITS | Encounter Summary ---
Author Organization [employer] Address [address] [place] [address] Care Team Providers Care Talent Acquisition Associate Name Role Phone Unavailable Primary Care Provider Unavailabl e Encounter Details Date Type Department Care Team (Late st Contact Info) Description 07/04/2024 External Device Data [facility] ABSTRACTION Provider, Abstract NO ADDRESS ON FILE Social History Tobacco Use Types Packs/Day Years Used Date Smoking Tobacco: Every Day Cigarettes Smokeless Tobacco: Never Alcohol Use Standard Drinks/Week Comments Yes 0 (1 standard drink = 0.6 oz pur e alcohol) Feeling Safe Answer Date Recorded Are you in a relationship wi th someone who hurts you emotionally and/or physically? 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
--- OUTSIDE RECORDS SUMMARY | 2024-07-04 21:24 | XMS_ITS | Encounter Summary ---
Author Organization [employer] Address 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
--- OUTSIDE RECORDS SUMMARY | 2024-07-04 21:24 | XMS_ITS | Encounter Summary ---
Author Organization [employer] Address 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
[2024-07-04 21:44] LABS: Basophils Absolute Auto 0.1 K/mm3 (0.0-0.1); Basophils Percent Auto 0.8 % (0.2-1.2); Eosinophils Absolute Auto 0.4 K/mm3 (0-0.3); Eosinophils Percent Auto 5.1 % (0-4.4); Hematocrit 37.9 % (42.0-52.0); Hemoglobin 12.3 g/dL (14.0-18.0); Immature Granulocyte Absolute 0.03 K/mm3 (0.00-0.031); Immature Granulocyte Percent A 0.4 % (0-0.5); Lymphocytes Absolute Auto 3.08 K/mm3 (0.9-3.2); Lymphocytes Percent Auto 40.5 % (18.3-44.2); Mean Corpuscular HGB Conc 32.5 g/dl (32-36); Mean Corpuscular Hemoglobin 29.4 pg (26-34); Mean Corpuscular Volume 90.5 fl (80-100); Mean Platelet Volume 9.3 fl (7.4-10.4); Monocytes Absolute Auto 0.8 K/mm3 (0.1-0.6); Monocytes Percent Auto 10.3 % (2.6-8.5); Neutrophils Absolute Auto 3.3 K/mm3 (1.3-6.7); Neutrophils Percent Auto 42.9 % (45.5-73.1); Platelet Count Result 262 k/mm3 (150-375); Red Blood Count 4.19 M/mm3 (4.6-6.20); Red Cell Distribution Width 12.2 % (11.5-14.5); White Blood Count 7.6 K/mm3 (4.5-10.0)
[2024-07-04 21:56] LABS: Alanine Aminotransferase 28 U/L (6-50); Alkaline Phosphatase 76 U/L (38-126); Anion Gap 5 mmol/L (4-12); Aspartate Amino Transferase 29 U/L (17-59); Bilirubin,Total 0.6 mg/dL (0.2-1.3); Blood Urea Nitrogen 13 mg/dL (9-20); Calcium 9.4 mg/dL (8.4-10.2); Carbon Dioxide 27 mmol/L (22-30); Chloride 105 mmol/L (98-107); Estimated CRCL calculation 140 ml/min; Estimated Glomerular Filt Rate > 60; Glucose 86 mg/dL (65-110); Potassium 3.8 mmol/L (3.4-5.0); Sodium 137 mmol/L (137-145)
--- NOTE | 2024-07-04 22:10 | ED_ITS ---
HPI - Psych General Chief Complaint: Psychiatric Symptoms Stated Complaint: hallucinations, left head pain, Time Seen by Provider: 07/04/24 20:49 History of Present Illness HPI Narrative: Patient is a 38-year-old male who presents to the ER complaints mental health concerns and left hand pain. He reports he had his left pointer finger amputated on May 10, 2024. Patient reports his hand has swollen and is painful. He also reports he has history of schizophrenia and is NOT currently medicated. Patient endorses ringing in my ears and hearing voices. He denies any illicit drug use. Patient also endorses a headache at the time of examination. He is not very interactive with staff, nor is he a forthcoming with his medical history or complaints. Patient denies chest pain, shortness of breath, wheezing, recent fevers, decreased range of motion in his left hand. He denies any other medical history related to this ER visit. Related Data Allergies Allergy/AdvReac Type Severity Reaction Status Date / Time penicillin V Allergy Hives Verified 05/24/24 13:12 Review of Systems 2 Review of Systems: All systems reviewed & are unremarkable except as noted in HPI and below PMFSH Past Medical History Medical History No significant past medical history Surgical History Surgical History No significant past surgical history Exam 2 Narrative: GENERAL: Well appearing, well-nourished, non-toxic, in no acute distress. HEAD: Normocephalic, atraumatic. NECK: Supple. No adenopathy, no masses. RESPIRATORY: Airway patent, respirations nonlabored. Clear to auscultation bilaterally, no rales, rhonchi, wheezing. CARDIOVASCULAR: Regular rate and rhythm without murmurs, rubs, or gallops. Peripheral pulses 2+ and equal bilaterally. ABDOMINAL: Soft, nontender, nondistended, no hepatosplenomegaly. Normoactive BS. MUSCULOSKELETAL: Moves all extremities. Strength/ROM intact without gross deformities. SKIN: Warm, dry, normal color. No rashes. Missing L pointer finger d/t amputation two months ago. NEURO: A&O X3. Speech clear. Cranial nerves II-XII grossly intact. Steady gait. No ataxic movements. PSYCHIATRIC: Appropriate mood and affect. Normal interaction. Course Vital Signs Vital signs: Vital Signs Temperature 36.4 C 07/04/24 17:09 Pulse Rate 74 07/04/24 17:09 Respiratory Rate 20 07/04/24 17:09 Blood Pressure 124/70 07/04/24 17:09 Pulse Oximetry 99 07/04/24 17:09 Oxygen Delivery Room Air 07/04/24 17:09 Temperature 36.4 C 07/04/24 17:09 Pulse Rate 64 07/05/24 00:05 Respiratory Rate 14 07/05/24 00:05 Blood Pressure 116/72 07/04/24 21:12 Pulse Oximetry 99 07/05/24 00:05 Oxygen Delivery Room Air 07/04/24 17:09 MDM - Psych MDM Narrative Medical decision making narrative: Patient is a 38-year-old male who presents to the ER complaints mental health concerns and left hand pain. He reports he had his left pointer finger amputated on May 10, 2024. Patient reports his hand has swollen and is painful. He also reports he has history of schizophrenia and is NOT currently medicated. Patient endorses ringing in my ears and hearing voices. He denies any illicit drug use. Patient also endorses a headache at the time of examination. He is not very interactive with staff, nor is he a forthcoming with his medical history or complaints. Patient denies chest pain, shortness of breath, wheezing, recent fevers, decreased range of motion in his left hand. He denies any other medical history related to this ER visit. Labs Ordered: COVID/spleen/lab RC, TSH, ethanol, CMP, CBC, UA, UDS Imaging Ordered: X-ray left hand, CT brain scan Medications Ordered: None necessary Results: Patient's CT brain scan indicates Hyperdense embolization material in right frontal lobe. 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 Patient's TSH was 0.325. His UDS was positive for amphetamines and marijuana. Diagnosis: altered mental status d/t drug abuse, schizophrenia Consults: 0130- Pt is medically cleared for intake. 0245-Intake is here to with patient. Patient Education/Shared MDM: Results of patient's urinalysis, blood work, and swab shared patient. Recommendations from intake is that patient can be discharged safely with plan for follow-up with them. Patient told intake he already has an appointment set up a mental health facility later today. He is alert and oriented x4 and capable of making his own decisions at the time of examination. Patient verbalized understanding is in agreement with plan. Vital signs stable upon time of discharge. All questions answered. Differential Diagnosis Differential diagnosis: Likely acute psychosis, chronic schizophrenia, suicidal ideation, bipolar disorder and drug-induced psychotic disorder Lab Data Attestation: I reviewed the patient's lab results. 07/04/24 21:34 07/04/24 21:34 Labs: Lab Results 07/04/24 07/05/24 Range/Units 21:34 00:26 WBC 7.6 (4.5-10.0) K/mm3 RBC 4.19 L (4.6-6.20) M/mm3 Hgb 12.3 L (14.0-18.0) g/dL Hct 37.9 L (42.0-52.0) % MCV 90.5 (80-100) fl MCH 29.4 (26-34) pg MCHC 32.5 (32-36) g/dl RDW 12.2 (11.5-14.5) % Plt Count 262 (150-375) k/mm3 MPV 9.3 (7.4-10.4) fl Immature Gran % (Auto) 0.4 (0-0.5) % Neut % (Auto) 42.9 L (45.5-73.1) % Lymph % (Auto) 40.5 (18.3-44.2) % Crosby % (Auto) 10.3 H (2.6-8.5) % Eos % (Auto) 5.1 H (0-4.4) % Baso % (Auto) 0.8 (0.2-1.2) % Lymph # (Auto) 3.08 (0.9-3.2) K/mm3 Crosby # (Auto) 0.8 H (0.1-0.6) K/mm3 Eos # (Auto) 0.4 H (0-0.3) K/mm3 Baso # (Auto) 0.1 (0.0-0.1) K/mm3 Abs Immat Gran (auto) 0.03 (0.00-0.031) K/mm3 Absolute Neuts (auto) 3.3 (1.3-6.7) K/mm3 Absolute Nucleated RBC 0.000 (0.0-0.012) K/mm3 Nucleated RBC % 0.0 (0.0-0.2) % Sodium 137 (137-145) mmol/L Potassium 3.8 (3.4-5.0) mmol/L Chloride 105 (98-107) mmol/L Carbon Dioxide 27 (22-30) mmol/L Anion Gap 5 (4-12) mmol/L BUN 13 (9-20) mg/dL Creatinine 0.56 L (0.7-1.3) mg/dL Estim Creat Clear Calc 140 ml/min Estimated GFR > 60 (59 - ) Glucose 86 (65-110) mg/dL Calcium 9.4 (8.4-10.2) mg/dL Total Bilirubin 0.6 (0.2-1.3) mg/dL AST 29 (17-59) U/L ALT 28 (6-50) U/L Alkaline Phosphatase 76 (38-126) U/L Total Protein 7.0 (6.3-8.2) g/dL Albumin 4.0 (3.5-5.1) g/dL TSH 0.325 L (0.465-4.680) uIU/mL Urine Color Dark yellow (Yellow) Urine Appearance Clear (Clear) Urine pH 6.0 (5.0-9.0) Ur Specific [place] 1.030 (1.001-1.035) Urine Protein Negative (Negative) mg/dL Urine Glucose (UA) Negative (Negative) mg/dL Urine Ketones Negative (Negative) mg/dL Ur Blood (Man) Negative (Negative) Urine Nitrate Negative (Negative) Urine Bilirubin Negative (Negative) Urine Urobilinogen 1.0 (<2.0) mg/dL Leukocyte Esterase Rfl Negative (Negative) SHARONDA/UL Urine Opiates Screen Negative (Negative) Urine Methadone Screen Negative (Negative) Ur Barbiturates Screen Negative (Negative) Ur Phencyclidine Scrn Negative (Negative) Ur Amphetamine Screen Positive A (Negative) U Benzodiazepines Scrn Negative (Negative) Urine Cocaine Screen Negative (Negative) U Cannabinoids Screen Positive A (Negative) Ethyl Alcohol < 10 (<10) mg/dL Influenza A (RT-PCR) Negative (Negative) Influenza B (RT-PCR) Negative (Negative) RSV (RT-PCR) Negative (Negative) SARS-CoV-2 RNA (RT-PCR) Positive A (Negative) Imaging Data Attestation: I personally reviewed and interpreted this imaging study as follows: Radiologist's impression: Impressions Head CT 07/04/24 22:05 IMPRESSION: 1. Hyperdense embolization material in right frontal lobe. 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 Hand X-Ray 07/04/24 22:11 IMPRESSION: 1. No evidence of osteomyelitis. Discharge Plan Discharge Clinical Impression: Acute episode of schizophrenia with history of multiple episodes, Altered mental status associated with intoxication, COVID-19 Patient Disposition: Home, Self-Care Condition: Stable Instructions: Antibiotic Form, Schizophrenia (ED), Methamphetamine Use Disorder (ED), COVID-19 (Coronavirus Disease 2019) (ED) Additional Instructions: Please return to the ER with an worsening symptoms. Follow-up with your mental health outpatient appointment as planned. Patient Language: Citizen Of [place] Prescriptions: No Action ibuprofen 800 mg tablet 800 mg PO TID PRN (Reason: pain) Qty: 20 0RF cephalexin 500 mg capsule 500 mg PO Q6H Qty: 28 0RF Follow-up/Referrals: UNKNOWN,DOCTOR [Primary Care Provider] - Time of Disposition: 03:29
[2024-07-04 22:20] LABS: Influenza A QL RT-PCR Negative (Negative); Influenza B QL RT-PCR Negative (Negative); RSV RNA, RT-PCR Negative (Negative); SARS-CoV-2 RNA PCR Positive (Negative)
[2024-07-04 22:21] LABS: Ethanol < 10 mg/dL (<10)
[2024-07-04 22:24] LABS: Thyroid Stimulating Hormone 0.325 uIU/mL (0.465-4.680)
[2024-07-05 00:05] VITALS: PULSE 64; RESP 14; O2SAT 99
[2024-07-05 00:36] LABS: Add Urine Microscopic? YES; Appearance Urine Clear (Clear); Bilirubin Urine Negative (Negative); Blood Urine Negative (Negative); Color Urine Dark Yellow (Yellow); Glucose Urine UA Negative (Negative); Ketones Urine Negative (Negative); Leukocyte Esterase Ur Negative LEU/UL (Negative); Nitrate Urine Negative (Negative); Protein Urine Negative (Negative)
[2024-07-05 01:08] LABS: Barbiturate Screen Urine Negative (Negative); Benzodiazepines Screen Urine Negative (Negative)
[2024-07-05 01:23] LABS: Cannabinoid Screen Urine Positive (Negative); Cocaine Screen Urine Negative (Negative); Methadone Screen Urine Negative (Negative); Opiate Screen Urine Negative (Negative); Phencyclidine Screen Urine Negative (Negative)
[2024-07-05 01:50] LABS: Amphetamine Screen Urine Positive (Negative)
--- NOTE | 2024-07-05 09:54 | PCCCNOTE ---
0930-Provided a bus token for transportation home as requested.-varsha.
== END 2024-07-05 03:53 | disposition home or self-care (01) ==
PROVIDERS: Emergency Provider Registered Nurse
DX: F20.9 Schizophrenia, unspecified (principal); R41.82 Altered mental status, unspecified; U07.1 COVID-19; T50.905A Adverse effect of unspecified drugs, medicaments and biological substances, initial encounter
CPT/HCPCS: 36415; 70450; 73130; 80053; 80307; 81001; 82077; 84443; 85025; 87637; 93005; 99284